=== PATIENT | female | born 1945 | race Caucasian/White ===

== ENCOUNTER 2020-05-31 02:53 | Inpatient (IN) | payer MEDICARE, SELFPAY ==
[2020-05-31] VITALS (161 sets, daily range): BP systolic 106–220; BP diastolic 53–127; PULSE 51–124; RESP 12–39; TEMP 36.2–36.9; O2SAT 78–100; BMI 33.3
--- NOTE | 2020-05-31 02:54 | XR_ITS ---
WS: [id number] Exam: XR chest 1V portable [id number] Date/Time of Exam: 05/31/2020 3:16 AM Reason For Exam: ams Comparison 07/30/2016. Infiltrate along the left heart border and probably in the left lower lobe. There may also be right p erihilar infiltrate. Cardiomediastinal structures are unremarkable for portable AP technique. Lung vo lumes are decreased secondary to limited inspiration. No pneumothorax. No pleural effusion. Pulmonary vascularity is prominent which may be due to Limited inspiration. Recommendations: A detailed PA and lateral chest radiograph would be helpful for follow-up. XR/XR chest 1V portable [id number] IMPRESSION: 1. Infiltrates in the region of the lingula and possibly the left lower lobe collins spicious for developing pneumonia. There may also be right perihilar infiltrate .
--- NOTE | 2020-05-31 02:54 | CTR_ITS ---
PROCEDURE INFORMATION: Exam: CT Head Without Contrast Exam date and time: 05/31/2020 2:56 AM Age: 74 years old Clinical indication: Speech disturbance and weakness, extremity; Patient HX: Poss CVA. Patient C/O numbness tingling to right upper extremity. Intermittent slurred speech. Uncontrolled full body tremors. Emesis while on CT table. ; Additional info: AMS TECHNIQUE: Imaging protocol: Computed tomography of the head without contrast. Radiation optimization: All CT scans at this facility use at least one of these dose optimization techniques: automated exposure control; mA and/or kV adjustment per patient size (includes targeted exams where dose is matched to clinical indication); or iterative reconstruction. Other technique: STROKE PROTOCOL was implemented. COMPARISON: No relevant prior studies available. RADIATION DOSE METRICS: Total DLP (mGy-cm): 1328.04 FINDINGS: Brain: Normal. No hemorrhage. Unremarkable white matter. No mass effect. Cerebral ventricles: No ventriculomegaly. Bones/joints: Unremarkable. No acute fracture. Paranasal sinuses: Visualized sinuses are unremarkable. No fluid levels. Mastoid air cells: Visualized mastoid air cells are well aerated. Soft tissues: Unremarkable. CT/CT head wo con* [id number] IMPRESSION: No acute intracranial abnormality. ASSESSMENT: ASPECTS ([place] Stroke Program Early CT Score) is 10 Radiation Dose CTDIVOL = (mGy): DLP = 1328.04 (mGy-cm)
--- NOTE | 2020-05-31 02:55 | ECG_ITS ---
[facility] Test Date: 2020-05-31 Pat Name: Katy Noble Department: Room: Gender: Female Bioinformatics Assistant: : 1945 Requested By: Davi Garcia Order Number: [id number] Jackson MD: Herbert Brown M.D. Measurements Intervals Martha Rate: 96 P: 61 IL: 200 QRS: -3 QRSD: 106 T: 89 QT: 371 QTc: 470 Interpretive Statements SINUS RHYTHM POSSIBLE LEFT ATRIAL ENLARGEMENT [-0.1mV P WAVE IN V1/V2] LEFT VENTRICULAR HYPERTROPHY AND ST-T CHANGE [VOLTAGE CRITERIA PLUS ST/T ABNORMALITY] Compared to ECG 07/28/2016 14:23:42 ST (T wave) deviation now present T-wave abnormality no longer present Electronically Signed On 05-31-2020 18:02:54 CAMP DISHWASHER by Herbert Brown M.D. [id number]
--- NOTE | 2020-05-31 02:56 | W.ED.NEUROSD ---
HPI - Neuro Symptoms/Deficit General: Chief Complaint: Neuro Symptoms/Deficit Stated Complaint: poss stroke Time Seen by Provider: 05/31/20 02:54 Source: patient and EMS Mode of arrival: EMS Limitations: no limitations History of Present Illness: HPI Narrative: Katy is a 74-year-old female who states she has been having numbness down her left arm since 6 PM yesterday. Patient also has had nausea vomiting complains of a slight headache. Patient has chorea-like movements and states she has had this for years. She denies any specific weaknesses. Denies any slurred speech. States she has the severe numbness though on her arm and leg. Patient does have some aphasia and seems to have a hard time finding words. Associated symptoms: Deny chest pain, headache(s), nausea or vomiting Review of Systems Const: Denies: fever(s), chills, body aches or change in appetite Eyes: Denies: blurry vision or eye discomfort ENMT: Denies: throat pain or dental pain Card: Denies: chest pain Resp: Denies: dyspnea GI: Denies: abdominal pain, nausea, vomiting or diarrhea : Denies: dysuria Musc: Denies: neck pain or back pain Skin/Breast: Denies: rash Neuro: Reports: numbness in extremities; Denies: headache(s) Psych: Denies: depression [place]/Lymph: Denies: easy bruising All/Imm: Denies: urticaria NIH stroke score NIHSS: Level Of Consciousness - 1a: 0 Level Of Consciousness Questions - 1b: Both Correct Level Of Consciousness Commands - 1c: Both Correct Best Gaze - 2: Normal Visual Lander[place] - 3: No Visual Loss Facial Palsy - 4: Normal Motor Arm Right - 5: No Drift Motor Arm Left - 5: No Drift Motor Leg Right - 6: No Drift Motor Leg Left - 6: No Drift Limb Ataxia - 7: Absent Sensory - 8: Mild To Moderate Loss Best Language - 9: Mild/Moderate Aphasia Dysarthia - 10: Normal Extinction And Inattention - 11: 0 Score: Total Score: 2 Physical Exam Const: COMMON NORMALS: patient oriented x3 OTHER: Patient appears very anxious and has severe movements to all extremities HENMT: COMMON NORMALS: normocephalic and atraumatic HEAD & SCALP: normocephalic and atraumatic Eye: COMMON NORMALS: Equal, round and reactive pupils present and EOMs intact bilaterally PUPIL: Yes Equal, round and reactive pupils present Neck/C-Spine: COMMON NORMALS: full ROM and supple Chest: COMMONS NORMALS: normal inspection of the chest and normal palpation of entire chest wall Resp: COMMON NORMALS: normal respiratory effort, No retractions, No use of accessory muscles and clear to auscultation bilaterally AUSCULTATION: clear to auscultation bilaterally Cardio: COMMON NORMALS: regular rate, regular rhythm and No murmurs present (Cardio) RATE: regular rate RHYTHM: regular rhythm GI: COMMON NORMALS: Normal to inspection, nondistended, normoactive bowel sounds present, Soft to palpation, non-tender and no masses PALPATION: Yes Soft to palpation Extremity: COMMON NORMALS: normal to inspection and full ROM Neuro: COMMON NORMALS: patient oriented x3, moves all extremities and no focal motor deficits OTHER: Some decrease sensation to the right arm and leg. Patient seems to have some aphasia as well. Psych: COMMON NORMALS: mental status grossly normal, Normal thought process present and cooperative THOUGHT PROCESS: Normal thought process present Skin: COMMON NORMALS: no rashes or lesions noted and no wounds GENERAL SKIN EXAM: no rashes or lesions noted Course Vital Signs: Vital signs: Vital Signs Temperature 98.1 F 05/31/20 02:53 Pulse Rate 69 05/31/20 04:12 Respiratory Rate 12 05/31/20 04:12 Blood Pressure 182/73 05/31/20 04:12 Pulse Oximetry 100 05/31/20 04:12 MDM - Neuro Symptoms/Deficit MDM Narrative: Medical decision making narrative: Patient presents here with paresthesias along with some word finding difficulties. Patient's head CT here showed no acute findings. Her CTA showed some right internal carotid stenosis but no signs of acute thrombus. Patient is not a TPA candidate as her symptoms started last night at 6 PM so she is significantly out of the time window for TPA. She is also found to have a urinary tract infection that could be causing some of the symptoms. Did have to give her Ativan here for her to be able to sit still for the CAT scans. I spoke to the hospitalist and will admit at this time. Lab Data: Labs: Lab Results 05/31/20 05/31/20 05/31/20 Range/Units 03:25 03:25 03:25 WBC 11.7 H (4.0-10.0) 10^3/ uL RBC 3.31 L (4.1-5.3) 10^6/u L Hgb 10.0 L (11.5-15.3) g/dL Hct 33.8 L (37.0-47.0) % MCV 102.1 H (81-99) fL MCH 30.2 (28.0-34.0) pg MCHC 29.6 L (30.0-36.0) g/dL RDW 19.0 H (12.1-15.1) % Plt Count 391 (130-400) 10^3/c mm MPV 11.1 H (7.4-10.4) fL Neut % (Auto) 73.5 % Lymph % (Auto) 16.2 % [place] % (Auto) 8.0 % Eos % (Auto) 1.0 % Baso % (Auto) 0.4 % Neut # (Auto) 8.58 H (1.8-7.7) 10^3/u L Lymph # (Auto) 1.9 (0.8-4.8) 10^3/u L [place] # (Auto) 0.9 (0.2-0.9) 10^3/u L Eos # (Auto) 0.1 (0.0-0.8) 10^3/u L Baso # (Auto) 0.1 (0.0-0.1) 10^3/u L Nucleated RBC % (a uto) 0 % Nucleated RBCs # 0.0 /100WBC PT 12.90 (12.1-14.9) SECO NDS INR 0.94 (0.8-1.2) Sodium 135 L (136-145) mmol/L Potassium 3.0 L (3.5-5.1) mmol/L Chloride 97 L (98-107) mmol/L Carbon Dioxide 24 (22-29) mmol/L Anion Gap 17.0 (5-19) BUN 37 H (8-23) mg/dL Creatinine 2.0 H (0.5-0.9) mg/dL GFR Calculation Not Reportable Glucose 74 (65-115) mg/dL Calculated Osmolal ity 287 (285-295) mOsm/k g Calcium 9.8 (8.5-10.5) mg/dL Total Bilirubin 0.2 (0.15-1.2) mg/dL AST 17 (0-32) U/L ALT 10 (0-33) U/L Alkaline Phosphata se 92 (35-105) IU/L Total Protein 7.7 (6.6-8.7) g/dL Albumin 4.2 (3.5-5.2) g/dL Globulin 3.5 (1.3-4.6) g/dL Urine Color (Yellow) Urine Appearance (CLEAR) Urine pH (5-7) Ur Specific Gravit y (1.005-1.030) Urine Protein (Negative) Urine Glucose (UA) (Normal) Urine Ketones (Negative) Urine Blood (Negative) Urine Nitrate (Negative) Urine Bilirubin (Negative) Urine Urobilinogen (Negative) mg/dL Ur Leukocyte Delmy ase (Negative) Urine RBC (0-2) /hpf Urine WBC (0-5) /hpf Ur Squamous Epith Cells (0-5) /hpf Amorphous Sediment Urine Bacteria (NONE) /hpf 05/31/20 Range/Units 03:29 WBC (4.0-10.0) 10^3/ uL RBC (4.1-5.3) 10^6/u L Hgb (11.5-15.3) g/dL Hct (37.0-47.0) % MCV (81-99) fL MCH (28.0-34.0) pg MCHC (30.0-36.0) g/dL RDW (12.1-15.1) % Plt Count (130-400) 10^3/c mm MPV (7.4-10.4) fL Neut % (Auto) % Lymph % (Auto) % [place] % (Auto) % Eos % (Auto) % Baso % (Auto) % Neut # (Auto) (1.8-7.7) 10^3/u L Lymph # (Auto) (0.8-4.8) 10^3/u L [place] # (Auto) (0.2-0.9) 10^3/u L Eos # (Auto) (0.0-0.8) 10^3/u L Baso # (Auto) (0.0-0.1) 10^3/u L Nucleated RBC % (a uto) % Nucleated RBCs # /100WBC PT (12.1-14.9) SECO NDS INR (0.8-1.2) Sodium (136-145) mmol/L Potassium (3.5-5.1) mmol/L Chloride (98-107) mmol/L Carbon Dioxide (22-29) mmol/L Anion Gap (5-19) BUN (8-23) mg/dL Creatinine (0.5-0.9) mg/dL GFR Calculation Glucose (65-115) mg/dL Calculated Osmolal ity (285-295) mOsm/k g Calcium (8.5-10.5) mg/dL Total Bilirubin (0.15-1.2) mg/dL AST (0-32) U/L ALT (0-33) U/L Alkaline Phosphata se (35-105) IU/L Total Protein (6.6-8.7) g/dL Albumin (3.5-5.2) g/dL Globulin (1.3-4.6) g/dL Urine Color Yellow (Yellow) Urine Appearance Hazy A (CLEAR) Urine pH 5.0 (5-7) Ur Specific Gravit y 1.010 (1.005-1.030) Urine Protein 1+ H (Negative) Urine Glucose (UA) Norm (Normal) Urine Ketones Negative (Negative) Urine Blood Neg (Negative) Urine Nitrate Positive H (Negative) Urine Bilirubin Neg (Negative) Urine Urobilinogen Norm (Negative) mg/dL Ur Leukocyte Delmy ase Negative (Negative) Urine RBC None (0-2) /hpf Urine WBC 5-10 H (0-5) /hpf Ur Squamous Epith Cells None (0-5) /hpf Amorphous Sediment Not Reportable Urine Bacteria 4+ H (NONE) /hpf Imaging Data^: CXR: Attestation: I personally reviewed and interpreted this imaging study as follows: My impression: no acute abnormality Radiologist's impression: [address] [address] [address] Scan Report Signed Patient: Katy Noble Unit #: [id number] : 1945 Age/Sex: 74 / F ADM Date: 05/31/20 Loc: ER Room/Bed: Attending Dr: Ordering Provider/Ordering MD: Davi Garcia MD Date of Service: 05/31/20 Procedure(s): CT head wo con* [id number] Accession Number(s): [id number] Report Number: [id number] PROCEDURE INFORMATION: Exam: CT Head Without Contrast Exam date and time: 05/31/2020 2:56 AM Age: 74 years old Clinical indication: Speech disturbance and weakness, extremity; Patient HX: Poss CVA. Patient C/O numbness tingling to right upper extremity. Intermittent slurred speech. Uncontrolled full body tremors. Emesis while on CT table. ; Additional info: AMS TECHNIQUE: Imaging protocol: Computed tomography of the head without contrast. Radiation optimization: All CT scans at this facility use at least one of these dose optimization techniques: automated exposure control; mA and/or kV adjustment per patient size (includes targeted exams where dose is matched to clinical indication); or iterative reconstruction. Other technique: STROKE PROTOCOL was implemented. COMPARISON: No relevant prior studies available. RADIATION DOSE METRICS: Total DLP (mGy-cm): 1328.04 FINDINGS: Brain: Normal. No hemorrhage. Unremarkable white matter. No mass effect. Cerebral ventricles: No ventriculomegaly. Bones/joints: Unremarkable. No acute fracture. Paranasal sinuses: Visualized sinuses are unremarkable. No fluid levels. Mastoid air cells: Visualized mastoid air cells are well aerated. Soft tissues: Unremarkable. CT/CT head wo con* [id number] IMPRESSION: No acute intracranial abnormality. cta: Radiologist's impression: [place] [address] CT Scan Report Signed Patient: Katy Noble Unit #: [id number] : 1945 Age/Sex: 74 / F ADM Date: 05/31/20 Loc: ER Room/Bed: Attending Dr: Ordering Provider/Ordering MD: Davi Garcia MD Date of Service: 05/31/20 Procedure(s): CT angio headneck* [id number] Accession Number(s): [id number] Report Number: [id number] PROCEDURE INFORMATION: Exam: CT Angiography Head With Contrast Exam date and time: 05/31/2020 3:16 AM Age: 74 years old Clinical indication: Speech disturbance and weakness; Patient HX: Poss CVA. Patient C/O numbness tingling to right upper extremity. Intermittent slurred speech. Uncontrolled full body tremors. Emesis while on CT table. TECHNIQUE: Imaging protocol: Computed tomography angiography of the head with intravenous contrast. 3D rendering (Not supervised by radiologist): MIP and/or 3D reconstructed images were created by the technologist. Radiation optimization: All CT scans at this facility use at least one of these dose optimization techniques: automated exposure control; mA and/or kV adjustment per patient size (includes targeted exams where dose is matched to clinical indication); or iterative reconstruction. Contrast material: VISI 320; Contrast volume: 95 ml; Contrast route: INTRAVENOUS (IV); COMPARISON: CT head wo con* [id number] 05/31/2020 2:50 AM RADIATION DOSE METRICS: Total DLP (mGy-cm): 2911.5 FINDINGS: ANTERIOR CIRCULATION: Right internal carotid artery: Unremarkable. Intracranial segment is patent with no significant stenosis. No aneurysm. Right middle cerebral artery: Unremarkable. No occlusion or significant stenosis. No aneurysm. Right anterior cerebral artery: Unremarkable. No occlusion or significant stenosis. No aneurysm. Left internal carotid artery: Unremarkable. Intracranial segment is patent with no significant stenosis. No aneurysm. Left middle cerebral artery: Unremarkable. No occlusion or significant stenosis. No aneurysm. Left anterior cerebral artery: Is hypoplastic. No occlusion or significant stenosis. No aneurysm. POSTERIOR CIRCULATION: Right vertebral artery: Unremarkable. No occlusion or significant stenosis. No aneurysm. Left vertebral artery: Is dominant. No occlusion or significant stenosis. No aneurysm. Basilar artery: Unremarkable. No occlusion or significant stenosis. No aneurysm. Right posterior cerebral artery: Unremarkable. No occlusion or significant stenosis. No aneurysm. Left posterior cerebral artery: Unremarkable. No occlusion or significant stenosis. No aneurysm. Brain: No definite mass, mass effect, or midline shift. Cerebral ventricles: No ventriculomegaly. Bones/joints: Unremarkable. No acute fracture. Soft tissues: Unremarkable. IMPRESSION: No large vessel stenosis or occlusion. PROCEDURE INFORMATION: Exam: CT Angiography Neck With Contrast Exam date and time: 05/31/2020 3:16 AM Age: 74 years old Clinical indication: Speech disturbance and weakness; Patient HX: Poss CVA. Patient C/O numbness tingling to right upper extremity. Intermittent slurred speech. Uncontrolled full body tremors. Emesis while on CT table. TECHNIQUE: Imaging protocol: Computed tomography angiography of the neck with intravenous contrast. 3D rendering (Not supervised by radiologist): MIP and/or 3D reconstructed images were created by the technologist. Radiation optimization: All CT scans at this facility use at least one of these dose optimization techniques: automated exposure control; mA and/or kV adjustment per patient size (includes targeted exams where dose is matched to clinical indication); or iterative reconstruction. Contrast material: VISI 320; Contrast volume: 95 ml; Contrast route: INTRAVENOUS (IV); COMPARISON: CT head wo con* [id number] 05/31/2020 2:50 AM RADIATION DOSE METRICS: Total DLP (mGy-cm): 2911.5 FINDINGS: Right common carotid artery: No stenosis. No dissection or occlusion. Right internal carotid artery: Thick calcified plaque disease is seen with 80% stenosis in the proximal portion. Motion artifacts degrade evaluation at the base of the skull. No dissection or occlusion. Right external carotid artery: No occlusion or stenosis of the origin. Right vertebral artery: No stenosis. No dissection or occlusion. Left common carotid artery: No stenosis. No dissection or occlusion. Left internal carotid artery: Evidence of previous surgery is seen with 50% stenosis is identified. The evaluation is limited due to motion artifacts at the base of the skull. No dissection or occlusion. Left external carotid artery: No occlusion or stenosis of the origin. Left vertebral artery: No stenosis. No dissection or occlusion. Bones/joints: Degenerative changes are present. No acute fracture. Soft tissues: The thyroid is enlarged with nodules. CT/CT angio headneck* [id number] IMPRESSION: Severe stenosis is seen in the proximal right internal carotid artery. Possible postop endarterectomy changes are seen on the left side with less than 50% stenosis. REFERENCES: NASCET CRITERIA. The degree of internal carotid artery stenosis is based on NASCET criteria. Normal is no stenosis. Mild is less than 50% stenosis. Moderate is 50-69% stenosis. Severe is 70% to 99% stenosis. Total occlusion is no detectable patent lumen. EKG Data^: EKG 1: Attestation: I personally reviewed and interpreted this EKG as follows: EKG interpretation date: 05/31/20 EKG interpretation time: 03:18 Interpretation: nsr hr [address] or t wave abnormalities qrs 106 qtc 424 Discharge Plan Discharge Clinical Impression: Cerebrovascular accident Qualifiers: CVA mechanism: unspecified Qualified Code(s): I63.9 - Cerebral infarction, unspecified Acute cystitis Qualifiers: Hematuria presence: without hematuria Qualified Code(s): N30.00 - Acute cystitis without hematuria Condition: Stable Prescriptions: No Action metformin 500 mg Tablet 500 mg PO BID RF: 0 hydroxyurea 500 mg Capsule 500 mg PO DAILY RF: 0 Vitamin B-12 2,500 mcg Tablet, Sublingual 2,500 mcg SUBLINGUAL DAILY RF: 0 hydrocodone-acetaminophen 5-325 mg Tablet 1 tab PO BID PRN (Reason: pain) RF: 0 Plavix 75 mg Tablet 75 mg PO DAILY RF: 0 amlodipine 5 mg Tablet 5 mg PO DAILY RF: 0 acetaminophen 500 mg Tablet 500 mg PO Q6H PRN (Reason: pain) RF: 0 Pepcid 20 mg Tablet 20 mg PO DAILY RF: 0 baclofen 10 mg Tablet 10 mg PO TID RF: 0 Benadryl 25 mg Capsule 25 mg PO Q6H PRN (Reason: Allergy Symptoms) RF: 0 metoprolol tartrate 50 mg Tablet 50 mg PO BID RF: 0 ibuprofen 200 mg Tablet 200 mg PO Q6H PRN (Reason: Pain) RF: 0 docusate sodium 100 mg Capsule 100 mg PO DAILY RF: 0 gabapentin 300 mg Capsule 300 mg PO BID RF: 0 sertraline 50 mg Tablet 50 mg PO DAILY RF: 0 Acidophilus Tablet,Chewable 1 tab PO DAILY RF: 0 Referrals: Daniel Mae [Primary Care Provider] - Coding Level of Care Code ED Center Administrator for Chg Fwd Exam Comprehensive
--- NOTE | 2020-05-31 03:01 | CTR_ITS ---
PROCEDURE INFORMATION: Exam: CT Angiography Head With Contrast Exam date and time: 05/31/2020 3:16 AM Age: 74 years old Clinical indication: Speech disturbance and weakness; Patient HX: Poss CVA. Patient C/O numbness tingling to right upper extremity. Intermittent slurred speech. Uncontrolled full body tremors. Emesis while on CT table. TECHNIQUE: Imaging protocol: Computed tomography angiography of the head with intravenous contrast. 3D rendering (Not supervised by radiologist): MIP and/or 3D reconstructed images were created by the technologist. Radiation optimization: All CT scans at this facility use at least one of these dose optimization techniques: automated exposure control; mA and/or kV adjustment per patient size (includes targeted exams where dose is matched to clinical indication); or iterative reconstruction. Contrast material: VISI 320; Contrast volume: 95 ml; Contrast route: INTRAVENOUS (IV); COMPARISON: CT head wo con* [id number] 05/31/2020 2:50 AM RADIATION DOSE METRICS: Total DLP (mGy-cm): 2911.5 FINDINGS: ANTERIOR CIRCULATION: Right internal carotid artery: Unremarkable. Intracranial segment is patent with no significant stenosis. No aneurysm. Right middle cerebral artery: Unremarkable. No occlusion or significant stenosis. No aneurysm. Right anterior cerebral artery: Unremarkable. No occlusion or significant stenosis. No aneurysm. Left internal carotid artery: Unremarkable. Intracranial segment is patent with no significant stenosis. No aneurysm. Left middle cerebral artery: Unremarkable. No occlusion or significant stenosis. No aneurysm. Left anterior cerebral artery: Is hypoplastic. No occlusion or significant stenosis. No aneurysm. POSTERIOR CIRCULATION: Right vertebral artery: Unremarkable. No occlusion or significant stenosis. No aneurysm. Left vertebral artery: Is dominant. No occlusion or significant stenosis. No aneurysm. Basilar artery: Unremarkable. No occlusion or significant stenosis. No aneurysm. Right posterior cerebral artery: Unremarkable. No occlusion or significant stenosis. No aneurysm. Left posterior cerebral artery: Unremarkable. No occlusion or significant stenosis. No aneurysm. Brain: No definite mass, mass effect, or midline shift. Cerebral ventricles: No ventriculomegaly. Bones/joints: Unremarkable. No acute fracture. Soft tissues: Unremarkable. IMPRESSION: No large vessel stenosis or occlusion. PROCEDURE INFORMATION: Exam: CT Angiography Neck With Contrast Exam date and time: 05/31/2020 3:16 AM Age: 74 years old Clinical indication: Speech disturbance and weakness; Patient HX: Poss CVA. Patient C/O numbness tingling to right upper extremity. Intermittent slurred speech. Uncontrolled full body tremors. Emesis while on CT table. TECHNIQUE: Imaging protocol: Computed tomography angiography of the neck with intravenous contrast. 3D rendering (Not supervised by radiologist): MIP and/or 3D reconstructed images were created by the technologist. Radiation optimization: All CT scans at this facility use at least one of these dose optimization techniques: automated exposure control; mA and/or kV adjustment per patient size (includes targeted exams where dose is matched to clinical indication); or iterative reconstruction. Contrast material: VISI 320; Contrast volume: 95 ml; Contrast route: INTRAVENOUS (IV); COMPARISON: CT head wo con* [id number] 05/31/2020 2:50 AM RADIATION DOSE METRICS: Total DLP (mGy-cm): 2911.5 FINDINGS: Right common carotid artery: No stenosis. No dissection or occlusion. Right internal carotid artery: Thick calcified plaque disease is seen with 80% stenosis in the proximal portion. Motion artifacts degrade evaluation at the base of the skull. No dissection or occlusion. Right external carotid artery: No occlusion or stenosis of the origin. Right vertebral artery: No stenosis. No dissection or occlusion. Left common carotid artery: No stenosis. No dissection or occlusion. Left internal carotid artery: Evidence of previous surgery is seen with 50% stenosis is identified. The evaluation is limited due to motion artifacts at the base of the skull. No dissection or occlusion. Left external carotid artery: No occlusion or stenosis of the origin. Left vertebral artery: No stenosis. No dissection or occlusion. Bones/joints: Degenerative changes are present. No acute fracture. Soft tissues: The thyroid is enlarged with nodules. CT/CT angio headneck* [id number] IMPRESSION: Severe stenosis is seen in the proximal right internal carotid artery. Possible postop endarterectomy changes are seen on the left side with less than 50% stenosis. REFERENCES: NASCET CRITERIA. The degree of internal carotid artery stenosis is based on NASCET criteria. Normal is no stenosis. Mild is less than 50% stenosis. Moderate is 50-69% stenosis. Severe is 70% to 99% stenosis. Total occlusion is no detectable patent lumen. Radiation Dose CTDIVOL = (mGy): DLP = 2911.5~2911.5 (mGy-cm)
[2020-05-31] MEDS: iodixanol 320 mg/mL 100mL Btl IV (03:20)
[2020-05-31] MEDS: LORazepam 2 mg/mL INJ 1 mL 1 MG IVP (03:22)
[2020-05-31 03:40] LABS: Basophils # 0.1 10^3/uL (0.0-0.1); Basophils % 0.4 %; Eosinophils # 0.1 10^3/uL (0.0-0.8); Hematocrit 33.8 % (37.0-47.0); Lymphocytes # 1.9 10^3/uL (0.8-4.8); Lymphocytes % 16.2 %; Mean Corpuscular HGB Conc 29.6 g/dL (30.0-36.0); Mean Corpuscular Hemoglobin 30.2 pg (28.0-34.0); Mean Corpuscular Volume 102.1 fL (81-99); Mean Platelet Volume 11.1 fL (7.4-10.4); Monocytes # 0.9 10^3/uL (0.2-0.9); Neutrophils # 8.58 10^3/uL (1.8-7.7); Neutrophils % 73.5 %; Nucleated Red Blood Cells % 0 %; Platelet Count 391 10^3/cmm (130-400); Red Blood Count 3.31 10^6/uL (4.1-5.3); White Blood Count 11.7 10^3/uL (4.0-10.0)
[2020-05-31 03:52] LABS: Add Urine Microscopic? YES; Bacteria Urine 4+ /hpf; Bilirubin Urine Neg (Negative); Blood Urine Neg (Negative); Glucose Urine UA Norm (Normal); Ketones Urine Negative (Negative); Leukocyte Esterase Urine Negative (Negative); Nitrate Urine Positive (Negative); Protein Urine 1+ (Negative); Urine Appearance Hazy (CLEAR); Urine Color Yellow (Yellow); Urobilinogen Urine Norm (Negative)
[2020-05-31 03:53] LABS: Add Urine Culture? Yes
[2020-05-31 03:55] LABS: INR 0.94 (0.8-1.2)
[2020-05-31 04:05] LABS: Alanine Aminotransferase 10 U/L (0-33); Albumin Level 4.2 g/dL (3.5-5.2); Alkaline Phosphatase 92 IU/L (35-105); Aspartate Amino Transferase 17 U/L (0-32); Blood Urea Nitrogen 37 mg/dL (8-23); Calcium 9.8 mg/dL (8.5-10.5); Carbon Dioxide 24 mmol/L (22-29); Chloride 97 mmol/L (98-107); Globulin 3.5 g/dL (1.3-4.6); Glucose 74 mg/dL (65-115); Osmolality Calculated 287 mOsm/kg (285-295); Sodium 135 mmol/L (136-145); Total Bilirubin 0.2 mg/dL (0.15-1.2); Total Protein 7.7 g/dL (6.6-8.7)
[2020-05-31] MEDS: cefTRIAXone 1,000 MG in sodium chloride 0.9% (plus) 50 ML 100 MG IV (04:12)
--- NOTE | 2020-05-31 04:15 | PC.NURSE ---
Per Dr Alfred KING.
--- NOTE | 2020-05-31 04:19 | P.HP_ITS ---
Providers/Chief Complaint Primary Care Provider: Daniel Mae Chief Complaint: poss stroke History of Present Illness Katy Noble is a 74 year old female who has previous history of CVA status post left-sided CEA, type 2 diabetes chocolate foot presented today after experiencing numbness of right arm and word finding difficulty. Patient symptoms started around 6 PM when she had an argument with one of her sons who recently moved from [place]. By the time she arrived in the ER she was out of TPA window however her NIH score was 2. Patient's only complaint was sensory deficit in right arm and fluctuant word finding difficulty, no other deficits were noticed, code stroke was not called. Patient was exhibiting purposeless movement of her extremities for which she was given 1 mg of Ativan. By the time I evaluated the patient she was very somnolent however on painful stimuli she open her eyes and told me that she is in the hospital because she was having stroke at home. She was able to squeeze my fingers with good handgrips, she was able to fold her legs bilaterally, pupils are equal and reactive, slight angle of mouth deviation. Patient was showing signs of sleep apnea however on 2 L nasal cannula she was saturating well 93%, she had normal hemodynamics on telemetry. Her diagnostic work-up revealed initial tachycardia and tachypnea with leukocytosis, chest x-ray is concerning for aspiration pneumonitis as per the report patient experienced 1 episode of emesis in the ambulance. She is afebrile, urinalysis reviewed which showed positive nitrites with bacteriuria, worsening chronic kidney disease, chronic anemia macrocytosis CT head unremarkable, CTA head and neck revealed 80% stenosis of right ICA Review of Systems Const: Reports: fatigue; Denies: fever(s) or chills Eyes: Denies: change in vision ENMT: Denies: throat pain Card: Denies: chest pain Resp: Denies: dyspnea GI: Denies: abdominal pain : Denies: flank pain Musc: Denies: neck pain Skin/Breast: Reports: lesions and dry skin Neuro: Reports: numbness in extremities and difficulty communicating thoughts; Denies: headache(s) Psych: Reports: anxiety Endo: Denies: polyuria Toño/Lymph: Denies: easy bruising All/Imm: Denies: urticaria Medications/Allergies Home Medications Medication Instructions Recorded Confirmed Last Taken Type Lactobacillus acidophilus 1 tab PO DAILY 05/31/20 05/31/20 Unknown History [Acidophilus] acetaminophen 500 mg PO Q6H PRN 05/31/20 05/31/20 Unknown History amlodipine 5 mg PO DAILY 05/31/20 05/31/20 Unknown History baclofen 10 mg PO TID 05/31/20 05/31/20 Unknown History clopidogrel [Plavix] 75 mg PO DAILY 05/31/20 05/31/20 Unknown History cyanocobalamin (vitamin B-12) 2,500 mcg SUBLINGUAL DAILY 05/31/20 05/31/20 Unknown History [Vitamin B-12] diphenhydramine HCl [Benadryl] 25 mg PO Q6H PRN 05/31/20 05/31/20 Unknown History docusate sodium 100 mg PO DAILY 05/31/20 05/31/20 Unknown History famotidine [Pepcid] 20 mg PO DAILY 05/31/20 05/31/20 Unknown History gabapentin 300 mg PO BID 05/31/20 05/31/20 Unknown History hydrocodone-acetaminophen 1 tab PO BID PRN 05/31/20 05/31/20 Unknown History hydroxyurea 500 mg PO DAILY 05/31/20 05/31/20 Unknown History ibuprofen 200 mg PO Q6H PRN 05/31/20 05/31/20 Unknown History metformin 500 mg PO BID 05/31/20 05/31/20 Unknown History metoprolol tartrate 50 mg PO BID 05/31/20 05/31/20 Unknown History sertraline 50 mg PO DAILY 05/31/20 05/31/20 Unknown History Allergies Allergy/AdvReac Type Severity Reaction Status Date / Time morphine Allergy Unknown Verified 05/31/20 02:59 Sulfa (Sulfonamide Allergy Unknown Verified 05/31/20 02:59 Antibiotics) PFSH Acute PFSH: Medical History Charcot foot due to diabetes mellitus Chronic kidney disease Coronary artery disease Diabetes Diabetic foot ulcer History of hyperbaric oxygen therapy Hypertension Osteomyelitis PUD (peptic ulcer disease) Stroke Surgical History S/P carotid endarterectomy S/P PICC central line placement Patient had tunneled left subclavian central line for IV antibiotics for osteomyelitis which was removed by Dr. Zelaya 2016 Family History Other Family history non-contributory Social History Smoking and tobacco status: never smoked Alcohol intake: never Substance/Drug Use: never Household members: family Housing: House Vitals/I&O/Wt Last Vital Signs Temp 98.1 F 05/31/20 02:53 Pulse 69 05/31/20 04:12 Resp 12 05/31/20 04:12 BP 182/73 05/31/20 04:12 Pulse Ox 100 05/31/20 04:12 Weight last 48 hrs Weight 96.615 kg Physical Exam Narrative: EXAM NARRATIVE: elderly female Initial NIH 2 currently somnolent after getting 1 mg of Ativan showing signs of sleep apnea Does not look dehydrated or fluid overloaded Currently saturating well with normal hemodynamics She is verbally redirectable, no motor deficit noted able to squeeze my fingers with good handgrip hip extension and flexion bilaterally Charcot foot with no active open wounds S1, S2 sinus rhythm Abdomen soft bowel sound present Bilateral breath sounds without adventitious rhonchi or crackles Pupils are equal and reactive to light no asymmetry noted, angle of mouth deviated towards left Somnolent behavior after Ativan Lower extremity does not show any sign ischemia gangrene ulcer or cellulitis No joint swelling noted Data : 05/31/20 03:25 05/31/20 03:25 A&P Assessment and plan (1) Cerebrovascular accident: Status: Acute Qualifiers: CVA mechanism: unspecified Qualified Code(s): I63.9 - Cerebral infarction, unspecified (2) Acute cystitis: Status: Acute Qualifiers: Hematuria presence: without hematuria Qualified Code(s): N30.00 - Acute cystitis without hematuria (3) Aspiration pneumonitis: Status: Acute (4) Sepsis: Status: Acute (5) Acute kidney injury superimposed on chronic kidney disease: Status: Acute Additional A&P Information Acute ischemic stroke Last well-known time was 6 PM, was not a TPA candidate at the time of arrival in the ER she was out of TPA window NIH score 2 for word finding difficulty and sensory deficit of right arm Choreoathetoid movement of upper and lower extremities, highly doubt she had any seizure-like activity, as per the family she exhibited similar presentation when there were some social stressors in the family a year ago EKG showing sinus rhythm, CTA head and neck reveals 80% stenosis of right ICA, status post left CEA, I will start her on aspirin, Plavix with high-dose statins Would obtain prolactin level MRI head to rule out acute stroke Sepsis Criteria met with tachycardia, tachypnea and leukocytosis, most likely source is UTI however aspiration pneumonitis changes noted as well, patient reportedly vomited in the ambulance, she is afebrile, I would not start any anaerobic c overage for now however would use ceftriaxone for possible UTI She is normotensive, will give her 1 L bolus normal saline Acute on chronic kidney disease Her baseline creatinine seems to be around 1.2-1.5 current creatinine is 2, I would hold ibuprofen I see hydroxyurea and her home medications at this point I am not really sure about the indication of this medication Hold gabapentin for now along Metformin Full code Cardiac diet Physical therapy evaluation in the morning DVT prophylaxis Heparin Attestations Medical Necessity Statement*: Anticipating discharge in less than 48 hours she will need MRI of the head to rule out ischemic stroke Time Spent in Patient Care: (>than 50% of time spent in counselling and/or direct pt care on unit) . 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
--- NOTE | 2020-05-31 04:33 | PC.NURSE ---
Son updated on pt status, all questions answered. Per son, pt called brother (in [place]) yesterday and asked that he come visit her. Pt then turned her cell phone off. Son called police to do well person check. Pt was at baseline at that time. Son asked about pts jerking movements and son stated that he did not know pts current baseline because he has not seen her recently.
--- NOTE | 2020-05-31 05:09 | PC.NURSE ---
Pt presented to ER with with jerking movements, unable to lie flat for head CT. Pt actively vomiting. Pt states repeatedly im having tingling in my arms . Pt is awake and able to speak. IV ativan given for CT. B/P elevated, on 2LNC.
[2020-05-31 05:13] LABS: ABG PCO2 59.2 mmHg (35-45); ABG PH Result 7.29 (7.35-7.45); Arterial Blood Gas Hematocrit 29.8 % (37-47); Base Excess ABG 0.8 mmol/L (-2.0-2.0); Blood Gas Operator Identificat HARKR; Blood Gas Sample Site Brachial, right; Blood Gas Sample Type Arterial; HCO3 ABG 28.2 mmol/L (22-26); Oxygen Device NC; PO2 ABG 81.3 mmHg (80.0-100.0)
[2020-05-31] MEDS: dextrose 50% syringe 50 mL IVP (05:18)
[2020-05-31 05:22] LABS: Glucose Point of Care 38 mg/dL (70-110)
[2020-05-31] MEDS: naloxone 0.4 mg/ml SDV IVP (05:29)
--- NOTE | 2020-05-31 05:48 | PC.NURSE ---
Repeat glucose 118
[2020-05-31 05:51] LABS: Glucose Point of Care 519 mg/dL (70-110)
[2020-05-31 05:51] LABS: Glucose Point of Care 118 mg/dL (70-110)
[2020-05-31 06:16] LABS: ABG PCO2 42.6 mmHg (35-45); ABG PH Result 7.41 (7.35-7.45); Arterial Blood Gas Hematocrit 27.1 % (37-47); Base Excess ABG 1.7 mmol/L (-2.0-2.0); Blood Gas Allen Test Pos; Blood Gas Operator Identificat HARKR; Blood Gas Sample Site Radial, right; Blood Gas Sample Type Arterial; HCO3 ABG 26.7 mmol/L (22-26); Oxygen Device BIPAP
[2020-05-31 06:25] LABS: Glucose Point of Care 181 mg/dL (70-110)
[2020-05-31] MEDS: lidocaine 1% 5 ML in potassium chloride premix 100 ML 25 ML IV (06:26)
[2020-05-31 06:44] LABS: Glucose Point of Care 199 mg/dL (70-110)
[2020-05-31] MEDS: hyDRALAzine 20 mg/mL INJ 1 mL 10 MG IVP (08:45)
--- NOTE | 2020-05-31 09:04 | PC.NURSE ---
Messaged Dr East via Voalte at 0823 pertaining to patients blood pressure trending up which was 133/68 at 0700 this morning to manual 216/91 at 0820. Continued to monitor patient blood pressure manually. Patient received 10mg Hydralazine IVP for manual blood pressure of 220/90. Called [facility] to update patient with manual blood pressure of 180/62 at 0856
--- NOTE | 2020-05-31 10:55 | PM.PN ---
Subjective Subjective: Interval history: Overnight labs and H&P reviewed. Seen and examined while in the ER, she was on Bipap at the time, saturating 96-97%, woke up after calling out her name multiple times, then she was awake, alert and oriented, correctly stated her name, age and , knew she was in hospital but could not tell me which one. Lifting both upper extremities in bed, states this is much improved compared to last night, able to move both lower extremities against gravity. Medications: Reviewed: Yes Vitals/I&O/Wt Last Vital Signs Temp 98.1 F 05/31/20 02:53 Pulse 52 L 05/31/20 10:10 Resp 14 05/31/20 09:30 BP 180/82 05/31/20 09:30 Pulse Ox 100 05/31/20 10:10 05/30/20 05/31/20 05/31/20 22:59 06:59 14:59 Intake Total 50 / 50 Balance 50 / 50 Weight last 48 hrs Weight 96.615 kg Physical Exam Narrative: EXAM NARRATIVE: GEN: Awake, alert and oriented when awake, no acute distress , when awake, has coarse intention tremors of all extremities. These are not evident at rest. HEENT: Bipap at present. CVS: S1S2 N RS: CTA B/L Abd: Soft, nt/nd , bs+ SOFTWARE TEAM LEADER: no focal neuro deficits , no facial asymmetry Data : 05/31/20 03:25 05/31/20 03:25 A&P Assessment and plan (1) Cerebrovascular accident: Status: Acute Qualifiers: CVA mechanism: unspecified Qualified Code(s): I63.9 - Cerebral infarction, unspecified (2) Acute cystitis: Status: Acute Qualifiers: Hematuria presence: without hematuria Qualified Code(s): N30.00 - Acute cystitis without hematuria (3) Aspiration pneumonitis: Status: Acute (4) Sepsis: Status: Acute (5) Acute kidney injury superimposed on chronic kidney disease: Status: Acute Additional A&P Information Acute ischemic stroke/ TIA Last well-known time was 6 PM, was not a TPA candidate at the time of arrival in the ER she was out of TPA window NIH score 2 for word finding difficulty and sensory deficit of right arm Choreoathetoid movement of upper and lower extremities last night, at present these appear to be intention tremors, no abnormal movement noted at rest. EKG showing sinus rhythm, CTA head and neck reveals 80% stenosis of right ICA, status post left CEA, Continue aspirin, Plavix with high-dose statins MRI head to rule out acute stroke pending currently Allow for permissive HTN currently until MRI can be obtained Sepsis, this is excluded currently , patient does not show signs of sepsis Hypoglyccemia to 38, corrected now Acute hypoxic respiratory failure , likely 2/2 hypoglycemia vs receiving Ativan vs possible aspiration. Check Covid rapid Ag. 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
[2020-05-31] MEDS: heparin 5,000 unit/mL INJ 1 mL 5000 UNIT SUBCUT (11:12)
[2020-05-31] MEDS: clopidogrel 75 mg Tablet PO (11:13)
[2020-05-31] MEDS: sertraline 50 mg Tablet PO (11:13)
[2020-05-31] MEDS: aspirin 81 mg EC Tablet PO (11:13)
[2020-05-31] MEDS: amlodipine 5 mg Tablet PO ×2 (11:13→11:47)
[2020-05-31] MEDS: famotidine 20 mg Tablet PO (11:13)
[2020-05-31] MEDS: atorvastatin 40 mg Tablet 80 MG PO (11:13)
[2020-05-31] MEDS: docusate sodium 100 mg Capsule PO (11:13)
[2020-05-31] MEDS: metoprolol tartrate 50 mg Tablet PO ×2 (11:14→20:39)
[2020-05-31] MEDS: acetaminophen 500 mg Tablet PO (11:42)
[2020-05-31 13:19] LABS: Amphetamines Screen Urine Negative (Negative); Barbiturates Screen Urine Negative (Negative); Benzodiazepines Screen Urine Negative (Negative); Cocaine Screen Urine Negative (Negative); Opiate Screen Urine Positive (Negative); PCP Screen Urine Negative (Negative); THC Screen Urine Negative (Negative)
[2020-05-31 13:49] LABS: SARS Covid-2 Antigen Negative (Negative)
--- NOTE | 2020-05-31 14:00 | PC.NURSE ---
Patient appears to be exhibiting signs of paranoid behaviors. She has stated You're not a nurse, you are here to kill me you better run out of my room right now. run Patient continued to yell at this nurse to get out of her room and run. This nurse attempted to reoriented patient, but appeared to make patients mood and mental status worse. Dr. East aware patient is supposed to go to MRI at 1430 Haldol IM 5 mg ordered.
[2020-05-31] MEDS: haloperidol inj 5 mg/mL INJ 1 mL IM (14:13)
[2020-05-31] MEDS: OLANZapine 5 mg ODT PO (16:15)
--- NOTE | 2020-05-31 16:32 | PC.NURSE ---
Patient was given zyprexa 5 mg p.o. patient tolerating well at this time. 2 Liters nasal cannula applied while patient sleeps.
[2020-05-31 17:20] LABS: Glucose Point of Care 59 mg/dL (70-110)
[2020-05-31 20:15] LABS: Glucose Point of Care 132 mg/dL (70-110)
[2020-06-01] VITALS (107 sets, daily range): BP systolic 139–247; BP diastolic 47–104; PULSE 56–108; RESP 2–25; TEMP 36.6–37.3; O2SAT 92–98
[2020-06-01] MEDS: labetalol 5 mg/mL SDV 20mL 10 MG IVP (02:56)
[2020-06-01] MEDS: heparin 5,000 unit/mL INJ 1 mL 5000 UNIT SUBCUT ×3 (02:57→18:15)
[2020-06-01 03:50] LABS: Add Urine Microscopic? YES; Bilirubin Urine Neg (Negative); Blood Urine 2+ (Negative); Glucose Urine UA Norm (Normal); Ketones Urine Negative (Negative); Leukocyte Esterase Urine 1+ (Negative); Nitrate Urine Positive (Negative); Protein Urine Neg (Negative); Urine Appearance Cloudy (CLEAR); Urine Color Yellow (Yellow); Urobilinogen Urine Norm (Negative); pH Urine 6 (5-7)
[2020-06-01 03:51] LABS: Add Urine Culture? Yes; Bacteria Urine 1+ /hpf; RBC Urine 0-4 /hpf (0-2); Squamous Epithelial Cell Urine 0-4 /hpf (0-5); WBC Urine 25-40 /hpf (0-5)
[2020-06-01] MEDS: cefTRIAXone 1,000 MG in sodium chloride 0.9% (plus) 50 ML 100 MG IV (05:03)
[2020-06-01] MEDS: acetaminophen 500 mg Tablet PO (05:10)
[2020-06-01] MEDS: hyDRALAzine 20 mg/mL INJ 1 mL 10 MG IVP (05:11)
[2020-06-01 05:38] LABS: Basophils % 0.5 %; Eosinophils # 0.1 10^3/uL (0.0-0.8); Eosinophils % 2.1 %; Hematocrit 34.6 % (37.0-47.0); Hemoglobin 10.3 g/dL (11.5-15.3); Lymphocytes % 15.7 %; Mean Corpuscular HGB Conc 29.8 g/dL (30.0-36.0); Mean Corpuscular Hemoglobin 30.1 pg (28.0-34.0); Mean Corpuscular Volume 101.2 fL (81-99); Mean Platelet Volume 10.9 fL (7.4-10.4); Monocytes # 0.5 10^3/uL (0.2-0.9); Monocytes % 8.3 %; Neutrophils # 4.47 10^3/uL (1.8-7.7); Neutrophils % 71.8 %; Nucleated Red Blood Cells % 0 %; Platelet Count 336 10^3/cmm (130-400); Red Blood Count 3.42 10^6/uL (4.1-5.3); Red Cell Distribution Width 19.5 % (12.1-15.1); White Blood Count 6.2 10^3/uL (4.0-10.0)
[2020-06-01 06:03] LABS: Alanine Aminotransferase 10 U/L (0-33); Albumin Level 3.6 g/dL (3.5-5.2); Alkaline Phosphatase 93 IU/L (35-105); Anion Gap 12.8 (5-19); Aspartate Amino Transferase 14 U/L (0-32); Blood Urea Nitrogen 25 mg/dL (8-23); Calcium 9.9 mg/dL (8.5-10.5); Carbon Dioxide 29 mmol/L (22-29); Chloride 104 mmol/L (98-107); Globulin 3.3 g/dL (1.3-4.6); Glucose 199 mg/dL (65-115); Osmolality Calculated 304 mOsm/kg (285-295); Potassium 3.8 mmol/L (3.5-5.1); Sodium 142 mmol/L (136-145); Total Bilirubin 0.2 mg/dL (0.15-1.2); Total Protein 6.9 g/dL (6.6-8.7)
--- NOTE | 2020-06-01 06:34 | PC.NURSE ---
ASSUMING CARE Patient resting in bed on room air. Patient is asleep and vital signs are within normal limits.
--- NOTE | 2020-06-01 06:40 | PC.NURSE ---
BLOOD PRESSURE Dr. Simon called to notify of blood pressure of 220/80 manual. Order for 10 mg labetalol one time. Pressure down to 187/79. Will continue to monitor and notify if blood pressure doesnt decrease.
--- NOTE | 2020-06-01 06:44 | PC.NURSE ---
HYDRALAZINE Blood pressure remains high at 210/[address] Simon notified once again and order for 10 mg hydralazine one time ordered. Blood pressure is currently 139/77.
--- NOTE | 2020-06-01 06:46 | PC.NURSE ---
BLADDER SCAN/CATH Patient had been having urinary hesitancy, frequency and burning throughout the night. Patient voided approximately 1,000 mL in bed alvarez but still expressed discomfort. When bladder palpated distention noted. Dr. Simon notified of bladder scan result of approximately 600 mL retention. Order for indwelling catheter until morning and urinalysis. 950 mL of urine output returned immediately after insertion. Dr. Simon notified of large amount of retention and order urinary catheter to stay in for 24 hours.
[2020-06-01] MEDS: phenazopyridine 100 mg Tablet PO ×3 (08:08→18:14)
[2020-06-01] MEDS: atorvastatin 40 mg Tablet 80 MG PO (08:08)
[2020-06-01] MEDS: HYDROcodone-acetaminophen 5-325 mg Tablet 1 TAB PO (08:09)
[2020-06-01] MEDS: sertraline 50 mg Tablet PO (08:09)
[2020-06-01] MEDS: famotidine 20 mg Tablet PO (08:09)
[2020-06-01] MEDS: metoprolol tartrate 50 mg Tablet PO ×2 (08:09→19:46)
--- NOTE | 2020-06-01 08:16 | PC.NURSE ---
Patient reports pain 9/10 and is requesting we restart her home pain med - hydrocodone (5325 q12). Patient's blood pressure is also elevated. 190/82. Nurse repositioned patient to relieve pain. Called Dr gallegos and recieved order for hydrocodone. No new orders for blood pressure at tis time.
[2020-06-01 09:47] LABS: Glucose Point of Care 216 mg/dL (70-110)
--- NOTE | 2020-06-01 10:00 | PM.PN ---
Subjective Subjective: Interval history: alert, awake and oriented this morning, no acte distress, answers all questions appropriately, yesetrday had exhibited some paranoid thoughts wherein she thought her nurses and physicians were trying to harm her, however does not recall this today. 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 Pending MRI, PT eval this morning. Medications: Reviewed: Yes Vitals/I&O/Wt Last Vital Signs Temp 98.8 F 06/01/20 15:20 Pulse 71 06/01/20 15:20 Resp 18 06/01/20 15:20 BP 154/74 06/01/20 15:20 Pulse Ox 94 06/01/20 15:20 06/01/20 06/01/20 06/01/20 06:59 14:59 22:59 Intake Total 50 / 410 Output Total 1300 / 3600 550 / 550 Balance -1250 / -3190 -550 / -550 Weight last 48 hrs Weight 96.615 kg Physical Exam Narrative: EXAM NARRATIVE: GEN: Awake, alert and oriented, no acute distress CVS: S1S2 N RS: CTA B/L Abd: Soft, nt/nd , bs+ TMD TEACHER ASSISTANT: B/L UE 5/5 ; B/L LE 4/5 Urinary Catheter Management^: Rodriguez: Cath Placed During This Visit: yes Reason for Continuing Indwelling Catheter: Acute Urinary Retention or Obstruction Urinary Catheter Date of Insertion: 06/01/20 Urinary Catheter Time of Insertion: 03:15 Data : 06/01/20 04:40 06/01/20 04:40 Micro: Microbiology 05/31/20 03:29 Urine Culture - Preliminary Urine,Clean Catch Gram Negative Rods A&P Assessment and plan (1) Cerebrovascular accident: Status: Acute Qualifiers: CVA mechanism: unspecified Qualified Code(s): I63.9 - Cerebral infarction, unspecified (2) Acute cystitis: Status: Acute Qualifiers: Hematuria presence: without hematuria Qualified Code(s): N30.00 - Acute cystitis without hematuria (3) Aspiration pneumonitis: Status: Acute (4) Sepsis: Status: Acute (5) Acute kidney injury superimposed on chronic kidney disease: Status: Acute Additional A&P Information Acute ischemic stroke/ TIA Last well-known time was 6 PM, was not a TPA candidate at the time of arrival in the ER she was out of TPA window EKG showing sinus rhythm, CTA head and neck reveals 80% stenosis of right ICA, status post left CEA, Continue aspirin, Plavix with high-dose statins. Close outpatient neurology follow up recommended for asymptomatic R carotid stenosis. MRI head to rule out acute stroke pending currently Allow for permissive HTN currently until MRI can be obtained Sepsis, this is excluded currently , patient does not show signs of sepsis UTI: Currently empircally on Ceftriaxone 1g iv q24h , urine cx with prelim GNR, pending final identification Hypoglyccemia to 38, corrected now . Patient reports last hba1c to be 7, frequent hypoglycemic episodes at home. Takes 80 units of Tresiba with insulin sliding scale at home. Currently Hba1c at 6.4,her insulin at home is going to need to be adjusted as outpateint- managed by PCP Dr. Mae. For now resumed low dose sliding scale. Acute hypoxic respiratory failure , likely 2/2 hypoglycemia vs receiving Ativan vs possible aspiration. Covid ag negative. This is now resolved. Metabolic encephalopathy 2/2 hypoglycemia, corrected now, mental status now at baseline Resume home meds hydrocodone, gabapentin and baclofen. 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
[2020-06-01] MEDS: amlodipine 5 mg Tablet PO (10:35)
[2020-06-01] MEDS: gabapentin 300 mg Capsule PO ×2 (10:43→18:14)
[2020-06-01 11:54] LABS: Glucose Point of Care 220 mg/dL (70-110)
--- NOTE | 2020-06-01 12:15 | MR_ITS ---
WS: [id number] MRI HEAD WITHOUT CONTRAST TECHNIQUE: Sagittal T1, T2 axial, T2 axial FLAIR, axial and coronal T1 images, axial susceptibility w eighted imaging, axial diffusion weighted images, and coronal T2 images were obtained. CLINICAL INFORMATION: CVA COMPARISON: CT May 31, 2020 FINDINGS: No evidence of restricted diffusion to suggest acute ischemia. Ventricular system and basilar cistern s are patent. Mild small vessel changes. Mild parenchymal volume loss. Normal posterior fossa. Normal vascular flow voids at the skull base. No extra-axial fluid collections. Chronic lacunar infarct left thalamus. Paranasal sinuses and mastoid air cells well aerated. No hemos iderin and on the susceptibly weighted images. Normal optic chiasm and pituitary infundibulum. Normal cavernous sinuses and Meckel's cave. Moderate symmetric atrophy involving the temporal lobes hippoca mpal formations. MR/MR head wo con* [id number] IMPRESSION: 1. No evidence of restricted diffusion to suggest acute ischemia. 2. Mild small vessel changes with mild parenchymal volume loss. 3. Chronic lacunar infarct left thalamus. 4. Small vessel changes in the yolanda. 5. No hemosiderin on the susceptibility weighted images. 6. Moderate symmetric atrophy involving the temporal lobes and hippocampal for mations.
--- NOTE | 2020-06-01 12:32 | PC.NURSE ---
Patient sent with [facility] ambulance staff to [facility]. Patient is now a med surge patient no nurse did not accompany. Patient recently received insulin per sliding scale and this was the first itme the patient has received the insulin on the new sliding scale orders. Nurse send orange juice with patient.
[2020-06-01 13:17] LABS: Estmated Average Glucose 137; Hemoglobin A1C 6.4 % (4.0-6.0)
--- NOTE | 2020-06-01 14:35 | PC.NURSE ---
Transferred patient to [facility] surge department. Room 259-2. Report given to Nurse Resendez. Belongings sent with patient included Home medications, hospital medications, phone, and spiritual advisor. Transfer uneventful.
[2020-06-01] MEDS: baclofen 10 mg Tablet PO ×2 (15:47→19:46)
[2020-06-01 16:56] LABS: Glucose Point of Care 231 mg/dL (70-110)
[2020-06-01] MEDS: OLANZapine 5 mg ODT PO (19:46)
[2020-06-01 20:30] LABS: Glucose Point of Care 148 mg/dL (70-110)
[2020-06-02] VITALS (9 sets, daily range): BP systolic 132–190; BP diastolic 72–92; PULSE 65–91; RESP 12–20; TEMP 36.7–37.3; O2SAT 93–97
[2020-06-02] MEDS: heparin 5,000 unit/mL INJ 1 mL 5000 UNIT SUBCUT ×3 (02:40→18:09)
[2020-06-02] MEDS: cefTRIAXone 1,000 MG in sodium chloride 0.9% (plus) 50 ML 100 MG IV (04:24)
[2020-06-02] MEDS: HYDROcodone-acetaminophen 5-325 mg Tablet 1 TAB PO ×2 (06:28→18:15)
[2020-06-02 06:51] LABS: Glucose Point of Care 162 mg/dL (70-110)
[2020-06-02] MEDS: metoprolol tartrate 50 mg Tablet PO ×2 (09:38→20:18)
[2020-06-02] MEDS: atorvastatin 40 mg Tablet 80 MG PO (09:38)
[2020-06-02] MEDS: aspirin 81 mg EC Tablet PO (09:38)
[2020-06-02] MEDS: docusate sodium 100 mg Capsule PO (09:38)
[2020-06-02] MEDS: famotidine 20 mg Tablet PO (09:38)
[2020-06-02] MEDS: sertraline 50 mg Tablet PO (09:39)
[2020-06-02] MEDS: phenazopyridine 100 mg Tablet PO ×3 (09:39→18:09)
[2020-06-02] MEDS: baclofen 10 mg Tablet PO (09:39)
[2020-06-02] MEDS: clopidogrel 75 mg Tablet PO (09:39)
[2020-06-02 11:28] LABS: Glucose Point of Care 204 mg/dL (70-110)
[2020-06-02] MEDS: hyDRALAzine 20 mg/mL INJ 1 mL 10 MG IVP (12:29)
--- NOTE | 2020-06-02 12:29 | PC.NURSE ---
safety risk lead gave hydralazine IVP while this nurse observed.
[2020-06-02] MEDS: acetaminophen 500 mg Tablet PO ×2 (14:21→22:10)
[2020-06-02] MEDS: baclofen 10 mg Tablet 20 MG PO ×2 (15:51→20:18)
[2020-06-02 17:00] LABS: Glucose Point of Care 179 mg/dL (70-110)
--- NOTE | 2020-06-02 17:43 | PM.PN ---
Subjective Subjective: Interval history: No acute overnight events. Patient attempted physical therapy today, however complained of being dizzy and unsteady on her feet. She did need assistance with PT to ambulate in the room. She states this is new for her, at a baseline patient is independent of all ADLs. Her blood pressure is noted to be ranging between 1 80-1 90 systolic. Since MRI brain did not reveal any evidence of acute stroke, will start tighter blood pressure control with a target of SBP between 1 40-1 50. Home medication list updated to reflect hydralazine 10 mg p.o. 3 times daily which is resumed, amlodipine increased to 10 mg daily. Medications: Reviewed: Yes Vitals/I&O/Wt Last Vital Signs Temp 98.8 F 06/02/20 15:45 Pulse 81 06/02/20 15:45 Resp 18 06/02/20 15:45 BP 183/82 06/02/20 15:45 Pulse Ox 96 06/02/20 15:45 06/02/20 06/02/20 06/02/20 06:59 14:59 22:59 Intake Total 50 / 170 600 / 600 Output Total 850 / 1875 200 / 200 300 / 500 Balance -800 / -1705 400 / 400 -300 / 100 Physical Exam Narrative: EXAM NARRATIVE: GEN: Awake, alert and oriented, no acute distress CVS: S1S2 N RS: CTA B/L Abd: Soft, nt/nd , bs+ ELECTRICAL SYSTEM SPECIALIST: no focal neuro deficits Urinary Catheter Management^: Rodriguez: Cath Placed During This Visit: yes, but has since been removed by the nurse Reason for Continuing Indwelling Catheter: Other Urinary Catheter Date of Insertion: 06/01/20 Urinary Catheter Time of Insertion: 03:15 Date Urinary Catheter Removed: 06/02/20 Time Urinary Catheter Discontinued: 11:15 Data : 06/01/20 04:40 06/01/20 04:40 Micro: Microbiology 05/31/20 03:29 Urine Culture - Final Urine,Clean Catch Escherichia coli A&P Assessment and plan (1) Cerebrovascular accident: Status: Acute Qualifiers: CVA mechanism: unspecified Qualified Code(s): I63.9 - Cerebral infarction, unspecified (2) Acute cystitis: Status: Acute Qualifiers: Hematuria presence: without hematuria Qualified Code(s): N30.00 - Acute cystitis without hematuria (3) Aspiration pneumonitis: Status: Acute (4) Sepsis: Status: Acute (5) Acute kidney injury superimposed on chronic kidney disease: Status: Acute Additional A&P Information Acute ischemic stroke/ TIA was not a TPA candidate at the time of arrival in the ER she was out of TPA window EKG showing sinus rhythm, CTA head and neck reveals 80% stenosis of right ICA, status post left CEA, Continue aspirin, Plavix with high-dose statins. Close outpatient neurology follow up recommended for asymptomatic R carotid stenosis. Discussed with Dr. Palacios, referral provided within the next 2 weeks. MRI head from 06/01 with no evidence of restricted diffusion to suggest acute ischemia. Chronic lacunar infarct in the left thalamus and small vessel changes in the yolanda noted. Blood pressure systolic ranging between 1 80-1 90, will aim for tighter control now that acute stroke not seen on MRI. Increase amlodipine from 5 mg to 10 mg p.o. daily. Resume home dose of hydralazine. Sepsis, this is excluded currently , patient does not show signs of sepsis UTI: Currently empircally on Ceftriaxone 1g iv q24h , urine culture with alvarez susceptible E. coli, appropriately covered Hypoglyccemia to 38, corrected now . Patient reports last hba1c to be 7, frequent hypoglycemic episodes at home. Takes 80 units of Tresiba with insulin sliding scale at home. Currently Hba1c at 6.4,her insulin at home is going to need to be adjusted as outpateint- managed by PCP Dr. Mae. For now resumed low dose sliding scale. Acute hypoxic respiratory failure , likely 2/2 hypoglycemia vs receiving Ativan vs possible aspiration. Covid ag negative. This is now resolved. Metabolic encephalopathy 2/2 hypoglycemia, corrected now, mental status now at baseline Resume home meds hydrocodone, gabapentin and baclofen. Acute on chronic kidney disease Her baseline creatinine seems to be around 1.2-1.5 , now back at baseline Dispo: Home with HH , patient usually lives alone by herself, given that she is needing assistance at this present time she has spoken to her brother who will come and start living with her on Thursday to help with her day-to-day activities. Full code Cardiac diet DVT prophylaxis Heparin Attestations Medical Necessity Statement*: Admission for optimal blood pressure control, complaints of dizziness today, Needs family to come into town to be with her for a safe discharge. Coding Level of Care Code Acute Manager Sales for Chg Fwd Diagnoses Cerebrovascular accident I63.9 CVA mechanism: unspecified Acute cystitis N30.00 Hematuria presence: without hematuria Aspiration pneumonitis J69.0 Sepsis A41.9 Acute kidney injury superimposed on chronic kidney disease N17.9; N18.9
[2020-06-02] MEDS: gabapentin 300 mg Capsule 600 MG PO (20:18)
[2020-06-02] MEDS: OLANZapine 5 mg ODT PO (20:18)
[2020-06-02 21:04] LABS: Glucose Point of Care 235 mg/dL (70-110)
[2020-06-03] VITALS (8 sets, daily range): BP systolic 145–204; BP diastolic 72–95; PULSE 63–93; RESP 14–18; TEMP 36–37.1; O2SAT 93–98
[2020-06-03] MEDS: heparin 5,000 unit/mL INJ 1 mL 5000 UNIT SUBCUT ×3 (02:23→18:13)
--- NOTE | 2020-06-03 04:11 | PC.NURSE ---
Elevated Blood Pressure Blood pressure 202/93 automatic cuff, reported in opposite arm 204/95. Reported to patient care nurse, NITIN Mujica.
[2020-06-03] MEDS: cefTRIAXone 1,000 MG in sodium chloride 0.9% (plus) 50 ML 100 MG IV (04:54)
[2020-06-03 06:39] LABS: Glucose Point of Care 222 mg/dL (70-110)
[2020-06-03] MEDS: atorvastatin 40 mg Tablet 80 MG PO (08:56)
[2020-06-03] MEDS: clopidogrel 75 mg Tablet PO (08:57)
[2020-06-03] MEDS: docusate sodium 100 mg Capsule PO (08:57)
[2020-06-03] MEDS: baclofen 10 mg Tablet 20 MG PO ×3 (08:57→21:55)
[2020-06-03] MEDS: sertraline 50 mg Tablet PO (08:57)
[2020-06-03] MEDS: famotidine 20 mg Tablet PO (08:57)
[2020-06-03] MEDS: aspirin 81 mg EC Tablet PO (08:57)
[2020-06-03] MEDS: phenazopyridine 100 mg Tablet PO ×3 (09:01→17:17)
[2020-06-03] MEDS: metoprolol tartrate 50 mg Tablet PO ×2 (09:02→21:54)
[2020-06-03] MEDS: HYDROcodone-acetaminophen 5-325 mg Tablet 1 TAB PO (10:23)
[2020-06-03] MEDS: amlodipine 5 mg Tablet 10 MG PO (10:23)
[2020-06-03 10:50] LABS: Glucose Point of Care 206 mg/dL (70-110)
[2020-06-03] MEDS: hyDRALAzine 25 mg Tablet PO ×3 (11:40→21:55)
[2020-06-03] MEDS: acetaminophen 500 mg Tablet PO ×2 (12:50→21:52)
--- NOTE | 2020-06-03 15:09 | PM.PN ---
Subjective Subjective: Interval history: No acute overnight events. Patient's blood pressure continues to be 1 80-1 90 systolic, still complaining of dizziness. Blood pressure ranging between 1 80-1 90 systolic. Hydralazine dose increased today. Medications: Reviewed: Yes Vitals/I&O/Wt Last Vital Signs Temp 98.0 F 06/03/20 11:48 Pulse 63 06/03/20 11:48 Resp 18 06/03/20 11:48 BP 157/79 06/03/20 11:48 Pulse Ox 98 06/03/20 11:48 06/03/20 06/03/20 06/03/20 06:59 14:59 22:59 Intake Total 50 / 1010 360 / 360 Output Total 600 / 1500 Balance -550 / -490 360 / 360 Physical Exam Narrative: EXAM NARRATIVE: GEN: Awake, alert and oriented, no acute distress CVS: S1S2 N RS: CTA B/L Abd: Soft, nt/nd , bs+ FORENSIC ANTHROPOLOGIST: no focal neuro deficits Urinary Catheter Management^: Rodriguez: Cath Placed During This Visit: yes, but has since been removed by the nurse Reason for Continuing Indwelling Catheter: Other Urinary Catheter Date of Insertion: 06/01/20 Urinary Catheter Time of Insertion: 03:15 Date Urinary Catheter Removed: 06/02/20 Time Urinary Catheter Discontinued: 11:15 Data : 06/01/20 04:40 06/01/20 04:40 Micro: Microbiology 05/31/20 03:29 Urine Culture - Final Urine,Clean Catch Escherichia coli A&P Assessment and plan (1) Cerebrovascular accident: Status: Acute Qualifiers: CVA mechanism: unspecified Qualified Code(s): I63.9 - Cerebral infarction, unspecified (2) Acute cystitis: Status: Acute Qualifiers: Hematuria presence: without hematuria Qualified Code(s): N30.00 - Acute cystitis without hematuria (3) Aspiration pneumonitis: Status: Acute (4) Sepsis: Status: Acute (5) Acute kidney injury superimposed on chronic kidney disease: Status: Acute Additional A&P Information Acute ischemic stroke/ TIA was not a TPA candidate at the time of arrival in the ER she was out of TPA window EKG showing sinus rhythm, CTA head and neck reveals 80% stenosis of right ICA, status post left CEA, Continue aspirin, Plavix with high-dose statins. Close outpatient neurology follow up recommended for asymptomatic R carotid stenosis. Discussed with Dr. Palacios, referral provided within the next 2 weeks. MRI head from 06/01 with no evidence of restricted diffusion to suggest acute ischemia. Chronic lacunar infarct in the left thalamus and small vessel changes in the yolanda noted. Blood pressure systolic ranging between 1 80-1 90, will aim for tighter control now that acute stroke not seen on MRI. HTN: Increased amlodipine from 5 mg to 10 mg p.o. daily. Hydralazine 25mg po QID Add meclizine for dizziness Sepsis, this is excluded currently , patient does not show signs of sepsis UTI: Currently empircally on Ceftriaxone 1g iv q24h day 3 today , urine culture with alvarez susceptible E. coli, appropriately covered Hypoglyccemia to 38, corrected now . Patient reports last hba1c to be 7, frequent hypoglycemic episodes at home. Takes 80 units of Tresiba with insulin sliding scale at home. Currently Hba1c at 6.4,her insulin at home is going to need to be adjusted as outpateint- managed by PCP Dr. Mae. For now resumed low dose sliding scale. Acute hypoxic respiratory failure , likely 2/2 hypoglycemia vs receiving Ativan vs possible aspiration. Covid ag negative. This is now resolved. Metabolic encephalopathy 2/2 hypoglycemia, corrected now, mental status now at baseline Resume home meds hydrocodone, gabapentin and baclofen. Acute on chronic kidney disease Her baseline creatinine seems to be around 1.2-1.5 , now back at baseline Dispo: Home with , brother will come liver with her to assist Full code Cardiac diet DVT prophylaxis Heparin Attestations Medical Necessity Statement*: ongoing titration of medication for blood pressure control, awaiting safe discharge, family to come into town tomorrow, patient plan to be discharged in the upcoming 24 to 48 hours with home health. Coding Level of Care Code Acute Industrial Engineering Analyst for Cheri Mace Diagnoses Cerebrovascular accident I63.9 CVA mechanism: unspecified Acute cystitis N30.00 Hematuria presence: without hematuria Aspiration pneumonitis J69.0 Sepsis A41.9 Acute kidney injury superimposed on chronic kidney disease N17.9; N18.9
--- NOTE | 2020-06-03 15:47 | PC.CHAP ---
Pastoral Care Encounter/Spiritual Assessment Type of Contact [] Declined fan blade truer visit [] Patient/Family/Request visit [] Outpatient visit [] Follow-up visit [] Physician referral [] Code/Alert [XX] Routine visit [] Staff referral [] Actively dying [XX] Patient sleeping [] Family support [] [] Out of room [] Palliative care [] [] Receiving care in room [] Pre-surgical visit [] Trauma [] Long length of stay [] ICU visit [] Other: Relational/Emotional Strength [] Patient feels connected with others/family/visitors/staff [] Distress [] Loneliness/isolation [] Abandonment Spirituality of Patient [] Person of Namita [] Attends Buddhist of their Namita [] Believes in Prayer [] Reads Bible or Restorationist materials [] There are Spiritual issues to be addressed Hose Coupling Joiner Interventions [] Prayer [] Active listening [] Non-anxious presence [] Spiritual/emotional support [] Crisis/trauma care [] Spiritual counseling [] Bereavement support [] Provided bereavement packet [] Provided Bible/devotional materials [] Provided toy/stuffed animal, coloring book to patient or family member [] Provided Communion [] Anointing/[place] [] Salvation [] Completed spiritual assessment [] Other: Impact on Illness or Injury [] Angry [] Fearful [] Anxious [] Often cries [] Exhaustion [] Unable to work [] Unable to attend christian [] Unable to walk/stand [] Unable to read [] Unable to drive [] Unable to eat/drink [] Unable to sleep [] Unable to be with family [] Patient intubated [] Other: Summary Time spent with patient
[2020-06-03 17:26] LABS: Glucose Point of Care 169 mg/dL (70-110)
[2020-06-03 20:12] LABS: Glucose Point of Care 299 mg/dL (70-110)
[2020-06-03] MEDS: OLANZapine 5 mg ODT PO (21:54)
[2020-06-03] MEDS: gabapentin 300 mg Capsule 600 MG PO (21:55)
[2020-06-04 03:15] VITALS: BP 120/71; PULSE 58; RESP 18; TEMP 36.4; O2SAT 96
[2020-06-04] MEDS: heparin 5,000 unit/mL INJ 1 mL 5000 UNIT SUBCUT ×2 (03:48→12:17)
[2020-06-04 04:43] LABS: Basophils % 0.5 %; Eosinophils # 0.3 10^3/uL (0.0-0.8); Eosinophils % 3.7 %; Hematocrit 33.7 % (37.0-47.0); Hemoglobin 10.3 g/dL (11.5-15.3); Lymphocytes # 1.2 10^3/uL (0.8-4.8); Lymphocytes % 16.8 %; Mean Corpuscular HGB Conc 30.6 g/dL (30.0-36.0); Mean Corpuscular Hemoglobin 30.7 pg (28.0-34.0); Mean Corpuscular Volume 100.6 fL (81-99); Mean Platelet Volume 10.9 fL (7.4-10.4); Monocytes # 0.6 10^3/uL (0.2-0.9); Monocytes % 8.4 %; Neutrophils # 5.09 10^3/uL (1.8-7.7); Neutrophils % 69.4 %; Nucleated Red Blood Cells % 0 %; Platelet Count 314 10^3/cmm (130-400); Red Blood Count 3.35 10^6/uL (4.1-5.3); Red Cell Distribution Width 18.9 % (12.1-15.1); White Blood Count 7.3 10^3/uL (4.0-10.0)
[2020-06-04 04:59] LABS: Alanine Aminotransferase 8 U/L (0-33); Albumin Level 3.6 g/dL (3.5-5.2); Alkaline Phosphatase 92 IU/L (35-105); Anion Gap 13.4 (5-19); Aspartate Amino Transferase 10 U/L (0-32); Blood Urea Nitrogen 32 mg/dL (8-23); Calcium 9.3 mg/dL (8.5-10.5); Carbon Dioxide 28 mmol/L (22-29); Chloride 97 mmol/L (98-107); Globulin 3.3 g/dL (1.3-4.6); Glucose 196 mg/dL (65-115); Osmolality Calculated 292 mOsm/kg (285-295); Potassium 3.4 mmol/L (3.5-5.1); Sodium 135 mmol/L (136-145); Total Bilirubin 0.3 mg/dL (0.15-1.2); Total Protein 6.9 g/dL (6.6-8.7)
[2020-06-04] MEDS: HYDROcodone-acetaminophen 5-325 mg Tablet 1 TAB PO (05:31)
[2020-06-04] MEDS: cefTRIAXone 1,000 MG in sodium chloride 0.9% (plus) 50 ML 100 MG IV (05:32)
[2020-06-04 06:52] LABS: Glucose Point of Care 212 mg/dL (70-110)
[2020-06-04 08:00] VITALS: BP 123/70; PULSE 76; RESP 18; TEMP 36.8; O2SAT 99
[2020-06-04] MEDS: phenazopyridine 100 mg Tablet PO ×2 (09:16→12:14)
[2020-06-04] MEDS: famotidine 20 mg Tablet PO (09:17)
[2020-06-04 09:35] VITALS: BP 138/80; PULSE 80; RESP 20; O2SAT 97
[2020-06-04] MEDS: docusate sodium 100 mg Capsule PO (09:59)
[2020-06-04] MEDS: atorvastatin 40 mg Tablet 80 MG PO (10:00)
[2020-06-04] MEDS: baclofen 10 mg Tablet 20 MG PO (10:09)
[2020-06-04] MEDS: clopidogrel 75 mg Tablet PO (10:10)
[2020-06-04] MEDS: sertraline 50 mg Tablet PO (10:10)
[2020-06-04] MEDS: aspirin 81 mg EC Tablet PO (10:10)
[2020-06-04] MEDS: metoprolol tartrate 50 mg Tablet PO (10:11)
[2020-06-04] MEDS: hyDRALAzine 25 mg Tablet PO ×2 (10:11→12:14)
[2020-06-04 10:50] LABS: Glucose Point of Care 371 mg/dL (70-110)
[2020-06-04 11:18] VITALS: BP 160/80; PULSE 73; RESP 20; TEMP 34.9; O2SAT 96
[2020-06-04 11:38] VITALS: BP 160/80; PULSE 73; RESP 20; TEMP 34.9; O2SAT 96
--- NOTE | 2020-06-04 12:02 | PC.SOCIAL ---
*IMM UPDATE* Gave pt IMM update. Provided copy of pg 2. @ 9:26am Initialed, dated, timed and placed in chart.
[2020-06-04] MEDS: amlodipine 5 mg Tablet 10 MG PO (12:14)
--- NOTE | 2020-06-04 12:15 | P.DS_ITS ---
Discharge Providers Date of Admission: 06/01/20 15:24 Date of Discharge: June 04, 2020 Attending Provider at Admission: Hattie Simon MD Attending Provider at Discharge: Sherif Barber MD Primary Care Provider: Daniel Mae Diagnoses at Discharge Discharge Diagnosis (1) Cerebrovascular accident: Status: Acute Permanent problem details: Resolved Qualifiers: CVA mechanism: unspecified Qualified Code(s): I63.9 - Cerebral infarc tion, unspecified (2) Acute cystitis: Status: Resolved Qualifiers: Hematuria presence: without hematuria Qualified Code(s): N30.00 - Acute cystitis without hematuria (3) Acute kidney injury superimposed on chronic kidney disease: Status: Resolved Reason for Visit Reason for Visit: poss stroke 42806 I63.9 Hospital Course Hospital Course 74 year old female who has previous history of CVA status post left-sided CEA, type 2 diabetes chocolate foot presented today after experiencing numbness of right arm and word finding difficulty. She was admitted for the management of Acute ischemic stroke/TIA. She was out of TPA window period. CTA head and neck reveals 80% stenosis of right ICA, status post left CEA,EKG showing sinus rhythm,MRI head from 06/01 with no evidence of restricted diffusion to suggest acute ischemia. Chronic lacunar infarct in the left thalamus and small vessel changes in the yolanda noted.CT head wo con:No acute intracranial abnormality. She was started on Aspirin,plavix, and high dose statin.She will continue to follow Dr. Palacios for further management. She was also ,managed for UTI and was on Ceftriaxone 1g iv q24h for 4 days will discharge her on additional days of levofloxacin. She is being discharged to home with Home health with PT. Physical Exam Narrative: EXAM NARRATIVE: Awake, alert and oriented, no acute distress CVS: S1S2 N RS: CTA B/L Abd: Soft, nt/nd , bs+ BACKEND PYTHON DEVELOPER: no focal neuro deficits Urinary Catheter Management^: Rodriguez: Cath Placed During This Visit: yes, but has since been removed by the nurse Reason for Continuing Indwelling Catheter: Other Urinary Catheter Date of Insertion: 06/01/20 Urinary Catheter Time of Insertion: 03:15 Date Urinary Catheter Removed: 06/02/20 Time Urinary Catheter Discontinued: 11:15 Discharge Data Data Completed and Pending: Completed Studies During Hospitalization Category Date Time Status CT angio headneck * [id number] Urge nt Cat Scan 05/31/20 03:[address] head wo con* 7 [id number] Urgent Cat Scan 05/31/20 02:54 Completed XR chest 1V lindsey ble [id number] Urgent Exams 05/31/20 02:54 Completed MR head wo con* 7 0551 Routine MRI 06/01/20 12:15 Completed Labs from last 24 hours 06/04/20 06/04/20 06/04/20 10:45 06:13 04:34 WBC RBC Hgb Hct MCV MCH MCHC RDW Plt Count MPV Neut % (Auto) Lymph % (Auto) [place] % (Auto) Eos % (Auto) Baso % (Auto) Neut # (Auto) Lymph # (Auto) [place] # (Auto) Eos # (Auto) Baso # (Auto) Nucleated RBC % (a uto) Nucleated RBCs # Sodium 135 L Potassium 3.4 L Chloride 97 L Carbon Dioxide 28 Anion Gap 13.4 BUN 32 H Creatinine 1.4 H GFR Calculation Not Reportable Glucose 196 H POC Glucose 371 H 212 H Calculated Osmolal ity 292 Calcium 9.3 Total Bilirubin 0.3 AST 10 ALT 8 Alkaline Phosphata se 92 Total Protein 6.9 Albumin 3.6 Globulin 3.3 06/04/20 06/03/20 06/03/20 04:34 20:05 17:16 WBC 7.3 RBC 3.35 L Hgb 10.3 L Hct 33.7 L MCV 100.6 H MCH 30.7 MCHC 30.6 RDW 18.9 H Plt Count 314 MPV 10.9 H Neut % (Auto) 69.4 Lymph % (Auto) 16.8 [place] % (Auto) 8.4 Eos % (Auto) 3.7 Baso % (Auto) 0.5 Neut # (Auto) 5.09 Lymph # (Auto) 1.2 [place] # (Auto) 0.6 Eos # (Auto) 0.3 Baso # (Auto) 0.0 Nucleated RBC % (a uto) 0 Nucleated RBCs # 0.0 Sodium Potassium Chloride Carbon Dioxide Anion Gap BUN Creatinine GFR Calculation Glucose POC Glucose 299 H 169 H Calculated Osmolal ity Calcium Total Bilirubin AST ALT Alkaline Phosphata se Total Protein Albumin Globulin Vitals: Last Vital Signs Temp 94.8 F L 06/04/20 11:38 Pulse 73 06/04/20 11:38 Resp 20 H 06/04/20 11:38 BP 160/80 06/04/20 11:38 Pulse Ox 96 06/04/20 11:38 Discharge Plan Discharge Patient Disposition: Home Health Service Condition: Stable Prescriptions: New levofloxacin 500 mg tablet 500 mg PO DAILY 3 Days RF: 0 Continued metformin 500 mg Tablet 500 mg PO BID RF: 0 hydroxyurea 500 mg Capsule 500 mg PO DAILY RF: 0 Vitamin B-12 2,500 mcg Tablet, Sublingual 2,500 mcg SUBLINGUAL DAILY RF: 0 hydrocodone-acetaminophen 5-325 mg Tablet 1 tab PO BID PRN (Reason: pain) RF: 0 Plavix 75 mg Tablet 75 mg PO DAILY RF: 0 acetaminophen 500 mg Tablet 500 mg PO Q6H PRN (Reason: pain) RF: 0 Pepcid 20 mg Tablet 20 mg PO DAILY RF: 0 baclofen 10 mg Tablet 10 mg PO TID RF: 0 Benadryl 25 mg Capsule 25 mg PO Q6H PRN (Reason: Allergy Symptoms) RF: 0 metoprolol tartrate 50 mg Tablet 50 mg PO BID RF: 0 ibuprofen 200 mg Tablet 200 mg PO Q6H PRN (Reason: Pain) RF: 0 docusate sodium 100 mg Capsule 100 mg PO DAILY RF: 0 gabapentin 300 mg Capsule 300 mg PO BID RF: 0 sertraline 50 mg Tablet 50 mg PO DAILY RF: 0 Acidophilus Tablet,Chewable 1 tab PO DAILY RF: 0 Changed amlodipine 5 mg Tablet 10 mg PO DAILY Qty: 0 RF: 0 Discharge Orders: Discharge Order (Routine); Ordered 06/04/20 Ordered By: Sherif Barber Referrals: [facility] ([facility]) [Outside] Cadence Palacios MD [Physician] - 2 weeks (THIS APPOINTMENT HAS BEEN SCHEDULED FOR AFTER HOSPITAL FOLLOW UP WITH [facility] [phone] FOR FOLLOWING DATE OF 2020 AT 10:15 AM WILL SEE YUSEF LI APN NURSE PRACTICTIONER.) Daniel Mae [Primary Care Provider] - 4-7 days (THIS APPOINTMENT HAS BEEN SCHEDULED FOR AFTER HOSPITAL FOLLOW UP WITH ,[facility] [phone] FOR THE DATE OF Thursday AT 10:40 AM ) Discharge Diet: Diabetic Discharge Activity: Increase activity as tolerated Discharge Attestations Time Spent in Discharge Care*: greater than 30 min Specific Discharge Activities: educating and/or supporting family/caregiver, discussing with telehealth case manager/social workers/dc planners, documenting/other paperwork and evaluating patient/reviewing data Status at Discharge: Cognitive status at discharge: cognitively intact , Behavioral status at discharge: cooperative , Functional status at discharge: independent ambulation Overall status at discharge: patient is back to baseline Quality Metrics Clinical Quality Measures During this hospital stay, did patient experience: Stroke Contraindication to Antithrombotic: Other Contraindication to Anticoagulation: Other Contraindication to Statin: Statin prescribed Coding Level of Care Code Acute Research Environmental Scientist for Cheri Fwd Diagnoses Cerebrovascular accident I63.9 CVA mechanism: unspecified Acute cystitis N30.00 Hematuria presence: without hematuria Acute kidney injury superimposed on chronic kidney disease N17.9; N18.9
[2020-06-04 14:10] VITALS: BP 160/80; PULSE 73; RESP 20; TEMP 34.9; O2SAT 96
--- NOTE | 2020-06-04 14:12 | PC.NURSE ---
Patient was educated on discharge instructions, follow up appointments, and discharge medications. Change in Amlodipine was discussed with the patient and the need to finish all antibiotics. Patient verbalized understanding. All meds were returned to patient from [facility]. Patient's IV's were removed from bilateral wrists and patient was wheeled out via wheelchair to private vehicle with belongings and discharge scripts.
--- NOTE | 2020-06-07 15:02 | PM.DCS ---
Discharge Providers Date of Admission: 06/01/20 15:24 Date of Discharge: June 07, 2020 Attending Provider at Admission: Hattie Simon MD Attending Provider at Discharge: Sherif Barber MD Primary Care Provider: Daniel Mae Diagnoses at Discharge Discharge Diagnosis (1) Cerebrovascular accident: Status: Acute Permanent problem details: Patient with ongoing aphasia Qualifiers: CVA mechanism: unspecified Qualified Code(s): I63.9 - Cerebral infarction, unspecified (2) Acute cystitis: Status: Resolved Qualifiers: Hematuria presence: without hematuria Qualified Code(s): N30.00 - Acute cystitis without hematuria (3) Acute kidney injury superimposed on chronic kidney disease: Status: Acute Reason for Visit Reason for Visit: poss stroke 72995 I63.9 Hospital Course Hospital Course 74 year old female who has previous history of CVA status post left-sided CEA, type 2 diabetes chocolate foot presented today after experiencing numbness of right arm and word finding difficulty. She was recently admitted for the management of Acute ischemic stroke/TIA. She was out of TPA window period. CTA head and neck reveals 80% stenosis of right ICA, status post left CEA,EKG showing sinus rhythm,MRI head from 06/01 with no evidence of restricted diffusion to suggest acute ischemia.Chronic lacunar infarct in the left thalamus and small vessel changes in the yolanda noted.CT head wo con:No acute intracranial abnormality. She was started on Aspirin,plavix, and high dose statin.She will continue to follow Dr. Palacios for further management.She was also ,managed for UTI and was on Ceftriaxone 1g iv q24h for 4 days was discharged on additional days of levofloxacin.Post discharge she was readmitted next day as the family felt she was more confused.Repeat C.T head without contrast was done during this admission which failed to show any acute intracranial pathology.Chest x-ray is unremarkable.Post admission she was continued to be managed for UTI.She was continued on Levofloxacin as well on I.V hydration for SHANA.SHANA was improving and her confusion had resolved at the time of discharge.She was AO*3 No new focal neurological deficit, speech was good, no difficulty swallowing.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 She participated with PT and was discharged home in stable condition with H/H.She will continue to follow her PCP as well as neurologist as outpatient. Physical Exam Narrative: EXAM NARRATIVE: EXAM NARRATIVE: EXAM NARRATIVE: Awake, alert and oriented, no acute distress CVS: S1S2 N RS: CTA B/L Abd: Soft, nt/nd , bs+ COCOA ROOM OPERATOR: no focal neuro deficits Urinary Catheter Management^: Rodriguez: Cath Placed During This Visit: yes, but has since been removed by the nurse Reason for Continuing Indwelling Catheter: Other Urinary Catheter Date of Insertion: 06/01/20 Urinary Catheter Time of Insertion: 03:15 Date Urinary Catheter Removed: 06/02/20 Time Urinary Catheter Discontinued: 11:15 Discharge Data Data Completed and Pending: Completed Studies During Hospitalization Category Date Time Status CT angio headneck * [id number] Urge nt Cat Scan 05/31/20 03:[address] head wo con* 7 0450 Urgent Cat Scan 05/31/20 02:54 Completed XR chest 1V lindsey ble [id number] Urgent Exams 05/31/20 02:54 Completed MR head wo con* 7 0551 Routine MRI 06/01/20 12:15 Completed Vitals: Last Vital Signs Temp 94.8 F L 06/04/20 14:10 Pulse 73 06/04/20 14:10 Resp 20 H 06/04/20 14:10 BP 160/80 06/04/20 14:10 Pulse Ox 96 06/04/20 14:10 Discharge Plan Discharge Patient Disposition: Home Health Service Condition: Stable Prescriptions: Continued metformin 500 mg Tablet 500 mg PO BID RF: 0 hydroxyurea 500 mg Capsule 500 mg PO DAILY RF: 0 cyanocobalamin (vitamin B-12) [Vitamin B-12] 2,500 mcg Tablet, Sublingual 2,500 mcg SUBLINGUAL DAILY RF: 0 hydrocodone-acetaminophen 5-325 mg Tablet 1 tab PO BID PRN (Reason: pain) RF: 0 clopidogrel [Plavix] 75 mg Tablet 75 mg PO DAILY RF: 0 acetaminophen 500 mg Tablet 500 mg PO Q6H PRN (Reason: pain) RF: 0 famotidine [Pepcid] 20 mg Tablet 20 mg PO DAILY RF: 0 baclofen 10 mg Tablet 10 mg PO TID RF: 0 diphenhydramine HCl [Benadryl] 25 mg Capsule 25 mg PO Q6H PRN (Reason: Allergy Symptoms) RF: 0 metoprolol tartrate 50 mg Tablet 50 mg PO BID RF: 0 ibuprofen 200 mg Tablet 200 mg PO Q6H PRN (Reason: Pain) RF: 0 docusate sodium 100 mg Capsule 100 mg PO DAILY RF: 0 gabapentin 300 mg Capsule 300 mg PO BID RF: 0 sertraline 50 mg Tablet 50 mg PO DAILY RF: 0 Acidophilus Tablet,Chewable 1 tab PO DAILY RF: 0 Changed amlodipine 5 mg Tablet 10 mg PO DAILY Qty: 0 RF: 0 No Action simvastatin 20 mg tablet 20 mg PO DAILY RF: 0 Tresiba FlexTouch U-200 200 unit/mL (3 mL) insulin pen 80 unit SUBCUT DAILY RF: 0 Discharge Orders: Discharge Order (Routine); Ordered 06/04/20 Ordered By: Sherif Barber Referrals: [facility] [place] [facility] ([facility]) [Outside] Cadence Palacios MD [Physician] - 06/11/20 10:15 am (THIS APPOINTMENT HAS BEEN SCHEDULED FOR AFTER HOSPITAL FOLLOW UP WITH [facility] [phone] FOR FOLLOWING DATE OF 2020 AT 10:15 AM WILL SEE YUSEF LI APN NURSE PRACTICTIONER.) Daniel Mae [Primary Care Provider] - 06/05/20 10:40 am (THIS APPOINTMENT HAS BEEN SCHEDULED FOR AFTER HOSPITAL FOLLOW UP WITH ,[facility] [phone] FOR THE DATE OF Thursday AT 10:40 AM ) Discharge Diet: Diabetic Discharge Activity: Increase activity as tolerated Patient Instructions: Levofloxacin (By mouth), Acute Kidney Injury (DC), Aspiration Pneumonia (DC), Sepsis (DC), Ischemic Stroke (DC), Stroke Stoplight Discharge Attestations Time Spent in Discharge Care*: less than 30 min Specific Discharge Activities: educating patient, educating and/or supporting family/caregiver, discussing with case consultant/social workers/dc planners, documenting/other paperwork and evaluating patient/reviewing data Status at Discharge: Cognitive status at discharge: cognitively intact, Behavioral status at discharge: cooperative, Functional status at discharge: independent ambulation Overall status at discharge: patient is back to baseline Quality Metrics Clinical Quality Measures During this hospital stay, did patient experience: None Coding Level of Care Code Acute Reinsurance Clerk for g Fwd Diagnoses Cerebrovascular accident I63.9 CVA mechanism: unspecified Acute cystitis N30.00 Hematuria presence: without hematuria Acute kidney injury superimposed on chronic kidney disease N17.9; N18.9
== END 2020-06-04 14:17 | disposition home health service (06) | DRG 64 ==
LOC: ER 04:03 → ICU 08:20 → MEDSURG 06-01 14:16
PROVIDERS: Family Medicine; Student in an Organized Health Care Education/Training Program; Admitting Provider Internal Medicine; Emergency Provider Emergency Medicine; PCP Family Medicine; Visit Provider Internal Medicine
DX: I63.9 Cerebral infarction, unspecified (principal); G93.41 Metabolic encephalopathy; J96.01 Acute respiratory failure with hypoxia; J69.0 Pneumonitis due to inhalation of food and vomit; N30.00 Acute cystitis without hematuria; N17.9 Acute kidney failure, unspecified; E11.22 Type 2 diabetes mellitus with diabetic chronic kidney disease; R47.01 Aphasia; Z79.02 Long term (current) use of antithrombotics/antiplatelets; Z79.84 Long term (current) use of oral hypoglycemic drugs; E11.649 Type 2 diabetes mellitus with hypoglycemia without coma; I12.9 Hypertensive chronic kidney disease with stage 1 through stage 4 chronic kidney disease, or unspecified chronic kidney disease; B96.20 Unspecified Escherichia coli [E. coli] as the cause of diseases classified elsewhere; R29.702 NIHSS score 2; I25.10 Atherosclerotic heart disease of native coronary artery without angina pectoris; Z87.11 Personal history of peptic ulcer disease; N18.9 Chronic kidney disease, unspecified
CPT/HCPCS: 12345; 36415; 36416; 36600; 51701; 51702; 51798; 70450; 70496; 70498; 70551; 71045; 80053; 80306; 81001; 82803; 82962; 83036; 85025; 85610; 87077; 87086; 87186; 87426; 93005; 94660; 96372; 97110; 97116; 97161; 97530; 99283; 99291; G0378; J0360; J0696; J1630; J1644; J1815; J2060; J2310; J3480; J3490; Q9967

== ENCOUNTER 2020-06-05 19:07 | Observation (INO) | payer MEDICARE, SELFPAY ==
[2020-06-05 19:14] VITALS: BP 138/53; PULSE 81; RESP 17; O2SAT 94; BMI 33.6
--- NOTE | 2020-06-05 20:07 | XR_ITS ---
WS: [id number] Portable AP upright chest, 06/05/2020 Clinical Data: AMS Comparison: Portable chest, 05/31/2020. Findings: No nodules, masses or effusions are seen. The heart is enlarged. The pulmonary vascularity is not increased. No pneumonia or pneumothorax is seen. The aortic arch and descending aorta show melvin cification and tortuosity. XR/XR chest 1V portable [id number] Impression: Cardiomegaly and atherosclerosis.
--- NOTE | 2020-06-05 20:07 | ECG_ITS ---
[facility] Test Date: 2020-06-05 Pat Name: Katy Noble Department: Room: Gender: Female Dental Appliance Mechanic: : [id number] Requested By: Sherman Chino I Order Number: [id number] Jackson MD: Herbert Brown M.D. Measurements Intervals [place] Rate: 62 P: 26 OR: 197 QRS: -12 QRSD: 96 T: 59 QT: 433 QTc: 441 Interpretive Statements SINUS RHYTHM POSSIBLE LEFT ATRIAL ENLARGEMENT [-0.1mV P WAVE IN V1/V2] POSSIBLE LEFT VENTRICULAR HYPERTROPHY [VOLTAGE CRITERIA PLUS LAE OR QRS WIDENING] POSSIBLE ANTERIOR MYOCARDIAL INFARCTION , OF INDETERMINATE AGE [30 ms Q WAVE IN V3/V4, OR R < 0.2 mV IN V4] Compared to ECG 05/31/2020 03:18:51 Myocardial infarct finding now present ST (T wave) deviation no longer present Electronically Signed On 06-06-2020 20:00:21 EXPANDED FUNCTION DENTAL ASSISTANT by Herbert Brown M.D. [id number]
--- NOTE | 2020-06-05 20:07 | CTR_ITS ---
PROCEDURE INFORMATION: Exam: CT Head Without Contrast Exam date and time: 06/05/2020 8:09 PM Age: 74 years old Clinical indication: Altered mental status/memory loss; Patient HX: PT states she had stroke on Thursday; Additional info: Symptoms of acute stroke TECHNIQUE: Imaging protocol: Computed tomography of the head without contrast. Radiation optimization: All CT scans at this facility use at least one of these dose optimization techniques: automated exposure control; mA and/or kV adjustment per patient size (includes targeted exams where dose is matched to clinical indication); or iterative reconstruction. COMPARISON: CT head wo con* [id number] 05/31/2020 2:50 AM RADIATION DOSE METRICS: Total DLP (mGy-cm): 601.33 FINDINGS: Brain: Stable one or more left chronic lacunar thalamic infarcts. Cerebral ventricles: No ventriculomegaly. Bones/joints: Unremarkable. No acute fracture. Paranasal sinuses: Visualized sinuses are unremarkable. No fluid levels. Mastoid air cells: Visualized mastoid air cells are well aerated. Vasculature: Severe calcified intracranial atherosclerotic vessel disease. Soft tissues: Unremarkable. CT/CT head wo con* [id number] IMPRESSION: No acute intracranial findings. Radiation Dose CTDIVOL = (mGy): DLP = 601.33 (mGy-cm)
--- NOTE | 2020-06-05 20:14 | PC.PHAR ---
PT UNABLE TO CONFIRM MEDICATIONS DUE TO AMS. I CALLED HER NEXT OF KIN TO SEE IF ANYONE HELPED HER AT HOME WITH THEM. NO ONE DOES. I AM DOING HER MEDICATION LIST USING HER MEDICATION HISTORY AND PHARMACY LIST.
[2020-06-05 20:49] LABS: Basophils % 0.5 %; Eosinophils # 0.2 10^3/uL (0.0-0.8); Eosinophils % 2.3 %; Hemoglobin 9.6 g/dL (11.5-15.3); Lymphocytes # 1.5 10^3/uL (0.8-4.8); Lymphocytes % 17.4 %; Mean Corpuscular Hemoglobin 30.4 pg (28.0-34.0); Mean Corpuscular Volume 101.3 fL (81-99); Mean Platelet Volume 11.9 fL (7.4-10.4); Monocytes # 0.8 10^3/uL (0.2-0.9); Monocytes % 9.5 %; Neutrophils # 5.86 10^3/uL (1.8-7.7); Neutrophils % 69.8 %; Nucleated Red Blood Cells % 0 %; Platelet Count 346 10^3/cmm (130-400); Red Blood Count 3.16 10^6/uL (4.1-5.3); Red Cell Distribution Width 18.9 % (12.1-15.1); White Blood Count 8.4 10^3/uL (4.0-10.0)
[2020-06-05 20:57] LABS: INR 0.99 (0.8-1.2)
[2020-06-05 20:59] LABS: Partial Thromboplastin Time 32.3 SECONDS (23.9-36.7)
[2020-06-05 21:03] LABS: Alanine Aminotransferase 12 U/L (0-33); Alkaline Phosphatase 99 IU/L (35-105); Anion Gap 19.3 (5-19); Aspartate Amino Transferase 17 U/L (0-32); Blood Urea Nitrogen 42 mg/dL (8-23); Calcium 9.2 mg/dL (8.5-10.5); Carbon Dioxide 26 mmol/L (22-29); Chloride 94 mmol/L (98-107); Globulin 2.9 g/dL (1.3-4.6); Glucose 469 mg/dL (65-115); Osmolality Calculated 311 mOsm/kg (285-295); Potassium 4.3 mmol/L (3.5-5.1); Sodium 135 mmol/L (136-145); Total Bilirubin 0.2 mg/dL (0.15-1.2); Total Protein 6.9 g/dL (6.6-8.7)
[2020-06-05 21:54] VITALS: BP 108/45; PULSE 57; RESP 15; O2SAT 94
--- NOTE | 2020-06-05 22:00 | W.ED.AMS ---
HPI - Altered Mental Status General: Chief Complaint: Altered Mental Status Stated Complaint: AMS Time Seen by Provider: 06/05/20 19:10 Source: patient and EMS Mode of arrival: EMS Limitations: altered mental status History of Present Illness: HPI narrative: Patient is a 75-year-old female with a history of diabetes mellitus, who was discharged yesterday from this facility and at that time she was managed as a case of a CVA. She was brought in today by EMS with concerns of confusion and altered mental status. The patient was able to answer a few questions but then goes around in a circular pattern repeating the same thing over and over again. She also has some inappropriate answers to some of the questions. She appears to have some expressive aphasia as well as may be slurred speech. MD complaint: altered mental status and confusion Review of Systems General: Reports: ROS unobtainable due to mental status (and aphasia) [facility] ED PFSH: Medical History Acute cystitis Acute kidney injury superimposed on chronic kidney disease Aspiration pneumonitis Cerebrovascular accident Patient with ongoing aphasia Charcot foot due to diabetes mellitus Chronic kidney disease Coronary artery disease Diabetes Diabetic foot ulcer History of hyperbaric oxygen therapy Hypertension Osteomyelitis PUD (peptic ulcer disease) Sepsis Stroke Surgical History S/P carotid endarterectomy S/P PICC central line placement Patient had tunneled left subclavian central line for IV antibiotics for osteomyelitis which was removed by Dr. Zelaya 2016 Family History Other Family history non-contributory Social History Smoking and tobacco status: never smoked Alcohol intake: never Household members: family Housing: House Physical Exam Const: COMMON NORMALS: no acute distress, average body habitus, no limitations, healthy appearing, alert and well nourished ORIENTATION/CONSCIOUSNESS: Yes oriented to person, Yes oriented to place and Yes oriented to time HENMT: COMMON NORMALS: normocephalic, atraumatic and moist oral mucous membranes HEAD & SCALP: normocephalic and atraumatic Eye: COMMON NORMALS: Equal, round and reactive pupils present, EOMs intact bilaterally, conjunctivae normal and no scleral icterus CONJUNCTIVA: Yes conjunctivae normal PUPIL: Yes Equal, round and reactive pupils present Neck/C-Spine: COMMON NORMALS: no meningeal signs and no JVD Resp: COMMON NORMALS: normal respiratory effort, No retractions, No use of accessory muscles, clear to auscultation bilaterally and percussion normal AUSCULTATION: clear to auscultation bilaterally PERCUSSION: percussion normal Cardio: COMMON NORMALS: no JVD, regular rate, regular rhythm, S1 normal heart sound present, S2 normal heart sound present, No gallops present (Cardio), No clicks present (Cardio), No murmurs present (Cardio), No rub (Cardio) and Peripheral pulses 2+ throughout RATE: regular rate RHYTHM: regular rhythm HEART SOUNDS: S1 normal heart sound present and S2 normal heart sound present PERIPHERAL PULSES: Peripheral pulses 2+ throughout GI: COMMON NORMALS: Normal to inspection, nondistended, normoactive bowel sounds present, Soft to palpation, non-tender, No hepatosplenomegaly present, no masses and no bruits PALPATION: Yes Soft to palpation and Yes No hepatosplenomegaly present Extremity: COMMON NORMALS: normal to inspection, full ROM, capillary refill normal, no calf tenderness and no pedal edema Neuro: SENSORIUM/ORIENTATION: Yes alert, Yes oriented to person, Yes oriented to place and Yes oriented to time MENINGEAL SIGNS: Yes no meningeal signs SPEECH: abnormal speech Details: garbled and slurred and expressive aphasia MOTOR EXAM: 5/5 motor strength present throughout Skin: COMMON NORMALS: no rashes or lesions noted, no wounds, turgor normal, no jaundice, no petechiae and no mottling GENERAL SKIN EXAM: no rashes or lesions noted and turgor normal Course Consultations: Consultation #1: Discussed the patient with Dr. Edwards, hospitalist and he kindly accepted the patient. Time: 22:48 Vital Signs: Vital signs: Vital Signs Temperature 99.5 F 06/07/20 11:25 Pulse Rate 65 06/07/20 11:25 Respiratory Rate 16 06/07/20 11:25 Blood Pressure 159/84 06/07/20 11:25 Pulse Oximetry 97 06/07/20 11:25 MDM - Altered Mental Status MDM Narrative: Medical decision making narrative: 74-year-old female patient with a history of diabetes mellitus, hypertension, presented to the emergency department with altered mental status. She does seem to have difficulty speaking with expressive aphasia. She was discharged from this facility yesterday and was managed as a case of CVA. Evaluation in the emergency department shows she has a UTI and this may be contributing to her symptoms. She is admitted to the hospitalist service for further evaluation and management. Medical Records: Attestation: I reviewed the patient's medical records. Lab Data: Attestation: I reviewed the patient's lab results. Labs: Lab Results 06/05/20 06/05/20 06/05/20 Range/Units 18:30 18:30 18:30 WBC 8.4 (4.0-10.0) 10^3/ uL RBC 3.16 L (4.1-5.3) 10^6/u L Hgb 9.6 L (11.5-15.3) g/dL Hct 32.0 L (37.0-47.0) % MCV 101.3 H (81-99) fL MCH 30.4 (28.0-34.0) pg MCHC 30.0 (30.0-36.0) g/dL RDW 18.9 H (12.1-15.1) % Plt Count 346 (130-400) 10^3/c mm MPV 11.9 H (7.4-10.4) fL Neut % (Auto) 69.8 % Lymph % (Auto) 17.4 % [place] % (Auto) 9.5 % Eos % (Auto) 2.3 % Baso % (Auto) 0.5 % Neut # (Auto) 5.86 (1.8-7.7) 10^3/u L Lymph # (Auto) 1.5 (0.8-4.8) 10^3/u L [place]imer # (Auto) 0.8 (0.2-0.9) 10^3/u L Eos # (Auto) 0.2 (0.0-0.8) 10^3/u L Baso # (Auto) 0.0 (0.0-0.1) 10^3/u L Nucleated RBC % (a uto) 0 % Nucleated RBCs # 0.0 /100WBC PT 13.40 (12.1-14.9) SECO NDS INR 0.99 (0.8-1.2) APTT 32.3 (23.9-36.7) SECO NDS Sodium 135 L (136-145) mmol/L Potassium 4.3 (3.5-5.1) mmol/L Chloride 94 L (98-107) mmol/L Carbon Dioxide 26 (22-29) mmol/L Anion Gap 19.3 H (5-19) BUN 42 H (8-23) mg/dL Creatinine 2.1 H (0.5-0.9) mg/dL GFR Calculation Not Reportable Glucose 469 H (65-115) mg/dL Calculated Osmolal ity 311 H (285-295) mOsm/k g Lactate (0.5-2.2) mmol/L Calcium 9.2 (8.5-10.5) mg/dL Total Bilirubin 0.2 (0.15-1.2) mg/dL AST 17 (0-32) U/L ALT 12 (0-33) U/L Alkaline Phosphata se 99 (35-105) IU/L Total Protein 6.9 (6.6-8.7) g/dL Albumin 4.0 (3.5-5.2) g/dL Globulin 2.9 (1.3-4.6) g/dL Urine Color (Yellow) Urine Appearance (CLEAR) Urine pH (5-7) Ur Specific Gravit y (1.005-1.030) Urine Protein (Negative) Urine Glucose (UA) (Normal) Urine Ketones (Negative) Urine Blood (Negative) Urine Nitrate (Negative) Urine Bilirubin (Negative) Urine Urobilinogen (Negative) mg/dL Ur Leukocyte Delmy ase (Negative) Urine RBC (0-2) /hpf Urine WBC (0-5) /hpf Ur Squamous Epith Cells (0-5) /hpf Ur Transition Epit h Cell /hpf Ur Renal Epithelia l Cell /hpf Amorphous Sediment /hpf Urine Bacteria (NONE) /hpf Hyaline Casts /lpf Urine Opiates Scre en (Negative) ng/mL Ur Barbiturates Sc reen (Negative) ng/mL Ur Phencyclidine S crn (Negative) ng/mL Ur Amphetamines Sc reen (Negative) ng/mL U Benzodiazepines Scrn (Negative) ng/mL Urine Cocaine Scre en (Negative) ng/mL U Marijuana (THC) Screen (Negative) ng/mL 06/05/20 06/05/20 06/05/20 Range/Units 22:10 22:10 22:51 WBC (4.0-10.0) 10^3/ uL RBC (4.1-5.3) 10^6/u L Hgb (11.5-15.3) g/dL Hct (37.0-47.0) % MCV (81-99) fL MCH (28.0-34.0) pg MCHC (30.0-36.0) g/dL RDW (12.1-15.1) % Plt Count (130-400) 10^3/c mm MPV (7.4-10.4) fL Neut % (Auto) % Lymph % (Auto) % Latimer % (Auto) % Eos % (Auto) % Baso % (Auto) % Neut # (Auto) (1.8-7.7) 10^3/u L Lymph # (Auto) (0.8-4.8) 10^3/u L [place]imer # (Auto) (0.2-0.9) 10^3/u L Eos # (Auto) (0.0-0.8) 10^3/u L Baso # (Auto) (0.0-0.1) 10^3/u L Nucleated RBC % (a uto) % Nucleated RBCs # /100WBC PT (12.1-14.9) SECO NDS INR (0.8-1.2) APTT (23.9-36.7) SECO NDS Sodium (136-145) mmol/L Potassium (3.5-5.1) mmol/L Chloride (98-107) mmol/L Carbon Dioxide (22-29) mmol/L Anion Gap (5-19) BUN (8-23) mg/dL Creatinine (0.5-0.9) mg/dL GFR Calculation Glucose (65-115) mg/dL Calculated Osmolal ity (285-295) mOsm/k g Lactate 1.3 (0.5-2.2) mmol/L Calcium (8.5-10.5) mg/dL Total Bilirubin (0.15-1.2) mg/dL AST (0-32) U/L ALT (0-33) U/L Alkaline Phosphata se (35-105) IU/L Total Protein (6.6-8.7) g/dL Albumin (3.5-5.2) g/dL Globulin (1.3-4.6) g/dL Urine Color [place] (Yellow) Urine Appearance Hazy A (CLEAR) Urine pH 5 (5-7) Ur Specific Gravit y 1.015 (1.005-1.030) Urine Protein Trace (Negative) Urine Glucose (UA) 4+ H (Normal) Urine Ketones Negative (Negative) Urine Blood Neg (Negative) Urine Nitrate Negative (Negative) Urine Bilirubin Neg (Negative) Urine Urobilinogen Norm (Negative) mg/dL Ur Leukocyte Delmy ase Negative (Negative) Urine RBC None (0-2) /hpf Urine WBC None (0-5) /hpf Ur Squamous Epith Cells None (0-5) /hpf Ur Transition Epit h Cell None /hpf Ur Renal Epithelia l Cell N /hpf Amorphous Sediment 1+ /hpf Urine Bacteria Trace (NONE) /hpf Hyaline Casts 0-4 H /lpf Urine Opiates Scre en Positive H (Negative) ng/mL Ur Barbiturates Sc reen Negative (Negative) ng/mL Ur Phencyclidine S crn Negative (Negative) ng/mL Ur Amphetamines Sc reen Negative (Negative) ng/mL U Benzodiazepines Scrn Negative (Negative) ng/mL Urine Cocaine Scre en Negative (Negative) ng/mL U Marijuana (THC) Screen Negative (Negative) ng/mL Imaging Data^: CT Head: Attestation: I personally reviewed and interpreted this imaging study as follows: Radiologist's impression: [address] [address] [address] Scan Report Signed Patient: Katy Noble #: [id number] : 8Acct#:[id number] Age/Sex: 74 / FADM Date: 06/05/20 Loc: ERRoom/Bed: Attending Dr: Ordering Provider/Ordering MD: Sherman Chino MD, [facility] [place] Date of Service: 06/05/20 Procedure(s): CT head wo con* [id number] Accession Number(s): [id number] Report Number: [id number] PROCEDURE INFORMATION: Exam: CT Head Without Contrast Exam date and time: 06/05/2020 8:09 PM Age: 74 years old Clinical indication: Altered mental status/memory loss; Patient HX: PT states she had stroke on Thursday; Additional info: Symptoms of acute stroke TECHNIQUE: Imaging protocol: Computed tomography of the head without contrast. Radiation optimization: All CT scans at this facility use at least one of these dose optimization techniques: automated exposure control; mA and/or kV adjustment per patient size (includes targeted exams where dose is matched to clinical indication); or iterative reconstruction. COMPARISON: CT head wo con* [id number] 05/31/2020 2:50 AM RADIATION DOSE METRICS: Total DLP (mGy-cm): 601.33 FINDINGS: Brain: Stable one or more left chronic lacunar thalamic infarcts. Cerebral ventricles: No ventriculomegaly. Bones/joints: Unremarkable. No acute fracture. Paranasal sinuses: Visualized sinuses are unremarkable. No fluid levels. Mastoid air cells: Visualized mastoid air cells are well aerated. Vasculature: Severe calcified intracranial atherosclerotic vessel disease. Soft tissues: Unremarkable. CT/CT head wo con* [id number] IMPRESSION: No acute intracranial findings. Radiation Dose CTDIVOL = (mGy): DLP = 601.33 (mGy-cm) Dictated By:Dylon Lyn MD Signed By:Dylon Lyn MDSigned Date/Time:06/05/202039 DD/ 38 CXR: Attestation: I personally reviewed and interpreted this imaging study as follows: Radiologist's impression: [address] [address] XRay Report Signed Patient: Katy Noble #: [id number] : 8Acct#:[id number] Age/Sex: 74 / FADM Date: 06/05/20 Loc: [facility]/Bed: 250-[address]: Sherif Barber MD Ordering Provider/Ordering MD: Sherman Chino MD, [facility] [place] Date of Service: 06/05/20 Procedure(s): XR chest 1V portable [id number] Accession Number(s): [id number] Report Number: [id number] WS: [id number] Portable AP upright chest, 06/05/2020 Clinical Data: AMS Comparison: Portable chest, 05/31/2020. Findings: No nodules, masses or effusions are seen. The heart is enlarged. The pulmonary vascularity is not increased. No pneumonia or pneumothorax is seen. The aortic arch and descending aorta show calcification and tortuosity. XR/XR chest 1V portable [id number] Impression: Cardiomegaly and atherosclerosis. Dictated By:Debby Velazquez MD Signed By:Debby Velazquez MDSigned Date/Time:06/06/20821 DD/ 9 EKG Data^: EKG 1: Attestation: I personally reviewed and interpreted this EKG as follows: EKG interpretation date: 06/05/20 EKG interpretation time: 21:59 Prior EKG tracings: available for review Interpretation: Normal sinus rhythm. Heart rate [address] changes. Discharge Plan Discharge Patient Disposition: Admitted As Inpatient Admit Provider: Daniel Edwards Clinical Impression: Altered mental status, UTI (urinary tract infection), Acute CVA (cerebrovascular accident) Condition: Stable Discharge Orders: Discharge Order (Routine); Ordered 06/07/20 Ordered By: Sherif Barber Discharge Diet: Diabetic Discharge Activity: Resume usual activity Coding Level of Care Code ED Floor Sanding Machine Operator for Chg Fwd Exam Comprehensive
[2020-06-05 22:17] VITALS: BP 110/45; PULSE 93; RESP 29; O2SAT 100
[2020-06-05] MEDS: sodium chloride 0.9% 1,000 ML 999 ML IV (22:17)
[2020-06-05 22:39] LABS: Add Urine Microscopic? YES; Bilirubin Urine Neg (Negative); Blood Urine Neg (Negative); Glucose Urine UA 4+ (Normal); Ketones Urine Negative (Negative); Leukocyte Esterase Urine Negative (Negative); Nitrate Urine Negative (Negative); Protein Urine Trace (Negative); Specific Gravity, Urine 1.015 (1.005-1.030); Urine Appearance Hazy (CLEAR); Urine Color Orange (Yellow); Urobilinogen Urine Norm (Negative); pH Urine 5 (5-7)
[2020-06-05 22:41] LABS: Add Urine Culture? No; Amorphous Sediment Urine 1+ /hpf; Bacteria Urine TRACE /hpf; Hyaline Casts Urine 0-4 /lpf; Renal Epithelial Cells Urine N /hpf
[2020-06-05 22:45] VITALS: PULSE 79; RESP 13; O2SAT 100
[2020-06-05 23:00] VITALS: BP 185/80; PULSE 79; RESP 18; O2SAT 100
[2020-06-05 23:15] LABS: Lactate (Lactic Acid level) 1.3 mmol/L (0.5-2.2)
--- NOTE | 2020-06-05 23:21 | P.HP_ITS ---
Providers/Chief Complaint Primary Care Provider: Daniel Mae Chief Complaint: AMS History of Present Illness Katy Noble is a 74 year old female with a history of CVA, status post left CEA presents to the emergency department due to inability to find words and confusion. Patient was discharged from hospital after admission for suspected for aphasia and a suspected CVA as well as UTI. MRI of the brain done did not show any acute CVA. Patient was placed on aspirin and Plavix and discharged to continue physical therapy at home. Per report patient was brought to the emergency department because family felt she was more confused and had difficulty finding words are getting worse. Patient was awake, oriented to self and place but could not provide any history. Work-up in the ED reveal hyperglycemia and SHANA. Serum creatinine has increased compared to previous admission. Her UA did not suggest the presence of UTI. Patient was discharged from recent hospitalization with Levaquin for UTI. EKG demonstrates normal sinus rhythm. Chest x-ray is unremarkable. Patient is hospitalized for further evaluation. Review of Systems Narrative: Unable to obtain review of systems due to aphasia Medications/Allergies Home Medications Medication Instructions Recorded Confirmed Last Taken Type Acidophilus 1 tab PO DAILY 05/31/20 06/05/20 Unknown History acetaminophen 500 mg PO Q6H PRN 05/31/20 06/05/20 Unknown History baclofen 10 mg PO TID 05/31/20 06/05/20 Unknown History clopidogrel [Plavix] 75 mg PO DAILY 05/31/20 06/05/20 Unknown History cyanocobalamin (vitamin B-12) 2,500 mcg SUBLINGUAL DAILY 05/31/20 06/05/20 Unknown History [Vitamin B-12] diphenhydramine HCl [Benadryl] 25 mg PO Q6H PRN 05/31/20 06/05/20 Unknown History docusate sodium 100 mg PO DAILY 05/31/20 06/05/20 Unknown History famotidine [Pepcid] 20 mg PO DAILY 05/31/20 06/05/20 Unknown History gabapentin 300 mg PO BID 05/31/20 06/05/20 Unknown History hydrocodone-acetaminophen 1 tab PO BID PRN 05/31/20 06/05/20 Unknown History hydroxyurea 500 mg PO DAILY 05/31/20 06/05/20 Unknown History ibuprofen 200 mg PO Q6H PRN 05/31/20 06/05/20 Unknown History metformin 500 mg PO BID 05/31/20 06/05/20 Unknown History metoprolol tartrate 50 mg PO BID 05/31/20 06/05/20 Unknown History sertraline 50 mg PO DAILY 05/31/20 06/05/20 Unknown History amlodipine 10 mg PO DAILY #0 tab 06/04/20 06/05/20 Unknown Rx levofloxacin 500 mg PO DAILY 3 Days tab 06/04/20 06/05/20 Unknown Rx hydralazine See Rx Instructions .ROUTE .COMPLEX 06/05/20 06/05/20 Unknown History insulin degludec [Tresiba 80 unit SUBCUT DAILY 06/05/20 06/05/20 Unknown History FlexTouch U-200] simvastatin 20 mg PO DAILY 06/05/20 06/05/20 Unknown History Allergies Allergy/AdvReac Type Severity Reaction Status Date / Time morphine Allergy Unknown Verified 05/31/20 02:59 Sulfa (Sulfonamide Allergy Unknown Verified 05/31/20 02:59 Antibiotics) PFSH Acute PFSH: Medical History (Updated 06/05/20 @ 23:38 by Daniel Edwards MD) Acute cystitis Acute kidney injury superimposed on chronic kidney disease Aspiration pneumonitis Cerebrovascular accident Patient with ongoing aphasia Charcot foot due to diabetes mellitus Chronic kidney disease Coronary artery disease Diabetes Diabetic foot ulcer History of hyperbaric oxygen therapy Hypertension Osteomyelitis PUD (peptic ulcer disease) Sepsis Stroke Surgical History S/P carotid endarterectomy S/P PICC central line placement Patient had tunneled left subclavian central line for IV antibiotics for osteomyelitis which was removed by Dr. Zelaya 2016 Family History Other Family history non-contributory Social History Smoking and tobacco status: never smoked Alcohol intake: never Household members: family Housing: House Vitals/I&O/Wt Last Vital Signs Pulse 79 06/05/20 22:45 Resp 13 06/05/20 22:45 BP 110/45 06/05/20 22:17 Pulse Ox 100 06/05/20 22:45 Weight last 48 hrs Weight 97.522 kg Physical Exam Const: COMMON NORMALS: no acute distress and healthy appearing GENERAL APPEARANCE: cooperative and well developed ORIENTATION/CONSCIOUSNESS: Yes awake, Yes oriented to person and Yes oriented to place HENMT: COMMON NORMALS: normocephalic, moist oral mucous membranes and oropharynx normal Eye: COMMON NORMALS: Equal, round and reactive pupils present, EOMs intact bilaterally and conjunctivae normal Neck/C-Spine: COMMON NORMALS: full ROM, no lymphadenopathy and supple Lymph: LYMPHATIC: no lymphadenopathy noted Chest: COMMONS NORMALS: normal inspection of the chest Resp: COMMON NORMALS: normal respiratory effort and clear to auscultation bilaterally Cardio: COMMON NORMALS: no JVD, regular rate, regular rhythm, S1 normal heart sound present and S2 normal heart sound present GI: COMMON NORMALS: Normal to inspection, nondistended, normoactive bowel sounds present, Soft to palpation, non-tender and No hepatosplenomegaly present : COMMON NORMALS: Yes no CVA tenderness Back/Pelvis: THORACIC SPINE/UPPER BACK: Yes normal to inspection Extremity: COMMON NORMALS: full ROM, capillary refill normal and no clubbing, cyanosis or edema Neuro: SENSORIUM/ORIENTATION: Yes oriented to person and Yes oriented to place MENINGEAL SIGNS: Yes no meningeal signs SPEECH: abnormal speech Details: garbled and slurred MOTOR EXAM: 5/5 motor strength present throughout Psych: COMMON NORMALS: cooperative and normal affect Skin: COMMON NORMALS: no rashes or lesions noted, turgor normal and no jaundice Data : 06/06/20 04:55 06/06/20 04:55 A&P Assessment and plan (1) Cerebrovascular accident: Status: Acute Qualifiers: CVA mechanism: unspecified Qualified Code(s): I63.9 - Cerebral infarction, unspecified (2) Aphasia: Status: Acute (3) Diabetes: Status: Chronic (4) Hypertension: Status: Chronic (5) Acute kidney injury superimposed on chronic kidney disease: Status: Acute (6) Acute cystitis: Status: Resolved Qualifiers: Hematuria presence: without hematuria Qualified Code(s): N30.00 - Acute cystitis without hematuria Additional A&P Information Place patient under observation. 24-hour telemetry. Continue aspirin and Plavix. High-dose Statin. Speech therapy consult PT to evaluate Reconsult neurology. Aggressive blood sugar management with insulin sliding scale. We will continue Lantus insulin once speech clears to eat. We will continue Levaquin prescribed on discharge yesterday for UTI. Continue home antihypertensives. May need a repeat MRI to document acute CVA. We will hydrate with IV normal saline to treat acute renal failure secondary to dehydration. Attestations Medical Necessity Statement*: Patient presented with ongoing aphasia, confusion, SHANA and hyperglycemia. She will need to be hospitalized for IV hydration, treat blood sugar and further evaluate the aphasia. She is expected to spend less than 2 midnights. Time Spent in Patient Care: 67 minutes. Coding Level of Care Code Acute Operations Staff Specialist Security for [facility] Fwd Exam Comprehensive Diagnoses Cerebrovascular accident I63.9 CVA mechanism: unspecified Aphasia R47.01 Diabetes E11.9 Hypertension I10 Acute kidney injury superimposed on chronic kidney disease N17.9; N18.9 Acute cystitis N30.00 Hematuria presence: without hematuria
[2020-06-05 23:28] LABS: Amphetamines Screen Urine Negative (Negative); Barbiturates Screen Urine Negative (Negative); Benzodiazepines Screen Urine Negative (Negative); Cocaine Screen Urine Negative (Negative); Opiate Screen Urine Positive (Negative); PCP Screen Urine Negative (Negative); THC Screen Urine Negative (Negative)
[2020-06-06] VITALS (10 sets, daily range): BP systolic 135–194; BP diastolic 49–92; PULSE 59–88; RESP 16–18; TEMP 36.2–37.3; O2SAT 93–98
[2020-06-06] MEDS: famotidine 20 mg/2 mL INJ IVP ×2 (02:51→13:34)
[2020-06-06] MEDS: acetaminophen 325 mg Tablet 650 MG PO ×2 (02:53→21:21)
[2020-06-06] MEDS: enoxaparin 40 mg/0.4 mL Syringe SUBCUT (02:53)
[2020-06-06] MEDS: sodium chloride 0.9% 1,000 ML 75 ML IV (02:53)
[2020-06-06 06:07] LABS: Basophils % 0.6 %; Eosinophils # 0.2 10^3/uL (0.0-0.8); Eosinophils % 3.1 %; Hematocrit 27.7 % (37.0-47.0); Hemoglobin 8.4 g/dL (11.5-15.3); Lymphocytes # 1.4 10^3/uL (0.8-4.8); Lymphocytes % 19.9 %; Mean Corpuscular HGB Conc 30.3 g/dL (30.0-36.0); Mean Corpuscular Hemoglobin 30.8 pg (28.0-34.0); Mean Corpuscular Volume 101.5 fL (81-99); Mean Platelet Volume 11.7 fL (7.4-10.4); Monocytes # 0.7 10^3/uL (0.2-0.9); Monocytes % 9.7 %; Neutrophils % 65.6 %; Nucleated Red Blood Cells % 0 %; Platelet Count 285 10^3/cmm (130-400); Red Blood Count 2.73 10^6/uL (4.1-5.3); Red Cell Distribution Width 18.8 % (12.1-15.1); White Blood Count 7.2 10^3/uL (4.0-10.0)
[2020-06-06 06:16] LABS: INR 1.01 (0.8-1.2)
[2020-06-06 06:29] LABS: Glucose Point of Care 280 mg/dL (70-110)
[2020-06-06 06:41] LABS: Anion Gap 11.8 (5-19); Blood Urea Nitrogen 37 mg/dL (8-23); Calcium 9.2 mg/dL (8.5-10.5); Carbon Dioxide 28 mmol/L (22-29); Chloride 104 mmol/L (98-107); Glucose 246 mg/dL (65-115); Osmolality Calculated 307 mOsm/kg (285-295); Potassium 3.8 mmol/L (3.5-5.1); Sodium 140 mmol/L (136-145)
--- NOTE | 2020-06-06 09:26 | PC.CHAP ---
Pastoral Care Encounter/Spiritual Assessment Type of Contact [] Declined courtesy clerk visit [] Patient/Family/Request visit [] Outpatient visit [] Follow-up visit [] Physician referral [] Code/Alert [x] Routine visit [] Staff referral [] Actively dying [] Patient sleeping [] Family support [] [] Out of room [] Palliative care [] [] Receiving care in room [] Pre-surgical visit [] Trauma [] Long length of stay [] ICU visit [] Other: Relational/Emotional Strength [] Patient feels connected with others/family/visitors/staff [x] Distress [] Loneliness/isolation [] Abandonment Spirituality of Patient [x] Person of Namita [] Attends Mormonism of their Namita [] Believes in Prayer [] Reads Bible or Yarsanism materials [] There are Spiritual issues to be addressed Station Engineer Interventions [x] Prayer [] Active listening [] Non-anxious presence [] Spiritual/emotional support [] Crisis/trauma care [] Spiritual counseling [] Bereavement support [] Provided bereavement packet [] Provided Bible/devotional materials [] Provided toy/stuffed animal, coloring book to patient or family member [] Provided Communion [] Anointing/[place] [] Salvation [] Completed spiritual assessment [] Other: Impact on Illness or Injury [] Angry [] Fearful [] Anxious [] Often cries [] Exhaustion [] Unable to work [] Unable to attend yazidi [] Unable to walk/stand [] Unable to read [] Unable to drive [] Unable to eat/drink [] Unable to sleep [] Unable to be with family [] Patient intubated [] Other: Summary patient very confused unhappy very argumentive Time spent with patient 10 min
[2020-06-06] MEDS: lactobacillus 1 Tablet 1 TAB PO (09:27)
[2020-06-06] MEDS: docusate sodium 100 mg Capsule PO ×2 (09:27→17:12)
[2020-06-06] MEDS: amlodipine 5 mg Tablet 10 MG PO (09:27)
[2020-06-06] MEDS: sertraline 50 mg Tablet PO (09:27)
[2020-06-06] MEDS: levoFLOXacin 500 mg Tablet PO (09:28)
[2020-06-06] MEDS: clopidogrel 75 mg Tablet PO (09:28)
[2020-06-06] MEDS: atorvastatin 40 mg Tablet 20 MG PO (09:28)
[2020-06-06] MEDS: metoprolol tartrate 50 mg Tablet PO ×2 (09:28→17:12)
[2020-06-06] MEDS: hydroxyurea 500 mg Capsule PO (09:28)
--- NOTE | 2020-06-06 10:53 | P.PN_ITS ---
Subjective Subjective: Interval history: was seen and examined this morning.She was bit agitated this morning,but was AO*3. She has no focal deficit, speech is fine,she has no difficulty swallowing. She participated in physical therapy well. Her Vitals and labs have been reviewed. Medications: Reviewed: Yes Vitals/I&O/Wt Last Vital Signs Temp 97.6 F 06/06/20 07:05 Pulse 72 06/06/20 07:20 Resp 18 06/06/20 07:05 BP 165/77 06/06/20 07:05 Pulse Ox 97 06/06/20 07:05 06/05/20 06/06/20 06/06/20 22:59 06:59 14:59 Intake Total 1000 / 1000 Output Total 200 / 200 Balance 1000 / 1000 -200 / -200 Weight last 48 hrs Weight 97.522 kg Physical Exam Narrative: EXAM NARRATIVE: EXAM NARRATIVE: Awake, alert and oriented, no acute distress CVS: S1S2 N RS: CTA B/L Abd: Soft, nt/nd , bs+ HIGHER EDUCATION ADMINISTRATOR: no focal neuro deficits Data : 06/06/20 04:55 06/06/20 04:55 A&P Assessment and plan (1) Cerebrovascular accident: Patient was recently discharged from hospital after the management of TIA. Repeat C.T head without contrast :No acute intracranial pathology No Need for Repeat MRI Brain as the patent has no new neurological findings. PLan Tele Aspirin 81 mg po daily Plavix: 75 mg po daily Atorvas 20 mg po daily Status: Acute Qualifiers: CVA mechanism: unspecified Qualified Code(s): I63.9 - Cerebral infarction, unspecified (2) Acute kidney injury superimposed on chronic kidney disease: Status: Acute (3) UTI (urinary tract infection): Status: Acute (4) Hypertension: Status: Chronic (5) Diabetes: Status: Chronic Additional A&P Information dvt ppx: Lovenox 40 mg sc daily Code Status:Full Code Dispo:Home Attestations Medical Necessity Statement*: Patient needs to be in hospital for placement.She will be discharged home tomorrow with MANAGER SERVICES as well his SON is coming Coding Level of Care Code Acute Glycerin Supervisor for [facility] Diagnoses Cerebrovascular accident I63.9 CVA mechanism: unspecified Acute kidney injury superimposed on chronic kidney disease N17.9; N18.9 UTI (urinary tract infection) N39.0 Hypertension I10 Diabetes E11.9
[2020-06-06 11:34] LABS: Glucose Point of Care 277 mg/dL (70-110)
[2020-06-06 17:20] LABS: Glucose Point of Care 166 mg/dL (70-110)
--- NOTE | 2020-06-06 18:19 | PC.NURSE ---
SHIFT SUMMARY WHEN THIS NURSE ARRIVED THIS AM, PATIENT COULD ANSWER QUESTIONS APPROPRIATELY AND DID WELL WITH THERAPY, BUT PATIENT WAS YELLING AND SAYING THINGS THAT DIDN'T MAKE SENSE. THIS NURSE CONTACTED DR. DALE. DR. DALE STATED TO PROCEED WITH GIVING PATIENT REGULAR MEDICATIONS AND CONTINUE TO MONITOR. PATIENT HAS BEEN MUCH BETTER THIS AFTERNOON. CALM, ALERT AND ORIENTED. GOOD URINE OUTPUT. CONTINENT. PATIENT NO LONGER YELLING OUT. CONTINUE TO MONITOR.
[2020-06-06 20:55] LABS: Glucose Point of Care 192 mg/dL (70-110)
[2020-06-07] MEDS: enoxaparin 40 mg/0.4 mL Syringe SUBCUT (02:31)
[2020-06-07] MEDS: famotidine 20 mg/2 mL INJ IVP (02:31)
[2020-06-07 03:45] VITALS: BP 179/68; PULSE 68; RESP 18; TEMP 37.1; O2SAT 94
[2020-06-07 06:33] LABS: Glucose Point of Care 203 mg/dL (70-110)
[2020-06-07 07:05] VITALS: BP 197/80; PULSE 79; RESP 16; TEMP 36.8; O2SAT 96
[2020-06-07 08:00] VITALS: PULSE 70
[2020-06-07] MEDS: lactobacillus 1 Tablet 1 TAB PO (08:53)
[2020-06-07] MEDS: amlodipine 5 mg Tablet 10 MG PO (08:53)
[2020-06-07] MEDS: levoFLOXacin 500 mg Tablet PO (08:53)
[2020-06-07] MEDS: docusate sodium 100 mg Capsule PO (08:53)
[2020-06-07] MEDS: clopidogrel 75 mg Tablet PO (08:53)
[2020-06-07] MEDS: metoprolol tartrate 50 mg Tablet PO (08:53)
[2020-06-07] MEDS: sertraline 50 mg Tablet PO (08:54)
[2020-06-07] MEDS: atorvastatin 40 mg Tablet 20 MG PO (08:55)
[2020-06-07 10:57] VITALS: BP 159/84; PULSE 65; RESP 16; TEMP 37.5; O2SAT 97
[2020-06-07 11:25] VITALS: BP 159/84; PULSE 65; RESP 16; TEMP 37.5; O2SAT 97
[2020-06-07 12:09] LABS: Glucose Point of Care 211 mg/dL (70-110)
== END 2020-06-07 12:25 | disposition home or self-care (01) ==
LOC: ER 19:58 → MEDSURG 06-06 08:05
PROVIDERS: Admitting Provider Internal Medicine; Emergency Provider Family Medicine; PCP Family Medicine; Visit Provider Internal Medicine
DX: I63.9 Cerebral infarction, unspecified (principal); R47.01 Aphasia; N17.9 Acute kidney failure, unspecified; E11.22 Type 2 diabetes mellitus with diabetic chronic kidney disease; I12.9 Hypertensive chronic kidney disease with stage 1 through stage 4 chronic kidney disease, or unspecified chronic kidney disease; N18.9 Chronic kidney disease, unspecified; N30.00 Acute cystitis without hematuria; Z86.73 Personal history of transient ischemic attack (TIA), and cerebral infarction without residual deficits; Z79.4 Long term (current) use of insulin; I25.10 Atherosclerotic heart disease of native coronary artery without angina pectoris; Z87.11 Personal history of peptic ulcer disease
CPT/HCPCS: 12345; 36415; 36416; 70450; 71045; 80048; 80053; 80306; 81001; 82962; 83605; 83735; 84100; 85025; 85610; 85730; 92507; 92523; 92526; 92610; 93005; 96360; 96361; 96372; 97110; 97116; 97162; 99282; 99285; G0378; J1650; J1815; J3490; J7030; J8999

== ENCOUNTER → 2020-06-11 09:54 | Outpatient (BNVA) | payer MEDICARE, SELFPAY | PROVIDERS: PCP Family Medicine; Referring Provider Student in an Organized Health Care Education/Training Program; Visit Provider Nurse Practitioner | DX: I65.29 Occlusion and stenosis of unspecified carotid artery (principal); Z86.73 Personal history of transient ischemic attack (TIA), and cerebral infarction without residual deficits | CPT/HCPCS: 99204; 99205 ==

== ENCOUNTER 2020-07-05 09:55 | Outpatient (CLI) | payer MEDICARE, SELFPAY | END 2020-07-05 09:56 | disposition home or self-care (01) | LOC: WOUND 09:56 | PROVIDERS: PCP Family Medicine; Visit Provider Nurse Practitioner Family | DX: E11.621 Type 2 diabetes mellitus with foot ulcer (principal); L97.522 Non-pressure chronic ulcer of other part of left foot with fat layer exposed; L97.512 Non-pressure chronic ulcer of other part of right foot with fat layer exposed | CPT/HCPCS: 11042; G0463; L3260 ==

== ENCOUNTER 2020-07-12 11:16 | Outpatient (CLI) | payer MEDICARE, SELFPAY | END 2020-07-12 11:17 | disposition home or self-care (01) | LOC: WOUND 11:18 | PROVIDERS: PCP Family Medicine; Visit Provider Nurse Practitioner Family | DX: E11.621 Type 2 diabetes mellitus with foot ulcer (principal); L97.522 Non-pressure chronic ulcer of other part of left foot with fat layer exposed; L97.512 Non-pressure chronic ulcer of other part of right foot with fat layer exposed | CPT/HCPCS: 11042 ==

== ENCOUNTER 2020-07-19 11:15 | Outpatient (CLI) | payer MEDICARE, SELFPAY | END 2020-07-19 11:16 | disposition home or self-care (01) | LOC: WOUND 11:16 | PROVIDERS: PCP Family Medicine; Visit Provider Nurse Practitioner Family | DX: E11.621 Type 2 diabetes mellitus with foot ulcer (principal); L97.522 Non-pressure chronic ulcer of other part of left foot with fat layer exposed | CPT/HCPCS: 11042 ==

== ENCOUNTER 2020-07-26 10:29 | Outpatient (CLI) | payer MEDICARE, SELFPAY | END 2020-07-26 10:30 | disposition home or self-care (01) | LOC: WOUND 10:30 | PROVIDERS: PCP Family Medicine; Visit Provider Nurse Practitioner Family | DX: E11.621 Type 2 diabetes mellitus with foot ulcer (principal); L97.521 Non-pressure chronic ulcer of other part of left foot limited to breakdown of skin | CPT/HCPCS: 11042 ==

== ENCOUNTER 2020-08-09 10:01 | Outpatient (CLI) | payer MEDICARE, SELFPAY | END 2020-08-09 10:02 | disposition home or self-care (01) | LOC: WOUND 10:02 | PROVIDERS: PCP Family Medicine; Visit Provider Nurse Practitioner Family | DX: E11.621 Type 2 diabetes mellitus with foot ulcer (principal); L97.521 Non-pressure chronic ulcer of other part of left foot limited to breakdown of skin | CPT/HCPCS: 11042; 99212 ==

== ENCOUNTER → 2020-08-13 10:08 | Outpatient (BNVA) | payer MEDICARE, SELFPAY | PROVIDERS: PCP Family Medicine; Referring Provider Nurse Practitioner Family; Visit Provider Podiatrist Foot & Ankle Surgery | DX: R20.0 Anesthesia of skin (principal); M85.871 Other specified disorders of bone density and structure, right ankle and foot | CPT/HCPCS: 77077 ==

== ENCOUNTER 2021-04-07 15:40 | Inpatient (IN) | payer MEDICARE, SELFPAY ==
[2021-04-07] VITALS (10 sets, daily range): BP systolic 156–212; BP diastolic 67–108; PULSE 84–94; RESP 18–24; TEMP 36.8–37.1; O2SAT 95–100; BMI 25.1
[2021-04-07 15:52] LABS: Glucose Point of Care 297 mg/dL (70-110)
--- NOTE | 2021-04-07 15:56 | ED_ITS ---
HPI - Neuro Symptoms/Deficit General: Chief Complaint: Neuro Symptoms/Deficit Stated Complaint: STROKE LIKE SYMP Time Seen by Provider: 04/07/21 15:43 History of Present Illness: HPI Narrative: Ms. Noble is a 75-year-old lady without significant past medical history presents to the emergency department due to altered mental status. Upon initial arrival the patient is confused which markedly limits history. Almost all questions she simply states that she does not know. She reportedly per chart review has a history of stroke and CAD. She was found today to be confused by a excavator backhoe operator/friend. This friend saw her on Monday 04/02 and she was totally normal at that time. At baseline she is oriented and normal functional status. She sent a text that seemed normal to this friend on evening. Patient otherwise reports living alone with cats and therefore last known well is unclear. Concerning on patient's medication list is baclofen, unknown last time that she took this or how she has been taking it. History is limited by patient's mental status change Review of Systems General: Reports: ROS unobtainable due to mental status PFS ED PFSH: Medical History Acute cystitis Acute kidney injury superimposed on chronic kidney disease Aphasia Aspiration pneumonitis Carotid artery disease Carotid artery stenosis Cerebrovascular accident Patient with ongoing aphasia Charcot foot due to diabetes mellitus Chronic kidney disease Coronary artery disease Diabetes Diabetic foot ulcer History of hyperbaric oxygen therapy Hypertension Osteomyelitis PUD (peptic ulcer disease) Sepsis Stroke UTI (urinary tract infection) Surgical History S/P carotid endarterectomy S/P PICC central line placement Patient had tunneled left subclavian central line for IV antibiotics for osteomyelitis which was removed by Dr. Zelaya 2016 Family History Other Family history non-contributory Social History Smoking and tobacco status: never smoked Alcohol intake: never Household members: family Housing: House History of recent travel: No Physical Exam Narrative: EXAM NARRATIVE: GENERAL/CONSTITUTIONAL -somewhat ill-appearing. No acute distress. Eyes - PERRL, no conjunctival injection ENMT - Atraumatic external nose and ears. Moist mucous membranes NECK - supple. trachea midline. No meningitic findings. CARDIOVASCULAR - regular rate and rhythm. Normal peripheral perfusion RESPIRATORY -diminished to auscultation bilaterally ABDOMEN/GI -mildly tender to palpation. MSK - Extremities without obvious deformity or tenderness to palpation SKIN - Warm, Dry NEURO - alert but disoriented. Confused responses. Moves all extremities equally but difficulty following commands. No obvious focal neurologic deficits. There is no muscle rigidity though mild generalized tremor is present. No asterixis. PSYCH -impaired cognition and memory Course ED course: - Patient was seen and evaluated by me at bedside - Patient placed on cardiac monitors, IV access obtained - Initial evaluation notable for exam as noted above, abnormal neurologic status. I contacted the patient's friend and verify that last definitive known well was 04/02/2021. The patient is not a candidate for acute thrombolysis. - Labs notable for mild leukocytosis. Normocytic anemia. Metabolic panel without acute electrolyte abnormality to explain symptoms, mildly decreased bicarb and increased anion gap. Glucose is elevated however ketones are negative. Urinalysis pending at time of admission. - Imaging notable for no finding on chest x-ray to explain symptoms. CT head negative. No large vessel occlusion to explain symptoms on CTA. No finding on CT abdomen pelvis and chest to explain symptoms. - Upon serial reexamination after treatment the patient was somewhat worsened. She had worsening of mental status without other focal finding development. Blood pressure was elevated and Cardene drip was ordered however blood pressure spontaneously improved and patient did not require administration. - Based on patient history, evaluation, labs, and imaging as interpreted the most likely cause of the patient's condition is unspecified encephalopathy with concern for baclofen withdrawal - The results of ED evaluation were discussed with the patient including plan for admission due to requirement for level of care not available if discharged to prevent significant worsening/deterioration. -Hospitalist service contacted and agreed to admit the patient. - Patient was admitted without further deterioration or significant events. Vital Signs: Vital signs: Vital Signs Temperature 98.4 F 04/12/21 20:00 Pulse Rate 72 04/12/21 20:00 Respiratory Rate 21 H 04/12/21 20:00 Blood Pressure 161/73 04/12/21 20:00 Pulse Oximetry 93 04/12/21 20:00 MDM - Neuro Symptoms/Deficit Medical Records: Attestation: I reviewed the patient's medical records. Lab Data: Attestation: I reviewed the patient's lab results. Labs: Lab Results 04/07/21 04/07/21 04/07/21 15:50 15:50 15:50 WBC 11.7 10^3/uL H 10 ^3/uL (4.0-10.0) RBC 4.35 10^6/uL 10^6 /uL (4.1-5.3) Hgb 11.4 g/dL L g/dL (11.5-15.3) Hct 38.1 % % (37.0-47.0) MCV 87.6 fl fl (81-99) MCH 26.2 pg L pg (28.0-34.0) MCHC 29.9 g/dL L g/dL (30.0-36.0) RDW 27.9 % H % (12.1-15.1) Plt Count 441 10^3/cmm H 10 ^3/cmm (130-400) MPV 11.0 fL H fL (7.4-10.4) Neut % (Auto) 82.2 % % Lymph % (Auto) 8.7 % % Monroe % (Auto) 4.8 % % Eos % (Auto) 1.2 % % Baso % (Auto) 0.5 % % Neut # (Auto) 9.61 10^3/uL H 10 ^3/uL (1.8-7.7) Lymph # (Auto) 1.0 10^3/uL 10^3/ uL (0.8-4.8) Monroe # (Auto) 0.6 10^3/uL 10^3/ uL (0.2-0.9) Eos # (Auto) 0.1 10^3/uL 10^3/ uL (0.0-0.8) Baso # (Auto) 0.1 10^3/uL 10^3/ uL (0.0-0.1) Nucleated RBC % (a uto) 0 % % Nucleated RBCs # 0.0 /100WBC /100W BC Specimen Type Sample Site ABG pH ABG pCO2 ABG pO2 ABG HCO3 ABG Base Excess Riki Test Hematocrit O2 Delivery Device FiO2 Stamping Machine Operator ID Sodium 136 mmol/L mmol/L (136-145) Potassium 4.1 mmol/L mmol/L (3.5-5.1) Chloride 99 mmol/L mmol/L (98-107) Carbon Dioxide 19 mmol/L L mmol/ L (22-29) Anion Gap 22.1 H (5-19) BUN 32 mg/dL H mg/dL (8-23) Creatinine 1.0 mg/dL H mg/dL (0.5-0.9) GFR Calculation Not Reportable Glucose 338 mg/dL H mg/dL (65-115) POC Glucose 297 mg/dL H mg/dL (70-110) Calculated Osmolal ity 302 mOsm/kg H mOs m/kg (285-295) Lactate Calcium 9.6 mg/dL mg/dL (8.5-10.5) Phosphorus 2.6 mg/dL mg/dL (2.5-4.5) Magnesium 1.6 mg/dL L mg/dL (1.7-2.3) Total Bilirubin 0.3 mg/dL mg/dL (0.15-1.2) AST 14 U/L U/L (0-32) ALT 8 U/L U/L (0-33) Alkaline Phosphata se 107 IU/L H IU/L (35-105) Ammonia Creatine Kinase 41 U/L U/L (26-192) Troponin T Baselin e Troponin T 120 Min [place] Troponin T C-Reactive Protein 5.3 mg/L H mg/L (0.0-4.9) Total Protein 7.2 g/dL g/dL (6.6-8.7) Albumin 4.2 g/dL g/dL (3.5-5.2) Globulin 3.0 g/dL g/dL (1.3-4.6) Lipase 29 U/L U/L (13-60) Vitamin B12 Procalcitonin 0.14 ng/mL ng/mL (0-0.5) TSH 0.62 uIU/mL uIU/m L (0.27-4.20) Urine Color Urine Appearance Urine pH Ur Specific Gravit y Urine Protein Urine Glucose (UA) Urine Ketones Urine Blood Urine Nitrate Urine Bilirubin Urine Urobilinogen Ur Leukocyte Delmy ase Urine RBC Urine WBC Ur Squamous Epith Cells Amorphous Sediment Urine Bacteria Salicylates < 0.3 mg/dL L mg/ dL (3-10) Urine Opiates Scre en Acetaminophen < 5.0 ug/mL L ug/ mL (10-30) Ur Barbiturates Sc reen Ur Phencyclidine S crn Ur Amphetamines Sc reen U Benzodiazepines Scrn Urine Cocaine Scre en U Marijuana (THC) Screen Ethyl Alcohol < 10 mg/dL mg/dL (0-10) Serum Ketones RPR SARS-CoV-2 Ag (Rap id) 04/07/21 04/07/21 04/07/21 15:50 15:50 15:50 WBC RBC Hgb Hct MCV MCH MCHC RDW Plt Count MPV Neut % (Auto) Lymph % (Auto) Monroe % (Auto) Eos % (Auto) Baso % (Auto) Neut # (Auto) Lymph # (Auto) Monroe # (Auto) Eos # (Auto) Baso # (Auto) Nucleated RBC % (a uto) Nucleated RBCs # Specimen Type Sample Site ABG pH ABG pCO2 ABG pO2 ABG HCO3 ABG Base Excess Riki Test Hematocrit O2 Delivery Device FiO2 Stamping Machine Operator ID Sodium Potassium Chloride Carbon Dioxide Anion Gap BUN Creatinine GFR Calculation Glucose POC Glucose Calculated Osmolal ity Lactate 1.4 mmol/L mmol/L (0.5-2.2) Calcium Phosphorus Magnesium Total Bilirubin AST ALT Alkaline Phosphata se Ammonia Creatine Kinase Troponin T Baselin e 20 ng/L H ng/L (0-10) Troponin T 120 Min [place] Troponin T C-Reactive Protein Total Protein Albumin Globulin Lipase Vitamin B12 Procalcitonin TSH Urine Color Urine Appearance Urine pH Ur Specific Gravit y Urine Protein Urine Glucose (UA) Urine Ketones Urine Blood Urine Nitrate Urine Bilirubin Urine Urobilinogen Ur Leukocyte Delmy ase Urine RBC Urine WBC Ur Squamous Epith Cells Amorphous Sediment Urine Bacteria Salicylates Urine Opiates Scre en Acetaminophen Ur Barbiturates Sc reen Ur Phencyclidine S crn Ur Amphetamines Sc reen U Benzodiazepines Scrn Urine Cocaine Scre en U Marijuana (THC) Screen Ethyl Alcohol Serum Ketones Negative (Negative) RPR SARS-CoV-2 Ag (Rap id) 04/07/21 04/07/21 04/07/21 16:10 16:24 16:32 WBC RBC Hgb Hct MCV MCH MCHC RDW Plt Count MPV Neut % (Auto) Lymph % (Auto) Monroe % (Auto) Eos % (Auto) Baso % (Auto) Neut # (Auto) Lymph # (Auto) Monroe # (Auto) Eos # (Auto) Baso # (Auto) Nucleated RBC % (a uto) Nucleated RBCs # Specimen Type Arterial Sample Site Radial, left ABG pH 7.49 H (7.35-7.45) ABG pCO2 35.2 mmHg mmHg (35-45) ABG pO2 71.9 mmHg L mmHg (80.0-100.0) ABG HCO3 27.0 mmol/L H mmo l/L (22-26) ABG Base Excess 3.7 mmol/L H mmol /L (-2.0-2.0) Riki Test Pos Hematocrit 33.6 % L % (37-47) O2 Delivery Device Room air FiO2 21.0 % % Stamping Machine Operator ID Cak Sodium Potassium Chloride Carbon Dioxide Anion Gap BUN Creatinine GFR Calculation Glucose POC Glucose Calculated Osmolal ity Lactate Calcium Phosphorus Magnesium Total Bilirubin AST ALT Alkaline Phosphata se Ammonia Creatine Kinase Troponin T Baselin e Troponin T 120 Min [place] Troponin T C-Reactive Protein Total Protein Albumin Globulin Lipase Vitamin B12 Procalcitonin TSH Urine Color Straw (Yellow) Urine Appearance Cloudy (CLEAR) Urine pH 5 (5-7) Ur Specific Gravit y 1.025 (1.005-1.030) Urine Protein 3+ H (Negative) Urine Glucose (UA) 4+ H (Normal) Urine Ketones Negative (Negative) Urine Blood Neg (Negative) Urine Nitrate Negative (Negative) Urine Bilirubin Neg (Negative) Urine Urobilinogen Norm mg/dL mg/dL (Negative) Ur Leukocyte Delmy ase Negative (Negative) Urine RBC None /hpf /hpf (0-2) Urine WBC 10-15 /hpf H /hpf (0-5) Ur Squamous Epith Cells None /hpf /hpf (0-5) Amorphous Sediment Not Reportable Urine Bacteria 4+ /hpf H /hpf (NONE) Salicylates Urine Opiates Scre en Acetaminophen Ur Barbiturates Sc reen Ur Phencyclidine S crn Ur Amphetamines Sc reen U Benzodiazepines Scrn Urine Cocaine Scre en U Marijuana (THC) Screen Ethyl Alcohol Serum Ketones RPR SARS-CoV-2 Ag (Rap id) Negative (Negative) 04/07/21 04/07/21 04/07/21 16:32 17:45 17:45 WBC RBC Hgb Hct MCV MCH MCHC RDW Plt Count MPV Neut % (Auto) Lymph % (Auto) Monroe % (Auto) Eos % (Auto) Baso % (Auto) Neut # (Auto) Lymph # (Auto) [place] # (Auto) Eos # (Auto) Baso # (Auto) Nucleated RBC % (a uto) Nucleated RBCs # Specimen Type Sample Site ABG pH ABG pCO2 ABG pO2 ABG HCO3 ABG Base Excess Riki Test Hematocrit O2 Delivery Device FiO2 Stamping Machine Operator ID Sodium Potassium Chloride Carbon Dioxide Anion Gap BUN Creatinine GFR Calculation Glucose POC Glucose Calculated Osmolal ity Lactate Calcium Phosphorus Magnesium Total Bilirubin AST ALT Alkaline Phosphata se Ammonia Creatine Kinase Troponin T Baselin e Troponin T 120 Min [place] 17.76 ng/L H ng/L (0-10) Delta Troponin T -2.24 ABS# L ABS# (0-10) C-Reactive Protein Total Protein Albumin Globulin Lipase Vitamin B12 1352 pg/mL H pg/m L (232-1245) Procalcitonin TSH Urine Color Urine Appearance Urine pH Ur Specific Gravit y Urine Protein Urine Glucose (UA) Urine Ketones Urine Blood Urine Nitrate Urine Bilirubin Urine Urobilinogen Ur Leukocyte Delmy ase Urine RBC Urine WBC Ur Squamous Epith Cells Amorphous Sediment Urine Bacteria Salicylates Urine Opiates Scre en Negative ng/mL ng /mL (Negative) Acetaminophen Ur Barbiturates Sc reen Negative ng/mL ng /mL (Negative) Ur Phencyclidine S crn Negative ng/mL ng /mL (Negative) Ur Amphetamines Sc reen Negative ng/mL ng /mL (Negative) U Benzodiazepines Scrn Positive ng/mL H ng/mL (Negative) Urine Cocaine Scre en Negative ng/mL ng /mL (Negative) U Marijuana (THC) Screen Negative ng/mL ng /mL (Negative) Ethyl Alcohol Serum Ketones RPR Nonreactive (Nonreactive) SARS-CoV-2 Ag (Rap id) 04/07/21 17:45 WBC RBC Hgb Hct MCV MCH MCHC RDW Plt Count MPV Neut % (Auto) Lymph % (Auto) [place] % (Auto) Eos % (Auto) Baso % (Auto) Neut # (Auto) Lymph # (Auto) [place] # (Auto) Eos # (Auto) Baso # (Auto) Nucleated RBC % (a uto) Nucleated RBCs # Specimen Type Sample Site ABG pH ABG pCO2 ABG pO2 ABG HCO3 ABG Base Excess Riki Test Hematocrit O2 Delivery Device FiO2 Stamping Machine Operator ID Sodium Potassium Chloride Carbon Dioxide Anion Gap BUN Creatinine GFR Calculation Glucose POC Glucose Calculated Osmolal ity Lactate Calcium Phosphorus Magnesium Total Bilirubin AST ALT Alkaline Phosphata se Ammonia 20 umol/L umol/L (11-51) Creatine Kinase Troponin T Baselin e Troponin T 120 Min [place] Troponin T C-Reactive Protein Total Protein Albumin Globulin Lipase Vitamin B12 Procalcitonin TSH Urine Color Urine Appearance Urine pH Ur Specific Gravit y Urine Protein Urine Glucose (UA) Urine Ketones Urine Blood Urine Nitrate Urine Bilirubin Urine Urobilinogen Ur Leukocyte Delmy ase Urine RBC Urine WBC Ur Squamous Epith Cells Amorphous Sediment Urine Bacteria Salicylates Urine Opiates Scre en Acetaminophen Ur Barbiturates Sc reen Ur Phencyclidine S crn Ur Amphetamines Sc reen U Benzodiazepines Scrn Urine Cocaine Scre en U Marijuana (THC) Screen Ethyl Alcohol Serum Ketones RPR SARS-CoV-2 Ag (Rap id) EKG Data^: EKG 1: Attestation: I personally reviewed and interpreted this EKG as follows: EKG interpretation date: 04/07/21 EKG interpretation time: 15:55 Interpretation: Twelve-lead EKG shows a regular rhythm at a rate of 85. VA interval 144, QRS duration 110, QTc 409. Left axis deviation. Interpretation: Sinus rhythm. PVCs. EKG 2: Attestation: I personally reviewed and interpreted this EKG as follows: EKG interpretation date: 04/07/21 EKG interpretation time: 18:15 Interpretation: Twelve-lead EKG shows a regular rhythm at a rate of 93. VA interval 183, QRS duration 97, QTc 414. Borderline axis. Interpretation: Sinus rhythm. Critical Care Time Critical Care Time: Critical Care Time: Yes Total Critical Care Time: 60 Attestation: Due to a high probability of clinically significant, possibly life threatening deterioration, the patient required my highest level of attention and preparedness to intervene emergently and I personally spent this critical care time directly and personally managing the patient. This critical care time included obtaining a history; examining the patient; pulse oximetry; ordering and review of laboratory and imaging studies; arranging urgent treatment with development of a management plan; evaluation of patient's response to treatment; frequent reassessment; and, discussions with other providers as applicable. It was exclusive of separately billable procedures. 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
--- NOTE | 2021-04-07 15:57 | XRR_ITS ---
PROCEDURE INFORMATION: Exam: XR Chest Exam date and time: 04/07/2021 3:57 PM Age: 75 years old Clinical indication: Shortness of breath; Patient HX: AMS w SOB TECHNIQUE: Imaging protocol: XR of the chest. Views: 1 view. COMPARISON: CR XR chest 1V portable [id number] 06/05/2020 8:08 PM FINDINGS: Lungs: Unremarkable. No consolidation. Pleural spaces: Unremarkable. No pleural effusion. No pneumothorax. Heart/Mediastinum: Cardiac silhouette upper normal. Vasculature: Unfolding of the thoracic aorta. Bones/joints: Unremarkable. XR/XR chest 1V portable [id number] IMPRESSION: No acute radiographic findings. Radiation Dose CTDIVOL = (mGy): DLP = (mGy-cm)
--- NOTE | 2021-04-07 15:57 | CTR_ITS ---
PROCEDURE INFORMATION: Exam: CT Head Without Contrast Exam date and time: 04/07/2021 3:57 PM Age: 75 years old Clinical indication: Altered mental status/memory loss; Confusion or disorientation; Patient HX: HX of tremors and prev stroke C/O confusion and slurred speech; Additional info: AMS TECHNIQUE: Imaging protocol: Computed tomography of the head without contrast. Radiation optimization: All CT scans at this facility use at least one of these dose optimization techniques: automated exposure control; mA and/or kV adjustment per patient size (includes targeted exams where dose is matched to clinical indication); or iterative reconstruction. COMPARISON: CT head wo con* [id number] 06/05/2020 8:11 PM RADIATION DOSE METRICS: Total DLP (mGy-cm): 731.49 FINDINGS: Brain: No intracranial hemorrhage. Unchanged chronic left thalamic lacunar infarct. Normal chacon-white differentiation with no evidence of edema or acute infarct. No extra-axial fluid collection. Cerebral ventricles: No ventriculomegaly. Paranasal sinuses: Visualized sinuses are unremarkable. No fluid levels. Mastoid air cells: Visualized mastoid air cells are well aerated. Bones/joints: No acute fracture. Soft tissues: Unremarkable. CT/CT head wo con* [id number] IMPRESSION: No acute intracranial abnormality. Radiation Dose CTDIVOL = (mGy): DLP = 731.49 (mGy-cm)
--- NOTE | 2021-04-07 16:00 | ECG_ITS ---
[facility] Test Date: 2021-04-07 Pat Name: Katy Noble Department: Room: Gender: Female Pen Tester: : 1945 Requested By: Robert Flowers Order Number: [id number] Jackson MD: Shakir Vargas M.D. Measurements Intervals [place] Rate: 85 P: 13 [place]: 144 QRS: -10 QRSD: 110 T: 63 QT: 366 QTc: 438 Interpretive Statements SINUS RHYTHM WITH OCCASIONAL ECTOPIC PREMATURE COMPLEXES LEFT ATRIAL ENLARGEMENT [-0.15mV P-WAVE IN V1/V2] Compared to ECG 06/05/2020 21:58:53 Myocardial infarct finding no longer present Electronically Signed On 04-08-2021 17:00:01 ROD PILER by Shakir Vargas M.D. [id number]
[2021-04-07 16:08] LABS: Basophils # 0.1 10^3/uL (0.0-0.1); Basophils % 0.5 %; Eosinophils # 0.1 10^3/uL (0.0-0.8); Eosinophils % 1.2 %; Hematocrit 38.1 % (37.0-47.0); Hemoglobin 11.4 g/dL (11.5-15.3); Lymphocytes % 8.7 %; Mean Corpuscular HGB Conc 29.9 g/dL (30.0-36.0); Mean Corpuscular Hemoglobin 26.2 pg (28.0-34.0); Mean Corpuscular Volume 87.6 fl (81-99); Monocytes # 0.6 10^3/uL (0.2-0.9); Monocytes % 4.8 %; Neutrophils # 9.61 10^3/uL (1.8-7.7); Neutrophils % 82.2 %; Nucleated Red Blood Cells % 0 %; Platelet Count 441 10^3/cmm (130-400); Red Blood Count 4.35 10^6/uL (4.1-5.3); Red Cell Distribution Width 27.9 % (12.1-15.1); White Blood Count 11.7 10^3/uL (4.0-10.0)
[2021-04-07 16:14] LABS: Ketone (Acetest) Serum Negative (Negative)
[2021-04-07 16:24] LABS: ABG PCO2 35.2 mmHg (35-45); ABG PH Result 7.49 (7.35-7.45); Arterial Blood Gas Hematocrit 33.6 % (37-47); Base Excess ABG 3.7 mmol/L (-2.0-2.0); Blood Gas Allen Test Pos; Blood Gas Operator Identificat CAK; Blood Gas Sample Site Radial, left; Blood Gas Sample Type Arterial; Oxygen Device ROOM AIR; PO2 ABG 71.9 mmHg (80.0-100.0)
[2021-04-07 16:24] LABS: Troponin(5th) Baseline 20 ng/L (0-10)
[2021-04-07 16:25] LABS: Lactate (Lactic Acid level) 1.4 mmol/L (0.5-2.2)
[2021-04-07] MEDS: sodium chloride 0.9% 1,000 ML 999 ML IV (16:34)
[2021-04-07 16:54] LABS: Urine Appearance Cloudy (CLEAR); Urine Color Straw (Yellow)
[2021-04-07 16:55] LABS: Add Urine Microscopic? YES; Bilirubin Urine Neg (Negative); Blood Urine Neg (Negative); Glucose Urine UA 4+ (Normal); Ketones Urine Negative (Negative); Leukocyte Esterase Urine Negative (Negative); Nitrate Urine Negative (Negative); Protein Urine 3+ (Negative); Specific Gravity, Urine 1.025 (1.005-1.030); Urobilinogen Urine Norm (Negative); pH Urine 5 (5-7)
[2021-04-07 16:57] LABS: Add Urine Culture? Yes; Amphetamines Screen Urine Negative (Negative); Bacteria Urine 4+ /hpf; Barbiturates Screen Urine Negative (Negative); Benzodiazepines Screen Urine Positive (Negative); Cocaine Screen Urine Negative (Negative); Opiate Screen Urine Negative (Negative); PCP Screen Urine Negative (Negative); THC Screen Urine Negative (Negative)
[2021-04-07 17:14] LABS: SARS Covid-2 Antigen Negative (Negative)
[2021-04-07 17:40] LABS: Procalcitonin 0.14 ng/mL (0-0.5); Thyroid Stimulating Hormone 0.62 uIU/mL (0.27-4.20)
[2021-04-07 17:59] LABS: Acetaminophen < 5.0 ug/mL (10-30); Alanine Aminotransferase 8 U/L (0-33); Albumin Level 4.2 g/dL (3.5-5.2); Alcohol Level < 10 mg/dL (0-10); Alkaline Phosphatase 107 IU/L (35-105); Anion Gap 22.1 (5-19); Aspartate Amino Transferase 14 U/L (0-32); Blood Urea Nitrogen 32 mg/dL (8-23); C Reactive Protein 5.3 mg/L (0.0-4.9); Calcium 9.6 mg/dL (8.5-10.5); Carbon Dioxide 19 mmol/L (22-29); Chloride 99 mmol/L (98-107); Creatine Phosphokinase 41 U/L (26-192); Glucose 338 mg/dL (65-115); Lipase 29 U/L (13-60); Magnesium 1.6 mg/dL (1.7-2.3); Osmolality Calculated 302 mOsm/kg (285-295); Phosphorus 2.6 mg/dL (2.5-4.5); Potassium 4.1 mmol/L (3.5-5.1); Salicylate < 0.3 mg/dL (3-10); Sodium 136 mmol/L (136-145); Total Bilirubin 0.3 mg/dL (0.15-1.2); Total Protein 7.2 g/dL (6.6-8.7)
--- NOTE | 2021-04-07 18:00 | ECG_ITS ---
[facility] Test Date: 2021-04-07 Pat Name: Katy Noble Department: Room: Gender: Female Insulation Helper: : 1945 Requested By: Robert Flowers Order Number: [id number] Jackson MD: Shakir Vargas M.D. Measurements Intervals [place] Rate: 93 P: 58 TN: 183 QRS: 4 QRSD: 97 T: 55 QT: 363 QTc: 453 Interpretive Statements SINUS RHYTHM POSSIBLE LEFT ATRIAL ENLARGEMENT [-0.1mV P-WAVE IN V1/V2] POSSIBLE LEFT VENTRICULAR HYPERTROPHY [VOLTAGE CRITERIA PLUS LAE OR QRS WIDENING] NONSPECIFIC T-WAVE ABNORMALITY Compared to ECG 04/07/2021 15:53:57 T-wave abnormality now present Electronically Signed On 04-08-2021 17:07:53 TAG AND LABEL CUTTER by Shakir Vargas M.D. [id number]
[2021-04-07 18:09] LABS: Ammonia 20 umol/L (11-51)
[2021-04-07 18:26] LABS: Troponin 5 2HR 17.76 ng/L (0-10)
[2021-04-07 18:29] LABS: Troponin 5 2HR Delta -2.24 ABS# (0-10)
[2021-04-07] MEDS: LORazepam 2 mg/mL INJ 1 mL 1 MG IVP ×2 (18:38→23:11)
[2021-04-07] MEDS: ondansetron 2 mg/ML SDV 2 mL 4 MG IVP (18:42)
[2021-04-07] MEDS: nicardipine 20 MG/200 ML PREMIX 50 MG IV ×2 (18:53→23:17)
[2021-04-07 19:05] LABS: Rapid Plasma Reagin Syphilis Nonreactive (Nonreactive)
[2021-04-07 19:59] LABS: Vitamin B12 1352 pg/mL (232-1245)
--- NOTE | 2021-04-07 21:38 | CTR_ITS ---
PROCEDURE INFORMATION: Exam: CT Chest With Contrast; Diagnostic Exam date and time: 04/07/2021 9:38 PM Age: 75 years old Clinical indication: Patient HX: New onset back pain; Additional info: AMS TECHNIQUE: Imaging protocol: Diagnostic computed tomography of the chest with contrast. Radiation optimization: All CT scans at this facility use at least one of these dose optimization techniques: automated exposure control; mA and/or kV adjustment per patient size (includes targeted exams where dose is matched to clinical indication); or iterative reconstruction. Contrast material: VISI 320; Contrast volume: 95 ml; Contrast route: INTRAVENOUS (IV); COMPARISON: CR (CHEST, ) 04/07/2021 4:11 PM RADIATION DOSE METRICS: Total DLP (mGy-cm): 2431.91 FINDINGS: Lungs: Unremarkable. No consolidation. No masses. Pleural spaces: Unremarkable. No pneumothorax. No pleural effusion. Heart: Cardiomegaly. Coronary artery atherosclerotic calcifications. Aorta: Unremarkable. No aortic aneurysm. Lymph nodes: Scattered prominent subcentimeter sentinel lymph nodes, nonspecific. Bones/joints: Unremarkable. No acute fracture. Soft tissues: Unremarkable. PROCEDURE INFORMATION: Exam: CT Abdomen And Pelvis With Contrast Exam date and time: 04/07/2021 9:38 PM Age: 75 years old Clinical indication: Patient HX: New onset back pain; Additional info: AMS TECHNIQUE: Imaging protocol: Computed tomography of the abdomen and pelvis with contrast. Radiation optimization: All CT scans at this facility use at least one of these dose optimization techniques: automated exposure control; mA and/or kV adjustment per patient size (includes targeted exams where dose is matched to clinical indication); or iterative reconstruction. Contrast material: VISI 320; Contrast volume: 95 ml; Contrast route: INTRAVENOUS (IV); COMPARISON: CR (CHEST, ) 04/07/2021 4:11 PM RADIATION DOSE METRICS: Total DLP (mGy-cm): 2431.91 FINDINGS: Liver: Normal. No mass. Gallbladder and bile ducts: Normal. No calcified stones. No ductal dilation. Pancreas: Normal. No ductal dilation. Spleen: Normal. No splenomegaly. Adrenal glands: Normal. No mass. Kidneys and ureters: Bilateral renal cysts, negative for follow-up advised. Stomach and bowel: Diverticulosis without diverticulitis. Appendix: No evidence of appendicitis. Intraperitoneal space: Unremarkable. No free air. No significant fluid collection. Vasculature: Unremarkable. No abdominal aortic aneurysm. Lymph nodes: Unremarkable. No enlarged lymph nodes. Urinary bladder: Rodriguez catheter in the urinary bladder with air presumed iatrogenic. Reproductive: Unremarkable as visualized. Bones/joints: Lumbar spine surgical hardware. Soft tissues: Unremarkable. CT/CT chest abd pel w con* IMPRESSION: 1. Negative for acute appearing abnormality in the chest. 2. Cardiomegaly. 3. Coronary artery atherosclerotic calcifications. 4. Scattered prominent subcentimeter sentinel lymph nodes, nonspecific. IMPRESSION: 1. Negative for acute inflammatory process in the abdomen or pelvis. 2. Bilateral renal cysts, negative for follow-up advised. 3. Diverticulosis without diverticulitis. 4. Rodriguez catheter in the urinary bladder with air presumed iatrogenic. 5. Lumbar spine surgical hardware. Radiation Dose CTDIVOL = (mGy): DLP = 2431.91~2431.91 (mGy-cm)
--- NOTE | 2021-04-07 21:41 | CTR_ITS ---
PROCEDURE INFORMATION: Exam: CT Angiography Head With Contrast, Arteriography Exam date and time: 04/07/2021 9:41 PM Age: 75 years old Clinical indication: Speech disturbance; Slurred speech; Patient HX: AMS w HX of CVA; Additional info: AMS, history of CVA TECHNIQUE: Imaging protocol: Computed tomography angiography of the head with contrast. Exam focused on the arteries. 3D rendering (Not supervised by radiologist): MIP and/or 3D reconstructed images were created by the technologist. Radiation optimization: All CT scans at this facility use at least one of these dose optimization techniques: automated exposure control; mA and/or kV adjustment per patient size (includes targeted exams where dose is matched to clinical indication); or iterative reconstruction. Contrast material: VISI 320; Contrast volume: 95 ml; Contrast route: INTRAVENOUS (IV); COMPARISON: CT angio headneck* [id number] 05/31/2020 2:56 AM RADIATION DOSE METRICS: Total DLP (mGy-cm): 2318.28 FINDINGS: ANTERIOR CIRCULATION: Right internal carotid artery: Unremarkable. Intracranial segment is patent with no significant stenosis. No aneurysm. Right middle cerebral artery: Unremarkable. No occlusion or significant stenosis. No aneurysm. Right anterior cerebral artery: Unremarkable. No occlusion or significant stenosis. No aneurysm. Left internal carotid artery: Unremarkable. Intracranial segment is patent with no significant stenosis. No aneurysm. Left middle cerebral artery: Unremarkable. No occlusion or significant stenosis. No aneurysm. 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 POSTERIOR CIRCULATION: Right vertebral artery: Unremarkable. No occlusion or significant stenosis. No aneurysm. Left vertebral artery: Unremarkable. No occlusion or significant stenosis. No aneurysm. Basilar artery: Unremarkable. No occlusion or significant stenosis. No aneurysm. Right posterior cerebral artery: Unremarkable. No occlusion or significant stenosis. No aneurysm. Left posterior cerebral artery: Unremarkable. No occlusion or significant stenosis. No aneurysm. Brain: No definite mass, mass effect, or midline shift. Cerebral ventricles: No ventriculomegaly. Bones/joints: Unremarkable. No acute fracture. Soft tissues: Unremarkable. PROCEDURE INFORMATION: Exam: CT Angiography Neck With Contrast Exam date and time: 04/07/2021 9:41 PM Age: 75 years old Clinical indication: Speech disturbance; Slurred speech; Patient HX: AMS w HX of CVA; Additional info: AMS, history of CVA TECHNIQUE: Imaging protocol: Computed tomography angiography of the neck with contrast. 3D rendering (Not supervised by radiologist): MIP and/or 3D reconstructed images were created by the technologist. Radiation optimization: All CT scans at this facility use at least one of these dose optimization techniques: automated exposure control; mA and/or kV adjustment per patient size (includes targeted exams where dose is matched to clinical indication); or iterative reconstruction. Contrast material: VISI 320; Contrast volume: 95 ml; Contrast route: INTRAVENOUS (IV); [facility] [id number] 05/31/2020 2:56 AM RADIATION DOSE METRICS: Total DLP (mGy-cm): 2318.28 FINDINGS: Right common carotid artery: No stenosis. No dissection or occlusion. Right internal carotid artery: Approximately 50% stenosis of the right proximal internal carotid artery. Right external carotid artery: No occlusion or stenosis of the origin. Left common carotid artery: No stenosis. No dissection or occlusion. Left internal carotid artery: No stenosis of the extracranial segment. No dissection or occlusion. Left external carotid artery: No occlusion or stenosis of the origin. Right vertebral artery: No stenosis. No dissection or occlusion. Left vertebral artery: No stenosis. No dissection or occlusion. Aorta: There is mild atherosclerotic disease. Thyroid: Multinodular appearance of the thyroid gland. Consider evaluation ultrasound. Soft tissues: Normal. No significant soft tissue swelling. Bones/joints: No acute fracture. CT/CT angio [facility]* [id number] IMPRESSION: No large vessel occlusion or stenosis. IMPRESSION: 1. Approximately 50% stenosis of the right proximal internal carotid artery. 2. Multinodular appearance of the thyroid gland. Consider evaluation ultrasound. REFERENCES: NASCET CRITERIA. The degree of internal carotid artery stenosis is based on NASCET criteria. Normal is no stenosis. Mild is less than 50% stenosis. Moderate is 50-69% stenosis. Severe is 70% to 99% stenosis. Total occlusion is no detectable patent lumen. Radiation Dose CTDIVOL = (mGy): DLP = 2318.28~2318.28 (mGy-cm)
--- NOTE | 2021-04-07 21:44 | PC.NURSE ---
Patient began yelling out in pain, reporting 10/10 sharp back pain. Pt denies chest pain or shortness of breath.
[2021-04-07] MEDS: fentaNYL 50 mcg/mL INJ 2mL IVP ×2 (21:55→23:13)
--- NOTE | 2021-04-07 22:00 | ECG_ITS ---
[facility] Test Date: 2021-04-08 Pat Name: Katy Noble Department: Room: 112 Gender: Female [employer] Director: : 1945 Requested By: Robert Flowers Order Number: [id number] Jackson MD: Shakir Vargas M.D. Measurements Intervals [place] Rate: 91 P: 6 [place]: 180 QRS: -23 QRSD: 99 T: 81 QT: 374 QTc: 462 Interpretive Statements SINUS RHYTHM WITH OCCASIONAL VENTRICULAR PREMATURE COMPLEXES POSSIBLE LEFT ATRIAL ENLARGEMENT [-0.1mV P WAVE IN V1/V2] LEFT VENTRICULAR HYPERTROPHY AND ST-T CHANGE [VOLTAGE CRITERIA PLUS ST/T ABNORMALITY] POSSIBLE ANTERIOR MYOCARDIAL INFARCTION , OF INDETERMINATE AGE [30 ms Q WAVE IN V3/V4, OR R < 0.2 mV IN V4] Compared to ECG 04/07/2021 18:10:00 Ventricular premature complex(es) now present ST (T wave) deviation now present Myocardial infarct finding now present T-wave abnormality no longer present Electronically Signed On 04-08-2021 17:07:00 MECHANICAL DETAILER by Shakir Vargas M.D. [id number]
[2021-04-07 22:08] LABS: Troponin 5 6HR 20.34 ng/L (0-10); Troponin 5 6HR Delta 0.34 ng/L (0-12)
[2021-04-07 22:17] LABS: Glucose Point of Care 230 mg/dL (70-110)
--- NOTE | 2021-04-07 22:22 | PC.NURSE ---
Pt continues to be restless and voice complaints of back pain. Skin flushed, hand tremulous. Temp continues to be afebrile at 98.2. Pt reports confusion about home medication list, when asked. Accucheck 230 mg/dL. Fentanyl given per order for back pain. Pt resting sporadically with eyes closed. Will transport to CT scan prior to admission to [facility].
--- NOTE | 2021-04-07 23:18 | PC.NURSE ---
Attempted to call report to [facility], RN will call back. Pt to CT for additional scans.
[2021-04-07] MEDS: iodixanol 320 mg/mL 100mL Btl IV (23:33)
[2021-04-08] VITALS (14 sets, daily range): BP systolic 149–202; BP diastolic 63–100; PULSE 74–95; RESP 14–98; TEMP 36.6–36.7; O2SAT 90–98; BMI 28.5
[2021-04-08 00:25] LABS: Glucose Point of Care 211 mg/dL (70-110)
--- NOTE | 2021-04-08 01:15 | P.HP_ITS ---
Providers/Chief Complaint Admitting Physician: Mercedes East MD Primary Care Provider: Daniel Mae Chief Complaint: STROKE LIKE SYMP History of Present Illness Katy Noble is a 75 year old female who has previous history of CVA status post left-sided CEA, type 2 diabetes Charcot's foot, no current open wounds who was brought to the ER due to persisting confusion. Patient was last known to be normal on Thursday when a product marketing executive was at her home. She was reportedly at baseline. When her product marketing executive came back on Thursday she noticed that the patient was having altered mental status. She appeared to be confused and disoriented and was brought into the emergency room. Upon first being brought into the ER patient was somnolent, difficult to have a conversation with, however with correction of her blood pressure from systolic 220 down to around 160, she became more awake however she remains disoriented. She is correctly able to tell me her name and the fact that she is at a hospital. Does not remember any events through the week. Last remembers seeing her product marketing executive on Thursday and then EMS today. On asking her how she got here, she has varying answers such as my life alert went off , then calls her product marketing executive by name dhiraj and then later states that the pediatric acute care unit nurse called Aarti. She has some discoloration over her right hand which appears to be a rash. When I asked her how she got it, she states it is from excessive handwashing for hygiene, however later told the nurse that she does not remember why she has the rash and now states that it is painful. States she has been drinking chocolate milk through the week. At this time she has no motor focal deficits. She is complaining of some URI type symptoms in the past 2 weeks states yesterday runny nose, however unclear if this is accurate. Denies any headache photophobia. Complains of back pain w hich is attributed to lumbar surgery in the past, states this was in 2012. Patient does have lumbar hardware as noted on her CAT scan. CT of the head and neck without any acute obstruction or occlusion. CT of the chest abdomen and pelvis without any intracranial abnormalities. U tox positive for benzodiazepines. Blood sugar within range 200s. Troponin series without significant gabino, no changes on EKG acutely, TSH normal 0.6. Upon presentation to the ER her systolic blood pressure was noted to be 220 following which she was started on a nicardipine infusion, currently going at 7.5 mg/h at time of my assessment. Review of Systems General: Reports: 10 or more systems reviewed and unremarkable except in HPI and below Const: Denies: fever(s), chills or body aches Eyes: Denies: change in vision, blurry vision or photophobia ENMT: Reports: hoarseness; Denies: throat pain, enlarged tonsils, odynophagia or nasal congestion Card: Denies: chest pain, palpitations, irregular heart rhythm, edema, swelling of feet/ankles, lightheadedness, pre-syncope, dyspnea on exertion or orthopnea Resp: Denies: dyspnea, productive cough, non-productive cough, wheezing, stridor, pain on inspiration, change in phlegm color, hemoptysis or chest congestion GI: Denies: abdominal pain, nausea, vomiting, hematemesis, coffee ground emesis, dysphagia, heartburn, diarrhea, constipation, GI cramping, change in stool character, hematochezia or melena : Denies: flank pain, difficulty voiding, dysuria, urinary frequency, urinary urgency, urinary hesitancy or hematuria Musc: Denies: neck pain, back pain, extremity pain, joint swelling, joint warmth or deformity Neuro: Denies: headache(s), numbness in extremities, weakness in extremities, sensory changes, difficulty walking, frequent falls, dizziness, vertigo, behavioral changes, Slurred speech present or seizure-like activity Psych: Denies: anxiety, depression, suicidal ideation or homicidal ideation Endo: Denies: polyuria, polydipsia, tired all the time, cold intolerance or hot flashes Toño/Lymph: Denies: easy bruising or easy bleeding Medications/Allergies Home Medications Medication Instructions Recorded Confirmed Last Taken Type Acidophilus 1 tab PO DAILY 05/31/20 04/07/21 04/07/21 History acetaminophen 500 mg PO Q6H PRN 05/31/20 04/07/21 Unknown History baclofen 20 mg PO TID 05/31/20 04/07/21 04/07/21 History clopidogrel [Plavix] 75 mg PO DAILY 05/31/20 04/07/21 04/07/21 History cyanocobalamin (vitamin B-12) 2,500 mcg SUBLINGUAL DAILY 05/31/20 04/07/21 04/07/21 History [Vitamin B-12] diphenhydramine HCl [Benadryl] 25 mg PO Q6H PRN 05/31/20 04/07/21 Unknown H istory docusate sodium 100 mg PO DAILY 05/31/20 04/07/21 04/07/21 History famotidine [Pepcid] 20 mg PO BID 05/31/20 04/07/21 04/07/21 History gabapentin 300 mg PO BEDTIME MDD SEE PHARMACY 05/31/20 04/07/21 04/06/21 History COMMENT hydrocodone-acetaminophen 1 tab PO BID PRN 05/31/20 04/07/21 Unknown History ibuprofen 200 mg PO Q6H PRN 05/31/20 04/07/21 Unknown History metformin 500 mg PO BID 05/31/20 04/07/21 04/07/21 History metoprolol tartrate 25 mg PO BID 05/31/20 04/07/21 04/07/21 History Tresiba FlexTouch U-200 80 unit SUBCUT DAILY 06/05/20 04/07/21 04/07/21 History hydroxyurea 500 mg capsule 500 mg PO EVERY OTHER DAY cap 12/12/20 04/07/21 04/07/21 History sertraline 50 mg tablet 100 mg PO DAILY tab 12/12/20 04/07/21 04/07/21 History amlodipine 5 mg PO DAILY 04/07/21 04/07/21 04/07/21 History atorvastatin 20 mg PO DAILY 04/07/21 04/07/21 04/06/21 History hydralazine 10 mg PO TID 04/07/21 04/07/21 04/07/21 History lisinopril 5 mg PO DAILY 04/07/21 04/07/21 04/07/21 History Allergies Allergy/AdvReac Type Severity Reaction Status Date / Time morphine Allergy Unknown Verified 12/27/20 10:07 Sulfa (Sulfonamide Allergy Unknown Verified 12/27/20 10:07 Antibiotics) PFSH Acute PFSH: Medical History Acute cystitis Acute kidney injury superimposed on chronic kidney disease Aphasia Aspiration pneumonitis Carotid artery disease Carotid artery stenosis Cerebrovascular accident Patient with ongoing aphasia Charcot foot due to diabetes mellitus Chronic kidney disease Coronary artery disease Diabetes Diabetic foot ulcer History of hyperbaric oxygen therapy Hypertension Osteomyelitis PUD (peptic ulcer disease) Sepsis Stroke UTI (urinary tract infection) Surgical History S/P carotid endarterectomy S/P PICC central line placement Patient had tunneled left subclavian central line for IV antibiotics for osteomyelitis which was removed by Dr. Zelaya 2016 Family History Other Family history non-contributory Social History Smoking and tobacco status: never smoked Alcohol intake: never Household members: family Housing: House History of recent travel: No Vitals/I&O/Wt Last Vital Signs Temp 98.1 F 04/08/21 00:47 Pulse 88 04/08/21 00:47 Resp 17 04/08/21 00:47 BP 154/67 04/08/21 00:47 Pulse Ox 94 04/08/21 00:47 04/07/21 04/07/21 04/08/21 14:59 22:59 06:59 Intake Total 1200 / 1200 0 / 1200 Balance 1200 / 1200 0 / 1200 Weight last 48 hrs Weight 92.76 kg Weight 81.647 kg Physical Exam Narrative: EXAM NARRATIVE: General: No acute distress, AO x2, confused , makes varying statements though speech is clear HEENT: PERRLA, pupils bilaterally equal and reactive, pallors not present Chest: Normal vesicular breath sounds, no added sounds, equal good air entry bilaterally CVS: S1-S2 regular, no murmurs, no tachycardia, no gallops, no rubs Abdomen: Soft, nontender, no organomegaly, bowel sounds present Neuro: No focal deficits, no facial deformity, AO x3, power 5/5 in all limbs Urinary Catheter Management^: Rodriguez: Cath Placed During This Visit: yes Reason for Continuing Indwelling Catheter: Other Urinary Catheter Date of Insertion: 04/07/21 Urinary Catheter Time of Insertion: 15:30 Data : 04/07/21 15:50 04/07/21 15:50 Micro: Microbiology 04/07/21 16:51 Blood Culture - Preliminary Blood SPECIMEN COLLECTED 04/07/21 16:45 Blood Culture - Preliminary Blood SPECIMEN COLLECTED A&P Assessment and plan (1) Altered mental status: 75-year-old lady with a past medical history of CVA and carotid stenosis presenting with altered mental status, last noted to be normal on April 02, 2021. Brought to ER today when noted to be confused and altered by her product marketing executive. Patient does not recall events of the week CT head negative for acute stroke Noted to have elevated blood pressure of 220/100 upon arrival, started on a nicardipine infusion in the ER due to concern for hypertensive urgency, currently at 70.5 mg/h, blood pressure now 160/71 at the time of my assessment which is in acceptable reduction. Patient's mentation has improved since better blood pressure control. Diagnosis of PRES remains in the differential. TSH within range. Check ammonia level. No localizing signs or symptoms of infection at this present time however will check UA given patient's past history of urinary tract infections and currently unreliable as to whether or not she has dysuria. U tox positive for opiates. Patient also reports taking hydrocodone at home for her chronic back pain, denies any overdose, however again states that she does not remember if she may have done that. For now we will continue to hold some of her home medications including baclofen, gabapentin, opiates. Will obtain MRI in the morning to evaluate for stroke versus PRES lower suspicion for encephalitis at this time Status: Acute Qualifiers: Altered mental status type: unspecified Qualified Code(s): R41.82 - Altered mental status, unspecified Attestations Medical Necessity Statement*: anticipate >2midnight admission for above defined care Coding Level of Care Code Acute Parts Order And Stock Clerk for Cheri Mace Diagnoses Altered mental status R41.82 Altered mental status type: unspecified
[2021-04-08] MEDS: nicardipine 20 MG/200 ML PREMIX 75 MG IV ×3 (02:00→08:19)
[2021-04-08] MEDS: ketorolac 30 mg/mL INJ 15 MG IVP ×2 (02:07→14:04)
[2021-04-08] MEDS: acetaminophen 1,000 MG/100 ML PIGGYBACK 400 MG IV (02:21)
[2021-04-08] MEDS: sodium chloride 0.9% 1,000 ML 50 ML IV ×2 (02:22→21:35)
[2021-04-08 02:45] LABS: Ammonia 33 umol/L (11-51); Creatine Phosphokinase 34 U/L (26-192)
[2021-04-08] MEDS: ondansetron 2 mg/ML SDV 2 mL 4 MG IVP ×2 (03:57→21:36)
--- NOTE | 2021-04-08 06:34 | PC.NURSE ---
Shift Note Frequent safety and comfort rounds continue. Orders and/or nursing care completed as indicated. Patient monitored for response to intervention and treatment(s). Education provided includes isolation precautions, reportable s/s. Patient and/or shipping services sales representative needs reinforcement with all teaching. Hourly rounding performed, all needs met. Will continue to monitor.
[2021-04-08 06:42] LABS: Glucose Point of Care 202 mg/dL (70-110)
--- NOTE | 2021-04-08 10:26 | PC.CHAP ---
Pastoral Care Encounter/Spiritual Assessment Type of Contact [] Declined warp picker visit [] Patient/Family/Request visit [] Outpatient visit [] Follow-up visit [] Physician referral [] Code/Alert [x] Routine visit [] Staff referral [] Actively dying [] Patient sleeping [] Family support [] [] Out of room [] Palliative care [] [] Receiving care in room [] Pre-surgical visit [] Trauma [] Long length of stay [] ICU visit [] Other:isolated Relational/Emotional Strength [] Patient feels connected with others/family/visitors/staff [] Distress [] Loneliness/isolation [] Abandonment Spirituality of Patient [] Person of Namita [] Attends Mosque of their Namita [] Believes in Prayer [] Reads Bible or Mandaeism materials [] There are Spiritual issues to be addressed Hyperion Analyst Interventions [x] Prayer [] Active listening [] Non-anxious presence [] Spiritual/emotional support [] Crisis/trauma care [] Spiritual counseling [] Bereavement support [] Provided bereavement packet [] Provided Bible/devotional materials [] Provided toy/stuffed animal, coloring book to patient or family member [] Provided Communion [] Anointing/[place] [] Salvation [x] Completed spiritual assessment [] Other: Impact on Illness or Injury [] Angry [] Fearful [] Anxious [] Often cries [] Exhaustion [] Unable to work [] Unable to attend jain [] Unable to walk/stand [] Unable to read [] Unable to drive [] Unable to eat/drink [] Unable to sleep [] Unable to be with family [] Patient intubated [] Other: Summary Time spent with patient
[2021-04-08] MEDS: docusate sodium 100 mg Capsule PO (11:17)
[2021-04-08] MEDS: lisinopril 5 mg Tablet PO (11:18)
[2021-04-08] MEDS: clopidogrel 75 mg Tablet PO (11:18)
[2021-04-08] MEDS: amlodipine 10 mg Tablet PO (11:18)
[2021-04-08] MEDS: metoprolol tartrate 50 mg Tablet 25 MG PO ×2 (11:18→18:00)
[2021-04-08] MEDS: atorvastatin 40 mg Tablet 20 MG PO (11:18)
[2021-04-08] MEDS: magnesium sulfate premix 2 GM/50 ML PIGGYBACK IV (11:19)
--- NOTE | 2021-04-08 12:30 | PC.NURSE ---
Pt Lying in bed with eyes open. Pt very anxious consistently hitting call button. Pt experiencing tremors. Dr. Rodrigues notified. Pt had no c/o pain. Pt c/o being hot, then pt c/o being cold, Pt continued to have tremors and hit the call light every couple minutes. notified. Call light in reach. Will cont to monitor.
[2021-04-08] MEDS: ALPRAZolam 0.5 mg Tablet PO ×2 (14:04→21:05)
[2021-04-08 14:29] LABS: Coronavirus Test Green County Not Detected
--- NOTE | 2021-04-08 14:30 | MR_ITS ---
WS: [id number] MRI BRAIN WITHOUT CONTRAST HISTORY: AMS, confusion COMPARISON: 06/01/[address] 04/07/2021 TECHNIQUE: Diffusion imaging, multiplanar T1, T2 and FLAIR imaging obtained. No evidence for acute infarct or hemorrhage. Zuniga-white matter differentiation is normal. No prior large territory infarcts. There is a remote lacunar infarct in the LEFT thalamus. Smaller la cunar infarct in the LEFT delong radiata. Mild chronic microvascular ischemic changes in periventricu lar white matter and also within the yolanda bilaterally. No hemorrhage. Ventricles and extra-axial spaces are normal. No inferior displacement of cerebellar tonsils. The sella turcica and pituitary gland are unremarkabl e. Dural venous sinuses and poarch of Murphy demonstrate no abnormality on this unenhanced studies. Paranasal sinuses: Clear. Mastoid air cells: Normal. Calvarium and scalp: Intact. MR/MR head wo con* [id number] IMPRESSION: 1. No acute infarct or hemorrhage. 2. Mild chronic microvascular ischemic change in the supratentorial periventric ular white matter and the yolanda bilaterally. Similar to the prior study. 3. Small remote lacunar infarct in the LEFT thalamus and LEFT delong radiata, s table.
[2021-04-08 18:12] LABS: Glucose Point of Care 193 mg/dL (70-110)
--- NOTE | 2021-04-08 18:35 | P.PN_ITS ---
Subjective Subjective: Interval history: Noted to be very anxious today, tremulous. Still somewhat confused, on entering the room, states that the clock is not right, and that it should be 2:30 PM. Asking her why it should be 2:30 PM when the real time is 10:30 AM, could not explain it other than that is just what it should be and states that she had discussed this with her nurse. She otherwise is oriented to her location. She is not entirely sure how she ended up here. Discussed with her urine drug screen with finding of benzodiazepines. She seems to have difficult time understanding the question regarding whether benzodiazepines is something she had been taking. On review of her prior medications, appears that had diazepam for anxiety, 30-day supply prescribed back in December. Unclear whether she had been using these medications recently. Does not drink alcohol. Denies headache. Having some nausea. Denies vomiting. No chest pain or pressure. Vitals/I&O/Wt Last Vital Signs Temp 98.1 F 04/08/21 03:11 Pulse 88 04/08/21 11:10 Resp 15 04/08/21 11:10 BP 149/69 04/08/21 11:10 Pulse Ox 98 04/08/21 11:10 04/08/21 04/08/21 04/08/21 06:59 14:59 22:59 Intake Total 500 / 1700 400 / 400 Output Total 300 / 300 Balance 200 / 1400 400 / 400 Weight last 48 hrs Weight 92.76 kg Weight 81.647 kg Physical Exam Const: COMMON NORMALS: no acute distress and alert GENERAL APPEARANCE: cooperative and anxious ORIENTATION/CONSCIOUSNESS: Yes awake and Yes confused HENMT: COMMON NORMALS: oropharynx normal Neck/C-Spine: COMMON NORMALS: no JVD Resp: COMMON NORMALS: normal respiratory effort and clear to auscultation bilaterally AUSCULTATION: clear to auscultation bilaterally Cardio: COMMON NORMALS: no JVD, regular rhythm, S1 normal heart sound present, S2 normal heart sound present and No murmurs present (Cardio) RHYTHM: regular rhythm HEART SOUNDS: S1 normal heart sound present and S2 normal heart sound present GI: COMMON NORMALS: Normal to inspection, nondistended, normoactive bowel sounds present, Soft to palpation and non-tender PALPATION: Yes Soft to palpation Extremity: COMMON NORMALS: no joint enlargement and no pedal edema Neuro: COMMON NORMALS: moves all extremities SENSORIUM/ORIENTATION: Yes alert Skin: COMMON NORMALS: no rashes or lesions noted GENERAL SKIN EXAM: no rashes or lesions noted Urinary Catheter Management^: Rodriguez: Cath Placed During This Visit: yes Reason for Continuing Indwelling Catheter: Accurate Measurement of Urinary Output in Critically Ill Patients Urinary Catheter Date of Insertion: 04/07/21 Urinary Catheter Time of Insertion: 15:30 Data : 04/07/21 15:50 04/07/21 15:50 Micro: Microbiology 04/07/21 16:51 Blood Culture - Preliminary Blood NEGATIVE TO DATE 04/07/21 16:45 Blood Culture - Preliminary Blood NEGATIVE TO DATE 04/07/21 16:32 Urine Culture - Preliminary Urine,Clean Catch Gram Negative Rods A&P Assessment and plan (1) Altered mental status: Acute encephalopathy, possibly multifactorial, possibly secondary to urinary tract infection. Gram-negative rods growing in urine. Ceftriaxone every 24 hours currently. Follow-up sensitivities. Previously E. coli sensitive to cephalosporins. Possible concomitant metabolic encephalopathy secondary to medications, at home takes baclofen, Benadryl, gabapentin, [place], sertraline as well. Urine tested positive for benzodiazepines, although she cannot seem to recall whether she takes them at home, but did have a prescription for 30-day supply of diazepam back in December. Denies alcohol intake. For now holding possibly offending medications. Due to anxiety and question of possible withdrawal from benzodiazepines started on low-dose Xanax to help with symptoms. Treat UTI. Blood pressures are better, COVID-19 PCR negative. MRI brain with mild chronic microvascular ischemic change in supratentorial periventricular white matter and yolanda bilaterally. Similar to prior study. 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 Stable. Wean off nicardipine. Resumed on home medications. Monitor blood pressures. TSH within range. Check ammonia level. No localizing signs or symptoms of infection at this present time however will check UA given patient's past history of urinary tract infections and currently unreliable as to whether or not she has dysuria. For now we will continue to hold some of her home medications including baclofen, gabapentin, opiates. lower suspicion for encephalitis at this time Status: Acute Qualifiers: Altered mental status type: unspecified Qualified Code(s): R41.82 - Altered mental status, unspecified Attestations Medical Necessity Statement*: Continue admission for assessment management of acute encephalopathy. Coding Level of Care Code Acute Hydrostatic Tubing Tester for Chg Fwd Diagnoses Altered mental status R41.82 Altered mental status type: unspecified
[2021-04-08 20:47] LABS: Glucose Point of Care 215 mg/dL (70-110)
[2021-04-08] MEDS: nicardipine 20 MG/200 ML PREMIX 50 MG IV (21:35)
[2021-04-08] MEDS: cefTRIAXone 1,000 MG in sodium chloride 0.9% (plus) 50 ML 100 MG IV (21:35)
[2021-04-09] VITALS (7 sets, daily range): BP systolic 136–182; BP diastolic 68–111; PULSE 73–105; RESP 14–24; TEMP 36.7–37.1; O2SAT 94–99
[2021-04-09] MEDS: ketorolac 30 mg/mL INJ 15 MG IVP ×2 (00:34→11:53)
[2021-04-09] MEDS: nicardipine 20 MG/200 ML PREMIX 50 MG IV (01:35)
[2021-04-09 01:47] LABS: Glucose Point of Care 204 mg/dL (70-110)
--- NOTE | 2021-04-09 01:50 | PC.NURSE ---
Around 2100: Patients primary contact, Mrs. Miguelangel Montes, called to check on patient. Ok to discuss patient information with Mrs. Montes per patient. Mrs. Montes stated that she was very concerned for her friends safety because she had been acting more and more confused lately and that the patient really liked her pain medications. Around 0145: Patient stated she usually receives 60 Hydrocodone every month for back pain from [facility]. No records found in external medication review.
[2021-04-09 04:16] LABS: Basophils # 0.1 10^3/uL (0.0-0.1); Basophils % 0.7 %; Eosinophils # 0.3 10^3/uL (0.0-0.8); Eosinophils % 2.1 %; Hematocrit 38.3 % (37.0-47.0); Hemoglobin 11.3 g/dL (11.5-15.3); Lymphocytes # 0.9 10^3/uL (0.8-4.8); Lymphocytes % 6.2 %; Mean Corpuscular HGB Conc 29.5 g/dL (30.0-36.0); Mean Corpuscular Hemoglobin 26.5 pg (28.0-34.0); Mean Corpuscular Volume 89.9 fl (81-99); Monocytes # 0.9 10^3/uL (0.2-0.9); Monocytes % 5.9 %; Neutrophils # 12.36 10^3/uL (1.8-7.7); Neutrophils % 82.5 %; Nucleated Red Blood Cells % 0 %; Platelet Count 422 10^3/cmm (130-400); Red Blood Count 4.26 10^6/uL (4.1-5.3); Red Cell Distribution Width 28.5 % (12.1-15.1)
[2021-04-09 04:30] LABS: Magnesium 1.9 mg/dL (1.7-2.3)
[2021-04-09 04:35] LABS: Alanine Aminotransferase 7 U/L (0-33); Albumin Level 3.6 g/dL (3.5-5.2); Alkaline Phosphatase 104 IU/L (35-105); Anion Gap 18.4 (5-19); Aspartate Amino Transferase 10 U/L (0-32); Blood Urea Nitrogen 23 mg/dL (8-23); Calcium 8.9 mg/dL (8.5-10.5); Carbon Dioxide 22 mmol/L (22-29); Chloride 102 mmol/L (98-107); Globulin 2.7 g/dL (1.3-4.6); Glucose 199 mg/dL (65-115); Osmolality Calculated 297 mOsm/kg (285-295); Potassium 3.4 mmol/L (3.5-5.1); Sodium 139 mmol/L (136-145); Total Bilirubin 0.3 mg/dL (0.15-1.2); Total Protein 6.3 g/dL (6.6-8.7)
[2021-04-09 06:57] LABS: Glucose Point of Care 198 mg/dL (70-110)
[2021-04-09] MEDS: lisinopril 5 mg Tablet PO (07:50)
[2021-04-09] MEDS: ALPRAZolam 0.5 mg Tablet PO ×3 (07:50→18:15)
[2021-04-09] MEDS: docusate sodium 100 mg Capsule PO (07:51)
[2021-04-09] MEDS: clopidogrel 75 mg Tablet PO (07:51)
[2021-04-09] MEDS: metoprolol tartrate 50 mg Tablet 25 MG PO ×2 (07:51→18:15)
[2021-04-09] MEDS: amlodipine 10 mg Tablet PO (07:51)
[2021-04-09] MEDS: atorvastatin 40 mg Tablet 20 MG PO (07:52)
--- NOTE | 2021-04-09 09:41 | PC.CHAP ---
Pastoral Care Encounter/Spiritual Assessment Type of Contact [] Declined scorekeeper visit [] Patient/Family/Request visit [] Outpatient visit [] Follow-up visit [] Physician referral [] Code/Alert [x] Routine visit [] Staff referral [] Actively dying [] Patient sleeping [] Family support [] [] Out of room [] Palliative care [] [] Receiving care in room [] Pre-surgical visit [] Trauma [] Long length of stay [] ICU visit [] Other: Relational/Emotional Strength [] Patient feels connected with others/family/visitors/staff [x] Distress [] Loneliness/isolation [] Abandonment Spirituality of Patient [x] Person of Namita [] Attends Adventism of their Namita [] Believes in Prayer [] Reads Bible or Sabianism materials [] There are Spiritual issues to be addressed Pecan Sheller Interventions [x] Prayer [x] Active listening [x] Non-anxious presence [x] Spiritual/emotional support [] Crisis/trauma care [] Spiritual counseling [] Bereavement support [] Provided bereavement packet [] Provided Bible/devotional materials [] Provided toy/stuffed animal, coloring book to patient or family member [] Provided Communion [] Anointing/[place] [] Salvation [] Completed spiritual assessment [] Other: Impact on Illness or Injury [] Angry [] Fearful [] Anxious [] Often cries [] Exhaustion [] Unable to work [] Unable to attend islam [] Unable to walk/stand [] Unable to read [] Unable to drive [] Unable to eat/drink [] Unable to sleep [] Unable to be with family [] Patient intubated [] Other: Summary Pt looked like she felt awful. Pecan Sheller asked if she was feeling ill and she stated yes. Pecan Sheller asked if she did not feel well enough to visit and she stated she did not feel like visiting. Pecan Sheller offered prayer which Pt gladly accepted. Time spent with patient 2 m
--- NOTE | 2021-04-09 09:52 | PC.NURSE ---
Physician orders to give hydrocodone 5-325 TID PRN.
[2021-04-09] MEDS: hydroxyurea 500 mg Capsule PO (10:24)
[2021-04-09] MEDS: HYDROcodone-acetaminophen 5-325 mg Tablet 1 TAB PO ×4 (10:25→20:02)
--- NOTE | 2021-04-09 11:38 | ECG_ITS ---
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 Representative: : 1945 Requested By: Mayito Rodrigues Order Number: [id number] Reading MD: VARUN BAIRD Measurements Intervals [place] Rate: 77 P: 12 RI: 173 QRS: -23 QRSD: 97 T: 63 QT: 429 QTc: 486 Interpretive Statements SINUS RHYTHM WITH OCCASIONAL VENTRICULAR PREMATURE COMPLEXES WITH OCCASIONAL SUPRAVENTRICULAR PREMATURE COMPLEXES BORDERLINE LEFT AXIS DEVIATION [QRS AXIS < -20] VOLTAGE CRITERIA FOR LVH [MEETS CRITERIA IN ONE OF: R(aVL), S(V1), R(V5), R(V5/V6)+S(V1)] NONSPECIFIC T-WAVE ABNORMALITY Compared to ECG 04/08/2021 01:09:02 T-wave abnormality now present ST (T wave) deviation no longer present Myocardial infarct finding no longer present Electronically Signed On 04-09-2021 19:58:24 ROOMING HOUSE INSPECTOR by VARUN BAIRD [id number]
--- NOTE | 2021-04-09 15:05 | P.PN_ITS ---
Subjective Subjective: Interval history: She is oriented x3 today, more lucid, however, still recurrent episodes of anxiety, tremulousness, although not during my visit. Reported to be recurrently yawning by nursing staff. Reports of neighbor stating that she takes hydrocodone frequently. Sometimes unknown person visiting the house. Vitals/I&O/Wt Last Vital Signs Temp 98.8 F 04/09/21 10:05 Pulse 73 04/09/21 10:05 Resp 14 04/09/21 10:05 BP 136/68 04/09/21 10:05 Pulse Ox 97 04/09/21 10:05 04/09/21 04/09/21 04/09/21 06:59 14:59 22:59 Intake Total 320 / 1830.833 330.5 / 330.5 Output Total 400 / 2300 Balance -80 / -469.167 330.5 / 330.5 Weight last 48 hrs Weight 92.76 kg Weight 81.647 kg Physical Exam Const: COMMON NORMALS: no acute distress and alert GENERAL APPEARANCE: cooperative and anxious ORIENTATION/CONSCIOUSNESS: Yes awake HENMT: COMMON NORMALS: oropharynx normal Neck/C-Spine: COMMON NORMALS: no JVD Resp: COMMON NORMALS: normal respiratory effort and clear to auscultation bilaterally AUSCULTATION: clear to auscultation bilaterally Cardio: COMMON NORMALS: no JVD, regular rhythm, S1 normal heart sound present, S2 normal heart sound present and No murmurs present (Cardio) RHYTHM: regular rhythm HEART SOUNDS: S1 normal heart sound present and S2 normal heart sound present GI: COMMON NORMALS: Normal to inspection, nondistended, normoactive bowel sounds present, Soft to palpation and non-tender PALPATION: Yes Soft to palpation Extremity: COMMON NORMALS: no joint enlargement and no pedal edema Neuro: COMMON NORMALS: moves all extremities SENSORIUM/ORIENTATION: Yes alert Skin: COMMON NORMALS: no rashes or lesions noted GENERAL SKIN EXAM: no rashes or lesions noted Urinary Catheter Management^: Rodriguez: Cath Placed During This Visit: yes Reason for Continuing Indwelling Catheter: Accurate Measurement of Urinary Output in Critically Ill Patients Urinary Catheter Date of Insertion: 04/07/21 Urinary Catheter Time of Insertion: 15:30 Data : 04/09/21 03:38 04/09/21 03:38 Micro: Microbiology 04/07/21 16:51 Blood Culture - Preliminary Blood NEGATIVE TO DATE 04/07/21 16:45 Blood Culture - Preliminary Blood NEGATIVE TO DATE A&P Assessment and plan (1) Altered mental status: She is more lucid, but persistent/recurrent anxiety, tremulousness. Discussed with her possible withdrawal. Discussed with her positive benzodiazepine in urine. She denies knowledge of how it may have gotten there. Reports of her taking hydrocodone frequently at home from neighbor, unknown person coming to the house. Unclear how much and what medication she actually takes. She does states she takes hydrocodone and baclofen. Reports has been taking them for a long time close to 12 years. Discussed concerns that specifically opioids but also baclofen can have concern symptoms with accumulation or withdrawal. Given anxiety, tremulous, yawning, possible. Withdrawal. Restarted on hydrocodone, giving additional dose. Monitor symptoms, will adjust depending on progress. Resume gabapentin. Baclofen at lower dose BID. Sertraline at lower dose. Continue Xanax also as needed for anxiety. Continue supportive care. She appears to be overall gradually improving. Long-term discussed showed if possible try to wean off high risk medications. Acute encephalopathy, possibly multifactorial, possibly secondary to urinary tract infection. Gram-negative rods growing in urine. Ceftriaxone every 24 hours currently. Follow-up sensitivities. Previously E. coli sensitive to cephalosporins. Possible concomitant metabolic encephalopathy secondary to medications, at home takes baclofen, Benadryl, gabapentin, [place], sertraline as well. Urine tested positive for benzodiazepines, although denies use of benzodiazepine at home, but did have a prescription for 30-day supply of diazepam back in December. Denies alcohol intake. Treat UTI. Blood pressures are better, although did have an episode of systolic blood pressure 200 overnight and was restarted on nicardipine drip. Drip disconti nued. Blood pressure better with treatment of withdrawal. Add as needed hydralazine. COVID-19 PCR negative. MRI brain with mild chronic microvascular ischemic change in supratentorial periventricular white matter and yolanda bilaterally. Similar to prior study. 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 Stable. TSH within range. Ammonia normal. Lower suspicion for encephalitis at this time Status: Acute Qualifiers: Altered mental status type: unspecified Qualified Code(s): R41.82 - Altered mental status, unspecified Attestations Medical Necessity Statement*: Continue admission for assessment of management of acute encephalopathy, possible withdrawal from unknown medication, UTI. Coding Level of Care Code Acute Consulting Services Associate for [facility] Fwd Exam Comprehensive Diagnoses Altered mental status R41.82 Altered mental status type: unspecified
[2021-04-09] MEDS: hyDRALAzine 20 mg/mL INJ 1 mL 5 MG IVP ×2 (15:16→18:39)
[2021-04-09] MEDS: calcium carbonate 500 mg Chew Tablet PO (15:43)
[2021-04-09] MEDS: potassium chloride ER 20 mEq Tablet PO (15:44)
[2021-04-09] MEDS: baclofen 10 mg Tablet PO (18:15)
[2021-04-09] MEDS: cefTRIAXone 1,000 MG in sodium chloride 0.9% (plus) 50 ML 100 MG IV (18:15)
--- NOTE | 2021-04-09 18:29 | PC.NURSE ---
Reported to physician regarding blood pressure of 198/104. Physician ordered to give 5mg hydralazine NOW.
[2021-04-09] MEDS: ondansetron 2 mg/ML SDV 2 mL 4 MG IVP (20:19)
[2021-04-09] MEDS: gabapentin 300 mg Capsule PO (20:20)
[2021-04-09] MEDS: hyDRALAzine 25 mg Tablet PO (20:21)
[2021-04-09 22:52] LABS: Glucose Point of Care 254 mg/dL (70-110)
[2021-04-10] VITALS (11 sets, daily range): BP systolic 134–192; BP diastolic 61–88; PULSE 69–87; RESP 16–20; TEMP 36.3–36.6; O2SAT 94–98
[2021-04-10] MEDS: calcium carbonate 500 mg Chew Tablet PO (00:16)
[2021-04-10] MEDS: ketorolac 30 mg/mL INJ 15 MG IVP ×2 (00:25→12:05)
[2021-04-10] MEDS: hyDRALAzine 20 mg/mL INJ 1 mL 5 MG IVP (02:01)
[2021-04-10 02:11] LABS: Glucose Point of Care 242 mg/dL (70-110)
[2021-04-10 04:18] LABS: Basophils # 0.1 10^3/uL (0.0-0.1); Basophils % 0.5 %; Eosinophils # 0.3 10^3/uL (0.0-0.8); Eosinophils % 1.5 %; Hematocrit 37.7 % (37.0-47.0); Hemoglobin 11.4 g/dL (11.5-15.3); Lymphocytes # 0.9 10^3/uL (0.8-4.8); Lymphocytes % 5.3 %; Mean Corpuscular HGB Conc 30.2 g/dL (30.0-36.0); Mean Corpuscular Hemoglobin 26.5 pg (28.0-34.0); Mean Corpuscular Volume 87.7 fl (81-99); Monocytes # 0.9 10^3/uL (0.2-0.9); Monocytes % 5.3 %; Neutrophils # 14.43 10^3/uL (1.8-7.7); Nucleated Red Blood Cells % 0 %; Platelet Count 456 10^3/cmm (130-400); Red Cell Distribution Width 29.3 % (12.1-15.1)
[2021-04-10 06:52] LABS: Alanine Aminotransferase 6 U/L (0-33); Albumin Level 3.5 g/dL (3.5-5.2); Alkaline Phosphatase 99 IU/L (35-105); Anion Gap 18.9 (5-19); Aspartate Amino Transferase 10 U/L (0-32); Blood Urea Nitrogen 30 mg/dL (8-23); Calcium 9.1 mg/dL (8.5-10.5); Carbon Dioxide 20 mmol/L (22-29); Chloride 103 mmol/L (98-107); Globulin 2.7 g/dL (1.3-4.6); Glucose 226 mg/dL (65-115); Magnesium 1.7 mg/dL (1.7-2.3); Osmolality Calculated 299 mOsm/kg (285-295); Potassium 3.9 mmol/L (3.5-5.1); Sodium 138 mmol/L (136-145); Total Bilirubin 0.2 mg/dL (0.15-1.2); Total Protein 6.2 g/dL (6.6-8.7)
[2021-04-10 07:19] LABS: Glucose Point of Care 243 mg/dL (70-110)
[2021-04-10] MEDS: baclofen 10 mg Tablet PO ×2 (08:26→17:50)
[2021-04-10] MEDS: clopidogrel 75 mg Tablet PO (08:26)
[2021-04-10] MEDS: amlodipine 10 mg Tablet PO (08:26)
[2021-04-10] MEDS: docusate sodium 100 mg Capsule PO (08:26)
[2021-04-10] MEDS: atorvastatin 40 mg Tablet 20 MG PO (08:26)
[2021-04-10] MEDS: metoprolol tartrate 50 mg Tablet 25 MG PO ×2 (08:26→17:50)
[2021-04-10] MEDS: sertraline 50 mg Tablet PO (08:26)
[2021-04-10] MEDS: lisinopril 5 mg Tablet 10 MG PO (08:26)
[2021-04-10] MEDS: hyDRALAzine 25 mg Tablet PO ×2 (08:26→15:34)
--- NOTE | 2021-04-10 09:36 | PC.SOCIAL ---
Pg 2 IMM Explained to pt Pg 2 IMM. No questions voiced. Provided pt a copy. Initialed, dated, & timed a copy & placed in chart.
--- NOTE | 2021-04-10 10:26 | PC.NURSE ---
report given to kelsey on 2nd floor .ransferred to room 252-1 via w/c at 1017
[2021-04-10 11:44] LABS: Glucose Point of Care 294 mg/dL (70-110)
[2021-04-10] MEDS: insulin lispro 100 unit/1 mL SUBCUT ×3 (12:04→21:54)
--- NOTE | 2021-04-10 15:14 | PM.PN ---
Subjective Subjective: Interval history: An episode of tremulousness and anxiety last night. Feels like she had been run over. But otherwise asking about getting up and getting around more. Eager to be assessed by physical therapy. Vitals/I&O/Wt Last Vital Signs Temp 97.5 F L 04/10/21 10:44 Pulse 76 04/10/21 10:44 Resp 17 04/10/21 10:44 BP 190/71 04/10/21 10:44 Pulse Ox 96 04/10/21 10:44 04/10/21 04/10/21 04/10/21 06:59 14:59 22:59 Intake Total 200 / 1680.5 480 / 480 Output Total 450 / 1157 Balance -250 / 523.5 480 / 480 Physical Exam Narrative: EXAM NARRATIVE: Sitting up in chair. Const: COMMON NORMALS: no acute distress and alert GENERAL APPEARANCE: cooperative and anxious ORIENTATION/CONSCIOUSNESS: Yes awake HENMT: COMMON NORMALS: oropharynx normal Neck/C-Spine: COMMON NORMALS: no JVD Resp: COMMON NORMALS: normal respiratory effort and clear to auscultation bilaterally AUSCULTATION: clear to auscultation bilaterally Cardio: COMMON NORMALS: no JVD, regular rhythm, S1 normal heart sound present, S2 normal heart sound present and No murmurs present (Cardio) RHYTHM: regular rhythm HEART SOUNDS: S1 normal heart sound present and S2 normal heart sound present GI: COMMON NORMALS: Normal to inspection, nondistended, normoactive bowel sounds present, Soft to palpation and non-tender PALPATION: Yes Soft to palpation Extremity: COMMON NORMALS: no joint enlargement and no pedal edema Neuro: COMMON NORMALS: moves all extremities SENSORIUM/ORIENTATION: Yes alert Skin: COMMON NORMALS: no rashes or lesions noted GENERAL SKIN EXAM: no rashes or lesions noted Urinary Catheter Management^: Rodriguez: Cath Placed During This Visit: yes Reason for Continuing Indwelling Catheter: Accurate Measurement of Urinary Output in Critically Ill Patients Urinary Catheter Date of Insertion: 04/07/21 Urinary Catheter Time of Insertion: 15:30 Data : 04/10/21 03:00 04/10/21 06:26 Micro: Microbiology 04/07/21 16:32 Urine Culture - Final Urine,Clean Catch Escherichia coli A&P Assessment and plan (1) Altered mental status: Gradually improving, and yesterday still with episodes of anxiety, required Ativan IV. Discussed with her we resumed low-dose sertraline, gabapentin, baclofen as needed. Continue hydrocodone. States takes hydrocodone twice daily at home. We will request PT, OT assessment. Mobilize. Continue treatment of UTI. She has been denying benzodiazepine intake. She will be discussing with her primary provider to attempt to wean off where possible. Long-term discussed showed if possible try to wean off high risk medications. Acute encephalopathy, possibly multifactorial, possibly secondary to urinary tract infection. E. coli in urine. Ceftriaxone every 24 hours currently. Follow-up sensitivities. Previously E. coli sensitive to cephalosporins. Possible concomitant metabolic encephalopathy secondary to medications, at home takes baclofen, Benadryl, gabapentin, [place], sertraline as well. Urine tested positive for benzodiazepines, although denies use of benzodiazepine at home, but did have a prescription for 30-day supply of diazepam back in December. Denies alcohol intake. Continue to optimize blood pressure control. COVID-19 PCR negative. MRI brain with mild chronic microvascular ischemic change in supratentorial periventricular white matter and yolanda bilaterally. Similar to prior study. 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 Stable. TSH within range. Ammonia normal. Lower suspicion for encephalitis at this time Status: Acute Qualifiers: Altered mental status type: unspecified Qualified Code(s): R41.82 - Altered mental status, unspecified (2) Hypertensive urgency: Weaned off nicardipine drip. Required multiple hydralazine IV doses yesterday, overnight started on hydralazine p.o. and dose of lisinopril increased. Continue amlodipine, metoprolol. Stop IV fluid. Continue supportive care for anxiety, encephalopathy. Status: Acute (3) Leukocytosis: Rising leukocytosis, UTI is due to glasses of double to ceftriaxone. Continue antibiotic. Check chest x-ray. Status: Acute (4) UTI (urinary tract infection): E. coli sensitive to Rocephin. Continue treatment. Status: Acute Qualifiers: Hematuria presence: without hematuria Urinary tract infection type: acute cystitis Qualified Code(s): N30.00 - Acute cystitis without hematuria Attestations Medical Necessity Statement*: Continue admission for assessment management of acute encephalopathy, optimization of blood pressure control, treatment of UTI, additional assessment due to rising leukocytosis. Coding Level of Care Code Acute Landscape Specialist for Cheri Fwd Diagnoses Altered mental status R41.82 Altered mental status type: unspecified Hypertensive urgency I16.0 Leukocytosis D72.829 UTI (urinary tract infection) N30.00 Hematuria presence: without hematuria Urinary tract infection type: acute cystitis
[2021-04-10] MEDS: HYDROcodone-acetaminophen 5-325 mg Tablet 1 TAB PO (15:38)
--- NOTE | 2021-04-10 15:58 | PC.OT ---
Attempted occupational therapy evaluation. Nursing present, patient blood pressure 192/78 upon therapist arrival. Therapy to hold until blood pressure regulates.
[2021-04-10 16:37] LABS: Glucose Point of Care 189 mg/dL (70-110)
[2021-04-10] MEDS: cefTRIAXone 1,000 MG in sodium chloride 0.9% (plus) 50 ML 100 MG IV (18:03)
[2021-04-10] MEDS: gabapentin 300 mg Capsule PO (20:37)
[2021-04-10 21:43] LABS: Glucose Point of Care 175 mg/dL (70-110)
[2021-04-10] MEDS: hyDRALAzine 10 mg Tablet PO (22:44)
[2021-04-11] VITALS (9 sets, daily range): BP systolic 152–189; BP diastolic 68–80; PULSE 80–95; RESP 16–18; TEMP 36.7–36.9; O2SAT 94–98
[2021-04-11] MEDS: HYDROcodone-acetaminophen 5-325 mg Tablet 1 TAB PO ×3 (03:49→23:08)
[2021-04-11 05:25] LABS: Basophils # 0.1 10^3/uL (0.0-0.1); Basophils % 0.5 %; Eosinophils # 0.3 10^3/uL (0.0-0.8); Eosinophils % 2.6 %; Hematocrit 33.2 % (37.0-47.0); Lymphocytes # 0.7 10^3/uL (0.8-4.8); Lymphocytes % 5.6 %; Mean Corpuscular HGB Conc 30.1 g/dL (30.0-36.0); Mean Corpuscular Volume 89.5 fl (81-99); Mean Platelet Volume 10.8 fL (7.4-10.4); Monocytes # 0.7 10^3/uL (0.2-0.9); Neutrophils # 10.87 10^3/uL (1.8-7.7); Nucleated Red Blood Cells % 0 %; Platelet Count 438 10^3/cmm (130-400); Red Blood Count 3.71 10^6/uL (4.1-5.3); Red Cell Distribution Width 29.3 % (12.1-15.1); White Blood Count 13.1 10^3/uL (4.0-10.0)
[2021-04-11 05:52] LABS: Magnesium 1.9 mg/dL (1.7-2.3)
[2021-04-11 05:53] LABS: Alanine Aminotransferase < 5 U/L (0-33); Albumin Level 3.1 g/dL (3.5-5.2); Alkaline Phosphatase 85 IU/L (35-105); Anion Gap 16.6 (5-19); Aspartate Amino Transferase 8 U/L (0-32); Blood Urea Nitrogen 32 mg/dL (8-23); Calcium 8.5 mg/dL (8.5-10.5); Carbon Dioxide 20 mmol/L (22-29); Chloride 105 mmol/L (98-107); Globulin 2.5 g/dL (1.3-4.6); Glucose 154 mg/dL (65-115); Osmolality Calculated 296 mOsm/kg (285-295); Potassium 3.6 mmol/L (3.5-5.1); Sodium 138 mmol/L (136-145); Total Bilirubin 0.2 mg/dL (0.15-1.2); Total Protein 5.6 g/dL (6.6-8.7)
--- NOTE | 2021-04-11 06:00 | XR_ITS ---
WS: [id number] Exam: XR chest 1V portable [id number] Date/Time of Exam: 04/11/2021 5:28 AM Reason For Exam: Hypoxia Comparison 04/07/2021. The lungs are clear. No pneumothorax. Cardiomediastinal silhouette is unremarkable for technique. Mil d plaque atelectasis in the lingula. No pleural effusions. XR/XR chest 1V portable [id number] IMPRESSION: 1. No acute cardiopulmonary finding. No change.
[2021-04-11 07:49] LABS: Glucose Point of Care 175 mg/dL (70-110)
[2021-04-11] MEDS: insulin lispro 100 unit/1 mL SUBCUT ×3 (08:27→22:32)
[2021-04-11] MEDS: hydroxyurea 500 mg Capsule PO (08:28)
[2021-04-11] MEDS: metoprolol tartrate 50 mg Tablet 25 MG PO ×2 (08:28→18:20)
[2021-04-11] MEDS: clopidogrel 75 mg Tablet PO (08:28)
[2021-04-11] MEDS: atorvastatin 40 mg Tablet 20 MG PO (08:28)
[2021-04-11] MEDS: docusate sodium 100 mg Capsule PO (08:28)
[2021-04-11] MEDS: baclofen 10 mg Tablet PO ×2 (08:28→18:20)
[2021-04-11] MEDS: amlodipine 10 mg Tablet PO (08:28)
[2021-04-11] MEDS: sertraline 50 mg Tablet PO (08:28)
[2021-04-11] MEDS: lisinopril 5 mg Tablet 10 MG PO (08:28)
[2021-04-11] MEDS: hyDRALAzine 10 mg Tablet PO ×3 (08:29→21:13)
[2021-04-11] MEDS: acetaminophen 325 mg Tablet 650 MG PO (13:50)
--- NOTE | 2021-04-11 15:53 | PM.PN ---
Subjective Subjective: Interval history: She is overall feeling better. She is not quite as anxious, not tremulous. However, very weak, worked with PT, but when tried to stand up at the bedside, needed assistance. Vitals/I&O/Wt Last Vital Signs Temp 98.2 F 04/11/21 12:00 Pulse 88 04/11/21 14:01 Resp 18 04/11/21 12:00 BP 174/72 04/11/21 12:00 Pulse Ox 98 04/11/21 12:00 04/11/21 04/11/21 04/11/21 06:59 14:59 22:59 Intake Total 240 / 1182 320 / 320 Output Total 600 / 1125 Balance -360 / 57 320 / 320 Physical Exam Narrative: EXAM NARRATIVE: Sitting up in bed. Const: COMMON NORMALS: no acute distress and alert GENERAL APPEARANCE: cooperative and comfortable ORIENTATION/CONSCIOUSNESS: Yes awake HENMT: COMMON NORMALS: oropharynx normal Neck/C-Spine: COMMON NORMALS: no JVD Resp: COMMON NORMALS: normal respiratory effort and clear to auscultation bilaterally AUSCULTATION: clear to auscultation bilaterally Cardio: COMMON NORMALS: no JVD, regular rhythm, S1 normal heart sound present, S2 normal heart sound present and No murmurs present (Cardio) RHYTHM: regular rhythm HEART SOUNDS: S1 normal heart sound present and S2 normal heart sound present GI: COMMON NORMALS: Normal to inspection, nondistended, normoactive bowel sounds present, Soft to palpation and non-tender PALPATION: Yes Soft to palpation Extremity: COMMON NORMALS: no joint enlargement and no pedal edema Neuro: COMMON NORMALS: moves all extremities SENSORIUM/ORIENTATION: Yes alert Skin: COMMON NORMALS: no rashes or lesions noted GENERAL SKIN EXAM: no rashes or lesions noted Urinary Catheter Management^: Rodriguez: Cath Placed During This Visit: yes Reason for Continuing Indwelling Catheter: Accurate Measurement of Urinary Output in Critically Ill Patients Urinary Catheter Date of Insertion: 04/07/21 Urinary Catheter Time of Insertion: 15:30 Data : 04/11/21 04:47 04/11/21 04:47 A&P Assessment and plan (1) Altered mental status: Improving. Episodes of anxiety, tremulousness resolving. Very deconditioned, worked with PT in bed, but trying to stand up states required assistance, states could not walk due to generalized weakness. At this time continue current medication regimen. We will not change any further for now. Continue mobilization, PT, OT assessment. Disposition planning, discussed with her given generalized weakness, functional decline, would likely benefit from rehabilitation at half-way facility. She is working with case management. Low-dose sertraline, gabapentin, baclofen as needed. Continue hydrocodone. States takes hydrocodone twice daily at home. Continue treatment of UTI. She has been denying benzodiazepine intake. She will be discussing with her primary provider to attempt to wean off where possible. Long-term discussed showed if possible try to wean off high risk medications. Acute encephalopathy, possibly multifactorial, possibly secondary to urinary tract infection. E. coli in urine. Ceftriaxone every 24 hours currently. Follow-up sensitivities. Previously E. coli sensitive to cephalosporins. Possible concomitant metabolic encephalopathy secondary to medications, at home takes baclofen, Benadryl, gabapentin, [place], sertraline as well. Urine tested positive for benzodiazepines, although denies use of benzodiazepine at home, but did have a prescription for 30-day supply of diazepam back in December. Denies alcohol intake. Continue to optimize blood pressure control. COVID-19 PCR negative. MRI brain with mild chronic microvascular ischemic change in supratentorial periventricular white matter and yolanda bilaterally. Similar to prior study. 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 Stable. TSH within range. Ammonia normal. Lower suspicion for encephalitis at this time Status: Acute Qualifiers: Altered mental status type: unspecified Qualified Code(s): R41.82 - Altered mental status, unspecified (2) Hypertensive urgency: Blood pressures a little bit better, but still intermittently hypertensive. Amlodipine 10 mg. Metoprolol 25 mg. Lisinopril 10 mg daily. Hydralazine was decreased to 10 mg 3 times daily last night. Continue the same regimen for now, will adjust depending on response. Encephalopathy and anxiety are improving. Dissipate improvement in blood pressure as well. Status: Acute (3) Leukocytosis: Rising leukocytosis, UTI is due to glasses of double to ceftriaxone. Continue antibiotic. Check chest x-ray. Status: Acute (4) UTI (urinary tract infection): E. coli sensitive to Rocephin. Continue treatment. Status: Acute Qualifiers: Hematuria presence: without hematuria Urinary tract infection type: acute cystitis Qualified Code(s): N30.00 - Acute cystitis without hematuria Attestations Medical Necessity Statement*: Continue pressure versus management of improving acute encephalopathy, optimization of control of poorly controlled hypertension, further assessment of physical deconditioning and disposition planning and arrangements. Coding Level of Care Code Acute [employer] for [facility] Fwd Diagnoses Altered mental status R41.82 Altered mental status type: unspecified Hypertensive urgency I16.0 Leukocytosis D72.829 UTI (urinary tract infection) N30.00 Hematuria presence: without hematuria Urinary tract infection type: acute cystitis
[2021-04-11 18:04] LABS: Glucose Point of Care 227 mg/dL (70-110)
[2021-04-11] MEDS: cefTRIAXone 1,000 MG in sodium chloride 0.9% (plus) 50 ML 100 MG IV (18:20)
[2021-04-11] MEDS: calcium carbonate 500 mg Chew Tablet PO (21:12)
[2021-04-11] MEDS: gabapentin 300 mg Capsule PO (21:13)
[2021-04-11 22:19] LABS: Glucose Point of Care 158 mg/dL (70-110)
[2021-04-12] VITALS (7 sets, daily range): BP systolic 145–208; BP diastolic 66–91; PULSE 72–103; RESP 16–21; TEMP 36.6–37.1; O2SAT 93–96
[2021-04-12 06:41] LABS: Basophils # 0.1 10^3/uL (0.0-0.1); Basophils % 0.5 %; Eosinophils # 0.4 10^3/uL (0.0-0.8); Eosinophils % 3.2 %; Hemoglobin 10.6 g/dL (11.5-15.3); Lymphocytes # 0.8 10^3/uL (0.8-4.8); Lymphocytes % 6.6 %; Mean Corpuscular HGB Conc 30.3 g/dL (30.0-36.0); Mean Corpuscular Volume 89.1 fl (81-99); Mean Platelet Volume 11.2 fL (7.4-10.4); Monocytes # 0.7 10^3/uL (0.2-0.9); Monocytes % 5.3 %; Neutrophils # 10.48 10^3/uL (1.8-7.7); Neutrophils % 83.3 %; Nucleated Red Blood Cells % 0 %; Platelet Count 514 10^3/cmm (130-400); Red Blood Count 3.93 10^6/uL (4.1-5.3); Red Cell Distribution Width 29.7 % (12.1-15.1); White Blood Count 12.6 10^3/uL (4.0-10.0)
[2021-04-12 07:08] LABS: Glucose Point of Care 152 mg/dL (70-110)
[2021-04-12 07:13] LABS: Alanine Aminotransferase < 5 U/L (0-33); Albumin Level 3.1 g/dL (3.5-5.2); Alkaline Phosphatase 90 IU/L (35-105); Anion Gap 12.9 (5-19); Aspartate Amino Transferase 8 U/L (0-32); Blood Urea Nitrogen 29 mg/dL (8-23); Calcium 8.6 mg/dL (8.5-10.5); Carbon Dioxide 24 mmol/L (22-29); Chloride 103 mmol/L (98-107); Globulin 2.4 g/dL (1.3-4.6); Glucose 148 mg/dL (65-115); Osmolality Calculated 291 mOsm/kg (285-295); Potassium 3.9 mmol/L (3.5-5.1); Sodium 136 mmol/L (136-145); Total Bilirubin 0.2 mg/dL (0.15-1.2); Total Protein 5.5 g/dL (6.6-8.7)
[2021-04-12] MEDS: atorvastatin 40 mg Tablet 20 MG PO (08:50)
[2021-04-12] MEDS: clopidogrel 75 mg Tablet PO (08:50)
[2021-04-12] MEDS: famotidine 20 mg Tablet PO ×2 (08:51→22:16)
[2021-04-12] MEDS: docusate sodium 100 mg Capsule PO (08:51)
[2021-04-12] MEDS: sertraline 50 mg Tablet PO (08:51)
[2021-04-12] MEDS: baclofen 10 mg Tablet PO ×2 (08:51→17:17)
[2021-04-12] MEDS: insulin lispro 100 unit/1 mL SUBCUT ×4 (08:52→21:37)
[2021-04-12] MEDS: metoprolol tartrate 50 mg Tablet 25 MG PO ×2 (09:20→17:17)
[2021-04-12] MEDS: lisinopril 5 mg Tablet 10 MG PO (09:20)
[2021-04-12 12:15] LABS: Glucose Point of Care 220 mg/dL (70-110)
--- NOTE | 2021-04-12 12:47 | PC.SOCIAL ---
IMM Update pg 2 of IMM updated and reviewed w/ patient. Copy provided.
--- NOTE | 2021-04-12 13:45 | PC.CHAP ---
Pastoral Care Encounter/Spiritual Assessment Type of Contact [] Declined sales service manager visit [] Patient/Family/Request visit [] Outpatient visit [xx] Follow-up visit [] Physician referral [] Code/Alert [] Routine visit [] Staff referral [] Actively dying [xx] Patient sleeping [] Family support [] [] Out of room [] Palliative care [] [] Receiving care in room [] Pre-surgical visit [] Trauma [xx] Long length of stay [] ICU visit [] Other: Relational/Emotional Strength [] Patient feels connected with others/family/visitors/staff [] Distress [] Loneliness/isolation [] Abandonment Spirituality of Patient [] Person of Namita [] Attends Caodaism of their Namita [] Believes in Prayer [] Reads Bible or Orthodox materials [] There are Spiritual issues to be addressed Staff Psychiatrist Interventions [] Prayer [] Active listening [] Non-anxious presence [] Spiritual/emotional support [] Crisis/trauma care [] Spiritual counseling [] Bereavement support [] Provided bereavement packet [] Provided Bible/devotional materials [] Provided toy/stuffed animal, coloring book to patient or family member [] Provided Communion [] Anointing/[place] [] Salvation [] Completed spiritual assessment [] Other: Impact on Illness or Injury [] Angry [] Fearful [] Anxious [] Often cries [] Exhaustion [] Unable to work [] Unable to attend bahai [] Unable to walk/stand [] Unable to read [] Unable to drive [] Unable to eat/drink [] Unable to sleep [] Unable to be with family [] Patient intubated [] Other: Summary Patient was sleeping very soundly. Follow up later Time spent with patient
[2021-04-12] MEDS: hyDRALAzine 10 mg Tablet PO ×2 (15:59→20:55)
[2021-04-12] MEDS: acetaminophen 325 mg Tablet 650 MG PO (16:38)
[2021-04-12 17:15] LABS: Glucose Point of Care 191 mg/dL (70-110)
--- NOTE | 2021-04-12 17:20 | PC.NURSE ---
Patient refusing to have catheter removed at this time and explained risks of continuing catheter, verbalized understanding. notified.
--- NOTE | 2021-04-12 18:08 | PM.PN ---
Subjective Subjective: Interval history: She feels her overall condition continues to improve. Anxiety has been much better. No further episodes of tremulousness. Today noted to have low blood pressure with standing up with PT, could not ambulate due to decrease. Session had to be cut short. Morning amlodipine and hydralazine doses held. Subsequently hydralazine continued with again noted elevated blood pressures. Vitals/I&O/Wt Last Vital Signs Temp 98.6 F 04/12/21 15:20 Pulse 86 04/12/21 15:20 Resp 18 04/12/21 15:20 BP 187/82 04/12/21 15:20 Pulse Ox 95 04/12/21 15:20 04/12/21 04/12/21 04/12/21 06:59 14:59 22:59 Intake Total 240 / 240 Output Total 500 / 1000 Balance -500 / -390 240 / 240 Physical Exam Narrative: EXAM NARRATIVE: In bed. Const: COMMON NORMALS: no acute distress and alert GENERAL APPEARANCE: cooperative and comfortable ORIENTATION/CONSCIOUSNESS: Yes awake HENMT: COMMON NORMALS: oropharynx normal Neck/C-Spine: COMMON NORMALS: no JVD Resp: COMMON NORMALS: normal respiratory effort and clear to auscultation bilaterally AUSCULTATION: clear to auscultation bilaterally Cardio: COMMON NORMALS: no JVD, regular rhythm, S1 normal heart sound present, S2 normal heart sound present and No murmurs present (Cardio) RHYTHM: regular rhythm HEART SOUNDS: S1 normal heart sound present and S2 normal heart sound present GI: COMMON NORMALS: Normal to inspection, nondistended, normoactive bowel sounds present, Soft to palpation and non-tender PALPATION: Yes Soft to palpation Extremity: COMMON NORMALS: no joint enlargement and no pedal edema Neuro: COMMON NORMALS: moves all extremities SENSORIUM/ORIENTATION: Yes alert Skin: COMMON NORMALS: no rashes or lesions noted GENERAL SKIN EXAM: no rashes or lesions noted Urinary Catheter Management^: Rodriguez: Cath Placed During This Visit: yes Reason for Continuing Indwelling Catheter: Other Urinary Catheter Date of Insertion: 04/07/21 Urinary Catheter Time of Insertion: 15:30 Data : 04/12/21 05:01 04/12/21 05:01 Micro: Microbiology 04/07/21 16:51 Blood Culture - Final Blood NO GROWTH AFTER 5 DAYS 04/07/21 16:45 Blood Culture - Final Blood NO GROWTH AFTER 5 DAYS A&P Assessment and plan (1) Orthostatic hypotension: Quite significant decrease in blood pressure on standing limiting ability to ambulate today. Morning dose of amlodipine, hydralazine held. Subsequently again hypertensive per vital sign assessments. Will obtain orthostatic blood pressures. Status: Acute (2) Altered mental status: Resolving/resolved encephalopathy. She remains awake, alert, pleasant, cooperative. Significant functional limitation currently due to orthostasis with otherwise elevated blood pressures, assess additionally as above. Low-dose sertraline, gabapentin, baclofen as needed. Continue hydrocodone. States takes hydrocodone twice daily at home. Continue treatment of UTI. She has been denying benzodiazepine intake. She will be discussing with her primary provider to attempt to wean off where possible. Long-term discussed showed if possible try to wean off high risk medications. Acute encephalopathy, possibly multifactorial, possibly secondary to urinary tract infection. E. coli in urine. Ceftriaxone every 24 hours currently. Follow-up sensitivities. Previously E. coli sensitive to cephalosporins. Possible concomitant metabolic encephalopathy secondary to medications, at home takes baclofen, Benadryl, gabapentin, [place], sertraline as well. Urine tested positive for benzodiazepines, although denies use of benzodiazepine at home, but did have a prescription for 30-day supply of diazepam back in December. Denies alcohol intake. Continue to optimize blood pressure control. COVID-19 PCR negative. MRI brain with mild chronic microvascular ischemic change in supratentorial periventricular white matter and yolanda bilaterally. Similar to prior study. 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 Stable. TSH within range. Ammonia normal. Lower suspicion for encephalitis at this time Status: Acute Qualifiers: Altered mental status type: unspecified Qualified Code(s): R41.82 - Altered mental status, unspecified (3) Hypertensive urgency: Blood pressures a little bit better, but still intermittently hypertensive. Amlodipine 10 mg. Metoprolol 25 mg. Lisinopril 10 mg daily. Hydralazine was decreased to 10 mg 3 times daily last night. Continue the same regimen for now, will adjust depending on response. Encephalopathy and anxiety are improving. Dissipate improvement in blood pressure as well. Status: Acute (4) Leukocytosis: Rising leukocytosis, UTI is due to glasses of double to ceftriaxone. Continue antibiotic. Check chest x-ray. Status: Acute (5) UTI (urinary tract infection): E. coli sensitive to Rocephin. Continue additional day of antibiotic. Status: Acute Qualifiers: Hematuria presence: without hematuria Urinary tract infection type: acute cystitis Qualified Code(s): N30.00 - Acute cystitis without hematuria Attestations Medical Necessity Statement*: Continue admission for assessment of functional decline following acute encephalopathy, optimization of blood pressure control complicated by orthostatic hypotension, disposition planning and arrangements. Coding Level of Care Code Acute Endocrinology Specialist for [facility] Fwd Exam Comprehensive Diagnoses Orthostatic hypotension I95.1 Altered mental status R41.82 Altered mental status type: unspecified Hypertensive urgency I16.0 Leukocytosis D72.829 UTI (urinary tract infection) N30.00 Hematuria presence: without hematuria Urinary tract infection type: acute cystitis
[2021-04-12] MEDS: cefTRIAXone 1,000 MG in sodium chloride 0.9% (plus) 50 ML 100 MG IV (18:29)
[2021-04-12] MEDS: ALPRAZolam 0.5 mg Tablet PO (20:55)
[2021-04-12] MEDS: gabapentin 300 mg Capsule PO (20:55)
[2021-04-12 20:56] LABS: Glucose Point of Care 164 mg/dL (70-110)
[2021-04-12] MEDS: calcium carbonate 500 mg Chew Tablet 1000 MG PO (22:15)
[2021-04-12 22:21] LABS: Glucose Point of Care 182 mg/dL (70-110)
[2021-04-13] VITALS: BP 156/62; PULSE 91; RESP 18; TEMP 36.7; O2SAT 92
[2021-04-13 01:30] LABS: Glucose Point of Care 245 mg/dL (70-110)
[2021-04-13 04:00] VITALS: BP 165/83; PULSE 89; RESP 17; TEMP 36.9; O2SAT 96
[2021-04-13 05:58] LABS: Basophils # 0.1 10^3/uL (0.0-0.1); Basophils % 0.6 %; Eosinophils # 0.4 10^3/uL (0.0-0.8); Eosinophils % 3.5 %; Hematocrit 33.2 % (37.0-47.0); Lymphocytes # 0.8 10^3/uL (0.8-4.8); Lymphocytes % 7.6 %; Mean Corpuscular HGB Conc 30.1 g/dL (30.0-36.0); Mean Corpuscular Hemoglobin 26.6 pg (28.0-34.0); Mean Corpuscular Volume 88.3 fl (81-99); Monocytes # 0.6 10^3/uL (0.2-0.9); Monocytes % 5.3 %; Neutrophils # 8.83 10^3/uL (1.8-7.7); Neutrophils % 81.4 %; Nucleated Red Blood Cells % 0 %; Platelet Count 552 10^3/cmm (130-400); Red Blood Count 3.76 10^6/uL (4.1-5.3); Red Cell Distribution Width 29.4 % (12.1-15.1); White Blood Count 10.9 10^3/uL (4.0-10.0)
[2021-04-13 06:19] LABS: Anion Gap 18.3 (5-19); Blood Urea Nitrogen 26 mg/dL (8-23); Calcium 8.8 mg/dL (8.5-10.5); Carbon Dioxide 21 mmol/L (22-29); Chloride 100 mmol/L (98-107); Glucose 182 mg/dL (65-115); Osmolality Calculated 291 mOsm/kg (285-295); Potassium 3.3 mmol/L (3.5-5.1); Sodium 136 mmol/L (136-145)
[2021-04-13 06:20] LABS: Glucose Point of Care 196 mg/dL (70-110)
[2021-04-13 06:40] VITALS: PULSE 92
[2021-04-13 07:22] VITALS: BP 192/77; PULSE 94; RESP 18; TEMP 36.8; O2SAT 97
[2021-04-13] MEDS: insulin lispro 100 unit/1 mL SUBCUT ×2 (08:03→12:48)
[2021-04-13] MEDS: metoprolol tartrate 50 mg Tablet 25 MG PO (08:04)
[2021-04-13] MEDS: atorvastatin 40 mg Tablet 20 MG PO (08:04)
[2021-04-13] MEDS: famotidine 20 mg Tablet PO (08:04)
[2021-04-13] MEDS: sertraline 50 mg Tablet PO (08:04)
[2021-04-13] MEDS: clopidogrel 75 mg Tablet PO (08:04)
[2021-04-13] MEDS: baclofen 10 mg Tablet PO (08:04)
[2021-04-13] MEDS: docusate sodium 100 mg Capsule PO (08:05)
[2021-04-13 10:55] VITALS: BP 145/73; BP 154/78; BP 179/79; PULSE 75; PULSE 80; PULSE 83
[2021-04-13] MEDS: lisinopril 5 mg Tablet 10 MG PO (10:58)
[2021-04-13] MEDS: hyDRALAzine 10 mg Tablet PO (10:58)
[2021-04-13 12:00] VITALS: BP 170/70; PULSE 81; RESP 18; TEMP 36.6; O2SAT 94
[2021-04-13 12:29] LABS: Glucose Point of Care 179 mg/dL (70-110)
--- NOTE | 2021-04-13 13:32 | P.DS_ITS ---
Discharge Providers Date of Admission: 04/07/21 19:31 Date of Discharge: April 13, 2021 Attending Provider at Admission: Mercedes East MD Attending Provider at Discharge: Mayito Rodrigues Primary Care Provider: Daniel Mae Diagnoses at Discharge Discharge Diagnosis (1) Orthostatic hypotension: Status: Acute (2) Altered mental status: Status: Acute Qualifiers: Altered mental status type: unspecified Qualified Code(s): R41.82 - Altered mental status, unspecified (3) Hypertensive urgency: Status: Acute (4) Leukocytosis: Status: Acute (5) UTI (urinary tract infection): Status: Acute Qualifiers: Hematuria presence: without hematuria Urinary tract infection type: acute cystitis Qualified Code(s): N30.00 - Acute cystitis without hematuria Reason for Visit Reason for Visit: STROKE LIKE SYMP Hospital Course Hospital Course 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 Medications which could contribute to mental status changes were held. Blood pressure control was achieved with IV doses of hydralazine, eventually resuming her usual blood pressure medications. TSH and ammonia were in normal range. Found to have urinary tract infection which was treated with course of 5 doses of ceftriaxone, culture showing E. coli resistant to tetracycline. On presentation head CT was without acute abnormality, unchanged chronic left thalamic lacunar infarct noted, CTA head and neck with approximately 50% stenosis of right proximal internal carotid artery, multinodular appearance of thyroid gland, consider evaluation with ultrasound. CT chest abdomen pelvis with no acute abnormality, cardiomegaly, coronary atherosclerotic applications, scattered prominent subcentimeter sentinel lymph nodes, nonspecific, in the abdomen bilateral renal cysts, diverticulosis without diverticulitis, Rodriguez catheter in the urinary bladder with air presumed iatrogenic, lumbar spine surgical hardware. MRI of the brain was obtained which did not show findings of PRES, no acute infarct or hemorrhage, mild chronic microvascular ischemic change in supratentorial periventricular white matter and yolanda bilaterally, similar to prior study. Small remote lacunar infarct in left thalamus and left coronary data. Stable. With treatment and supportive care her mental status continued to gradually improve. She had episodes of anxiety and tremulousness which was treated with as needed Xanax, she was resumed on less frequent dose of hydrocodone, subsequently also less frequent dose of baclofen, was resumed on lower doses of sertraline and resumed on gabapentin. Benadryl was discontinued. Her blood pressures overall have improved, coming down into 150s-160s, occasionally still going up to 180s, however, very intensive blood pressure control is not possible due to significant orthostasis. Orthostatic blood pressures today 179/79 laying, 154/78 sitting, 145/73 standing. Yesterday du ring orthostatic blood pressure she was found having orthostatic symptoms. Her mobility has been limited as well, due to this blood pressure control was de- escalate it to allow for mobilization, working with PT and preventive static syncope. We have held amlodipine for now. She continues on lisinopril, hydralazine, metoprolol. Discussed extensively with her, she understands that the degree of hypertension will need to be unfortunately tolerated to severe orthostasis, immobility resulting from there off. Due to deconditioning, functional limitation, need for close monitoring of blood pressures and adjustment of blood pressure regimen, monitoring of orthostasis, she was agreeable to proceed to rehabilitation at SNF where she was currently accepted. Long-term, please wean off any medications that may not be necessary. Would consider starting with baclofen. She is asked to stop Benadryl. Please follow-up thyroid ultrasound for multinodular thyroid incidentally noted on CT. Physical Exam Const: COMMON NORMALS: no acute distress and alert GENERAL APPEARANCE: cooperative and comfortable ORIENTATION/CONSCIOUSNESS: Yes awake HENMT: COMMON NORMALS: oropharynx normal Neck/C-Spine: COMMON NORMALS: no JVD Resp: COMMON NORMALS: normal respiratory effort and clear to auscultation bilaterally AUSCULTATION: clear to auscultation bilaterally Cardio: COMMON NORMALS: no JVD, regular rhythm, S1 normal heart sound present, S2 normal heart sound present and No murmurs present (Cardio) RHYTHM: regular rhythm HEART SOUNDS: S1 normal heart sound present and S2 normal heart sound present GI: COMMON NORMALS: Normal to inspection, nondistended, normoactive bowel sounds present, Soft to palpation and non-tender PALPATION: Yes Soft to palpation Extremity: COMMON NORMALS: no joint enlargement and no pedal edema Neuro: COMMON NORMALS: moves all extremities SENSORIUM/ORIENTATION: Yes alert Skin: COMMON NORMALS: no rashes or lesions noted GENERAL SKIN EXAM: no rashes or lesions noted Urinary Catheter Management^: Rodriguez: Cath Placed During This Visit: yes, but has since been removed by the nurse Reason for Continuing Indwelling Catheter: Other Urinary Catheter Date of Insertion: 04/07/21 Urinary Catheter Time of Insertion: 15:30 Date Urinary Catheter Removed: 04/12/21 Time Urinary Catheter Discontinued: 18:35 Discharge Data 2 Data Completed and Pending: Completed Studies During Hospitalization Category Date Time Status CT angio headneck * [id number] Urge nt Cat Scan 04/07/21 21:[address] chest abd pel w con* Urgent Cat Scan 04/07/21 21:[address] head wo con* 7 0450 Urgent Cat Scan 04/07/21 15:57 Completed XR chest 1V lindsey ble [id number] Routine Exams 04/11/21 06:00 Completed XR chest 1V lindsey ble [id number] Urgent Exams 04/07/21 15:57 Completed MR head wo con* 7 [id number] Routine MRI 04/08/21 14:30 Completed Pending at discharge Category Date Time Status Basic Metabolic P nghia AM LABS Lab 04/14/21 04:00 Ordered Basic Metabolic P nghia AM LABS Lab 04/15/21 04:00 Ordered Complete Blood Co unt w/Auto AM LABS Lab 04/14/21 04:00 Ordered Complete Blood Co unt w/Auto AM LABS Lab 04/15/21 04:00 Ordered Labs from last 24 hours 04/13/21 04/13/21 04/13/21 11:38 06:16 04:27 WBC RBC Hgb Hct MCV MCH MCHC RDW Plt Count MPV Neut % (Auto) Lymph % (Auto) [place] % (Auto) Eos % (Auto) Baso % (Auto) Neut # (Auto) Lymph # (Auto) [place] # (Auto) Eos # (Auto) Baso # (Auto) Nucleated RBC % (a uto) Nucleated RBCs # Sodium 136 Potassium 3.3 L Chloride 100 Carbon Dioxide 21 L Anion Gap 18.3 BUN 26 H Creatinine 0.8 GFR Calculation Not Reportable Glucose 182 H POC Glucose 179 H 196 H Calculated Osmolal ity 291 Calcium 8.8 04/13/21 04/12/21 04/12/21 04:27 22:17 20:47 WBC 10.9 H RBC 3.76 L Hgb 10.0 L Hct 33.2 L MCV 88.3 MCH 26.6 L MCHC 30.1 RDW 29.4 H Plt Count 552 H MPV 11.0 H Neut % (Auto) 81.4 Lymph % (Auto) 7.6 [place] % (Auto) 5.3 Eos % (Auto) 3.5 Baso % (Auto) 0.6 Neut # (Auto) 8.83 H Lymph # (Auto) 0.8 [place] # (Auto) 0.6 Eos # (Auto) 0.4 Baso # (Auto) 0.1 Nucleated RBC % (a uto) 0 Nucleated RBCs # 0.0 Sodium Potassium Chloride Carbon Dioxide Anion Gap BUN Creatinine GFR Calculation Glucose POC Glucose 182 H 164 H Calculated Osmolal ity Calcium 04/12/21 04/11/21 17:12 12:47 WBC RBC Hgb Hct MCV MCH MCHC RDW Plt Count MPV Neut % (Auto) Lymph % (Auto) [place] % (Auto) Eos % (Auto) Baso % (Auto) Neut # (Auto) Lymph # (Auto) [place] # (Auto) Eos # (Auto) Baso # (Auto) Nucleated RBC % (a uto) Nucleated RBCs # Sodium Potassium Chloride Carbon Dioxide Anion Gap BUN Creatinine GFR Calculation Glucose POC Glucose 191 H 245 H Calculated Osmolal ity Calcium Vitals: Last Vital Signs Temp 97.8 F 04/13/21 12:00 Pulse 81 04/13/21 12:00 Resp 18 04/13/21 12:00 BP 170/70 04/13/21 12:00 Pulse Ox 94 04/13/21 12:00 Discharge Plan Discharge Patient Disposition: Xfer SNF Condition: Stable Prescriptions: New aspirin 81 mg tablet,delayed release (DR/EC) 81 mg PO DAILY Qty: 90 RF: 0 Continued Tresiba FlexTouch U-200 200 unit/mL (3 mL) insulin pen 80 unit SUBCUT DAILY RF: 0 metformin 500 mg Tablet 500 mg PO BID RF: 0 cyanocobalamin (vitamin B-12) [Vitamin B-12] 2,500 mcg Tablet, Sublingual 2,500 mcg SUBLINGUAL DAILY RF: 0 hydrocodone-acetaminophen 5-325 mg Tablet 1 tab PO BID PRN (Reason: pain) RF: 0 clopidogrel [Plavix] 75 mg Tablet 75 mg PO DAILY RF: 0 acetaminophen 500 mg Tablet 500 mg PO Q6H PRN (Reason: pain) RF: 0 famotidine [Pepcid] 20 mg Tablet 20 mg PO BID RF: 0 metoprolol tartrate 50 mg Tablet 25 mg PO BID RF: 0 ibuprofen 200 mg Tablet 200 mg PO Q6H PRN (Reason: Pain) RF: 0 docusate sodium 100 mg Capsule 100 mg PO DAILY RF: 0 gabapentin 300 mg Capsule 300 mg PO BEDTIME MDD SEE PHARMACY COMMENT RF: 0 Acidophilus Tablet,Chewable 1 tab PO DAILY RF: 0 hydroxyurea 500 mg capsule 500 mg PO EVERY OTHER DAY RF: 0 hydralazine 10 mg tablet 10 mg PO TID RF: 0 atorvastatin 20 mg tablet 20 mg PO DAILY RF: 0 lisinopril 5 mg tablet 5 mg PO DAILY RF: 0 Changed sertraline 50 mg tablet 50 mg PO DAILY Qty: 0 RF: 0 baclofen 10 mg Tablet 20 mg PO BID PRN (Reason: Spasms) Qty: 0 RF: 0 amlodipine 5 mg tablet 5 mg PO DAILY PRN (Reason: Hypertension) Qty: 0 RF: 0 Discontinued diphenhydramine HCl [Benadryl] 25 mg Capsule 25 mg PO Q6H PRN (Reason: Allergy Symptoms) RF: 0 Discharge Orders: Discharge Order (Routine); Ordered 04/13/21 Ordered By: Mayito Rodrigues Other Ambulatory Orders: thyroid [id number] (Routine) Timeframe: 1 Week Facility: [facility] - Location: Radiology [facility] Ordered By: Mayito Rodrigues Referrals: SNF, PCP [Other] - 4-7 days [facility] [Outside] Daniel Mae [Primary Care Provider] - (After rehab) Discharge Diet: Cardiac Discharge Activity: Increase activity as tolerated, Limit activity as instructed and As per PT/OT instructions Patient Instructions: Hydrocodone/Acetaminophen (By mouth), Diphenhydramine (By mouth), Baclofen (By mouth), Sertraline (By mouth), Gabapentin (By mouth), Opioid Safety Activity Restrictions/Additional Instructions: Please maintain strict orthostatic precautions, rise slowly from lying to sitting, sitting to standing. Please monitor orthostatic blood pressures daily. Please adjust blood pressure medications based on sitting blood pressure and always monitor standing blood pressure to avoid hypotension or orthostatic symptoms. Maintain fall precautions. Please follow-up with your primary doctor regarding high risk medications, including hydrocodone/acetaminophen, baclofen, as well as other medications which may contribute to alteration in mental status, including Benadryl, gabapentin, sertraline. Please wean off any medications that are not absolutely necessary, wean off baclofen if possible. You completed 5-day course of antibiotics for urinary tract infection. Please discuss with your primary doctor ultrasound of the thyroid due to multinodular thyroid appearance. Discharge Attestations Time Spent in Discharge Care*: greater than 30 min Status at Discharge: Cognitive status at discharge: cognitively intact , Behavioral status at discharge: cooperative , Quality Metrics Clinical Quality Measures During this hospital stay, did patient experience: None Coding Level of Care Code [facility] note Diagnoses Orthostatic hypotension I95.1 Altered mental status R41.82 Altered mental status type: unspecified Hypertensive urgency I16.0 Leukocytosis D72.829 UTI (urinary tract infection) N30.00 Hematuria presence: without hematuria Urinary tract infection type: acute cystitis
[2021-04-13] MEDS: potassium chloride ER 20 mEq Tablet PO (14:39)
--- NOTE | 2021-04-13 15:15 | PC.NURSE ---
Report called to NITIN Connelly at [facility] and all questions answered, patient updated on plan.
--- NOTE | 2021-05-09 14:20 | PC.SOCIAL ---
called pt with us thyroid scheduled times. 2-2 at 1500, arrive 30 mins prior to scheduled time. arrive at the main entrance. pt verbalized understanding.
== END 2021-04-13 15:51 | disposition skilled nursing facility (03) | DRG 689 ==
LOC: ER 16:36 → CSU 20:24 → MEDSURG 04-10 10:41
PROVIDERS: Admitting Provider Student in an Organized Health Care Education/Training Program; Emergency Provider Emergency Medicine; PCP Family Medicine; Visit Provider Internal Medicine
DX: N30.00 Acute cystitis without hematuria (principal); G93.41 Metabolic encephalopathy; Z16.29 Resistance to other single specified antibiotic; I95.1 Orthostatic hypotension; E11.610 Type 2 diabetes mellitus with diabetic neuropathic arthropathy; Z86.73 Personal history of transient ischemic attack (TIA), and cerebral infarction without residual deficits; I25.10 Atherosclerotic heart disease of native coronary artery without angina pectoris; I16.0 Hypertensive urgency; F41.9 Anxiety disorder, unspecified; B96.20 Unspecified Escherichia coli [E. coli] as the cause of diseases classified elsewhere; Z79.4 Long term (current) use of insulin; Z79.84 Long term (current) use of oral hypoglycemic drugs; Z79.02 Long term (current) use of antithrombotics/antiplatelets; Z79.891 Long term (current) use of opiate analgesic; M54.9 Dorsalgia, unspecified; I12.9 Hypertensive chronic kidney disease with stage 1 through stage 4 chronic kidney disease, or unspecified chronic kidney disease; E11.22 Type 2 diabetes mellitus with diabetic chronic kidney disease; N18.9 Chronic kidney disease, unspecified; Z79.899 Other long term (current) drug therapy; G89.29 Other chronic pain; R53.1 Weakness; Z87.11 Personal history of peptic ulcer disease
CPT/HCPCS: 36415; 36416; 36600; 51702; 70450; 70496; 70498; 70551; 71045; 71260; 74177; 80048; 80053; 80306; 80307; 81001; 82009; 82140; 82274; 82550; 82607; 82803; 82962; 83605; 83690; 83735; 84100; 84145; 84443; 84484; 85025; 86140; 86592; 87040; 87077; 87086; 87186; 87426; 87635; 93005; 96365; 96366; 96372; 96375; 97110; 97116; 97161; 97166; 97530; 99285; J0360; J0696; J1815; J1885; J2060; J2405; J3010; J3475; J7030; J7050; J8999; Q9967

== ENCOUNTER 2021-04-29 07:52 | Emergency (ER) | payer MEDICARE, SELFPAY ==
--- NOTE | 2021-04-29 07:57 | ECG_ITS ---
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 Measurements Intervals [place] Rate: 61 P: 12 MD: 166 QRS: -25 QRSD: 99 T: 48 QT: 425 QTc: 431 Interpretive Statements SINUS RHYTHM WITH OCCASIONAL VENTRICULAR PREMATURE COMPLEXES POSSIBLE LEFT ATRIAL ENLARGEMENT [-0.1mV P-WAVE IN V1/V2] BORDERLINE LEFT AXIS DEVIATION [QRS AXIS < -20] POSSIBLE LEFT VENTRICULAR HYPERTROPHY [VOLTAGE CRITERIA PLUS LAE OR QRS WIDENING] Compared to ECG 04/09/2021 11:41:23 T-wave abnormality no longer present Electronically Signed On 04-29-2021 15:30:40 MACHINE FILLER SERVICER by Briana Westfall M.D. [id number]
--- NOTE | 2021-04-29 07:57 | ED_ITS ---
HPI - General Adult General: Chief complaint: General Medical Stated complaint: OLMOS/ NAUSEA/ HTN Time Seen by Provider: 04/29/21 07:56 History of Present Illness: HPI narrative: 75-year-old female presents emergency room via ambulance with complaints of headache nausea and elevated blood pressure. She is monitoring her blood pressure on several readings were over 200. She not recently changed any medications or missed any doses or run out. She has a known history of previous CVA and is on Plavix. She denies any chest pain palpitations. Said any difficulty speech swallowing vision balance or gait or transfer. She does use a walker but that is been a longstanding issue. Is not suddenly changed. She had noticed very slight blurriness to her vision over the weekend she had cataract surgery 1 to 2 months ago. She not really have any significant change at this point. Neurologically shows no focal neurologic deficits is awake and alert. Onset (ago): hour(s) Location: head Severity: mild Relieving factors: none Exacerbating factors: none Associated symptoms: Deny chest pain, confusion, cough, diaphoresis, decreased appetite, dyspnea, fevers/chills, headache(s), malaise, nausea, rash, palpitations, seizures, short of breath, syncope, vomiting or weakness Treatments prior to arrival: none Review of Systems Const: Denies: malaise or diaphoresis ENMT: Denies: throat pain, ear or mastoid pain, nasal discharge or nasal congestion Card: Denies: chest pain, palpitations or syncope Resp: Denies: dyspnea GI: Denies: nausea or vomiting : Denies: flank pain, difficulty voiding, dysuria, urinary frequency or urinary urgency Skin/Breast: Denies: rash Neuro: Denies: headache(s) or confusion PFSH ED PFSH: Medical History Acute cystitis Acute kidney injury superimposed on chronic kidney disease Aphasia Aspiration pneumonitis Carotid artery disease Carotid artery stenosis Cerebrovascular accident Patient with ongoing aphasia Charcot foot due to diabetes mellitus Chronic kidney disease Coronary artery disease Diabetes Diabetic foot ulcer History of hyperbaric oxygen therapy Hypertension Osteomyelitis PUD (peptic ulcer disease) Sepsis Stroke UTI (urinary tract infection) Surgical History S/P carotid endarterectomy S/P PICC central line placement Patient had tunneled left subclavian central line for IV antibiotics for osteomyelitis which was removed by Dr. Zelaya 2016 Family History Other Family history non-contributory Social History Smoking and tobacco status: never smoked Alcohol intake: never Household members: family Housing: House History of recent travel: No Physical Exam Const: COMMON NORMALS: no acute distress GENERAL APPEARANCE: cooperative and comfortable ORIENTATION/CONSCIOUSNESS: Yes awake, Yes oriented to person, Yes oriented to place and Yes oriented to time HENMT: COMMON NORMALS: normocephalic, atraumatic and hearing grossly normal bilaterally HEAD & SCALP: normocephalic and atraumatic Neck/C-Spine: COMMON NORMALS: no JVD Resp: COMMON NORMALS: normal respiratory effort, No retractions, No use of accessory muscles and clear to auscultation bilaterally AUSCULTATION: clear to auscultation bilaterally Cardio: COMMON NORMALS: no JVD, regular rate, regular rhythm and No murmurs present (Cardio) RATE: regular rate RHYTHM: regular rhythm GI: COMMON NORMALS: Soft to palpation and No hepatosplenomegaly present AUSCULTATION: Yes normoactive bowel sounds PALPATION: Yes Soft to palpation, No Tenderness to palpation present (GI), No Guarding due to palpation present (GI) and Yes No hepatosplenomegaly present Extremity: COMMON NORMALS: normal to inspection, capillary refill normal, no clubbing, cyanosis or edema, no calf tenderness and no pedal edema Neuro: SENSORIUM/ORIENTATION: Yes oriented to person, Yes oriented to place and Yes oriented to time Skin: COMMON NORMALS: no rashes or lesions noted GENERAL SKIN EXAM: no rashes or lesions noted Course Vital Signs: Vital signs: Vital Signs Pulse Rate 68 04/29/21 09:36 Respiratory Rate 17 04/29/21 09:36 Blood Pressure 167/66 04/29/21 09:36 Pulse Oximetry 95 04/29/21 09:36 MDM - General Adult MDM Narrative: Medical decision making narrative: Patient is feeling somewhat better after medicines blood pressure medicines given. Sherie add amlodipine 10 mg daily have her follow-up with her primary care doctor within the next 4 to 5 days she has no worsening or change symptoms return. Lab Data: Labs: Lab Results 04/29/21 04/29/21 04/29/21 07:10 07:10 09:17 WBC 6.9 10^3/uL 10^3/ uL (4.0-10.0) RBC 3.29 10^6/uL L 10 ^6/uL (4.1-5.3) Hgb 9.4 g/dL L g/dL (11.5-15.3) Hct 30.7 % L % (37.0-47.0) MCV 93.3 fl fl (81-99) MCH 28.6 pg pg (28.0-34.0) MCHC 30.6 g/dL g/dL (30.0-36.0) RDW 29.7 % H % (12.1-15.1) Plt Count 381 10^3/cmm 10^3 /cmm (130-400) MPV 10.5 fL H fL (7.4-10.4) Neut % (Auto) 70.5 % % Lymph % (Auto) 15.6 % % [place] % (Auto) 7.2 % % Eos % (Auto) 3.6 % % Baso % (Auto) 0.9 % % Neut # (Auto) 4.83 10^3/uL 10^3 /uL (1.8-7.7) Lymph # (Auto) 1.1 10^3/uL 10^3/ uL (0.8-4.8) [place] # (Auto) 0.5 10^3/uL 10^3/ uL (0.2-0.9) Eos # (Auto) 0.3 10^3/uL 10^3/ uL (0.0-0.8) Baso # (Auto) 0.1 10^3/uL 10^3/ uL (0.0-0.1) Nucleated RBC % (a uto) 0 % % Nucleated RBCs # 0.0 /100WBC /100W BC Sodium 140 mmol/L mmol/L (136-145) Potassium 3.7 mmol/L mmol/L (3.5-5.1) Chloride 102 mmol/L mmol/L (98-107) Carbon Dioxide 25 mmol/L mmol/L (22-29) Anion Gap 16.7 (5-19) BUN 21 mg/dL mg/dL (8-23) Creatinine 0.8 mg/dL mg/dL (0.5-0.9) GFR Calculation Not Reportable Glucose 85 mg/dL mg/dL (65-115) Calculated Osmolal ity 292 mOsm/kg mOsm/ kg (285-295) Calcium 8.9 mg/dL mg/dL (8.5-10.5) Total Bilirubin 0.2 mg/dL mg/dL (0.15-1.2) AST 11 U/L U/L (0-32) ALT 6 U/L U/L (0-33) Alkaline Phosphata se 74 IU/L IU/L (35-105) Creatine Kinase 29 U/L U/L (26-192) Total Protein 6.7 g/dL g/dL (6.6-8.7) Albumin 4.0 g/dL g/dL (3.5-5.2) Globulin 2.7 g/dL g/dL (1.3-4.6) Urine Color Yellow (Yellow) Urine Appearance Clear (CLEAR) Urine pH 7 (5-7) Ur Specific Gravit y 1.005 (1.005-1.030) Urine Protein 2+ H (Negative) Urine Glucose (UA) Norm (Normal) Urine Ketones Negative (Negative) Urine Blood Neg (Negative) Urine Nitrate Negative (Negative) Urine Bilirubin Neg (Negative) Urine Urobilinogen Neg mg/dL mg/dL (Negative) Ur Leukocyte Delmy ase Trace H (Negative) Urine RBC None /hpf /hpf (0-2) Urine WBC 10-15 /hpf H /hpf (0-5) Ur Squamous Epith Cells 0-4 /hpf H /hpf (0-5) Amorphous Sediment Not Reportable Urine Bacteria Trace /hpf /hpf (NONE) Discharge Plan Discharge Patient Disposition: Home Clinical Impression: Benign essential HTN, Anemia Condition: Stable Prescriptions: New amlodipine 10 mg tablet 10 mg PO DAILY Qty: 30 RF: 0 No Action Tresiba FlexTouch U-200 200 unit/mL (3 mL) insulin pen 80 unit SUBCUT DAILY RF: 0 metformin 500 mg Tablet 500 mg PO BID RF: 0 cyanocobalamin (vitamin B-12) [Vitamin B-12] 2,500 mcg Tablet, Sublingual 2,500 mcg SUBLINGUAL DAILY RF: 0 hydrocodone-acetaminophen 5-325 mg Tablet 1 tab PO BID PRN (Reason: pain) RF: 0 clopidogrel [Plavix] 75 mg Tablet 75 mg PO DAILY RF: 0 acetaminophen 500 mg Tablet 500 mg PO Q6H PRN (Reason: pain) RF: 0 famotidine [Pepcid] 20 mg Tablet 20 mg PO BID RF: 0 metoprolol tartrate 50 mg Tablet 25 mg PO BID RF: 0 ibuprofen 200 mg Tablet 200 mg PO Q6H PRN (Reason: Pain) RF: 0 docusate sodium 100 mg Capsule 100 mg PO DAILY RF: 0 gabapentin 300 mg Capsule 300 mg PO BEDTIME MDD SEE PHARMACY COMMENT RF: 0 Acidophilus Tablet,Chewable 1 tab PO DAILY RF: 0 hydroxyurea 500 mg capsule 500 mg PO EVERY OTHER DAY RF: 0 hydralazine 10 mg tablet 10 mg PO TID RF: 0 atorvastatin 20 mg tablet 20 mg PO DAILY RF: 0 lisinopril 5 mg tablet 5 mg PO DAILY RF: 0 baclofen 10 mg Tablet 20 mg PO BID PRN (Reason: Spasms) Qty: 0 RF: 0 sertraline 50 mg tablet 50 mg PO DAILY Qty: 0 RF: 0 amlodipine 5 mg tablet 5 mg PO DAILY PRN (Reason: Hypertension) Qty: 0 RF: 0 aspirin 81 mg tablet,delayed release (DR/EC) 81 mg PO DAILY Qty: 90 RF: 0 Discharge Orders: Discharge ED (Routine); Ordered 04/29/21 Ordered By: Jake Guerrero Referrals: Daniel Mae [Primary Care Provider] - Discharge Diet: Usual diet Discharge Activity: Limit activity as instructed Patient Instructions: Opioid Safety Activity Restrictions/Additional Instructions: Recheck blood pressure within the next 4 to 5 days return if you have further problems. You also need to have your hemoglobin rechecked within the next week. Coding Level of Care Code ED Manager Housekeeping for Chg Fwd Exam Comprehensive
[2021-04-29 07:58] VITALS: BP 187/83; PULSE 56; RESP 15; O2SAT 94; BMI 27.8
--- NOTE | 2021-04-29 08:23 | PC.NURSE ---
Continual BP, SpO2, and cardiac monitoring initiated upon arrival into room.
[2021-04-29 08:27] VITALS: PULSE 68; RESP 20; O2SAT 95
[2021-04-29 08:29] LABS: Basophils # 0.1 10^3/uL (0.0-0.1); Basophils % 0.9 %; Eosinophils # 0.3 10^3/uL (0.0-0.8); Eosinophils % 3.6 %; Hematocrit 30.7 % (37.0-47.0); Hemoglobin 9.4 g/dL (11.5-15.3); Lymphocytes # 1.1 10^3/uL (0.8-4.8); Lymphocytes % 15.6 %; Mean Corpuscular HGB Conc 30.6 g/dL (30.0-36.0); Mean Corpuscular Hemoglobin 28.6 pg (28.0-34.0); Mean Corpuscular Volume 93.3 fl (81-99); Mean Platelet Volume 10.5 fL (7.4-10.4); Monocytes # 0.5 10^3/uL (0.2-0.9); Monocytes % 7.2 %; Neutrophils # 4.83 10^3/uL (1.8-7.7); Neutrophils % 70.5 %; Nucleated Red Blood Cells % 0 %; Platelet Count 381 10^3/cmm (130-400); Red Blood Count 3.29 10^6/uL (4.1-5.3); Red Cell Distribution Width 29.7 % (12.1-15.1); White Blood Count 6.9 10^3/uL (4.0-10.0)
[2021-04-29 08:42] LABS: Alanine Aminotransferase 6 U/L (0-33); Alkaline Phosphatase 74 IU/L (35-105); Anion Gap 16.7 (5-19); Aspartate Amino Transferase 11 U/L (0-32); Blood Urea Nitrogen 21 mg/dL (8-23); Calcium 8.9 mg/dL (8.5-10.5); Carbon Dioxide 25 mmol/L (22-29); Chloride 102 mmol/L (98-107); Creatine Phosphokinase 29 U/L (26-192); Globulin 2.7 g/dL (1.3-4.6); Glucose 85 mg/dL (65-115); Osmolality Calculated 292 mOsm/kg (285-295); Potassium 3.7 mmol/L (3.5-5.1); Sodium 140 mmol/L (136-145); Total Bilirubin 0.2 mg/dL (0.15-1.2); Total Protein 6.7 g/dL (6.6-8.7)
[2021-04-29] MEDS: hyDRALAzine 20 mg/mL INJ 1 mL 10 MG IVP (09:32)
[2021-04-29] MEDS: amlodipine 5 mg Tablet PO (09:33)
[2021-04-29 09:36] VITALS: BP 167/66; PULSE 68; RESP 17; O2SAT 95
[2021-04-29 10:08] LABS: Glucose Urine UA Norm (Normal); Specific Gravity, Urine 1.005 (1.005-1.030); Urine Appearance Clear (CLEAR); Urine Color Yellow (Yellow); pH Urine 7 (5-7)
[2021-04-29 10:09] LABS: Add Urine Microscopic? YES; Bilirubin Urine Neg (Negative); Blood Urine Neg (Negative); Ketones Urine Negative (Negative); Leukocyte Esterase Urine Trace (Negative); Nitrate Urine Negative (Negative); Protein Urine 2+ (Negative); Squamous Epithelial Cell Urine 0-4 /hpf (0-5); Urobilinogen Urine Neg (Negative)
[2021-04-29 10:10] LABS: Add Urine Culture? No; Bacteria Urine TRACE /hpf
[2021-04-29 11:41] VITALS: BP 170/70; PULSE 74; RESP 15; O2SAT 96
== END 2021-04-29 11:13 | disposition home or self-care (01) ==
PROVIDERS: Emergency Provider Family Medicine; PCP Family Medicine
DX: I10 Essential (primary) hypertension (principal); D64.9 Anemia, unspecified; Z79.02 Long term (current) use of antithrombotics/antiplatelets; Z79.82 Long term (current) use of aspirin; Z79.4 Long term (current) use of insulin; Z86.73 Personal history of transient ischemic attack (TIA), and cerebral infarction without residual deficits; I25.10 Atherosclerotic heart disease of native coronary artery without angina pectoris; E11.9 Type 2 diabetes mellitus without complications
CPT/HCPCS: 80053; 81001; 82550; 85025; 93005; 96374; 99284; J0360

== ENCOUNTER → 2021-08-01 13:09 | Outpatient (BNVA) | payer MEDICARE, SELFPAY | PROVIDERS: PCP Family Medicine; Visit Provider Nurse Practitioner Family | DX: E11.621 Type 2 diabetes mellitus with foot ulcer (principal); I96 Gangrene, not elsewhere classified; L97.512 Non-pressure chronic ulcer of other part of right foot with fat layer exposed | CPT/HCPCS: 11042; 99213 ==

== ENCOUNTER → 2021-09-17 09:50 | Outpatient (BNVA) | payer MEDICARE, SELFPAY | PROVIDERS: PCP Family Medicine; Visit Provider Emergency Medicine | DX: E11.621 Type 2 diabetes mellitus with foot ulcer (principal); L97.412 Non-pressure chronic ulcer of right heel and midfoot with fat layer exposed; I96 Gangrene, not elsewhere classified | CPT/HCPCS: 11043; J2405; J2704; J3010 ==

== ENCOUNTER 2021-09-17 11:13 | Inpatient (IN) | payer MEDICARE, SELFPAY ==
[2021-09-17] VITALS (15 sets, daily range): BP systolic 98–147; BP diastolic 44–67; PULSE 62–78; RESP 14–28; TEMP 36.3–37.1; O2SAT 90–98; BMI 26.9
--- NOTE | 2021-09-17 11:52 | ED_ITS ---
HPI - General Adult General: Chief complaint: Extremity Injury, Lower Stated complaint: Thinks Right foot is infected Time Seen by Provider: 09/17/21 11:33 History of Present Illness: Patient is a 35-year-old female with history of diabetes hypertension chronic right foot wound who presents the emergency room with concerns for abscess over the wound site. Patient tells me that about 7 weeks ago, she sustained a wound to the plantar surface of her right foot. Since then, she has been follow-up with wound care and is currently taking clindamycin and ciprofloxacin compliantly. Patient however since has noticed significant swelling and redness over the right foot. Patient denies any fever or chills but was told to come to the emergency room given concerns for significant abscess for cellulitis of the right foot. Patient denies any cough, runny nose, sore throat, chest pain, shortness of palpitation, abdominal complaints, nausea/vomiting, complaints at this time. Onset:6 days ago Duration:6 days Location:home Severity:moderate/severe Associated symptoms: Deny chest pain, dyspnea, nausea, palpitations or vomiting Review of Systems Const: Denies: fever(s) or chills Eyes: Denies: change in vision ENMT: Denies: mouth pain Card: Denies: chest pain or palpitations Resp: Denies: dyspnea or non-productive cough GI: Denies: abdominal pain, nausea, vomiting or diarrhea : Denies: dysuria Musc: Reports: extremity pain (R foot swelling/pain/redness) Skin/Breast: Reports: new lesions (+R foot cellulitis and abscess) Neuro: Denies: weakness in extremities Psych: Reports: other (Normal mood) Toño/Lymph: Denies: easy bruising PFSH ED PFSH: Medical History Acute cystitis Acute kidney injury superimposed on chronic kidney disease Aphasia Aspiration pneumonitis Carotid artery disease Carotid artery stenosis Cerebrovascular accident Patient with ongoing aphasia Charcot foot due to diabetes mellitus Chronic kidney disease Coronary artery disease Diabetes Diabetic foot ulcer History of hyperbaric oxygen therapy Hypertension Osteomyelitis PUD (peptic ulcer disease) Sepsis Stroke UTI (urinary tract infection) Surgical History S/P carotid endarterectomy S/P PICC central line placement Patient had tunneled left subclavian central line for IV antibiotics for osteomyelitis which was removed by Dr. Zelaya 2016 Family History Other Family history non-contributory Social History Smoking and tobacco status: never smoked Alcohol intake: never Household members: family Housing: House History of recent travel: No Physical Exam Const: COMMON NORMALS: alert HENMT: COMMON NORMALS: atraumatic HEAD & SCALP: atraumatic MOUTH: moist mucous membranes not abnormal Eye: COMMON NORMALS: EOMs intact bilaterally and conjunctivae normal CON JUNCTIVA: Yes conjunctivae normal Neck/C-Spine: COMMON NORMALS: full ROM and supple Resp: COMMON NORMALS: normal respiratory effort and clear to auscultation bilaterally AUSCULTATION: clear to auscultation bilaterally Cardio: COMMON NORMALS: regular rate RATE: regular rate GI: COMMON NORMALS: Soft to palpation and non-tender PALPATION: Yes Soft to palpation Extremity: COMMON NORMALS: full ROM NARRATIVE EXTREMITY EXAM: + 2+ radial pulses on the right foot, cap refill less than 3 seconds, sensation and range of motion intact of the right lower extremity, indurated swelling on the plantar aspect of the R mid foot with central pallor and fluctuance with tracking erythema to the ankle and on the volar aspect. The right foot appears to be warm, fluctuant and swollen. No visible crepitus or maceration of skin. Neuro: SENSORIUM/ORIENTATION: Yes alert MOTOR EXAM: No Abnormal motor strength present and Other motor observations present (no focal motor deficits) Psych: COMMON NORMALS: speech normal SPEECH: Yes normal speech MOOD & AFFECT: Yes euthymic mood Course Vital Signs: Vital signs: Vital Signs Temperature 98.7 F 09/17/21 11:24 Pulse Rate 74 09/17/21 11:24 Respiratory Rate 18 09/17/21 11:24 Blood Pressure 136/62 09/17/21 11:24 Pulse Oximetry 95 09/17/21 11:24 [facility] - General Adult Medical Decision Making 75-year-old female with history of diabetes, hypertension, chronic right plantar wound presenting to the emergency room with concerns for new developing cellulitis and abscess of the affected wound. On physical exam, patient still noted to have induration swelling erythema of the right foot consistent with abscess and cellulitis. Neurovascular exam intact. X-ray foot showed foci of gas in the R foot concerning for necrotizing fasciits of the foot. White count of 18K. S/p vancomycin/zosyn/clindamycin. Case was discussed with Dr. Nieto at 4pm who agrees with OR washout at 4pm. Disposition: OR Lab Data : 09/17/21 12:30 09/17/21 12:30 Radiology Impressions Foot X-Ray 09/17/21 12:00 IMPRESSION: 1. Ulcer along the plantar aspect of the midfoot. There are foci of soft tissue gas along the plantar and lateral midfoot which could reflect necrotizing fasciitis. There is associated soft tissue swelling. No definite acute osseous destruction is seen to suggest osteomyelitis. Consider MRI to further assess if clinically warranted. 2. There is marked deformity of the midfoot with fusion of the proximal metatarsals and some of the tarsal bones. 3. Mild hallux valgus deformity. 4. Plantar calcaneal spur. ADDENDUM: 09/17/21 1249 Findings discussed with HAZEL GUSTAFSON at 09/17/2021 12:47 PM CDT. Laboratory Results WBC 18.8 10^3/uL (4.0-10.0) H 09/17/21 12:30 RBC 3.69 10^6/uL (4.1-5.3) L 09/17/21 12:30 Hgb 11.2 g/dL (11.5-15.3) L 09/17/21 12:30 Hct 35.6 % (37.0-47.0) L 09/17/21 12:30 MCV 96.5 fl (81-99) 09/17/21 12:30 MCH 30.4 pg (28.0-34.0) 09/17/21 12:30 MCHC 31.5 g/dL (30.0-36.0) 09/17/21 12:30 RDW 20.4 % (12.1-15.1) H 09/17/21 12:30 Plt Count 450 10^3/cmm (130-400) H 09/17/21 12:30 MPV 11.4 fL (7.4-10.4) H 09/17/21 12:30 Neut % (Auto) 86.6 % 09/17/21 12:30 Lymph % (Auto) 4.0 % 09/17/21 12:30 [place] % (Auto) 7.6 % 09/17/21 12:30 Eos % (Auto) 0.7 % 09/17/21 12:30 Baso % (Auto) 0.3 % 09/17/21 12:30 Neut # (Auto) 16.28 10^3/uL (1.8-7.7) H 09/17/21 12:30 Lymph # (Auto) 0.8 10^3/uL (0.8-4.8) 09/17/21 12:30 [place]ergus # (Auto) 1.4 10^3/uL (0.2-0.9) H 09/17/21 12:30 Eos # (Auto) 0.1 10^3/uL (0.0-0.8) 09/17/21 12:30 Baso # (Auto) 0.1 10^3/uL (0.0-0.1) 09/17/21 12:30 Nucleated RBC % (auto) 0 % 09/17/21 12:30 Nucleated RBCs # 0.0 /100WBC 09/17/21 12:30 Carbon Dioxide 25 mmol/L (22-29) 09/17/21 12:30 BUN 23 mg/dL (8-23) 09/17/21 12:30 GFR Calculation Not Reportable 09/17/21 12:30 Calcium 9.3 mg/dL (8.5-10.5) 09/17/21 12:30 Imaging Data Other Imaging: Radiologist's impression: [address] [address] XRay Report Signed with Addenda Patient: Katy Noble Unit #: [id number] : 1945 Age/Sex: 75 / F ADM Date: 09/17/21 Loc: ER Room/Bed: Attending Dr: Ordering Provider/Ordering MD: Hazel Gustafson MD Date of Service: 09/17/21 Procedure(s): XR foot LT min 3V* [id number] Accession Number(s): [id number] Report Number: [id number] ADDENDUM XR/XR foot LT min 3V* [id number] Findings discussed with HAZEL GUSTAFSON at 09/17/2021 12:47 PM CDT. ? Addendum Dictated By: ?Glen Whitney Addendum Signed By: ?Glen Whitney Signed Date/Time: 09/17/21 1249 Addendum Cosigned By: ? PROCEDURE INFORMATION: Exam: XR Left Foot Exam date and time: 09/17/2021 12:09 PM Age: 75 years old Clinical indication: Foot infection TECHNIQUE: Imaging protocol: XR Left foot. Views: 3 or more views. COMPARISON: [place] [id number] ORTH 08/13/2020 10:15 AM FINDINGS: Bones/joints: There is marked deformity of the midfoot with fusion of the proximal metatarsals and some of the tarsal bones. Mild hallux valgus deformity. Multiple claw toe deformities. No acute fracture is identified. Plantar calcaneal spur. Soft tissues: There is an ulcer along the plantar aspect of the midfoot. There are foci of soft tissue gas along the plantar and lateral midfoot which could reflect necrotizing fasciitis. There is associated soft tissue swelling. Vasculature: Atherosclerotic arterial calcifications. XR/XR foot LT min 3V* [id number] IMPRESSION: 1. Ulcer along the plantar aspect of the midfoot. There are foci of soft tissue gas along the plantar and lateral midfoot which could reflect necrotizing fasciitis. There is associated soft tissue swelling. No definite acute osseous destruction is seen to suggest osteomyelitis. Consider MRI to further assess if clinically warranted. 2. There is marked deformity of the midfoot with fusion of the proximal metatarsals and some of the tarsal bones. 3. Mild hallux valgus deformity. 4. Plantar calcaneal spur. ? Dictated By: Glen Whitney Signed By: Glen Whitney Signed Date/Time: 09/17/211239 DD/ 1209 Discharge Plan Discharge Patient Disposition: Admitted As Inpatient Clinical Impression: Abscess of foot, Cellulitis of foot, Necrotizing fasciitis Condition: Stable Coding Level of Care Code ED Correctional Probation Officer for Chg Fwd Exam Comprehensive
--- NOTE | 2021-09-17 12:00 | XRR_ITS ---
PROCEDURE INFORMATION: Exam: XR Left Foot Exam date and time: 09/17/2021 12:09 PM Age: 75 years old Clinical indication: Foot infection TECHNIQUE: Imaging protocol: XR Left foot. Views: 3 or more views. COMPARISON: [place] [id number] ORTH 08/13/2020 10:15 AM FINDINGS: Bones/joints: There is marked deformity of the midfoot with fusion of the proximal metatarsals and some of the tarsal bones. Mild hallux valgus deformity. Multiple claw toe deformities. No acute fracture is identified. Plantar calcaneal spur. Soft tissues: There is an ulcer along the plantar aspect of the midfoot. There are foci of soft tissue gas along the plantar and lateral midfoot which could reflect necrotizing fasciitis. There is associated soft tissue swelling. Vasculature: Atherosclerotic arterial calcifications. XR/XR foot LT min 3V* [id number] IMPRESSION: 1. Ulcer along the plantar aspect of the midfoot. There are foci of soft tissue gas along the plantar and lateral midfoot which could reflect necrotizing fasciitis. There is associated soft tissue swelling. No definite acute osseous destruction is seen to suggest osteomyelitis. Consider MRI to further assess if clinically warranted. 2. There is marked deformity of the midfoot with fusion of the proximal metatarsals and some of the tarsal bones. 3. Mild hallux valgus deformity. 4. Plantar calcaneal spur.
--- NOTE | 2021-09-17 12:02 | ECG_ITS ---
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 Measurements Intervals [place] Rate: 74 P: -7 OR: 146 QRS: -24 QRSD: 99 T: 66 QT: 393 QTc: 437 Interpretive Statements SINUS RHYTHM BORDERLINE LEFT AXIS DEVIATION [QRS AXIS < -20] VOLTAGE CRITERIA FOR LVH [MEETS CRITERIA IN ONE OF: R(aVL), S(V1), R(V5), R(V5/V6)+S(V1)] NONSPECIFIC T-WAVE ABNORMALITY Compared to ECG 04/29/2021 08:20:36 T-wave abnormality now present Ventricular premature complex(es) no longer present Electronically Signed On 09-17-2021 17:10:02 CDT by Shakir Vargas M.D. [id number]
[2021-09-17 12:47] LABS: Basophils # 0.1 10^3/uL (0.0-0.1); Basophils % 0.3 %; Eosinophils # 0.1 10^3/uL (0.0-0.8); Eosinophils % 0.7 %; Hematocrit 35.6 % (37.0-47.0); Hemoglobin 11.2 g/dL (11.5-15.3); Lymphocytes # 0.8 10^3/uL (0.8-4.8); Mean Corpuscular HGB Conc 31.5 g/dL (30.0-36.0); Mean Corpuscular Hemoglobin 30.4 pg (28.0-34.0); Mean Corpuscular Volume 96.5 fl (81-99); Mean Platelet Volume 11.4 fL (7.4-10.4); Monocytes # 1.4 10^3/uL (0.2-0.9); Monocytes % 7.6 %; Neutrophils # 16.28 10^3/uL (1.8-7.7); Neutrophils % 86.6 %; Nucleated Red Blood Cells % 0 %; Platelet Count 450 10^3/cmm (130-400); Red Blood Count 3.69 10^6/uL (4.1-5.3); Red Cell Distribution Width 20.4 % (12.1-15.1); White Blood Count 18.8 10^3/uL (4.0-10.0)
[2021-09-17] MEDS: piperacillin-tazobactam 4.5 GM in sodium chloride 0.9% (plus) 50 ML IV (12:47)
--- NOTE | 2021-09-17 13:09 | P.CONIM_ITS ---
Providers/Reason For Consult Consulting Physician/Specialty*: Hank Nieto D.P.M. Reason for Consult*: Diabetic foot infection with cellulitis and abscess right lower extremity Primary Care Provider: Daniel Mae History of Present Illness History of Present Illness Katy Noble is a 75 year old female presenting to the emergency department with increased redness and concern for abscess and cellulitis, was referred from the wound care clinic due to worsening of right foot wound. Was on outpatient clindamycin and ciprofloxacin. Over the weekend she felt nausea and decreased appetite, subjective fevers. This subsided on Thursday. This morning states that she was able to eat breakfast, denies any subjective fevers or chills or nausea and vomiting at this time. Wound to the right plantar forefoot corresponds to Charcot rocker-bottom foot type. Has been present for approximately 3 months. Denies any other complaints. Review of Systems General: Reports: 10 or more systems reviewed and unremarkable except in HPI and below Const: Denies: fever(s) or chills Card: Denies: chest pain or palpitations Resp: Denies: productive cough GI: Denies: abdominal pain, nausea or vomiting : Denies: flank pain Musc: Reports: extremity swelling, joint pain, joint stiffness, limited range of motion and deformity Skin/Breast: Reports: erythema, sores, nail changes and change in hair; Denies: rash Neuro: Reports: numbness in extremities, sensory changes and difficulty walking Psych: Denies: suicidal ideation Toño/Lymph: Denies: easy bruising Medications/Allergies Home Medications Medication Instructions Recorded Confirmed Last Taken Type Lactobacillus acidophilus 1 tab PO DAILY 05/31/20 04/07/21 04/07/21 History (Acidophilus) acetaminophen 500 mg tablet 500 mg PO Q6H PRN 05/31/20 04/07/21 Unknown History clopidogrel 75 mg tablet (Plavix) 75 mg PO DAILY 05/31/20 04/07/21 04/07/21 History cyanocobalamin (vitamin B-12) 2,500 mcg SUBLINGUAL DAILY 05/31/20 04/07/21 04/07/21 History 2,500 mcg sublingual tablet (Vitamin B-12) docusate sodium 100 mg capsule 100 mg PO DAILY 05/31/20 04/07/21 04/07/21 History famotidine 20 mg tablet (Pepcid) 20 mg PO BID 05/31/20 04/07/21 04/07/21 History gabapentin 300 mg capsule 300 mg PO BEDTIME MDD SEE PHARMACY 05/31/20 04/07/21 04/06/21 History COMMENT hydrocodone 5 mg-acetaminophen 325 1 tab PO BID PRN 05/31/20 04/07/21 Unknown History mg tablet ibuprofen 200 mg tablet 200 mg PO Q6H PRN 05/31/20 04/07/21 Unknown History metformin 500 mg tablet 500 mg PO BID 05/31/20 04/07/21 04/07/21 History metoprolol tartrate 50 mg tablet 25 mg PO BID 05/31/20 04/07/21 04/07/21 History insulin degludec 200 unit/mL (3 80 unit SUBCUT DAILY 06/05/20 04/07/21 04/07/21 History mL) subcutaneous pen (Tresiba FlexTouch U-200 insulin) hydroxyurea 500 mg capsule 500 mg PO EVERY OTHER DAY cap 12/12/20 04/07/21 04/07/21 History atorvastatin 20 mg tablet 20 mg PO DAILY 04/07/21 04/07/21 04/06/21 History hydralazine 10 mg tablet 10 mg PO TID 04/07/21 04/07/21 04/07/21 History lisinopril 5 mg tablet 5 mg PO DAILY 04/07/21 04/07/21 04/07/21 History amlodipine 5 mg tablet 5 mg PO DAILY PRN #0 tab 04/13/21 04/07/21 04/07/21 Rx aspirin 81 mg tablet,delayed 81 mg PO DAILY #90 tab 04/13/21 Unknown Rx release baclofen 10 mg tablet 20 mg PO BID PRN #0 tab 04/13/21 04/07/21 04/07/21 Rx sertraline 50 mg tablet 50 mg PO DAILY #0 tab 04/13/21 04/07/21 04/07/21 Rx amlodipine 10 mg tablet 10 mg PO DAILY #30 tab 04/29/21 Unknown Rx Allergies Allergy/AdvReac Type Severity Reaction Status Date / Time morphine Allergy Unknown Verified 12/27/20 10:07 Sulfa (Sulfonamide Allergy Unknown Verified 12/27/20 10:07 Antibiotics) PFSH Acute PFSH: Medical History Acute cystitis Acute kidney injury superimposed on chronic kidney disease Aphasia Aspiration pneumonitis Carotid artery disease Carotid artery stenosis Cerebrovascular accident Patient with ongoing aphasia Charcot foot due to diabetes mellitus Chronic kidney disease Coronary artery disease Diabetes Diabetic foot ulcer History of hyperbaric oxygen therapy Hypertension Osteomyelitis PUD (peptic ulcer disease) Sepsis Stroke UTI (urinary tract infection) Surgical History S/P carotid endarterectomy S/P PICC central line placement Patient had tunneled left subclavian central line for IV antibiotics for osteomyelitis which was removed by Dr. Zelaya 2016 Family History Other Family history non-contributory Social History Smoking and tobacco status: never smoked Alcohol intake: never Household members: family Housing: House History of recent travel: No Vitals/I&O/Wt Last Vital Signs Temp 98.7 F 09/17/21 11:24 Pulse 74 09/17/21 11:24 Resp 18 09/17/21 11:24 BP 136/62 09/17/21 11:24 Pulse Ox 95 09/17/21 11:24 Weight last 48 hrs Weight 193 lb Physical Exam Narrative: Patient is alert and oriented ?3 and in no acute distress.? The following is a focused bilateral lower extremity exam. VASCULAR: Dorsalis pedis +1 bilaterally posterior tibial arteries +1.? Capillary refill time less than 3 seconds to the distal hallux bilaterally. Calf is supple and nontender proximally and distally.? Decreased pedal hair growth.? Edema to the right ankle and foot. Warmth at the right ankle and foot compared to the contralateral limb. To the lower extremities present.? Dependent rubor to the feet. NEUROLOGICAL: Protective sensation intact 0/10 sites, tested with [place] Scot monofilament to bilateral feet. DERMATOLOGICAL: Full-thickness wound probes near bone right plantar foot at rocker-bottom deformity. Periwound erythema, serosanguineous drainage, cellulitis extending to the distal one third of the leg both medial and laterally. No proximal lymphangitic streaking to the knee or thigh. MUSCULOSKELETAL: No soft tissue crepitus to the right foot, ankle or leg. Rocker-bottom foot deformity of the right this is stable.? Osseous prominence at the dorsal aspect of the right first metatarsal base.? Reducible hammertoe of the fifth bilaterally.? Ankle joint dorsiflexion 8 degrees bilaterally.? CARDIOVASCULAR: S1, S2, normal rate, normal rhythm. Dorsalis pedis and posterior tibial arteries palpable. LUNGS: Clear to auscltation, no use of acessory muscles, no crackles or wheezes. Data : 09/17/21 12:30 09/17/21 12:30 A&P Assessment and plan (1) Abscess of foot: Status: Acute (2) Cellulitis of foot: Status: Acute (3) Diabetic peripheral neuropathy associated with type 2 diabetes mellitus: Status: Acute (4) Charcot's joint, right ankle and foot: Status: Acute Plan 75-year-old diabetic female presents with abscess and cellulitis to the right lower extremity. Right foot x-ray shows soft tissue emphysema directly adjacent to the soft tissue deficit that correlates to the diabetic ulcer right plantar midfoot. No acute signs of bony destruction or osteomyelitis. Oral temperature 98.7. Blood pressure 136/62, heart rate 74, respiration rate 18. White blood cell count 18.8. Sed rate and CRP pending -Surgical debridement right foot today at approximately 4:00 in OR will obtain deep wound cultures intraoperatively. -Recommend admission to the hospital service and empiric IV antibiotics -Recommend nonweightbearing to the right lower extremity -Podiatry will follow while inpatient. Coding Level of Care Code Acute Construction Foreman for [facility] Rodri Diagnoses Abscess of foot L02.619 Cellulitis of foot L03.119 Diabetic peripheral neuropathy associated with type 2 diabetes mellitus E11.42 Charcot's joint, right ankle and foot M14.671
--- NOTE | 2021-09-17 13:16 | CT_ITS ---
WS: [id number] INDICATION: Draining ulcers RIGHT foot TECHNIQUE: Noncontrast CT RIGHT foot with coronal and sagittal reformatted images. FINDINGS: Soft tissue ulceration along the plantar aspect of the midfoot.Small fluid collection in th e area of ulceration measuring 1.9 x 2.1 CM. This does not appear easily drainable. A few scattered a reas of subcutaneous air. Small amount of fluid and edema extends about the cuboid. No definite bony destruction to indicate acute osteomyelitis. Diffuse cellulitis with mild induration extending into the deep intramuscular soft tissues. Ankle eff usion with fluid along the peroneal sheath. A few small scattered locules of air in the subcutaneous soft tissues extending along the lateral ankle peroneal sheath and lower leg. This can be seen with e ivanna findings of necrotizing fasciitis with gas producing organisms. Recommend clinical correlation Advanced demineralization RIGHT foot. Hallux valgus. Chronic deformity involving the midfoot with tar honey and metatarsal bone fusion. Diffuse soft tissue edema lower leg and throughout the mid and forefo ot soft tissues. Plantar calcaneal spurring. Vascular calcification. CT/CT foot RT wo con* [id number] IMPRESSION: 1. No definite evidence of acute osteomyelitis. 2. Soft tissue ulceration along the plantar aspect of the foot laterally with a small fluid collection measuring 1.9 x 2.1 CM. This does not appear easily dr ainable. 3. Diffuse soft tissue infection mainly superficial due to cellulitis. Mild in duration extending into the deep intramuscular soft tissues. A few small locule s of air along the lateral ankle and peroneal sheath. This can be seen with ear ly necrotizing fasciitis with gas producing organisms and recommend clinical co rrelation and interval follow-up. 4. Additional nonacute findings as described above.
[2021-09-17 13:56] LABS: Erythrocyte Sedimentation Rate 84 mm/hr (0-15)
--- NOTE | 2021-09-17 13:56 | P.HP_ITS ---
Providers/Chief Complaint Admitting Physician: Hattie Simon MD Primary Care Provider: Daniel Mae Chief Complaint: Thinks Right foot is infected History of Present Illness Katy Noble is a 75 year old female who has been referred from wound care clinic for worsening of diabetic foot ulcer. She has history of Charcot foot, outpatient she was getting clindamycin and ciprofloxacin. For last 4 days she started experiencing sick, she felt nauseous with decreased appetite. She felt slightly better on Thursday. Today she followed up with wound care clinic who requested her to go to the ER for further evaluation. In the ER she was diagnosed with diabetic foot ulcer with gas gangrene, abscess and cellulitis of right lower extremity Dr. Nieto took her to the OR for debridement She has been started on broad-spectrum antibiotics including clindamycin Review of Systems Const: Reports: fever(s), chills and body aches Eyes: Denies: change in vision ENMT: Denies: throat pain Card: Denies: chest pain Resp: Denies: dyspnea GI: Reports: nausea; Denies: abdominal pain : Denies: flank pain Musc: Reports: extremity pain, extremity swelling and joint pain Skin/Breast: Reports: rash, pruritus, skin swelling and lesions Neuro: Denies: headache(s) Psych: Denies: anxiety Endo: Denies: polyuria Toño/Lymph: Denies: easy bruising All/Imm: Denies: urticaria Medications/Allergies Home Medications Medication Instructions Recorded Confirmed Last Taken Type Lactobacillus acidophilus 1 tab PO DAILY 05/31/20 09/17/21 09/17/21 History (Acidophilus) acetaminophen 500 mg tablet 500 mg PO Q6H PRN 05/31/20 09/17/21 Unknown History clopidogrel 75 mg tablet (Plavix) 75 mg PO DAILY 05/31/20 09/17/21 09/16/21 17:00 History cyanocobalamin (vitamin B-12) 2,500 mcg SUBLINGUAL DAILY 05/31/20 09/17/21 04/07/21 History 2,500 mcg sublingual tablet (Vitamin B-12) famotidine 20 mg tablet (Pepcid) 20 mg PO BID 05/31/20 09/17/21 09/17/21 History gabapentin 300 mg capsule 300 mg PO BEDTIME 05/31/20 09/17/21 09/16/21 History ibuprofen 200 mg tablet 200 mg PO Q6H PRN 05/31/20 09/17/21 Unknown History metoprolol tartrate 50 mg tablet 50 mg PO BID 05/31/20 09/17/21 09/17/21 History insulin degludec 200 unit/mL (3 25 unit SUBCUT QAM 06/05/20 09/17/21 09/17/21 History mL) subcutaneous pen (Tresiba FlexTouch U-200 insulin) hydroxyurea 500 mg capsule 500 mg PO EVERY OTHER DAY cap 12/12/20 09/17/21 1209/21 History atorvastatin 20 mg tablet 20 mg PO DAILY 04/07/21 09/17/21 09/17/21 History hydralazine 10 mg tablet 10 mg PO TID 04/07/21 09/17/21 09/17/21 History lisinopril 5 mg tablet 5 mg PO DAILY 04/07/21 09/17/21 09/17/21 History aspirin 81 mg tablet,delayed 81 mg PO DAILY #90 tab 04/13/21 09/17/21 09/17/21 Rx release baclofen 10 mg tablet 20 mg PO BID PRN #0 tab 04/13/21 09/17/21 09/17/21 Rx sertraline 50 mg tablet 50 mg PO DAILY #0 tab 04/13/21 09/17/21 09/17/21 Rx amlodipine 10 mg tablet 10 mg PO DAILY #30 tab 04/29/21 09/17/21 09/17/21 Rx calcitriol 0.25 mcg capsule 0.25 mcg PO DAILY 09/17/21 09/17/21 09/17/21 History ciprofloxacin HCl 500 mg tablet 500 mg PO DAILY 09/17/21 09/17/21 Unknown History ergocalciferol (vitamin D2) 1,250 1,250 mcg PO DAILY 09/17/21 09/17/21 09/17/21 History mcg (50,000 unit) capsule (Vitamin D2) insulin glargine 100 unit/mL (3 See Rx Instructions .ROUTE .COMPLEX 09/17/21 09/17/21 09/16/21 History mL) subcutaneous pen (Lantus Solostar U-100 Insulin) ondansetron 4 mg disintegrating 4 mg PO DAILY PRN 09/17/21 09/17/21 Unknown History tablet Allergies Allergy/AdvReac Type Severity Reaction Status Date / Time codeine Allergy ALGY-Hives Verified 09/17/21 14:34 morphine Allergy Unknown Verified 09/17/21 14:34 Sulfa (Sulfonamide Allergy Unknown Verified 09/17/21 14:34 Antibiotics) PFSH Acute PFSH: Medical History Acute cystitis Acute kidney injury superimposed on chronic kidney disease Aphasia Aspiration pneumonitis Carotid artery disease Carotid artery stenosis Cerebrovascular accident Patient with ongoing aphasia Charcot foot due to diabetes mellitus Chronic kidney disease Coronary artery disease Diabetes Diabetic foot ulcer History of hyperbaric oxygen therapy Hypertension Osteomyelitis PUD (peptic ulcer disease) Sepsis Stroke UTI (urinary tract infection) Surgical History S/P carotid endarterectomy S/P PICC central line placement Patient had tunneled left subclavian central line for IV antibiotics for osteomyelitis which was removed by Dr. Zelaya 2017 Family History Other Family history non-contributory Social History Smoking and tobacco status: never smoked Alcohol intake: never Household members: family Housing: House History of recent travel: No Vitals/I&O/Wt Last Vital Signs Temp 98.7 F 09/17/21 11:24 Pulse 74 09/17/21 11:24 Resp 18 09/17/21 11:24 BP 136/62 09/17/21 11:24 Pulse Ox 95 09/17/21 11:24 Weight last 48 hrs Weight 87.543 kg Physical Exam Narrative: Patient is awake and alert Saturating well on room air Hemodynamically stable S1, S2 Abdomen soft Right foot covered with dressing Nonfocal neuro exam EOMI, PERRLA Data : 09/17/21 12:30 09/17/21 12:30 A&P Assessment and plan (1) Charcot's joint, right ankle and foot: Status: Acute (2) Diabetic peripheral neuropathy associated with type 2 diabetes mellitus: Status: Acute (3) Abscess of foot: Status: Acute (4) Cellulitis of foot: Status: Acute (5) Necrotizing fasciitis: Status: Acute Plan Gas gangrene Concern for necrotizing fasciitis Start broad-spectrum antibiotics including clindamycin Patient has been taken to the OR for debridement by Dr. 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
[2021-09-17] MEDS: sodium chloride 0.9% 1,000 ML 30 ML IV (14:45)
[2021-09-17 14:50] LABS: Glucose Point of Care 159 mg/dL (70-110)
--- NOTE | 2021-09-17 16:21 | ANES.PREANE2 ---
Pre-Anesthetic Assessment Height/Weight: Height 1.8 m Weight 87.543 kg Temp Pulse Resp BP Pulse Ox 97.6 F 74 16 130/53 97 09/17/21 14:41 09/17/21 14:41 09/17/21 14:41 09/17/21 14:41 09/17/21 14:41 Operation Date: 09/17/21 16:30 Proposed Procedures p Incision And Drainage(Left) - Hank Nieto DPM Familial anesthetic complications: None Was Beta Solitario taken within 24 hours: N/A Was Clonidine taken within 24 hours: N/A Last intake: Intake Last Liquid Date 09/17/21 Last Liquid Time 06:00 Last Solid Date 09/17/21 Last Solid Time 06:00 Social No alcohol and No tobacco Exam alert, oriented x 3, clear to auscultation bilaterally and regular rate & rhythm Airway Submandibular: within normal limits Cervical ROM: within normal limits Mallampati: Class II Dentition: chipped CV/HEM Coronary Artery Disease, Hypertension and Peripheral Vascular Disease Metabolic Diabetes Mellitus and Hyperlipidemia Neuropsych Cerebrovascular Accident and Neuropathy Anesthetic Plan ASA status: 3 Anesthesia: MAC Medications/Allergies Home Medications Medication Instructions Recorded Confirmed Last Taken Type Lactobacillus acidophilus 1 tab PO DAILY 05/31/20 09/17/21 09/16/21 History (Acidophilus) acetaminophen 500 mg tablet 500 mg PO Q6H PRN 05/31/20 09/17/21 2 Days Ago History ~09/15/21 clopidogrel 75 mg tablet (Plavix) 75 mg PO DAILY 05/31/20 09/17/21 09/16/21 17:00 History cyanocobalamin (vitamin B-12) 2,500 mcg SUBLINGUAL DAILY 05/31/20 09/17/21 09/15/21 History 2,500 mcg sublingual tablet (Vitamin B-12) famotidine 20 mg tablet (Pepcid) 20 mg PO BID 05/31/20 09/17/21 09/17/21 History gabapentin 300 mg capsule 300 mg PO BEDTIME 05/31/20 09/17/21 09/16/21 History ibuprofen 200 mg tablet 200 mg PO Q6H PRN 05/31/20 09/17/21 3 Weeks Ago History ~08/27/21 metoprolol tartrate 50 mg tablet 50 mg PO BID 05/31/20 09/17/21 09/17/21 History insulin degludec 200 unit/mL (3 25 unit SUBCUT QAM 06/05/20 09/17/21 09/17/21 History mL) subcutaneous pen (Tresiba FlexTouch U-200 insulin) hydroxyurea 500 mg capsule 500 mg PO EVERY OTHER DAY cap 12/12/20 09/17/21 09/16/21 History atorvastatin 20 mg tablet 20 mg PO DAILY 04/07/21 09/17/21 09/16/21 History hydralazine 10 mg tablet 10 mg PO TID 04/07/21 09/17/21 09/17/21 History lisinopril 5 mg tablet 5 mg PO DAILY 04/07/21 09/17/21 09/17/21 History aspirin 81 mg tablet,delayed 81 mg PO DAILY #90 tab 04/13/21 09/17/21 09/17/21 Rx release baclofen 10 mg tablet 20 mg PO BID PRN #0 tab 04/13/21 09/17/21 3 Weeks Ago Rx ~08/27/21 sertraline 50 mg tablet 50 mg PO DAILY #0 tab 04/13/21 09/17/21 09/16/21 Rx amlodipine 10 mg tablet 10 mg PO DAILY #30 tab 04/29/21 09/17/21 09/17/21 Rx calcitriol 0.25 mcg capsule 0.25 mcg PO DAILY 09/17/21 09/17/21 09/15/21 History ciprofloxacin HCl 500 mg tablet 500 mg PO DAILY 09/17/21 09/17/21 Unknown History ergocalciferol (vitamin D2) 1,250 1,250 mcg PO DAILY 09/17/21 09/17/21 09/17/21 History mcg (50,000 unit) capsule (Vitamin D2) insulin glargine 100 unit/mL (3 See Rx Instructions .ROUTE .COMPLEX 09/17/21 09/17/21 09/17/21 History mL) subcutaneous pen (Lantus Solostar U-100 Insulin) ondansetron 4 mg disintegrating 4 mg PO DAILY PRN 09/17/21 09/17/21 09/13/21 History tablet Allergies Allergy/AdvReac Type Severity Reaction Status Date / Time codeine Allergy ALGY-Hives Verified 09/17/21 14:34 morphine Allergy Unknown Verified 09/17/21 14:34 Sulfa (Sulfonamide Allergy Unknown Verified 09/17/21 14:34 Antibiotics) Current Medications Generic Name Dose Route Start Last Admin Trade Name Freq PRN Reason Stop Dose Admin Sodium Chloride 1,000 mls @ 30 mls/hr 09/17/21 14:30 09/17/21 14:45 Sodium Chloride 0.9% IV 09/18/21 14:29 30 mls/hr .Q24H DINA Administration PFSH Anesthesia Medical History Acute cystitis Acute kidney injury superimposed on chronic kidney disease Aphasia Aspiration pneumonitis Carotid artery disease Carotid artery stenosis Cerebrovascular accident Patient with ongoing aphasia Charcot foot due to diabetes mellitus Chronic kidney disease Coronary artery disease Diabetes Diabetic foot ulcer History of hyperbaric oxygen therapy Hypertension Osteomyelitis PUD (peptic ulcer disease) Sepsis Stroke UTI (urinary tract infection) Surgical History S/P carotid endarterectomy S/P PICC central line placement Patient had tunneled left subclavian central line for IV antibiotics for osteomyelitis which was removed by Dr. Zelaya 2017 Family History Other Family history non-contributory Social History Smoking and tobacco status: never smoked Alcohol intake: never Household members: family Housing: House History of recent travel: No Data Anesthesia : 09/17/21 12:30 09/17/21 12:30 Short CBC 09/17/21 Range/Units 12:30 WBC 18.8 H (4.0-10.0) 10^3/uL Hgb 11.2 L (11.5-15.3) g/dL Hct 35.6 L (37.0-47.0) % MCV 96.5 (81-99) fl Plt Count 450 H (130-400) 10^3/cmm Neut % (Auto) 86.6 % Neut # (Auto) 16.28 H (1.8-7.7) 10^3/uL BMP 09/17/21 12:30 Sodium Cancelled Potassium Cancelled Chloride Cancelled Carbon Dioxide Cancelled BUN Cancelled Creatinine Cancelled Glucose Cancelled Calcium Cancelled Coags 09/17/21 09/17/21 12:30 12:30 ESR 84 H C-Reactive Protein Cancelled Cardiac Studies: No Data to Display
--- NOTE | 2021-09-17 16:29 | W.PM.OPSUD ---
Surgery/Procedure H&P Update DATE OF PROCEDURE: September 17, 2021 DATE H&P PERFORMED: 09/17/21 CHANGES TO PREVIOUS DOCUMENTATION: none PLANNED PROCEDURE: Operation Date: 09/17/21 16:30 Proposed Procedures p Incision And Drainage(Left) - Hank Nieto DPM
[2021-09-17] MEDS: clindamycin 600 MG/50 ML PREMIX 100 MG IV ×2 (16:33→20:05)
[2021-09-17] MEDS: lidocaine 2% INJ 20 mL INJECTION (16:47)
--- NOTE | 2021-09-17 17:12 | P.OP_ITS ---
Operative Report Date of procedure: September 17, 2021 Pre-op diagnosis: Cellulitis and abscess with diabetic foot ulcer, right. Post-op diagnosis: Osteomyelitis right foot. Post-op findings: Wound probed to bone with devitalized cortex right plantar foot. Procedure done: Incision and debridement with incision down to bone cortex right foot. CPT code 09214 Incision and debridement right ankle down to tendon. CPT code 58281 Implants: None Specimens removed/disposition: Bone right foot corresponding to the wound directly extended to the cuboid was sent to microbiology for gram stain and culture to help guide antibiotic therapy. Both aerobic and anaerobic cultures were sent. Pathology: None Surgeon: Hank mcfarland Quiller Operator: Helga Estimated blood loss: 15 No tourniquet inflated IV fluids: 0 Urine output: None Complications: None Findings: Devitalized soft tissue and bone right foot. Brief History: Katy Noble is a 75 year old female presenting to the emergency department with increased redness and concern for abscess and cellulitis, was referred from the wound care clinic due to worsening of right foot wound.? Was on outpatient clindamycin and ciprofloxacin.? Over the weekend she felt nausea and decreased appetite, subjective fevers.? This subsided on Thursday.? This morning states that she was able to eat breakfast, denies any subjective fevers or chills or nausea and vomiting at this time.? Wound to the right plantar forefoot corresponds to Charcot rocker-bottom foot type.? Has been present for approximately 3 months.? Denies any other complaints. Recommended incision and debridement down to bone if indicated. Patient is agreeable. Will undergo surgical debridement and admission to the hospital service for empiric IV antibiotics for limb salvage efforts. Procedure: Under mild sedation the patient was brought to the operating room and remained on the gurney in supine position. A timeout was performed. Anesthesia was then administered by the anesthesia service. Local anesthesia injected by myself right ankle block utilizing lidocaine and Marcaine plain one-to-one total of 30 cc. Well-padded pneumatic tourniquet applied to the right high calf, this was not inflated during the duration of procedure. Right lower extremity was scrubbed, prepped and draped utilizing normal aseptic technique. Attention was directed to the right plantar foot where a wound was appreciated measuring predebridement 5 cm x 5 cm and probed near to bone, this corresponded to the cuboid. Linear incision was made over the wound and the wound was excised full-thickness. Further debridement of devitalized epidermis, dermis and subcutaneous tissue was performed and the wound penetrated directly to cu boid bone, plantar cortex was incised of the right cuboid and debrided of all devitalized bone sharply and with rongeur. Bone was sent to microbiology for gram stain and culture this included aerobic and anaerobic cultures. Incision was flushed with copious amounts of sterile skin solution. Post debridement wound measurements 3 cm x 1 cm x 5 cm. There is some tracking laterally and this was irrigated and probed, no soft tissue crepitus encountered. No purulence encountered laterally. Attention was then directed to the right lateral ankle where a curvilinear incision was made posterior to the distal fibula coursing distal and anterior in a curvilinear fashion directly over the peroneal tendons. This corresponded to the area of soft tissue emphysema appreciated on CT scan. Dissection was carried down to tendon sheath and tendon sheath was incised and blunt dissection was performed to and around the peroneal tendon sheath. No obvious purulence or crepitus appreciated at this site. Surgical wound measured 3 cm x point 1 cm x 0.4 cm. This incision was irrigated with copious months of sterile sign solution. The incision laterally and plantar right foot wound then dressed with saline wet-to-dry utilizing sterile 4 x 4's, ABD pad, Kerlix and Coban. Tourniquet was not inflated during the duration of procedure. Patient tolerated the procedure and anesthesia well, minimal blood loss at 15 mL. Patient will be transferred to the floor to receive further medical care. Planning on empiric IV antibiotics and may narrow once surgical cultures yield further information. Patient to be strict nonweightbearing to the right foot at this time.
--- NOTE | 2021-09-17 17:15 | ANE.PACU2 ---
Inpatient post-anesthesia follow up: Airway intact: Yes Vital signs: Temperature 97.3 F Pulse Rate 62 Respiratory Rate 16 Blood Pressure 110/44 Pulse Oximetry 98 Oxygen Delivery Me thod Simple Mask Oxygen Flow Rate 80 Fraction of Inspir ed Oxygen Hydration adequate: Yes Nausea and vomiting: No Pain level: 1 Mental status: Baseline
--- NOTE | 2021-09-17 17:16 | SUR.PHASEI ---
1702 PT TO PACU 5 WARM BLANKETS TO PT, IV TO RT AC #20 WITH NS 600ML UP AT KVO RATE PER GRAVITY. RT FOOT DRESSING D/I ELEVATED PER BED PT ID BRACELET TO LT WRIST, PT ID'D WITH 2 IDENTIFERS. MONITOR SR NO ECTOPY NOTED. 1713 PT AWAKE ALERT TALKATIVE DENIES PAIN AND NAUSEA, PT ON RA TRIAL.
[2021-09-17 17:26] LABS: Glucose Point of Care 179 mg/dL (70-110)
[2021-09-17] MEDS: sodium chloride 0.9% 1,000 ML 75 ML IV (20:04)
[2021-09-17] MEDS: baclofen 10 mg Tablet 20 MG PO (20:15)
[2021-09-17] MEDS: gabapentin 300 mg Capsule PO (20:15)
[2021-09-17] MEDS: hyDRALAzine 10 mg Tablet PO (20:15)
[2021-09-17 21:14] LABS: Anion Gap 13.9 (5-19); Blood Urea Nitrogen 26 mg/dL (8-23); C Reactive Protein 150.2 mg/L (0.0-4.9); Calcium 8.2 mg/dL (8.5-10.5); Carbon Dioxide 24 mmol/L (22-29); Chloride 89 mmol/L (98-107); Glucose 346 mg/dL (65-115); Osmolality Calculated 277 mOsm/kg (285-295); Sodium 124 mmol/L (136-145)
[2021-09-17 21:16] LABS: Estmated Average Glucose 189; Hemoglobin A1C 8.2 % (4.0-6.0); Potassium 2.9 mmol/L (3.5-5.1)
[2021-09-17 21:21] LABS: Procalcitonin 0.38 ng/mL (0-0.5)
[2021-09-17] MEDS: piperacillin-tazobactam 3.375 GM in sodium chloride 0.9% (plus) 50 ML IV (22:06)
--- NOTE | 2021-09-17 23:31 | PC.PHAR ---
Pharmacokinetic dosing service Date: 09/17/21 Time: 2329 Objective: Patient: Katy Noble Floor: 256-2 Age: 75 yo Serum creatinine: 1.3 mg/dL Height: 71.0 Inches Weight (kg): 87.543 Diagnosis: Relevant medical/social history: Cultures and sensitivities: Other labs: Assessment: IBW (kg): 70.80 Dosing wt(kg): 87.543 Estimated Creatinine clearance (ml/min): 43.1 CRCL method: Cockcroft and Gault using ibw(default). Drug selected: Vancomycin Loading dose (mg): 0 Vd (liters): 78.8 (factor used: 0.9 L/kg) Hollis (hr-1): 0.040 Half life (hrs): 17.33 Recommended dose: 1500 mg Interval: 24 hrs Infusion time (hrs): 1.5 Predicted peak (mcg/mL): 29.9 Predicted trough (mcg/mL): 12.16 Total body weight is being used for vancomycin dosing. Renal function is stable [ ] /unstable [ ] Recommendations: Give Vancomycin 1500 mg q 24 hrs with an expected Cpeak of 29.9 mcg/ml and an expected Ctrough of 12.16 mcg/ml Renal dosing of other antibiotics (review renal dosing of other medications and list guidelines here): Thank you for the consult, will continue to follow. Signature: Consuelo Santiago [facility]
[2021-09-18] VITALS (7 sets, daily range): BP systolic 145–157; BP diastolic 67–76; PULSE 68–81; RESP 16–19; TEMP 36.7–37.2; O2SAT 90–95
[2021-09-18] MEDS: clindamycin 600 MG/50 ML PREMIX 100 MG IV ×3 (03:49→18:30)
[2021-09-18] MEDS: piperacillin-tazobactam 3.375 GM in sodium chloride 0.9% (plus) 50 ML IV ×3 (04:35→20:11)
[2021-09-18] MEDS: insulin glargine 100 units/1 mL 20 UNIT SUBCUT (04:36)
[2021-09-18 06:25] LABS: Magnesium 1.7 mg/dL (1.7-2.3)
[2021-09-18 06:43] LABS: Glucose Point of Care 266 mg/dL (70-110)
--- NOTE | 2021-09-18 07:59 | PM.PN ---
Subjective Subjective: Pleasant 75-year-old diabetic female with diabetic foot infection right foot and ascending cellulitis. Seen bedside this morning, she is 1 day status post I&D right foot and ankle. On empiric IV antibiotics vancomycin and Zosyn also added metronidazole. Intraoperative cultures pending. Denies any pain. Tolerating regular diet. Patient denies any subjective nausea, vomiting, fever, chills, shortness of breath or chest pain. Vitals/I&O/Wt Last Vital Signs Temp 98.4 F 09/18/21 07:50 Pulse 80 09/18/21 07:50 Resp 16 09/18/21 07:50 BP 145/76 09/18/21 07:50 Pulse Ox 95 09/18/21 07:50 09/17/21 09/18/21 09/18/21 22:59 06:59 14:59 Intake Total 910 / 960 710 / 1670 Output Total 0 / 0 Balance 910 / 960 710 / 1670 Weight last 48 hrs Weight 193 lb Weight 193 lb Physical Exam Narrative: Patient is alert and oriented ?3 and in no acute distress.? The following is a focused bilateral lower extremity exam. VASCULAR: Dorsalis pedis +1 bilaterally posterior tibial arteries +1.? Capillary refill time less than 3 seconds to the distal hallux bilaterally. Calf is supple and nontender proximally and distally.? Decreased pedal hair growth.? Edema to the right ankle and foot. Warmth at the right ankle and foot compared to the contralateral limb. To the lower extremities present.? Dependent rubor to the feet. NEUROLOGICAL: Protective sensation intact 0/10 sites, tested with [place] monofilament to bilateral feet. DERMATOLOGICAL: Full-thickness wound probes near bone right plantar foot at rocker-bottom deformity. Periwound erythema, serosanguineous drainage, cellulitis extending to the distal one third of the leg both medial and laterally. No proximal lymphangitic streaking to the knee or thigh. MUSCULOSKELETAL: No soft tissue crepitus to the right foot, ankle or leg. Rocker-bottom foot deformity of the right this is stable.? Osseous prominence at the dorsal aspect of the right first metatarsal base.? Reducible hammertoe of the fifth bilaterally.? Ankle joint dorsiflexion 8 degrees bilaterally.? Const: Feet Right: 1. Surgical incision right posterior lateral ankle HENMT: Feet Bottom: 1. Diabetic foot ulcer with surrounding cellulitis right plantar midfoot probes to cuboid Data : 09/17/21 12:30 09/17/21 20:45 Micro: Microbiology 09/17/21 20:45 Blood Culture - Preliminary Blood SPECIMEN COLLECTED 09/17/21 12:30 Blood Culture - Preliminary Blood SPECIMEN COLLECTED Other data: CT/CT foot RT wo con* [id number] IMPRESSION: 1.? No definite evidence of acute osteomyelitis. 2.? Soft tissue ulceration along the plantar aspect of the foot laterally with a small fluid collection measuring 1.9 x 2.1 CM. This does not appear easily drainable. 3.? Diffuse soft tissue infection mainly superficial due to cellulitis. Mild induration extending into the deep intramuscular soft tissues. A few small locules of air along the lateral ankle and peroneal sheath. This can be seen with early necrotizing fasciitis with gas producing organisms and recommend clinical correlation and interval follow-up. 4.? Additional nonacute findings as described above. ? Dictated By: Marino Byers MD Signed By: Marino Byers MD A&P Assessment and plan (1) Abscess of foot: Status: Acute (2) Cellulitis of foot: Status: Acute (3) Diabetic peripheral neuropathy associated with type 2 diabetes mellitus: Status: Acute (4) Charcot's joint, right ankle and foot: Status: Acute Plan 75-year-old diabetic female presents with abscess and cellulitis to the right lower extremity. 1 day status post I&D right foot and ankle due to diabetic foot infection with soft tissue emphysema date of surgical debridement 09/17/2021 Recommend continue vancomycin and Zosyn at this time, added metronidazole for anaerobes, may narrow once surgical cultures yield further information Remain nonweightbearing to the right foot at this time, elevate right foot while resting Betadine wet-to-dry twice daily For now will monitor response to antibiotic therapy, she may require further debridement pending response Podiatry will follow, greatly appreciate hospitalist management while inpatient. Hank Nieto D.P.M. cell phone [phone] Attestations Medical Necessity Statement*: Right diabetic foot infection Coding Level of Care Code Acute Shredded Filler Machine Wrapper Layer for [facility] Fwd Diagnoses Abscess of foot L02.619 Cellulitis of foot L03.119 Diabetic peripheral neuropathy associated with type 2 diabetes mellitus E11.42 Charcot's joint, right ankle and foot M14.671
[2021-09-18] MEDS: clopidogrel 75 mg Tablet PO (08:34)
[2021-09-18 08:35] LABS: Basophils # 0.1 10^3/uL (0.0-0.1); Basophils % 0.4 %; Eosinophils # 0.2 10^3/uL (0.0-0.8); Eosinophils % 1.1 %; Hematocrit 31.2 % (37.0-47.0); Hemoglobin 9.8 g/dL (11.5-15.3); Lymphocytes # 0.9 10^3/uL (0.8-4.8); Mean Corpuscular HGB Conc 31.4 g/dL (30.0-36.0); Mean Corpuscular Hemoglobin 29.4 pg (28.0-34.0); Mean Corpuscular Volume 93.7 fl (81-99); Mean Platelet Volume 10.4 fL (7.4-10.4); Monocytes % 7.3 %; Neutrophils # 11.27 10^3/uL (1.8-7.7); Neutrophils % 83.3 %; Nucleated Red Blood Cells % 0 %; Platelet Count 451 10^3/cmm (130-400); Red Blood Count 3.33 10^6/uL (4.1-5.3); Red Cell Distribution Width 20.1 % (12.1-15.1); White Blood Count 13.5 10^3/uL (4.0-10.0)
[2021-09-18] MEDS: hyDRALAzine 10 mg Tablet PO ×3 (08:35→20:11)
[2021-09-18] MEDS: metoprolol tartrate 50 mg Tablet PO ×2 (08:35→18:31)
[2021-09-18] MEDS: famotidine 20 mg Tablet PO ×2 (08:35→18:31)
[2021-09-18] MEDS: amlodipine 10 mg Tablet PO (08:36)
[2021-09-18] MEDS: metroNIDAZOLE 500 MG Tablet PO (08:36)
[2021-09-18] MEDS: aspirin 81 mg EC Tablet PO (08:36)
[2021-09-18 08:39] LABS: Anion Gap 14.1 (5-19); Blood Urea Nitrogen 22 mg/dL (8-23); Calcium 7.9 mg/dL (8.5-10.5); Carbon Dioxide 25 mmol/L (22-29); Chloride 95 mmol/L (98-107); Glucose 251 mg/dL (65-115); Osmolality Calculated 284 mOsm/kg (285-295); Potassium 3.1 mmol/L (3.5-5.1); Sodium 131 mmol/L (136-145)
--- NOTE | 2021-09-18 10:41 | PM.PN ---
Subjective Subjective: No overnight events patient is doing well, complaining of leg cramps otherwise patient is stable Vitals/I&O/Wt Last Vital Signs Temp 98.4 F 09/18/21 07:50 Pulse 80 09/18/21 07:50 Resp 16 09/18/21 07:50 BP 145/76 09/18/21 07:50 Pulse Ox 95 09/18/21 07:50 09/17/21 09/18/21 09/18/21 22:59 06:59 14:59 Intake Total 910 / 960 710 / 1670 50 / 50 Output Total 0 / 0 Balance 910 / 960 710 / 1670 50 / 50 Weight last 48 hrs Weight 87.543 kg Weight 87.543 kg Physical Exam Narrative: Patient sitting comfortably in the right foot wrapped with dressing Dressing was not removed Edema, PERRLA Nonfocal neuro exam Saturating well on room air S1, S2 Abdomen soft Appropriate mood and affect Her dressing was changed by Dr. Nieto this morning Data : 09/18/21 07:49 09/18/21 07:49 Micro: Microbiology 09/17/21 20:45 Blood Culture - Preliminary Blood SPECIMEN COLLECTED 09/17/21 12:30 Blood Culture - Preliminary Blood SPECIMEN COLLECTED A&P Assessment and plan (1) Abscess of foot: Status: Acute (2) Cellulitis of foot: Status: Acute (3) Diabetic peripheral neuropathy associated with type 2 diabetes mellitus: Status: Acute (4) Charcot's joint, right ankle and foot: Status: Acute (5) Necrotizing fasciitis: Status: Acute Plan Right lower extremity diabetic foot ulcer with abscess Gas gangrene/necrotizing fasciitis Surgical debridement 09/17 S/p I&D postop day 1 Continue IV antibiotics vancomycin Zosyn and clindamycin This regimen with adequate to cover anaerobes Patient is afebrile No fever For follow-up with or culture report Stool for no evidence of osteomyelitis Will touch base with Dr. Nieto today Full code Consistent carb diet Continue insulin Sliding scale Continue antihypertensive regimen for her history of hypertension Globin A1c 8.2 Attestations Medical Necessity Statement*: Patient will need IV antibiotics for next 2 to 3 days Time Spent in Patient Care: 40mins Coding Level of Care Code Acute Erosion Control Specialist for [facility] Fwd Diagnoses Abscess of foot L02.619 Cellulitis of foot L03.119 Diabetic peripheral neuropathy associated with type 2 diabetes mellitus E11.42 Charcot's joint, right ankle and foot M14.671 Necrotizing fasciitis M72.6
--- NOTE | 2021-09-18 10:56 | PC.CHAP ---
Pastoral Care Encounter/Spiritual Assessment Type of Contact [] Declined driver license examiner visit [] Patient/Family/Request visit [] Outpatient visit [] Follow-up visit [] Physician referral [] Code/Alert [x] Routine visit [] Staff referral [] Actively dying [] Patient sleeping [] Family support [] [] Out of room [] Palliative care [] [] Receiving care in room [] Pre-surgical visit [] Trauma [] Long length of stay [] ICU visit [] Other: Relational/Emotional Strength [x] Patient feels connected with others/family/visitors/staff [] Distress [] Loneliness/isolation [] Abandonment Spirituality of Patient [x] Person of Namita [x] Attends Yarsani of their Namita [x] Believes in Prayer [] Reads Bible or Latter Day materials [] There are Spiritual issues to be addressed Biometrics Head Interventions [x]x Prayer x] Active listening [x] Non-anxious presence [x] Spiritual/emotional support [] Crisis/trauma care [] Spiritual counseling [] Bereavement support [] Provided bereavement packet [] Provided Bible/devotional materials [] Provided toy/stuffed animal, coloring book to patient or family member [] Provided Communion [] Anointing/[place] [] Salvation [x Impact on Illness or Injury [] Angry [] Fearful [] Anxious [] Often cries [] Exhaustion [] Unable to work [] Unable to attend lutheran [] Unable to walk/stand [] Unable to read [] Unable to drive [] Unable to eat/drink [] Unable to sleep [] Unable to be with family [] Patient intubated [] Other: Summary Time spent with patient 10 min
--- NOTE | 2021-09-18 13:55 | XR_ITS ---
WS: [id number] Portable AP semiupright chest, 09/18/2021 Clinical Data: PICC line placement- Will call when ready for scan Comparison: Portable chest, 04/11/2021. Findings: No nodules, masses or effusions are seen. The heart is enlarged. The pulmonary vascularity is not increased. No pneumonia or pneumothorax is seen. The aortic arch and descending thoracic aorta show calcification and tortuosity. XR/XR chest 1V portable [id number] Impression: Cardiomegaly and atherosclerosis.
[2021-09-18] MEDS: enoxaparin 40 mg/0.4 mL Syringe SUBCUT (14:22)
--- NOTE | 2021-09-18 15:30 | XR_ITS ---
WS: [id number] Portable AP semiupright chest, 09/18/2021, 1529 hours Clinical Data: PICC line placement- Will call when ready for scan Comparison: Portable chest, 09/18/2021, 1402 hours Findings: A right PICC line has been inserted. It ends in the superior vena cava and there is no pneu mothorax. XR/XR chest 1V portable [id number] Impression: Insertion of right PICC line.
[2021-09-18 18:18] LABS: Glucose Point of Care 295 mg/dL (70-110)
[2021-09-18] MEDS: insulin glargine 100 units/1 mL 5 UNIT SUBCUT (20:11)
[2021-09-18] MEDS: gabapentin 300 mg Capsule PO (20:11)
[2021-09-18 20:30] LABS: Glucose Point of Care 337 mg/dL (70-110)
[2021-09-18] MEDS: sodium chloride 0.9% 1,000 ML 75 ML IV (23:50)
[2021-09-19] VITALS (10 sets, daily range): BP systolic 134–181; BP diastolic 51–72; PULSE 65–77; RESP 16–20; TEMP 36.2–37; O2SAT 91–96
[2021-09-19] MEDS: clindamycin 600 MG/50 ML PREMIX 100 MG IV ×3 (02:50→18:20)
[2021-09-19 04:22] LABS: Basophils # 0.1 10^3/uL (0.0-0.1); Basophils % 0.4 %; Eosinophils # 0.3 10^3/uL (0.0-0.8); Eosinophils % 2.2 %; Hematocrit 29.8 % (37.0-47.0); Hemoglobin 9.3 g/dL (11.5-15.3); Lymphocytes # 1.2 10^3/uL (0.8-4.8); Lymphocytes % 9.4 %; Mean Corpuscular HGB Conc 31.2 g/dL (30.0-36.0); Mean Corpuscular Hemoglobin 29.2 pg (28.0-34.0); Mean Corpuscular Volume 93.7 fl (81-99); Mean Platelet Volume 10.8 fL (7.4-10.4); Monocytes # 1.1 10^3/uL (0.2-0.9); Monocytes % 8.4 %; Neutrophils # 9.66 10^3/uL (1.8-7.7); Nucleated Red Blood Cells % 0 %; Platelet Count 480 10^3/cmm (130-400); Red Blood Count 3.18 10^6/uL (4.1-5.3); White Blood Count 12.6 10^3/uL (4.0-10.0)
[2021-09-19 04:46] LABS: Blood Urea Nitrogen 20 mg/dL (8-23); C Reactive Protein 122.5 mg/L (0.0-4.9); Carbon Dioxide 26 mmol/L (22-29); Chloride 95 mmol/L (98-107); Glucose 220 mg/dL (65-115); Osmolality Calculated 279 mOsm/kg (285-295); Sodium 130 mmol/L (136-145)
[2021-09-19 04:50] LABS: Procalcitonin 0.25 ng/mL (0-0.5)
[2021-09-19 05:00] LABS: Anion Gap 12.6 (5-19); Potassium 3.6 mmol/L (3.5-5.1)
[2021-09-19] MEDS: piperacillin-tazobactam 3.375 GM in sodium chloride 0.9% (plus) 50 ML IV ×3 (05:56→20:39)
[2021-09-19 06:05] LABS: Glucose Point of Care 206 mg/dL (70-110)
[2021-09-19] MEDS: insulin glargine 100 units/1 mL 20 UNIT SUBCUT (06:29)
--- NOTE | 2021-09-19 06:30 | P.PN_ITS ---
Subjective Subjective: Patient seen bedside this morning, denies any pain to the right lower extremity. Dressings are clean and dry and intact. Patient denies any subjective nausea, vomiting, fever, chills, shortness of breath or chest pain. Vitals/I&O/Wt Last Vital Signs Temp 97.8 F 09/19/21 03:47 Pulse 71 09/19/21 03:47 Resp 18 09/19/21 03:47 BP 153/51 09/19/21 03:47 Pulse Ox 92 09/19/21 00:00 09/18/21 09/18/21 09/19/21 14:59 22:59 06:59 Intake Total 700 / 700 1100 / 1800 1086 / 2886 Output Total 1000 / 1000 Balance 700 / 700 1100 / 1800 86 / 1886 Weight last 48 hrs Weight 195 lb 3.2 oz Weight 195 lb 3.2 oz Weight 193 lb Weight 193 lb Physical Exam Narrative: Patient is alert and oriented ?3 and in no acute distress.? The following is a focused bilateral lower extremity exam. VASCULAR: Dorsalis pedis +1 bilaterally posterior tibial arteries +1.? Capillary refill time less than 3 seconds to the distal hallux bilaterally. Calf is supple and nontender proximally and distally.? Decreased pedal hair growth.? Edema to the right ankle and foot. Warmth at the right ankle and foot compared to the contralateral limb. To the lower extremities present.? Dependent rubor to the feet. NEUROLOGICAL: Protective sensation intact 0/10 sites, tested with [place] monofilament to bilateral feet. DERMATOLOGICAL: Full-thickness wound probes near bone right plantar foot at ro cker-bottom deformity. Periwound erythema, serosanguineous drainage, cellulitis extending to the distal one third of the leg both medial and laterally. No proximal lymphangitic streaking to the knee or thigh. MUSCULOSKELETAL: No soft tissue crepitus to the right foot, ankle or leg. Rocker-bottom foot deformity of the right this is stable.? Osseous prominence at the dorsal aspect of the right first metatarsal base.? Reducible hammertoe of the fifth bilaterally.? Ankle joint dorsiflexion 8 degrees bilaterally.? Data : 09/19/21 03:34 09/19/21 03:34 Micro: Microbiology 09/17/21 20:45 Blood Culture - Preliminary Blood NEGATIVE TO DATE 09/17/21 12:30 Blood Culture - Preliminary Blood NEGATIVE TO DATE 09/17/21 16:58 Gram Stain - Final Foot - #1 Tissue Culture - Preliminary Strep agalactiae - (group b) 09/17/21 16:58 Anaerobic Culture - Preliminary Foot - #1 A&P Assessment and plan (1) Abscess of foot: Status: Acute (2) Cellulitis of foot: Status: Acute (3) Diabetic peripheral neuropathy associated with type 2 diabetes mellitus: Status: Acute (4) Charcot's joint, right ankle and foot: Status: Acute Plan 75-year-old diabetic female presents with abscess and cellulitis to the right lower extremity. 2 days status post I&D right foot and ankle due to diabetic foot infection with soft tissue emphysema date of surgical debridement 09/17/2021 * Continuing empiric IV antibiotics surgical cultures growing strep B * Remain nonweightbearing to the right foot at this time, elevate right foot while resting * Betadine wet-to-dry twice daily * For now will monitor response to antibiotic therapy, she may require further debridement pending response * MRI right foot to rule out acute osteomyelitis and rule out abscess, no contrast secondary to renal function Podiatry will follow, greatly appreciate hospitalist management while inpatient. Hank Nieto D.P.M. cell phone [phone] Attestations Medical Necessity Statement*: Diabetic foot infection, right foot Coding Level of Care Code Acute Supervisor Of Way for Cheri Mace Diagnoses Abscess of foot L02.619 Cellulitis of foot L03.119 Diabetic peripheral neuropathy associated with type 2 diabetes mellitus E11.42 Charcot's joint, right ankle and foot M14.671
[2021-09-19] MEDS: hyDRALAzine 10 mg Tablet PO ×3 (08:37→20:38)
[2021-09-19] MEDS: metoprolol tartrate 50 mg Tablet PO ×2 (08:37→18:19)
[2021-09-19] MEDS: aspirin 81 mg EC Tablet PO (08:37)
[2021-09-19] MEDS: famotidine 20 mg Tablet PO ×2 (08:37→18:19)
[2021-09-19] MEDS: amlodipine 10 mg Tablet PO (08:37)
[2021-09-19] MEDS: baclofen 10 mg Tablet 20 MG PO ×3 (08:37→20:39)
--- NOTE | 2021-09-19 10:43 | PM.PN ---
Subjective Subjective: Patient has remained afebrile, discontinue IV fluids, continue IV antibiotics Strep agalacticae seen on preliminary report Patient not endorsing active pain Vitals/I&O/Wt Last Vital Signs Temp 97.5 F L 09/19/21 07:33 Pulse 74 09/19/21 07:41 Resp 16 09/19/21 07:41 BP 165/69 09/19/21 07:33 Pulse Ox 95 09/19/21 07:41 09/18/21 09/19/21 09/19/21 22:59 06:59 14:59 Intake Total 1100 / 1800 1586 / 3386 1140 / 1140 Output Total 1000 / 1000 Balance 1100 / 1800 586 / 2386 1140 / 1140 Weight last 48 hrs Weight 88.541 kg Weight 88.541 kg Weight 87.543 kg Weight 87.543 kg Physical Exam Narrative: Patient is sitting comfortably in her bed Satting well on room air Nonfocal neuro exam Dressing on right foot No active signs of vascular compromise Patient is awake and alert Nonfocal neuro exam Saturating well on room air Data : 09/19/21 03:34 09/19/21 03:34 Micro: Microbiology 09/17/21 20:45 Blood Culture - Preliminary Blood NEGATIVE TO DATE 09/17/21 12:30 Blood Culture - Preliminary Blood NEGATIVE TO DATE 09/17/21 16:58 Gram Stain - Final Foot - #1 Tissue Culture - Preliminary Strep agalactiae - (group b) 09/17/21 16:58 Anaerobic Culture - Preliminary Foot - #1 A&P Assessment and plan (1) Charcot's joint, right ankle and foot: Status: Acute (2) Diabetic peripheral neuropathy associated with type 2 diabetes mellitus: Status: Acute (3) Abscess of foot: Status: Acute (4) Cellulitis of foot: Status: Acute Plan Right foot diabetic ulcer Gas/necrotizing fasciitis Status post surgical debridement 09/17 Patient is afebrile no signs of sepsis or bacteremia She has received PICC line for treatment of osteomyelitis PICC line was placed 09/18 Strep ag on preliminary report Once since the results are back we will decide on antibiotics and then discharge her Start sliding scale, discontinue IV fluids, continue IV antibiotics Will follow up with Dr. Nieto's recommendation Patient is full code Continue vancomycin Zosyn and clindamycin until sensitivity is finalized Home health services set up Attestations Medical Necessity Statement*: Continue medical management for now Time Spent in Patient Care: 40min Coding Level of Care Code Acute Emergency Services Director for g Fwd Diagnoses Charcot's joint, right ankle and foot M14.671 Diabetic peripheral neuropathy associated with type 2 diabetes mellitus E11.42 Abscess of foot L02.619 Cellulitis of foot L03.119
[2021-09-19 11:20] LABS: Glucose Point of Care 268 mg/dL (70-110)
[2021-09-19] MEDS: enoxaparin 40 mg/0.4 mL Syringe SUBCUT (11:40)
[2021-09-19] MEDS: insulin lispro 100 unit/1 mL SUBCUT (11:41)
[2021-09-19 17:11] LABS: Glucose Point of Care 109 mg/dL (70-110)
[2021-09-19 20:28] LABS: Glucose Point of Care 141 mg/dL (70-110)
[2021-09-19] MEDS: gabapentin 300 mg Capsule PO (20:38)
--- NOTE | 2021-09-19 22:00 | PC.NURSE ---
pt seemed to be acting very different in comparison to last night when i took care of her. Baseline pt is calm with no strange behavior. Tonight pt is very twitchy but in an uncontrolled manner. Whole body movements. Pt also had delayed speech as well and some incorrect answers and multiple prompting. Pt had rapid eye movements and she would not give eye contact. Pt pupils also unequal but reactive. Charge nurse at bedside as well to lay eyes. Phys called and he came to the floor to asses. Thorough neuro check done by phys and orders received at bedside. Q4hr neuro checks to be done and well as urine drug screen and urinalysis.
[2021-09-20 01:37] LABS: Add Urine Microscopic? YES; Bilirubin Urine Neg (Negative); Blood Urine 3+ (Negative); Glucose Urine UA Norm (Normal); Ketones Urine Negative (Negative); Leukocyte Esterase Urine 2+ (Negative); Nitrate Urine Negative (Negative); Protein Urine 1+ (Negative); Specific Gravity, Urine 1.005 (1.005-1.030); Urine Appearance SL Hazy (CLEAR); Urine Color Yellow (Yellow); Urobilinogen Urine Norm (Negative); pH Urine 7 (5-7)
[2021-09-20] MEDS: LORazepam 2 mg/mL INJ 1 mL IVP (01:41)
[2021-09-20] MEDS: ondansetron 2 mg/ML SDV 2 mL 4 MG IVP (01:42)
[2021-09-20 01:46] LABS: Amphetamines Screen Urine Negative (Negative); Bacteria Urine 1+ /hpf; Barbiturates Screen Urine Negative (Negative); Benzodiazepines Screen Urine Negative (Negative); Cocaine Screen Urine Negative (Negative); Mucus Urine TRACE /hpf; Opiate Screen Urine Negative (Negative); PCP Screen Urine Negative (Negative); THC Screen Urine Negative (Negative)
[2021-09-20 01:47] LABS: Add Urine Culture? No; Squamous Epithelial Cell Urine 15-25 /hpf (0-5)
[2021-09-20] MEDS: clindamycin 600 MG/50 ML PREMIX 100 MG IV ×3 (02:57→19:19)
[2021-09-20 04:00] VITALS: BP 167/74; PULSE 69; RESP 14; TEMP 36.7; O2SAT 92
[2021-09-20 04:26] LABS: Basophils # 0.1 10^3/uL (0.0-0.1); Basophils % 0.5 %; Eosinophils # 0.3 10^3/uL (0.0-0.8); Eosinophils % 2.6 %; Hematocrit 30.2 % (37.0-47.0); Hemoglobin 9.6 g/dL (11.5-15.3); Lymphocytes % 7.7 %; Mean Corpuscular HGB Conc 31.8 g/dL (30.0-36.0); Mean Corpuscular Hemoglobin 29.8 pg (28.0-34.0); Mean Corpuscular Volume 93.8 fl (81-99); Mean Platelet Volume 10.9 fL (7.4-10.4); Monocytes % 7.9 %; Neutrophils # 10.03 10^3/uL (1.8-7.7); Neutrophils % 79.6 %; Nucleated Red Blood Cells % 0 %; Platelet Count 526 10^3/cmm (130-400); Red Blood Count 3.22 10^6/uL (4.1-5.3); Red Cell Distribution Width 19.7 % (12.1-15.1); White Blood Count 12.6 10^3/uL (4.0-10.0)
[2021-09-20 04:44] LABS: Blood Urea Nitrogen 15 mg/dL (8-23); Calcium 8.1 mg/dL (8.5-10.5); Carbon Dioxide 27 mmol/L (22-29); Chloride 99 mmol/L (98-107); Glucose 136 mg/dL (65-115); Osmolality Calculated 285 mOsm/kg (285-295); Sodium 136 mmol/L (136-145)
[2021-09-20 04:46] LABS: Anion Gap 13.4 (5-19); Potassium 3.4 mmol/L (3.5-5.1)
[2021-09-20] MEDS: piperacillin-tazobactam 3.375 GM in sodium chloride 0.9% (plus) 50 ML IV ×2 (05:14→20:16)
[2021-09-20] MEDS: insulin glargine 100 units/1 mL 20 UNIT SUBCUT (06:16)
[2021-09-20 06:17] LABS: Glucose Point of Care 146 mg/dL (70-110)
--- NOTE | 2021-09-20 06:36 | P.PN_ITS ---
Subjective Subjective: Patient seen bedside this morning, denies any pain to the right lower extremity. Dressings are clean and dry and intact. Mental status change and weakness, medicine team working up CVA versus UTI. Imaging pending. Vitals/I&O/Wt Last Vital Signs Temp 98.0 F 09/20/21 04:00 Pulse 69 09/20/21 04:00 Resp 14 09/20/21 04:00 BP 167/74 09/20/21 04:00 Pulse Ox 92 09/20/21 04:00 09/19/21 09/19/21 09/20/21 14:59 22:59 06:59 Intake Total 1190 / 1190 340 / 1530 650 / 2180 Output Total 700 / 700 650 / 1350 600 / 1950 Balance 490 / 490 -310 / 180 50 / 230 Weight last 48 hrs Weight 192 lb 8 oz Weight 195 lb 3.2 oz Weight 195 lb 3.2 oz Physical Exam Narrative: Patient is alert and oriented ?3 and in no acute distress.? The following is a focused bilateral lower extremity exam. VASCULAR: Dorsalis pedis +1 bilaterally posterior tibial arteries +1.? Capillary refill time less than 3 seconds to the distal hallux bilaterally. Calf is supple and nontender proximally and distally.? Decreased pedal hair growth.? Edema to the right ankle and foot. Warmth at the right ankle and foot compared to the contralateral limb. To the lower extremities present.? Dependent rubor to the feet. NEUROLOGICAL: Protective sensation intact 0/10 sites, tested with [place] monofilament to bilateral feet. DERMATOLOGICAL: Full-thickness wound probes near bone right plantar foot at rocker-bottom deformity. Periwound erythema, serosanguineous drainage, cellulitis extending to the distal one third of the leg both medial and laterally. No proximal lymphangitic streaking to the knee or thigh. MUSCULOSKELETAL: No soft tissue crepitus to the right foot, ankle or leg. Rocker-bottom foot deformity of the right this is stable.? Osseous prominence at the dorsal aspect of the right first metatarsal base.? Reducible hammertoe of the fifth bilaterally.? Ankle joint dorsiflexion 8 degrees bilaterally.? Data : 09/20/21 04:06 09/20/21 04:06 Micro: Microbiology 09/17/21 16:58 Anaerobic Culture - Preliminary Foot - #1 09/17/21 16:58 Gram Stain - Final Foot - #1 Tissue Culture - Preliminary Strep agalactiae - (group b) A&P Assessment and plan (1) Abscess of foot: Status: Acute (2) Cellulitis of foot: Status: Acute (3) Diabetic peripheral neuropathy associated with type 2 diabetes mellitus: Status: Acute (4) Charcot's joint, right ankle and foot: Status: Acute Plan 75-year-old diabetic female presents with abscess and cellulitis to the right lower extremity. 3 days status post I&D right foot and ankle due to diabetic foot infection with soft tissue emphysema date of surgical debridement 09/17/2021 * Continuing empiric IV antibiotics surgical cultures growing strep B * Remain nonweightbearing to the right foot at this time, elevate right foot while resting * Betadine wet-to-dry twice daily * For now will monitor response to antibiotic therapy, she may require further debridement pending response * MRI right foot to rule out acute osteomyelitis and rule out abscess, no contrast secondary to renal function Podiatry will follow, greatly appreciate hospitalist management while inpatient. Hank Nieto D.P.M. 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
--- NOTE | 2021-09-20 07:10 | PC.NURSE ---
Report received from Monie Guillen LPN at this time.
[2021-09-20 07:22] VITALS: BP 154/82; PULSE 74; RESP 18; TEMP 36.7; O2SAT 92
[2021-09-20 08:00] VITALS: PULSE 87; RESP 17; O2SAT 99
--- NOTE | 2021-09-20 08:50 | MR_ITS ---
WS: [id number] MRI BRAIN WITHOUT CONTRAST HISTORY: Altered Mental Status COMPARISON: 04/08/2021 TECHNIQUE: Diffusion imaging, multiplanar T1, T2 and FLAIR imaging obtained. Study is limited by significant motion artifact despite being premedicated and head being stabilized within the magnet. Diffusion-weighted images are normal. Patient has known periventricular white matter ischemic disease . This ischemic disease is not as well visualized today due to the motion artifact. Any obvious progr ession would be obliterated. There is mild atrophy. No midline shift. Ventricles and extra-axial spaces are normal. No inferior displacement of cerebellar tonsils. The sella turcica and pituitary gland are unremarkabl e. Dural venous sinuses and [place] cannot be evaluated on this examination. Paranasal sinuses: Clear. Mastoid air cells: Normal. Calvarium and scalp: Intact. MR/MR head wo con* [id number] IMPRESSION: 1. Extremely limited evaluation of the brain due to extensive motion artifact. 2. No hemorrhage or acute infarcts identified. 3. Previously described and known small vessel ischemic disease is obscured by the motion artifact. 4. No midline shift.
--- NOTE | 2021-09-20 09:58 | PM.PN ---
Subjective Subjective: This morning patient is only oriented to herself, very confused, she is not able to keep her right arm in the air for 10 seconds, it is falling after 5 seconds on the bed, she has soiled herself with urine as well, My concern is related to stroke She is out of tPA window we are not sure about last known well time Of note, last night she was given Ativan 2 mg for concerns related to possible alcohol withdrawal I did speak with her son who is telling me that when she was in [place] she had similar presentation and that was due to UTI Urine analysis has been requested I have requested MRI head as she is already going for the MRI of the foot Vitals/I&O/Wt Last Vital Signs Temp 98.1 F 09/20/21 07:22 Pulse 87 09/20/21 08:00 Resp 17 09/20/21 08:00 BP 154/82 09/20/21 07:22 Pulse Ox 99 09/20/21 08:00 09/19/21 09/20/21 09/20/21 22:59 06:59 14:59 Intake Total 340 / 1530 650 / 2180 Output Total 650 / 1350 600 / 1950 Balance -310 / 180 50 / 230 Weight last 48 hrs Weight 87.317 kg Weight 88.541 kg Weight 88.541 kg Physical Exam Narrative: Patient is oriented to herself only She is drowsy Able to follow commands Able to keep her legs in the air for 5 seconds however she is only able to hold her right arm in the air for about 5 seconds and it would fall on the bed Left-sided facial droop She is able to stick her tongue out on verbal command Pupillary asymmetry, she is endorsing cataract surgery of right S1, S2 Looks clinically dehydrated Nonlabored breathing Saturating well on room air Bedsheet soiled with her urine Data : 09/20/21 04:06 09/20/21 04:06 Micro: Microbiology 09/17/21 16:58 Anaerobic Culture - Preliminary Foot - #1 09/17/21 16:58 Gram Stain - Final Foot - #1 Tissue Culture - Preliminary Strep agalactiae - (group b) A&P Assessment and plan (1) Abscess of foot: Status: Acute (2) Cellulitis of foot: Status: Acute (3) Necrotizing fasciitis: Status: Acute (4) Acute CVA (cerebrovascular accident): Status: Acute (5) Carotid artery stenosis: Status: Acute (6) Charcot's joint, right ankle and foot: Status: Acute (7) Diabetic peripheral neuropathy associated with type 2 diabetes mellitus: Status: Acute Plan Diabetic foot ulcer Gas/necrotizing fasciitis Staff aureus and strep agalactiae from 09/17, no signs of bacteremia Continue Vanco Zosyn and clindamycin PICC line has been placed She will need 6 weeks of IV antibiotics MRI foot pending Hemoglobin A1c 8.2 Acute encephalopathy My concern is related to CVA Requested MRI head, CTA head and neck As per the son she had similar episode few months ago which was due to UTI Patient has received 2 mg of Ativan as well with concern for alcohol withdrawal last night Requested UA as well She is out of tPA window we do not know her last well-known time Apparently her symptoms started last night and senior android software engineer evaluated her at the bedside and recommended Ativan for possible withdrawal Chronic kidney disease without acute exacerbation GFR is nonreportable Previous history of chronic kidney disease stage III Agree with MRI without contrast Patient is full code Consistent carb diet DVT prophylaxis Lovenox Attestations Medical Necessity Statement*: Continue medical continue medical management Time Spent in Patient Care: 40mins Coding Level of Care Code Acute Electrical Engineering Professor for g Fwd Diagnoses Abscess of foot L02.619 Cellulitis of foot L03.119 Necrotizing fasciitis M72.6 Acute CVA (cerebrovascular accident) I63.9 Carotid artery stenosis I65.29 Charcot's joint, right ankle and foot M14.671 Diabetic peripheral neuropathy associated with type 2 diabetes mellitus E11.42
--- NOTE | 2021-09-20 10:00 | CTR_ITS ---
PROCEDURE INFORMATION: Exam: CT Angiography Head With Contrast, Arteriography Exam date and time: 09/20/2021 2:05 PM Age: 75 years old Clinical indication: Condition or disease; Patient HX: HX CVA. PT incoherenet, unable to follow instructions, moving during study TECHNIQUE: Imaging protocol: Computed tomography angiography of the head with contrast. Exam focused on the arteries. 3D rendering (Not supervised by radiologist): MIP and/or 3D reconstructed images were created by the technologist. Radiation optimization: All CT scans at this facility use at least one of these dose optimization techniques: automated exposure control; mA and/or kV adjustment per patient size (includes targeted exams where dose is matched to clinical indication); or iterative reconstruction. Contrast material: OMNI 300; Contrast volume: 95 ml; Contrast route: INTRAVENOUS (IV); COMPARISON: CT angio headneck* [id number] 04/07/2021 11:21 PM RADIATION DOSE METRICS: Total DLP (mGy-cm): 457.27 FINDINGS: ANTERIOR CIRCULATION: Right internal carotid artery: Calcified plaque with mild stenosis of the intracranial segment. No severe stenosis or occlusion. No aneurysm. Right middle cerebral artery: Calcified plaque with mild stenosis of the intracranial segment. No severe stenosis or occlusion. No aneurysm. Right anterior cerebral artery: Unremarkable. No occlusion or significant stenosis. No aneurysm. Left internal carotid artery: Unremarkable. Intracranial segment is patent with no significant stenosis. No aneurysm. Left middle cerebral artery: Unremarkable. No occlusion or significant stenosis. No aneurysm. Left anterior cerebral artery: Unremarkable. No occlusion or significant stenosis. No aneurysm. POSTERIOR CIRCULATION: Right vertebral artery: Unremarkable. No occlusion or significant stenosis. No aneurysm. Left vertebral artery: Unremarkable. No occlusion or significant stenosis. No aneurysm. Basilar artery: Unremarkable. No occlusion or significant stenosis. No aneurysm. Right posterior cerebral artery: Unremarkable. No occlusion or significant stenosis. No aneurysm. Left posterior cerebral artery: Unremarkable. No occlusion or significant stenosis. No aneurysm. Brain: No definite mass, mass effect, or midline shift. Cerebral ventricles: No ventriculomegaly. Bones/joints: Unremarkable. No acute fracture. Soft tissues: Unremarkable. PROCEDURE INFORMATION: Exam: CT Angiography Neck With Contrast Exam date and time: 09/20/2021 2:05 PM Age: 75 years old Clinical indication: Condition or disease; Patient HX: HX CVA. PT incoherenet, unable to follow instructions, moving during study TECHNIQUE: Imaging protocol: Computed tomography angiography of the neck with contrast. 3D rendering (Not supervised by radiologist): MIP and/or 3D reconstructed images were created by the technologist. Radiation optimization: All CT scans at this facility use at least one of these dose optimization techniques: automated exposure control; mA and/or kV adjustment per patient size (includes targeted exams where dose is matched to clinical indication); or iterative reconstruction. Contrast material: OMNI 300; Contrast volume: 95 ml; Contrast route: INTRAVENOUS (IV); COMPARISON: CT angio headneck* [id number] 04/07/2021 11:21 PM RADIATION DOSE METRICS: Total DLP (mGy-cm): 457.27 FINDINGS: Right common carotid artery: Moderate stenosis at the carotid bulb with an estimated 50% luminal narrowing. No dissection or occlusion. Right internal carotid artery: Mild stenosis at the origin of the internal carotid artery with less than 50% luminal narrowing. No dissection or occlusion. Right external carotid artery: No occlusion or stenosis of the origin. Left common carotid artery: No stenosis. No dissection or occlusion. Left internal carotid artery: No stenosis of the extracranial segment. No dissection or occlusion. Left external carotid artery: No occlusion or stenosis of the origin. Right vertebral artery: No stenosis. No dissection or occlusion. Left vertebral artery: No stenosis. No dissection or occlusion. Thyroid: Bilobar and isthmic thyroid nodules noted measuring up to 2.2 cm within the right lobe series 5 image 74. Soft tissues: Normal. No significant soft tissue swelling. Bones/joints: No acute fracture. CT/CT [facility]* [id number] IMPRESSION: Calcified plaque and mild stenosis of the intracranial segments of the internal carotid arteries. No severe large vessel stenosis or occlusion. IMPRESSION: Moderate stenosis at the right carotid bulb and mild stenosis at the origin of the right internal carotid artery. No occlusion. COMMENTS: Consistent with the [employer]'s Incidental Findings Committee white paper (J Am Estrella Radiol 2015): In patients aged 35 years and older with an incidental thyroid nodule equal to or greater than 1.[address], MRI or extrathyroidal US, further evaluation with dedicated thyroid US is recommended for patients with normal life expectancy and without comorbidities. For smaller nodules without suspicious features, no further evaluation or follow up is recommended. REFERENCES: NASCET CRITERIA. The degree of internal carotid artery stenosis is based on NASCET criteria. Normal is no stenosis. Mild is less than 50% stenosis. Moderate is 50-69% stenosis. Severe is 70% to 99% stenosis. Total occlusion is no detectable patent lumen.
--- NOTE | 2021-09-20 10:12 | USCV_ITS ---
Katy Noble Age: 75 Gender: F : 1945 Exam Date: 09/20/2021 10:50 Ordering Phys: Hattie Simon MD Technologist: Nasrin Aceves [place] [facility] [place]: Right leg swelling DVT HISTORY: Lower extremity swelling. PROCEDURES: Venous duplex imaging was performed in only the right lower extremity. The following venous structures were evaluated: common femoral vein, profunda vein, proximal portion of the greater saphenous vein, superficial femoral vein, and the popliteal vein. In addition, the posterior tibial and peroneal trunk were evaluated. FINDINGS: Normal 2-D Doppler and augmentation and compressibility throughout the lower extremity venous structures. Additional imaging through the proximal calf veins also reveals no thrombus. Limited evaluation of the greater saphenous vein is patent with no thrombus. CONCLUSIONS No DVT right lower extremity. Dr. Jada Ho DO (Electronically Signed) Final Date: 20 Sep 2021 14:34 S
[2021-09-20 11:08] LABS: Glucose Point of Care 114 mg/dL (70-110)
[2021-09-20] MEDS: amlodipine 10 mg Tablet PO (11:26)
[2021-09-20] MEDS: aspirin 81 mg EC Tablet PO (11:26)
[2021-09-20] MEDS: hyDRALAzine 10 mg Tablet PO ×2 (11:27→20:16)
[2021-09-20] MEDS: metoprolol tartrate 50 mg Tablet PO (11:27)
[2021-09-20] MEDS: famotidine 20 mg Tablet PO (11:27)
[2021-09-20] MEDS: lidocaine 1% 5 ML in potassium chloride premix 100 ML 25 ML IV (11:34)
[2021-09-20] MEDS: enoxaparin 40 mg/0.4 mL Syringe SUBCUT (11:41)
[2021-09-20 11:52] LABS: Thyroid Stimulating Hormone 0.15 uIU/mL (0.27-4.20)
[2021-09-20 12:00] VITALS: BP 145/78; PULSE 78; RESP 17; TEMP 36.7; O2SAT 97
--- NOTE | 2021-09-20 12:35 | PC.NURSE ---
Patient to MRI at this time.
[2021-09-20] MEDS: iohexol 300 mg/mL 100 mL Btl IV (15:18)
--- NOTE | 2021-09-20 16:08 | PC.NURSE ---
Patient returned from MRI and CT at this time.
--- NOTE | 2021-09-20 16:50 | PC.SOCIAL ---
IMM Update IMM not updated as patient isn't discharging in the next 24-48 hours.
[2021-09-20 17:05] LABS: Glucose Point of Care 111 mg/dL (70-110)
[2021-09-20 19:00] VITALS: BP 157/72; PULSE 85; RESP 16; TEMP 37.6; O2SAT 98
--- NOTE | 2021-09-20 19:00 | PC.NURSE ---
Report to Monie ARNOLD at this time.
[2021-09-20 20:00] VITALS: PULSE 81; RESP 16; O2SAT 96
[2021-09-20] MEDS: gabapentin 300 mg Capsule PO (20:16)
[2021-09-20 20:50] LABS: Glucose Point of Care 135 mg/dL (70-110)
[2021-09-20] MEDS: insulin glargine 100 units/1 mL 5 UNIT SUBCUT (20:58)
[2021-09-20 23:37] LABS: Vancomycin Trough 16.9 ug/mL (10-15)
[2021-09-21] VITALS (10 sets, daily range): BP systolic 129–176; BP diastolic 66–84; PULSE 66–90; RESP 16–19; TEMP 36.6–37.1; O2SAT 92–98
--- NOTE | 2021-09-21 | MRR_ITS ---
[facility] Final Radiology Report Call: [phone] assistance Online chat: [email or web address] Name: ALBA MORA Age: 75Years F Date: 09/21/2021 SSN: -- : 1945 Study: MR EXTREMITY LOWER OTHER THAN JOINT WO Requesting Physician: MIKAYLA TEJEDA Images: [id number] Add?l Studies: Provided Clinical History: Rule out early osteomyelitis left foot wound probes to cuboi, No contrast due to renal function PROCEDURE INFORMATION: Exam: MR Right Lower Extremity Other Than Joint Without Contrast; Foot Exam date and time: 09/21/2021 8:53 AM Age: 75 years old Clinical indication: Nonhealing ulcer. Rule out early osteomyelitis. Left foot wound probes to cuboid. TECHNIQUE: Imaging protocol: MR of the Right lower extremity without contrast. Exam focused on the foot. COMPARISON: CT foot RT wo con* [id number] 09/17/2021 1:44 PM FINDINGS: Bones and cartilage: There is an ulcer along the plantar aspect of the midfoot. There is permeative edema in the cuboid bone with foci of low signal on the T1 sequence likely reflecting osteomyelitis. There is patchy edema in the mid to mid to plantar calcaneus suspicious for osteomyelitis. There is edema and in the proximal 3rd, 4th and 5th metatarsals with patchy low T1 signal suspicious for osteomyelitis. There is edema in the distal fibula with minimal low T1 signal. This may reflect osteomyelitis or could be reactive secondary to adjacent peroneal tendon pathology. There is marked osseous deformity involving the bones of the midfoot and hindfoot which may relate to prior trauma or Charcot arthropathy. No acute fracture is identified. The ankle mortise is symmetric. No osteochondral lesion is seen. Joint spaces: There is a talonavicular joint effusion with fluid extending into the sinus tarsi. LIGAMENTS: Anterior talofibular ligament: Probable remote tear of the anterior talofibular ligament. Posterior talofibular ligament: The posterior talofibular ligament is intact. Calcaneofibular ligament: The calcaneofibular ligament is intact. Deltoid ligament complex: The deltoid ligament is grossly intact. Lisfranc ligament: Not identified. TENDONS: Flexor tendons of foot: The flexor digitorum tendon longus is intact. The flexor hallucis longus tendon is intact. There is fluid within the flexor hallucis longus tendon sheath that likely extends from the tibiotalar articulation. Tibialis posterior tendon: Moderate tendinosis of the posterior tibialis tendon with partial-thickness tearing at its insertion. Peroneal tendons: There is severe tendinosis and tenosynovitis involving the peroneus longus tendon with an associated complete tear with retraction. Tenosynovitis of the peroneus brevis tendon. Extensor tendons of foot: There is tenosynovitis involving the extensor digitorum longus tendon. Tibialis anterior tendon: There is marked tendinosis and tenosynovitis involving the anterior tibialis tendon with partial-thickness tearing distally. There is an adjacent ganglion measuring 0.8 cm. Achilles tendon: Japy-wf-thimzihy Achilles tendinosis. Tarsal canal (Sinus tarsi): Grossly clear. Tarsal tunnel: A talonavicular joint effusion extends into the sinus tarsi. There is edema. Bursae: There is probable retrocalcaneal bursitis. Edema within the posterosuperior calcaneus is likely related to bursitis. Soft tissues: There is subcutaneous edema involving the ankle and foot suspicious for cellulitis. Plantar fascia: The plantar fascia measures up to 8.5 mm in thickness. Portions of the plantar fascia are torn. IMPRESSION: 1. Ulcer along the plantar aspect of the midfoot. 2. Findings suspicious for osteomyelitis involving the cuboid bone as well as the proximal 3rd, 4th and 5th metatarsals and mid to plantar calcaneus. 3. Edema in the distal fibula with minimal low T1 signal. This may reflect osteomyelitis or could be reactive secondary to adjacent peroneal tendon pathology. 4. Marked osseous deformity involving the bones of the midfoot and hindfoot which may relate to prior trauma or Charcot arthropathy. 5. Probable retrocalcaneal bursitis. Edema within the posterosuperior calcaneus is likely related to bursitis. 6. Subcutaneous edema involving the ankle and foot suspicious for cellulitis. 7. Wtni-ns-qsieyghd Achilles tendinosis. 8. Plantar fasciitis; portions of the plantar fascia are torn. 9. Moderate tendinosis of the posterior tibialis tendon with partial-thickness tearing at its insertion. 10. Severe tendinosis and tenosynovitis involving the peroneus longus tendon with an associated complete tear with retraction 11. Tenosynovitis of the peroneus brevis tendon. 12. Talonavicular joint effusion with fluid extending into the sinus tarsi. A small tibiotalar joint effusion is noted. 13. Marked tendinosis and tenosynovitis involving the anterior tibialis tendon with partial-thickness tearing distally. There is a small adjacent ganglion. 14. Tenosynovitis involving the extensor digitorum longus tendon. 15. Probable remote tear of the anterior talofibular ligament. Thank you for allowing us to participate in the care of your patient. Dictated and Authenticated by: Glen Whitney MD NAPP, SHARON Final Radiology Report CONFIDENTIALITY STATEMENT This report is intended only for use by the referring physician, and only in accordance with law. If you received this in error, call [phone]. Page 3 of 3 09/21/2021 2:14 PM Central Time ([place] & [place]) JAYDA
[2021-09-21] MEDS: piperacillin-tazobactam 3.375 GM in sodium chloride 0.9% (plus) 50 ML IV ×3 (03:16→17:05)
[2021-09-21] MEDS: clindamycin 600 MG/50 ML PREMIX 100 MG IV ×3 (03:17→19:28)
[2021-09-21 04:11] LABS: Basophils # 0.1 10^3/uL (0.0-0.1); Basophils % 0.5 %; Eosinophils # 0.4 10^3/uL (0.0-0.8); Eosinophils % 3.5 %; Hematocrit 33.3 % (37.0-47.0); Hemoglobin 10.3 g/dL (11.5-15.3); Lymphocytes % 9.6 %; Mean Corpuscular HGB Conc 30.9 g/dL (30.0-36.0); Mean Corpuscular Volume 93.8 fl (81-99); Mean Platelet Volume 10.1 fL (7.4-10.4); Monocytes # 0.8 10^3/uL (0.2-0.9); Monocytes % 7.7 %; Neutrophils # 8.36 10^3/uL (1.8-7.7); Neutrophils % 77.1 %; Nucleated Red Blood Cells % 0 %; Platelet Count 587 10^3/cmm (130-400); Red Blood Count 3.55 10^6/uL (4.1-5.3); Red Cell Distribution Width 19.8 % (12.1-15.1); White Blood Count 10.8 10^3/uL (4.0-10.0)
[2021-09-21 04:33] LABS: Blood Urea Nitrogen 10 mg/dL (8-23); Calcium 8.3 mg/dL (8.5-10.5); Carbon Dioxide 27 mmol/L (22-29); Chloride 100 mmol/L (98-107); Creatinine Clr Calc Pharmacy 68.0296; Glucose 108 mg/dL (65-115); Osmolality Calculated 286 mOsm/kg (285-295); Sodium 138 mmol/L (136-145)
--- NOTE | 2021-09-21 05:05 | NUR.SHIFT ---
Resting in bed throughout shift. Mentation unchanged, able to state name, confused to place, time, and situation. Able to perform activities as instructed such as lifting legs off bed, right leg noted to be weaker than left. Dressing to right foot/ankle dry and intact, no drainage noted on brigette wrap. No report or s/s of pain. Rodriguez remains patent and is draining clear pale yellow urine. Midline in right upper arm patent and intact, used to infuse iv antibiotics. Accucheck done per order, no sliding scale required per protocol.
[2021-09-21] MEDS: insulin glargine 100 units/1 mL 20 UNIT SUBCUT (06:06)
[2021-09-21 06:16] LABS: Glucose Point of Care 99 mg/dL (70-110)
--- NOTE | 2021-09-21 06:30 | PC.NURSE ---
Patient now alert to name, date of , month, year, town/state, and location/situation. Did have difficulty finding words while answering but once found answers were correct.
--- NOTE | 2021-09-21 07:21 | P.PN_ITS ---
Subjective Subjective: Patient seen bedside this morning. Improved mental status. Appears to be back to her baseline mentally as well as able to hold still at her feet and hands. Denies any pain at her lower extremities. Patient denies any subjective nausea, vomiting, fever, chills, shortness of breath or chest pain. Vitals/I&O/Wt Last Vital Signs Temp 98.4 F 09/21/21 07:19 Pulse 87 09/21/21 07:19 Resp 16 09/21/21 07:19 BP 164/80 09/21/21 07:19 Pulse Ox 98 09/21/21 07:19 09/20/21 09/21/21 09/21/21 22:59 06:59 14:59 Intake Total 392.917 / 495.000 750 / 1245.000 Output Total 700 / 700 780 / 1480 Balance -307.083 / -205.000 -30 / -235.000 Weight last 48 hrs Weight 184 lb 8 oz Weight 192 lb 8 oz Physical Exam Narrative: Patient is alert and oriented ?3 and in no acute distress.? The following is a focused bilateral lower extremity exam. VASCULAR: Dorsalis pedis +1 bilaterally posterior tibial arteries +1.? Capillary refill time less than 3 seconds to the distal hallux bilaterally. Calf is supple and nontender proximally and distally.? Decreased pedal hair growth.? Edema to the right ankle and foot.? Warmth at the right ankle and foot compared to the contralateral limb.? To the lower extremities present.? Dependent rubor to the feet. NEUROLOGICAL: Protective sensation intact 0/10 sites, tested with [place] monofilament to bilateral feet. DERMATOLOGICAL: Full-thickness wound probes near bone right plantar foot at rocker-bottom deformity.? Periwound erythema, serosanguineous drainage, cellulitis extending to the distal one third of the leg both medial and laterally.? No proximal lymphangitic streaking to the knee or thigh. Cellulitis and erythema subsiding below skin marker. MUSCULOSKELETAL: No soft tissue crepitus to the right foot, ankle or leg.? Rocker-bottom foot deformity of the right this is stable.? Osseous prominence at the dorsal aspect of the right first metatarsal base.? Reducible hammertoe of the fifth bilaterally.? Ankle joint dorsiflexion 8 degrees bilaterally.? Urinary Catheter Management: Rodriguez: Cath Placed During This Visit: yes Reason for Continuing Indwelling Catheter: Acute Urinary Retention or Obstruction Urinary Catheter Date of Insertion: 09/20/21 Urinary Catheter Time of Insertion: 17:37 Data : 09/21/21 04:00 09/21/21 04:00 Micro: Microbiology 09/17/21 16:58 Anaerobic Culture - Preliminary Foot - #1 09/17/21 16:58 Gram Stain - Final Foot - #1 Tissue Culture - Final Strep agalactiae - (group b) Staphylococcus aureus A&P Assessment and plan (1) Abscess of foot: Status: Acute (2) Cellulitis of foot: Status: Acute (3) Diabetic peripheral neuropathy associated with type 2 diabetes mellitus: Status: Acute (4) Charcot's joint, right ankle and foot: Status: Acute Plan 75-year-old diabetic female presents with abscess and cellulitis to the right lower extremity. White count trending down, cellulitis showing improvement at the right lower extremity. Status post I&D right foot and ankle due to diabetic foot infection with soft tissue emphysema date of surgical debridement 09/17/2021 * Continuing empiric IV antibiotics surgical cultures growing strep B and staph aureus. * Remain nonweightbearing to the right foot at this time, elevate right foot while resting * Betadine wet-to-dry twice daily * MRI right foot to rule out acute osteomyelitis and rule out abscess, no contrast secondary to renal function. She is a better candidate for MRI at this time is able to hold still now. Podiatry will follow, greatly appreciate hospitalist management while inpatient. Hank PierreP.M. 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
[2021-09-21] MEDS: famotidine 20 mg Tablet PO ×2 (08:01→17:06)
[2021-09-21] MEDS: metoprolol tartrate 50 mg Tablet PO ×2 (08:01→17:06)
[2021-09-21] MEDS: hyDRALAzine 10 mg Tablet PO ×3 (08:01→21:11)
[2021-09-21] MEDS: aspirin 81 mg EC Tablet PO (08:01)
[2021-09-21] MEDS: amlodipine 10 mg Tablet PO (08:01)
--- NOTE | 2021-09-21 10:54 | P.PN_ITS ---
Subjective Subjective: Patient has improved significantly in terms of her mentation, most likely her mentation fluctuated because of 2 mg of Ativan that she received No active signs of stroke on MRI head Appreciate Dr. Galan's recommendation Awaiting MRI foot Staph and Streptococcus on culture resulted, sensitivities awaiting on Staphylococcus Vitals/I&O/Wt Last Vital Signs Temp 98.4 F 09/21/21 08:00 Pulse 90 09/21/21 08:00 Resp 16 09/21/21 08:00 BP 164/80 09/21/21 08:00 Pulse Ox 97 09/21/21 08:00 09/20/21 09/21/21 09/21/21 22:59 06:59 14:59 Intake Total 392.917 / 495.000 750 / 1245.000 290 / 290 Output Total 700 / 700 780 / 1480 Balance -307.083 / -205.000 -30 / -235.000 290 / 290 Weight last 48 hrs Weight 83.688 kg Weight 83.688 kg Weight 87.317 kg Physical Exam Narrative: Very pleasant cooperative female Nonfocal neuro exam NIH 0 She is awake and alert Very pleasant and cooperative S1, S2 Saturating well on room air Abdomen soft Right foot covered with dressing Right leg swelling has improved to some extent as compared to yesterday EOMI, PERRLA asymmetrical right-sided pupil secondary to cataract Urinary Catheter Management: Rodriguez: Cath Placed During This Visit: yes Reason for Continuing Indwelling Catheter: Acute Urinary Retention or Obstruction Urinary Catheter Date of Insertion: 09/20/21 Urinary Catheter Time of Insertion: 17:37 Data : 09/21/21 04:00 09/21/21 04:00 Micro: Microbiology 09/17/21 16:58 Anaerobic Culture - Preliminary Foot - #1 09/17/21 16:58 Gram Stain - Final Foot - #1 Tissue Culture - Final Strep agalactiae - (group b) Staphylococcus aureus A&P Assessment and plan (1) Charcot's joint, right ankle and foot: Status: Acute (2) Abscess of foot: Status: Acute (3) Cellulitis of foot: Status: Acute (4) Necrotizing fasciitis: Status: Acute (5) Diabetic peripheral neuropathy associated with type 2 diabetes mellitus: Status: Acute (6) Encephalopathy: Status: Acute Plan Drug-related encephalopathy Mentation improved Avoid Ativan She does not drink alcohol Necrotizing fasciitis right foot Diabetic foot ulcer Continue IV antibiotics Staphylococcus and Streptococcus evident on culture, sensitivities pending If it is not MRSA she can probably benefit from ceftriaxone If it is MRSA then vancomycin will be sufficient for both nutrition services manager is aware PICC line has been placed Blood pressure is improved Blood glucose is better now [place] trough level target 15 to 20 mcg Appreciate pharmacy vanc dosing Plan to discharge her in next 48 hours once we see final culture sensitivity report Consistent carb diet Full code DVT prophylaxis Lovenox Attestations Medical Necessity Statement*: Awaiting culture sensitivity finalized report Time Spent in Patient Care: 20mins Coding Level of Care Code Acute Dukey Rider for g Fwd Diagnoses Charcot's joint, right ankle and foot M14.671 Abscess of foot L02.619 Cellulitis of foot L03.119 Necrotizing fasciitis M72.6 Diabetic peripheral neuropathy associated with type 2 diabetes mellitus E11.42 Encephalopathy G93.40
[2021-09-21 11:59] LABS: Glucose Point of Care 205 mg/dL (70-110)
[2021-09-21] MEDS: enoxaparin 40 mg/0.4 mL Syringe SUBCUT (12:40)
[2021-09-21] MEDS: insulin lispro 100 unit/1 mL SUBCUT ×3 (12:50→21:12)
[2021-09-21 16:52] LABS: Glucose Point of Care 374 mg/dL (70-110)
[2021-09-21] MEDS: baclofen 10 mg Tablet 20 MG PO (19:27)
[2021-09-21] MEDS: acetaminophen 500 mg Tablet PO (19:27)
[2021-09-21 20:17] LABS: Glucose Point of Care 214 mg/dL (70-110)
[2021-09-21] MEDS: gabapentin 300 mg Capsule PO (21:11)
[2021-09-21] MEDS: insulin glargine 100 units/1 mL 5 UNIT SUBCUT (21:19)
[2021-09-22] VITALS (7 sets, daily range): BP systolic 139–173; BP diastolic 70–78; PULSE 71–87; RESP 15–19; TEMP 36.1–36.7; O2SAT 94–97
[2021-09-22] MEDS: piperacillin-tazobactam 3.375 GM in sodium chloride 0.9% (plus) 50 ML IV (04:02)
[2021-09-22] MEDS: clindamycin 600 MG/50 ML PREMIX 100 MG IV (04:07)
[2021-09-22 04:20] LABS: Basophils # 0.1 10^3/uL (0.0-0.1); Basophils % 0.7 %; Eosinophils # 0.5 10^3/uL (0.0-0.8); Eosinophils % 3.7 %; Hematocrit 34.2 % (37.0-47.0); Hemoglobin 10.5 g/dL (11.5-15.3); Lymphocytes # 1.5 10^3/uL (0.8-4.8); Lymphocytes % 11.7 %; Mean Corpuscular HGB Conc 30.7 g/dL (30.0-36.0); Mean Corpuscular Hemoglobin 28.9 pg (28.0-34.0); Mean Corpuscular Volume 94.2 fl (81-99); Mean Platelet Volume 10.3 fL (7.4-10.4); Monocytes # 0.8 10^3/uL (0.2-0.9); Monocytes % 6.3 %; Neutrophils # 9.76 10^3/uL (1.8-7.7); Neutrophils % 75.2 %; Nucleated Red Blood Cells % 0 %; Platelet Count 706 10^3/cmm (130-400); Red Blood Count 3.63 10^6/uL (4.1-5.3); Red Cell Distribution Width 19.7 % (12.1-15.1)
[2021-09-22 04:43] LABS: Blood Urea Nitrogen 21 mg/dL (8-23); Calcium 8.8 mg/dL (8.5-10.5); Carbon Dioxide 27 mmol/L (22-29); Chloride 100 mmol/L (98-107); Glucose 123 mg/dL (65-115); Osmolality Calculated 286 mOsm/kg (285-295); Sodium 136 mmol/L (136-145)
[2021-09-22 04:58] LABS: Anion Gap 13.3 (5-19); Potassium 4.3 mmol/L (3.5-5.1)
[2021-09-22 06:35] LABS: Glucose Point of Care 154 mg/dL (70-110)
[2021-09-22] MEDS: insulin glargine 100 units/1 mL 20 UNIT SUBCUT (06:42)
--- NOTE | 2021-09-22 08:20 | PM.PN ---
Subjective Subjective: Patient seen bedside this morning. Improved mental status. Appears to be back to her baseline mentally as well as able to hold still at her feet and hands. Denies any pain at her lower extremities. Discharge planning taking place. Completed her MRI right foot Patient denies any subjective nausea, vomiting, fever, chills, shortness of breath or chest pain. Vitals/I&O/Wt Last Vital Signs Temp 97.8 F 09/22/21 07:39 Pulse 87 09/22/21 07:39 Resp 18 09/22/21 07:39 BP 152/78 09/22/21 07:39 Pulse Ox 95 09/22/21 07:39 09/21/21 09/22/21 09/22/21 22:59 06:59 14:59 Intake Total 510 / 970 300 / 1270 50 / 50 Output Total 1650 / 1650 Balance 510 / 970 -1350 / -380 50 / 50 Weight last 48 hrs Weight 184 lb 8 oz Weight 184 lb 8 oz Physical Exam Narrative: Patient is alert and oriented ?3 and in no acute distress.? The following is a focused bilateral lower extremity exam. VASCULAR: Dorsalis pedis +1 bilaterally posterior tibial arteries +1.? Capillary refill time less than 3 seconds to the distal hallux bilaterally. Calf is supple and nontender proximally and distally.? Decreased pedal hair growth.? Edema to the right ankle and foot.? Warmth at the right ankle and foot compared to the contralateral limb.? To the lower extremities present.? Dependent rubor to the feet. NEUROLOGICAL: Protective sensation intact 0/10 sites, tested with [place] monofilament to bilateral feet. DERMATOLOGICAL: Full-thickness wound probes near bone right plantar foot at rocker-bottom deformity.? Periwound erythema, serosanguineous drainage, cellulitis extending to the distal one third of the leg both medial and laterally.? No proximal lymphangitic streaking to the knee or thigh.? Cellulitis and erythema subsiding below skin marker. MUSCULOSKELETAL: No soft tissue crepitus to the right foot, ankle or leg.? Rocker-bottom foot deformity of the right this is stable.? Osseous prominence at the dorsal aspect of the right first metatarsal base.? Reducible hammertoe of the fifth bilaterally.? Ankle joint dorsiflexion 8 degrees bilaterally.? Urinary Catheter Management: Rodriguez: Cath Placed During This Visit: yes Reason for Continuing Indwelling Catheter: Acute Urinary Retention or Obstruction Urinary Catheter Date of Insertion: 09/20/21 Urinary Catheter Time of Insertion: 17:37 Data : 09/22/21 04:10 09/22/21 04:10 Micro: Microbiology 09/17/21 16:58 Anaerobic Culture - Preliminary Foot - #1 Other data: Right foot MRI IMPRESSION: 1. Ulcer along the plantar aspect of the midfoot. 2. Findings suspicious for osteomyelitis involving the cuboid bone as well as the proximal 3rd, 4th and 5th metatarsals and mid to plantar calcaneus. 3. Edema in the distal fibula with minimal low T1 signal. This may reflect osteomyelitis or could be reactive secondary to adjacent peroneal tendon pathology. 4. Marked osseous deformity involving the bones of the midfoot and hindfoot which may relate to prior trauma or Charcot arthropathy. 5. Probable retrocalcaneal bursitis. Edema within the posterosuperior calcaneus is likely related to bursitis. 6. Subcutaneous edema involving the ankle and foot suspicious for cellulitis. 7. Iasm-ag-cxcnhvwz Achilles tendinosis. 8. Plantar fasciitis; portions of the plantar fascia are torn. 9. Moderate tendinosis of the posterior tibialis tendon with partial-thickness tearing at its insertion. 10. Severe tendinosis and tenosynovitis involving the peroneus longus tendon with an associated complete tear with retraction 11. Tenosynovitis of the peroneus brevis tendon. 12. Talonavicular joint effusion with fluid extending into the sinus tarsi. A small tibiotalar joint effusion is noted. 13. Marked tendinosis and tenosynovitis involving the anterior tibialis tendon with partial-thickness tearing distally. There is a small adjacent ganglion. 14. Tenosynovitis involving the extensor digitorum longus tendon. 15. Probable remote tear of the anterior talofibular ligament. Thank you for allowing us to participate in the care of your patient. Dictated and Authenticated by: Glen Whitney MD NAPP, SHARON Final Radiology Report CONFIDENTIALITY STATEMENT This report is intended only for use by the referring physician, and only in accordance with law. If you received this in error, call [phone]. Page 3 of 3 09/21/2021 2:14 PM Central Time ([place] & [place]) Dictated By: Glen Whitney Signed By: Glen Whitney A&P Assessment and plan (1) Abscess of foot: Status: Acute (2) Cellulitis of foot: Status: Acute (3) Diabetic peripheral neuropathy associated with type 2 diabetes mellitus: Status: Acute (4) Charcot's joint, right ankle and foot: Status: Acute (5) Osteomyelitis of right foot: Status: Acute Plan 75-year-old diabetic female with right foot osteomyelitis, cellulitis and abscess status post debridement and bone culture with clinical improvement to surgical intervention and IV antibiotics. Status post I&D right foot and ankle due to diabetic foot infection with soft tissue emphysema date of surgical debridement 09/17/2021 intraoperative bone culture sent to microbiology. Patient has a PICC line, planning for long-term antibiotics minimum 6 weeks of vancomycin, will require home health arrangements for antibiotic delivery and pharmacy dosing, will manage PICC line and orders related to antibiotic therapy. Remain nonweightbearing to the right foot at this time, elevate right foot while resting MRI suspicious for osteomyelitis involving the cuboid, proximal third fourth and fifth metatarsals and into the anterior calcaneus. Wound probes directly to the cuboid, adjacent suspicious for involvement on MRI could be reactive versus early osteomyelitis. Clinically she is significantly improved with subsiding cellulitis and decreased edema. Plan for discharge home with follow-up with wound care for hyperbarics. Patient has a wheelchair to assist with nonweightbearing status to the right lower extremity. 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 Bone culture grew strep B and MRSA Home health orders: PICC line management and IV vancomycin 6 weeks, pharmacy to dose Daily dressing change. Home health to perform dressing changes to the right foot 3 times weekly, patient is capable of changing the dressing the remaining days. Dressing consisting of Aquacel Ag, Kerlix and 4 inch Anish wrap. May substitute Aquacel Ag with alginate with silver that is in stock. Will require supplies for daily dressing change. Contact Dr. Nieto with any questions or concerns cell phone [phone]. Attestations Medical Necessity Statement*: Cellulitis, diabetic ulcer with osteomyelitis right foot Coding Level of Care Code Acute Sales Product Manager for [facility] Diagnoses Abscess of foot L02.619 Cellulitis of foot L03.119 Diabetic peripheral neuropathy associated with type 2 diabetes mellitus E11.42 Charcot's joint, right ankle and foot M14.671 Osteomyelitis of right foot M86.9
[2021-09-22] MEDS: insulin lispro 100 unit/1 mL SUBCUT ×2 (08:30→11:41)
[2021-09-22] MEDS: aspirin 81 mg EC Tablet PO (08:31)
[2021-09-22] MEDS: famotidine 20 mg Tablet PO (08:31)
[2021-09-22] MEDS: amlodipine 10 mg Tablet PO (08:31)
[2021-09-22] MEDS: metoprolol tartrate 50 mg Tablet PO (08:31)
[2021-09-22] MEDS: hyDRALAzine 10 mg Tablet PO (08:31)
--- NOTE | 2021-09-22 10:54 | PC.SOCIAL ---
IMM update IMM updated with patient. Verbalized an understanding. Copy Pg 2 provided. Initialled, dated, timed, and placed in chart.
[2021-09-22 10:57] LABS: Glucose Point of Care 214 mg/dL (70-110)
--- NOTE | 2021-09-22 11:27 | P.DS_ITS ---
Discharge Providers Date of Admission: 09/17/21 13:06 Date of Discharge: September 22, 2021 Attending Provider at Admission: Hattie Simon MD Attending Provider at Discharge: Hattie Simon MD Primary Care Provider: Daniel Mae Diagnoses at Discharge Discharge Diagnosis (1) Abscess of foot: Status: Acute (2) Cellulitis of foot: Status: Acute (3) Diabetic peripheral neuropathy associated with type 2 diabetes mellitus: Status: Acute (4) Charcot's joint, right ankle and foot: Status: Acute (5) Osteomyelitis of right foot: Status: Acute Reason for Visit Reason for Visit: Thinks Right foot is infected Hospital Course Hospital Course 75-year-old diabetic female with right foot osteomyelitis, cellulitis and abscess status post debridement and bone culture with clinical improvement to surgical intervention and IV antibiotics. Status post I&D right foot and ankle due to diabetic foot infection with soft tissue emphysema date of surgical debridement 09/17/2021 intraoperative bone culture sent to microbiology. * Patient has a PICC line, planning for long-term antibiotics minimum 6 weeks of vancomycin, will require home health arrangements for antibiotic delivery and pharmacy dosing, will manage PICC line and orders related to antibiotic therapy. * Remain nonweightbearing to the right foot at this time, elevate right foot while resting * MRI positive for osteomyelitis involving the cuboid, proximal third fourth and fifth metatarsals and into the anterior calcaneus.? Wound probes directly to the cuboid, adjacent suspicious for involvement on MRI could be reactive versus early osteomyelitis.? Clinically she is significantly improved with subsiding cellulitis and decreased edema. * Plan for discharge home with follow-up with wound care for hyperbarics. * Patient has a wheelchair to assist with nonweightbearing status to the right lower extremity. 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 * Bone culture grew strep B and MRSA Home health orders: * PICC line management and IV vancomycin, considering chronic kidney disease would use 1 g daily for 6 weeks, (last difficulty October 29, Vanco trough level to be drawn weekly, I have CCed myself and Dr. Nieto for follow-up, we do not have ID for next few weeks) * Daily dressing change.? Home health to perform dressing changes to the right foot 3 times weekly, patient is capable of changing the dressing the remaining days. * Dressing consisting of Aquacel Ag, Kerlix and 4 inch Anish wrap.? May substitute Aquacel Ag with alginate with silver that is in stock.? Will require supplies for daily dressing change. * Patient developed diarrhea C. difficile ruled out Physical Exam Narrative: Very pleasant cooperative female Nonfocal neuro exam NIH 0 She is awake and alert Very pleasant and cooperative S1, S2 Saturating well on room air Abdomen soft Right foot covered with dressing Right leg swelling has improved to some extent as compared to yesterday EOMI, PERRLA asymmetrical right-sided pupil secondary to cataract VASCULAR: Dorsalis pedis +1 bilaterally posterior tibial arteries +1.? Capillary refill time less than 3 seconds to the distal hallux bilaterally. Calf is supple and nontender proximally and distally.? Decreased pedal hair growth.? Edema to the right ankle and foot.? Warmth at the right ankle and foot compared to the contralateral limb.? To the lower extremities present.? Dependent rubor to the feet. NEUROLOGICAL: Protective sensation intact 0/10 sites, tested with [place] monofilament to bilateral feet. DERMATOLOGICAL: Full-thickness wound probes near bone right plantar foot at rocker-bottom deformity.? Periwound erythema, serosanguineous drainage, cellulitis extending to the distal one third of the leg both medial and laterally.? No proximal lymphangitic streaking to the knee or thigh.? Cellulitis and erythema subsiding below skin marker. MUSCULOSKELETAL: No soft tissue crepitus to the right foot, ankle or leg.? Rocker-bottom foot deformity of the right this is stable.? Osseous prominence at the dorsal aspect of the right first metatarsal base.? Reducible hammertoe of the fifth bilaterally.? Ankle joint dorsiflexion 8 degrees bilaterally Urinary Catheter Management: Rodriguez: Cath Placed During This Visit: yes Reason for Continuing Indwelling Catheter: Acute Urinary Retention or Obstruction Urinary Catheter Date of Insertion: 09/20/21 Urinary Catheter Time of Insertion: 17:37 Discharge Data Studies Completed and Pending Completed Studies During Hospitalization Category Date Time Status CT foot RT wo con* [id number] Urgent Cat Scan 09/17/21 13:16 Completed CTA head neck [CT angio headneck* [id number]] Routine Cat Scan 09/20/21 10:00 Completed XR chest 1V portable [id number] Routine Exams 09/18/21 15:30 Completed XR chest 1V portable [id number] Stat Exams 09/18/21 13:55 Completed XR foot LT min 3V* [id number] Urgent Exams 09/17/21 12:00 Completed MR foot RT wo con* [id number] Stat MRI 09/21/21 Completed MR head wo con* [id number] Routine MRI 09/20/21 08:50 [place] [id number] Routine Ultrasound 09/20/21 10:12 Completed Pending at discharge Category Date Time Status Anaerobic Culture Routine Lab 09/17/21 16:58 Results Blood Culture Stat Lab 09/17/21 20:45 Results C DIFF [Clostridioides Difficile PCR] Routine Lab 09/22/21 09:32 Received Radiology Impressions Foot X-Ray 09/17/21 12:00 IMPRESSION: 1. Ulcer along the plantar aspect of the midfoot. There are foci of soft tissue gas along the plantar and lateral midfoot which could reflect necrotizing fasciitis. There is associated soft tissue swelling. No definite acute osseous destruction is seen to suggest osteomyelitis. Consider MRI to further assess if clinically warranted. 2. There is marked deformity of the midfoot with fusion of the proximal metatarsals and some of the tarsal bones. 3. Mild hallux valgus deformity. 4. Plantar calcaneal spur. ADDENDUM: 09/17/21 1249 Findings discussed with AVIS AIKEN at 09/17/2021 12:[address] 09/17/21 13:16 IMPRESSION: 1. No definite evidence of acute osteomyelitis. 2. Soft tissue ulceration along the plantar aspect of the foot laterally with a small fluid collection measuring 1.9 x 2.1 CM. This does not appear easily drainable. 3. Diffuse soft tissue infection mainly superficial due to cellulitis. Mild induration extending into the deep intramuscular soft tissues. A few small locules of air along the lateral ankle and peroneal sheath. This can be seen with early necrotizing fasciitis with gas producing organisms and recommend clinical correlation and interval follow-up. 4. Additional nonacute findings as described above. Chest X-Ray 09/18/21 15:30 Impression: Insertion of right PICC line. Head MRI 09/20/21 08:50 IMPRESSION: 1. Extremely limited evaluation of the brain due to extensive motion artifact. 2. No hemorrhage or acute infarcts identified. 3. Previously described and known small vessel ischemic disease is obscured by the motion artifact. 4. No midline shift. Head/Neck CTA 09/20/21 10:00 IMPRESSION: Calcified plaque and mild stenosis of the intracranial segments of the internal carotid arteries. No severe large vessel stenosis or occlusion. IMPRESSION: Moderate stenosis at the right carotid bulb and mild stenosis at the origin of the right internal carotid artery. No occlusion. COMMENTS: Consistent with the [employer]'s Incidental Findings Committee white paper (J Am Estrella Radiol 2015): In patients aged 35 years and older with an incidental thyroid nodule equal to or greater than 1.[address], MRI or extrathyroidal US, further evaluation with dedicated thyroid US is recommended for patients with normal life expectancy and without comorbidities. For smaller nodules without suspicious features, no further evaluation or follow up is recommended. REFERENCES: NASCET CRITERIA. The degree of internal carotid artery stenosis is based on NASCET criteria. Normal is no stenosis. Mild is less than 50% stenosis. Moderate is 50-69% stenosis. Severe is 70% to 99% stenosis. Total occlusion is no detectable patent lumen. Laboratory Results WBC 13.0 10^3/uL (4.0-10.0) H 09/22/21 04:10 RBC 3.63 10^6/uL (4.1-5.3) L 09/22/21 04:10 Hgb 10.5 g/dL (11.5-15.3) L 09/22/21 04:10 Hct 34.2 % (37.0-47.0) L 09/22/21 04:10 MCV 94.2 fl (81-99) 09/22/21 04:10 MCH 28.9 pg (28.0-34.0) 09/22/21 04:10 MCHC 30.7 g/dL (30.0-36.0) 09/22/21 04:10 RDW 19.7 % (12.1-15.1) H 09/22/21 04:10 Plt Count 706 10^3/cmm (130-400) H 09/22/21 04:10 MPV 10.3 fL (7.4-10.4) 09/22/21 04:10 Neut % (Auto) 75.2 % 09/22/21 04:10 Lymph % (Auto) 11.7 % 09/22/21 04:10 Stewart % (Auto) 6.3 % 09/22/21 04:10 Eos % (Auto) 3.7 % 09/22/21 04:10 Baso % (Auto) 0.7 % 09/22/21 04:10 Neut # (Auto) 9.76 10^3/uL (1.8-7.7) H 09/22/21 04:10 Lymph # (Auto) 1.5 10^3/uL (0.8-4.8) 09/22/21 04:10 Stewart # (Auto) 0.8 10^3/uL (0.2-0.9) 09/22/21 04:10 Eos # (Auto) 0.5 10^3/uL (0.0-0.8) 09/22/21 04:10 Baso # (Auto) 0.1 10^3/uL (0.0-0.1) 09/22/21 04:10 Nucleated RBC % (auto) 0 % 09/22/21 04:10 Nucleated RBCs # 0.0 /100WBC 09/22/21 04:10 ESR 84 mm/hr (0-15) H 09/17/21 12:30 Sodium 136 mmol/L (136-145) 09/22/21 04:10 Potassium 4.3 mmol/L (3.5-5.1) 09/22/21 04:10 Chloride 100 mmol/L (98-107) 09/22/21 04:10 Carbon Dioxide 27 mmol/L (22-29) 09/22/21 04:10 Anion Gap 13.3 (5-19) 09/22/21 04:10 BUN 21 mg/dL (8-23) 09/22/21 04:10 Creatinine 1.4 mg/dL (0.5-0.9) H 09/22/21 04:10 GFR Calculation Not Reportable 09/22/21 04:10 Glucose 123 mg/dL (65-115) H 09/22/21 04:10 POC Glucose 214 mg/dL (70-110) H 09/22/21 10:47 Estimat Average Glucose 189 09/17/21 20:45 Hemoglobin A1c 8.2 % (4.0-6.0) H 09/17/21 20:45 Calculated Osmolality 286 mOsm/kg (285-295) 09/22/21 04:10 Calcium 8.8 mg/dL (8.5-10.5) 09/22/21 04:10 Magnesium 1.7 mg/dL (1.7-2.3) 09/18/21 04:58 C-Reactive Protein 122.5 mg/L (0.0-4.9) H 09/19/21 03:34 Procalcitonin 0.25 ng/mL (0-0.5) 09/19/21 03:34 TSH 0.15 uIU/mL (0.27-4.20) L 09/20/21 04:06 Urine Color Yellow (Yellow) 09/19/21 01:27 Urine Appearance Sl hazy (CLEAR) 09/19/21 01:27 Urine pH 7 (5-7) 09/19/21 01:27 Ur Specific [place] 1.005 (1.005-1.030) 09/19/21 01:27 Urine Protein 1+ (Negative) H 09/19/21 01:27 Urine Glucose (UA) Norm (Normal) 09/19/21 01:27 Urine Ketones Negative (Negative) 09/19/21 01:27 Urine Blood 3+ (Negative) H 09/19/21 01:27 Urine Nitrate Negative (Negative) 09/19/21 01:27 Urine Bilirubin Neg (Negative) 09/19/21 01:27 Urine Urobilinogen Norm mg/dL (Negative) 09/19/21 01:27 Ur Leukocyte Esterase 2+ (Negative) H 09/19/21 01:27 Urine RBC 10-15 /hpf (0-2) H 09/19/21 01:27 Urine WBC 5-10 /hpf (0-5) H 09/19/21 01:27 Ur Squamous Epith Cells 15-25 /hpf (0-5) H 09/19/21 01:27 Amorphous Sediment Not Reportable 09/19/21 01:27 Urine Bacteria 1+ /hpf (NONE) H 09/19/21 01:27 Urine Mucus Trace /hpf 09/19/21 01:27 Urine Yeast 1+ /hpf H 09/19/21 01:27 Vancomycin Trough 16.9 ug/mL (10-15) H 09/20/21 23:02 Urine Opiates Screen Negative ng/mL (Negative) 09/19/21 01:27 Ur Barbiturates Screen Negative ng/mL (Negative) 09/19/21 01:27 Ur Phencyclidine Scrn Negative ng/mL (Negative) 09/19/21 01:27 Ur Amphetamines Screen Negative ng/mL (Negative) 09/19/21 01:27 U Benzodiazepines Scrn Negative ng/mL (Negative) 09/19/21 01:27 Urine Cocaine Screen Negative ng/mL (Negative) 09/19/21 01:27 U Marijuana (THC) Screen Negative ng/mL (Negative) 09/19/21 01:27 Additional Data from Hospital Stay Right foot MRI IMPRESSION: 1. Ulcer along the plantar aspect of the midfoot. 2. Findings suspicious for osteomyelitis involving the cuboid bone as well as the proximal 3rd, 4th and 5th metatarsals and mid to plantar calcaneus. 3. Edema in the distal fibula with minimal low T1 signal. This may reflect osteomyelitis or could be reactive secondary to adjacent peroneal tendon pathology. 4. Marked osseous deformity involving the bones of the midfoot and hindfoot which may relate to prior trauma or Charcot arthropathy. 5. Probable retrocalcaneal bursitis. Edema within the posterosuperior calcaneus is likely related to bursitis. 6. Subcutaneous edema involving the ankle and foot suspicious for cellulitis. 7. [id number] Achilles tendinosis. 8. Plantar fasciitis; portions of the plantar fascia are torn. 9. Moderate tendinosis of the posterior tibialis tendon with partial-thickness tearing at its insertion. 10. Severe tendinosis and tenosynovitis involving the peroneus longus tendon with an associated complete tear with retraction 11. Tenosynovitis of the peroneus brevis tendon. 12. Talonavicular joint effusion with fluid extending into the sinus tarsi. A small tibiotalar joint effusion is noted. 13. Marked tendinosis and tenosynovitis involving the anterior tibialis tendon with partial-thickness tearing distally. There is a small adjacent ganglion. 14. Tenosynovitis involving the extensor digitorum longus tendon. 15. Probable remote tear of the anterior talofibular ligament. Vitals Last Vital Signs Temp 98.1 F 09/22/21 11:05 Pulse 74 09/22/21 11:05 Resp 15 09/22/21 11:05 BP 139/72 09/22/21 11:05 Pulse Ox 97 09/22/21 11:05 Discharge Plan Discharge Patient Disposition: Home Condition: Stable Prescriptions: New vancomycin 1,000 mg recon soln 837 mg IV Q24H Qty: 1 0RF tramadol 50 mg tablet 25 mg PO Q6H PRN (Reason: pain) Qty: 10 0RF loperamide [Imodium A-D] 2 mg capsule 2 mg PO Q6H PRN (Reason: loose stool) Qty: 10 0RF Continued Tresiba FlexTouch U-200 200 unit/mL (3 mL) insulin pen 25 unit SUBCUT QAM 0RF amlodipine 10 mg tablet 10 mg PO DAILY Qty: 30 0RF cyanocobalamin (vitamin B-12) [Vitamin B-12] 2,500 mcg Tablet, Sublingual 2,500 mcg SUBLINGUAL DAILY 0RF clopidogrel [Plavix] 75 mg Tablet 75 mg PO DAILY 0RF acetaminophen 500 mg Tablet 500 mg PO Q6H PRN (Reason: pain) 0RF famotidine [Pepcid] 20 mg Tablet 20 mg PO BID 0RF metoprolol tartrate 50 mg Tablet 50 mg PO BID 0RF gabapentin 300 mg Capsule 300 mg PO BEDTIME 0RF Acidophilus Tablet,Chewable 1 tab PO DAILY 0RF hydroxyurea 500 mg capsule 500 mg PO EVERY OTHER DAY 0RF hydralazine 10 mg tablet 10 mg PO TID 0RF atorvastatin 20 mg tablet 20 mg PO DAILY 0RF baclofen 10 mg Tablet 20 mg PO BID PRN (Reason: Spasms) Qty: 0 0RF sertraline 50 mg tablet 50 mg PO DAILY Qty: 0 0RF aspirin 81 mg tablet,delayed release (DR/EC) 81 mg PO DAILY Qty: 90 0RF ergocalciferol (vitamin D2) [Vitamin D2] 1,250 mcg (50,000 unit) Capsule 1,250 mcg PO DAILY 0RF ondansetron 4 mg tablet,disintegrating 4 mg PO DAILY PRN (Reason: Nausea) 0RF calcitriol 0.25 mcg Capsule 0.25 mcg PO DAILY 0RF Lantus Solostar U-100 Insulin 100 unit/mL (3 mL) insulin pen See Rx Instructions .ROUTE .COMPLEX 0RF Rx Instructions: unit subcutaneously per sliding scale Discontinued ibuprofen 200 mg Tablet 200 mg PO Q6H PRN (Reason: Pain) 0RF lisinopril 5 mg tablet 5 mg PO DAILY 0RF ciprofloxacin HCl 500 mg tablet 500 mg PO DAILY 0RF Discharge Orders: Discharge Order (Routine); Ordered 09/22/21 Ordered By: Htatie Simon Other Ambulatory Orders: Vancomycin Trough (WEEKLY) Timeframe: 20211103 Facility: [facility] - Location: Lab - Main Lab Ordered By: Kuhn Alfred Vancomycin Trough (WEEKLY) Timeframe: 20211104 Facility: [facility] - Location: Lab - Main Lab Ordered By: Kuhn Alfred Vancomycin Trough (WEEKLY) Timeframe: 20211105 Facility: [facility] - Location: Lab - Main Lab Ordered By: Kuhn Alfred Vancomycin Trough (WEEKLY) Timeframe: 20211106 Facility: [facility] - Location: Lab - Main Lab Ordered By: Kuhn Alfred Vancomycin Trough (WEEKLY) Timeframe: 20211107 Facility: [facility] - Location: Lab - Main Lab Ordered By: Kuhn Alfred Vancomycin Trough (WEEKLY) Timeframe: 20211108 Facility: [facility] - Location: Lab - Main Lab Ordered By: Kuhn Alfred Vancomycin Trough (WEEKLY) Timeframe: 20210923 Facility: [facility] - Location: Lab - Main Lab Ordered By: Kuhn Alfred Vancomycin Trough (WEEKLY) Timeframe: [id number] Facility: [facility] - Location: Lab - Main Lab Ordered By: Kuhn Alfred Vancomycin Trough (WEEKLY) Timeframe: 20210925 Facility: [facility] - Location: Lab - Main Lab Ordered By: Kuhn Alfred Vancomycin Trough (WEEKLY) Timeframe: [id number] Facility: [facility] - Location: Lab - Main Lab Ordered By: Kuhn Alfred Vancomycin Trough (WEEKLY) Timeframe: 20210927 Facility: [facility] - Location: Lab - Main Lab Ordered By: Kuhn Alfred Vancomycin Trough (WEEKLY) Timeframe: [id number] Facility: [facility] - Location: Lab - Main Lab Ordered By: Kuhn Alfred Referrals: [facility] ([facility]) [Outside] Hank Nieto DPM [Physician] - 1-3 days Daniel Mae [Primary Care Provider] - 4-7 days Discharge Diet: Diabetic Discharge Activity: Limit activity as instructed and Wheelchair as instructed Patient Instructions: Tramadol (By mouth), Vancomycin (By mouth), Urinary Tract Infection in Women (DC), Osteomyelitis (DC), Leukocytosis (DC), Hypotension (DC), Hypertensive Crisis (DC), Opioid Safety Activity Restrictions/Additional Instructions: Home health orders: * PICC line management and IV vancomycin 6 weeks from the day of operation, weekly trough Vanco level * Daily dressing change.? Home health to perform dressing changes to the right foot 3 times weekly, patient is capable of changing the dressing the remaining days. * Dressing consisting of Aquacel Ag, Kerlix and 4 inch Anish wrap.? May substitute Aquacel Ag with alginate with silver that is in stock.? Will require supplies for daily dressing change. * Contact Dr. Nieto with any questions or concerns cell phone [phone]. Discharge Attestations Time Spent in Discharge Care*: less than 30 min Status at Discharge: Cognitive status at discharge: cognitively intact , Behavioral status at discharge: cooperative , Quality Metrics Clinical Quality Measures [ No reported AMI, CVA or VTE this stay] Coding Level of Care Code Acute Chg FW DC note Diagnoses Abscess of foot L02.619 Cellulitis of foot L03.119 Diabetic peripheral neuropathy associated with type 2 diabetes mellitus E11.42 Charcot's joint, right ankle and foot M14.671 Osteomyelitis of right foot M86.9
[2021-09-22] MEDS: enoxaparin 40 mg/0.4 mL Syringe SUBCUT (11:41)
== END 2021-09-22 16:57 | disposition home health service (06) | DRG 628 ==
LOC: ER 13:09 → MEDSURG 13:31
PROVIDERS: Internal Medicine; Podiatrist Foot & Ankle Surgery; Admitting Provider Internal Medicine; Emergency Provider Emergency Medicine; PCP Family Medicine; Visit Provider Internal Medicine
PROC: 0QBL0ZZ Excision of Right Tarsal, Open Approach (ICD-10-PCS; principal; 2021-09-17 16:30)
DX: E11.69 Type 2 diabetes mellitus with other specified complication (principal); G92.8 Other toxic encephalopathy; E11.52 Type 2 diabetes mellitus with diabetic peripheral angiopathy with gangrene; I96 Gangrene, not elsewhere classified; M86.171 Other acute osteomyelitis, right ankle and foot; L03.115 Cellulitis of right lower limb; E11.610 Type 2 diabetes mellitus with diabetic neuropathic arthropathy; E11.22 Type 2 diabetes mellitus with diabetic chronic kidney disease; E11.42 Type 2 diabetes mellitus with diabetic polyneuropathy; E11.621 Type 2 diabetes mellitus with foot ulcer; I12.9 Hypertensive chronic kidney disease with stage 1 through stage 4 chronic kidney disease, or unspecified chronic kidney disease; N18.9 Chronic kidney disease, unspecified; I25.10 Atherosclerotic heart disease of native coronary artery without angina pectoris; I69.920 Aphasia following unspecified cerebrovascular disease; Z87.440 Personal history of urinary (tract) infections; I65.29 Occlusion and stenosis of unspecified carotid artery; B95.62 Methicillin resistant Staphylococcus aureus infection as the cause of diseases classified elsewhere; B95.1 Streptococcus, group B, as the cause of diseases classified elsewhere; Z79.4 Long term (current) use of insulin; Z79.82 Long term (current) use of aspirin; T42.4X5A Adverse effect of benzodiazepines, initial encounter
CPT/HCPCS: 11043; 36415; 36416; 36569; 51702; 70496; 70498; 70551; 71045; 73630; 73700; 73718; 80048; 80202; 80306; 81001; 82962; 83036; 83735; 84145; 84443; 85025; 85651; 86140; 87040; 87070; 87075; 87077; 87176; 87186; 87205; 87493; 92523; 93005; 93971; 96365; 96367; 96372; 99213; 99285; J1650; J1815 ×2; J2060; J2405; J2543; J2704; J3010; J3370; J3480; J3490; J7030; J7050; Q9967

== ENCOUNTER → 2021-09-26 14:11 | Outpatient (BNVA) | payer MEDICARE, SELFPAY | PROVIDERS: PCP Family Medicine; Visit Provider Podiatrist Foot & Ankle Surgery | DX: E11.42 Type 2 diabetes mellitus with diabetic polyneuropathy (principal); M86.9 Osteomyelitis, unspecified; M14.671 Charcot's joint, right ankle and foot; N18.9 Chronic kidney disease, unspecified | CPT/HCPCS: 99213 ==

== ENCOUNTER 2021-09-26 14:55 | Outpatient (CLI) | payer MEDICARE, SELFPAY | END 2021-09-26 14:56 | disposition home or self-care (01) | LOC: SPT 14:55 | PROVIDERS: PCP Family Medicine; Visit Provider Podiatrist Foot & Ankle Surgery | DX: Z47.89 Encounter for other orthopedic aftercare (principal) | CPT/HCPCS: 97760; 99214; L4361 ==

== ENCOUNTER 2021-09-30 11:20 | Outpatient (CLI) | payer MEDICARE, SELFPAY ==
[2021-09-27 11:34] LABS: Basophils # 0.1 10^3/uL (0.0-0.1); Basophils % 0.7 %; Eosinophils # 0.2 10^3/uL (0.0-0.8); Eosinophils % 1.6 %; Hematocrit 30.1 % (37.0-47.0); Hemoglobin 9.3 g/dL (11.5-15.3); Lymphocytes # 1.3 10^3/uL (0.8-4.8); Mean Corpuscular HGB Conc 30.9 g/dL (30.0-36.0); Mean Corpuscular Hemoglobin 29.5 pg (28.0-34.0); Mean Corpuscular Volume 95.6 fl (81-99); Mean Platelet Volume 10.8 fL (7.4-10.4); Monocytes # 0.8 10^3/uL (0.2-0.9); Monocytes % 6.7 %; Neutrophils # 8.94 10^3/uL (1.8-7.7); Neutrophils % 77.2 %; Nucleated Red Blood Cells % 0 %; Platelet Count 694 10^3/cmm (130-400); Red Blood Count 3.15 10^6/uL (4.1-5.3); Red Cell Distribution Width 19.9 % (12.1-15.1); White Blood Count 11.6 10^3/uL (4.0-10.0)
[2021-09-27 11:49] LABS: Alanine Aminotransferase 8 U/L (0-33); Albumin Level 2.8 g/dL (3.5-5.2); Alkaline Phosphatase 91 IU/L (35-105); Anion Gap 14.3 (5-19); Aspartate Amino Transferase 14 U/L (0-32); Blood Urea Nitrogen 21 mg/dL (8-23); Calcium 8.7 mg/dL (8.5-10.5); Carbon Dioxide 26 mmol/L (22-29); Chloride 98 mmol/L (98-107); Globulin 4.5 g/dL (1.3-4.6); Glucose 322 mg/dL (65-115); Osmolality Calculated 293 mOsm/kg (285-295); Potassium 4.3 mmol/L (3.5-5.1); Sodium 134 mmol/L (136-145); Total Bilirubin 0.2 mg/dL (0.15-1.2); Total Protein 7.3 g/dL (6.6-8.7)
[2021-09-27 11:58] LABS: Vancomycin Trough 16.7 ug/mL (10-15)
[2021-09-30 11:36] LABS: Basophils # 0.1 10^3/uL (0.0-0.1); Basophils % 0.7 %; Eosinophils # 0.2 10^3/uL (0.0-0.8); Eosinophils % 1.9 %; Hematocrit 30.7 % (37.0-47.0); Hemoglobin 9.6 g/dL (11.5-15.3); Lymphocytes # 1.1 10^3/uL (0.8-4.8); Lymphocytes % 9.1 %; Mean Corpuscular HGB Conc 31.3 g/dL (30.0-36.0); Mean Corpuscular Hemoglobin 29.4 pg (28.0-34.0); Mean Corpuscular Volume 93.9 fl (81-99); Mean Platelet Volume 10.1 fL (7.4-10.4); Monocytes % 7.9 %; Neutrophils # 9.69 10^3/uL (1.8-7.7); Neutrophils % 77.7 %; Nucleated Red Blood Cells % 0 %; Platelet Count 622 10^3/cmm (130-400); Red Blood Count 3.27 10^6/uL (4.1-5.3); Red Cell Distribution Width 19.8 % (12.1-15.1); White Blood Count 12.5 10^3/uL (4.0-10.0)
[2021-09-30 11:57] LABS: Alanine Aminotransferase 7 U/L (0-33); Albumin Level 2.8 g/dL (3.5-5.2); Alkaline Phosphatase 117 IU/L (35-105); Blood Urea Nitrogen 21 mg/dL (8-23); Calcium 8.7 mg/dL (8.5-10.5); Carbon Dioxide 27 mmol/L (22-29); Chloride 95 mmol/L (98-107); Globulin 4.4 g/dL (1.3-4.6); Glucose 218 mg/dL (65-115); Osmolality Calculated 284 mOsm/kg (285-295); Sodium 132 mmol/L (136-145); Total Bilirubin 0.3 mg/dL (0.15-1.2); Total Protein 7.2 g/dL (6.6-8.7)
[2021-09-30 11:59] LABS: Aspartate Amino Transferase 14 U/L (0-32)
[2021-09-30 12:01] LABS: Vancomycin Trough 17.1 ug/mL (10-15)
== END 2021-09-30 11:21 | disposition home or self-care (01) ==
PROVIDERS: PCP Family Medicine; Visit Provider Family Medicine
DX: A49.02 Methicillin resistant Staphylococcus aureus infection, unspecified site (principal)
CPT/HCPCS: 80053; 80202; 85025

== ENCOUNTER → 2021-10-01 13:02 | Outpatient (BNVA) | payer MEDICARE, SELFPAY | PROVIDERS: PCP Family Medicine; Visit Provider Nurse Practitioner Family | DX: E11.621 Type 2 diabetes mellitus with foot ulcer (principal); L97.419 Non-pressure chronic ulcer of right heel and midfoot with unspecified severity; M86.8X7 Other osteomyelitis, ankle and foot | CPT/HCPCS: 99212; 99213 ==

== ENCOUNTER 2021-10-02 10:50 | Outpatient (CLI) | payer MEDICARE, SELFPAY ==
[2021-10-02 12:53] LABS: Prealbumin 7.8 mg/dL (20-40)
== END 2021-10-02 10:51 | disposition home or self-care (01) ==
LOC: LAB 10:54
PROVIDERS: PCP Family Medicine; Visit Provider Podiatrist Foot & Ankle Surgery
DX: A49.02 Methicillin resistant Staphylococcus aureus infection, unspecified site (principal)
CPT/HCPCS: 84134

== ENCOUNTER → 2021-10-03 15:34 | Outpatient (BNVA) | payer MEDICARE, SELFPAY | PROVIDERS: PCP Family Medicine; Visit Provider Podiatrist Foot & Ankle Surgery | DX: Z48.89 Encounter for other specified surgical aftercare (principal); M86.9 Osteomyelitis, unspecified; M14.671 Charcot's joint, right ankle and foot; E11.42 Type 2 diabetes mellitus with diabetic polyneuropathy; N18.9 Chronic kidney disease, unspecified; L97.414 Non-pressure chronic ulcer of right heel and midfoot with necrosis of bone; Z91.19 Patient's noncompliance with other medical treatment and regimen | CPT/HCPCS: 11043 ==

== ENCOUNTER 2021-10-07 11:22 | Outpatient (CLI) | payer MEDICARE, SELFPAY ==
[2021-10-07 12:04] LABS: Basophils # 0.1 10^3/uL (0.0-0.1); Basophils % 0.6 %; Eosinophils # 0.4 10^3/uL (0.0-0.8); Eosinophils % 3.9 %; Hematocrit 29.2 % (37.0-47.0); Hemoglobin 8.7 g/dL (11.5-15.3); Lymphocytes % 11.6 %; Mean Corpuscular HGB Conc 29.8 g/dL (30.0-36.0); Mean Corpuscular Hemoglobin 28.1 pg (28.0-34.0); Mean Corpuscular Volume 94.2 fl (81-99); Mean Platelet Volume 10.2 fL (7.4-10.4); Monocytes # 0.7 10^3/uL (0.2-0.9); Monocytes % 7.7 %; Neutrophils # 6.63 10^3/uL (1.8-7.7); Neutrophils % 74.3 %; Nucleated Red Blood Cells % 0 %; Platelet Count 637 10^3/cmm (130-400); Red Cell Distribution Width 19.7 % (12.1-15.1); White Blood Count 8.9 10^3/uL (4.0-10.0)
[2021-10-07 12:31] LABS: Alanine Aminotransferase 16 U/L (0-33); Albumin Level 2.7 g/dL (3.5-5.2); Alkaline Phosphatase 119 IU/L (35-105); Blood Urea Nitrogen 26 mg/dL (8-23); Calcium 8.7 mg/dL (8.5-10.5); Carbon Dioxide 27 mmol/L (22-29); Chloride 98 mmol/L (98-107); Globulin 4.4 g/dL (1.3-4.6); Glucose 327 mg/dL (65-115); Osmolality Calculated 295 mOsm/kg (285-295); Sodium 134 mmol/L (136-145); Total Bilirubin 0.2 mg/dL (0.15-1.2); Total Protein 7.1 g/dL (6.6-8.7)
[2021-10-07 12:32] LABS: Vancomycin Trough 13.6 ug/mL (10-15)
[2021-10-07 12:45] LABS: Anion Gap 13.4 (5-19); Aspartate Amino Transferase 22 U/L (0-32); Potassium 4.4 mmol/L (3.5-5.1)
== END 2021-10-07 11:23 | disposition home or self-care (01) ==
LOC: LAB 11:25
PROVIDERS: PCP Family Medicine; Visit Provider Podiatrist Foot & Ankle Surgery
DX: M86.9 Osteomyelitis, unspecified (principal)
CPT/HCPCS: 80053; 80202; 85025

== ENCOUNTER → 2021-10-07 13:05 | Outpatient (BNVA) | payer MEDICARE, SELFPAY | PROVIDERS: PCP Family Medicine | DX: E11.622 Type 2 diabetes mellitus with other skin ulcer (principal); L97.806 Non-pressure chronic ulcer of other part of unspecified lower leg with bone involvement without evidence of necrosis | CPT/HCPCS: 99212 ==

== ENCOUNTER 2021-10-08 14:23 | Outpatient (CLI) | payer MEDICARE, SELFPAY ==
--- NOTE | 2021-10-08 15:00 | ECG_ITS ---
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 Measurements Intervals [place] Rate: 72 P: 4 GA: 158 QRS: -25 QRSD: 98 T: 38 QT: 428 QTc: 470 Interpretive Statements SINUS RHYTHM POSSIBLE LEFT ATRIAL ENLARGEMENT [-0.1mV P WAVE IN V1/V2] BORDERLINE LEFT AXIS DEVIATION [QRS AXIS < -20] POSSIBLE LEFT VENTRICULAR HYPERTROPHY [VOLTAGE CRITERIA PLUS LAE OR QRS WIDENING] Compared to ECG 09/17/2021 12:18:02 T-wave abnormality no longer present Electronically Signed On 10-08-2021 17:57:37 CDT by Shakir Vargas M.D. [id number]
== END 2021-10-08 14:24 | disposition home or self-care (01) ==
LOC: LAB 14:28
PROVIDERS: PCP Family Medicine; Visit Provider Specialist
DX: Z01.810 Encounter for preprocedural cardiovascular examination (principal)
CPT/HCPCS: 93005

== ENCOUNTER → 2021-10-10 14:45 | Outpatient (BNVA) | payer MEDICARE, SELFPAY | PROVIDERS: PCP Family Medicine; Visit Provider Nurse Practitioner Family | DX: E11.621 Type 2 diabetes mellitus with foot ulcer (principal); L97.413 Non-pressure chronic ulcer of right heel and midfoot with necrosis of muscle; I96 Gangrene, not elsewhere classified | CPT/HCPCS: 11042 ==

== ENCOUNTER → 2021-10-14 08:49 | Outpatient (BNVA) | payer MEDICARE, SELFPAY | PROVIDERS: PCP Family Medicine | DX: B95.62 Methicillin resistant Staphylococcus aureus infection as the cause of diseases classified elsewhere; E11.621 Type 2 diabetes mellitus with foot ulcer; L97.416 Non-pressure chronic ulcer of right heel and midfoot with bone involvement without evidence of necrosis; M86.171 Other acute osteomyelitis, right ankle and foot | CPT/HCPCS: 80053; 80202; 85025; G0277 ==

== ENCOUNTER 2021-10-14 15:40 | Outpatient (CLI) | payer MEDICARE, SELFPAY ==
[2021-10-14 17:11] LABS: Basophils # 0.1 10^3/uL (0.0-0.1); Basophils % 0.5 %; Eosinophils # 0.4 10^3/uL (0.0-0.8); Eosinophils % 3.6 %; Hematocrit 30.3 % (37.0-47.0); Lymphocytes # 1.5 10^3/uL (0.8-4.8); Lymphocytes % 14.6 %; Mean Corpuscular HGB Conc 29.7 g/dL (30.0-36.0); Mean Corpuscular Hemoglobin 27.5 pg (28.0-34.0); Mean Corpuscular Volume 92.7 fl (81-99); Mean Platelet Volume 10.5 fL (7.4-10.4); Monocytes # 0.8 10^3/uL (0.2-0.9); Neutrophils # 7.39 10^3/uL (1.8-7.7); Neutrophils % 71.5 %; Nucleated Red Blood Cells % 0 %; Platelet Count 594 10^3/cmm (130-400); Red Blood Count 3.27 10^6/uL (4.1-5.3); Red Cell Distribution Width 19.6 % (12.1-15.1); White Blood Count 10.3 10^3/uL (4.0-10.0)
[2021-10-14 17:25] LABS: Alanine Aminotransferase 19 U/L (0-33); Albumin Level 3.1 g/dL (3.5-5.2); Alkaline Phosphatase 135 IU/L (35-105); Aspartate Amino Transferase 26 U/L (0-32); Blood Urea Nitrogen 33 mg/dL (8-23); Calcium 8.8 mg/dL (8.5-10.5); Carbon Dioxide 26 mmol/L (22-29); Chloride 95 mmol/L (98-107); Glucose 214 mg/dL (65-115); Osmolality Calculated 296 mOsm/kg (285-295); Sodium 136 mmol/L (136-145); Total Bilirubin 0.2 mg/dL (0.15-1.2); Total Protein 7.1 g/dL (6.6-8.7)
[2021-10-14 17:33] LABS: Anion Gap 19.1 (5-19); Potassium 4.1 mmol/L (3.5-5.1)
[2021-10-14 17:49] LABS: Vancomycin Trough 17.2 ug/mL (10-15)
== END 2021-10-14 15:41 | disposition home or self-care (01) ==
PROVIDERS: PCP Family Medicine; Visit Provider Family Medicine
DX: B95.62 Methicillin resistant Staphylococcus aureus infection as the cause of diseases classified elsewhere (principal)
CPT/HCPCS: 80053; 80202; 85025

== ENCOUNTER → 2021-10-15 09:00 | Outpatient (BNVA) | payer MEDICARE, SELFPAY | PROVIDERS: PCP Family Medicine | DX: E11.622 Type 2 diabetes mellitus with other skin ulcer (principal); L98.495 Non-pressure chronic ulcer of skin of other sites with muscle involvement without evidence of necrosis | CPT/HCPCS: G0277 ==

== ENCOUNTER → 2021-10-16 08:49 | Outpatient (BNVA) | payer MEDICARE, SELFPAY | PROVIDERS: PCP Family Medicine | DX: E11.622 Type 2 diabetes mellitus with other skin ulcer (principal); L97.513 Non-pressure chronic ulcer of other part of right foot with necrosis of muscle | CPT/HCPCS: G0277 ==

== ENCOUNTER 2021-10-16 16:20 | Emergency (ER) | payer MEDICARE, SELFPAY ==
[2021-10-16 16:51] VITALS: BP 131/76; PULSE 97; RESP 18; TEMP 36.5; O2SAT 96; BMI 26.2
--- NOTE | 2021-10-16 17:16 | XRR_ITS ---
PROCEDURE INFORMATION: Exam: XR Chest Exam date and time: 10/16/2021 5:30 PM Age: 75 years old Clinical indication: Other: Not acting normal; Additional info: AMS TECHNIQUE: Imaging protocol: Radiologic exam of the chest. Views: 1 view. COMPARISON: CR XR chest 1V portable [id number] 09/18/2021 2:00 PM FINDINGS: Tubes, catheters and devices: Distal aspect of the PICC line is positioned over the superior vena cava. Lungs: Unremarkable. No consolidation. Pleural spaces: Unremarkable. No pleural effusion. No pneumothorax. Heart/Mediastinum: Possible cardiomegaly. Vasculature: There is calcified plaque in the aortic knob similar to the prior study. Bones/joints: Unremarkable. XR/XR chest 1V portable [id number] IMPRESSION: Possible cardiomegaly.Heart size not optimally evaluated with a single AP view of the chest.
--- NOTE | 2021-10-16 17:17 | ECG_ITS ---
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 Measurements Intervals [place] Rate: 75 P: 21 GA: 164 QRS: -28 QRSD: 98 T: 62 QT: 406 QTc: 456 Interpretive Statements SINUS RHYTHM BORDERLINE LEFT AXIS DEVIATION [QRS AXIS < -20] VOLTAGE CRITERIA FOR LVH [MEETS CRITERIA IN ONE OF: R(aVL), S(V1), R(V5), R(V5/V6)+S(V1)] NONSPECIFIC T-WAVE ABNORMALITY Compared to ECG 10/08/2021 14:47:44 T-wave abnormality now present Electronically Signed On 10-16-2021 22:13:22 CDT by Briana Westfall M.D. [id number]
--- NOTE | 2021-10-16 17:18 | ED_ITS ---
HPI - General Adult General: Chief complaint: Nausea/Vomiting/Diarrhea Stated complaint: NOT ACTING RIGHT Time Seen by Provider: 10/16/21 16:59 History of Present Illness: Patient is a 75-year-old female with a history of right-sided diabetic foot ulcer on vancomycin via PICC, CKD, prior CVA who presents to the emergency room for evaluation of lightheadedness and fatigue after receiving hyperbaric treatment earlier today. Patient tells me today was day 3 of her hyperbaric treatment. Patient reported going to the hyperbaric treatment around 9 AM today and completing 90 minutes of hyperbaric session and became lightheaded and fatigued afterwards. Patient reported mild headache followed by fatigue. Patient tells me that she has been feeling well throughout the day and then came to the emergency room for an evaluation. Patient denies any chest pain, shortness breath, palpitation, nausea/vomiting fever/chills, abdominal complaints, complaints at this time. Onset: 11:30am after hyperbaric sesion Duration:ongoing Location:home Severity:moderate Associated symptoms: Reports malaise; Deny chest pain, dyspnea, nausea, rash, palpitations or vomiting Review of Systems Const: Reports: fatigue and malaise; Denies: fever(s) or chills Eyes: Denies: change in vision ENMT: Denies: mouth pain Card: Denies: chest pain or palpitations Resp: Denies: dyspnea or non-productive cough GI: Denies: abdominal pain, nausea, vomiting or diarrhea : Denies: dysuria Musc: Denies: extremity pain Skin/Breast: Denies: rash or new lesions Neuro: Reports: other (+light-headedness); Denies: weakness in extremities Psych: Reports: other (Normal mood) Toño/Lymph: Denies: easy bruising PFSH ED PFSH: Medical History Acute CVA (cerebrovascular accident) Acute cystitis Acute kidney injury superimposed on chronic kidney disease Aphasia Aspiration pneumonitis Carotid artery disease Carotid artery stenosis Cerebrovascular accident Patient with ongoing aphasia Charcot foot due to diabetes mellitus Chronic kidney disease Coronary artery disease Diabetes Diabetic foot ulcer Diabetic peripheral neuropathy associated with type 2 diabetes mellitus History of hyperbaric oxygen therapy Hypertension Osteomyelitis PUD (peptic ulcer disease) Sepsis Stroke UTI (urinary tract infection) Surgical History S/P carotid endarterectomy S/P PICC central line placement Patient had tunneled left subclavian central line for IV antibiotics for osteomyelitis which was removed by Dr. Zelaya 2016 Family History Other Family history non-contributory Social History Smoking and tobacco status: never smoked Alcohol intake: never Household members: family Housing: House History of recent travel: No Physical Exam Const: COMMON NORMALS: alert HENMT: COMMON NORMALS: atraumatic HEAD & SCALP: atraumatic MOUTH: moist mucous membranes not abnormal Eye: COMMON NORMALS: EOMs intact bilaterally and conjunctivae normal CONJUNCTIVA: Yes conjunctivae normal Neck/C-Spine: COMMON NORMALS: full ROM and supple Resp: COMMON NORMALS: normal respiratory effort and clear to auscultation bilaterally AUSCULTATION: clear to auscultation bilaterally Cardio: COMMON NORMALS: regular rate RATE: regular rate GI: COMMON NORMALS: Soft to palpation and non-tender PALPATION: Yes Soft to palpation Extremity: COMMON NORMALS: full ROM Neuro: SENSORIUM/ORIENTATION: Yes alert MOTOR EXAM: No Abnormal motor strength present and Other motor observations present (no focal motor deficits) OTHER: Mental status? Awake, alert, and oriented to self, year, month, location, and situation.? Following simple axial and appendicular commands.? Has appropriate fund of knowledge, comprehension, and insight.? Able to recall and understands pertinent aspects of medical history and current treatment status.? ? Language? Speech is fluent without word-finding difficulties.? Intact naming, expression, executive receptionist, and repetition.? ? Cranial nerves? 2,3,4,6: PERRL, EOMI with no nystagmus. 5: Intact sensation to light touch, symmetric? 7: Smile symmetrical, no facial droop.? 8: Hearing grossly intact.? 9,10: Normal palate movement.? 11: Normal strength in trapezius bilaterally 12: Tongue protrudes midline.? ? Motor examination? Normal bulk & tone. Strength as follows (R/L): Delts (5/5), Biceps (5/5), Triceps (5/5), Wrist ext (5/5), hip flexors (5/5), plantarflexors (5/5), dorsiflexors (5/5). ? Sensation? Light Touch: Grossly intact and equal in upper and lower extremities bilaterally? Romberg: Negative.? Distal joint position sense intact ? Coordination? Cjubmc-pf-whmm-finger movements intact without dysmetria or past-pointing.? Rapid fingertaps: preserved amplitude without decriment.? No tremor, myoclonus or truncal ataxia.? ? Gait/stance? Steady, normal narrow base gait with appropriate arm swing and turning.? Tandem gait without hesitation or loss of balance. Psych: COMMON NORMALS: speech normal SPEECH: Yes normal speech MOOD & AFFECT: Yes euthymic mood Course Vital Signs: Vital signs: Vital Signs Temperature 97.7 F 10/16/21 16:51 Pulse Rate 63 10/17/21 01:13 Respiratory Rate 16 10/17/21 01:13 Blood Pressure 122/54 10/17/21 01:13 Pulse Oximetry 94 10/17/21 01:13 [facility] - General Adult Medical Decision Making 75-year-old female with history of prior CVA, diabetic foot ulcer currently on daily vancomycin infusion for MRSA presenting to emergency room for concerns of lightheadedness and fatigue after completing hyperbaric treatment around 1130 today. Patient on physical exam has no focal findings. Neuro exam is intact. Hemodynamically stable. Patient is noted to have a white count 10.9. Hemoglobin 8.3 similar to baseline. Creatinine of 1.9 similar to baseline of 1-2. D-dimer is elevated, Given hypoxemia at 91-92% and lightheadedness in the setting of elevated D- dimer, I have performed shared decision for CTA. I have explained to patient that there is risk of contrast to her kidney which include possible further deterioration from the contrast. I have explained the alternative of not performing the CT scan, which include close followup. Patient informs that she would like to proceed to make sure that we are not missing a blood clot. Patient agrees with plan for CT scan for further evaluation to ensure that she does not have any blood clot. I explained to patient given her creatinine elevation, we will rehydrate her. Patient tells me she will have her follow-up closely. Patient verbalizes understanding of the risks today which includes kidney injuries and and possible kidney failure including dialysis. Patient received 1L of IVF. CT head negative for any acute finding. Disposition: Discharge. Patient counseled regarding diagnostic impression, treatment plan. Patient given ED strict return precautions to return for continuation, worsening, or development of new symptoms. Instructed to f/u w/ PCP regarding symptoms today. Patient verbalized understanding. Lab Data : 10/16/21 17:39 10/16/21 17:39 Radiology Impressions Chest X-Ray 10/16/21 17:16 IMPRESSION: Possible cardiomegaly.Heart size not optimally evaluated with a single AP view of the chest. Head CT 10/16/21 18:14 IMPRESSION: There are senescent changes of the brain as described above. No evidence for large acute ischemic infarction or acute intracranial injury. Chest CTA 10/16/21 18:58 IMPRESSION: 1. Cardiomegaly. 2. Multivessel atherosclerotic disease which involves the coronary arteries. 3. Mild splenomegaly. 4. There are are small stones and/or sludge in the gallbladder. Laboratory Results WBC 10.9 10^3/uL (4.0-10.0) H 10/16/21 17:39 RBC 2.99 10^6/uL (4.1-5.3) L 10/16/21 17:39 Hgb 8.3 g/dL (11.5-15.3) L 10/16/21 17:39 Hct 26.7 % (37.0-47.0) L 10/16/21 17:39 MCV 89.3 fl (81-99) 10/16/21 17:39 MCH 27.8 pg (28.0-34.0) L 10/16/21 17:39 MCHC 31.1 g/dL (30.0-36.0) 10/16/21 17:39 RDW 19.7 % (12.1-15.1) H 10/16/21 17:39 Plt Count 548 10^3/cmm (130-400) H 10/16/21 17:39 MPV 10.2 fL (7.4-10.4) 10/16/21 17:39 Neut % (Auto) 72.3 % 10/16/21 17:39 Lymph % (Auto) 14.5 % 10/16/21 17:39 [place] % (Auto) 7.4 % 10/16/21 17:39 Eos % (Auto) 3.7 % 10/16/21 17:39 Baso % (Auto) 0.5 % 10/16/21 17:39 Neut # (Auto) 7.87 10^3/uL (1.8-7.7) H 10/16/21 17:39 Lymph # (Auto) 1.6 10^3/uL (0.8-4.8) 10/16/21 17:39 [place] # (Auto) 0.8 10^3/uL (0.2-0.9) 10/16/21 17:39 Eos # (Auto) 0.4 10^3/uL (0.0-0.8) 10/16/21 17:39 Baso # (Auto) 0.1 10^3/uL (0.0-0.1) 10/16/21 17:39 Nucleated RBC % (auto) 0 % 10/16/21 17:39 Nucleated RBCs # 0.0 /100WBC 10/16/21 17:39 D-Dimer 2.04 ug/mIFEU (0-0.59) H 10/16/21 17:35 Specimen Type Arterial 10/16/21 17:31 Sample Site Radial, left 10/16/21 17:31 ABG pH 7.41 (7.35-7.45) 10/16/21 17:31 ABG pCO2 37.9 mmHg (35-45) 10/16/21 17:31 ABG pO2 69.0 mmHg (80.0-100.0) L 10/16/21 17:31 ABG HCO3 23.9 mmol/L (22-26) 10/16/21 17:31 ABG O2 Saturation 93.8 10/16/21 17:31 ABG Base Excess -0.6 mmol/L (-2.0-2.0) 10/16/21 17:31 Riki Test Pos 10/16/21 17:31 A-a O2 Gradient 4.3 mmHg (5-10) L 10/16/21 17:31 Hematocrit 26.9 % (37-47) L 10/16/21 17:31 Hgb O2 Saturation 92.2 % (95-100) L 10/16/21 17:31 Carboxyhemoglobin 1.1 %THgb (0.4-20.1) 10/16/21 17:31 Methemoglobin 0.6 % (0.4-1.5) 10/16/21 17:31 Total Hemoglobin 8.8 g/dL (12-16) L 10/16/21 17:31 Sodium 139.0 mmol/L (131-143) 10/16/21 17:31 Potassium 3.9 mmol/L (3.5-5.0) 10/16/21 17:31 Glucose 210.0 mg/dL (70-115) H 10/16/21 17:31 Ionized Calcium 1.2 mmol/L (1.1-1.4) 10/16/21 17:31 O2 Delivery Device Room air 10/16/21 17:31 FiO2 21.0 % 10/16/21 17:31 Railroad Car Painter ID [place]ro 10/16/21 17:31 Sodium 137 mmol/L (136-145) 10/16/21 17:39 Potassium 4.1 mmol/L (3.5-5.1) 10/16/21 17:39 Chloride 100 mmol/L (98-107) 10/16/21 17:39 Carbon Dioxide 25 mmol/L (22-29) 10/16/21 17:39 Anion Gap 16.1 (5-19) 10/16/21 17:39 BUN 50 mg/dL (8-23) H 10/16/21 17:39 Creatinine 1.9 mg/dL (0.5-0.9) H 10/16/21 17:39 GFR Calculation Not Reportable 10/16/21 17:39 Glucose 209 mg/dL (65-115) H 10/16/21 17:39 Calculated Osmolality 303 mOsm/kg (285-295) H 10/16/21 17:39 Calcium 9.0 mg/dL (8.5-10.5) 10/16/21 17:39 Total Bilirubin 0.2 mg/dL (0.15-1.2) 10/16/21 17:39 AST 14 U/L (0-32) 10/16/21 17:39 ALT 13 U/L (0-33) 10/16/21 17:39 Alkaline Phosphatase 131 IU/L (35-105) H 10/16/21 17:39 Ammonia 14 umol/L (11-51) 10/16/21 17:35 Troponin T Baseline 25 ng/L (0-10) H 10/16/21 17:39 Troponin T 120 Minute 25.01 ng/L (0-10) H 10/16/21 19:07 Delta Troponin T 0.01 ABS# (0-10) 10/16/21 19:07 Total Protein 6.9 g/dL (6.6-8.7) 10/16/21 17:39 Albumin 3.2 g/dL (3.5-5.2) L 10/16/21 17:39 Globulin 3.7 g/dL (1.3-4.6) 10/16/21 17:39 Lipase 31 U/L (13-60) 10/16/21 17:39 TSH 0.36 uIU/mL (0.27-4.20) 10/16/21 17:35 Free T4 1.04 ng/dL (0.82-1.77) 10/16/21 17:35 Urine Color Yellow (Yellow) 10/16/21 17:53 Urine Appearance Clear (CLEAR) 10/16/21 17:53 Urine pH 5 (5-7) 10/16/21 17:53 Ur Specific Brinkley 1.020 (1.005-1.030) 10/16/21 17:53 Urine Protein 1+ (Negative) H 10/16/21 17:53 Urine Glucose (UA) 1+ (Normal) H 10/16/21 17:53 Urine Ketones Negative (Negative) 10/16/21 17:53 Urine Blood Neg (Negative) 10/16/21 17:53 Urine Nitrate Negative (Negative) 10/16/21 17:53 Urine Bilirubin Neg (Negative) 10/16/21 17:53 Urine Urobilinogen Norm mg/dL (Negative) 10/16/21 17:53 Ur Leukocyte Esterase Negative (Negative) 10/16/21 17:53 Urine RBC 0-4 /hpf (0-2) H 10/16/21 17:53 Urine WBC 0-4 /hpf (0-5) H 10/16/21 17:53 Ur Squamous Epith Cells 0-4 /hpf (0-5) H 10/16/21 17:53 Amorphous Sediment 1+ /hpf 10/16/21 17:53 Urine Bacteria 1+ /hpf (NONE) H 10/16/21 17:53 Salicylates < 0.3 mg/dL (3-10) L 10/16/21 17:35 Acetaminophen < 5.0 ug/mL (10-30) L 10/16/21 17:35 Discharge Plan Discharge Patient Disposition: Home Clinical Impression: Altered mental status, Anemia, Chronic wound of extremity, Creatinine elevation Condition: Stable Prescriptions: No Action (DME) Short CAM Boot to the Left Medium See Rx Instructions .Route .MEDSUPPLY Qty: 1 0RF Rx Instructions: As directed Tresiba FlexTouch U-200 200 unit/mL (3 mL) insulin pen 25 unit SUBCUT QAM 0RF amlodipine 10 mg tablet 10 mg PO DAILY Qty: 30 0RF cyanocobalamin (vitamin B-12) [Vitamin B-12] 2,500 mcg Tablet, Sublingual 2,500 mcg SUBLINGUAL DAILY 0RF clopidogrel [Plavix] 75 mg Tablet 75 mg PO DAILY 0RF acetaminophen 500 mg Tablet 500 mg PO Q6H PRN (Reason: pain) 0RF famotidine [Pepcid] 20 mg Tablet 20 mg PO BID 0RF metoprolol tartrate 50 mg Tablet 50 mg PO BID 0RF gabapentin 300 mg Capsule 300 mg PO BEDTIME 0RF Acidophilus Tablet,Chewable 1 tab PO DAILY 0RF hydroxyurea 500 mg capsule 500 mg PO EVERY OTHER DAY 0RF hydralazine 10 mg tablet 10 mg PO TID 0RF atorvastatin 20 mg tablet 20 mg PO DAILY 0RF baclofen 10 mg Tablet 20 mg PO BID PRN (Reason: Spasms) Qty: 0 0RF sertraline 50 mg tablet 50 mg PO DAILY Qty: 0 0RF aspirin 81 mg tablet,delayed release (DR/EC) 81 mg PO DAILY Qty: 90 0RF ergocalciferol (vitamin D2) [Vitamin D2] 1,250 mcg (50,000 unit) Capsule 1,250 mcg PO DAILY 0RF ondansetron 4 mg tablet,disintegrating 4 mg PO DAILY PRN (Reason: Nausea) 0RF calcitriol 0.25 mcg Capsule 0.25 mcg PO DAILY 0RF insulin glargine [Lantus Solostar U-100 Insulin] 100 unit/mL (3 mL) insulin pen See Rx Instructions .ROUTE .COMPLEX 0RF Rx Instructions: unit subcutaneously per sliding scale vancomycin 1,000 mg recon soln 837 mg IV Q24H Qty: 1 0RF tramadol 50 mg tablet 25 mg PO Q6H PRN (Reason: pain) Qty: 10 0RF loperamide [Imodium A-D] 2 mg capsule 2 mg PO Q6H PRN (Reason: loose stool) Qty: 10 0RF diazepam 5 mg Tablet 5 mg PO DAILY PRN (Reason: Anxiety) 0RF Discharge Orders: Discharge ED (Routine); Ordered 10/17/21 Ordered By: Robert Flowers Referrals: Daniel Mae [Primary Care Provider] - Discharge Diet: Usual diet Discharge Activity: Increase activity as tolerated Patient Instructions: Chronic Kidney Disease (ED), Altered Mental Status (ED), Anemia (ED), Chronic Wounds (ED) Activity Restrictions/Additional Instructions: Thank you for visiting the emergency department. You were seen and evaluated for altered mental status. The exact cause of your symptoms is unclear though we are pleased that you feel improved. Laboratory studies appear fairly similar to prior including anemia and chronic kidney disease. Please follow-up with your primary care provider. Please return to the emergency department for recurrence of symptoms, any new neurologic symptoms, or anything else that you are concerned about a feel needs emergency department evaluation. Coding Level of Care Code ED Specimen Preparation Assistant for Cheri Fwd Exam Comprehensive
[2021-10-16 17:42] LABS: ABG PCO2 37.9 mmHg (35-45); ABG PH Result 7.41 (7.35-7.45); Alveolar-Arterial Oxygen Gradi 4.3 mmHg (5-10); Arterial Blood Gas Hematocrit 26.9 % (37-47); Base Excess ABG -0.6 mmol/L (-2.0-2.0); Blood Gas Allen Test Pos; Blood Gas Sample Type Arterial; Carboxyhemoglobin 1.1 %THgb (0.4-20.1); HCO3 ABG 23.9 mmol/L (22-26); HGB O2 Sat 92.2 % (95-100); Ionized Calcium Level - ABG 1.2 mmol/L (1.1-1.4); Methemoglobin 0.6 % (0.4-1.5); Oxygen Saturation ABG 93.8; Potassium Level - ABG 3.9 mmol/L (3.5-5.0); Total Hemoglobin 8.8 g/dL (12-16)
[2021-10-16 17:44] LABS: Blood Gas Operator Identificat MONRO; Blood Gas Sample Site Radial, left; Oxygen Device ROOM AIR
[2021-10-16 17:55] VITALS: BP 138/52; PULSE 73; RESP 16; O2SAT 93
[2021-10-16 18:13] LABS: Basophils # 0.1 10^3/uL (0.0-0.1); Basophils % 0.5 %; Eosinophils # 0.4 10^3/uL (0.0-0.8); Eosinophils % 3.7 %; Hematocrit 26.7 % (37.0-47.0); Hemoglobin 8.3 g/dL (11.5-15.3); Lymphocytes # 1.6 10^3/uL (0.8-4.8); Lymphocytes % 14.5 %; Mean Corpuscular HGB Conc 31.1 g/dL (30.0-36.0); Mean Corpuscular Hemoglobin 27.8 pg (28.0-34.0); Mean Corpuscular Volume 89.3 fl (81-99); Mean Platelet Volume 10.2 fL (7.4-10.4); Monocytes # 0.8 10^3/uL (0.2-0.9); Monocytes % 7.4 %; Neutrophils # 7.87 10^3/uL (1.8-7.7); Neutrophils % 72.3 %; Nucleated Red Blood Cells % 0 %; Platelet Count 548 10^3/cmm (130-400); Red Blood Count 2.99 10^6/uL (4.1-5.3); Red Cell Distribution Width 19.7 % (12.1-15.1); White Blood Count 10.9 10^3/uL (4.0-10.0)
--- NOTE | 2021-10-16 18:14 | CTR_ITS ---
PROCEDURE INFORMATION: Exam: CT Head Without Contrast Exam date and time: 10/16/2021 6:52 PM Age: 75 years old Clinical indication: Altered mental status/memory loss and dizziness; TECHNIQUE: Imaging protocol: Computed tomography of the head without contrast. Radiation optimization: All CT scans at this facility use at least one of these dose optimization techniques: automated exposure control; mA and/or kV adjustment per patient size (includes targeted exams where dose is matched to clinical indication); or iterative reconstruction. COMPARISON: MR head wo con* [id number] 09/20/2021 1:08 PM RADIATION DOSE METRICS: Total DLP (mGy-cm): 1036.09 FINDINGS: Brain: Calcified plaque is present within the intracranial vasculature. There is mild diffuse cerebral atrophy present, consistent with this patient's age. Periventricular and subcortical white matter low densities are present which at this age likely represent microvascular ischemic change. There chronic lacunar infarcts in the left thalamus and left lentiform nucleus.No evidence for large acute ischemic infarction. Please note acute ischemia can be occult by head CT. Cerebral ventricles: No ventriculomegaly. Paranasal sinuses: Visualized sinuses are unremarkable. No fluid levels. Mastoid air cells: Visualized mastoid air cells are well aerated. Bones/joints: Unremarkable. No acute fracture. Soft tissues: Unremarkable. CT/CT head wo con* [id number] IMPRESSION: There are senescent changes of the brain as described above. No evidence for large acute ischemic infarction or acute intracranial injury.
[2021-10-16 18:18] LABS: Add Urine Microscopic? YES; Bilirubin Urine Neg (Negative); Blood Urine Neg (Negative); Glucose Urine UA 1+ (Normal); Ketones Urine Negative (Negative); Leukocyte Esterase Urine Negative (Negative); Nitrate Urine Negative (Negative); Protein Urine 1+ (Negative); Urine Appearance Clear (CLEAR); Urine Color Yellow (Yellow); Urobilinogen Urine Norm (Negative); pH Urine 5 (5-7)
[2021-10-16 18:19] LABS: Add Urine Culture? No; Amorphous Sediment Urine 1+ /hpf; Bacteria Urine 1+ /hpf; RBC Urine 0-4 /hpf (0-2); Squamous Epithelial Cell Urine 0-4 /hpf (0-5); WBC Urine 0-4 /hpf (0-5)
[2021-10-16 18:31] LABS: Alanine Aminotransferase 13 U/L (0-33); Albumin Level 3.2 g/dL (3.5-5.2); Alkaline Phosphatase 131 IU/L (35-105); Anion Gap 16.1 (5-19); Aspartate Amino Transferase 14 U/L (0-32); Blood Urea Nitrogen 50 mg/dL (8-23); Carbon Dioxide 25 mmol/L (22-29); Chloride 100 mmol/L (98-107); Globulin 3.7 g/dL (1.3-4.6); Glucose 209 mg/dL (65-115); Lipase 31 U/L (13-60); Osmolality Calculated 303 mOsm/kg (285-295); Potassium 4.1 mmol/L (3.5-5.1); Sodium 137 mmol/L (136-145); Total Bilirubin 0.2 mg/dL (0.15-1.2); Total Protein 6.9 g/dL (6.6-8.7)
[2021-10-16 18:32] LABS: Troponin(5th) Baseline 25 ng/L (0-10)
[2021-10-16 18:37] LABS: D Dimer 2.04 ug/mIFEU (0-0.59)
[2021-10-16] MEDS: sodium chloride 0.9% 1,000 ML 999 ML IV (18:52)
[2021-10-16 18:54] LABS: Ammonia 14 umol/L (11-51); Thyroid Stimulating Hormone 0.36 uIU/mL (0.27-4.20)
--- NOTE | 2021-10-16 18:58 | CTR_ITS ---
PROCEDURE INFORMATION: Exam: CTA Chest With Contrast Exam date and time: 10/16/2021 7:46 PM Age: 75 years old Clinical indication: Dyspnea and other: AMS, dizziness; Additional info: Hypoxemia, AMS, elevated dimer TECHNIQUE: Imaging protocol: Computed tomographic angiography of the chest with contrast. 3D rendering (Not supervised by radiologist): MIP and/or 3D reconstructed images were created by the technologist. Radiation optimization: All CT scans at this facility use at least one of these dose optimization techniques: automated exposure control; mA and/or kV adjustment per patient size (includes targeted exams where dose is matched to clinical indication); or iterative reconstruction. Contrast material: VISIPAQUE 320; Contrast volume: 55 ml; Contrast route: INTRAVENOUS (IV); COMPARISON: CT chest abd pel w con* 04/07/2021 11:24 PM RADIATION DOSE METRICS: Total DLP (mGy-cm): 613.91 FINDINGS: Pulmonary arteries: Normal. No pulmonary emboli. Aorta: Unremarkable. No aortic aneurysm. No aortic dissection. Thyroid: Thyroid gland is diffusely heterogeneous and contains calcifications. Lungs: Unremarkable. No consolidation. No masses. Pleural spaces: Unremarkable. No pneumothorax. No pleural effusion. Heart: Cardiomegaly. Multivessel atherosclerotic disease which involves the coronary arteries. Lymph nodes: Unremarkable. No enlarged lymph nodes. Gallbladder and bile ducts: There is sludge and/or small stones in the gallbladder. Spleen: The spleen is enlarged measuring 14.4 cm. Bones/joints: There are degenerative changes in the visualized spine. Lower thoracic/upper lumbar dextroscoliosis. Motion artifact does moderately limit the sensitivity of this examination. Evaluation of the ribs is suboptimal and fractures cannot be excluded. Soft tissues: Unremarkable. CT/CT angio chest PE protcl [id number] IMPRESSION: 1. Cardiomegaly. 2. Multivessel atherosclerotic disease which involves the coronary arteries. 3. Mild splenomegaly. 4. There are are small stones and/or sludge in the gallbladder.
[2021-10-16 18:59] LABS: Acetaminophen < 5.0 ug/mL (10-30); Salicylate < 0.3 mg/dL (3-10)
--- NOTE | 2021-10-16 19:17 | ECG_ITS ---
[facility] Test Date: 2021-10-16 Pat Name: Katy Noble Department: Room: Gender: Female Therapist Respiratory: : 1945 Requested By: Hazel Gustafson Order Number: [id number] Reading MD: Briana Westfall M.D. Measurements Intervals [place] Rate: 74 P: 44 SC: 162 QRS: -11 QRSD: 102 T: 63 QT: 388 QTc: 432 Interpretive Statements SINUS RHYTHM VOLTAGE CRITERIA FOR LVH [MEETS CRITERIA IN ONE OF: R(aVL), S(V1), R(V5), R(V5/V6)+S(V1)] Compared to ECG 10/16/2021 17:52:08 T-wave abnormality no longer present Electronically Signed On 10-16-2021 22:21:16 CDT by Briana Westfall M.D. [id number]
[2021-10-16] MEDS: iodixanol 320 mg/mL 100mL Btl IV (19:53)
[2021-10-16] MEDS: ondansetron 2 mg/ML SDV 2 mL 4 MG IVP (19:59)
[2021-10-16 20:04] LABS: Troponin 5 2HR 25.01 ng/L (0-10)
[2021-10-16 20:06] LABS: Troponin 5 2HR Delta 0.01 ABS# (0-10)
--- NOTE | 2021-10-16 20:27 | PC.PHAR ---
pt is unable to verify medications - verified by ext med history.
[2021-10-16 20:30] VITALS: BP 164/59; PULSE 79; RESP 16; O2SAT 99
[2021-10-16 21:10] LABS: Free T4 Free Thyroxine 1.04 ng/dL (0.82-1.77)
[2021-10-16 22:07] VITALS: BP 147/42; PULSE 85; RESP 16; O2SAT 97
[2021-10-17 01:13] VITALS: BP 122/54; PULSE 63; RESP 16; O2SAT 94
== END 2021-10-17 01:17 | disposition home or self-care (01) ==
PROVIDERS: Emergency Provider Emergency Medicine; PCP Family Medicine
DX: R41.82 Altered mental status, unspecified (principal); E11.621 Type 2 diabetes mellitus with foot ulcer; L97.509 Non-pressure chronic ulcer of other part of unspecified foot with unspecified severity; R94.4 Abnormal results of kidney function studies; A49.02 Methicillin resistant Staphylococcus aureus infection, unspecified site; E11.42 Type 2 diabetes mellitus with diabetic polyneuropathy; I10 Essential (primary) hypertension; Z79.4 Long term (current) use of insulin; Z79.82 Long term (current) use of aspirin; Z86.73 Personal history of transient ischemic attack (TIA), and cerebral infarction without residual deficits
CPT/HCPCS: 36600; 70450; 71045; 71275; 80051; 80053; 80307; 81001; 82140; 82330; 82805; 83690; 84439; 84443; 84484; 85025; 85378; 93005; 96361; 96374; 99285; J2405; J7030; Q9967

== ENCOUNTER → 2021-10-18 10:07 | Outpatient (BNVA) | payer MEDICARE, SELFPAY | PROVIDERS: PCP Family Medicine; Visit Provider Nurse Practitioner Family | DX: E11.621 Type 2 diabetes mellitus with foot ulcer (principal); L97.413 Non-pressure chronic ulcer of right heel and midfoot with necrosis of muscle; I96 Gangrene, not elsewhere classified | CPT/HCPCS: 11042 ==

== ENCOUNTER 2021-10-21 12:37 | Outpatient (CLI) | payer MEDICARE, SELFPAY ==
[2021-10-21 12:51] LABS: Basophils # 0.1 10^3/uL (0.0-0.1); Basophils % 0.6 %; Eosinophils # 0.3 10^3/uL (0.0-0.8); Hematocrit 37.9 % (37.0-47.0); Hemoglobin 11.5 g/dL (11.5-15.3); Lymphocytes # 1.2 10^3/uL (0.8-4.8); Lymphocytes % 13.2 %; Mean Corpuscular HGB Conc 30.3 g/dL (30.0-36.0); Mean Corpuscular Hemoglobin 27.7 pg (28.0-34.0); Mean Corpuscular Volume 91.3 fl (81-99); Mean Platelet Volume 10.8 fL (7.4-10.4); Monocytes # 0.6 10^3/uL (0.2-0.9); Monocytes % 6.5 %; Neutrophils # 6.73 10^3/uL (1.8-7.7); Neutrophils % 75.6 %; Nucleated Red Blood Cells % 0 %; Platelet Count 403 10^3/cmm (130-400); Red Blood Count 4.15 10^6/uL (4.1-5.3); White Blood Count 8.9 10^3/uL (4.0-10.0)
[2021-10-21 13:14] LABS: Alanine Aminotransferase 10 U/L (0-33); Albumin Level 3.2 g/dL (3.5-5.2); Alkaline Phosphatase 135 IU/L (35-105); Aspartate Amino Transferase 15 U/L (0-32); Blood Urea Nitrogen 39 mg/dL (8-23); Calcium 8.5 mg/dL (8.5-10.5); Carbon Dioxide 23 mmol/L (22-29); Chloride 98 mmol/L (98-107); Globulin 3.5 g/dL (1.3-4.6); Glucose 314 mg/dL (65-115); Osmolality Calculated 299 mOsm/kg (285-295); Sodium 134 mmol/L (136-145); Total Bilirubin 0.2 mg/dL (0.15-1.2); Total Protein 6.7 g/dL (6.6-8.7); Vancomycin Trough 18.1 ug/mL (10-15)
[2021-10-21 13:35] LABS: Slide Review Slide Review Perform
[2021-10-21 13:37] LABS: Anion Gap 16.7 (5-19); Potassium 3.7 mmol/L (3.5-5.1)
== END 2021-10-21 12:38 | disposition home or self-care (01) ==
LOC: LAB 12:39
PROVIDERS: PCP Family Medicine; Visit Provider Family Medicine
DX: E11.621 Type 2 diabetes mellitus with foot ulcer (principal); L97.414 Non-pressure chronic ulcer of right heel and midfoot with necrosis of bone; M14.671 Charcot's joint, right ankle and foot; M86.9 Osteomyelitis, unspecified; Z48.89 Encounter for other specified surgical aftercare
CPT/HCPCS: 73630; 80053; 80202; 85025; 99213; 99214

== ENCOUNTER → 2021-10-24 09:02 | Outpatient (BNVA) | payer MEDICARE, SELFPAY | PROVIDERS: PCP Family Medicine; Visit Provider Nurse Practitioner Family | DX: E11.621 Type 2 diabetes mellitus with foot ulcer (principal); L97.413 Non-pressure chronic ulcer of right heel and midfoot with necrosis of muscle; I96 Gangrene, not elsewhere classified | CPT/HCPCS: 11042 ==

== ENCOUNTER 2021-10-28 15:56 | Outpatient (CLI) | payer MEDICARE, SELFPAY ==
[2021-10-28 19:01] LABS: Basophils # 0.1 10^3/uL (0.0-0.1); Basophils % 0.5 %; Eosinophils # 0.3 10^3/uL (0.0-0.8); Eosinophils % 3.1 %; Hematocrit 27.3 % (37.0-47.0); Lymphocytes # 1.8 10^3/uL (0.8-4.8); Lymphocytes % 19.2 %; Mean Corpuscular HGB Conc 29.3 g/dL (30.0-36.0); Mean Corpuscular Hemoglobin 26.8 pg (28.0-34.0); Mean Corpuscular Volume 91.3 fl (81-99); Mean Platelet Volume 10.3 fL (7.4-10.4); Monocytes # 0.7 10^3/uL (0.2-0.9); Monocytes % 7.2 %; Neutrophils # 6.35 10^3/uL (1.8-7.7); Nucleated Red Blood Cells % 0 %; Platelet Count 683 10^3/cmm (130-400); Red Blood Count 2.99 10^6/uL (4.1-5.3); Red Cell Distribution Width 20.1 % (12.1-15.1); White Blood Count 9.2 10^3/uL (4.0-10.0)
[2021-10-28 19:04] LABS: Alanine Aminotransferase 9 U/L (0-33); Albumin Level 3.2 g/dL (3.5-5.2); Alkaline Phosphatase 129 IU/L (35-105); Aspartate Amino Transferase 14 U/L (0-32); Blood Urea Nitrogen 31 mg/dL (8-23); Calcium 9.1 mg/dL (8.5-10.5); Carbon Dioxide 26 mmol/L (22-29); Chloride 96 mmol/L (98-107); Globulin 3.7 g/dL (1.3-4.6); Glucose 251 mg/dL (65-115); Osmolality Calculated 295 mOsm/kg (285-295); Sodium 135 mmol/L (136-145); Total Bilirubin 0.2 mg/dL (0.15-1.2); Total Protein 6.9 g/dL (6.6-8.7); Vancomycin Trough 17.5 ug/mL (10-15)
[2021-10-28 19:05] LABS: Anion Gap 16.9 (5-19); Potassium 3.9 mmol/L (3.5-5.1)
== END 2021-10-28 15:57 | disposition home or self-care (01) ==
PROVIDERS: PCP Family Medicine; Visit Provider Family Medicine
DX: A49.02 Methicillin resistant Staphylococcus aureus infection, unspecified site (principal)
CPT/HCPCS: 80053; 80202; 85025

== ENCOUNTER → 2021-10-29 15:29 | Outpatient (BNVA) | payer MEDICARE, SELFPAY | PROVIDERS: PCP Family Medicine; Visit Provider Nurse Practitioner Family | DX: E11.621 Type 2 diabetes mellitus with foot ulcer (principal); L97.413 Non-pressure chronic ulcer of right heel and midfoot with necrosis of muscle; M86.171 Other acute osteomyelitis, right ankle and foot; I96 Gangrene, not elsewhere classified; Z09 Encounter for follow-up examination after completed treatment for conditions other than malignant neoplasm | CPT/HCPCS: 99212 ==

== ENCOUNTER 2021-10-30 10:59 | Outpatient (CLI) | payer MEDICARE, SELFPAY ==
[2021-10-30 12:38] LABS: C Reactive Protein 46.2 mg/L (0.0-4.9)
[2021-11-01 13:35] LABS: Erythrocyte Sedimentation Rate 25 mm/hr (0-15)
== END 2021-10-30 11:00 | disposition home or self-care (01) ==
LOC: LAB 11:08
PROVIDERS: PCP Family Medicine; Visit Provider Podiatrist Foot & Ankle Surgery
DX: E11.621 Type 2 diabetes mellitus with foot ulcer (principal)
CPT/HCPCS: 85651; 86140

== ENCOUNTER → 2021-10-31 15:47 | Outpatient (BNVA) | payer MEDICARE, SELFPAY | PROVIDERS: PCP Family Medicine; Visit Provider Podiatrist Foot & Ankle Surgery | DX: Z98.890 Other specified postprocedural states (principal); L97.414 Non-pressure chronic ulcer of right heel and midfoot with necrosis of bone; M14.671 Charcot's joint, right ankle and foot; Z91.19 Patient's noncompliance with other medical treatment and regimen | CPT/HCPCS: 73630; 99024; 99214 ==

== ENCOUNTER → 2021-11-28 15:45 | Outpatient (BNVA) | payer MEDICARE, SELFPAY | PROVIDERS: PCP Family Medicine; Visit Provider Podiatrist Foot & Ankle Surgery | DX: E11.621 Type 2 diabetes mellitus with foot ulcer (principal); L97.509 Non-pressure chronic ulcer of other part of unspecified foot with unspecified severity; L97.414 Non-pressure chronic ulcer of right heel and midfoot with necrosis of bone; M14.671 Charcot's joint, right ankle and foot; Z98.890 Other specified postprocedural states; E11.42 Type 2 diabetes mellitus with diabetic polyneuropathy | CPT/HCPCS: 73630; 99024 ==

== ENCOUNTER → 2022-01-29 15:56 | Outpatient (BNVA) | payer MEDICARE, SELFPAY | PROVIDERS: PCP Family Medicine; Visit Provider Podiatrist Foot & Ankle Surgery | DX: E11.621 Type 2 diabetes mellitus with foot ulcer (principal); L97.414 Non-pressure chronic ulcer of right heel and midfoot with necrosis of bone; E11.42 Type 2 diabetes mellitus with diabetic polyneuropathy; Z79.4 Long term (current) use of insulin; M14.671 Charcot's joint, right ankle and foot | CPT/HCPCS: 73630; 99213; 99214 ==

== ENCOUNTER 2023-09-21 07:46 | Inpatient (IN) | payer MEDICARE, SELFPAY ==
[2023-09-21] VITALS (13 sets, daily range): BP systolic 135–235; BP diastolic 64–119; PULSE 53–83; RESP 16–20; TEMP 36.4–37.1; O2SAT 86–97; BMI 28.0
--- NOTE | 2023-09-21 07:53 | ECG_ITS ---
[facility] Test Date: 2023-09-21 Pat Name: Katy Noble Department: Room: Gender: Female Learning Strategist: : 1945 Requested By: Jake Hadley Order Number: [id number] Jackson MD: Shakir Vargas M.D. Measurements Intervals [place] Rate: 75 P: 108 MO: 179 QRS: -28 QRSD: 133 T: 132 QT: 411 QTc: 460 Interpretive Statements SINUS RHYTHM WITH SINUS ARRHYTHMIA POSSIBLE LEFT ATRIAL ENLARGEMENT [-0.1mV P-WAVE IN V1/V2] INTRAVENTRICULAR CONDUCTION DELAY [130+ ms QRS DURATION] LEFT VENTRICULAR HYPERTROPHY AND ST-T CHANGE [VOLTAGE CRITERIA PLUS ST/T ABNORMALITY] ANTEROLATERAL MYOCARDIAL INFARCTION AGE INDETERMINATE Compared to ECG 10/16/2021 19:01:32 Intraventricular conduction delay now present ST (T wave) deviation now present Myocardial infarct finding now present Electronically Signed On 09-21-2023 12:51:48 CDT by Shakir Vargas M.D. [id number]
--- NOTE | 2023-09-21 08:00 | CTR_ITS ---
PROCEDURE INFORMATION: Exam: CT Cervical Spine Without Contrast Exam date and time: 09/21/2023 9:03 AM Age: 77 years old Clinical indication: Injury or trauma; Fall; Blunt trauma TECHNIQUE: Imaging protocol: Computed tomography of the cervical spine without contrast. Radiation optimization: All CT scans at this facility use at least one of these dose optimization techniques: automated exposure control; mA and/or kV adjustment per patient size (includes targeted exams where dose is matched to clinical indication); or iterative reconstruction. COMPARISON: CT angio headneck* [id number] 09/20/2021 2:05 PM RADIATION DOSE METRICS: Total DLP (mGy-cm): 425 FINDINGS: Bones: No acute fracture. Overall straightening of the natural cervical lordosis without subluxation or dislocation. Mild multilevel degenerative change along the spine. No severe spinal canal stenosis. No significant neural foraminal narrowing. Lungs: Lung apices are unremarkable. Thyroid: Multinodular thyroid with hypodense right thyroid nodule measuring up to 1.7 cm and partially visualized hypodense left lower thyroid nodule measuring up to 2.5 cm. Vasculature: Moderate systemic atherosclerotic calcification. Soft tissues: Unremarkable. CT/CT cervical spin wo con* [id number] IMPRESSION: 1. No acute fracture or traumatic listhesis. 2. Overall straightening of the natural cervical lordosis may be positional, possibly related to muscle spasm. 3. Multinodular thyroid. Recommend nonemergent thyroid ultrasound. COMMENTS: Consistent with the [employer]'s Incidental Findings Committee white paper (J Am Estrella Radiol 2015): In patients aged 35 years and older with an incidental thyroid nodule equal to or greater than 1.[address], MRI or extrathyroidal US, further evaluation with dedicated thyroid US is recommended for patients with normal life expectancy and without comorbidities. For smaller nodules without suspicious features, no further evaluation or follow up is recommended.
--- NOTE | 2023-09-21 08:00 | CTR_ITS ---
PROCEDURE INFORMATION: Exam: CT Head Without Contrast Exam date and time: 09/21/2023 9:03 AM Age: 77 years old Clinical indication: Injury or trauma; Fall; Blunt trauma (contusions or hematomas); Without loss of consciousness TECHNIQUE: Imaging protocol: Computed tomography of the head without contrast. Radiation optimization: All CT scans at this facility use at least one of these dose optimization techniques: automated exposure control; mA and/or kV adjustment per patient size (includes targeted exams where dose is matched to clinical indication); or iterative reconstruction. COMPARISON: CT head wo con* [id number] 10/16/2021 6:52 PM RADIATION DOSE METRICS: Total DLP (mGy-cm): 1163.41 FINDINGS: Brain: Diffuse cerebral atrophy, consistent with patient's age. No hemorrhage. Preserved chacon-white matter differentiation. Mild cerebral white matter hypodensities compatible with chronic microvascular ischemic change. No mass effect. Cerebral ventricles: Ventricles are in proportion to the degree of atrophy. Paranasal sinuses: Visualized sinuses are unremarkable. No fluid levels. Mastoid air cells: Visualized mastoid air cells are well aerated. Bones: Unremarkable. No acute fracture. Soft tissues: Unremarkable. Vasculature: Bilateral ICA calcifications. CT/CT head wo con* [id number] IMPRESSION: No acute intracranial findings.
--- NOTE | 2023-09-21 08:02 | XR_ITS ---
WS: [id number] PORTABLE CHEST HISTORY: dyspnea/cough COMPARISON: 10/16/2021 Lung volumes are decreased. Poor inspiratory effort. No is areas of consolidation. Normal vasculature. No pleural effusion or pneumothorax. Cardiac size: Mildly enlarged cardiac silhouette. Mediastinum/Aorta: Moderate atherosclerosis aorta. No osseous abnormality seen. XR/XR chest 1V portable [id number] IMPRESSION: 1. Poor inspiration. Low lung volumes. 2. No pneumonia. 3. Mild cardiomegaly. Atherosclerotic aorta.
--- NOTE | 2023-09-21 08:04 | W.ED.DIZZY ---
HPI - Dizziness General: Chief Complaint: Dizziness Stated Complaint: fall, dizziness Time Seen by Provider: 09/21/23 07:50 Source: patient Mode of arrival: EMS History of Present Illness: HPI Narrative: 77-year-old female presents emergency room with complaints of dizziness and a fall. She fell last night she is slipped lost her balance while getting off of the toilet fell into the bathtub and hit the right side of her neck on the water speck it as she fell. She is also had some right flank and low back pain for the last several days. She denies loss conscious no chest pain or shortness of breath at this time. Also complaining of some left upper quadrant left mid side abdominal pain MD elicited complaint: dizziness, lightheadedness and other (Right flank pain) Exacerbating factors: nothing Relieving factors: nothing Associated symptoms: Reports malaise and nasal congestion; Denies change in hearing, chest pain, chills, cough, diaphoresis, ear discharge, ear pressure, fevers/chills, headache(s), nausea, palpitations, rash, short of breath, syncope, tinnitus, vomiting or weakness Review of Systems Const: Reports: malaise; Denies: chills or diaphoresis ENMT: Reports: nasal congestion; Denies: ear discharge, change in hearing or tinnitus Card: Denies: chest pain, palpitations or syncope Resp: Denies: dyspnea GI: Denies: nausea or vomiting : Denies: dysuria, urinary frequency or urinary urgency Musc: Denies: neck pain or back pain Skin/Breast: Denies: rash Neuro: Denies: headache(s) PFSH ED PFSH: Medical History (Updated 09/21/23 @ 18:13 by Jake Guerrero DO) Depression GERD (gastroesophageal reflux disease) Thrombocytosis Diabetic peripheral neuropathy associated with type 2 diabetes mellitus Carotid artery stenosis Carotid artery disease Acute CVA (cerebrovascular accident) UTI (urinary tract infection) Aphasia Acute kidney injury superimposed on chronic kidney disease Sepsis Aspiration pneumonitis Chronic kidney disease PUD (peptic ulcer disease) Hypertension Stroke Charcot foot due to diabetes mellitus Coronary artery disease Osteomyelitis Diabetes Diabetic foot ulcer History of hyperbaric oxygen therapy Acute cystitis Cerebrovascular accident Patient with ongoing aphasia Surgical History S/P PICC central line placement Patient had tunneled left subclavian central line for IV antibiotics for osteomyelitis which was removed by Dr. Zelaya 2017 S/P carotid endarterectomy Family History Other Family history non-contributory Social History Smoking and tobacco/nicotine status: never used tobacco/nicotine Alcohol intake: never Substance/Drug Use: never Household members: family Housing: House Physical Exam Const: GENERAL APPEARANCE: cooperative ORIENTATION/CONSCIOUSNESS: Yes awake, Yes oriented to person, Yes oriented to place and Yes oriented to time HENMT: COMMON NORMALS: normocephalic, atraumatic and hearing grossly normal bilaterally HEAD & SCALP: normocephalic and atraumatic Neck/C-Spine: OTHER: Bruising on the right side of the neck and lumbar thoracic region of the back. Resp: COMMON NORMALS: normal respiratory effort, No retractions, No use of accessory muscles and clear to auscultation bilaterally AUSCULTATION: clear to auscultation bilaterally Cardio: COMMON NORMALS: regular rate, regular rhythm and No murmurs present (Cardio) RATE: regular rate RHYTHM: regular rhythm GI: COMMON NORMALS: Soft to palpation and No hepatosplenomegaly present AUSCULTATION: Yes normoactive bowel sounds PALPATION: Yes Soft to palpation, No Tenderness to palpation present (GI), No Guarding due to palpation present (GI) and Yes No hepatosplenomegaly present Extremity: COMMON NORMALS: normal to inspection, capillary refill normal, no clubbing, cyanosis or edema, no calf tenderness and no pedal edema Neuro: SENSORIUM/ORIENTATION: Yes oriented to person, Yes oriented to place and Yes oriented to time Skin: COMMON NORMALS: no rashes or lesions noted GENERAL SKIN EXAM: no rashes or lesions noted Course Vital Signs: Vital signs: Vital Signs Temperature 98 F 09/21/23 16:19 Pulse Rate 78 09/21/23 16:19 Respiratory Rate 19 H 09/21/23 16:19 Blood Pressure 174/77 09/21/23 16:19 Pulse Oximetry 97 09/21/23 16:19 Oxygen Delivery Me thod Nasal Cannula 09/21/23 16:19 Oxygen Flow Rate 2 09/21/23 14:06 MDM - Dizziness Medical Decision Making Patient is elevated white count white count 25,000 with a pretty significant left shift lactate was normal she does have a mild acute kidney injury with a normal potassium. Cultures done started on antibiotics does look like she has a mild cystitis on the CT there is also some diverticulitis. Discussed with hospitalist orders written Medical Records I reviewed the patient's medical records. Lab Data I reviewed the patient's lab results. 09/21/23 06:58 09/21/23 06:58 Radiology Impressions Cervical Spine CT 09/21/23 08:00 IMPRESSION: 1. No acute fracture or traumatic listhesis. 2. Overall straightening of the natural cervical lordosis may be positional, possibly related to muscle spasm. 3. Multinodular thyroid. Recommend nonemergent thyroid ultrasound. COMMENTS: Consistent with the [employer]'s Incidental Findings Committee white paper (J Am Estrella Radiol 2015): In patients aged 35 years and older with an incidental thyroid nodule equal to or greater than 1.[address], MRI or extrathyroidal US, further evaluation with dedicated thyroid US is recommended for patients with normal life expectancy and without comorbidities. For smaller nodules without suspicious features, no further evaluation or follow up is recommended. Head CT 09/21/23 08:00 IMPRESSION: No acute intracranial findings. Chest X-Ray 09/21/23 08:02 IMPRESSION: 1. Poor inspiration. Low lung volumes. 2. No pneumonia. 3. Mild cardiomegaly. Atherosclerotic aorta. Foot X-Ray 09/21/23 08:05 IMPRESSION: Severe chronic Charcot neuropathy. Similar to 01/29/2022. No acute fractures. Mild soft tissue edema. Lumbar Spine X-Ray 09/21/23 08:13 IMPRESSION: 1. No distinct acute osseous fractures. 2. Chronic and postsurgical changes as above. Abdomen/Pelvis CT 09/21/23 08:49 IMPRESSION: 1. Moderate colonic diverticulosis, primarily involving the sigmoid and descending colons. Mild stranding and edema about much of the inferior descending colon and about the sigmoid colon raises concern for potential mild non complicated acute diverticulitis. 2. Questionably cirrhotic appearance of the liver. Mild splenomegaly. 3. Cholelithiasis without CT evidence of acute cholecystitis. 4. Indeterminate heterogeneous lesions in the bilateral kidneys, poorly visualized. Recommend further nonemergent evaluation starting with renal ultrasound. COMMENTS: Consistent with the [employer]'s Incidental Findings Committee white paper (J Am Estrella Radiol 2018): Any incidental renal lesion less than 1 cm or classified as too small to characterize, or any incidental cystic renal lesion characterized as simple-appearing, is likely benign. No follow-up imaging is recommended for these lesions per consensus recommendations based on imaging criteria. Lumbar Spine CT 09/21/23 12:16 IMPRESSION: 1. No paraspinal hematoma. 2. There is a very tiny fluid collection which may be pleural fluid along the RIGHT diaphragmatic pleural pleura at the T12 level. This is separate from the paraspinal fat. 3. Multilevel central and foraminal stenosis throughout the lumbar spine with advanced scoliosis. Stenosis due to combination of scoliosis, osteophytes and facet disease. 4. L2-3: Moderate to severe LEFT subarticular recess and mild LEFT foraminal stenosis. 5. L3-4: Moderate to severe central with bilateral subarticular recess stenosis. 6. L4-5: Severe RIGHT foraminal stenosis. Laboratory Results WBC 25.99 10^3/uL (3.29-11.43) H 09/21/23 06:58 RBC 6.33 10^6/uL (3.85-5.65) H 09/21/23 06:58 Hgb 12.20 g/dL (11.27-16.99) 09/21/23 06:58 Hct 42.7 % (36-47) 09/21/23 06:58 MCV 67.5 fl (85-98) L 09/21/23 06:58 MCH 19.3 pg (27-33) L 09/21/23 06:58 MCHC 28.6 g/dL (30-55) L 09/21/23 06:58 RDW 23.9 % (12.1-15.1) H 09/21/23 06:58 Plt Count 960 10^3/cmm (157-399) H 09/21/23 06:58 MPV 9.4 fL (7.4-10.4) 09/21/23 06:58 Neut % (Auto) 81.0 % 09/21/23 06:58 Lymph % (Auto) 4.8 % 09/21/23 06:58 [place] % (Auto) 5.7 % 09/21/23 06:58 Eos % (Auto) 2.1 % 09/21/23 06:58 Baso % (Auto) 0.7 % 09/21/23 06:58 Neut # (Auto) 21.05 10^3/uL (1.8-7.7) H 09/21/23 06:58 Lymph # (Auto) 1.3 10^3/uL (0.8-4.8) 09/21/23 06:58 [place] # (Auto) 1.5 10^3/uL (0.2-0.9) H 09/21/23 06:58 Eos # (Auto) 0.5 10^3/uL (0.0-0.8) 09/21/23 06:58 Baso # (Auto) 0.2 10^3/uL (0.0-0.1) H 09/21/23 06:58 Nucleated RBC % (auto) 0 % 09/21/23 06:58 Nucleated RBCs # 0.0 /100WBC 09/21/23 06:58 Sodium 133 mmol/L (136-145) L 09/21/23 06:58 Potassium 4.6 mmol/L (3.5-5.1) 09/21/23 06:58 Chloride 96 mmol/L (98-107) L 09/21/23 06:58 Carbon Dioxide 24 mmol/L (22-29) 09/21/23 06:58 Anion Gap 17.6 (5-19) 09/21/23 06:58 BUN 34 mg/dL (8-23) H 09/21/23 06:58 Creatinine 1.2 mg/dL (0.5-0.9) H 09/21/23 06:58 GFR Calculation Not Reportable 09/21/23 06:58 Glucose 199 mg/dL (65-115) H 09/21/23 06:58 Calculated Osmolality 289 mOsm/kg (285-295) 09/21/23 06:58 Lactic Acid 0.6 mmol/L (0.5-2.2) 09/21/23 08:35 Calcium 9.1 mg/dL (8.5-10.5) 09/21/23 06:58 Magnesium 2.0 mg/dL (1.7-2.3) 09/21/23 06:58 Total Bilirubin 0.3 mg/dL (0.15-1.2) 09/21/23 06:58 AST 17 U/L (0-32) 09/21/23 06:58 ALT < 5 U/L (0-33) 09/21/23 06:58 Alkaline Phosphatase 159 U/L (35-105) H 09/21/23 06:58 Troponin T Baseline 17 ng/L (0-10) H 09/21/23 12:38 Total Protein 7.7 g/dL (6.6-8.7) 09/21/23 06:58 Albumin 4.1 g/dL (3.5-5.2) 09/21/23 06:58 Globulin 3.6 g/dL (1.3-4.6) 09/21/23 06:58 TSH 1.37 uIU/mL (0.27-4.20) 09/21/23 06:58 Urine Color Yellow (Yellow) 09/21/23 10:17 Urine Appearance Slightly cloudy (CLEAR) A 09/21/23 10:17 Urine pH 7 (5-7) 09/21/23 10:17 Ur Specific [place] 1.010 (1.005-1.030) 09/21/23 10:17 Urine Protein 3+ (Negative) H 09/21/23 10:17 Urine Glucose (UA) Norm (Normal) 09/21/23 10:17 Urine Ketones Negative (Negative) 09/21/23 10:17 Urine Blood Neg (Negative) 09/21/23 10:17 Urine Nitrate Negative (Negative) 09/21/23 10:17 Urine Bilirubin Neg (Negative) 09/21/23 10:17 Urine Urobilinogen Neg mg/dL (Negative) 09/21/23 10:17 Ur Leukocyte Esterase Negative (Negative) 09/21/23 10:17 Urine RBC 0-4 /hpf (0-2) H 09/21/23 10:17 Urine WBC 5-10 /hpf (0-5) H 09/21/23 10:17 Ur Squamous Epith Cells 0-4 /hpf (0-5) H 09/21/23 10:17 Amorphous Sediment Not Reportable 09/21/23 10:17 Urine Bacteria 3+ /hpf (NONE) H 09/21/23 10:17 All radiology interpretation(s) finalized by discharge Discharge Plan Discharge Patient Disposition: Admitted As Inpatient Admit Provider: Eliseo Aguirre Clinical Impression: Leukocytosis, Hypertension, UTI (urinary tract infection), Diverticulitis Condition: Stable Coding Level of Care Code ED [employer] Project Manager for Cheri Mace
--- NOTE | 2023-09-21 08:05 | XR_ITS ---
WS: [id number] RIGHT FOOT: 3 VIEW(S) TECHNIQUE: AP, oblique and lateral. HISTORY: pain COMPARISON: 01/29/2022 There is marked deformity of the midfoot. Loss of the normal arch with sclerosis and overlapping bone s. Similar findings as compared to the prior study consistent with a Charcot neuropathy. There is melvin cindy formation and shortening the metatarsals. Probably from prior fractures. Osteopenia. No acute fracture is identified. There is mild soft tissue edema surrounding the foot. Vascular calcifications. XR/XR foot RT min 3V* [id number] IMPRESSION: Severe chronic Charcot neuropathy. Similar to 01/29/2022. No acute fractures. Mild soft tissue edema.
--- NOTE | 2023-09-21 08:13 | XRR_ITS ---
PROCEDURE INFORMATION: Exam: XR Lumbosacral Spine Exam date and time: 09/21/2023 8:29 AM Age: 77 years old Clinical indication: Injury or trauma; Fall; Blunt trauma (contusions or hematomas) TECHNIQUE: Imaging protocol: Radiologic exam of the lumbosacral spine. Views: 2 or 3 views. COMPARISON: CT chest abd pel w con* 04/07/2021 11:24 PM FINDINGS: Bones/joints: Moderate lumbar dextroscoliosis. Stable positioning of posterior screws involving L4 and L5. Normal lumbar lordosis. No spondylolisthesis. Multilevel thoracolumbar spondylosis. Soft tissues: Visualized superficial soft tissues are within normal limits. Vasculature: Prominent calcific disease of the abdominal aorta. XR/XR lumbar spine 2-3V* [id number] IMPRESSION: 1. No distinct acute osseous fractures. 2. Chronic and postsurgical changes as above.
[2023-09-21] MEDS: hyDRALAzine 10 mg Tablet PO (08:22)
[2023-09-21] MEDS: metoprolol tartrate 50 mg Tablet PO (08:22)
[2023-09-21] MEDS: metoprolol tartrate 1 mg/1 mL SDV 5 mL 2.5 MG IVP (08:24)
[2023-09-21 08:26] LABS: Basophils # 0.2 10^3/uL (0.0-0.1); Basophils % 0.7 %; Eosinophils # 0.5 10^3/uL (0.0-0.8); Eosinophils % 2.1 %; Hematocrit 42.7 % (36-47); Lymphocytes # 1.3 10^3/uL (0.8-4.8); Lymphocytes % 4.8 %; Mean Corpuscular HGB Conc 28.6 g/dL (30-55); Mean Corpuscular Hemoglobin 19.3 pg (27-33); Mean Corpuscular Volume 67.5 fl (85-98); Mean Platelet Volume 9.4 fL (7.4-10.4); Monocytes # 1.5 10^3/uL (0.2-0.9); Monocytes % 5.7 %; Neutrophils # 21.05 10^3/uL (1.8-7.7); Nucleated Red Blood Cells % 0 %; Platelet Count 960 10^3/cmm (157-399); Red Blood Count 6.33 10^6/uL (3.85-5.65); Red Cell Distribution Width 23.9 % (12.1-15.1); White Blood Count 25.99 10^3/uL (3.29-11.43)
--- NOTE | 2023-09-21 08:49 | CTR_ITS ---
PROCEDURE INFORMATION: Exam: CT Abdomen And Pelvis Without Contrast Exam date and time: 09/21/2023 9:08 AM Age: 77 years old Clinical indication: Pain and injury or trauma; Fall; Blunt; Generalized; Other: Flank pain; Prior surgery; Surgery date: 6+ months; Surgery type: Lumbar TECHNIQUE: Imaging protocol: Computed tomography of the abdomen and pelvis without contrast. Radiation optimization: All CT scans at this facility use at least one of these dose optimization techniques: automated exposure control; mA and/or kV adjustment per patient size (includes targeted exams where dose is matched to clinical indication); or iterative reconstruction. COMPARISON: CT chest abd pel w con* 04/07/2021 11:24 PM RADIATION DOSE METRICS: Total DLP (mGy-cm): 945.84 FINDINGS: Lungs: Mild bibasilar atelectasis and/or scarring. Heart: Mitral valvular calcifications. Liver: Questionably cirrhotic appearance of the liver. Gallbladder and bile ducts: Multiple small stones in the dependent gallbladder. No significant biliary ductal dilation. No significant gallbladder wall thickening or pericholecystic fluid. Pancreas: Moderate atrophy of the pancreas. No pancreatic ductal dilation. Spleen: Splenomegaly. Adrenal glands: The adrenal glands are unremarkable. Kidneys and ureters: Multiple bilateral renal cysts, measuring up to 4.7 cm. Mild bilateral cortical renal atrophy. Indeterminate heterogeneous lesions in the bilateral kidneys, poorly visualized. No hydronephrosis or hydroureter. Multiple tiny coarse calcifications in the bilateral kidneys, measuring up to 0.4 cm, may represent vascular calcifications versus tiny nonobstructing renal stones. Stomach and bowel: Nonobstructive bowel-gas pattern. Moderate colonic diverticulosis, primarily involving the sigmoid and descending colons. Mild stranding and edema about much of the inferior descending colon and about the sigmoid colon raises concern for potential mild non complicated acute diverticulitis. Appendix: No evidence of acute appendicitis. Intraperitoneal space: No significant free fluid in the abdomen or pelvis. No extraluminal free air. Vasculature: Moderate calcific disease of the abdominal aorta and its major branches. Prominent calcific disease of the splenic artery. Lymph nodes: No suspicious lymphadenopathy. Urinary bladder: Small amount of anti dependent air in the urinary bladder, presumed secondary to recent catheterization. Reproductive: Uterus is absent. Bones/joints: Moderate lumbar dextroscoliosis. Stable appearance vertebral screws bilaterally at L4 and at L5. Multilevel thoracolumbar spondylosis. No distinct acute osseous fractures. Soft tissues: Visualized superficial soft tissues demonstrate mild diffuse anasarca. Mild fatty atrophy of the paraspinal musculature. CT/CT kidney stone [id number] IMPRESSION: 1. Moderate colonic diverticulosis, primarily involving the sigmoid and descending colons. Mild stranding and edema about much of the inferior descending colon and about the sigmoid colon raises concern for potential mild non complicated acute diverticulitis. 2. Questionably cirrhotic appearance of the liver. Mild splenomegaly. 3. Cholelithiasis without CT evidence of acute cholecystitis. 4. Indeterminate heterogeneous lesions in the bilateral kidneys, poorly visualized. Recommend further nonemergent evaluation starting with renal ultrasound. COMMENTS: Consistent with the [employer]'s Incidental Findings Committee white paper (J Am Estrella Radiol 2018): Any incidental renal lesion less than 1 cm or classified as too small to characterize, or any incidental cystic renal lesion characterized as simple-appearing, is likely benign. No follow-up imaging is recommended for these lesions per consensus recommendations based on imaging criteria.
[2023-09-21 08:57] LABS: Alanine Aminotransferase < 5 U/L (0-33); Albumin Level 4.1 g/dL (3.5-5.2); Alkaline Phosphatase 159 U/L (35-105); Anion Gap 17.6 (5-19); Aspartate Amino Transferase 17 U/L (0-32); Blood Urea Nitrogen 34 mg/dL (8-23); Calcium 9.1 mg/dL (8.5-10.5); Carbon Dioxide 24 mmol/L (22-29); Chloride 96 mmol/L (98-107); Creatinine Clr Calc Pharmacy 50.4852; Globulin 3.6 g/dL (1.3-4.6); Glucose 199 mg/dL (65-115); Osmolality Calculated 289 mOsm/kg (285-295); Potassium 4.6 mmol/L (3.5-5.1); Sodium 133 mmol/L (136-145); Total Bilirubin 0.3 mg/dL (0.15-1.2); Total Protein 7.7 g/dL (6.6-8.7)
[2023-09-21 09:08] LABS: Lactic Sepsis W/Reflex 0.6 mmol/L (0.5-2.2)
[2023-09-21] MEDS: diphenhydrAMINE 50 mg/mL SDV 1mL 25 MG IVP (09:22)
[2023-09-21] MEDS: morphine 4 mg/mL SDV 1 mL IVP (09:23)
[2023-09-21] MEDS: hyDRALAzine 20 mg/mL INJ 1 mL 10 MG IVP (09:41)
[2023-09-21] MEDS: metoclopramide 5 mg/mL SDV 2 mL 10 MG IVP (09:46)
[2023-09-21 10:56] LABS: Bilirubin Urine Neg (Negative); Blood Urine Neg (Negative); Glucose Urine UA Norm (Normal); Ketones Urine Negative (Negative); Leukocyte Esterase Urine Negative (Negative); Nitrate Urine Negative (Negative); Protein Urine 3+ (Negative); Urine Appearance Slightly Cloudy (CLEAR); Urine Color Yellow (Yellow); Urobilinogen Urine Neg (Negative); pH Urine 7 (5-7)
[2023-09-21 10:57] LABS: Add Urine Culture? Yes; Add Urine Microscopic? YES; Bacteria Urine 3+ /hpf; RBC Urine 0-4 /hpf (0-2); Squamous Epithelial Cell Urine 0-4 /hpf (0-5)
--- NOTE | 2023-09-21 11:10 | PC.PHAR ---
PT VERIFIED MEDICATIONS AND THEN POINTED OUT HER MEDICATION BAG. VERIFIED WITH PT LIST.
[2023-09-21] MEDS: ciprofloxacin 400 MG/200 ML PREMIX 200 MG IV (12:10)
--- NOTE | 2023-09-21 12:14 | ECG_ITS ---
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 Measurements Intervals Eleele Rate: 78 P: 68 MS: 195 QRS: -62 QRSD: 134 T: 79 QT: 400 QTc: 458 Interpretive Statements SINUS RHYTHM WITH SINUS ARRHYTHMIA POSSIBLE LEFT ATRIAL ENLARGEMENT [-0.1mV P-WAVE IN V1/V2] LEFT AXIS DEVIATION [QRS AXIS < -30] INTRAVENTRICULAR CONDUCTION DELAY [130+ ms QRS DURATION] POSSIBLE LEFT VENTRICULAR HYPERTROPHY [VOLTAGE CRITERIA PLUS LAE OR QRS WIDENING] POSSIBLE ANTERIOR MYOCARDIAL INFARCTION , OF INDETERMINATE AGE [30 ms Q WAVE IN V3/V4, OR R < 0.2 mV IN V4] Compared to ECG 09/21/2023 07:53:48 Left-axis deviation now present ST (T wave) deviation no longer present Myocardial infarct finding still present Electronically Signed On 09-21-2023 12:51:06 CDT by Shakir Vargas M.D. [id number]
--- NOTE | 2023-09-21 12:16 | CT_ITS ---
WS: [id number] CT LUMBAR SPINE, noncontrast. HISTORY: severe pain, hematoma around T12 level on right TECHNIQUE: Contiguous 2.0 mm axial imaging are performed. Sagittal and coronal reformats are submitte d and reviewed. All CT scans at [facility] use at least one of these dose optimization techni ques: automated exposure control; mA and/or kV adjustment per patient size (includes targeted exams w here dose is matched to clinical indication); or iterative reconstruction. IV contrast: None DLP: 945.84 mGy COMPARISON: None available. S-shaped scoliosis of the lumbar spine. Prior posterior lumbar fusion at L4-5. Hardware is intact. Di sc spaces are desiccated and narrowed. There is a small fluid collection along the posterior medial R IGHT lower lobe which may be pleural fluid. L1-2: Osteophytic ridging and asymmetric disc bulging. LEFT foraminal disc protrusion. L2-3: Osteophytic ridging with asymmetric disc bulging. Moderate to severe LEFT subarticular recess s tenosis and mild LEFT foraminal stenosis. L3-4: Marked annular disc bulging encroaching upon the ventral thecal sac. Ligamentum flavum and face t arthritis. Moderate to severe central with bilateral foraminal and subarticular recess stenosis. L4-5: Diffuse annular disc bulging with osteophytic ridging and facet arthritis. Mild central, bilate ral subarticular recess and severe RIGHT foraminal stenosis. LEFT hemiarthroplasty. L5-S1: Diffuse annular disc bulging with marked facet arthritis. Advanced atherosclerosis aorta and mesenteric arteries. Cholelithiasis. Mild perinephric stranding. CT/CT lumbar spine recon [id number] IMPRESSION: 1. No paraspinal hematoma. 2. There is a very tiny fluid collection which may be pleural fluid along the RIGHT diaphragmatic pleural pleura at the T12 level. This is separate from the paraspinal fat. 3. Multilevel central and foraminal stenosis throughout the lumbar spine with advanced scoliosis. Stenosis due to combination of scoliosis, osteophytes and f acet disease. 4. L2-3: Moderate to severe LEFT subarticular recess and mild LEFT foraminal s tenosis. 5. L3-4: Moderate to severe central with bilateral subarticular recess stenosi s. 6. L4-5: Severe RIGHT foraminal stenosis.
--- NOTE | 2023-09-21 12:16 | CTR_ITS ---
PROCEDURE INFORMATION: Exam: CT Thoracic Spine Without Contrast Exam date and time: 09/22/2023 1:56 AM Age: 77 years old Clinical indication: Pain in thoracic spine; Additional info: Severe pain TECHNIQUE: Imaging protocol: Computed tomography of the thoracic spine without contrast. Radiation optimization: All CT scans at this facility use at least one of these dose optimization techniques: automated exposure control; mA and/or kV adjustment per patient size (includes targeted exams where dose is matched to clinical indication); or iterative reconstruction. COMPARISON: CT lumbar spine recon [id number] 09/21/2023 9:08 AM RADIATION DOSE METRICS: Total DLP (mGy-cm): 1021.1 FINDINGS: Bones/joints: No acute fracture. Normal alignment. There is [id number] multilevel degenerative disease and spondylosis. There is levo scoliosis measuring 24 degrees. There is mild spinal canal stenosis at T10-T11 secondary to disc osteophyte bulging. Otherwise the spinal canal appears patent. CT/CT thoracic spin wo con* [id number] IMPRESSION: No evidence of acute process. Clinical scenario should determine the need for MRI.
--- NOTE | 2023-09-21 12:58 | P.HP_ITS ---
Providers/Chief Complaint 2 Admitting Physician: Eliseo Aguirre MD Primary Care Provider: Daniel Mae Chief Complaint: fall, dizziness History of Present Illness Katy Noble is a 77 year old female presenting to the emergency department with history of pain in her abdomen. She reports this has been going on since about Thursday, and was mainly on the left side. She fell when getting off the toilet last night, and fell into the bathtub. This was obtained from the ER record as she just received some morphine prior to me visiting with her. She could give me some of her history, but she frequently fell asleep during the interview, and was fidgeting significantly secondary to discomfort. She denied any fevers, nausea, vomiting. She did report she had significant right back pain that seem to go into her right flank. When she initially came in she was worried she might have a kidney stone secondary to the severity of the pain. She reports no blood in her stool or black or tarry stool. She states she takes hydroxyurea, secondary to elevated platelet count and she does not have CML. She is followed by Nikky, presumably a tobacco curer. She reports she has been told she has had diverticulitis in the past. In the emergency department she was diagnosed with probable diverticulitis, hematoma of her back and neck, fall with unknown etiology at this time, a significantly elevated white blood cell count and possible UTI. Further history is somewhat difficult at this time. In the emergency department she received 4 mg of morphine, Reglan, hydralazine, Benadryl IV, Cipro and Flagyl, and Tylenol. She also received some metoprolol. Review of Systems 2 Card: Denies: chest pain Resp: Denies: dyspnea GI: Reports: abdominal pain; Denies: nausea, vomiting, hematochezia or melena Medications/Allergies Home Medications Medication Instructions Recorded Confirmed Last Taken Type acetaminophen 500 mg tablet 500 mg PO Q6H PRN pain 05/31/20 09/21/23 2 Days Ago History ~09/15/21 cyanocobalamin (vitamin B-12) 2,500 mcg sublingual DAILY 05/31/20 09/21/23 09/20/23 History 2,500 mcg sublingual tablet (Vitamin B-12) famotidine 20 mg tablet (Pepcid) 20 mg PO BID 05/31/20 09/21/23 09/20/23 History gabapentin 300 mg capsule 300 mg PO BEDTIME 05/31/20 09/21/23 09/20/23 History insulin degludec 200 unit/mL (3 25 unit SUBCUT QAM 06/05/20 09/21/23 09/20/23 History mL) subcutaneous pen (Tresiba FlexTouch U-200 insulin) hydroxyurea 500 mg capsule 500 mg PO EVERY OTHER DAY 12/12/20 09/21/23 09/20/23 History atorvastatin 20 mg tablet 20 mg PO DAILY 04/07/21 09/21/23 09/20/23 History aspirin 81 mg tablet,delayed 81 mg PO DAILY #90 tabs 04/13/21 09/21/23 09/20/23 Rx release amlodipine 10 mg tablet 10 mg PO DAILY #30 tabs 04/29/21 09/21/23 09/20/23 Rx calcitriol 0.25 mcg capsule 0.25 mcg PO DAILY 09/17/21 09/21/23 09/20/23 History ergocalciferol (vitamin D2) 1,250 1,250 mcg PO DAILY 09/17/21 09/21/23 09/20/23 History mcg (50,000 unit) capsule (Vitamin D2) ondansetron 4 mg disintegrating 4 mg PO DAILY PRN Nausea 09/17/21 09/21/23 09/13/21 History tablet loperamide 2 mg capsule (Imodium 2 mg PO Q6H PRN loose stool #10 09/22/21 09/21/23 Unknown Rx A-D) caps Short CAM Boot to the Left #1 ea 09/26/21 09/21/23 Unknown Rx TANANA BOOT to RIGHT #1 ea 11/28/21 09/21/23 Unknown Rx aspirin 81 mg tablet,delayed 81 mg PO DAILY 09/21/23 09/21/23 09/20/23 History release hydralazine 25 mg tablet 50 mg PO TID 09/21/23 09/21/23 09/20/23 History metoprolol tartrate 25 mg tablet 25 mg PO BID 09/21/23 09/21/23 09/20/23 History sertraline 100 mg tablet 100 mg PO DAILY 09/21/23 09/21/23 09/20/23 History Allergies Allergy/AdvReac Type Severity Reaction Status Date / Time codeine Allergy ALGY-Hives Verified 09/21/23 07:56 morphine Allergy Unknown Verified 09/21/23 07:56 Penicillins Allergy Unknown Verified 09/21/23 07:56 Sulfa (Sulfonamide Allergy Unknown Verified 09/21/23 07:56 Antibiotics) PFSH Acute 2 PFSH: Medical History (Updated 09/21/23 @ 13:16 by Eliseo Aguirre MD) Depression GERD (gastroesophageal reflux disease) Thrombocytosis Diabetic peripheral neuropathy associated with type 2 diabetes mellitus Carotid artery stenosis Carotid artery disease Acute CVA (cerebrovascular accident) UTI (urinary tract infection) Aphasia Acute kidney injury superimposed on chronic kidney disease Sepsis Aspiration pneumonitis Chronic kidney disease PUD (peptic ulcer disease) Hypertension Stroke Charcot foot due to diabetes mellitus Coronary artery disease Osteomyelitis Diabetes Diabetic foot ulcer History of hyperbaric oxygen therapy Acute cystitis Cerebrovascular accident Patient with ongoing aphasia Surgical History S/P PICC central line placement Patient had tunneled left subclavian central line for IV antibiotics for osteomyelitis which was removed by Dr. Zelaya 2017 S/P carotid endarterectomy Family History Other Family history non-contributory Social History Smoking and tobacco/nicotine status: never used tobacco/nicotine Alcohol intake: never Substance/Drug Use: never Household members: family Housing: House Vitals/I&O/Wt Last Vital Signs Temp 98.0 F 09/21/23 07:47 Pulse 82 09/21/23 12:10 Resp 20 H 09/21/23 09:23 BP 189/110 09/21/23 12:10 Pulse Ox 94 09/21/23 12:10 O2 Del Method Room Air 09/21/23 10:23 Weight last 48 hrs Weight 91.172 kg Physical Exam 2 Narrative: General exam demonstrates a white female, able to answer some questions but also seems somewhat confused. Often falls asleep. HEENT: Atraumatic normocephalic. Pupils equally round. Oropharynx is clear. Neck is supple no lymphadenopathy thyromegaly. Small contusion/hematoma noted laterally. Cardiovascular regular rate and rhythm without murmur, no S3 or S4 Lungs clear no wheezing or crackles Abdomen is soft. Tenderness is present on the left side. No obvious organomegaly exams deferred Extremities trace edema bilaterally right greater than left with Charcot joint on the right. Skin no rash Neuro no obvious focal deficits although patient often falls asleep and appears somewhat confused. Data 09/21/23 06:58 09/21/23 06:58 Other Labs: Abdomen and pelvis CT demonstrate question cirrhosis, mild splenomegaly. Cholelithiasis without cholecystitis. Some cystic kidney disease. Moderate colonic diverticulosis with possible diverticulitis with fat stranding around the sigmoid colon. Atherosclerotic disease is noted. I reviewed this as well. Lumbar spine CT negative for fracture Foot x-ray on right with Charcot abnormality no fracture Chest x-ray with no fracture, atherosclerotic disease is noted. No obvious infiltrate Head CT no acute changes. I reviewed this as well. Cervical spine CT no fracture Monocytes elevated at 1.5 LFTs normal with exception of alk phos of 159 Calcium and albumin normal Troponin baseline 17 TSH and magnesium ordered and pending Urinalysis with 5-10 whites, 3+ bacteria, 3+ protein and negative leukocyte Estrace Last EKG which I reviewed demonstrates sinus rhythm, rate around 80. Poor R wave progression. Intraventricular conduction delay. Flipped T waves noted aVL. Micro: Microbiology 09/21/23 08:41 Blood Culture - Preliminary Blood SPECIMEN COLLECTED 09/21/23 08:35 Blood Culture - Preliminary Blood SPECIMEN COLLECTED A&P Assessment and plan (1) Acute diverticulitis: Patient has evidence of acute diverticulitis. She has fat stranding around her sigmoid colon, and diverticulosis was previously noted. She has been having some GI symptomatology with decreased p.o. intake, although she reports she has been keeping up on liquids. Cipro and Flagyl have been initiated, continue N.p.o. for now Hydration Start clear liquids when improved Currently associated with intractable pain (2) UTI (urinary tract infection): Concern of UTI Obtain urine culture Continue Cipro IV for diverticulitis, which will cover both. Last urinary tract infection was only resistant to doxycycline. (3) Acute encephalopathy: Currently patient has acute encephalopathy. This may be secondary to morphine the patient received, but cannot completely rule out UTI or diverticulitis as etiology. She also had a recent syncopal event. Will have to make sure this improves with time Neurologic checks Note that she has had a CVA in the past Note that she has had a carotid endarterectomy Note that CT and neurologic exam appears stable currently. (4) Syncope: Patient with syncopal episode Etiology unknown Telemetry Echocardiogram Orthostatic blood pressures (5) Chronic kidney disease: Avoid renal toxic medication CMP daily (6) Abnormal EKG: Serial troponins and EKGs Echocardiogram Continue the patient's aspirin, beta-joya. Note she has a history of coronary disease. (7) Hematoma: She has a hematoma on her right neck, as well as her right back SCDs for DVT prophylaxis currently. If no progression hematomas consider pharmacological anticoagulation tomorrow. Can continue low-dose aspirin Currently associated with intractable pain requiring IV pain medication Dilaudid will be used for pain control, multiple repetitive doses of morphine contraindicated with her kidney dysfunction PT consultation secondary to back pain. (8) Thrombocytosis: Patient with significant thrombocytosis Note that she is on hydroxyurea every other day Request records from [facility] Increase hydroxyurea to once daily Continue low-dose aspirin Check CBC in the morning (9) Hypertension: Continue home medication Monitor for improvement Note the patient has had a consideration or diagnosis of PRES in the past (10) Diabetes: Sliding scale insulin Consistent carb diet when diet initiated Plan Other medical problems as outlined by past medical history Full code SCDs for DVT prophylaxis. Secondary to hematomas, hold off on pharmacologic anticoagulation currently. Attestations 2 Medical Necessity Statement*: Considering the multiple medical problems including diverticulitis, possible UTI, concern of encephalopathy, intractable pain she will require greater than 2 midnight stay for evaluation and treatment. Diagnoses Acute diverticulitis K57.92 UTI (urinary tract infection) N39.0 Acute encephalopathy G93.40 Syncope R55 Chronic kidney disease N18.9 Abnormal EKG R94.31 Hematoma T14.8XXA Thrombocytosis D75.839 Hypertension I10 Diabetes E11.9 Time Spent (min) 68
[2023-09-21 13:01] LABS: Troponin(5th) Baseline 17 ng/L (0-10)
[2023-09-21 13:12] LABS: Thyroid Stimulating Hormone 1.37 uIU/mL (0.27-4.20)
--- NOTE | 2023-09-21 13:37 | PC.PHAR ---
PT HAD ASPIRIN 81MG LISTED TWICE, WHICH WAS AN ERROR. ROSARIOT STATES PT IS TAKING LISINOPRIL 5 MG DAILY, CARVEDILOL 12.5MG 2 TABLETS TWICE DAILY, AND HAS NTG 0.4MG FROM 12/11/22.
[2023-09-21] MEDS: HYDROmorphone 1 mg/mL INJ 1 mL IVP (13:48)
[2023-09-21] MEDS: amlodipine 10 mg Tablet PO (13:49)
[2023-09-21] MEDS: metroNIDAZOLE IV 500 MG/100 ML PREMIX 100 MG IV ×2 (13:49→21:09)
[2023-09-21] MEDS: ondansetron 2 mg/ML SDV 2 mL 4 MG IVP ×2 (13:55→21:11)
--- NOTE | 2023-09-21 14:14 | ECG_ITS ---
[facility] Test Date: 2023-09-21 Pat Name: Katy Noble Department: Room: 256 Gender: Female Partnership Manager: : 1945 Requested By: Eliseo Guillen Order Number: [id number] Jackson MD: Shakir Vargas M.D. Measurements Intervals [place] Rate: 76 P: 70 MI: 188 QRS: -68 QRSD: 136 T: 80 QT: 420 QTc: 474 Interpretive Statements SINUS RHYTHM LEFT AXIS DEVIATION [QRS AXIS < -30] INTRAVENTRICULAR CONDUCTION DELAY [130+ ms QRS DURATION] POSSIBLE ANTERIOR MYOCARDIAL INFARCTION , OF INDETERMINATE AGE [30 ms Q WAVE IN V3/V4, OR R < 0.2 mV IN V4] Compared to ECG 09/21/2023 12:20:31 Sinus arrhythmia no longer present Myocardial infarct finding still present Electronically Signed On 09-21-2023 18:08:32 CDT by Shakir Vargas M.D. [id number]
--- NOTE | 2023-09-21 14:22 | USCV_ITS ---
Katy Noble Age: 77 Gender: F : 1945 Exam Date: 09/21/2023 16:28 Ordering Phys: Eliseo Aguirre MD Technologist: CT Exam Location: [facility] [place] Indication: syncope BP: 140 / 92 HR: 74 Rhythm: Sinus Technical Quality: Adequate MEASUREMENTS (Male / Female) Normal Values 2D ECHO LVOT Diameter 2.1 cm LV Ejection Fraction MOD 2C 77.5 % LV Ejection Fraction 2C AL 79.0 % LA Diameter 4.7 cm RA Systolic Volume 4C AL 85.9 ml RA Systolic Volume 4C MOD 84.2 ml Aorta at Sinotubular Diameter 2.6 cm IVC Diameter 1.7 cm M-MODE LA Ao Ratio MM 2.0 AV Cusp Separation MM 2.2 cm DOPPLER AV Peak Velocity 171.0 cm/s AV Area Cont Eq vti 2.7 cm squared AV Area Cont Eq pk 2.1 cm squared MV Peak Velocity 293.7 cm/s MV Area PHT 5.2 cm squared Mitral E to A Ratio 0.6 TV Peak Velocity 260.0 cm/s TR Peak Velocity 268.0 cm/s TR Peak Gradient 28.7 mmHg TV Peak E Velocity 74.0 cm/s Right Atrial Pressure 3.0 mmHg Pulmonary Artery Systolic Pressu 31.7 mmHg PV Peak Velocity 120.0 cm/s FINDINGS Left Ventricle Normal left ventricular size and systolic function, EF 78%. Mild to moderate left ventricular hypertrophy. No regional wall motion abnormalities. Grade I/IV diastolic dysfunction (abnormal relaxation filling pattern), normal to mildly elevated filling pressures. Right Ventricle The right ventricle is normal in size and function. Right Atrium The right atrium is normal in size. Left Atrium Mildly increased left atrial size. Mitral Valve Mild mitral annular calcification. Mild mitral valve regurgitation. Aortic Valve Some features of aortic valve sclerosis Tricuspid Valve Trace tricuspid valve regurgitation. Pulmonic Valve No gross abnormalities noted Pericardium Normal pericardium without effusion. Aorta Normal ascending aorta dimension. IVC Normal inferior vena cava. CONCLUSIONS Normal left ventricular size and systolic function, EF 78%. Mild to moderate left ventricular hypertrophy. No regional wall motion abnormalities. Grade I/IV diastolic dysfunction (abnormal relaxation filling pattern), normal to mildly elevated filling pressures. Mildly increased left atrial size. Mild mitral annular calcification. Mild mitral valve regurgitation. Some features of aortic valve sclerosis. Trace tricuspid valve regurgitation. Estimated pulmonary artery peak systolic pressure 32 mmHg There is no pericardial effusion. There are no intracardiac masses. No similar previous studies are available for comparison Dr Herbert Brown MD [facility] (Electronically Signed) Final Date: 22 Sep 2023 07:03 S
[2023-09-21] MEDS: sodium chloride 0.9% 1,000 ML 100 ML IV (15:07)
[2023-09-21 15:20] LABS: Troponin 5 2HR 18.47 ng/L (0-10); Troponin 5 2HR Delta 1.47 ABS# (0-10)
--- NOTE | 2023-09-21 16:45 | PC.RESP ---
pt not available for ekg at this time
[2023-09-21 17:03] LABS: Glucose Point of Care 218 mg/dL (70-110)
[2023-09-21] MEDS: famotidine 20 mg Tablet PO (17:37)
[2023-09-21] MEDS: insulin lispro 100 unit/1 mL SUBCUT (17:37)
[2023-09-21] MEDS: metoprolol tartrate 25 mg Tablet PO (17:37)
--- NOTE | 2023-09-21 17:52 | ECG_ITS ---
[facility] Test Date: 2023-09-21 Pat Name: Katy Noble Department: Room: 256 Gender: Female Tool Chaser: : 1945 Requested By: Eliseo Guillen Order Number: [id number] Jackson MD: Shakir Vargas M.D. Measurements Intervals [place] Rate: 78 P: 59 ME: 190 QRS: -56 QRSD: 131 T: 76 QT: 415 QTc: 474 Interpretive Statements SINUS RHYTHM POSSIBLE LEFT ATRIAL ENLARGEMENT [-0.1mV P-WAVE IN V1/V2] LEFT AXIS DEVIATION [QRS AXIS < -30] INTRAVENTRICULAR CONDUCTION DELAY [130+ ms QRS DURATION] POSSIBLE LEFT VENTRICULAR HYPERTROPHY [VOLTAGE CRITERIA PLUS LAE OR QRS WIDENING] POSSIBLE ANTERIOR MYOCARDIAL INFARCTION , OF INDETERMINATE AGE [30 ms Q WAVE IN V3/V4, OR R < 0.2 mV IN V4] Compared to ECG 09/21/2023 17:26:01 No significant changes Electronically Signed On 09-21-2023 18:08:26 CDT by Shakir Vargas M.D. [id number]
[2023-09-21 20:21] LABS: Troponin 5 6HR 18.74 ng/L (0-10); Troponin 5 6HR Delta 1.74 ng/L (0-12)
[2023-09-21] MEDS: hyDRALAzine 25 mg Tablet 50 MG PO (21:09)
[2023-09-21] MEDS: gabapentin 300 mg Capsule PO (21:09)
[2023-09-21] MEDS: oxyCODONE 5 mg IR Tab/Cap PO (21:10)
[2023-09-21 21:15] LABS: Glucose Point of Care 167 mg/dL (70-110)
[2023-09-22] VITALS (16 sets, daily range): BP systolic 144–189; BP diastolic 65–82; PULSE 72–89; RESP 17–22; TEMP 36.4–37.2; O2SAT 91–98; BMI 27.0
[2023-09-22] MEDS: sodium chloride 0.9% 1,000 ML 100 ML IV (00:31)
[2023-09-22] MEDS: HYDROmorphone 1 mg/mL INJ 1 mL IVP ×5 (00:31→21:02)
[2023-09-22] MEDS: ciprofloxacin 400 MG/200 ML PREMIX 200 MG IV ×2 (00:31→13:16)
[2023-09-22] MEDS: metroNIDAZOLE IV 500 MG/100 ML PREMIX 100 MG IV ×4 (03:10→21:01)
[2023-09-22] MEDS: hyDRALAzine 20 mg/mL INJ 1 mL 10 MG IVP (04:53)
[2023-09-22 05:08] LABS: Basophils # 0.2 10^3/uL (0.0-0.1); Basophils % 0.7 %; Eosinophils # 0.5 10^3/uL (0.0-0.8); Eosinophils % 1.9 %; Hematocrit 41.6 % (36-47); Lymphocytes # 1.1 10^3/uL (0.8-4.8); Lymphocytes % 4.3 %; Mean Corpuscular HGB Conc 28.1 g/dL (30-55); Mean Corpuscular Hemoglobin 19.4 pg (27-33); Mean Corpuscular Volume 68.9 fl (85-98); Mean Platelet Volume 9.2 fL (7.4-10.4); Monocytes # 1.5 10^3/uL (0.2-0.9); Neutrophils # 21.41 10^3/uL (1.8-7.7); Neutrophils % 82.8 %; Nucleated Red Blood Cells % 0 %; Platelet Count 813 10^3/cmm (157-399); Red Blood Count 6.04 10^6/uL (3.85-5.65); Red Cell Distribution Width 23.5 % (12.1-15.1); White Blood Count 25.85 10^3/uL (3.29-11.43)
[2023-09-22 05:28] LABS: Alanine Aminotransferase 8 U/L (0-33); Albumin Level 3.4 g/dL (3.5-5.2); Alkaline Phosphatase 128 U/L (35-105); Anion Gap 15.3 (5-19); Aspartate Amino Transferase 16 U/L (0-32); Blood Urea Nitrogen 30 mg/dL (8-23); Calcium 9.1 mg/dL (8.5-10.5); Carbon Dioxide 23 mmol/L (22-29); Chloride 98 mmol/L (98-107); Globulin 3.3 g/dL (1.3-4.6); Glucose 211 mg/dL (65-115); Magnesium 1.9 mg/dL (1.7-2.3); Osmolality Calculated 286 mOsm/kg (285-295); Potassium 4.3 mmol/L (3.5-5.1); Sodium 132 mmol/L (136-145); Total Bilirubin 0.3 mg/dL (0.15-1.2); Total Protein 6.7 g/dL (6.6-8.7)
[2023-09-22 05:29] LABS: Creatinine Clr Calc Pharmacy 39.7385
[2023-09-22 06:38] LABS: Glucose Point of Care 193 mg/dL (70-110)
--- NOTE | 2023-09-22 08:02 | P.PN_ITS ---
Subjective 2 Subjective: Katy reports she feels better. Abdomen hurts but less so. She reports some nausea with movement but reports this is chronic since her stroke greater than 10 years ago. No headache. Denies chest pain or shortness of breath. Medications: Reviewed: Yes Vitals/I&O/Wt Last Vital Signs Temp 97.9 F 09/22/23 07:52 Pulse 77 09/22/23 07:52 Resp 18 09/22/23 07:52 BP 164/68 09/22/23 07:52 Pulse Ox 95 09/22/23 07:52 O2 Del Method Nasal Cannula 09/22/23 07:52 O2 Flow Rate 2 09/21/23 20:00 09/21/23 09/22/23 09/22/23 22:59 06:59 14:59 Intake Total 400 / 400 1240 / 1640 Balance 400 / 400 1240 / 1640 Weight last 48 hrs Weight 87.997 kg Weight 89.358 kg Weight 91.172 kg Physical Exam 2 Narrative: General exam no distress Neck is supple no lymphadenopathy thyromegaly. Small contusion/hematoma noted laterally which is unchanged. Cardiovascular regular rate and rhythm without murmur, no S3 or S4 Lungs clear no wheezing or crackles Abdomen is soft. Tenderness is present on the left side. No obvious organomegaly Extremities trace edema bilaterally right greater than left with Charcot joint on the right. Skin no rash. Bruising right parathoracic area unchanged Neuro no focal deficits, alert and oriented Data 09/22/23 04:44 09/22/23 04:44 Micro: Microbiology 09/21/23 08:41 Blood Culture - Preliminary Blood SPECIMEN COLLECTED 09/21/23 08:35 Blood Culture - Preliminary Blood SPECIMEN COLLECTED A&P Assessment and plan (1) Acute diverticulitis: Patient has evidence of acute diverticulitis. She has fat stranding around her sigmoid colon, and diverticulosis was previously noted. She has been having some GI symptomatology with decreased p.o. intake, although she reports she has been keeping up on liquids. Cipro and Flagyl have been initiated, continue Initiate clear liquids Reduce IV fluids Start clear liquids when improved Pain is under better control (2) UTI (urinary tract infection): Concern of UTI Await urine culture, currently growing gram-negative rods Continue Cipro IV for diverticulitis, which will cover both. Last urinary tract infection was only resistant to tetracycline (3) Acute encephalopathy: Currently patient has acute encephalopathy. This may be secondary to morphine the patient received, but cannot completely rule out UTI or diverticulitis as etiology. She also had a recent syncopal event. Will have to make sure this improves with time Neurologic checks Note that she has had a CVA in the past Note that she has had a carotid endarterectomy Note that CT and neurologic exam appears stable currently. Encephalopathy has now resolved. (4) Syncope: Patient with syncopal episode Etiology unknown Telemetry no arrhythmias currently See results of echo below Orthostatic blood pressures will be measured twice daily (5) Chronic kidney disease: Avoid renal toxic medication CMP daily Check serum protein electrophoresis and urine protein immune pheresis (6) Abnormal EKG: Serial troponins and EKGs Echocardiogram demonstrates normal EF, 1/4 diastolic dysfunction, mild to moderate LVH Continue the patient's aspirin, beta-joya. Note she has a history of coronary disease. (7) Hematoma: She has a hematoma on her right neck, as well as her right back SCDs for DVT prophylaxis currently. If no progression hematomas consider pharmacological anticoagulation tomorrow. Can continue low-dose aspirin Overall improved Dilaudid will be used for pain control, multiple repetitive doses of morphine contraindicated with her kidney dysfunction PT consultation secondary to back pain. Can initiate DVT prophylaxis today CT thoracic and lumbar spine no significant findings (8) Thrombocytosis: Patient with significant thrombocytosis Note that she is on hydroxyurea every other day Request records from [facility] Continue higher dose of hydroxyurea Continue low-dose aspirin Check CBC in the morning (9) Hypertension: Continue home medication Monitor for improvement Note the patient has had a consideration or diagnosis of PRES in the past (10) Diabetes: Sliding scale insulin Consistent carb diet, clear liquids today. If tolerates consider increasing to full liquids. Plan Other medical problems as outlined by past medical history Full code SCDs for DVT prophylaxis. Secondary to hematomas, hold off on pharmacologic anticoagulation currently. Earliest possible discharge tomorrow if tolerates diet, pain decreases, and has significant improvement. White blood cell count has not significantly improved currently. Attestations 2 Medical Necessity Statement*: Needs continued IV antibiotics secondary to diverticulitis, significantly symptomatic, with need to initiate diet. Also awaiting cultures. White blood cell count not significantly improved currently. Diagnoses Acute diverticulitis K57.92 UTI (urinary tract infection) N39.0 Acute encephalopathy G93.40 Syncope R55 Chronic kidney disease N18.9 Abnormal EKG R94.31 Hematoma T14.8XXA Thrombocytosis D75.839 Hypertension I10 Diabetes E11.9 Time Spent (min) 24
[2023-09-22 08:20] LABS: Lactate Dehydrogenase 215 U/L (135-214)
--- NOTE | 2023-09-22 09:20 | PC.CHAP ---
Pastoral Care Encounter/Spiritual Assessment Type of Contact [] Declined dioramist visit [] Patient/Family/Request visit [] Outpatient visit [] Follow-up visit [] Physician referral [] Code/Alert [x] Routine visit [] Staff referral [] Actively dying [] Patient sleeping [] Family support [] [] Out of room [] Palliative care [] [] Receiving care in room [] Pre-surgical visit [] Trauma [] Long length of stay [] ICU visit [] Other: Relational/Emotional Strength [x] Patient feels connected with others/family/visitors/staff [x] Distress [] Loneliness/isolation [] Abandonment Spirituality of Patient [x] Person of Namita [] Attends Episcopal of their Namita [x] Believes in Prayer [] Reads Bible or Mandaen materials [] There are Spiritual issues to be addressed Cloth Shrinking Supervisor Interventions [x] Prayer [x] Active listening [x] Non-anxious presence [x] Spiritual/emotional support [] Crisis/trauma care [] Spiritual counseling [] Bereavement support [] Provided bereavement packet [] Provided Bible/devotional materials [] Provided toy/stuffed animal, coloring book to patient or family member [] Provided Communion [] Anointing/[place] [] Salvation [x] Completed spiritual assessment [] Other: Impact on Illness or Injury [] Angry [] Fearful [] Anxious [] Often cries [] Exhaustion [] Unable to work [] Unable to attend nondenominational [] Unable to walk/stand [] Unable to read [] Unable to drive [] Unable to eat/drink [] Unable to sleep [] Unable to be with family [] Patient intubated [] Other: Summary Time spent with patient 5 min
[2023-09-22] MEDS: ondansetron 2 mg/ML SDV 2 mL 4 MG IVP ×2 (09:34→16:09)
[2023-09-22] MEDS: aspirin 81 mg EC Tablet PO (10:56)
[2023-09-22] MEDS: hyDRALAzine 25 mg Tablet 50 MG PO (10:56)
[2023-09-22] MEDS: sertraline 100 mg Tablet PO (10:56)
[2023-09-22] MEDS: atorvastatin 40 mg Tablet 20 MG PO (10:56)
[2023-09-22] MEDS: metoprolol tartrate 25 mg Tablet PO ×2 (10:56→17:23)
[2023-09-22] MEDS: hydroxyurea 500 mg Capsule PO (10:57)
[2023-09-22] MEDS: famotidine 20 mg Tablet PO ×2 (10:57→17:23)
[2023-09-22 11:01] LABS: Glucose Point of Care 190 mg/dL (70-110)
[2023-09-22] MEDS: sodium chloride 0.9% 1,000 ML 75 ML IV (15:05)
[2023-09-22 16:37] LABS: Glucose Point of Care 207 mg/dL (70-110)
[2023-09-22] MEDS: insulin lispro 100 unit/1 mL SUBCUT (17:24)
[2023-09-22] MEDS: gabapentin 300 mg Capsule PO (21:02)
[2023-09-22] MEDS: hyDRALAzine 25 mg Tablet 75 MG PO (21:02)
[2023-09-22 21:22] LABS: Glucose Point of Care 204 mg/dL (70-110)
[2023-09-23] VITALS (15 sets, daily range): BP systolic 147–174; BP diastolic 64–77; PULSE 78–101; RESP 16–18; TEMP 36.8–37.2; O2SAT 90–95
[2023-09-23] MEDS: ciprofloxacin 400 MG/200 ML PREMIX 200 MG IV (01:19)
[2023-09-23] MEDS: sodium chloride 0.9% 1,000 ML 75 ML IV (01:19)
[2023-09-23] MEDS: HYDROmorphone 1 mg/mL INJ 1 mL IVP ×4 (01:20→20:32)
[2023-09-23] MEDS: metroNIDAZOLE IV 500 MG/100 ML PREMIX 100 MG IV (03:10)
[2023-09-23 05:33] LABS: Hematocrit 41.2 % (36-47); Mean Corpuscular HGB Conc 28.2 g/dL (30-55); Mean Corpuscular Hemoglobin 19.4 pg (27-33); Mean Platelet Volume 9.2 fL (7.4-10.4); Platelet Count 947 10^3/cmm (157-399); Red Blood Count 5.97 10^6/uL (3.85-5.65); Red Cell Distribution Width 23.5 % (12.1-15.1)
[2023-09-23 05:54] LABS: Alanine Aminotransferase 8 U/L (0-33); Albumin Level 3.4 g/dL (3.5-5.2); Alkaline Phosphatase 129 U/L (35-105); Aspartate Amino Transferase 15 U/L (0-32); Blood Urea Nitrogen 28 mg/dL (8-23); Carbon Dioxide 23 mmol/L (22-29); Chloride 98 mmol/L (98-107); Globulin 3.3 g/dL (1.3-4.6); Glucose 224 mg/dL (65-115); Osmolality Calculated 284 mOsm/kg (285-295); Sodium 131 mmol/L (136-145); Total Bilirubin 0.3 mg/dL (0.15-1.2); Total Protein 6.7 g/dL (6.6-8.7)
[2023-09-23 05:55] LABS: Creatinine Clr Calc Pharmacy 43.0941
[2023-09-23 06:07] LABS: Slide Review Slide Review Perform
[2023-09-23 06:08] LABS: Absolute Segmented Neutrophil 27.2 10/cmm (1.6-7.1); Eosinophils 0 %; Giant Platelets Trace; Hypersegmented Polys 2+; Lymphocytes 4 %; Monocytes Absolute 1.8 10^3/cmm (0.1-0.6); Platelet Estimate Increased (Normal); Segmented Neutrophils 89 %; Total Cells Counted 100 (0-100)
[2023-09-23 06:09] LABS: White Blood Count 30.59 10^3/uL (3.29-11.43)
[2023-09-23 06:27] LABS: Glucose Point of Care 223 mg/dL (70-110)
--- NOTE | 2023-09-23 07:47 | P.PN_ITS ---
Subjective 2 Subjective: Patient is less nauseous. Abdomen still operator brandy but perhaps less. Is passing gas. No bowel movement yet. No fevers noted overnight. Urine growing gram- negative rods. Medications: Reviewed: Yes Vitals/I&O/Wt Last Vital Signs Temp 98.7 F 09/23/23 03:45 Pulse 78 09/23/23 06:00 Resp 18 09/23/23 05:16 BP 169/66 09/23/23 03:45 Pulse Ox 90 09/23/23 05:16 O2 Del Method Room Air 09/23/23 00:00 O2 Flow Rate 2 09/22/23 20:00 09/22/23 09/23/23 09/23/23 22:59 06:59 14:59 Intake Total 570 / 1720 1067.5 / 2787.5 Output Total 0 / 0 Balance 570 / 1720 1067.5 / 2787.5 Weight last 48 hrs Weight 90.356 kg Weight 87.997 kg Weight 89.358 kg Physical Exam 2 Narrative: General exam no distress Neck is supple no lymphadenopathy thyromegaly. Small contusion/hematoma noted laterally which is unchanged. Cardiovascular regular rate and rhythm without murmur, no S3 or S4 Lungs clear no wheezing or crackles Abdomen is soft. Tenderness is present on the left side. No obvious organomegaly. Tenderness perhaps slightly less than yesterday. Extremities trace edema bilaterally right greater than left with Charcot joint on the right. Skin no rash. Bruising right parathoracic area unchanged Neuro no focal deficits, alert and oriented Data 09/23/23 05:09 09/23/23 05:09 Micro: Microbiology 09/21/23 08:41 Blood Culture - Preliminary Blood NEGATIVE TO DATE 09/21/23 08:35 Blood Culture - Preliminary Blood NEGATIVE TO DATE 09/21/23 10:17 Urine Culture - Preliminary Urine,Clean Catch Gram Negative Rods A&P Assessment and plan (1) Acute diverticulitis: Patient has evidence of acute diverticulitis. She has fat stranding around her sigmoid colon, and diverticulosis was previously noted. She has been having some GI symptomatology with decreased p.o. intake, although she reports she has been keeping up on liquids. White blood cell count is increasing. Potential is her current condition is not responsive to her current antibiotics. She also has gram-negative rods in her urine, and there is always a risk of ESBL although she has never had this in the past. Change back to n.p.o. except for ice chips and meds Increase fluids Continue pain control If any worsening repeat CT scan. 72 hours will be tomorrow from her last scan. I do not want to expose her to any unneeded radiological dye considering her renal insufficiency. (2) UTI (urinary tract infection): Concern of UTI Await urine culture, currently growing gram-negative rods Discontinue Cipro and Flagyl. Changed to meropenem. Bladder scan (3) Acute encephalopathy: Currently patient has acute encephalopathy. This may be secondary to morphine the patient received, but cannot completely rule out UTI or diverticulitis as etiology. She also had a recent syncopal event. Will have to make sure this improves with time Neurologic checks Note that she has had a CVA in the past Note that she has had a carotid endarterectomy Note that CT and neurologic exam appears stable currently. Encephalopathy has now resolved. (4) Syncope: Patient with syncopal episode Etiology unknown Telemetry no arrhythmias currently See results of echo below Orthostatic blood pressures will be measured twice daily. No orthostasis noted. (5) Chronic kidney disease: Avoid renal toxic medication CMP daily Await serum protein electrophoresis and urine protein immune pheresis Renal function slightly improved. Increase fluids as making NPO. (6) Abnormal EKG: Serial troponins and EKGs Echocardiogram demonstrates normal EF, 1/4 diastolic dysfunction, mild to moderate LVH Continue the patient's aspirin, beta-joya. Note she has a history of coronary disease. (7) Hematoma: She has a hematoma on her right neck, as well as her right back SCDs for DVT prophylaxis currently. Heparin will be initiated now. Can continue low-dose aspirin Overall improved Dilaudid will be used for pain control, multiple repetitive doses of morphine contraindicated with her kidney dysfunction PT consultation secondary to back pain. Can initiate DVT prophylaxis today CT thoracic and lumbar spine no significant findings (8) Thrombocytosis: Patient with significant thrombocytosis. This is not improved. Note that she is on hydroxyurea every other day Request records from [facility] Continue higher dose of hydroxyurea Continue low-dose aspirin Check CBC in the morning (9) Hypertension: Continue home medication Monitor for improvement Note the patient has had a consideration or diagnosis of PRES in the past (10) Diabetes: Sliding scale insulin Consistent carb diet, clear liquids today. If tolerates consider increasing to full liquids. Plan Other medical problems as outlined by past medical history Full code SCDs for DVT prophylaxis. Okay to initiate heparin as hemoglobin and hematomas are stable. Attestations 2 Medical Necessity Statement*: Needs continued hospitalization secondary to increasing white blood cell count, persistent nausea and abdominal pain in this patient with diverticulitis and UTI. Concern exists with increasing white blood cell count necessitating change in antibiotics, changed back to n.p.o. status. Potential need for repeat CT if does not improve. Diagnoses Acute diverticulitis K57.92 UTI (urinary tract infection) N39.0 Acute encephalopathy G93.40 Syncope R55 Chronic kidney disease N18.9 Abnormal EKG R94.31 Hematoma T14.8XXA Thrombocytosis D75.839 Hypertension I10 Diabetes E11.9 Time Spent (min) 29
[2023-09-23] MEDS: meropenem 1,000 MG in sodium chloride 0.9% (plus) 50 ML 100 MG IV ×3 (08:46→22:29)
[2023-09-23] MEDS: amlodipine 10 mg Tablet PO (08:47)
[2023-09-23] MEDS: hyDRALAzine 25 mg Tablet 75 MG PO ×2 (08:47→20:29)
[2023-09-23] MEDS: atorvastatin 40 mg Tablet 20 MG PO (08:47)
[2023-09-23] MEDS: sertraline 100 mg Tablet PO (08:47)
[2023-09-23] MEDS: famotidine 20 mg Tablet PO ×2 (08:48→18:00)
[2023-09-23] MEDS: hydroxyurea 500 mg Capsule PO (08:48)
[2023-09-23] MEDS: aspirin 81 mg EC Tablet PO (08:48)
[2023-09-23] MEDS: heparin 5,000 unit/mL INJ 1 mL 5000 UNIT SUBCUT ×2 (08:49→20:29)
[2023-09-23 10:44] LABS: Glucose Point of Care 201 mg/dL (70-110)
--- NOTE | 2023-09-23 14:18 | CTR_ITS ---
PROCEDURE INFORMATION: Exam: CT Abdomen And Pelvis With Contrast Exam date and time: 09/23/2023 8:05 PM Age: 77 years old Clinical indication: Abdominal pain; Additional info: Worsening abdominal pain, leukocytosis TECHNIQUE: Imaging protocol: Computed tomography of the abdomen and pelvis with contrast. Radiation optimization: All CT scans at this facility use at least one of these dose optimization techniques: automated exposure control; mA and/or kV adjustment per patient size (includes targeted exams where dose is matched to clinical indication); or iterative reconstruction. Contrast material: OMNI 350; Contrast volume: 100 ml; Contrast route: INTRAVENOUS (IV); COMPARISON: CT kidney stone [id number] 09/21/2023 9:08 AM RADIATION DOSE METRICS: Total DLP (mGy-cm): 896.4 FINDINGS: Lungs: Small right-sided pleural effusion. Diaphragm: No evidence of diaphragmatic defect. Liver: No focal hepatic lesion. Gallbladder and bile ducts: There is cholelithiasis. No inflammatory changes to suggest acute cholecystitis. There is gallbladder distension. No intrahepatic or extrahepatic biliary dilatation. Pancreas: Moderately atrophic. Otherwise grossly unremarkable. Spleen: Mild splenomegaly measuring 13.5 cm in length. Adrenal glands: Unremarkable. Kidneys and ureters: There are simple appearing renal cysts for which dedicated imaging follow-up is not required. Nonobstructive left-sided renal stone measuring 3 mm. Otherwise no evidence of renal parenchymal abnormality. No hydronephrosis or ureteral stone. Stomach and bowel: Colonic diverticulosis without evidence of acute diverticulitis. No bowel obstruction or perienteric inflammatory changes. Appendix: The appendix is not visualized, however there are no findings to suggest appendicitis. Intraperitoneal space: No evidence of free air or fluid collection. Vasculature: Extensive aortobiiliac atherosclerosis without aneurysmal dilatation or dissection. The celiac trunk, SMA and ROSELYN are grossly patent. Moderate-severe narrowing of the origin of the SMA secondary to predominantly densely calcified atherosclerotic plaque. No evidence of IVC thrombus. The portal vein, SMV and splenic veins are grossly patent. Lymph nodes: No adenopathy. Urinary bladder: There is a small amount of air within the bladder. Consider correlation with urinalysis to exclude cystitis with a gas-forming organism. Reproductive: Prior hysterectomy. Bones/joints: No evidence of acute fracture or aggressive osseous lesion. Moderate dextroscoliosis centered at L2. Severe multilevel spondylosis of the lumbar spine with facet arthrosis, osteophytosis and endplate degeneration. L4-L5 posterior instrumented fusion. There is severe L3-L4 central stenosis with likely cauda equina nerve root impingement. Soft tissues: No evidence of fluid collection or hematoma in the superficial soft tissues. CT/CT abdomen pelvis w con* [id number] IMPRESSION: 1. Questionable cystitis. Correlation with urinalysis is recommended. Otherwise no evidence of acute abnormality in the abdomen or pelvis. 2. Severe L3-L4 central stenosis with likely cauda equina nerve root impingement. 3. Moderate-severe narrowing of the proximal SMA. Consider follow-up outpatient vascular evaluation. 4. Cholelithiasis with gallbladder distension raising the question of symptomatic cholelithiasis.
[2023-09-23] MEDS: sodium chloride 0.9% 1,000 ML 125 ML IV (15:49)
[2023-09-23] MEDS: ondansetron 2 mg/ML SDV 2 mL 4 MG IVP (15:49)
[2023-09-23 16:53] LABS: Glucose Point of Care 229 mg/dL (70-110)
[2023-09-23] MEDS: insulin lispro 100 unit/1 mL SUBCUT ×2 (17:59→21:38)
[2023-09-23] MEDS: metoprolol tartrate 25 mg Tablet PO (18:00)
[2023-09-23 19:23] LABS: Glucose Point of Care 196 mg/dL (70-110)
[2023-09-23] MEDS: iohexol 350 mg/mL 500 mL Btl (per mL) IV (20:15)
[2023-09-23] MEDS: gabapentin 300 mg Capsule PO (20:30)
[2023-09-23 20:38] LABS: Glucose Point of Care 182 mg/dL (70-110)
[2023-09-23 23:10] LABS: Lactate (Lactic Acid level) 0.7 mmol/L (0.5-2.2)
[2023-09-24] VITALS (13 sets, daily range): BP systolic 147–186; BP diastolic 63–82; PULSE 82–90; RESP 16–18; TEMP 36.7–37.1; O2SAT 93–96
[2023-09-24] MEDS: sodium chloride 0.9% 1,000 ML 125 ML IV ×3 (00:08→18:15)
[2023-09-24] MEDS: HYDROmorphone 1 mg/mL INJ 1 mL IVP ×3 (01:48→17:37)
[2023-09-24 05:11] LABS: Basophils # 0.2 10^3/uL (0.0-0.1); Basophils % 0.6 %; Eosinophils # 0.3 10^3/uL (0.0-0.8); Eosinophils % 1.2 %; Lymphocytes % 3.4 %; Mean Corpuscular HGB Conc 27.9 g/dL (30-55); Mean Corpuscular Hemoglobin 19.4 pg (27-33); Mean Corpuscular Volume 69.3 fl (85-98); Mean Platelet Volume 9.7 fL (7.4-10.4); Monocytes # 1.6 10^3/uL (0.2-0.9); Monocytes % 5.6 %; Neutrophils # 24.82 10^3/uL (1.8-7.7); Neutrophils % 85.2 %; Nucleated Red Blood Cells % 0.1 %; Platelet Count 804 10^3/cmm (157-399); Red Blood Count 5.63 10^6/uL (3.85-5.65); Red Cell Distribution Width 23.7 % (12.1-15.1); White Blood Count 29.14 10^3/uL (3.29-11.43)
[2023-09-24 05:27] LABS: Alanine Aminotransferase 9 U/L (0-33); Alkaline Phosphatase 140 U/L (35-105); Anion Gap 13.7 (5-19); Aspartate Amino Transferase 15 U/L (0-32); Blood Urea Nitrogen 26 mg/dL (8-23); Calcium 8.7 mg/dL (8.5-10.5); Carbon Dioxide 21 mmol/L (22-29); Chloride 101 mmol/L (98-107); Creatinine Clr Calc Pharmacy 49.3249; Globulin 3.1 g/dL (1.3-4.6); Glucose 166 mg/dL (65-115); Osmolality Calculated 283 mOsm/kg (285-295); Potassium 3.7 mmol/L (3.5-5.1); Sodium 132 mmol/L (136-145); Total Bilirubin 0.3 mg/dL (0.15-1.2); Total Protein 6.1 g/dL (6.6-8.7)
[2023-09-24 06:12] LABS: LAB Peripheral Smear Sent for Review
[2023-09-24] MEDS: meropenem 1,000 MG in sodium chloride 0.9% (plus) 50 ML 100 MG IV ×3 (06:13→22:34)
[2023-09-24 06:39] LABS: Glucose Point of Care 177 mg/dL (70-110)
[2023-09-24] MEDS: sertraline 100 mg Tablet PO (08:41)
[2023-09-24] MEDS: atorvastatin 40 mg Tablet 20 MG PO (08:41)
[2023-09-24] MEDS: metoprolol tartrate 25 mg Tablet PO ×2 (08:41→17:32)
[2023-09-24] MEDS: hydroxyurea 500 mg Capsule PO (08:41)
[2023-09-24] MEDS: insulin lispro 100 unit/1 mL SUBCUT ×4 (08:41→21:13)
[2023-09-24] MEDS: amlodipine 10 mg Tablet PO (08:42)
[2023-09-24] MEDS: heparin 5,000 unit/mL INJ 1 mL 5000 UNIT SUBCUT ×2 (08:42→20:05)
[2023-09-24] MEDS: hyDRALAzine 25 mg Tablet 75 MG PO ×3 (08:42→20:05)
[2023-09-24] MEDS: aspirin 81 mg EC Tablet PO (08:42)
[2023-09-24] MEDS: famotidine 20 mg Tablet PO ×2 (08:42→18:39)
--- NOTE | 2023-09-24 10:29 | PM.PN ---
Subjective Subjective: Katy reports she is feeling a little bit better today. We have not yet received records from [facility]. She has not had any nausea or vomiting today. Her abdomen still hurts somewhat. She would like to initiate a diet. Medications: Reviewed: Yes Vitals/I&O/Wt Last Vital Signs Temp 98.7 F 09/24/23 04:00 Pulse 90 09/24/23 09:35 Resp 18 09/24/23 09:24 BP 165/65 09/24/23 08:00 Pulse Ox 93 09/24/23 09:35 O2 Del Method Room Air 09/24/23 09:35 O2 Flow Rate 2 09/22/23 20:00 09/23/23 09/24/23 09/24/23 22:59 06:59 14:59 Intake Total 50 / 1100 1460 / 2560 1120 / 1120 Output Total 850 / 1550 Balance -800 / -450 1460 / 1010 1120 / 1120 Weight last 48 hrs Weight 86.636 kg Weight 90.356 kg Physical Exam Narrative: General exam no distress Neck is supple no lymphadenopathy thyromegaly. Small contusion/hematoma noted laterally which is unchanged. Cardiovascular regular rate and rhythm without murmur, no S3 or S4 Lungs clear no wheezing or crackles Abdomen is soft. Tenderness is present on the left side. No obvious organomegaly. Tenderness perhaps slightly less than yesterday. Extremities trace edema bilaterally right greater than left with Charcot joint on the right. Skin no rash. Bruising right parathoracic area unchanged Neuro no focal deficits, alert and oriented. No sacral paresthesia, normal movement of her feet Data 09/24/23 04:42 09/24/23 04:42 Micro: Microbiology 09/21/23 10:17 Urine Culture - Final Urine,Clean Catch Escherichia coli A&P Assessment and plan (1) Acute diverticulitis: Patient has evidence of acute diverticulitis. She has fat stranding around her sigmoid colon, and diverticulosis was previously noted. She has been having some GI symptomatology with decreased p.o. intake, although she reports she has been keeping up on liquids. White blood cell count is increasing. Potential is her current condition is not responsive to her current antibiotics. She also has gram-negative rods in her urine, and there is always a risk of ESBL although she has never had this in the past. Clinically improving. Go ahead and initiate liquid diet Decrease fluids slightly Continue pain control CT scan repeated secondary to worsening white blood cell count. This demonstrated questionable cystitis, severe central stenosis L3/4. There is comments of cauda equina but she does not have this clinically. Moderate to severe narrowing of SMA with no clot. Note that a lactate was done and normal. She is symptomatically significantly improved. This can be followed up as an outpatient if she has continued improvement. Cholelithiasis with gallbladder distention was noted. Will go ahead and get a gallbladder ultrasound. However, her pain was mainly left-sided. (2) UTI (urinary tract infection): Concern of UTI Urine grew E. coli, sensitive to current antibiotic Bladder scan did not show significant retention (3) Acute encephalopathy: Currently patient has acute encephalopathy. This may be secondary to morphine the patient received, but cannot completely rule out UTI or diverticulitis as etiology. She also had a recent syncopal event. Will have to make sure this improves with time Neurologic checks Note that she has had a CVA in the past Note that she has had a carotid endarterectomy Note that CT and neurologic exam appears stable currently. Encephalopathy has now resolved. (4) Syncope: Patient with syncopal episode Etiology unknown Telemetry no arrhythmias currently See results of echo below Orthostatic blood pressures will be measured twice daily. No orthostasis noted. (5) Chronic kidney disease: Avoid renal toxic medication CMP daily Await serum protein electrophoresis and urine protein immune pheresis Renal function slightly significantly improved (6) Abnormal EKG: Serial troponins and EKGs Echocardiogram demonstrates normal EF, 1/4 diastolic dysfunction, mild to moderate LVH Continue the patient's aspirin, beta-joya. Note she has a history of coronary disease. (7) Hematoma: She has a hematoma on her right neck, as well as her right back SCDs for DVT prophylaxis currently. Heparin will be initiated now. Can continue low-dose aspirin Overall improved Dilaudid will be used for pain control, multiple repetitive doses of morphine contraindicated with her kidney dysfunction PT consultation secondary to back pain. Can initiate DVT prophylaxis today CT thoracic and lumbar spine no significant findings (8) Thrombocytosis: Patient with significant thrombocytosis. This is not improved. Note that she is on hydroxyurea every other day Request records from [facility] Continue higher dose of hydroxyurea Continue low-dose aspirin Check CBC in the morning Significant leukocytosis noted which I believe is somewhat high at baseline but we do not have labs for the last 2 years. Records from [facility] have been requested. She denies history of CML although this is potentially a possibility. (9) Hypertension: Continue home medication Monitor for improvement Note the patient has had a consideration or diagnosis of PRES in the past (10) Diabetes: Sliding scale insulin Consistent carb diet, clear liquids today. If tolerates consider increasing to full liquids. Plan Other medical problems as outlined by past medical history Full code SCDs for DVT prophylaxis. Okay to initiate heparin as hemoglobin and hematomas are stable. Attestations Medical Necessity Statement*: Needs continued hospitalization for treatment of cystitis/diverticulitis with need to initiate feedings and establish the tolerance to prevent readmission from dehydration as well as obtain records regarding her previous white blood cell count as well as oncology notes. Diagnoses Acute diverticulitis K57.92 UTI (urinary tract infection) N39.0 Acute encephalopathy G93.40 Syncope R55 Chronic kidney disease N18.9 Abnormal EKG R94.31 Hematoma T14.8XXA Thrombocytosis D75.839 Hypertension I10 Diabetes E11.9 Time Spent (min) 24
--- NOTE | 2023-09-24 10:33 | US_ITS ---
WS: [id number] RIGHT UPPER QUADRANT ULTRASOUND HISTORY: pain, abnormal CT COMPARISON: 09/23/2023 CT Liver: 17.4 cm in length. Normal size liver and echogenicity. No bile duct dilatation or mass. Portal Vein: Normal hepatopetal flow with monophasic waveform. Gallbladder: Gallbladder is very minimally hydropic. There is no wall thickening or increased vascula rity. Previously described stones are not evident by the ultrasound evaluation. I do believe there ar e small dependent stones. CBD: 0.7 cm Pancreas: Obscured. Right kidney: 10.7 cm in length. Normal size kidney. Increased echogenicity throughout the renal pare nchyma. There are several cysts in the RIGHT kidney which were identified by CT also. These are not a s well visualized by ultrasound due to patient's body habitus. No obstruction. Aorta and IVC: Unremarkable abdominal aorta and IVC. No ascites. US/US gall bladder [id number] IMPRESSION: 1. Very slightly hydropic gallbladder with no wall thickening or pericholecyst ic fluid. Although the stones are not identified by ultrasound I do believe the re are stones present as previously indicated by CT. No additional evidence for acute cholecystitis. 2. No bile duct dilatation. 3. Poorly visualized RIGHT kidney does appear to demonstrate chronic medical r enal disease with a few cysts.
[2023-09-24 10:49] LABS: Glucose Point of Care 211 mg/dL (70-110)
[2023-09-24] MEDS: oxyCODONE 5 mg IR Tab/Cap PO ×2 (12:49→23:08)
[2023-09-24] MEDS: ondansetron 2 mg/ML SDV 2 mL 4 MG IVP ×2 (12:51→23:10)
[2023-09-24 16:38] LABS: Glucose Point of Care 221 mg/dL (70-110)
--- NOTE | 2023-09-24 19:03 | ECG_ITS ---
[facility] Test Date: 2023-09-24 Pat Name: Katy Noble Department: Room: 256 Gender: Female Nude Model: : 1945 Requested By: Eliseo Guillen Order Number: [id number] Jackson MD: Shakir Vargas M.D. Measurements Intervals [place] Rate: 85 P: 53 SC: 172 QRS: -46 QRSD: 127 T: 69 QT: 389 QTc: 463 Interpretive Statements SINUS RHYTHM POSSIBLE LEFT ATRIAL ENLARGEMENT [-0.1mV P-WAVE IN V1/V2] LEFT AXIS DEVIATION [QRS AXIS < -30] POSSIBLE LEFT VENTRICULAR HYPERTROPHY [VOLTAGE CRITERIA PLUS LAE OR QRS WIDENING] Compared to ECG 09/21/2023 17:52:15 Intraventricular conduction delay no longer present Myocardial infarct finding no longer present Electronically Signed On 09-25-2023 13:09:28 CDT by Shakir Vargas M.D. [email or web address]
[2023-09-24] MEDS: gabapentin 300 mg Capsule PO (20:05)
[2023-09-24 21:02] LABS: Glucose Point of Care 142 mg/dL (70-110)
[2023-09-25] VITALS (11 sets, daily range): BP systolic 152–188; BP diastolic 66–86; PULSE 74–103; RESP 16–18; TEMP 36.6–36.8; O2SAT 90–97
[2023-09-25] MEDS: sodium chloride 0.9% 1,000 ML 125 ML IV (02:20)
[2023-09-25] MEDS: HYDROmorphone 1 mg/mL INJ 1 mL IVP (02:49)
[2023-09-25] MEDS: hyDRALAzine 20 mg/mL INJ 1 mL 10 MG IVP (04:15)
[2023-09-25 05:35] LABS: Basophils # 0.2 10^3/uL (0.0-0.1); Basophils % 0.6 %; Eosinophils # 0.6 10^3/uL (0.0-0.8); Eosinophils % 2.2 %; Hematocrit 38.7 % (36-47); Lymphocytes # 0.9 10^3/uL (0.8-4.8); Lymphocytes % 3.1 %; Mean Corpuscular HGB Conc 28.7 g/dL (30-55); Mean Corpuscular Hemoglobin 19.6 pg (27-33); Mean Corpuscular Volume 68.4 fl (85-98); Mean Platelet Volume 9.5 fL (7.4-10.4); Monocytes # 1.6 10^3/uL (0.2-0.9); Monocytes % 5.7 %; Neutrophils # 23.46 10^3/uL (1.8-7.7); Nucleated Red Blood Cells % 0.1 %; Platelet Count 818 10^3/cmm (157-399); Red Blood Count 5.66 10^6/uL (3.85-5.65); Red Cell Distribution Width 23.5 % (12.1-15.1); White Blood Count 27.59 10^3/uL (3.29-11.43)
[2023-09-25 05:56] LABS: Alanine Aminotransferase 8 U/L (0-33); Alkaline Phosphatase 152 U/L (35-105); Anion Gap 12.5 (5-19); Aspartate Amino Transferase 16 U/L (0-32); Blood Urea Nitrogen 26 mg/dL (8-23); Calcium 8.7 mg/dL (8.5-10.5); Carbon Dioxide 22 mmol/L (22-29); Chloride 102 mmol/L (98-107); Creatinine Clr Calc Pharmacy 37.7075; Globulin 2.8 g/dL (1.3-4.6); Glucose 169 mg/dL (65-115); Osmolality Calculated 285 mOsm/kg (285-295); Potassium 3.5 mmol/L (3.5-5.1); Sodium 133 mmol/L (136-145); Total Bilirubin 0.3 mg/dL (0.15-1.2); Total Protein 5.8 g/dL (6.6-8.7)
[2023-09-25] MEDS: meropenem 1,000 MG in sodium chloride 0.9% (plus) 50 ML 100 MG IV (06:13)
[2023-09-25] MEDS: oxyCODONE 5 mg IR Tab/Cap PO (06:17)
[2023-09-25 06:29] LABS: Glucose Point of Care 179 mg/dL (70-110)
[2023-09-25] MEDS: famotidine 20 mg Tablet PO (08:39)
[2023-09-25] MEDS: heparin 5,000 unit/mL INJ 1 mL 5000 UNIT SUBCUT (08:39)
[2023-09-25] MEDS: sertraline 100 mg Tablet PO (08:39)
[2023-09-25] MEDS: metoprolol tartrate 25 mg Tablet PO (08:39)
[2023-09-25] MEDS: atorvastatin 40 mg Tablet 20 MG PO (08:39)
[2023-09-25] MEDS: aspirin 81 mg EC Tablet PO (08:39)
[2023-09-25] MEDS: hyDRALAzine 25 mg Tablet 75 MG PO (08:39)
[2023-09-25] MEDS: amlodipine 10 mg Tablet PO (08:39)
[2023-09-25] MEDS: insulin lispro 100 unit/1 mL SUBCUT ×2 (08:39→12:49)
[2023-09-25] MEDS: hydroxyurea 500 mg Capsule PO (08:47)
[2023-09-25 11:25] LABS: Glucose Point of Care 213 mg/dL (70-110)
[2023-09-25 12:14] LABS: Leukemia Profile (BBPL) See Report
--- NOTE | 2023-09-25 13:06 | P.DS_ITS ---
Discharge Providers Date of Admission: 09/21/23 13:34 Date of Discharge: September 25, 2023 Attending Provider at Admission: Eliseo Aguirre MD Attending Provider at Discharge: Yina Simpson MD Consults: None Primary Care Provider: Daniel Mae Diagnoses at Discharge Discharge Diagnosis (1) Acute diverticulitis: Status: Acute (2) UTI (urinary tract infection): Status: Acute (3) Acute encephalopathy: Status: Resolved (4) Syncope: Status: Resolved (5) Chronic kidney disease: Status: Acute (6) Hematoma: Status: Acute (7) Thrombocytosis: Status: Acute (8) Hypertension: Status: Acute (9) Diabetes: Status: Acute Reason for Visit Reason for Visit: fall, dizziness Brief History: Please refer to the H&P for full details of HPI. Patient presented with fall after syncopal episode. She was diagnosed with acute diverticulitis and UTI. Hospital Course Hospital Course Acute diverticulitis She has improved clinically. She is tolerating a full liquid diet. Discharged on ciprofloxacin and metronidazole. Patient had a colonoscopy recently. E. coli UTI Sensitive to ciprofloxacin. Acute encephalopathy Present on admission has resolved. Syncope Etiology of this is unclear. No significant arrhythmia on telemetry. She had an echocardiogram done on 09/20 which showed normal LV size and systolic function. LVEF 78%. Mild to moderate LVH with no regional wall abnormalities. Diastolic dysfunction present with normal to mildly elevated filling pressures. Fall Hematoma She has a hematoma on her right neck and right back from her fall. CT thoracic and lumbar spine did not show any significant findings. CKD stage III Creatinine has been stable. Baseline creatinine 1.2 1.4 mg/dL. Hypertension Blood pressure has been stable. Type 2 diabetes mellitus Continue to monitor glucose at home. Leukocytosis and thrombocytosis Likely has myeloproliferative disease. She follows with hematology/oncology. Continue hydroxyurea. Physical Exam Const: COMMON NORMALS: no acute distress and patient oriented x3 HENMT: COMMON NORMALS: normocephalic and atraumatic HEAD & SCALP: normocephalic and atraumatic Eye: COMMON NORMALS: Equal, round and reactive pupils present and EOMs intact bilaterally PUPIL: Yes Equal, round and reactive pupils present Neck/C-Spine: COMMON NORMALS: supple and no JVD Chest: COMMONS NORMALS: normal inspection of the chest Resp: COMMON NORMALS: normal respiratory effort and clear to auscultation bilaterally AUSCULTATION: clear to auscultation bilaterally Cardio: COMMON NORMALS: no JVD, regular rate, regular rhythm, S1 normal heart sound present and S2 normal heart sound present RATE: regular rate RHYTHM: regular rhythm HEART SOUNDS: S1 normal heart sound present and S2 normal heart sound present GI: COMMON NORMALS: Normal to inspection, nondistended, normoactive bowel sounds present, Soft to palpation and non-tender PALPATION: Yes Soft to palpation Extremity: COMMON NORMALS: no pedal edema Neuro: COMMON NORMALS: patient oriented x3 and no focal motor deficits Skin: COMMON NORMALS: no rashes or lesions noted GENERAL SKIN EXAM: no rashes or lesions noted Discharge Data Studies Completed and Pending Completed Studies During Hospitalization Category Date Time Status CT abdomen pelvis w con* [id number] Urgent Cat Scan 09/23/23 14:[address] cervical spin wo con* [id number] Stat Cat Scan 09/21/23 08:[address] head wo con* [id number] Stat Cat Scan 09/21/23 08:[address] kidney stone [id number] Stat Cat Scan 09/21/23 08:[address] thoracic spin wo con* [id number] Stat Cat Scan 09/21/23 12:16 Completed XR chest 1V portable [id number] Stat Exams 09/21/23 08:02 Completed XR foot RT min 3V* [id number] Stat Exams 09/21/23 08:05 Completed XR lumbar spine 2-3V* [id number] Stat Exams 09/21/23 08:13 Completed CV. echo complete* [id number] Routine Ultrasound 09/21/23 14:22 Completed US gall bladder [id number] Routine Ultrasound 09/24/23 10:33 Completed Pending at discharge Category Date Time Status Blood Culture Stat Lab 09/21/23 08:41 Results SPEP [Total Protein Electrophoresis] Routine Lab 09/22/23 04:44 Received Urine Protein Electrop Random Routine Lab 09/22/23 07:36 Received Radiology Impressions Cervical Spine CT 09/21/23 08:00 IMPRESSION: 1. No acute fracture or traumatic listhesis. 2. Overall straightening of the natural cervical lordosis may be positional, possibly related to muscle spasm. 3. Multinodular thyroid. Recommend nonemergent thyroid ultrasound. COMMENTS: Consistent with the [employer]'s Incidental Findings Committee white paper (J Am Estrella Radiol 2015): In patients aged 35 years and older with an incidental thyroid nodule equal to or greater than 1.[address], MRI or extrathyroidal US, further evaluation with dedicated thyroid US is recommended for patients with normal life expectancy and without comorbidities. For smaller nodules without suspicious features, no further evaluation or follow up is recommended. Head CT 09/21/23 08:00 IMPRESSION: No acute intracranial findings. Chest X-Ray 09/21/23 08:02 IMPRESSION: 1. Poor inspiration. Low lung volumes. 2. No pneumonia. 3. Mild cardiomegaly. Atherosclerotic aorta. Foot X-Ray 09/21/23 08:05 IMPRESSION: Severe chronic Charcot neuropathy. Similar to 01/29/2022. No acute fractures. Mild soft tissue edema. Lumbar Spine X-Ray 09/21/23 08:13 IMPRESSION: 1. No distinct acute osseous fractures. 2. Chronic and postsurgical changes as above. Lumbar Spine CT 09/21/23 12:16 IMPRESSION: 1. No paraspinal hematoma. 2. There is a very tiny fluid collection which may be pleural fluid along the RIGHT diaphragmatic pleural pleura at the T12 level. This is separate from the paraspinal fat. 3. Multilevel central and foraminal stenosis throughout the lumbar spine with advanced scoliosis. Stenosis due to combination of scoliosis, osteophytes and facet disease. 4. L2-3: Moderate to severe LEFT subarticular recess and mild LEFT foraminal stenosis. 5. L3-4: Moderate to severe central with bilateral subarticular recess stenosis. 6. L4-5: Severe RIGHT foraminal stenosis. Thoracic Spine CT 09/21/23 12:16 IMPRESSION: No evidence of acute process. Clinical scenario should determine the need for MRI. Abdomen/Pelvis CT 09/23/23 14:18 IMPRESSION: 1. Questionable cystitis. Correlation with urinalysis is recommended. Otherwise no evidence of acute abnormality in the abdomen or pelvis. 2. Severe L3-L4 central stenosis with likely cauda equina nerve root impingement. 3. Moderate-severe narrowing of the proximal SMA. Consider follow-up outpatient vascular evaluation. 4. Cholelithiasis with gallbladder distension raising the question of symptomatic cholelithiasis. Gallbladder Ultrasound 09/24/23 10:33 IMPRESSION: 1. Very slightly hydropic gallbladder with no wall thickening or pericholecystic fluid. Although the stones are not identified by ultrasound I do believe there are stones present as previously indicated by CT. No additional evidence for acute cholecystitis. 2. No bile duct dilatation. 3. Poorly visualized RIGHT kidney does appear to demonstrate chronic medical renal disease with a few cysts. Laboratory Results WBC 27.59 10^3/uL (3.29-11.43) H 09/25/23 04:42 RBC 5.66 10^6/uL (3.85-5.65) H 09/25/23 04:42 Hgb 11.10 g/dL (11.27-16.99) L 09/25/23 04:42 Hct 38.7 % (36-47) 09/25/23 04:42 MCV 68.4 fl (85-98) L 09/25/23 04:42 MCH 19.6 pg (27-33) L 09/25/23 04:42 MCHC 28.7 g/dL (30-55) L 09/25/23 04:42 RDW 23.5 % (12.1-15.1) H 09/25/23 04:42 Plt Count 818 10^3/cmm (157-399) H 09/25/23 04:42 MPV 9.5 fL (7.4-10.4) 09/25/23 04:42 Neut % (Auto) 85.0 % 09/25/23 04:42 Lymph % (Auto) 3.1 % 09/25/23 04:42 [place] % (Auto) 5.7 % 09/25/23 04:42 Eos % (Auto) 2.2 % 09/25/23 04:42 Baso % (Auto) 0.6 % 09/25/23 04:42 Neut # (Auto) 23.46 10^3/uL (1.8-7.7) H 09/25/23 04:42 Lymph # (Auto) 0.9 10^3/uL (0.8-4.8) 09/25/23 04:42 [place] # (Auto) 1.6 10^3/uL (0.2-0.9) H 09/25/23 04:42 Eos # (Auto) 0.6 10^3/uL (0.0-0.8) 09/25/23 04:42 Baso # (Auto) 0.2 10^3/uL (0.0-0.1) H 09/25/23 04:42 Nucleated RBC % (auto) 0.1 % 09/25/23 04:42 Total Counted 100 (0-100) 09/23/23 05:09 Atypical Lymphs % Not Reportable 09/23/23 05:09 Segmented Neutrophils 89 % 09/23/23 05:09 Abs Segm Neuts (Man) 27.2 10/cmm (1.6-7.1) H 09/23/23 05:09 Band Neutrophils Not Reportable 09/23/23 05:09 Lymphocytes (Manual) 4 % 09/23/23 05:09 Monocytes (Manual) 6.0 % 09/23/23 05:09 Absolute Monocytes 1.8 10^3/cmm (0.1-0.6) H 09/23/23 05:09 Eosinophils (Manual) 0 % 09/23/23 05:09 Absolute Eosinophils 0.0 10^3/cmm (0.0-0.7) 09/23/23 05:09 Basophils (Manual) 0.0 % 09/23/23 05:09 Absolute Basophils 0.0 10^3/cmm (0.0-0.2) 09/23/23 05:09 Myelocytes 2.0 % 09/23/23 05:09 Nucleated RBCs # 0.0 /100WBC 09/25/23 04:42 Hypersegmented Polys 2+ 09/23/23 05:09 Platelet Estimate Increased (Normal) H 09/23/23 05:09 Giant Platelets Trace 09/23/23 05:09 Peripher Smr Path Cons Sent for review 09/24/23 04:42 Sodium 133 mmol/L (136-145) L 09/25/23 04:42 Potassium 3.5 mmol/L (3.5-5.1) 09/25/23 04:42 Chloride 102 mmol/L (98-107) 09/25/23 04:42 Carbon Dioxide 22 mmol/L (22-29) 09/25/23 04:42 Anion Gap 12.5 (5-19) 09/25/23 04:42 BUN 26 mg/dL (8-23) H 09/25/23 04:42 Creatinine 1.2 mg/dL (0.5-0.9) H 09/25/23 04:42 GFR Calculation Not Reportable 09/25/23 04:42 Glucose 169 mg/dL (65-115) H 09/25/23 04:42 POC Glucose 213 mg/dL (70-110) H 09/25/23 11:07 Calculated Osmolality 285 mOsm/kg (285-295) 09/25/23 04:42 Lactic Acid 0.6 mmol/L (0.5-2.2) 09/21/23 08:35 Lactate 0.7 mmol/L (0.5-2.2) 09/23/23 22:00 Calcium 8.7 mg/dL (8.5-10.5) 09/25/23 04:42 Magnesium 1.9 mg/dL (1.7-2.3) 09/22/23 04:44 Total Bilirubin 0.3 mg/dL (0.15-1.2) 09/25/23 04:42 AST 16 U/L (0-32) 09/25/23 04:42 ALT 8 U/L (0-33) 09/25/23 04:42 Alkaline Phosphatase 152 U/L (35-105) H 09/25/23 04:42 Lactate Dehydrogenase 215 U/L (135-214) H 09/22/23 04:44 Troponin T Baseline 17 ng/L (0-10) H 09/21/23 12:38 Troponin T 120 Minute 18.47 ng/L (0-10) H 09/21/23 14:48 Delta Troponin T 1.47 ABS# (0-10) 09/21/23 14:48 Troponin T Hi Sens 6Hr 18.74 ng/L (0-10) H 09/21/23 19:37 Troponin T Hi Sens 6Hr Delta 1.74 ng/L (0-12) 09/21/23 19:37 Total Protein 5.8 g/dL (6.6-8.7) L 09/25/23 04:42 Albumin 3.0 g/dL (3.5-5.2) L 09/25/23 04:42 Globulin 2.8 g/dL (1.3-4.6) 09/25/23 04:42 TSH 1.37 uIU/mL (0.27-4.20) 09/21/23 06:58 Urine Color Yellow (Yellow) 09/21/23 10:17 Urine Appearance Slightly cloudy (CLEAR) A 09/21/23 10:17 Urine pH 7 (5-7) 09/21/23 10:17 Ur Specific Lewis 1.010 (1.005-1.030) 09/21/23 10:17 Urine Protein 3+ (Negative) H 09/21/23 10:17 Urine Glucose (UA) Norm (Normal) 09/21/23 10:17 Urine Ketones Negative (Negative) 09/21/23 10:17 Urine Blood Neg (Negative) 09/21/23 10:17 Urine Nitrate Negative (Negative) 09/21/23 10:17 Urine Bilirubin Neg (Negative) 09/21/23 10:17 Urine Urobilinogen Neg mg/dL (Negative) 09/21/23 10:17 Ur Leukocyte Esterase Negative (Negative) 09/21/23 10:17 Urine RBC 0-4 /hpf (0-2) H 09/21/23 10:17 Urine WBC 5-10 /hpf (0-5) H 09/21/23 10:17 Ur Squamous Epith Cells 0-4 /hpf (0-5) H 09/21/23 10:17 Amorphous Sediment Not Reportable 09/21/23 10:17 Urine Bacteria 3+ /hpf (NONE) H 09/21/23 10:17 Immunophenotype Interp See report 09/24/23 04:42 Vitals Last Vital Signs Temp 97.8 F 09/25/23 11:53 Pulse 78 09/25/23 11:53 Resp 17 09/25/23 11:53 BP 152/72 09/25/23 11:53 Pulse Ox 94 09/25/23 11:53 O2 Del Method Room Air 09/25/23 11:53 O2 Flow Rate 2 09/25/23 09:04 FiO2 2 09/25/23 07:38 Discharge Plan Discharge Patient Disposition: Home Condition: Stable Prescriptions: New hydralazine 25 mg Tablet 75 mg PO TID Qty: 90 0RF ciprofloxacin HCl 500 mg tablet 500 mg PO BID Qty: 14 0RF metronidazole 500 mg tablet 500 mg PO TID Qty: 21 0RF Continued (DME) ONEIDA BOOT to RIGHT See Rx Instructions .Route .MEDSUPPLY Qty: 1 0RF Rx Instructions: As directed by [employer] (DME) Short CAM Boot to the Left Medium See Rx Instructions .Route .MEDSUPPLY Qty: 1 0RF Rx Instructions: As directed insulin degludec [Tresiba FlexTouch U-200] 200 unit/mL (3 mL) insulin pen 25 unit SUBCUT QAM amlodipine 10 mg tablet 10 mg PO DAILY Qty: 30 0RF cyanocobalamin (vitamin B-12) [Vitamin B-12] 2,500 mcg Tablet, Sublingual 2,500 mcg SUBLINGUAL DAILY acetaminophen 500 mg Tablet 500 mg PO Q6H PRN (Reason: pain) famotidine [Pepcid] 20 mg Tablet 20 mg PO BID gabapentin 300 mg Capsule 300 mg PO BEDTIME hydroxyurea 500 mg capsule 500 mg PO EVERY OTHER DAY atorvastatin 20 mg tablet 20 mg PO DAILY aspirin 81 mg tablet,delayed release (DR/EC) 81 mg PO DAILY Qty: 90 0RF ergocalciferol (vitamin D2) [Vitamin D2] 1,250 mcg (50,000 unit) Capsule 1,250 mcg PO DAILY ondansetron 4 mg tablet,disintegrating 4 mg PO DAILY PRN (Reason: Nausea) calcitriol 0.25 mcg Capsule 0.25 mcg PO DAILY loperamide [Imodium A-D] 2 mg capsule 2 mg PO Q6H PRN (Reason: loose stool) Qty: 10 0RF sertraline 100 mg tablet 100 mg PO DAILY metoprolol tartrate 25 mg tablet 25 mg PO BID nitroglycerin 0.4 mg tablet, sublingual See Rx Instructions .ROUTE .COMPLEX Rx Instructions: PLACE ONE TABLED UNDER TONGUE EVERY 5 MINUTES NEEDED FOR CHEST PAIN lisinopril 5 mg tablet 5 mg PO DAILY Discontinued hydralazine 25 mg tablet 50 mg PO TID carvedilol 12.5 mg tablet 25 mg PO BID Discharge Orders: Discharge Order (Routine); Ordered 09/25/23 Ordered By: Yina Simpson Referrals: Daniel Mae [Primary Care Provider] - 09/29/23 11:20 am Discharge Diet: Full LIquid Discharge Activity: Resume usual activity Patient Instructions: Ciprofloxacin (By mouth), Metronidazole (By mouth), Hydralazine (By mouth), Diverticulitis (DC), Opioid Safety Activity Restrictions/Additional Instructions: Continue full liquid for 1 week. Follow up with hematology/oncology as previously scheduled. Discharge Attestations Time Spent in Discharge Care*: greater than 30 min Status at Discharge: Cognitive status at discharge: cognitively intact , B ehavioral status at discharge: cooperative , Quality Metrics Clinical Quality Measures [ No reported AMI, CVA or VTE this stay] Coding Level of Care Code 43058 Diagnoses Acute diverticulitis K57.92 UTI (urinary tract infection) N39.0 Acute encephalopathy G93.40 Syncope R55 Chronic kidney disease N18.9 Hematoma T14.8XXA Thrombocytosis D75.839 Hypertension I10 Diabetes E11.9
[2023-09-25 17:45] LABS: Creatinine, Random Urine 73 mg/dL (20-275); Protein, Total, Random 542 mg/dL (5-24); Protein/Creatinine Ratio 7.425 (0.024-0.184); Protein/Creatinine Ratio 7425 mg/g creat (24-184)
[2023-09-26 02:59] LABS: PROTEIN, TOTAL 6.2 g/dL (6.1-8.1)
[2023-09-29 14:41] LABS: ALBUMIN 3.2 g/dL (3.8-4.8); ALPHA 1 GLOBULIN 0.4 g/dL (0.2-0.3); ALPHA 2 GLOBULIN 0.8 g/dL (0.5-0.9); BETA 1 GLOBULIN 0.4 g/dL (0.4-0.6); BETA 2 GLOBULIN 0.4 g/dL (0.2-0.5)
[2023-10-04 10:29] LABS: Albumin,Urine Random 81 %; Alpha-1-Globulins Urine Random 2 %; Alpha-2-Globulins Urine Random 3 %; Beta-Globulin,Urine Random 8 %; Gamma Globulin,Urine Random 6 %
== END 2023-09-25 15:20 | disposition home or self-care (01) | DRG 392 ==
LOC: ER 12:55 → MEDSURG 13:34
PROVIDERS: Internal Medicine; Admitting Provider Internal Medicine; Emergency Provider Family Medicine; PCP Family Medicine; Visit Provider Student in an Organized Health Care Education/Training Program
DX: K57.92 Diverticulitis of intestine, part unspecified, without perforation or abscess without bleeding (principal); N39.0 Urinary tract infection, site not specified; G93.40 Encephalopathy, unspecified; B96.20 Unspecified Escherichia coli [E. coli] as the cause of diseases classified elsewhere; R55 Syncope and collapse; N18.30 Chronic kidney disease, stage 3 unspecified; S10.93XA Contusion of unspecified part of neck, initial encounter; S20.221A Contusion of right back wall of thorax, initial encounter; W17.89XA Other fall from one level to another, initial encounter; D75.839 Thrombocytosis, unspecified; I12.9 Hypertensive chronic kidney disease with stage 1 through stage 4 chronic kidney disease, or unspecified chronic kidney disease; E11.22 Type 2 diabetes mellitus with diabetic chronic kidney disease; Z79.4 Long term (current) use of insulin; K80.20 Calculus of gallbladder without cholecystitis without obstruction; R94.31 Abnormal electrocardiogram [ECG] [EKG]; M48.061 Spinal stenosis, lumbar region without neurogenic claudication; Z86.73 Personal history of transient ischemic attack (TIA), and cerebral infarction without residual deficits; Z79.82 Long term (current) use of aspirin; F32.A Depression, unspecified
CPT/HCPCS: 36415; 36416; 51798; 70450; 71045; 72100; 72125; 72128; 73630; 74176; 74177; 76705; 80053; 81001; 82570; 82962; 83605; 83615; 83735; 84155; 84156; 84165; 84166; 84443; 84484; 85007; 85025; 87040; 87077; 87086; 87186; 88184; 88185; 93005; 93306; 96365; 96367; 96372; 96375; 96376; 97161; 99285; J0360; J0744; J1170; J1200; J1644; J1815; J2185; J2270; J2405; J2765; J3490; J7030; J8999; Q9967

== ENCOUNTER 2023-10-10 05:06 | Inpatient (IN) | payer MEDICARE, SELFPAY ==
[2023-10-10] VITALS (14 sets, daily range): BP systolic 109–203; BP diastolic 72–111; PULSE 75–104; RESP 16–20; TEMP 36.4–36.9; O2SAT 91–95
--- NOTE | 2023-10-10 05:07 | XRR_ITS ---
PROCEDURE INFORMATION: Exam: XR Chest Exam date and time: 10/10/2023 5:37 AM Age: 77 years old Clinical indication: Patient HX: EMS arrival for possible CVA. TECHNIQUE: Imaging protocol: Radiologic exam of the chest. Views: 1 view. COMPARISON: CR XR chest 1V portable [id number] 09/21/2023 8:10 AM FINDINGS: Lungs: Linear opacity left lung base likely relate to atelectasis or scar tissue Pleural spaces: Unremarkable. No pleural effusion. No pneumothorax. Heart/Mediastinum: Cardiomegaly. Bones/joints: Unremarkable. Other findings: Mild congestion. XR/XR chest 1V portable [id number] IMPRESSION: 1. Cardiomegaly with mild congestion. 2. Linear opacity left lung base likely related to atelectasis or scar tissue
--- NOTE | 2023-10-10 05:07 | CTR_ITS ---
PROCEDURE INFORMATION: Exam: CTA Head With Contrast, Arteriography Exam date and time: 10/10/2023 5:13 AM Age: 77 years old Clinical indication: Stroke-like symptoms; Speech disturbance and visual disturbance; Additional info: CVA TECHNIQUE: Imaging protocol: Computed tomographic angiography of the head with contrast. Exam focused on the arteries. 3D rendering (Not supervised by radiologist): MIP and/or 3D reconstructed images were created by the technologist. Radiation optimization: All CT scans at this facility use at least one of these dose optimization techniques: automated exposure control; mA and/or kV adjustment per patient size (includes targeted exams where dose is matched to clinical indication); or iterative reconstruction. Contrast material: OMNI 350; Contrast volume: 100 ml; Contrast route: INTRAVENOUS (IV); COMPARISON: CT angio headneck* [id number] 09/20/2021 2:05 PM RADIATION DOSE METRICS: Total DLP (mGy-cm): 360.77 FINDINGS: ANTERIOR CIRCULATION: Right internal carotid artery: Atherosclerotic plaque of the cavernous segment of the right internal carotid artery. This produces moderate to high-grade stenosis. Right middle cerebral artery: No occlusion or significant stenosis. No aneurysm. Right anterior cerebral artery: No occlusion or significant stenosis. No aneurysm. Left internal carotid artery: Atherosclerotic plaque of the cavernous segment of the left internal carotid artery. This produces moderate to high-grade stenosis. Left middle cerebral artery: No occlusion or significant stenosis. No aneurysm. Left anterior cerebral artery: No occlusion or significant stenosis. No aneurysm. POSTERIOR CIRCULATION: Right vertebral artery: No occlusion or significant stenosis. No aneurysm. Left vertebral artery: No occlusion or significant stenosis. No aneurysm. Basilar artery: No occlusion or significant stenosis. No aneurysm. Right posterior cerebral artery: No occlusion or significant stenosis. No aneurysm. Left posterior cerebral artery: No occlusion or significant stenosis. No aneurysm. Brain: No definite mass, mass effect, or midline shift. Cerebral ventricles: No ventriculomegaly. Bones/joints: Unremarkable. No acute fracture. Soft tissues: Unremarkable. PROCEDURE INFORMATION: Exam: CTA Neck With Contrast Exam date and time: 10/10/2023 5:13 AM Age: 77 years old Clinical indication: Stroke-like symptoms; Speech disturbance and visual disturbance; Additional info: CVA TECHNIQUE: Imaging protocol: Computed tomographic angiography of the neck with contrast. Exam focused on the cervical segments of the vasculature. 3D rendering (Not supervised by radiologist): MIP and/or 3D reconstructed images were created by the technologist. Radiation optimization: All CT scans at this facility use at least one of these dose optimization techniques: automated exposure control; mA and/or kV adjustment per patient size (includes targeted exams where dose is matched to clinical indication); or iterative reconstruction. Contrast material: OMNI 350; Contrast volume: 100 ml; Contrast route: INTRAVENOUS (IV); COMPARISON: CT angio headneck* [id number] 09/20/2021 2:05 PM RADIATION DOSE METRICS: Total DLP (mGy-cm): 360.77 FINDINGS: Right common carotid artery: No stenosis. No dissection or occlusion. Right internal carotid artery: Moderate to severe stenosis of the proximal right internal carotid artery. Right external carotid artery: No occlusion or stenosis of the origin. Left common carotid artery: No stenosis. No dissection or occlusion. Left internal carotid artery: Moderate to severe stenosis of the proximal left internal carotid artery. Left external carotid artery: No occlusion or stenosis of the origin. Right vertebral artery: No stenosis. No dissection or occlusion. Left vertebral artery: No stenosis. No dissection or occlusion. Soft tissues: Normal. No significant soft tissue swelling. Bones/joints: No acute fracture. Other findings: Atherosclerotic plaque carotid bifurcations there is moderate to severe vascular narrowing. CT/CT angio headne* [id number] IMPRESSION: Atherosclerotic plaque of the cavernous segments of the internal carotid arteries produces moderate to severe vascular narrowing. IMPRESSION: Atherosclerotic plaque of the carotid bifurcations and proximal internal carotid arteries produces moderate to severe vascular narrowing. REFERENCES: NASCET CRITERIA. The degree of stenosis in the cervical segment of the internal carotid artery is based on NASCET criteria. Normal is no stenosis. Mild is less than 50% stenosis. Moderate is 50-69% stenosis. Severe is 70% to 99% stenosis. Total occlusion is no detectable patent lumen.
--- NOTE | 2023-10-10 05:07 | CTR_ITS ---
PROCEDURE INFORMATION: Exam: CT Head Without Contrast Exam date and time: 10/10/2023 5:09 AM Age: 77 years old Clinical indication: Stroke-like symptoms; Speech disturbance and visual disturbance; Additional info: EMS arrival for possible CVA. EMS reports unequal pupils with dysphasia. Upon exam patient acting erratic and keeps repeating ouch. reported history of prior CVA. TECHNIQUE: Imaging protocol: Computed tomography of the head without contrast. Radiation optimization: All CT scans at this facility use at least one of these dose optimization techniques: automated exposure control; mA and/or kV adjustment per patient size (includes targeted exams where dose is matched to clinical indication); or iterative reconstruction. Other technique: STROKE PROTOCOL was implemented. COMPARISON: CT head wo con* [id number] 09/21/2023 9:03 AM RADIATION DOSE METRICS: Total DLP (mGy-cm): 1598.73 FINDINGS: Brain: Normal. No hemorrhage. Periventricular white matter changes. No mass effect. Cerebral ventricles: No ventriculomegaly. Paranasal sinuses: Visualized sinuses are unremarkable. No fluid levels. Mastoid air cells: Visualized mastoid air cells are well aerated. Bones: Unremarkable. No acute fracture. Soft tissues: Unremarkable. CT/CT head thrombolytic [id number] IMPRESSION: No acute intracranial abnormality. ASSESSMENT: ASPECTS ([place] Stroke Program Early CT Score) is 10.
--- NOTE | 2023-10-10 05:28 | ED_ITS ---
Documented by User: Davi Garcia MD 10/10/23 05:40 HPI - Neuro Symptoms/Deficit 2 General: Chief Complaint: Neuro Symptoms/Deficit Stated Complaint: AMS Time Seen by Provider: 10/10/23 05:07 Source: EMS Mode of arrival: EMS Limitations: altered mental status History of Present Illness: 77-year-old female presents here from [facility] by EMS for altered mental status per EMS states that around 230 tonight she started becoming more altered she had been complaining of some back pain as well. Patient here will follow commands she is moving all extremities she is unable to answer any questions or really formulate sentences. No known fevers or injuries. Patient had been admitted to the hospital here a few weeks ago for UTI and some confusion at that time. Review of Systems 2 General: Reports: ROS unobtainable due to mental status PFSH ED 2 PFSH: Medical History Depression GERD (gastroesophageal reflux disease) Thrombocytosis Diabetic peripheral neuropathy associated with type 2 diabetes mellitus Carotid artery stenosis Carotid artery disease Acute CVA (cerebrovascular accident) UTI (urinary tract infection) Aphasia Acute kidney injury superimposed on chronic kidney disease Sepsis Aspiration pneumonitis Chronic kidney disease PUD (peptic ulcer disease) Hypertension Stroke Charcot foot due to diabetes mellitus Coronary artery disease Osteomyelitis Diabetes Diabetic foot ulcer History of hyperbaric oxygen therapy Acute cystitis Cerebrovascular accident Patient with ongoing aphasia Surgical History S/P PICC central line placement Patient had tunneled left subclavian central line for IV antibiotics for osteomyelitis which was removed by Dr. Zelaya 2016 S/P carotid endarterectomy Family History Other Family history non-contributory Social History Smoking and tobacco/nicotine status: never used tobacco/nicotine Alcohol intake: never Substance/Drug Use: never Household members: family Housing: House NIH stroke score 2 NIHSS: Level Of Consciousness - 1a: 0 Level Of Consciousness Questions - 1b: Both Correct Level Of Consciousness Commands - 1c: Neither Correct B est Gaze - 2: Normal Visual Landeros - 3: No Visual Loss Facial Palsy - 4: N ormal Motor Arm Right - 5: No Drift Motor Arm Left - 5: No Drift Motor Leg Right - 6: No Drift Motor Leg Left - 6: No Drift Limb Ataxia - 7: A bsent Sensory - 8: Normal Best Language - 9: Mild/Moderate Aphasia D ysarthia - 10: Mild/Moderate Dysarthia Extinction And Inattention - 11: 0 Score: Total Score: 4 Physical Exam 2 Const: COMMON NORMALS: alert; negative for patient oriented x3 ORIENTATION/CONSCIOUSNESS: not oriented to person, not oriented to place and not oriented to time HENMT: COMMON NORMALS: normocephalic and atraumatic HEAD & SCALP: n ormocephalic and atraumatic Eye: COMMON NORMALS: Equal, round and reactive pupils present and EOMs intact bilaterally PUPIL: Yes Equal, round and reactive pupils present Neck/C-Spine: COMMON NORMALS: full ROM and supple Chest: COMMONS NORMALS: normal inspection of the chest and normal palpation of entire chest wall Resp: COMMON NORMALS: normal respiratory effort, No retractions, No use of accessory muscles and clear to auscultation bilaterally AUSCULTATION: clear to auscultation bilaterally Cardio: COMMON NORMALS: regular rate, regular rhythm and No murmurs present (Cardio) RATE: regular rate RHYTHM: regular rhythm GI: COMMON NORMALS: Normal to inspection, nondistended, normoactive bowel sounds present, Soft to palpation, non-tender and no masses PALPATION: Yes Soft to palpation Extremity: COMMON NORMALS: normal to inspection and full ROM Neuro: COMMON NORMALS: moves all extremities; negative for patient oriented x3 SENSORIUM/ORIENTATION: Yes alert, No oriented to person, No oriented to place and No oriented to time CRANIAL NERVES: Yes CN normal except as noted SPEECH: abnormal speech MOTOR EXAM: 5/5 motor strength present throughout Psych: COMMON NORMALS: mental status grossly normal, Normal thought process present and cooperative THOUGHT PROCESS: Normal thought process present Skin: COMMON NORMALS: no rashes or lesions noted and no wounds GENERAL SKIN EXAM: no rashes or lesions noted Course 2 Reevaluation(s): Reevaluation #1: Patient seen by neurologist Dr. Muñoz in the ER states that patient is not a TNKase candidate at this time did recommend CTA head and neck which is pending. Time: 05:39 Vital Signs: Vital signs: Vital Signs Temperature 97.6 F 10/10/23 05:14 Pulse Rate 85 10/10/23 10:01 Respiratory Rate 16 10/10/23 09:53 Blood Pressure 198/97 10/10/23 10:01 Pulse Oximetry 94 10/10/23 10:01 Oxygen Delivery Me thod Room Air 10/10/23 10:01 MDM - Neuro Symptoms/Deficit Medical Records I reviewed the patient's medical records. Lab Data I reviewed the patient's lab results. 10/10/23 06:00 10/10/23 06:00 Radiology Impressions Chest X-Ray 10/10/23 05:07 IMPRESSION: 1. Cardiomegaly with mild congestion. 2. Linear opacity left lung base likely related to atelectasis or scar tissue Head CT 10/10/23 05:07 IMPRESSION: No acute intracranial abnormality. ASSESSMENT: ASPECTS ([place] Stroke Program Early CT Score) is 10. Head/Neck CTA 10/10/23 05:07 IMPRESSION: Atherosclerotic plaque of the cavernous segments of the internal carotid arteries produces moderate to severe vascular narrowing. IMPRESSION: Atherosclerotic plaque of the carotid bifurcations and proximal internal carotid arteries produces moderate to severe vascular narrowing. REFERENCES: NASCET CRITERIA. The degree of stenosis in the cervical segment of the internal carotid artery is based on NASCET criteria. Normal is no stenosis. Mild is less than 50% stenosis. Moderate is 50-69% stenosis. Severe is 70% to 99% stenosis. Total occlusion is no detectable patent lumen. Laboratory Results WBC 19.81 10^3/uL (3.29-11.43) H 10/10/23 06:00 RBC 6.56 10^6/uL (3.85-5.65) H 10/10/23 06:00 Hgb 12.60 g/dL (11.27-16.99) 10/10/23 06:00 Hct 44.7 % (36-47) 10/10/23 06:00 MCV 68.1 fl (85-98) L 10/10/23 06:00 MCH 19.2 pg (27-33) L 10/10/23 06:00 MCHC 28.2 g/dL (30-55) L 10/10/23 06:00 RDW 24.9 % (12.1-15.1) H 10/10/23 06:00 Plt Count 649 10^3/cmm (157-399) H 10/10/23 06:00 MPV 9.2 fL (7.4-10.4) 10/10/23 06:00 Neut % (Auto) 83.9 % 10/10/23 06:00 Lymph % (Auto) 4.4 % 10/10/23 06:00 Centre % (Auto) 4.9 % 10/10/23 06:00 Eos % (Auto) 2.3 % 10/10/23 06:00 Baso % (Auto) 0.7 % 10/10/23 06:00 Neut # (Auto) 16.61 10^3/uL (1.8-7.7) H 10/10/23 06:00 Lymph # (Auto) 0.9 10^3/uL (0.8-4.8) 10/10/23 06:00 Centre # (Auto) 1.0 10^3/uL (0.2-0.9) H 10/10/23 06:00 Eos # (Auto) 0.5 10^3/uL (0.0-0.8) 10/10/23 06:00 Baso # (Auto) 0.1 10^3/uL (0.0-0.1) 10/10/23 06:00 Nucleated RBC % (auto) 0 % 10/10/23 06:00 Nucleated RBCs # 0.0 /100WBC 10/10/23 06:00 PT 13.30 SECONDS (12.1-14.9) 10/10/23 06:00 INR 0.98 (0.8-1.2) 10/10/23 06:00 APTT 29.5 SECONDS (23.9-36.7) 10/10/23 06:00 Sodium 137 mmol/L (136-145) 10/10/23 06:00 Potassium 4.2 mmol/L (3.5-5.1) 10/10/23 06:00 Chloride 98 mmol/L (98-107) 10/10/23 06:00 Carbon Dioxide 28 mmol/L (22-29) 10/10/23 06:00 Anion Gap 15.2 (5-19) 10/10/23 06:00 BUN 21 mg/dL (8-23) 10/10/23 06:00 Creatinine 1.2 mg/dL (0.5-0.9) H 10/10/23 06:00 GFR Calculation Not Reportable 10/10/23 06:00 Glucose 118 mg/dL (65-115) H 10/10/23 06:00 POC Glucose 127 mg/dL (70-110) H 10/10/23 05:26 Calculated Osmolality 288 mOsm/kg (285-295) 10/10/23 06:00 Lactic Acid 0.7 mmol/L (0.5-2.2) 10/10/23 06:00 Calcium 9.3 mg/dL (8.5-10.5) 10/10/23 06:00 Total Bilirubin 0.4 mg/dL (0.15-1.2) 10/10/23 06:00 AST 19 U/L (0-32) 10/10/23 06:00 ALT 8 U/L (0-33) 10/10/23 06:00 Alkaline Phosphatase 126 U/L (35-105) H 10/10/23 06:00 Total Protein 7.0 g/dL (6.6-8.7) 10/10/23 06:00 Albumin 3.6 g/dL (3.5-5.2) 10/10/23 06:00 Globulin 3.4 g/dL (1.3-4.6) 10/10/23 06:00 Urine Color Yellow (Yellow) 10/10/23 05:56 Urine Appearance Clear (CLEAR) 10/10/23 05:56 Urine pH 7 (5-7) 10/10/23 05:56 Ur Specific [place] 1.015 (1.005-1.030) 10/10/23 05:56 Urine Protein 3+ (Negative) H 10/10/23 05:56 Urine Glucose (UA) Norm (Normal) 10/10/23 05:56 Urine Ketones Negative (Negative) 10/10/23 05:56 Urine Blood Neg (Negative) 10/10/23 05:56 Urine Nitrate Negative (Negative) 10/10/23 05:56 Urine Bilirubin Neg (Negative) 10/10/23 05:56 Urine Urobilinogen Neg mg/dL (Negative) 10/10/23 05:56 Ur Leukocyte Esterase Negative (Negative) 10/10/23 05:56 Urine RBC 0-4 /hpf (0-2) H 10/10/23 05:56 Urine WBC 5-10 /hpf (0-5) H 10/10/23 05:56 Ur Squamous Epith Cells 0-4 /hpf (0-5) H 10/10/23 05:56 Amorphous Sediment Trace /hpf 10/10/23 05:56 Urine Bacteria 1+ /hpf (NONE) H 10/10/23 05:56 Hyaline Casts 0-4 /lpf H 10/10/23 05:56 Urine Mucus 1+ /hpf 10/10/23 05:56 Urine Opiates Screen Negative ng/mL (Negative) 10/10/23 05:56 Ur Barbiturates Screen Negative ng/mL (Negative) 10/10/23 05:56 Ur Phencyclidine Scrn Negative ng/mL (Negative) 10/10/23 05:56 Ur Amphetamines Screen Negative ng/mL (Negative) 10/10/23 05:56 U Benzodiazepines Scrn Negative ng/mL (Negative) 10/10/23 05:56 Urine Cocaine Screen Negative ng/mL (Negative) 10/10/23 05:56 U Marijuana (THC) Screen Negative ng/mL (Negative) 10/10/23 05:56 No radiology studies performed this visit EKG Data EKG 1: I personally reviewed and interpreted this EKG as follows: EKG interpretation date: 10/10/23 EKG interpretation time: 05:34 Interpretation: nsr hr [address] elevation qrs 129 qtc 442 Discharge Plan Discharge Patient Disposition: Admitted As Inpatient Admit Provider: Mary Jaimes Clinical Impression: Chronic kidney disease, Leukocytosis, Charcot's joint, right ankle and foot, Altered mental state, Aphasia, Cystitis Condition: Stable Coding Level of Care Code ED Facility Maintenance Manager for Chg Fwd Documented by User: Jake Guerrero DO 10/10/23 10:40 HPI - Neuro Symptoms/Deficit 2 General: Chief Complaint: Neuro Symptoms/Deficit Stated Complaint: AMS Time Seen by Provider: 10/10/23 05:07 [facility] ED 2 PFS: Medical History Depression GERD (gastroesophageal reflux disease) Thrombocytosis Diabetic peripheral neuropathy associated with type 2 diabetes mellitus Carotid artery stenosis Carotid artery disease Acute CVA (cerebrovascular accident) UTI (urinary tract infection) Aphasia Acute kidney injury superimposed on chronic kidney disease Sepsis Aspiration pneumonitis Chronic kidney disease PUD (peptic ulcer disease) Hypertension Stroke Charcot foot due to diabetes mellitus Coronary artery disease Osteomyelitis Diabetes Diabetic foot ulcer History of hyperbaric oxygen therapy Acute cystitis Cerebrovascular accident Patient with ongoing aphasia Surgical History S/P PICC central line placement Patient had tunneled left subclavian central line for IV antibiotics for osteomyelitis which was removed by Dr. Zelaya 2017 S/P carotid endarterectomy Family History Other Family history non-contributory Social History Smoking and tobacco/nicotine status: never used tobacco/nicotine Alcohol intake: never Substance/Drug Use: never Household members: family Housing: House NIH stroke score 2 Score: Total Score: 4 Course 2 Vital Signs: Vital signs: Vital Signs Temperature 97.6 F 10/10/23 05:14 Pulse Rate 85 10/10/23 10:01 Respiratory Rate 16 10/10/23 09:53 Blood Pressure 198/97 10/10/23 10:01 Pulse Oximetry 94 10/10/23 10:01 Oxygen Delivery Me thod Room Air 10/10/23 10:01 MDM - Neuro Symptoms/Deficit Medical Decision Making Care assumed at change of shift. Patient has leukocytosis with signs of cystitis was also encephalopathy. Will admit started on IV antibiotics. No sign of acute neurologic event I think her symptoms are driven largely by the cystitis. She had previously several years ago been treated for an osteomyelitis associated with Charcot foot I examined her feet did not see any skin breakdown or ulcerations she has definite changes in the right foot but nothing that appears to be acutely infected. Discussed with hospitalist orders written Lab Data 10/10/23 06:00 10/10/23 06:00 Radiology Impressions Chest X-Ray 10/10/23 05:07 IMPRESSION: 1. Cardiomegaly with mild congestion. 2. Linear opacity left lung base likely related to atelectasis or scar tissue Head CT 10/10/23 05:07 IMPRESSION: No acute intracranial abnormality. ASSESSMENT: ASPECTS ([place] Stroke Program Early CT Score) is 10. Head/Neck CTA 10/10/23 05:07 IMPRESSION: Atherosclerotic plaque of the cavernous segments of the internal carotid arteries produces moderate to severe vascular narrowing. IMPRESSION: Atherosclerotic plaque of the carotid bifurcations and proximal internal carotid arteries produces moderate to severe vascular narrowing. REFERENCES: NASCET CRITERIA. The degree of stenosis in the cervical segment of the internal carotid artery is based on NASCET criteria. Normal is no stenosis. Mild is less than 50% stenosis. Moderate is 50-69% stenosis. Severe is 70% to 99% stenosis. Total occlusion is no detectable patent lumen. Laboratory Results WBC 19.81 10^3/uL (3.29-11.43) H 10/10/23 06:00 RBC 6.56 10^6/uL (3.85-5.65) H 10/10/23 06:00 Hgb 12.60 g/dL (11.27-16.99) 10/10/23 06:00 Hct 44.7 % (36-47) 10/10/23 06:00 MCV 68.1 fl (85-98) L 10/10/23 06:00 MCH 19.2 pg (27-33) L 10/10/23 06:00 MCHC 28.2 g/dL (30-55) L 10/10/23 06:00 RDW 24.9 % (12.1-15.1) H 10/10/23 06:00 Plt Count 649 10^3/cmm (157-399) H 10/10/23 06:00 MPV 9.2 fL (7.4-10.4) 10/10/23 06:00 Neut % (Auto) 83.9 % 10/10/23 06:00 Lymph % (Auto) 4.4 % 10/10/23 06:00 Centre % (Auto) 4.9 % 10/10/23 06:00 Eos % (Auto) 2.3 % 10/10/23 06:00 Baso % (Auto) 0.7 % 10/10/23 06:00 Neut # (Auto) 16.61 10^3/uL (1.8-7.7) H 10/10/23 06:00 Lymph # (Auto) 0.9 10^3/uL (0.8-4.8) 10/10/23 06:00 Centre # (Auto) 1.0 10^3/uL (0.2-0.9) H 10/10/23 06:00 Eos # (Auto) 0.5 10^3/uL (0.0-0.8) 10/10/23 06:00 Baso # (Auto) 0.1 10^3/uL (0.0-0.1) 10/10/23 06:00 Nucleated RBC % (auto) 0 % 10/10/23 06:00 Nucleated RBCs # 0.0 /100WBC 10/10/23 06:00 PT 13.30 SECONDS (12.1-14.9) 10/10/23 06:00 INR 0.98 (0.8-1.2) 10/10/23 06:00 APTT 29.5 SECONDS (23.9-36.7) 10/10/23 06:00 Sodium 137 mmol/L (136-145) 10/10/23 06:00 Potassium 4.2 mmol/L (3.5-5.1) 10/10/23 06:00 Chloride 98 mmol/L (98-107) 10/10/23 06:00 Carbon Dioxide 28 mmol/L (22-29) 10/10/23 06:00 Anion Gap 15.2 (5-19) 10/10/23 06:00 BUN 21 mg/dL (8-23) 10/10/23 06:00 Creatinine 1.2 mg/dL (0.5-0.9) H 10/10/23 06:00 GFR Calculation Not Reportable 10/10/23 06:00 Glucose 118 mg/dL (65-115) H 10/10/23 06:00 POC Glucose 127 mg/dL (70-110) H 10/10/23 05:26 Calculated Osmolality 288 mOsm/kg (285-295) 10/10/23 06:00 Lactic Acid 0.7 mmol/L (0.5-2.2) 10/10/23 06:00 Calcium 9.3 mg/dL (8.5-10.5) 10/10/23 06:00 Total Bilirubin 0.4 mg/dL (0.15-1.2) 10/10/23 06:00 AST 19 U/L (0-32) 10/10/23 06:00 ALT 8 U/L (0-33) 10/10/23 06:00 Alkaline Phosphatase 126 U/L (35-105) H 10/10/23 06:00 Total Protein 7.0 g/dL (6.6-8.7) 10/10/23 06:00 Albumin 3.6 g/dL (3.5-5.2) 10/10/23 06:00 Globulin 3.4 g/dL (1.3-4.6) 10/10/23 06:00 Urine Color Yellow (Yellow) 10/10/23 05:56 Urine Appearance Clear (CLEAR) 10/10/23 05:56 Urine pH 7 (5-7) 10/10/23 05:56 Ur Specific [place] 1.015 (1.005-1.030) 10/10/23 05:56 Urine Protein 3+ (Negative) H 10/10/23 05:56 Urine Glucose (UA) Norm (Normal) 10/10/23 05:56 Urine Ketones Negative (Negative) 10/10/23 05:56 Urine Blood Neg (Negative) 10/10/23 05:56 Urine Nitrate Negative (Negative) 10/10/23 05:56 Urine Bilirubin Neg (Negative) 10/10/23 05:56 Urine Urobilinogen Neg mg/dL (Negative) 10/10/23 05:56 Ur Leukocyte Esterase Negative (Negative) 10/10/23 05:56 Urine RBC 0-4 /hpf (0-2) H 10/10/23 05:56 Urine WBC 5-10 /hpf (0-5) H 10/10/23 05:56 Ur Squamous Epith Cells 0-4 /hpf (0-5) H 10/10/23 05:56 Amorphous Sediment Trace /hpf 10/10/23 05:56 Urine Bacteria 1+ /hpf (NONE) H 10/10/23 05:56 Hyaline Casts 0-4 /lpf H 10/10/23 05:56 Urine Mucus 1+ /hpf 10/10/23 05:56 Urine Opiates Screen Negative ng/mL (Negative) 10/10/23 05:56 Ur Barbiturates Screen Negative ng/mL (Negative) 10/10/23 05:56 Ur Phencyclidine Scrn Negative ng/mL (Negative) 10/10/23 05:56 Ur Amphetamines Screen Negative ng/mL (Negative) 10/10/23 05:56 U Benzodiazepines Scrn Negative ng/mL (Negative) 10/10/23 05:56 Urine Cocaine Screen Negative ng/mL (Negative) 10/10/23 05:56 U Marijuana (THC) Screen Negative ng/mL (Negative) 10/10/23 05:56 Discharge Plan Discharge Patient Disposition: Admitted As Inpatient Admit Provider: Mary Jaimes Clinical Impression: Chronic kidney disease, Leukocytosis, Charcot's joint, right ankle and foot, Altered mental state, Aphasia, Cystitis Condition: Stable Coding Level of Care Code ED Facility Maintenance Manager for Cheri Mace
--- NOTE | 2023-10-10 05:34 | ECG_ITS ---
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 Measurements Intervals [place] Rate: 97 P: 46 NE: 178 QRS: -52 QRSD: 129 T: 80 QT: 388 QTc: 493 Interpretive Statements SINUS RHYTHM POSSIBLE LEFT ATRIAL ENLARGEMENT [-0.1mV P-WAVE IN V1/V2] LEFT AXIS DEVIATION [QRS AXIS < -30] POSSIBLE LEFT VENTRICULAR HYPERTROPHY [VOLTAGE CRITERIA PLUS LAE OR QRS WIDENING] POSSIBLE ANTERIOR MYOCARDIAL INFARCTION , OF INDETERMINATE AGE [30 ms Q WAVE IN V3/V4, OR R < 0.2 mV IN V4] Compared to ECG 09/24/2023 19:03:20 Myocardial infarct finding now present Electronically Signed On 10-11-2023 20:15:53 CDT by Herbert Brown M.D. [email or web address]
[2023-10-10] MEDS: iohexol 350 mg/mL 500 mL Btl (per mL) IV (05:35)
[2023-10-10 05:39] LABS: Glucose Point of Care 127 mg/dL (70-110)
--- NOTE | 2023-10-10 05:42 | P.CONIM_ITS ---
Providers/Reason For Consult Consulting Physician/Specialty*: Jeffrey Muñoz MD neurology and epilepsy Reason for Consult*: Code stroke emergency department room #11/acute care Primary Care Provider: Daniel Mae History of Present Illness History of Present Illness Katy Noble is a 77 year old female with a history of stroke in 2020, carotid endarterectomy, type 2 diabetes mellitus, hypertension, thrombocytopenia, osteomyelitis of the right foot and diverticulitis. According to the emergency room personnel, the patient was talking with her on 10/10/2023 at approximately 2:30 AM and was observed by the to experience acute onset of altered mental status and left-sided weakness. Code stroke was initiated at 4:49 AM on 10/10/2023 reporting the patient's ETA was 20 minutes out. Noncontrast head CT was obtained and revealed no acute findings. Patient transported from head CT scan to the emergency department room #11. NIH score = 3 (secondary to patient unable to answer both questions and in complete sentences.) CT angiogram of the head and neck ordered and revealed Atherosclerotic plaque of the carotid bifurcations and proximal internal carotid arteries produces moderate to severe vascular narrowing. Glucose Accu- Chek 127. The was not available to give any additional information. Metabolic lab revealed elevated white count of 27.59 (normal equals 3.2-11.43), there was also reports of neutrophil shift of 23.46 and monocyte shift elevation of 1.6 and basophil shift of 0.2. Hemoglobin and hematocrit 11.1 and 38.7. MCV was decreased at 68.4 (normal he was 85-98), platelet count elevated at 818, 000. (Normal equals 157-399), serum glucose 213. Serum sodium 133. BUN/creatinine elevated 26 and 1.2 respectively. Drug allergies: Codeine which resulted in hives Morphine type reaction unknown Penicillins type reaction unknown Sulfonamide antibiotics type reaction unknown Current medications Tylenol 500 mg p.o. every 6 hours as needed Norvasc 10 mg p.o. daily Aspirin 81 mg p.o. daily Lipitor 20 mg p.o. daily Calcitrol 0.25 mcg p.o. daily Ciprofloxacin 500 mg p.o. twice daily B12 2500 mcg sublingual daily Vitamin D2 1250 mcg p.o. weekly Pepcid 20 mg p.o. twice daily Neurontin 300 mg p.o. nightly Hydralazine 75 mg p.o. 3 times daily Hydroxyurea 500 mg p.o. every other day Insulin degludec (Tresiba FlexTouch) 25 units subcutaneously every morning Lisinopril 5 mg p.o. daily Imodium A-D (loperamide) 2 mg p.o. every 6 hours as needed Metoprolol 25 mg p.o. twice daily Metronidazole 500 mg p.o. 3 times daily Nitroglycerin Zofran 4 mg p.o. daily as needed Zoloft 100 mg p.o. daily Past medical history: Carotid endarterectomy Stroke 2020 Diverticulitis Type 2 diabetes mellitus Hypertension Leukocytosis Thrombocytosis Hematoma Osteomyelitis right foot Chronic kidney disease Diabetic peripheral neuropathy Charcot's joint right ankle and foot Orthostatic hypotension Coronary artery disease Onychodystrophy History of multinodular thyroid disease Habits: None Family history: Unable to obtain due to patient's medical condition Review of Systems General: Reports: ROS unobtainable due to medical condition Medications/Allergies Home Medications Medication Instructions Recorded Confirmed Last Taken Type acetaminophen 500 mg tablet 500 mg PO Q6H PRN pain 05/31/20 09/21/23 2 Days Ago History ~09/15/21 cyanocobalamin (vitamin B-12) 2,500 mcg sublingual DAILY 05/31/20 09/21/23 09/20/23 History 2,500 mcg sublingual tablet (Vitamin B-12) famotidine 20 mg tablet (Pepcid) 20 mg PO BID 05/31/20 09/21/23 09/20/23 History gabapentin 300 mg capsule 300 mg PO BEDTIME 05/31/20 09/21/23 09/20/23 History insulin degludec 200 unit/mL (3 25 unit SUBCUT QAM 06/05/20 09/21/23 09/20/23 History mL) subcutaneous pen (Tresiba FlexTouch U-200 insulin) hydroxyurea 500 mg capsule 500 mg PO EVERY OTHER DAY 12/12/20 09/21/23 09/20/23 History atorvastatin 20 mg tablet 20 mg PO DAILY 04/07/21 09/21/23 09/20/23 History aspirin 81 mg tablet,delayed 81 mg PO DAILY #90 tabs 04/13/21 09/21/23 09/20/23 Rx release amlodipine 10 mg tablet 10 mg PO DAILY #30 tabs 04/29/21 09/21/23 09/20/23 Rx calcitriol 0.25 mcg capsule 0.25 mcg PO DAILY 09/17/21 09/21/23 09/20/23 History ergocalciferol (vitamin D2) 1,250 1,250 mcg PO DAILY 09/17/21 09/21/23 09/20/23 History mcg (50,000 unit) capsule (Vitamin D2) ondansetron 4 mg disintegrating 4 mg PO DAILY PRN Nausea 09/17/21 09/21/23 09/13/21 History tablet loperamide 2 mg capsule (Imodium 2 mg PO Q6H PRN loose stool #10 09/22/21 09/21/23 Unknown Rx A-D) caps Short CAM Boot to the Left #1 ea 09/26/21 09/21/23 Unknown Rx YSLETA DEL SUR BOOT to RIGHT #1 ea 11/28/21 09/21/23 Unknown Rx lisinopril 5 mg tablet 5 mg PO DAILY 09/21/23 09/21/23 Unknown History metoprolol tartrate 25 mg tablet 25 mg PO BID 09/21/23 09/21/23 09/20/23 History nitroglycerin 0.4 mg sublingual See Rx Instructions .Route .COMPLEX 09/21/23 09/21/23 Unknown History tablet sertraline 100 mg tablet 100 mg PO DAILY 09/21/23 09/21/23 09/20/23 History ciprofloxacin HCl 500 mg tablet 500 mg PO BID #14 tabs 09/25/23 Unknown Rx hydralazine 25 mg tablet 75 mg (3 x 25 mg) PO TID #90 tabs 09/25/23 Unknown Rx metronidazole 500 mg tablet 500 mg PO TID #21 tabs 09/25/23 Unknown Rx Allergies Allergy/AdvReac Type Severity Reaction Status Date / Time codeine Allergy ALGY-Hives Verified 09/21/23 07:56 morphine Allergy Unknown Verified 09/21/23 07:56 Penicillins Allergy Unknown Verified 09/21/23 07:56 Sulfa (Sulfonamide Allergy Unknown Verified 09/21/23 07:56 Antibiotics) Current Medications Generic Name Dose Route Start Last Admin Trade Name Freq PRN Reason Stop Dose Admin Iohexol 0 ml 10/10/23 05:35 10/10/23 05:35 Iohexol 350 Mg/Ml 500 Ml Btl (Per Ml) IV 10/10/23 05:36 100 ml ONCE ONE Administration PFSH Acute PFSH: Medical History Depression GERD (gastroesophageal reflux disease) Thrombocytosis Diabetic peripheral neuropathy associated with type 2 diabetes mellitus Carotid artery stenosis Carotid artery disease Acute CVA (cerebrovascular accident) UTI (urinary tract infection) Aphasia Acute kidney injury superimposed on chronic kidney disease Sepsis Aspiration pneumonitis Chronic kidney disease PUD (peptic ulcer disease) Hypertension Stroke Charcot foot due to diabetes mellitus Coronary artery disease Osteomyelitis Diabetes Diabetic foot ulcer History of hyperbaric oxygen therapy Acute cystitis Cerebrovascular accident Patient with ongoing aphasia Surgical History S/P PICC central line placement Patient had tunneled left subclavian central line for IV antibiotics for osteomyelitis which was removed by Dr. Zelaya 2017 S/P carotid endarterectomy Family History Other Family history non-contributory Social History Smoking and tobacco/nicotine status: never used tobacco/nicotine Alcohol intake: never Substance/Drug Use: never Household members: family Housing: House Vitals/I&O/Wt Last Vital Signs Temp 97.6 F 10/10/23 05:14 Pulse 99 10/10/23 05:14 Resp 20 H 10/10/23 05:14 BP 109/91 10/10/23 05:14 Pulse Ox 93 10/10/23 05:14 Weight last 48 hrs Weight 193 lb Physical Exam Narrative: Vital signs stable NIH score = 3 (secondary to inability to answer both questions and in complete sentences) Glucose Accu-Chek 127 The patient is alert and oriented to person. Patient was unable to answer both questions and she displayed in complete sentences repeating one-word when asked questions. Patient does follow all commands. Head atraumatic. Neck supple. Cranial nerves II through XII intact. There was no obvious signs of facial weakness or tongue weakness. Patient was able to protrude her tongue. Pupils 4 mm round reactive to light and accommodation. Extraocular movements intact. Visual moore appear to be full via confrontation. Motor testing 5/5 bilatera lly. Plantar responses flexor bilaterally. There was no clonus. Sensory examination was intact to touch. Patient did not display any obvious signs of any neglect. Throat clear. Lungs clear. Heart regular rhythm and rate. Extremities revealed swelling and deformity of the right ankle and foot. There was no cyanosis. A&P Assessment and plan (1) Aphasia: Impression: 1. Aphasia with NIH stroke score = 3 (secondary to patient unable to answer both questions and displaying incomplete sentences) which was reported by the ER staff per patient's history to begin on 10/10/2023 at approximately 2:30 AM. Code stroke initiated on 10/10/2023 at 4:49 AM reporting patient's ETA was 20 minutes out. Since NIH stroke score = 3, and CT angiogram of the head and neck revealed no large vessel occlusion and patient had elevated white count of 27.59 suggestive of underlying infection, the patient was not a candidate for thrombolytics and no thrombolytics were administered. 1a. Abnormal CT angiogram of the head and neck performed on 10/10/2023 secondary to atherosclerotic plaque of the cavernous segments of the internal carotid arteries produces moderate to severe vascular narrowing. 2. Elevated white count 27.59 with neutrophil monocyte and basophil shift 3. Thrombocytosis 4. Type 2 diabetes mellitus 5. History of CVA 2020 6. History of carotid endarterectomy 7. Hypertension 8. History of diverticulitis 9. History of osteomyelitis of the right foot 10. History of coronary artery disease 11. History of multinodular thyroid disease Plan: 1. Agree with admission to hospital 2. Address elevated white count and assess for infection 3. Follow NIH stroke protocol regarding neurochecks, antiplatelets and lipid- lowering agent 4. Speech therapy consult 5. Occupational Therapy and physical therapy consult 6. Give family stroke pamphlet 7. Recommend patient be evaluated by neurosurgery or vascular surgeon regarding head and neck CT angiogram findings 8. Lipid profile per NIH stroke protocol if not already performed (2) Altered mental state: Consult Attestations Medical Necessity Statement: The patient was evaluated by neurology for code stroke emergency department room #11/acute care Coding Level of Care Code 03217 Diagnoses Aphasia R47.01 Altered mental state R41.82
[2023-10-10 06:12] LABS: Basophils # 0.1 10^3/uL (0.0-0.1); Basophils % 0.7 %; Eosinophils # 0.5 10^3/uL (0.0-0.8); Eosinophils % 2.3 %; Hematocrit 44.7 % (36-47); Lymphocytes # 0.9 10^3/uL (0.8-4.8); Lymphocytes % 4.4 %; Mean Corpuscular HGB Conc 28.2 g/dL (30-55); Mean Corpuscular Hemoglobin 19.2 pg (27-33); Mean Corpuscular Volume 68.1 fl (85-98); Mean Platelet Volume 9.2 fL (7.4-10.4); Monocytes % 4.9 %; Neutrophils # 16.61 10^3/uL (1.8-7.7); Neutrophils % 83.9 %; Nucleated Red Blood Cells % 0 %; Platelet Count 649 10^3/cmm (157-399); Red Blood Count 6.56 10^6/uL (3.85-5.65); Red Cell Distribution Width 24.9 % (12.1-15.1); White Blood Count 19.81 10^3/uL (3.29-11.43)
--- NOTE | 2023-10-10 06:23 | PC.NURSE ---
Spoke with pt's brother he stated she took 300mg Gabapentin and tylenol around 0200 for her back pain and had normal speech. Pt's brother stated around 0230 she started having N/V. Pt's brother stated within 2hrs she went from throwing up to garbled language and jerking movements. Pt's brother stated he has only lived with her for about 3yrs and has no prior knowledge of her previous strokes. Pt's brother stated she became agitated when EMS showed up to take her for evaluation but was unable articulate anything.
[2023-10-10 06:27] LABS: Add Urine Microscopic? YES; Amorphous Sediment Urine TRACE /hpf; Amphetamines Screen Urine Negative (Negative); Bacteria Urine 1+ /hpf; Barbiturates Screen Urine Negative (Negative); Benzodiazepines Screen Urine Negative (Negative); Bilirubin Urine Neg (Negative); Blood Urine Neg (Negative); Cocaine Screen Urine Negative (Negative); Glucose Urine UA Norm (Normal); Hyaline Casts Urine 0-4 /lpf; Ketones Urine Negative (Negative); Leukocyte Esterase Urine Negative (Negative); Mucus Urine 1+ /hpf; Nitrate Urine Negative (Negative); Opiate Screen Urine Negative (Negative); PCP Screen Urine Negative (Negative); Protein Urine 3+ (Negative); RBC Urine 0-4 /hpf (0-2); Specific Gravity, Urine 1.015 (1.005-1.030); Squamous Epithelial Cell Urine 0-4 /hpf (0-5); THC Screen Urine Negative (Negative); Urine Appearance Clear (CLEAR); Urine Color Yellow (Yellow); Urobilinogen Urine Neg (Negative); pH Urine 7 (5-7)
[2023-10-10 06:28] LABS: Alanine Aminotransferase 8 U/L (0-33); Albumin Level 3.6 g/dL (3.5-5.2); Alkaline Phosphatase 126 U/L (35-105); Aspartate Amino Transferase 19 U/L (0-32); Blood Urea Nitrogen 21 mg/dL (8-23); Calcium 9.3 mg/dL (8.5-10.5); Carbon Dioxide 28 mmol/L (22-29); Chloride 98 mmol/L (98-107); Creatinine Clr Calc Pharmacy 49.5569; Globulin 3.4 g/dL (1.3-4.6); Glucose 118 mg/dL (65-115); Osmolality Calculated 288 mOsm/kg (285-295); Sodium 137 mmol/L (136-145); Total Bilirubin 0.4 mg/dL (0.15-1.2)
[2023-10-10 06:29] LABS: Anion Gap 15.2 (5-19); Potassium 4.2 mmol/L (3.5-5.1)
[2023-10-10 06:30] LABS: INR 0.98 (0.8-1.2); Partial Thromboplastin Time 29.5 SECONDS (23.9-36.7)
[2023-10-10] MEDS: cefTRIAXone 1,000 MG in sodium chloride 0.9% (plus) 50 ML 100 MG IV (07:39)
[2023-10-10 08:02] LABS: Lactic Sepsis W/Reflex 0.7 mmol/L (0.5-2.2)
[2023-10-10] MEDS: labetalol 5 mg/mL SDV 20mL 10 MG IVP (09:32)
--- NOTE | 2023-10-10 10:00 | PC.NURSE ---
Patient comes to [facility] from ED at 1000.
[2023-10-10] MEDS: sodium chloride 0.9% 1,000 ML 100 ML IV (11:14)
[2023-10-10 11:22] LABS: Glucose Point of Care 132 mg/dL (70-110)
[2023-10-10 11:22] LABS: Glucose Point of Care 162 mg/dL (70-110)
--- NOTE | 2023-10-10 12:20 | PC.NURSE ---
Provider notified of patients elevated blood pressures. No new orders at this time.
--- NOTE | 2023-10-10 12:39 | PC.NURSE ---
Provider stopped nursing in hallway and ordered hydralazine 10mg IVP now for elevated blood pressures. Also, do a bedside swallow on patient.
[2023-10-10] MEDS: hyDRALAzine 20 mg/mL INJ 1 mL 10 MG IVP ×2 (12:42→23:58)
--- NOTE | 2023-10-10 13:07 | PC.NURSE ---
Patient was unable to swallow. She was unable to follow commands. Nurse tried to swab her mouth with moisted green swab and she swallowed the few drops that were in the swab. Patient immediately started vomiting.
--- NOTE | 2023-10-10 14:12 | P.HP_ITS ---
Providers/Chief Complaint 2 Admitting Physician: Mary Jaimes MD Primary Care Provider: Daniel Mae Chief Complaint: AMS History of Present Illness Katy Noble is a 77 year old female with past medical history of stroke in 2020, hypertension, diabetes, diverticulosis, osteomyelitis of right foot, CKD, diabetic peripheral neuropathy, multinodular thyroid, coronary artery disease was brought in by EMS for altered mental status last night. She is aphasic and altered, unable to provide significant history. Family not present at bedside, tried calling but no answer. As per ER physician she was able to move all extremities but unable to answer any questions or really formulate sentences. There is no history of fever, cold, cough, urinary or bowel complaints. She was admitted few weeks ago for UTI. To add up, as per neurology note, she was observed to have altered mental status and left-sided weakness but he has been. Stroke hold initiated. Seen by neurology Dr. Muñoz, CT head was negative for any acute intracranial findings and CT angiogram of head and neck performed which showed Atherosclerotic plaque of the cavernous segments of the internal carotid arteries produces moderate to severe vascular narrowing. He recommended for NIH stroke protocol with neurochecks, antiplatelets and lipid-lowering agent. In ER she was found to have WBC count of 19.8 with left shift, creatinine of 1.2 at baseline, and UA negative for UTI. EKG was normal sinus rhythm with left axis deviation no acute ST-T changes 2 D ECHO 09/21/23 Normal left ventricular size and systolic function, EF 78%. Mild to moderate left ventricular hypertrophy. No regional wall motion abnormalities. Grade I/IV diastolic dysfunction (abnormal relaxation filling pattern), normal to mildly elevated filling pressures. Mildly increased left atrial size. Mild mitral annular calcification. Mild mitral valve regurgitation. Some features of aortic valve sclerosis. Trace tricuspid valve regurgitation. Estimated pulmonary artery peak systolic pressure 32 mmHg There is no pericardial effusion. There are no intracardiac masses. No similar previous studies are available for comparison Review of Systems 2 General: Reports: ROS unobtainable due to mental status Medications/Allergies Home Medications Medication Instructions Recorded Confirmed Last Taken Type acetaminophen 500 mg tablet 500 mg PO Q6H PRN pain 05/31/20 10/10/23 2 Days Ago History ~09/15/21 cyanocobalamin (vitamin B-12) 2,500 mcg sublingual DAILY 05/31/20 10/10/2309/19/24 History 2,500 mcg sublingual tablet (Vitamin B-12) famotidine 20 mg tablet (Pepcid) 20 mg PO BID 05/31/20 10/10/23 09/20/23 History gabapentin 300 mg capsule 300 mg PO BEDTIME 05/31/20 10/10/23 09/20/23 History insulin degludec 200 unit/mL (3 25 unit SUBCUT QAM 06/05/20 10/10/23 09/20/23 History mL) subcutaneous pen (Tresiba FlexTouch U-200 insulin) hydroxyurea 500 mg capsule 500 mg PO EVERY OTHER DAY 12/12/20 10/10/23 09/20/23 History atorvastatin 20 mg tablet 20 mg PO DAILY 04/07/21 10/10/23 09/20/23 History aspirin 81 mg tablet,delayed 81 mg PO DAILY #90 tabs 04/13/21 10/10/23 09/20/23 Rx release amlodipine 10 mg tablet 10 mg PO DAILY #30 tabs 04/29/21 10/10/23 09/20/23 Rx calcitriol 0.25 mcg capsule 0.25 mcg PO DAILY 09/17/21 10/10/23 09/20/23 History loperamide 2 mg capsule (Imodium 2 mg PO Q6H PRN loose stool #10 09/22/21 10/10/23 Unknown Rx A-D) caps Short CAM Boot to the Left #1 ea 09/26/21 10/10/23 Unknown Rx YSLETA DEL SUR BOOT to RIGHT #1 ea 11/28/21 10/10/23 Unknown Rx lisinopril 5 mg tablet 5 mg PO DAILY 09/21/23 10/10/23 Unknown History nitroglycerin 0.4 mg sublingual See Rx Instructions .Route .COMPLEX 09/21/23 10/10/23 Unknown History tablet sertraline 100 mg tablet 100 mg PO DAILY 09/21/23 10/10/23 09/20/23 History hydralazine 25 mg tablet 75 mg (3 x 25 mg) PO TID #90 tabs 09/25/23 10/10/23 Unknown Rx carvedilol 12.5 mg tablet 25 mg PO BID 10/10/23 10/10/23 Unknown History Allergies Allergy/AdvReac Type Severity Reaction Status Date / Time codeine Allergy ALGY-Hives Verified 09/21/23 07:56 morphine Allergy Unknown Verified 09/21/23 07:56 Penicillins Allergy Unknown Verified 09/21/23 07:56 Sulfa (Sulfonamide Allergy Unknown Verified 09/21/23 07:56 Antibiotics) PFSH Acute 2 PFSH: Medical History Depression GERD (gastroesophageal reflux disease) Thrombocytosis Diabetic peripheral neuropathy associated with type 2 diabetes mellitus Carotid artery stenosis Carotid artery disease Acute CVA (cerebrovascular accident) UTI (urinary tract infection) Aphasia Acute kidney injury superimposed on chronic kidney disease Sepsis Aspiration pneumonitis Chronic kidney disease PUD (peptic ulcer disease) Hypertension Stroke Charcot foot due to diabetes mellitus Coronary artery disease Osteomyelitis Diabetes Diabetic foot ulcer History of hyperbaric oxygen therapy Acute cystitis Cerebrovascular accident Patient with ongoing aphasia Surgical History S/P PICC central line placement Patient had tunneled left subclavian central line for IV antibiotics for osteomyelitis which was removed by Dr. Zelaya 2017 S/P carotid endarterectomy Family History Other Family history non-contributory Social History Smoking and tobacco/nicotine status: never used tobacco/nicotine Alcohol intake: never Substance/Drug Use: never Household members: family Housing: House Vitals/I&O/Wt Last Vital Signs Temp 97.6 F 10/10/23 05:14 Pulse 85 10/10/23 10:01 Resp 16 10/10/23 09:53 BP 198/97 10/10/23 10:01 Pulse Ox 94 10/10/23 10:01 O2 Del Method Room Air 10/10/23 10:01 10/09/23 10/10/23 10/10/23 22:59 06:59 14:59 Intake Total 50 / 50 Output Total 650 / 650 Balance -600 / -600 Weight last 48 hrs Weight 86.636 kg Weight 87.543 kg Physical Exam 2 Narrative: She is awake but not oriented, aphasic, unable to speak or formulate sentences. Unable to follow commands. Just responds with Hmm for every question Chest clear to auscultation bilaterally Cardiovascular normal heart sounds no murmurs Abdomen NAD Extremities-no edema noted left lower extremity, right lower extremity swollen. Neurological-cannot assess due to altered mental status, but she is able to move bilateral upper extremities. Urinary Catheter Management: Rodriguez: Cath Placed During This Visit: yes Urinary Catheter Date of Insertion: 10/10/23 Urinary Catheter Time of Insertion: 09:12 Data 10/10/23 06:00 10/10/23 06:00 Micro: Microbiology 10/10/23 07:08 Blood Culture - Preliminary Blood SPECIMEN COLLECTED 10/10/23 07:11 Blood Culture - Preliminary Blood SPECIMEN COLLECTED A&P Assessment and plan (1) Altered mental state: (2) Aphasia: (3) Leukocytosis: Plan 77 year old female with past medical history of stroke in 2020, hypertension, diabetes, diverticulosis, osteomyelitis of right foot, CKD, diabetic peripheral neuropathy, multinodular thyroid, coronary artery disease was brought in by EMS for altered mental status last night. She is aphasic and altered, likely secondary to acute stroke. Follow-up neurology Dr. Muñoz As per neurology evaluation patient was not a candidate for thrombolytics Continuous telemetry monitoring NIH stroke protocol with neurochecks Speech and swallow consult OT/PT consult Failed bedside swallow eval. Aspiration precaution Will check MRI head without contrast. Leukocytosis likely reactive, no active source of infection visible right now. Will hold off on antibiotics. CKD-stable for now. Will monitor. Hold home medications. DVT prophylaxis with SCD Stress ulcer prophylaxis with IV Pepcid 20 mg twice a day NPO for now. unable to assess code status due to absence of family member at bedside, she is full code for now. Attestations 2 Medical Necessity Statement*: She needs continued hospitalization crossing 2 midnights for management of acute stroke, leukocytosis with neurochecks, swallow eval, OT PT eval Time Spent in Patient Care: 45 minutes Coding Level of Care Code Acute Code for Chg Fwd Diagnoses Altered mental state R41.82 Aphasia R47.01 Leukocytosis D72.829 Time Spent (min) 45
--- NOTE | 2023-10-10 14:32 | MRR_ITS ---
PROCEDURE INFORMATION: Exam: MR Head Without Contrast Exam date and time: 10/10/2023 3:21 PM Age: 77 years old Clinical indication: Altered mental status/memory loss; Confusion or disorientation; Additional info: Stroke patient. . Dr adrian consulted TECHNIQUE: Imaging protocol: Magnetic resonance imaging of the head without contrast. COMPARISON: 1. CT angio headneck* [id number] 10/10/2023 5:[address] head dated 10/10/2023. FINDINGS: Limitations: Suboptimal evaluation of multiple sequences secondary to patient motion. Brain: No areas of reduced diffusion to suggest acute infarct. Mild nonspecific periventricular and subcortical T2 hyperintensity which may be related to microvascular ischemic changes. Cerebral ventricles: Normal. No ventriculomegaly. Bones: Unremarkable. Paranasal sinuses: Well aerated. No fluid levels. Mastoid air cells: Fluid is seen in the right mastoid air cells. Orbital cavities: Orbits and globes are intact. Soft tissues: Unremarkable. MR/MR head wo con* [id number] IMPRESSION: No acute intracranial abnormality.
--- NOTE | 2023-10-10 14:34 | PC.NURSE ---
Provider ordered MRI for worsening altered mental statis.
--- NOTE | 2023-10-10 15:32 | PC.NURSE ---
Provider verified to stop NS and start D5 1/2 NS.
--- NOTE | 2023-10-10 15:40 | PC.NURSE ---
Patient off the floor for MRI at 1520.
[2023-10-10] MEDS: dextrose 5%-sod chloride 0.45% 1,000 ML 75 ML IV (15:44)
[2023-10-10] MEDS: famotidine 20 mg/2 mL INJ IVP (15:45)
[2023-10-10 16:50] LABS: Glucose Point of Care 165 mg/dL (70-110)
--- NOTE | 2023-10-10 18:24 | PC.NURSE ---
Patient is unable to answer questions during day-shift for hospital admit, immunization assessment, and unsure if patient is able to understand for CAUTI.
[2023-10-10 20:23] LABS: Glucose Point of Care 176 mg/dL (70-110)
[2023-10-11] VITALS (8 sets, daily range): BP systolic 154–185; BP diastolic 75–112; PULSE 79–104; RESP 12–22; TEMP 36.6–37.1; O2SAT 92–95
[2023-10-11] MEDS: famotidine 20 mg/2 mL INJ IVP ×2 (03:30→14:55)
[2023-10-11] MEDS: dextrose 5%-sod chloride 0.45% 1,000 ML 75 ML IV ×2 (03:32→19:35)
[2023-10-11] MEDS: hyDRALAzine 20 mg/mL INJ 1 mL 10 MG IVP (04:34)
[2023-10-11 04:45] LABS: Basophils # 0.2 10^3/uL (0.0-0.1); Basophils % 0.8 %; Eosinophils # 0.3 10^3/uL (0.0-0.8); Eosinophils % 1.7 %; Hematocrit 47.4 % (36-47); Lymphocytes % 5.1 %; Mean Corpuscular HGB Conc 27.8 g/dL (30-55); Mean Corpuscular Hemoglobin 19.2 pg (27-33); Mean Platelet Volume 9.5 fL (7.4-10.4); Monocytes % 4.9 %; Neutrophils # 17.08 10^3/uL (1.8-7.7); Nucleated Red Blood Cells % 0 %; Platelet Count 701 10^3/cmm (157-399); Red Blood Count 6.87 10^6/uL (3.85-5.65); Red Cell Distribution Width 25.4 % (12.1-15.1); White Blood Count 20.32 10^3/uL (3.29-11.43)
[2023-10-11 05:06] LABS: Chol HDL Ratio 2.98 mg/dL (0.0-4.40); Cholesterol 170 mg/dL (0-200); HDL Cholesterol 57 mg/dL (60-100); LDL Cholesterol Calculated 80 mg/dL (50-129); Triglycerides 165 mg/dL (0-150)
[2023-10-11 05:13] LABS: Alanine Aminotransferase 6 U/L (0-33); Albumin Level 3.3 g/dL (3.5-5.2); Alkaline Phosphatase 142 U/L (35-105); Aspartate Amino Transferase 11 U/L (0-32); Blood Urea Nitrogen 23 mg/dL (8-23); Calcium 9.3 mg/dL (8.5-10.5); Carbon Dioxide 25 mmol/L (22-29); Chloride 100 mmol/L (98-107); Creatinine Clr Calc Pharmacy 49.4526; Globulin 2.7 g/dL (1.3-4.6); Glucose 249 mg/dL (65-115); Osmolality Calculated 296 mOsm/kg (285-295); Sodium 137 mmol/L (136-145); Total Bilirubin 0.3 mg/dL (0.15-1.2)
[2023-10-11] MEDS: labetalol 5 mg/mL SDV 20mL 20 MG IVP (06:29)
[2023-10-11 07:46] LABS: Glucose Point of Care 250 mg/dL (70-110)
[2023-10-11 08:05] LABS: Add Urine Microscopic? YES; Bilirubin Urine Neg (Negative); Blood Urine 2+ (Negative); Glucose Urine UA 2+ (Normal); Ketones Urine 1+ (Negative); Leukocyte Esterase Urine Trace (Negative); Nitrate Urine Negative (Negative); Protein Urine 3+ (Negative); Specific Gravity, Urine 1.015 (1.005-1.030); Urine Appearance Clear (CLEAR); Urine Color Yellow (Yellow); Urobilinogen Urine Norm (Negative); pH Urine 7 (5-7)
[2023-10-11 08:06] LABS: Add Urine Culture? Yes; Bacteria Urine 1+ /hpf; RBC Urine 0-4 /hpf (0-2); Squamous Epithelial Cell Urine 0-4 /hpf (0-5); WBC Urine 15-25 /hpf (0-5)
[2023-10-11] MEDS: SODIUM CHLORIDE 0.9% IV ×3 (08:55→22:56)
[2023-10-11] MEDS: MEROPENEM IV ×3 (08:55→22:56)
--- NOTE | 2023-10-11 10:56 | P.PN_ITS ---
Subjective 2 Subjective: Seen her at bedside this morning, she looks much comfortable as compared to admission, was able to give one-word answers to the questions, unable to formulate a sentence, still has clouding of memory, but able to follow commands. Had involuntary circulatory movement of lips and tongue similar to tardive dyskinesia Medications: Reviewed: Yes Vitals/I&O/Wt Last Vital Signs Temp 97.8 F 10/11/23 07:56 Pulse 90 10/11/23 07:56 Resp 19 H 10/11/23 07:56 BP 172/85 10/11/23 07:56 Pulse Ox 95 10/11/23 07:56 O2 Del Method Room Air 10/11/23 07:56 10/10/23 10/11/23 10/11/23 22:59 06:59 14:59 Intake Total 1000.000 / 1050.000 885 / 1935.000 Output Total 250 / 900 350 / 1250 Balance 750.000 / 150.000 535 / 685.000 Weight last 48 hrs Weight 87.135 kg Weight 86.636 kg Weight 87.543 kg Physical Exam 2 Narrative: She is awake orientedx2, able to answer questions in one-word, unable to formulate sentences or words sometimes, following commands Chest clear to auscultation bilaterally Cardiovascular normal heart sounds no murmurs Abdomen NAD Extremities-no edema noted bilateral lower extremities Neurological-right pupil dilated, no motor or sensory deficits noted, TD like movements noted with oral cavity Urinary Catheter Management: Rodriguez: Cath Placed During This Visit: yes Reason for Continuing Indwelling Catheter: Accurate Measurement of Urinary Output in Critically Ill Patients Urinary Catheter Date of Insertion: 10/10/23 Urinary Catheter Time of Insertion: 09:12 Data 10/11/23 04:14 10/11/23 04:14 Micro: Microbiology 10/10/23 07:08 Blood Culture - Preliminary Blood NEGATIVE TO DATE 10/10/23 07:11 Blood Culture - Preliminary Blood NEGATIVE TO DATE A&P Assessment and plan (1) Altered mental state: (2) Aphasia: (3) Leukocytosis: Plan 77 year old female with past medical history of stroke in 2020, hypertension, diabetes, diverticulosis, osteomyelitis of right foot, CKD, diabetic peripheral neuropathy, multinodular thyroid, coronary artery disease was brought in by EMS for altered mental status last night. She is aphasic and altered, likely secondary to acute stroke. Follow-up neurology Dr. Muñoz As per neurology evaluation patient was not a candidate for thrombolytics Continuous telemetry monitoring [facility] stroke protocol with neurochecks Speech and swallow consult OT/PT consult Failed bedside swallow eval. Aspiration precaution Will check MRI head without contrast. Leukocytosis likely reactive, no active source of infection visible right now. Will hold off on antibiotics. CKD-stable for now. Will monitor. Hold home medications. DVT prophylaxis with SCD Stress ulcer prophylaxis with IV Pepcid 20 mg twice a day NPO for now. unable to assess code status due to absence of family member at bedside, she is full code for now. Plan for /-worsening leukocytosis, blood cultures still pending, will start on broad-spectrum IV meropenem 1 g every 8 hours for now. Bedside swallow eval, if successful will start on clear liquids. Will update family with the current medical status Attestations 2 Medical Necessity Statement*: She needs continued hospitalization crossing 2 midnights for management of acute stroke/TIA, leukocytosis with neurochecks, swallow eval, OT PT eval Time Spent in Patient Care: 15 minutes Coding Level of Care Code Acute Code for Chg Fwd Diagnoses Altered mental state R41.82 Aphasia R47.01 Leukocytosis D72.829 Time Spent (min) 15
[2023-10-11 11:44] LABS: Glucose Point of Care 253 mg/dL (70-110)
[2023-10-11] MEDS: insulin lispro 100 unit/1 mL SUBCUT ×3 (11:49→21:12)
--- NOTE | 2023-10-11 12:26 | XRR_ITS ---
PROCEDURE INFORMATION: Exam: XR Left Knee Exam date and time: 10/11/2023 1:48 PM Age: 77 years old Clinical indication: Pain; Knee; Left; Additional info: Left knee pain S/P fall TECHNIQUE: Imaging protocol: Radiologic exam of the left knee. Views: 1 or 2 views. COMPARISON: [place] [id number] ORTH 08/13/2020 10:15 AM FINDINGS: Bones/joints: No fracture or acute osseous abnormality. Moderate degenerative change or osteoarthritis. No significant suprapatellar fullness or effusion. Soft tissues: No significant focal soft tissue abnormality. Vasculature: Arterial vascular calcification is seen. XR/XR knee LT 1-2V [id number] IMPRESSION: Degenerative change. No fracture or acute osseous abnormality.
[2023-10-11] MEDS: ondansetron 2 mg/ML SDV 2 mL 4 MG IVP (12:38)
[2023-10-11] MEDS: acetaminophen 325 mg Tablet 650 MG PO (15:00)
[2023-10-11 16:53] LABS: Glucose Point of Care 256 mg/dL (70-110)
--- NOTE | 2023-10-11 18:20 | PC.NURSE ---
as shift has progressed...pt is more and more verbal.Pt is forgetful...but does remember ,knows she is in hospital,stated that she used to work at [employer] .Left knee pain has improved since tylenol given earlier.Son visited and stated that every time she gets a uti..which is frequently,she gets confused,cant talk .
[2023-10-11 20:26] LABS: Glucose Point of Care 213 mg/dL (70-110)
[2023-10-12] VITALS (7 sets, daily range): BP systolic 119–192; BP diastolic 62–119; PULSE 75–101; RESP 16–21; TEMP 36.2–37.1; O2SAT 93–97
[2023-10-12] MEDS: famotidine 20 mg/2 mL INJ IVP ×2 (02:49→15:26)
[2023-10-12 04:33] LABS: Basophils # 0.2 10^3/uL (0.0-0.1); Basophils % 1.1 %; Eosinophils # 0.6 10^3/uL (0.0-0.8); Eosinophils % 3.2 %; Lymphocytes # 1.1 10^3/uL (0.8-4.8); Lymphocytes % 5.9 %; Mean Corpuscular HGB Conc 27.6 g/dL (30-55); Mean Corpuscular Hemoglobin 19.3 pg (27-33); Mean Platelet Volume 9.6 fL (7.4-10.4); Monocytes # 1.1 10^3/uL (0.2-0.9); Monocytes % 5.9 %; Neutrophils # 14.94 10^3/uL (1.8-7.7); Neutrophils % 80.1 %; Nucleated Red Blood Cells % 0 %; Platelet Count 570 10^3/cmm (157-399); Red Blood Count 6.57 10^6/uL (3.85-5.65); Red Cell Distribution Width 25.5 % (12.1-15.1); White Blood Count 18.64 10^3/uL (3.29-11.43)
[2023-10-12] MEDS: hyDRALAzine 20 mg/mL INJ 1 mL 10 MG IVP ×2 (04:42→10:49)
[2023-10-12 04:59] LABS: Alanine Aminotransferase 6 U/L (0-33); Albumin Level 3.3 g/dL (3.5-5.2); Alkaline Phosphatase 132 U/L (35-105); Anion Gap 15.1 (5-19); Aspartate Amino Transferase 11 U/L (0-32); Blood Urea Nitrogen 24 mg/dL (8-23); Calcium 9.7 mg/dL (8.5-10.5); Carbon Dioxide 26 mmol/L (22-29); Chloride 96 mmol/L (98-107); Creatinine Clr Calc Pharmacy 39.5621; Globulin 2.6 g/dL (1.3-4.6); Glucose 167 mg/dL (65-115); Osmolality Calculated 284 mOsm/kg (285-295); Potassium 4.1 mmol/L (3.5-5.1); Sodium 133 mmol/L (136-145); Total Bilirubin 0.4 mg/dL (0.15-1.2); Total Protein 5.9 g/dL (6.6-8.7)
[2023-10-12 07:12] LABS: Glucose Point of Care 201 mg/dL (70-110)
[2023-10-12] MEDS: SODIUM CHLORIDE 0.9% IV (08:53)
[2023-10-12] MEDS: MEROPENEM IV (08:53)
[2023-10-12] MEDS: dextrose 5%-sod chloride 0.45% 1,000 ML 75 ML IV (08:55)
[2023-10-12] MEDS: insulin lispro 100 unit/1 mL SUBCUT ×4 (08:55→21:29)
--- NOTE | 2023-10-12 10:09 | PC.CHAP ---
Pastoral Care Encounter/Spiritual Assessment Type of Contact [] Declined transitional studies instructor visit [] Patient/Family/Request visit [] Outpatient visit [] Follow-up visit [] Physician referral [] Code/Alert [x] Routine visit [] Staff referral [] Actively dying [] Patient sleeping [] Family support [] [] Out of room [] Palliative care [] [] Receiving care in room [] Pre-surgical visit [] Trauma [] Long length of stay [] ICU visit [] Other: Relational/Emotional Strength [] Patient feels connected with others/family/visitors/staff [] Distress [] Loneliness/isolation [] Abandonment Spirituality of Patient [] Person of Namita [] Attends Catholic of their Namita [] Believes in Prayer [] Reads Bible or Temple materials [] There are Spiritual issues to be addressed Radiology Physician Assistant Interventions [x] Prayer [] Active listening [x] Non-anxious presence [] Spiritual/emotional support [] Crisis/trauma care [] Spiritual counseling [] Bereavement support [] Provided bereavement packet [] Provided Bible/devotional materials [] Provided toy/stuffed animal, coloring book to patient or family member [] Provided Communion [] Anointing/[place] [] Salvation [x] Completed spiritual assessment [] Other: Impact on Illness or Injury [] Angry [] Fearful [] Anxious [] Often cries [] Exhaustion [] Unable to work [] Unable to attend caodaism [] Unable to walk/stand [] Unable to read [] Unable to drive [] Unable to eat/drink [] Unable to sleep [] Unable to be with family [] Patient intubated [] Other: Summary Time spent with patient 5 min
[2023-10-12] MEDS: acetaminophen 325 mg Tablet 650 MG PO ×2 (10:55→17:51)
[2023-10-12 12:09] LABS: Glucose Point of Care 292 mg/dL (70-110)
--- NOTE | 2023-10-12 14:38 | P.PN_ITS ---
Subjective 2 Subjective: Seen her at bedside this morning. Since again confused, unable to follow commands, unable to communicate. She is afebrile and MRI head without contrast did not show any acute abnormalities. Blood cultures and urine cultures so far is negative. Leukocytosis improving since admission. Vitals/I&O/Wt Last Vital Signs Temp 98 F 10/12/23 11:44 Pulse 101 H 10/12/23 11:44 Resp 21 H 10/12/23 11:44 BP 119/62 10/12/23 11:44 Pulse Ox 95 10/12/23 11:44 O2 Del Method Room Air 10/12/23 11:44 10/11/23 10/12/23 10/12/23 22:59 06:59 14:59 Intake Total 1100 / 1200 100 / 1300 1342.25 / 1342.25 Output Total 750 / 750 1000 / 1750 Balance 350 / 450 -900 / -450 1342.25 / 1342.25 Weight last 48 hrs Weight 87.135 kg Physical Exam 2 Narrative: She is awake but not oriented, unable to speak or formulate sentences. Unable to follow commands. Just responds with yes for every question Chest clear to auscultation bilaterally Cardiovascular normal heart sounds no murmurs Abdomen NAD Extremities-no edema noted left lower extremity, right lower extremity swollen. Neurological-no focal sensory or motor deficits noted Urinary Catheter Management: Rodriguez: Cath Placed During This Visit: yes Reason for Continuing Indwelling Catheter: Accurate Measurement of Urinary Output in Critically Ill Patients Urinary Catheter Date of Insertion: 10/10/23 Urinary Catheter Time of Insertion: 09:12 Data 10/12/23 03:54 10/12/23 03:54 Micro: Microbiology 10/11/23 07:40 Urine Culture - Preliminary Urine,Clean Catch A&P Assessment and plan (1) Altered mental state: (2) Aphasia: (3) Leukocytosis: Plan 77 year old female with past medical history of stroke in 2020, hypertension, diabetes, diverticulosis, osteomyelitis of right foot, CKD, diabetic peripheral neuropathy, multinodular thyroid, coronary artery disease was brought in by EMS for altered mental status last night. She is aphasic and altered, likely secondary to acute stroke. Follow-up Dr. Muñoz As per neurology evaluation patient was not a candidate for thrombolytics Continuous telemetry monitoring [facility] stroke protocol with neurochecks Speech and swallow consult OT/PT consult Failed bedside swallow eval. Aspiration precaution Will check MRI head without contrast. Leukocytosis likely reactive, no active source of infection visible right now. Will hold off on antibiotics. CKD-stable for now. Will monitor. Hold home medications. DVT prophylaxis with SCD Stress ulcer prophylaxis with IV Pepcid 20 mg twice a day NPO for now. unable to assess code status due to absence of family member at bedside, she is full code for now. Plan for 01/07-worsening leukocytosis, blood cultures still pending, will start on broad-spectrum IV meropenem 1 g every 8 hours for now. Bedside swallow eval, if successful will start on clear liquids. Will update family with the current medical status Plan for 10/11-mental status improved since admission yesterday but again today she was seen to be confused, unable to communicate and unable to follow commands. Although altered mental status likely secondary to UTI, she has waxing and waning of AMS Will continue with broad-spectrum coverage with IV meropenem 1 g every 8 hours for now Follow-up final cultures and sensitivities Plan to speak with the family about her baseline. She is on dysphagia level 6 soft diet, passed bedside swallow eval Resumed her home medications amlodipine, carvedilol, and lisinopril. Attestations 2 Medical Necessity Statement*: She needs continued hospitalization crossing 2 midnights for management of altered mental status, UTI, leukocytosis with neurochecks, swallow eval, OT PT eval Time Spent in Patient Care: 15 minutes Coding Level of Care Code Acute Code for Chg Fwd Diagnoses Altered mental state R41.82 Aphasia R47.01 Leukocytosis D72.829 Time Spent (min) 15
[2023-10-12 17:38] LABS: Glucose Point of Care 300 mg/dL (70-110)
[2023-10-12] MEDS: carvedilol 12.5 mg Tablet 25 MG PO (17:47)
--- NOTE | 2023-10-12 17:52 | PC.NURSE ---
fingers on left hand are swollen, pt has more soreness and restrictive movement on this hand notified drMiles left hand elevated with pillows to decrease swelling.
[2023-10-12] MEDS: sodium chloride 0.45% 1,000 ML 100 ML IV (18:14)
[2023-10-12 20:19] LABS: Glucose Point of Care 234 mg/dL (70-110)
[2023-10-12] MEDS: meropenem 1,000 MG in sodium chloride 0.9% (plus) 50 ML 200 MG IV (21:04)
[2023-10-13] MEDS: acetaminophen 325 mg Tablet 650 MG PO ×2 (00:39→11:25)
[2023-10-13] MEDS: sodium chloride 0.45% 1,000 ML 100 ML IV (03:14)
[2023-10-13] MEDS: famotidine 20 mg/2 mL INJ IVP ×2 (03:14→14:03)
[2023-10-13 04:00] VITALS: BP 195/99; PULSE 84; RESP 15; O2SAT 96
[2023-10-13] MEDS: hyDRALAzine 20 mg/mL INJ 1 mL 10 MG IVP (04:25)
[2023-10-13 04:31] LABS: Basophils # 0.2 10^3/uL (0.0-0.1); Eosinophils # 0.8 10^3/uL (0.0-0.8); Eosinophils % 4.9 %; Hematocrit 43.1 % (36-47); Lymphocytes # 1.1 10^3/uL (0.8-4.8); Lymphocytes % 6.6 %; Mean Corpuscular HGB Conc 28.8 g/dL (30-55); Mean Corpuscular Hemoglobin 19.4 pg (27-33); Mean Corpuscular Volume 67.6 fl (85-98); Mean Platelet Volume 9.4 fL (7.4-10.4); Monocytes # 0.9 10^3/uL (0.2-0.9); Monocytes % 5.6 %; Neutrophils # 13.45 10^3/uL (1.8-7.7); Neutrophils % 80.2 %; Nucleated Red Blood Cells % 0 %; Platelet Count 573 10^3/cmm (157-399); Red Blood Count 6.38 10^6/uL (3.85-5.65); Red Cell Distribution Width 25.2 % (12.1-15.1); White Blood Count 16.77 10^3/uL (3.29-11.43)
[2023-10-13 04:47] LABS: Alanine Aminotransferase < 5 U/L (0-33); Albumin Level 3.1 g/dL (3.5-5.2); Alkaline Phosphatase 116 U/L (35-105); Anion Gap 12.6 (5-19); Aspartate Amino Transferase 14 U/L (0-32); Blood Urea Nitrogen 36 mg/dL (8-23); Calcium 8.9 mg/dL (8.5-10.5); Carbon Dioxide 27 mmol/L (22-29); Chloride 96 mmol/L (98-107); Creatinine Clr Calc Pharmacy 31.2332; Globulin 2.9 g/dL (1.3-4.6); Glucose 93 mg/dL (65-115); Osmolality Calculated 282 mOsm/kg (285-295); Potassium 3.6 mmol/L (3.5-5.1); Sodium 132 mmol/L (136-145); Total Bilirubin 0.4 mg/dL (0.15-1.2)
[2023-10-13 05:40] LABS: Glucose Point of Care 110 mg/dL (70-110)
--- NOTE | 2023-10-13 07:12 | US_ITS ---
WS: [id number] RENAL ULTRASOUND HISTORY: worsening acute renal failure COMPARISON: 09/24/2023, CT 09/23/2023 TECHNIQUE: 2-D and color Doppler imaging of the kidney submitted. Right kidney: 10.7 cm x 5.3 cm x 5.3 cm. Cortex: 1.1 cm Normal size kidneys. There is minimal cortical focal thinning but still remains normal. There is poor corticomedullary differentiation and increased echogenicity throughout the kidney. There are several tiny cortical cysts scattered throughout the kidney. No solid mass. Left kidney: 9.7 cm x 4.5 cm x 4.0 cm. The measurements are not accurate. The LEFT kidney is very poorly visualized. The entire kidney is not visualized. There are several cor tical cysts seen on recent CT. The entire kidney is medially positioned and surrounded by bowel. The ultrasound cannot identify kidney accurately. Aorta: Not visualized. Urinary Bladder: Not distended. US/US renal BI* [id number] IMPRESSION: 1. Poor cortical measured differentiation with increased echogenicity througho ut the RIGHT kidney. Consistent with moderate chronic medical renal disease. At this time there is no atrophy or obstruction. 2. The LEFT kidney is not accurately identified by ultrasound. The kidney was seen on a recent CT from 09/23/2023 measuring 10.9 cm in length with multiple ac quired cysts. No obstruction at that time.
[2023-10-13 08:00] VITALS: BP 171/84; PULSE 98; RESP 18; TEMP 36.8; O2SAT 96
[2023-10-13] MEDS: meropenem 1,000 MG in sodium chloride 0.9% (plus) 50 ML 200 MG IV ×2 (09:31→21:08)
[2023-10-13] MEDS: carvedilol 12.5 mg Tablet 25 MG PO ×2 (09:34→18:12)
[2023-10-13] MEDS: amlodipine 10 mg Tablet PO (09:34)
[2023-10-13] MEDS: lisinopril 5 mg Tablet PO (09:34)
[2023-10-13] MEDS: sodium chloride 0.9% 1,000 ML 120 ML IV ×2 (09:35→18:13)
--- NOTE | 2023-10-13 10:35 | PC.CHAP ---
Pastoral Care Encounter/Spiritual Assessment Type of Contact [] Declined hr generalist visit [] Patient/Family/Request visit [] Outpatient visit [] Follow-up visit [] Physician referral [] Code/Alert [x] Routine visit [] Staff referral [] Actively dying [] Patient sleeping [] Family support [] [] Out of room [] Palliative care [] [] Receiving care in room [] Pre-surgical visit [] Trauma [] Long length of stay [] ICU visit [] Other: Relational/Emotional Strength [] Patient feels connected with others/family/visitors/staff [] Distress [] Loneliness/isolation [] Abandonment Spirituality of Patient [x] Person of Namita [] Attends Christianity of their Namita [] Believes in Prayer [] Reads Bible or Church materials [] There are Spiritual issues to be addressed Lockstitch Shoulder Joiner Interventions [x] Prayer [x] Active listening [] Non-anxious presence [] Spiritual/emotional support [] Crisis/trauma care [] Spiritual counseling [] Bereavement support [] Provided bereavement packet [] Provided Bible/devotional materials [] Provided toy/stuffed animal, coloring book to patient or family member [] Provided Communion [] Anointing/[place] [] Salvation [x Completed spiritual assessment [] Other: Impact on Illness or Injury [] Angry [] Fearful [] Anxious [] Often cries [] Exhaustion [] Unable to work [] Unable to attend moravian [] Unable to walk/stand [] Unable to read [] Unable to drive [] Unable to eat/drink [] Unable to sleep [] Unable to be with family [] Patient intubated [] Other: Summary Time spent with patient 10 miin
[2023-10-13 11:45] LABS: Glucose Point of Care 198 mg/dL (70-110)
--- NOTE | 2023-10-13 12:00 | P.PN_ITS ---
Subjective 2 Subjective: No acute overnight events noted. She was seen at bedside this morning, looks more alert awake, able to get into conversation, able to follow commands, was able to give the family history and telling the names of her sons. She complaining of redness and watering in both of her eyes associated with itching. Vitals/I&O/Wt Last Vital Signs Temp 98.2 F 10/13/23 08:00 Pulse 98 10/13/23 08:00 Resp 18 10/13/23 08:00 BP 171/84 10/13/23 08:00 Pulse Ox 96 10/13/23 08:00 O2 Del Method Room Air 10/13/23 08:00 10/12/23 10/13/23 10/13/23 22:59 06:59 14:59 Intake Total 1303.75 / 2886.00 900 / 3786.00 280 / 280 Output Total 300 / 300 450 / 750 Balance 1003.75 / 2586.00 450 / 3036.00 280 / 280 Physical Exam 2 Narrative: She is alert awake oriented x 3, was able to communicate and answer questions appropriately. Both eyes there is edema and watering present. Chest clear to auscultation bilaterally Cardiovascular normal heart sounds no murmurs Abdomen NAD Extremities-no edema noted left lower extremity, left hand swollen but no erythema warmth or tenderness Neurological-no focal sensory or motor deficits noted Urinary Catheter Management: Rodriguez: Cath Placed During This Visit: yes Reason for Continuing Indwelling Catheter: Other Urinary Catheter Date of Insertion: 10/10/23 Urinary Catheter Time of Insertion: 09:12 Data 10/13/23 03:59 10/13/23 03:59 Micro: Microbiology 10/11/23 07:40 Urine Culture - Final Urine,Clean Catch A&P Assessment and plan (1) Altered mental state: (2) Aphasia: (3) Leukocytosis: (4) Conjunctivitis due to adenovirus, both eyes: Plan 77 year old female with past medical history of stroke in 2020, hypertension, diabetes, diverticulosis, osteomyelitis of right foot, CKD, diabetic peripheral neuropathy, multinodular thyroid, coronary artery disease was brought in by EMS for altered mental status last night. She is aphasic and altered, likely secondary to acute stroke. Follow-up Dr. Muñoz As per neurology evaluation patient was not a candidate for thrombolytics Continuous telemetry monitoring [facility] stroke protocol with neurochecks Speech and swallow consult OT/PT consult Failed bedside swallow eval. Aspiration precaution Will check MRI head without contrast. Leukocytosis likely reactive, no active source of infection visible right now. Will hold off on antibiotics. CKD-stable for now. Will monitor. Hold home medications. DVT prophylaxis with SCD Stress ulcer prophylaxis with IV Pepcid 20 mg twice a day NPO for now. unable to assess code status due to absence of family member at bedside, she is full code for now. Plan for 01/07-worsening leukocytosis, blood cultures still pending, will start on broad-spectrum IV meropenem 1 g every 8 hours for now. Bedside swallow eval, if successful will start on clear liquids. Will update family with the current medical status Plan for 10/11-mental status improved since admission yesterday but again today she was seen to be confused, unable to communicate and unable to follow commands. Although altered mental status likely secondary to UTI, she has waxing and waning of AMS Will continue with broad-spectrum coverage with IV meropenem 1 g every 8 hours for now Follow-up final cultures and sensitivities Plan to speak with the family about her baseline. She is on dysphagia level 6 soft diet, passed bedside swallow eval Resumed her home medications amlodipine, carvedilol, and lisinopril. Plan for 10/12-altered mental status resolved She has bilateral conjunctivitis, will do ofloxacin eyedrops both eyes 4 times daily CKD-baseline creatinine was 1.1, worsening to 1.9 likely secondary to UTI and dehydration USG kidneys with bladder done to rule out any obstruction. Will change fluids to IV normal saline at 100 cc/h Continue with IV meropenem 1 g every 8 hours. Anticipatory discharge planning in 24-48 hours Attestations 2 Medical Necessity Statement*: She needs continued hospitalization crossing 2 midnights for management of uti. Has waxing and waning of mental status, hence will continue hospitalization for now. Time Spent in Patient Care: 15 minutes Coding Level of Care Code Acute Code for Chg Fwd Diagnoses Altered mental state R41.82 Aphasia R47.01 Leukocytosis D72.829 Conjunctivitis due to adenovirus, both eyes B30.1 Time Spent (min) 15
[2023-10-13 12:31] VITALS: BP 149/96; PULSE 89; RESP 15; TEMP 37.6; O2SAT 95
[2023-10-13] MEDS: insulin lispro 100 unit/1 mL SUBCUT ×3 (12:45→21:08)
[2023-10-13] MEDS: ofloxacin 0.3% Op Soln 5 mL Btl 2 DROP EYE-BOTH ×3 (12:51→21:31)
[2023-10-13 16:00] VITALS: BP 182/80; PULSE 91; RESP 15; TEMP 37; O2SAT 92
[2023-10-13 17:28] LABS: Glucose Point of Care 179 mg/dL (70-110)
[2023-10-13] MEDS: gabapentin 300 mg Capsule PO (18:12)
[2023-10-13] MEDS: hyDRALAzine 50 mg Tablet 75 MG PO (19:47)
--- NOTE | 2023-10-13 19:49 | PC.NURSE ---
doctor notified on BP 182/80 at 6 pm Received order to give PRN oral Hydralazine 75 mg for SBP>180, DBP>110.
[2023-10-13 20:24] VITALS: BP 182/80; PULSE 76; RESP 22; TEMP 36.8; O2SAT 93
[2023-10-13 20:40] LABS: Glucose Point of Care 186 mg/dL (70-110)
[2023-10-13 22:00] VITALS: PULSE 73
[2023-10-14 00:02] VITALS: BP 166/80; PULSE 82; RESP 18; TEMP 36.5; O2SAT 95
[2023-10-14] MEDS: sodium chloride 0.9% 1,000 ML 120 ML IV (02:46)
[2023-10-14] MEDS: famotidine 20 mg/2 mL INJ IVP (03:37)
[2023-10-14 03:54] LABS: Basophils # 0.2 10^3/uL (0.0-0.1); Basophils % 1.1 %; Eosinophils # 1.1 10^3/uL (0.0-0.8); Eosinophils % 7.1 %; Lymphocytes # 1.1 10^3/uL (0.8-4.8); Lymphocytes % 7.6 %; Mean Corpuscular HGB Conc 28.5 g/dL (30-55); Mean Corpuscular Hemoglobin 19.4 pg (27-33); Mean Platelet Volume 9.7 fL (7.4-10.4); Monocytes % 6.8 %; Neutrophils # 11.36 10^3/uL (1.8-7.7); Neutrophils % 76.1 %; Nucleated Red Blood Cells % 0 %; Platelet Count 509 10^3/cmm (157-399); Red Blood Count 5.88 10^6/uL (3.85-5.65); Red Cell Distribution Width 24.9 % (12.1-15.1); White Blood Count 14.93 10^3/uL (3.29-11.43)
[2023-10-14 04:10] LABS: Anion Gap 13.7 (5-19); Blood Urea Nitrogen 38 mg/dL (8-23); Calcium 8.5 mg/dL (8.5-10.5); Carbon Dioxide 24 mmol/L (22-29); Chloride 97 mmol/L (98-107); Creatinine Clr Calc Pharmacy 37.0894; Glucose 135 mg/dL (65-115); Osmolality Calculated 283 mOsm/kg (285-295); Potassium 3.7 mmol/L (3.5-5.1); Sodium 131 mmol/L (136-145)
[2023-10-14 04:25] VITALS: BP 166/80; PULSE 73; RESP 21
[2023-10-14 06:00] VITALS: PULSE 92; BMI 26.8
[2023-10-14 06:35] LABS: Glucose Point of Care 182 mg/dL (70-110)
[2023-10-14 08:00] VITALS: BP 186/92; PULSE 82; RESP 21; TEMP 36.9; O2SAT 96
[2023-10-14] MEDS: carvedilol 12.5 mg Tablet 25 MG PO (08:21)
[2023-10-14] MEDS: insulin lispro 100 unit/1 mL SUBCUT ×2 (08:21→13:34)
[2023-10-14] MEDS: lisinopril 5 mg Tablet PO (08:21)
[2023-10-14] MEDS: amlodipine 10 mg Tablet PO (08:21)
[2023-10-14] MEDS: hyDRALAzine 50 mg Tablet 75 MG PO ×2 (08:26→15:54)
[2023-10-14] MEDS: meropenem 1,000 MG in sodium chloride 0.9% (plus) 50 ML 200 MG IV (08:32)
[2023-10-14] MEDS: ofloxacin 0.3% Op Soln 5 mL Btl 2 DROP EYE-BOTH ×2 (09:00→13:36)
--- NOTE | 2023-10-14 11:20 | PC.SOCIAL ---
IMM Update Pg. 2 of IMM updated and reviewed with patient, who verbalized understanding. Copy provided.
[2023-10-14 12:00] VITALS: BP 141/83; PULSE 72; RESP 19; TEMP 36.8; O2SAT 93
[2023-10-14 12:05] LABS: Glucose Point of Care 214 mg/dL (70-110)
--- NOTE | 2023-10-14 12:07 | PM.DCS ---
Discharge Providers Date of Admission: 10/10/23 07:23 Date of Discharge: October 14, 2023 Attending Provider at Admission: Mary Jaimes MD Attending Provider at Discharge: Mary Jaimes MD Primary Care Provider: Daniel Mae Diagnoses at Discharge Discharge Diagnosis (1) Altered mental state: Status: Acute (2) Aphasia: Status: Acute (3) Leukocytosis: Status: Acute (4) Conjunctivitis due to adenovirus, both eyes: Status: Acute Reason for Visit Reason for Visit: AMS Brief History: Katy Noble is a 77 year old female with past medical history of stroke in 2020, hypertension, diabetes, diverticulosis, osteomyelitis of right foot, CKD, diabetic peripheral neuropathy, multinodular thyroid, coronary artery disease was brought in by EMS for altered mental status last night. She is aphasic and altered, unable to provide significant history. Family not present at bedside, tried calling but no answer. As per ER physician she was able to move all extremities but unable to answer any questions or really formulate sentences. There is no history of fever, cold, cough, urinary or bowel complaints. She was admitted few weeks ago for UTI. To add up, as per neurology note, she was observed to have altered mental status and left-sided weakness but he has been. Stroke hold initiated. Seen by neurology Dr. Muñoz, CT head was negative for any acute intracranial findings and CT angiogram of head and neck performed which showed Atherosclerotic plaque of the cavernous segments of the internal carotid arteries produces moderate to severe vascular narrowing. He recommended for [facility] stroke protocol with neurochecks, antiplatelets and lipid-lowering agent. In ER she was found to have WBC count of 19.8 with left shift, creatinine of 1.2 at baseline, and UA negative for UTI. EKG was normal sinus rhythm with left axis deviation no acute ST-T changes 2 D ECHO 09/21/23 Normal left ventricular size and systolic function, EF 78%. Mild to moderate left ventricular hypertrophy. No regional wall motion abnormalities. Grade I/IV diastolic dysfunction (abnormal relaxation filling pattern), normal to mildly elevated filling pressures. Mildly increased left atrial size. Mild mitral annular calcification. Mild mitral valve regurgitation. Some features of aortic valve sclerosis. Trace tricuspid valve regurgitation. Estimated pulmonary artery peak systolic pressure 32 mmHg There is no pericardial effusion. There are no intracardiac masses. No similar previous studies are available for comparison Hospital Course Hospital Course Since she presented with altered mental status, stroke code called in ER. She was consulted by neurology Dr. Muñoz and as per him she was not a candidate for thrombolytics. She also had an MRI brain without contrast done which did not show any acute infarct. She was found to have UTI and started on IV antibiotics which were switched to IV meropenem for worsening leukocytosis. She had a waxing and waning of her altered mental status hence started on IV fluids and continued with IV antibiotics. Urine culture is negative so far blood cultures are negative so far. She has been alert awake oriented x 3, able to communicate and answer questions appropriately for 2 days with improving leukocytosis and negative urine cultures. During hospitalization she had a worsening of her renal function likely secondary to dehydration and UTI. Ultrasound kidneys with bladder done showed no obstruction and IV fluids normal saline increased to 120 mL/h. Her creatinine improved to 1.6 today. During hospitalization she had bilateral conjunctivitis and was started on ofloxacin eyedrops 4 times a day. She has been afebrile, hemodynamically stable and is ready to go home with p.o. antibiotics Levaquin 750 mg daily for 7 days and follow-up with PCP in 1 week as an outpatient. She will also have outpatient PT done. Physical Exam Narrative: She is alert awake oriented x 3, was able to communicate and answer questions appropriately. Both eyes there is edema and watering present which is getting better Chest clear to auscultation bilaterally Cardiovascular normal heart sounds no murmurs Abdomen NAD Extremities-no edema noted left lower extremity, left hand swollen and improvingbut no erythema warmth or tenderness Neurological-no focal sensory or motor deficits noted Urinary Catheter Management: Rodriguez: Cath Placed During This Visit: yes Reason for Continuing Indwelling Catheter: Accurate Measurement of Urinary Output in Critically Ill Patients Urinary Catheter Date of Insertion: 10/10/23 Urinary Catheter Time of Insertion: 09:12 Discharge Data Studies Completed and Pending Completed Studies During Hospitalization Category Date Time Status CT angio headneck* [id number] Stat Cat Scan 10/10/23 05:[address] head thrombolytic [id number] Stat Cat Scan 10/10/23 05:07 Completed XR chest 1V portable [id number] Stat Exams 10/10/23 05:07 Completed XR knee LT 1-2V [id number] Routine Exams 10/11/23 12:26 Completed MR head wo con* [id number] Stat MRI 10/10/23 14:32 Completed US renal BI* [id number] Stat Ultrasound 10/13/23 07:12 Completed Pending at discharge Category Date Time Status Blood Culture Stat Lab 10/10/23 07:08 Results Radiology Impressions Chest X-Ray 10/10/23 05:07 IMPRESSION: 1. Cardiomegaly with mild congestion. 2. Linear opacity left lung base likely related to atelectasis or scar tissue Head CT 10/10/23 05:07 IMPRESSION: No acute intracranial abnormality. ASSESSMENT: ASPECTS ([place] Stroke Program Early CT Score) is 10. Head/Neck CTA 10/10/23 05:07 IMPRESSION: Atherosclerotic plaque of the cavernous segments of the internal carotid arteries produces moderate to severe vascular narrowing. IMPRESSION: Atherosclerotic plaque of the carotid bifurcations and proximal internal carotid arteries produces moderate to severe vascular narrowing. REFERENCES: NASCET CRITERIA. The degree of stenosis in the cervical segment of the internal carotid artery is based on NASCET criteria. Normal is no stenosis. Mild is less than 50% stenosis. Moderate is 50-69% stenosis. Severe is 70% to 99% stenosis. Total occlusion is no detectable patent lumen. Head MRI 10/10/23 14:32 IMPRESSION: No acute intracranial abnormality. Knee X-Ray 10/11/23 12:26 IMPRESSION: Degenerative change. No fracture or acute osseous abnormality. Renal Ultrasound 10/13/23 07:12 IMPRESSION: 1. Poor cortical measured differentiation with increased echogenicity throughout the RIGHT kidney. Consistent with moderate chronic medical renal disease. At this time there is no atrophy or obstruction. 2. The LEFT kidney is not accurately identified by ultrasound. The kidney was seen on a recent CT from 09/23/2023 measuring 10.9 cm in length with multiple acquired cysts. No obstruction at that time. Laboratory Results WBC 14.93 10^3/uL (3.29-11.43) H 10/14/23 03:33 RBC 5.88 10^6/uL (3.85-5.65) H 10/14/23 03:33 Hgb 11.40 g/dL (11.27-16.99) 10/14/23 03:33 Hct 40.0 % (36-47) 10/14/23 03:33 MCV 68.0 fl (85-98) L 10/14/23 03:33 MCH 19.4 pg (27-33) L 10/14/23 03:33 MCHC 28.5 g/dL (30-55) L 10/14/23 03:33 RDW 24.9 % (12.1-15.1) H 10/14/23 03:33 Plt Count 509 10^3/cmm (157-399) H 10/14/23 03:33 MPV 9.7 fL (7.4-10.4) 10/14/23 03:33 Neut % (Auto) 76.1 % 10/14/23 03:33 Lymph % (Auto) 7.6 % 10/14/23 03:33 [place] % (Auto) 6.8 % 10/14/23 03:33 Eos % (Auto) 7.1 % 10/14/23 03:33 Baso % (Auto) 1.1 % 10/14/23 03:33 Neut # (Auto) 11.36 10^3/uL (1.8-7.7) H 10/14/23 03:33 Lymph # (Auto) 1.1 10^3/uL (0.8-4.8) 10/14/23 03:33 [place] # (Auto) 1.0 10^3/uL (0.2-0.9) H 10/14/23 03:33 Eos # (Auto) 1.1 10^3/uL (0.0-0.8) H 10/14/23 03:33 Baso # (Auto) 0.2 10^3/uL (0.0-0.1) H 10/14/23 03:33 Nucleated RBC % (auto) 0 % 10/14/23 03:33 Nucleated RBCs # 0.0 /100WBC 10/14/23 03:33 PT 13.30 SECONDS (12.1-14.9) 10/10/23 06:00 INR 0.98 (0.8-1.2) 10/10/23 06:00 APTT 29.5 SECONDS (23.9-36.7) 10/10/23 06:00 Sodium 131 mmol/L (136-145) L 10/14/23 03:33 Potassium 3.7 mmol/L (3.5-5.1) 10/14/23 03:33 Chloride 97 mmol/L (98-107) L 10/14/23 03:33 Carbon Dioxide 24 mmol/L (22-29) 10/14/23 03:33 Anion Gap 13.7 (5-19) 10/14/23 03:33 BUN 38 mg/dL (8-23) H 10/14/23 03:33 Creatinine 1.6 mg/dL (0.5-0.9) H 10/14/23 03:33 GFR Calculation Not Reportable 10/14/23 03:33 Glucose 135 mg/dL (65-115) H 10/14/23 03:33 POC Glucose 214 mg/dL (70-110) H 10/14/23 12:03 Calculated Osmolality 283 mOsm/kg (285-295) L 10/14/23 03:33 Lactic Acid 0.7 mmol/L (0.5-2.2) 10/10/23 06:00 Calcium 8.5 mg/dL (8.5-10.5) 10/14/23 03:33 Total Bilirubin 0.4 mg/dL (0.15-1.2) 10/13/23 03:59 AST 14 U/L (0-32) 10/13/23 03:59 ALT < 5 U/L (0-33) 10/13/23 03:59 Alkaline Phosphatase 116 U/L (35-105) H 10/13/23 03:59 Total Protein 6.0 g/dL (6.6-8.7) L 10/13/23 03:59 Albumin 3.1 g/dL (3.5-5.2) L 10/13/23 03:59 Globulin 2.9 g/dL (1.3-4.6) 10/13/23 03:59 Triglycerides 165 mg/dL (0-150) H 10/11/23 04:14 Cholesterol 170 mg/dL (0-200) 10/11/23 04:14 LDL Cholesterol, Calc 80 mg/dL (50-129) 10/11/23 04:14 HDL Cholesterol 57 mg/dL (60-100) L 10/11/23 04:14 LDL/HDL Ratio 1.40 RATIO (0.00-3.22) 10/11/23 04:14 Cholesterol/HDL Ratio 2.98 mg/dL (0.0-4.40) 10/11/23 04:14 TSH 0.70 uIU/mL (0.27-4.20) 10/11/23 04:14 Urine Color Yellow (Yellow) 10/11/23 07:40 Urine Appearance Clear (CLEAR) 10/11/23 07:40 Urine pH 7 (5-7) 10/11/23 07:40 Ur Specific [place] 1.015 (1.005-1.030) 10/11/23 07:40 Urine Protein 3+ (Negative) H 10/11/23 07:40 Urine Glucose (UA) 2+ (Normal) H 10/11/23 07:40 Urine Ketones 1+ (Negative) H 10/11/23 07:40 Urine Blood 2+ (Negative) H 10/11/23 07:40 Urine Nitrate Negative (Negative) 10/11/23 07:40 Urine Bilirubin Neg (Negative) 10/11/23 07:40 Urine Urobilinogen Norm mg/dL (Negative) 10/11/23 07:40 Ur Leukocyte Esterase Trace (Negative) H 10/11/23 07:40 Urine RBC 0-4 /hpf (0-2) H 10/11/23 07:40 Urine WBC 15-25 /hpf (0-5) H 10/11/23 07:40 Ur Squamous Epith Cells 0-4 /hpf (0-5) H 10/11/23 07:40 Amorphous Sediment Not Reportable 10/11/23 07:40 Urine Bacteria 1+ /hpf (NONE) H 10/11/23 07:40 Hyaline Casts 0-4 /lpf H 10/10/23 05:56 Urine Mucus 1+ /hpf 10/10/23 05:56 Urine Opiates Screen Negative ng/mL (Negative) 10/10/23 05:56 Ur Barbiturates Screen Negative ng/mL (Negative) 10/10/23 05:56 Ur Phencyclidine Scrn Negative ng/mL (Negative) 10/10/23 05:56 Ur Amphetamines Screen Negative ng/mL (Negative) 10/10/23 05:56 U Benzodiazepines Scrn Negative ng/mL (Negative) 10/10/23 05:56 Urine Cocaine Screen Negative ng/mL (Negative) 10/10/23 05:56 U Marijuana (THC) Screen Negative ng/mL (Negative) 10/10/23 05:56 Vitals Last Vital Signs Temp 98.3 F 10/14/23 12:00 Pulse 72 10/14/23 12:00 Resp 19 H 10/14/23 12:00 BP 141/83 10/14/23 12:00 Pulse Ox 93 10/14/23 12:00 O2 Del Method Room Air 10/14/23 12:00 Discharge Plan Discharge Patient Disposition: Home Condition: Stable Prescriptions: New levofloxacin 750 mg tablet 750 mg PO DAILY 7 Days Qty: 7 0RF ofloxacin 0.3 % Drops 2 drp eye-both QID 7 Days Qty: 15 0RF Continued insulin degludec [Tresiba FlexTouch U-200] 200 unit/mL (3 mL) insulin pen 25 unit SUBCUT QAM amlodipine 10 mg tablet 10 mg PO DAILY Qty: 30 0RF cyanocobalamin (vitamin B-12) [Vitamin B-12] 2,500 mcg Tablet, Sublingual 2,500 mcg SUBLINGUAL DAILY acetaminophen 500 mg Tablet 500 mg PO Q6H PRN (Reason: pain) famotidine [Pepcid] 20 mg Tablet 20 mg PO BID gabapentin 300 mg Capsule 300 mg PO BEDTIME hydroxyurea 500 mg capsule 500 mg PO EVERY OTHER DAY atorvastatin 20 mg tablet 20 mg PO DAILY aspirin 81 mg tablet,delayed release (DR/EC) 81 mg PO DAILY Qty: 90 0RF calcitriol 0.25 mcg Capsule 0.25 mcg PO DAILY loperamide [Imodium A-D] 2 mg capsule 2 mg PO Q6H PRN (Reason: loose stool) Qty: 10 0RF sertraline 100 mg tablet 100 mg PO DAILY nitroglycerin 0.4 mg tablet, sublingual See Rx Instructions .ROUTE .COMPLEX Rx Instructions: PLACE ONE TABLED UNDER TONGUE EVERY 5 MINUTES NEEDED FOR CHEST PAIN lisinopril 5 mg tablet 5 mg PO DAILY hydralazine 25 mg Tablet 75 mg PO TID Qty: 90 0RF carvedilol 12.5 mg Tablet 25 mg PO BID Rx Instructions: must administer with a meal/food No Action (DME) CHILKAT BOOT to RIGHT See Rx Instructions .Route .MEDSUPPLY Qty: 1 0RF Rx Instructions: As directed by [employer] (DME) Short CAM Boot to the Left Medium See Rx Instructions .Route .MEDSUPPLY Qty: 1 0RF Rx Instructions: As directed Discharge Orders: Discharge Order (Routine); Ordered 10/14/23 Ordered By: Mary Jaimes Other Ambulatory Orders: Physical Therapy Eval and Treat Outpatient (Order) Timeframe: 3 Weeks Facility: [facility] - Location: Physical Therapy Ordered By: Mary Jaimes Referrals: [facility] [Other] (Please call Jennifer at [facility] for your appt. date and time if you have not heard from her by tomorrow 10/15/23. Her phone number is [phone] option [phone]. ) Daniel Mae [Primary Care Provider] - 4-7 days Discharge Diet: Regular Discharge Activity: Increase activity as tolerated Patient Instructions: Opioid Safety Discharge Attestations Time Spent in Discharge Care*: less than 30 min Status at Discharge: Cognitive status at discharge: cognitively intact, Behavioral status at discharge: cooperative, Quality Metrics Clinical Quality Measures [ No reported AMI, CVA or VTE this stay] Coding Level of Care Code Acute Code for Chg Fwd Diagnoses Altered mental state R41.82 Aphasia R47.01 Leukocytosis D72.829 Conjunctivitis due to adenovirus, both eyes B30.1 Time Spent (min) 20
== END 2023-10-14 15:57 | disposition home or self-care (01) | DRG 690 ==
LOC: ER 06:50 → CSU 08:08
PROVIDERS: Emergency Medicine; Admitting Provider Internal Medicine; Emergency Provider Family Medicine; PCP Family Medicine; Visit Provider Internal Medicine
DX: N39.0 Urinary tract infection, site not specified (principal); R47.01 Aphasia; E86.0 Dehydration; B30.1 Conjunctivitis due to adenovirus; D72.829 Elevated white blood cell count, unspecified; R41.82 Altered mental status, unspecified; Z86.73 Personal history of transient ischemic attack (TIA), and cerebral infarction without residual deficits; I10 Essential (primary) hypertension; E11.22 Type 2 diabetes mellitus with diabetic chronic kidney disease; N18.9 Chronic kidney disease, unspecified; I25.10 Atherosclerotic heart disease of native coronary artery without angina pectoris; Z79.4 Long term (current) use of insulin; D69.6 Thrombocytopenia, unspecified; E11.42 Type 2 diabetes mellitus with diabetic polyneuropathy
CPT/HCPCS: 36415; 36416; 51702; 70450; 70496; 70498; 70551; 71045; 73560; 76770; 80048; 80053; 80061; 80306; 81001; 82962; 83605; 84443; 85025; 85610; 85730; 87040; 87086; 92507; 92523; 92526; 92610; 93005; 94664; 96365; 96372; 96375; 96376; 97110; 97162; 97165; 97530; 97535; 99285; 99291; A9270; J0360; J0696; J1815; J2185; J2405; J3490; J7030; J7799; Q9967

== ENCOUNTER → 2023-12-17 10:56 | Outpatient (BNVA) | payer MEDICARE, SELFPAY | PROVIDERS: PCP Family Medicine; Visit Provider Podiatrist Foot & Ankle Surgery | DX: E11.621 Type 2 diabetes mellitus with foot ulcer; L97.513 Non-pressure chronic ulcer of other part of right foot with necrosis of muscle; L03.115 Cellulitis of right lower limb; Z79.4 Long term (current) use of insulin | CPT/HCPCS: 73630; 87070; 87075; 87077; 87186; 87205 ==

== ENCOUNTER 2023-12-17 14:11 | Outpatient (CLI) | payer MEDICARE, SELFPAY | END 2023-12-17 14:12 | disposition home or self-care (01) | LOC: SPT 14:12 | PROVIDERS: PCP Family Medicine; Visit Provider Podiatrist Foot & Ankle Surgery | DX: Z46.89 Encounter for fitting and adjustment of other specified devices (principal); L97.512 Non-pressure chronic ulcer of other part of right foot with fat layer exposed | CPT/HCPCS: L4361 ==

== ENCOUNTER → 2023-12-21 08:42 | Outpatient (BNVA) | payer MEDICARE, SELFPAY | PROVIDERS: PCP Family Medicine; Visit Provider Podiatrist Foot & Ankle Surgery | DX: L97.512 Non-pressure chronic ulcer of other part of right foot with fat layer exposed (principal); E11.42 Type 2 diabetes mellitus with diabetic polyneuropathy; M14.671 Charcot's joint, right ankle and foot; E11.621 Type 2 diabetes mellitus with foot ulcer; Z79.4 Long term (current) use of insulin | CPT/HCPCS: 99213 ==

== ENCOUNTER → 2023-12-24 09:26 | Outpatient (BNVA) | payer MEDICARE, SELFPAY | PROVIDERS: PCP Family Medicine; Visit Provider Podiatrist Foot & Ankle Surgery | DX: L97.512 Non-pressure chronic ulcer of other part of right foot with fat layer exposed (principal); E11.42 Type 2 diabetes mellitus with diabetic polyneuropathy; M14.671 Charcot's joint, right ankle and foot; E11.621 Type 2 diabetes mellitus with foot ulcer; Z79.4 Long term (current) use of insulin | CPT/HCPCS: 99213 ==

== ENCOUNTER → 2023-12-29 14:20 | Outpatient (BNVA) | payer MEDICARE, SELFPAY | PROVIDERS: PCP Family Medicine; Visit Provider Podiatrist Foot & Ankle Surgery | DX: M14.671 Charcot's joint, right ankle and foot (principal); L97.512 Non-pressure chronic ulcer of other part of right foot with fat layer exposed; E11.42 Type 2 diabetes mellitus with diabetic polyneuropathy | CPT/HCPCS: 36415; 80053; 85025; 85651; 86140 ==

== ENCOUNTER → 2024-01-13 15:09 | Outpatient (BNVA) | payer MEDICARE, SELFPAY | PROVIDERS: PCP Family Medicine; Visit Provider Podiatrist Foot & Ankle Surgery | DX: L97.414 Non-pressure chronic ulcer of right heel and midfoot with necrosis of bone (principal) | CPT/HCPCS: 87070; 87075; 87205 ==

== ENCOUNTER 2024-01-14 13:54 | Inpatient (IN) | payer MEDICARE, SELFPAY ==
[2024-01-14] VITALS (9 sets, daily range): BP systolic 154–206; BP diastolic 75–101; PULSE 70–93; RESP 16–20; TEMP 36.7; O2SAT 94–98
[2024-01-14 15:24] LABS: Basophils # 0.1 10^3/uL (0.0-0.1); Basophils % 0.8 %; Eosinophils # 0.3 10^3/uL (0.0-0.8); Eosinophils % 2.3 %; Hematocrit 46.3 % (36-47); Lymphocytes # 0.9 10^3/uL (0.8-4.8); Lymphocytes % 6.6 %; Mean Corpuscular HGB Conc 30.2 g/dL (30-55); Mean Corpuscular Volume 79.4 fl (85-98); Monocytes # 0.8 10^3/uL (0.2-0.9); Monocytes % 6.2 %; Neutrophils # 10.95 10^3/uL (1.8-7.7); Neutrophils % 82.3 %; Nucleated Red Blood Cells % 0 %; Platelet Count 448 10^3/cmm (157-399); Red Blood Count 5.83 10^6/uL (3.85-5.65)
[2024-01-14 15:37] LABS: Alanine Aminotransferase 6 U/L (0-33); Albumin Level 3.3 g/dL (3.5-5.2); Alkaline Phosphatase 108 U/L (35-105); Anion Gap 13.1 (5-19); Aspartate Amino Transferase 12 U/L (0-32); Blood Urea Nitrogen 35 mg/dL (8-23); Calcium 9.4 mg/dL (8.5-10.5); Carbon Dioxide 26 mmol/L (22-29); Chloride 98 mmol/L (98-107); Creatinine Clr Calc Pharmacy 41.4323; Globulin 3.1 g/dL (1.3-4.6); Glucose 203 mg/dL (65-115); Lipase 17 U/L (13-60); Osmolality Calculated 290 mOsm/kg (285-295); Potassium 4.1 mmol/L (3.5-5.1); Sodium 133 mmol/L (136-145); Total Bilirubin 0.3 mg/dL (0.15-1.2); Total Protein 6.4 g/dL (6.6-8.7)
--- NOTE | 2024-01-14 17:23 | XRR_ITS ---
PROCEDURE INFORMATION: Exam: XR Right Foot Exam date and time: 01/14/2024 5:27 PM Age: 78 years old Clinical indication: Other: Ulcer TECHNIQUE: Imaging protocol: Radiologic exam of the right foot. Views: 3 or more views. COMPARISON: CR XR foot RT min 3V* [id number] 12/17/2023 11:02 AM FINDINGS: Bones/joints: Severe advanced neuropathic changes of the midfoot with chronic fractures, malalignment and prominent solid periosteal reaction. No evidence of acute osseous erosion, fracture or subluxation. Soft tissues: Soft tissue edema/ulceration of the lateral forefoot. There is soft tissue air in the region, likely related to ulceration. Gas-forming infection would be difficult to exclude. XR/XR foot RT min 3V* [id number] IMPRESSION: 1. No evidence of acute osseous erosion, fracture or subluxation. 2. Soft tissue edema/ulceration of the lateral forefoot. There is soft tissue air in the region, likely related to ulceration. Gas-forming infection would be difficult to exclude. If there is ongoing clinical concern for infection, consider correlation with MRI.
--- NOTE | 2024-01-14 17:29 | ED_ITS ---
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 Nieto yesterday is concerned she may be developing osteomyelitis and informed her she is worsening come to ER states she has had some worsening pain in that foot. States she is also had vomiting along with dizziness last 2 days states she feels like the room spinning is much worse with head movement and ambulation. Denies any abdominal pain or headache Associated symptoms: Denies chest pain, chills, headache(s), nausea or vomiting Related Data Home Medications Medication Instructions Recorded Confirmed acetaminophen 500 mg tablet 500 mg PO Q6H PRN pain 05/31/20 01/13/24 famotidine 20 mg tablet (Pepcid) 20 mg PO BID 05/31/20 01/13/24 gabapentin 300 mg capsule 300 mg PO BEDTIME 05/31/20 01/13/24 insulin degludec 200 unit/mL (3 25 unit SUBCUT QAM 06/05/20 01/13/24 mL) subcutaneous pen (Tresiba FlexTouch U-200 insulin) hydroxyurea 500 mg capsule 500 mg PO EVERY OTHER DAY 12/12/20 01/13/24 atorvastatin 20 mg tablet 20 mg PO DAILY 04/07/21 01/13/24 calcitriol 0.25 mcg capsule 0.25 mcg PO DAILY 09/17/21 01/13/24 lisinopril 5 mg tablet 5 mg PO DAILY 09/21/23 01/13/24 nitroglycerin 0.4 mg sublingual See Rx Instructions .Route .COMPLEX 09/21/23 01/13/24 tablet sertraline 100 mg tablet 100 mg PO DAILY 09/21/23 01/13/24 carvedilol 12.5 mg tablet 25 mg PO BID 10/10/23 01/13/24 Previous Rx's Medication Instructions Recorded aspirin 81 mg tablet,delayed 81 mg PO DAILY #90 tabs 04/13/21 release amlodipine 10 mg tablet 10 mg PO DAILY #30 tabs 04/29/21 loperamide 2 mg capsule (Imodium 2 mg PO Q6H PRN loose stool #10 09/22/21 A-D) caps hydralazine 25 mg tablet 75 mg (3 x 25 mg) PO TID #90 tabs 09/25/23 CAM walker #1 ea 12/17/23 levofloxacin 750 mg tablet 750 mg PO DAILY 7 days #7 tabs 12/21/23 levofloxacin 750 mg tablet 750 mg PO DAILY 7 days #7 tabs 12/29/23 Allergies Allergy/AdvReac Type Severity Reaction Status Date / Time codeine Allergy ALGY-Hives Verified 01/14/24 14:05 morphine Allergy Unknown Verified 01/14/24 14:05 Penicillins Allergy Unknown Verified 01/14/24 14:05 Sulfa (Sulfonamide Allergy Unknown Verified 01/14/24 14:05 Antibiotics) Review of Systems 2 Const: Denies: fever(s), chills, body aches or change in appetite Eyes: Denies: blurry vision or eye discomfort ENMT: Denies: throat pain or dental pain Card: Denies: chest pain Resp: Denies: dyspnea GI: Denies: abdominal pain, nausea, vomiting or diarrhea Musc: Reports: extremity pain; Denies: neck pain or back pain Skin/Breast: Denies: rash Neuro: Reports: dizziness and vertigo; Denies: headache(s) PFSH ED 2 PFSH: Medical History Charcot's joint, right ankle and foot Leukocytosis Depression GERD (gastroesophageal reflux disease) Thrombocytosis Diabetic peripheral neuropathy associated with type 2 diabetes mellitus Carotid artery stenosis Carotid artery disease Acute CVA (cerebrovascular accident) UTI (urinary tract infection) Aphasia Acute kidney injury superimposed on chronic kidney disease Sepsis Aspiration pneumonitis Chronic kidney disease PUD (peptic ulcer disease) Hypertension Stroke Charcot foot due to diabetes mellitus Coronary artery disease Osteomyelitis Diabetes Diabetic foot ulcer History of hyperbaric oxygen therapy Acute cystitis Cerebrovascular accident Patient with ongoing aphasia Surgical History S/P PICC central line placement Patient had tunneled left subclavian central line for IV antibiotics for osteomyelitis which was removed by Dr. Zelaya 2016 S/P carotid endarterectomy Family History Other Family history non-contributory Social History Smoking and tobacco/nicotine status: never used tobacco/nicotine Alcohol intake: never Substance/Drug Use: never Household members: family Housing: House Physical Exam 2 Const: COMMON NORMALS: no acute distress, patient oriented x3, healthy appearing and alert ORIENTATION/CONSCIOUSNESS: Yes oriented to person, Yes oriented to place and Yes oriented to time HENMT: COMMON NORMALS: normocephalic and atraumatic HEAD & SCALP: n ormocephalic and atraumatic Eye: OTHER: Nystagmus when looking to the right gets dizzy with looking as well Neck/C-Spine: COMMON NORMALS: full ROM and supple Chest: COMMONS NORMALS: normal inspection of the chest Resp: COMMON NORMALS: normal respiratory effort Cardio: COMMON NORMALS: regular rate, regular rhythm and No murmurs present (Cardio) RATE: regular rate RHYTHM: regular rhythm GI: COMMON NORMALS: Normal to inspection, nondistended, normoactive bowel sounds present, Soft to palpation, non-tender and no masses PALPATION: Yes Soft to palpation Extremity: COMMON NORMALS: full ROM NARRATIVE EXTREMITY EXAM: l ulcer noted to the bottom of the right foot some erythema Neuro: COMMON NORMALS: patient oriented x3, moves all extremities and no focal motor deficits SENSORIUM/ORIENTATION: Yes alert, Yes oriented to person, Yes oriented to place and Yes oriented to time CRANIAL NERVES: Yes CN normal except as noted SPEECH: speech normal MOTOR EXAM: 5/5 motor strength present throughout Psych: COMMON NORMALS: mental status grossly normal, Normal thought process present and cooperative THOUGHT PROCESS: Normal thought process present Skin: COMMON NORMALS: no rashes or lesions noted and no wounds GENERAL SKIN EXAM: no rashes or lesions noted Course 2 Vital Signs: Vital signs: Vital Signs Temperature 98.1 F 01/14/24 14:00 Pulse Rate 77 01/14/24 18:21 Respiratory Rate 16 01/14/24 14:00 Blood Pressure 177/75 01/14/24 14:00 Pulse Oximetry 96 01/14/24 18:21 Oxygen Delivery Me thod Room Air 01/14/24 18:21 MDM - Dizziness Medical Decision Making Patient presents for diabetic foot ulcer possible osteomyelitis patient seen by Dr. Nieto planning on taking the OR tomorrow to debride she had some vertigo for days likely peripheral in nature head CT is normal patient's placed on antibiotics Medical Records I reviewed the patient's medical records. Lab Data I reviewed the patient's lab results. 01/14/24 15:12 01/14/24 15:12 Radiology Impressions Foot X-Ray 01/14/24 17:23 IMPRESSION: 1. No evidence of acute osseous erosion, fracture or subluxation. 2. Soft tissue edema/ulceration of the lateral forefoot. There is soft tissue air in the region, likely related to ulceration. Gas-forming infection would be difficult to exclude. If there is ongoing clinical concern for infection, consider correlation with MRI. Head CT 01/14/24 17:39 IMPRESSION: 1. No acute intracranial abnormality. Laboratory Results WBC 13.30 10^3/uL (3.29-11.43) H 01/14/24 15:12 RBC 5.83 10^6/uL (3.85-5.65) H 01/14/24 15:12 Hgb 14.00 g/dL (11.27-16.99) 01/14/24 15:12 Hct 46.3 % (36-47) 01/14/24 15:12 MCV 79.4 fl (85-98) L 01/14/24 15:12 MCH 24.0 pg (27-33) L 01/14/24 15:12 MCHC 30.2 g/dL (30-55) 01/14/24 15:12 RDW 32.0 % (12.1-15.1) H 01/14/24 15:12 Plt Count 448 10^3/cmm (157-399) H 01/14/24 15:12 MPV 9.0 fL (7.4-10.4) 01/14/24 15:12 Neut % (Auto) 82.3 % 01/14/24 15:12 Lymph % (Auto) 6.6 % 01/14/24 15:12 Edmunds % (Auto) 6.2 % 01/14/24 15:12 Eos % (Auto) 2.3 % 01/14/24 15:12 Baso % (Auto) 0.8 % 01/14/24 15:12 Neut # (Auto) 10.95 10^3/uL (1.8-7.7) H 01/14/24 15:12 Lymph # (Auto) 0.9 10^3/uL (0.8-4.8) 01/14/24 15:12 Edmunds # (Auto) 0.8 10^3/uL (0.2-0.9) 01/14/24 15:12 Eos # (Auto) 0.3 10^3/uL (0.0-0.8) 01/14/24 15:12 Baso # (Auto) 0.1 10^3/uL (0.0-0.1) 01/14/24 15:12 Nucleated RBC % (auto) 0 % 01/14/24 15:12 Nucleated RBCs # 0.0 /100WBC 01/14/24 15:12 ESR 31 mm/hr (0-15) H 01/14/24 15:12 Sodium 133 mmol/L (136-145) L 01/14/24 15:12 Potassium 4.1 mmol/L (3.5-5.1) 01/14/24 15:12 Chloride 98 mmol/L (98-107) 01/14/24 15:12 Carbon Dioxide 26 mmol/L (22-29) 01/14/24 15:12 Anion Gap 13.1 (5-19) 01/14/24 15:12 BUN 35 mg/dL (8-23) H 01/14/24 15:12 Creatinine 1.4 mg/dL (0.5-0.9) H 01/14/24 15:12 GFR Calculation Not Reportable 01/14/24 15:12 Glucose 203 mg/dL (65-115) H 01/14/24 15:12 Calculated Osmolality 290 mOsm/kg (285-295) 01/14/24 15:12 Calcium 9.4 mg/dL (8.5-10.5) 01/14/24 15:12 Total Bilirubin 0.3 mg/dL (0.15-1.2) 01/14/24 15:12 AST 12 U/L (0-32) 01/14/24 15:12 ALT 6 U/L (0-33) 01/14/24 15:12 Alkaline Phosphatase 108 U/L (35-105) H 01/14/24 15:12 C-Reactive Protein 8.7 mg/L (0.0-4.9) H 01/14/24 15:12 Total Protein 6.4 g/dL (6.6-8.7) L 01/14/24 15:12 Albumin 3.3 g/dL (3.5-5.2) L 01/14/24 15:12 Globulin 3.1 g/dL (1.3-4.6) 01/14/24 15:12 Lipase 17 U/L (13-60) 01/14/24 15:12 All radiology interpretation(s) finalized by discharge Discharge Plan Discharge Patient Disposition: Admitted As Inpatient Clinical Impression: Diabetic foot ulcer, Vertigo Condition: Stable Prescriptions: No Action (DME) SONIA anne See Rx Instructions .Route .MEDSUPPLY Qty: 1 0RF Rx Instructions: As directed levofloxacin 750 mg tablet 750 mg PO DAILY 7 Days Qty: 7 0RF levofloxacin 750 mg tablet 750 mg PO DAILY 7 Days Qty: 7 0RF insulin degludec [Tresiba FlexTouch U-200] 200 unit/mL (3 mL) insulin pen 25 unit SUBCUT QAM amlodipine 10 mg tablet 10 mg PO DAILY Qty: 30 0RF acetaminophen 500 mg Tablet 500 mg PO Q6H PRN (Reason: pain) famotidine [Pepcid] 20 mg Tablet 20 mg PO BID gabapentin 300 mg Capsule 300 mg PO BEDTIME hydroxyurea 500 mg capsule 500 mg PO EVERY OTHER DAY atorvastatin 20 mg tablet 20 mg PO DAILY aspirin 81 mg tablet,delayed release (DR/EC) 81 mg PO DAILY Qty: 90 0RF calcitriol 0.25 mcg Capsule 0.25 mcg PO DAILY loperamide [Imodium A-D] 2 mg capsule 2 mg PO Q6H PRN (Reason: loose stool) Qty: 10 0RF sertraline 100 mg tablet 100 mg PO DAILY nitroglycerin 0.4 mg tablet, sublingual See Rx Instructions .ROUTE .COMPLEX Rx Instructions: PLACE ONE TABLED UNDER TONGUE EVERY 5 MINUTES NEEDED FOR CHEST PAIN lisinopril 5 mg tablet 5 mg PO DAILY hydralazine 25 mg Tablet 75 mg PO TID Qty: 90 0RF carvedilol 12.5 mg Tablet 25 mg PO BID Rx Instructions: must administer with a meal/food Referrals: Daniel Mae [Primary Care Provider] - Coding Level of Care Code ED Senior Mechanical Technician for [facility]
[2024-01-14 17:31] LABS: Erythrocyte Sedimentation Rate 31 mm/hr (0-15)
--- NOTE | 2024-01-14 17:39 | CTR_ITS ---
PROCEDURE INFORMATION: Exam: CT Head Without Contrast Exam date and time: 01/14/2024 5:55 PM Age: 78 years old Clinical indication: Dizziness; Additional info: Dzziness TECHNIQUE: Imaging protocol: Computed tomography of the head without contrast. Radiation optimization: All CT scans at this facility use at least one of these dose optimization techniques: automated exposure control; mA and/or kV adjustment per patient size (includes targeted exams where dose is matched to clinical indication); or iterative reconstruction. COMPARISON: MR head wo con* [id number] 10/10/2023 3:21 PM RADIATION DOSE METRICS: Total DLP (mGy-cm): 1266 FINDINGS: Brain: No evidence of intra-axial or extra-axial hemorrhage. No mass effect or midline shift. Zuniga-white differentiation is maintained. Basilar cisterns are patent. Cerebral ventricles: No hydrocephalus. Paranasal sinuses: The visualized paranasal sinuses are well aerated. Mastoid air cells: The visualized mastoids and middle ears are clear. Bones: Calvarium is intact. No evidence of acute fracture. Soft tissues: No gross soft tissue abnormality. CT/CT head wo con* [id number] IMPRESSION: 1. No acute intracranial abnormality.
[2024-01-14 17:49] LABS: C Reactive Protein 8.7 mg/L (0.0-4.9)
--- NOTE | 2024-01-14 18:06 | P.CONIM_ITS ---
Providers/Reason For Consult 2 Consulting Physician/Specialty*: Hank Nieto D.P.M. Reason for Consult*: Diabetic ulcer right foot Primary Care Provider: Daniel Mae History of Present Illness History of Present Illness Katy Noble is a 78 year old diabetic female who initially presented to clinic with an ulceration that had formed at the plantar aspect of her right midfoot 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 this was initially at 02 December, she presented to my clinic outpatient about 2 weeks after the wound had formed at that time x-rays were performed and they were negative for bony destruction, foreign body or gas, wound culture was also performed she had not been on antibiotics up to that point and wound culture was performed after debridement of the wound, culture grew Pseudomonas and Enterococcus faecalis over the course of the past month she has underwent wound care consisting of offloading with cam boot, decreased activity, she ambulates with a walker only for transfers, have been performing Hydrofera Blue she has also been prescribed levofloxacin outpatient. Labs including CBC, CMP, ESR and CRP were drawn outpatient 12/29/2023 demonstrated elevated white blood cell count, elevated ESR and CRP. Over the course of the past month the wound has deepened on 01/13/2024 the wound probes directly to bone, a new culture was taken in clinic and given the deepening of the wound worrisome for osteomyelitis she was directed to the emergency department for admission to the hospital service to receive IV antibiotics and surgical debridement. Review of Systems 2 General: Reports: 10 or more systems reviewed and unremarkable except in HPI and below Const: Denies: fever(s) or chills Eyes: Denies: change in vision Card: Denies: chest pain or palpitations Resp: Denies: dyspnea or productive cough GI: Denies: abdominal pain, nausea or vomiting : Denies: flank pain Musc: Reports: extremity swelling, joint stiffness and deformity Skin/Breast: Reports: erythema, sores, changes in skin color, dry skin, nail changes and change in hair Neuro: Reports: numbness in extremities, sensory changes and difficulty walking Psych: Denies: suicidal ideation Endo: Denies: change in body appearance Toño/Lymph: Denies: tender lymph nodes Medications/Allergies Home Medications Medication Instructions Recorded Confirmed Last Taken Type acetaminophen 500 mg tablet 500 mg PO Q6H PRN pain 01/28/21 09/11/24 2 Days Ago History ~09/15/21 famotidine 20 mg tablet (Pepcid) 20 mg PO BID 05/31/20 01/13/24 09/20/23 History gabapentin 300 mg capsule 300 mg PO BEDTIME 05/31/20 01/13/24 09/20/23 History insulin degludec 200 unit/mL (3 25 unit SUBCUT QAM 06/05/20 01/13/24 09/20/23 History mL) subcutaneous pen (Tresiba FlexTouch U-200 insulin) hydroxyurea 500 mg capsule 500 mg PO EVERY OTHER DAY 12/12/20 01/13/24 09/20/23 History atorvastatin 20 mg tablet 20 mg PO DAILY 04/07/21 01/13/24 09/20/23 History aspirin 81 mg tablet,delayed 81 mg PO DAILY #90 tabs 04/13/21 01/13/24 09/20/23 Rx release amlodipine 10 mg tablet 10 mg PO DAILY #30 tabs 04/29/21 01/13/24 09/20/23 Rx calcitriol 0.25 mcg capsule 0.25 mcg PO DAILY 09/17/21 01/13/24 09/20/23 History loperamide 2 mg capsule (Imodium 2 mg PO Q6H PRN loose stool #10 09/22/21 01/13/24 Unknown Rx A-D) caps lisinopril 5 mg tablet 5 mg PO DAILY 09/21/23 01/13/24 Unknown History nitroglycerin 0.4 mg sublingual See Rx Instructions .Route .COMPLEX 09/21/23 01/13/24 Unknown History tablet sertraline 100 mg tablet 100 mg PO DAILY 09/21/23 01/13/24 09/20/23 History hydralazine 25 mg tablet 75 mg (3 x 25 mg) PO TID #90 tabs 09/25/23 01/13/24 Unknown Rx carvedilol 12.5 mg tablet 25 mg PO BID 10/10/23 01/13/24 Unknown History CAM walker #1 ea 12/17/23 01/13/24 Unknown Rx levofloxacin 750 mg tablet 750 mg PO DAILY 7 days #7 tabs 12/21/23 01/13/24 Unknown Rx levofloxacin 750 mg tablet 750 mg PO DAILY 7 days #7 tabs 12/29/23 01/13/24 Unknown Rx Allergies Allergy/AdvReac Type Severity Reaction Status Date / Time codeine Allergy ALGY-Hives Verified 01/14/24 14:05 morphine Allergy Unknown Verified 01/14/24 14:05 Penicillins Allergy Unknown Verified 01/14/24 14:05 Sulfa (Sulfonamide Allergy Unknown Verified 01/14/24 14:05 Antibiotics) PFSH Acute 2 PFSH: Medical History Charcot's joint, right ankle and foot Leukocytosis Depression GERD (gastroesophageal reflux disease) Thrombocytosis Diabetic peripheral neuropathy associated with type 2 diabetes mellitus Carotid artery stenosis Carotid artery disease Acute CVA (cerebrovascular accident) UTI (urinary tract infection) Aphasia Acute kidney injury superimposed on chronic kidney disease Sepsis Aspiration pneumonitis Chronic kidney disease PUD (peptic ulcer disease) Hypertension Stroke Charcot foot due to diabetes mellitus Coronary artery disease Osteomyelitis Diabetes Diabetic foot ulcer History of hyperbaric oxygen therapy Acute cystitis Cerebrovascular accident Patient with ongoing aphasia Surgical History S/P PICC central line placement Patient had tunneled left subclavian central line for IV antibiotics for osteomyelitis which was removed by Dr. Zelaya 2017 S/P carotid endarterectomy Family History Other Family history non-contributory Social History Smoking and tobacco/nicotine status: never used tobacco/nicotine Alcohol intake: never Substance/Drug Use: never Household members: family Housing: House Vitals/I&O/Wt Last Vital Signs Temp 98.1 F 01/14/24 14:00 Pulse 70 01/14/24 14:00 Resp 16 01/14/24 14:00 BP 177/75 01/14/24 14:00 Pulse Ox 96 01/14/24 14:00 O2 Del Method Room Air 01/14/24 14:00 Weight last 48 hrs Weight 189 lb Data 01/15/24 02:52 01/15/24 02:52 Micro: Microbiology 01/14/24 17:38 Blood Culture - Preliminary Blood SPECIMEN COLLECTED 01/14/24 17:36 Blood Culture - Preliminary Blood SPECIMEN COLLECTED A&P Assessment and plan (1) Osteomyelitis of right foot: Qualifiers: Osteomyelitis type: unspecified type Qualified Code(s): M86.9 - Osteomyelitis, unspecified (2) Non-pressure chronic ulcer of other part of right foot with necrosis of muscle: (3) Diabetic peripheral neuropathy associated with type 2 diabetes mellitus: Demi Katy Noble is a 78 year old diabetic female who initially presented to clinic with an ulceration that had formed at the plantar aspect of her right midfoot 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 this was initially at 02 December, she presented to my clinic outpatient about 2 weeks after the wound had formed at that time x-rays were performed and they were negative for bony destruction, foreign body or gas, wound culture was also performed she had not been on antibiotics up to that point and wound culture was performed after debridement of the wound, culture grew Pseudomonas and Enterococcus faecalis over the course of the past month she has underwent wound care consisting of offloading with cam boot, decreased activity, she ambulates with a walker only for transfers, have been performing Hydrofera Blue she has also been prescribed levofloxacin outpatient. Labs including CBC, CMP, ESR and CRP were drawn outpatient 12/29/2023 demonstrated elevated white blood cell count, elevated ESR and CRP. Over the course of the past month the wound has deepened on 01/13/2024 the wound probes directly to bone, a new culture was taken in clinic and given the deepening of the wound worrisome for osteomyelitis she was directed to the emergency department for admission to the hospital service to receive IV antibiotics and surgical debridement. Admitted to the hospital with IV antibiotics empirically consisting of vancomycin and meropenem Will be n.p.o. at midnight Anticipating surgical debridement of right foot 01/15/2024 Advised nonweightbearing to the right foot, may heel touch for transfers with posterior splint Coding Level of Care Code Acute Code for [facility] Fwd Diagnoses Osteomyelitis of right foot, unspecified type M86.9 Osteomyelitis type: unspecified type Non-pressure chronic ulcer of other part of right foot with necrosis of muscle L97.513 Diabetic peripheral neuropathy associated with type 2 diabetes mellitus E11.42
--- NOTE | 2024-01-14 18:10 | CTR_ITS ---
PROCEDURE INFORMATION: Exam: CT Right Lower Extremity, Foot Exam date and time: 01/14/2024 6:27 PM Age: 78 years old Clinical indication: Pain; Foot; Right; Additional info: Foot pain TECHNIQUE: Imaging protocol: CT of the right lower extremity without contrast was performed. Exam focused on the foot. Radiation optimization: All CT scans at this facility use at least one of these dose optimization techniques: automated exposure control; mA and/or kV adjustment per patient size (includes targeted exams where dose is matched to clinical indication); or iterative reconstruction. COMPARISON: MR foot RT wo con* [id number] 09/21/2021 8:53 AM RADIATION DOSE METRICS: Total DLP (mGy-cm): 126 FINDINGS: Bones/joints: Advanced neuropathic changes of the midfoot with multiple chronic fractures, malalignment and prominent solid periosteal reaction. No evidence of acute osseous erosion, fracture or subluxation. Soft tissues: Soft tissue ulceration of the plantar aspect of the midfoot/forefoot with surrounding soft tissue thickening compatible with cellulitis/granulation tissue. No discrete fluid collection to suggest abscess. No evidence of soft tissue air beyond the ulcers to suggest gas-forming infection/fasciitis. CT/CT foot RT wo con* [id number] IMPRESSION: 1. Soft tissue ulceration of the plantar aspect of the midfoot/forefoot without discrete fluid collection or evidence of underlying acute osseous abnormality.
[2024-01-14] MEDS: meclizine 25 mg tablet 50 MG PO (18:24)
[2024-01-14] MEDS: ondansetron 2 mg/ML SDV 2 mL 4 MG IVP (19:12)
[2024-01-14] MEDS: sodium chloride 0.9% 1,000 ML 999 ML IV (19:13)
[2024-01-14] MEDS: aztreonam 2,000 MG in sodium chloride 0.9% (plus) 100 ML 200 MG IV (19:16)
--- NOTE | 2024-01-14 19:32 | PC.NURSE ---
pt blood pressure has been high. 193/95 currently, dr. flores present and aware, will order bp meds and continue to monitor.
--- NOTE | 2024-01-14 19:41 | P.HP_ITS ---
Providers/Chief Complaint 2 Admitting Physician: La Turner MD Primary Care Provider: Daniel Mae Chief Complaint: nausea, foot pain, dizziness History of Present Illness Katy Noble is a 78 year old female with a past medical history of insulin- dependent type 2 diabetes mellitus, diabetic peripheral neuropathy, diverticulosis, history of osteomyelitis right foot, diabetic foot ulcer, CAD, history of DVT off anticoagulant therapy, was on Plavix, but had issues with anemia, had extensive evaluation for a GI bleed including EGD and colonoscopy which was within normal limits patient tells me, taken off Plavix on aspirin, who presents [facility] due to feeling unwell, fatigue, malaise, dizziness, increased drainage from right foot diabetic ulcer. Patient has a diabetic ulcer right foot, plantar aspect, being evaluated by Dr. Nieto, she was on oral antibiotics, she recently has been complaining of increased drainage from her right foot, increasing neuropathy, she is also been complaining of nausea, vomiting, dizziness for the last 2 days, feeling unwell, dizziness with ambulation. She denies any chest pain, no palpitations, no shortness of breath, does report bilateral lower extremity swelling. Review of Systems 2 Const: Reports: fatigue and malaise Card: Denies: chest pain Resp: Denies: dyspnea GI: Denies: abdominal pain Neuro: Reports: dizziness; Denies: headache(s) or weakness in extremities Medications/Allergies Home Medications Medication Instructions Recorded Confirmed Last Taken Type acetaminophen 500 mg tablet 500 mg PO Q6H PRN pain 05/31/20 01/13/24 2 Days Ago History ~09/15/21 famotidine 20 mg tablet (Pepcid) 20 mg PO BID 05/31/20 01/13/24 09/20/23 History gabapentin 300 mg capsule 300 mg PO BEDTIME 05/31/20 01/13/24 09/20/23 History insulin degludec 200 unit/mL (3 25 unit SUBCUT QAM 06/05/20 01/13/24 09/20/23 History mL) subcutaneous pen (Tresiba FlexTouch U-200 insulin) hydroxyurea 500 mg capsule 500 mg PO EVERY OTHER DAY 12/12/20 01/13/24 09/20/23 History atorvastatin 20 mg tablet 20 mg PO DAILY 04/07/21 01/13/24 09/20/23 History aspirin 81 mg tablet,delayed 81 mg PO DAILY #90 tabs 04/13/21 01/13/24 09/20/23 Rx release amlodipine 10 mg tablet 10 mg PO DAILY #30 tabs 04/29/21 01/13/24 09/20/23 Rx calcitriol 0.25 mcg capsule 0.25 mcg PO DAILY 09/17/21 01/13/24 09/20/23 History loperamide 2 mg capsule (Imodium 2 mg PO Q6H PRN loose stool #10 09/22/21 01/13/24 Unknown Rx A-D) caps lisinopril 5 mg tablet 5 mg PO DAILY 09/21/23 01/13/24 Unknown History nitroglycerin 0.4 mg sublingual See Rx Instructions .Route .COMPLEX 09/21/23 01/13/24 Unknown History tablet sertraline 100 mg tablet 100 mg PO DAILY 09/21/23 01/13/24 09/20/23 History hydralazine 25 mg tablet 75 mg (3 x 25 mg) PO TID #90 tabs 09/25/23 01/13/24 Unknown Rx carvedilol 12.5 mg tablet 25 mg PO BID 10/10/23 01/13/24 Unknown History CAM walker #1 ea 12/17/23 01/13/24 Unknown Rx levofloxacin 750 mg tablet 750 mg PO DAILY 7 days #7 tabs 12/21/23 01/13/24 Unknown Rx levofloxacin 750 mg tablet 750 mg PO DAILY 7 days #7 tabs 12/29/23 01/13/24 Unknown Rx Allergies Allergy/AdvReac Type Severity Reaction Status Date / Time codeine Allergy ALGY-Hives Verified 01/14/24 14:05 morphine Allergy Unknown Verified 01/14/24 14:05 Penicillins Allergy Unknown Verified 01/14/24 14:05 Sulfa (Sulfonamide Allergy Unknown Verified 01/14/24 14:05 Antibiotics) PFSH Acute 2 PFSH: Medical History Charcot's joint, right ankle and foot Leukocytosis Depression GERD (gastroesophageal reflux disease) Thrombocytosis Diabetic peripheral neuropathy associated with type 2 diabetes mellitus Carotid artery stenosis Carotid artery disease Acute CVA (cerebrovascular accident) UTI (urinary tract infection) Aphasia Acute kidney injury superimposed on chronic kidney disease Sepsis Aspiration pneumonitis Chronic kidney disease PUD (peptic ulcer disease) Hypertension Stroke Charcot foot due to diabetes mellitus Coronary artery disease Osteomyelitis Diabetes Diabetic foot ulcer History of hyperbaric oxygen therapy Acute cystitis Cerebrovascular accident Patient with ongoing aphasia Surgical History S/P PICC central line placement Patient had tunneled left subclavian central line for IV antibiotics for osteomyelitis which was removed by Dr. Zelaya 2016 S/P carotid endarterectomy Family History Other Family history non-contributory Social History Smoking and tobacco/nicotine status: never used tobacco/nicotine Alcohol intake: never Substance/Drug Use: never Household members: family Housing: House Vitals/I&O/Wt Last Vital Signs Temp 98.1 F 01/14/24 14:00 Pulse 76 01/14/24 19:30 Resp 17 01/14/24 19:30 BP 193/95 01/14/24 19:30 Pulse Ox 98 01/14/24 19:30 O2 Del Method Room Air 01/14/24 19:30 Weight last 48 hrs Weight 85.729 kg Physical Exam 2 Const: COMMON NORMALS: no acute distress and patient oriented x3 HENMT: COMMON NORMALS: normocephalic HEAD & SCALP: normocephalic Eye: COMMON NORMALS: Equal, round and reactive pupils present and EOMs intact bilaterally Neck/C-Spine: COMMON NORMALS: no JVD Lymph: LYMPHATIC: no lymphadenopathy noted Resp: COMMON NORMALS: normal respiratory effort, No retractions, No use of accessory muscles and clear to auscultation bilaterally AUSCULTATION: clear to auscultation bilaterally Cardio: COMMON NORMALS: no JVD, regular rate, regular rhythm, S1 normal heart sound present and S2 normal heart sound present RATE: regular rate RHYTHM: regular rhythm HEART SOUNDS: S1 normal heart sound present and S2 normal heart sound present GI: COMMON NORMALS: Normal to inspection, nondistended, normoactive bowel sounds present, Soft to palpation and non-tender Extremity: COMMON NORMALS: no calf tenderness and no pedal edema Neuro: COMMON NORMALS: patient oriented x3, CN's II-XII intact bilaterally and moves all extremities Psych: COMMON NORMALS: mental status grossly normal Skin: NARRATIVE SKIN EXAM: Bilateral lower extremities, no mottling, DP PT pulses diminished bilaterally although palpable, good capillary refill Bilateral lower extremity swelling, does have right calf swelling more than the left Right foot, plantar aspect, diabetic ulcer, measuring 1 x 1 cm, round, well- demarcated borders, serosanguineous discharge Data 01/14/24 15:12 01/14/24 15:12 Micro: Microbiology 01/14/24 17:38 Blood Culture - Preliminary Blood SPECIMEN COLLECTED 01/14/24 17:36 Blood Culture - Preliminary Blood SPECIMEN COLLECTED A&P Assessment and plan (1) Diabetic foot infection: (2) Coronary artery disease: (3) Dizziness: Plan Right foot diabetic foot infection ? With failure of outpatient therapy ? Concerns for deep tissue infection ? WBC 13.3, ESR 31, CRP 8.7 ? Foot CT ? CT/CT foot RT wo con* [id number] IMPRESSION: 1. Soft tissue ulceration of the plantar aspect of the midfoot/forefoot without discrete fluid collection or evidence of underlying acute osseous abnormality. ? Plan ? IV fluids ? Continue vancomycin ? Broaden antibiotic coverage to meropenem ? Does have diminished DP PT pulses bilaterally, will order arterial ultrasound bilateral extremity ? N.p.o. midnight -Dr. Nieto on consult, surgery in the morning -Full code -Lovenox for DVT prophylaxis History of right lower extremity DVT -Now with swelling, relative immobility, right foot diabetic ulcer and infection -Venous ultrasound Complaints of dizziness -Serial EKGs, serial troponins, telemetry monitoring -Obtain UA Hypertension -Resume home blood pressure medications -Monitor blood pressure closely Attestations 2 Medical Necessity Statement*: Patient requires hospitalization, inpatient, greater than 2 minutes, for right foot diabetic foot infection, failure of outpatient antibiotic therapy, concerns for deep tissue infection Diagnoses Diabetic foot infection E11.628; L08.9 Coronary artery disease I25.10 Dizziness R42
--- NOTE | 2024-01-14 20:59 | USR_ITS ---
PROCEDURE INFORMATION: Exam: US Duplex Lower Extremity Veins, Bilateral Exam date and time: 01/14/2024 9:12 PM Age: 78 years old Clinical indication: Edema, localized; Lower extremity, bilateral; Additional info: Swelling TECHNIQUE: Imaging protocol: Real-time duplex ultrasound of the bilateral extremities with 2-D chacon scale, color Doppler flow and spectral waveform analysis including responses to compression and other maneuvers (when performed) with image documentation. Complete exam focused on the lower extremity veins. COMPARISON: CT foot RT wo con* [id number] 01/14/2024 6:27 PM FINDINGS: Right deep veins: The common femoral, femoral, proximal profunda femoral and popliteal veins are patent without evidence of thrombus and demonstrate normal waveforms. Visualized deep calf veins are patent. Left deep veins: The common femoral, femoral, proximal profunda femoral and popliteal veins are patent without evidence of thrombus and demonstrate normal waveforms. Visualized deep calf veins are patent. Superficial veins: Bilateral saphenofemoral junctions are patent without thrombus. No evidence of thrombophlebitis. Soft tissues: There is superficial soft tissue edema without evidence of fluid collection. US/CV venous duplex [facility] [id number] IMPRESSION: 1. No sonographic evidence of deep venous thrombosis in either lower extremity.
--- NOTE | 2024-01-14 20:59 | USR_ITS ---
PROCEDURE INFORMATION: Exam: US Duplex Bilateral Lower Extremity Arteries Exam date and time: 01/14/2024 9:38 PM Age: 78 years old Clinical indication: Other: Diminished pedal pulses; Patient HX: Patient has a deformed right foot, which she calls a [employer] foot it appears to be a rocker-bottom foot with a non-healing ulcer on the plantar aspect of the right foot, being treated by podiatry x 1 month. ; Additional info: Decreased dp/pt pulses TECHNIQUE: Imaging protocol: Real-time ultrasound scan of the arteries of the bilateral lower extremities with 2-D chacon scale, color Doppler flow and spectral waveform analysis. Images documented and saved. COMPARISON: [place] [id number] 01/14/2024 9:12 PM FINDINGS: Right common femoral and profunda femoris arteries: No evidence of thrombosis or high-grade stenosis. Right superficial femoral artery: No evidence of thrombosis or high-grade stenosis. Right popliteal artery: No evidence of thrombosis or high-grade stenosis. Right calf/foot arteries: No evidence of thrombosis or high-grade stenosis. Left common femoral and profunda femoris arteries: No evidence of thrombosis or high-grade stenosis. Left superficial femoral artery: No evidence of thrombosis or high-grade stenosis. Left popliteal artery: No evidence of thrombosis or high-grade stenosis. Left calf/foot arteries: No evidence of thrombosis or high-grade stenosis. US/[place] [id number] IMPRESSION: 1. No evidence of thrombosis or high-grade stenosis in either lower extremity.
[2024-01-14] MEDS: vancomycin 1,000 MG in sodium chloride 0.9% 250 ML 250 MG IV (21:05)
--- NOTE | 2024-01-14 21:10 | PHA.VACGOAL ---
Vancomycin Goal - Goal Vancomycin Goal:: 10-15 mg/L Vancomycin Indication:: SSTI - Therapy Current therapy:: Meropenem Day of therpy:: Day [1]of [] Actual body weight (kg): 189 lb [place] body weight: 70.8 Dosing weight (kg): 85.7 - Data Labs: WBC 13.30 10^3/uL (3.29-11.43) H 01/14/24 15:12 RBC 5.83 10^6/uL (3.85-5.65) H 01/14/24 15:12 Hgb 14.00 g/dL (11.27-16.99) 01/14/24 15:12 Hct 46.3 % (36-47) 01/14/24 15:12 MCV 79.4 fl (85-98) L 01/14/24 15:12 MCH 24.0 pg (27-33) L 01/14/24 15:12 MCHC 30.2 g/dL (30-55) 01/14/24 15:12 RDW 32.0 % (12.1-15.1) H 01/14/24 15:12 Sodium 133 mmol/L (136-145) L 01/14/24 15:12 Potassium 4.1 mmol/L (3.5-5.1) 01/14/24 15:12 Chloride 98 mmol/L (98-107) 01/14/24 15:12 Carbon Dioxide 26 mmol/L (22-29) 01/14/24 15:12 Anion Gap 13.1 (5-19) 01/14/24 15:12 BUN 35 mg/dL (8-23) H 01/14/24 15:12 Creatinine 1.4 mg/dL (0.5-0.9) H 01/14/24 15:12 GFR Calculation Not Reportable 01/14/24 15:12 Last dialysis session:: N/A Treatment plan:: new consult Regimen:: INITIAL DOSE 1250 MG Q24H Follow up:: WILL MONITOR RENAL FUNCTION AND FOLLOW UP DAILY
[2024-01-14 21:31] LABS: Troponin(5th) Baseline 26 ng/L (0-10)
[2024-01-14 21:32] LABS: Lactic Sepsis W/Reflex 0.5 mmol/L (0.5-2.2)
[2024-01-14 21:33] LABS: Estmated Average Glucose 148; Hemoglobin A1C 6.8 % (4.0-6.0)
[2024-01-14] MEDS: gabapentin 300 mg Capsule PO (21:37)
[2024-01-14] MEDS: enoxaparin 40 mg/0.4 mL Syringe SUBCUT (21:38)
[2024-01-14 21:40] LABS: NT Pro B Type Natriuretic Pept 5483 pg/mL (0-450); Procalcitonin 0.21 ng/mL (0-0.5); Thyroid Stimulating Hormone 0.69 uIU/mL (0.27-4.20)
[2024-01-14 21:50] LABS: Creatine Phosphokinase 26 U/L (26-192); Ferritin 165 ng/mL (15-150); Iron 37 ug/dL (37-145)
--- NOTE | 2024-01-14 21:59 | PC.NURSE ---
report called to Canelo on med surg at 2158.
--- NOTE | 2024-01-14 22:42 | PC.NURSE ---
pt's bp medication not loaded in er Pyxis, this nurse relayed pt's high blood pressure readings and to give pt's blood pressure medication upon med surg Pyxis were med is available. spoke to abhi Rodney.
[2024-01-14] MEDS: pantoprazole 40 mg SDV IVP (22:55)
[2024-01-14] MEDS: meropenem 500 mg SDV IVP (22:55)
[2024-01-14] MEDS: sucralfate 1 gm Tablet PO (22:56)
[2024-01-14] MEDS: acetaminophen 325 mg Tablet 650 MG PO (22:56)
[2024-01-14] MEDS: lisinopril 5 mg Tablet 10 MG PO (22:56)
[2024-01-14] MEDS: hyDRALAzine 25 mg Tablet 75 MG PO (22:56)
[2024-01-14] MEDS: sodium chloride 0.9% 1,000 ML 75 ML IV (22:57)
[2024-01-15] VITALS (14 sets, daily range): BP systolic 111–198; BP diastolic 49–80; PULSE 62–86; RESP 16–18; TEMP 36.4–36.8; O2SAT 92–99
[2024-01-15 00:57] LABS: Troponin 5 2HR 25.73 ng/L (0-10)
[2024-01-15 00:59] LABS: Troponin 5 2HR Delta -0.27 ABS# (0-10)
--- NOTE | 2024-01-15 01:36 | ECG_ITS ---
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 Measurements Intervals [place] Rate: 79 P: 15 MN: 174 QRS: -51 QRSD: 122 T: 71 QT: 397 QTc: 457 Interpretive Statements SINUS RHYTHM POSSIBLE LEFT ATRIAL ENLARGEMENT [-0.1mV P-WAVE IN V1/V2] LEFT AXIS DEVIATION [QRS AXIS < -30] POSSIBLE LEFT VENTRICULAR HYPERTROPHY [VOLTAGE CRITERIA PLUS LAE OR QRS WIDENING] POSSIBLE ANTERIOR MYOCARDIAL INFARCTION , OF INDETERMINATE AGE [30 ms Q WAVE IN V3/V4, OR R < 0.2 mV IN V4] Compared to ECG 10/10/2023 05:34:19 No significant changes Electronically Signed On 01-15-2024 16:52:08 CDT by Herbert Brown M.D. [id number]
[2024-01-15 02:06] LABS: Bilirubin Urine Negative (Negative); Blood Urine Negative (Negative); Glucose Urine UA Negative (Normal); Ketones Urine Negative (Negative); Leukocyte Esterase Urine Trace (Negative); Nitrate Urine Negative (Negative); Specific Gravity, Urine 1.011 (1.005-1.030); Urine Appearance Clear (CLEAR); Urine Color Yellow (Yellow); Urobilinogen Urine 0.2 mg/dL (Negative); pH Urine 6.5 (5-7)
[2024-01-15 02:11] LABS: Add Urine Microscopic? YES; Bacteria Urine None Seen /hpf; Hyaline Casts Urine 1.65 /lpf; RBC Urine 0-2 /hpf (0-2); Squamous Epithelial Cell Urine 0-5 /hpf (0-5); WBC Urine >100 /hpf (0-5)
[2024-01-15 02:24] LABS: Add Urine Culture? Yes; Protein Urine 3+ (Negative)
[2024-01-15 03:01] LABS: Basophils # 0.1 10^3/uL (0.0-0.1); Basophils % 0.7 %; Eosinophils # 0.4 10^3/uL (0.0-0.8); Hematocrit 43.5 % (36-47); Lymphocytes # 1.2 10^3/uL (0.8-4.8); Mean Corpuscular HGB Conc 30.6 g/dL (30-55); Mean Corpuscular Hemoglobin 24.4 pg (27-33); Monocytes # 0.9 10^3/uL (0.2-0.9); Monocytes % 6.9 %; Neutrophils # 10.33 10^3/uL (1.8-7.7); Neutrophils % 78.4 %; Nucleated Red Blood Cells % 0 %; Platelet Count 403 10^3/cmm (157-399); Red Blood Count 5.44 10^6/uL (3.85-5.65); Red Cell Distribution Width 31.7 % (12.1-15.1); White Blood Count 13.18 10^3/uL (3.29-11.43)
[2024-01-15 03:21] LABS: Troponin 5 6HR 28.21 ng/L (0-10); Troponin 5 6HR Delta 2.21 ng/L (0-12)
[2024-01-15 03:24] LABS: Anion Gap 11.9 (5-19); Blood Urea Nitrogen 32 mg/dL (8-23); Calcium 8.9 mg/dL (8.5-10.5); Carbon Dioxide 27 mmol/L (22-29); Chloride 104 mmol/L (98-107); Creatinine Clr Calc Pharmacy 41.6281; Glucose 82 mg/dL (65-115); Osmolality Calculated 294 mOsm/kg (285-295); Potassium 3.9 mmol/L (3.5-5.1); Sodium 139 mmol/L (136-145)
[2024-01-15] MEDS: meropenem 500 mg SDV IVP ×2 (05:01→14:25)
[2024-01-15] MEDS: sucralfate 1 gm Tablet PO ×3 (06:22→20:43)
[2024-01-15 06:32] LABS: Glucose Point of Care 69 mg/dL (70-110)
[2024-01-15] MEDS: dextrose 10% 125 ML 750 ML IV (06:36)
[2024-01-15 07:30] LABS: Glucose Point of Care 92 mg/dL (70-110)
[2024-01-15] MEDS: amlodipine 10 mg Tablet PO (08:46)
[2024-01-15] MEDS: hyDRALAzine 25 mg Tablet 75 MG PO ×3 (08:46→20:44)
[2024-01-15] MEDS: sertraline 100 mg Tablet PO (08:46)
[2024-01-15] MEDS: aspirin 81 mg EC Tablet PO (08:46)
[2024-01-15] MEDS: carvedilol 12.5 mg Tablet 25 MG PO ×2 (08:46→17:41)
[2024-01-15] MEDS: lisinopril 5 mg Tablet 10 MG PO ×2 (08:46→20:44)
[2024-01-15] MEDS: acetaminophen 325 mg Tablet 650 MG PO ×2 (08:46→17:41)
[2024-01-15] MEDS: atorvastatin 40 mg Tablet PO (08:46)
[2024-01-15] MEDS: pantoprazole 40 mg SDV IVP ×2 (08:47→20:43)
[2024-01-15 10:06] LABS: Glucose Point of Care 74 mg/dL (70-110)
[2024-01-15] MEDS: sodium chloride 0.9% 1,000 ML 30 ML IV (10:06)
--- NOTE | 2024-01-15 10:15 | P.ANESASSM_ITS ---
Pre-Anesthetic Assessment Height/Weight: Height 1.8 m Weight 86.954 kg Temp Pulse Resp BP Pulse Ox O2 Del Method 97.5 F L 68 18 151/72 95 Room Air 01/15/24 09:53 01/15/24 09:53 01/15/24 09:53 01/15/24 09:53 01/15/24 09:53 01/15/24 09:53 Operation Date: 01/15/24 10:55 Proposed Procedures p Incision And Drainage(Right) - Hank Nieto DPM Familial anesthetic complications: None Was Beta Solitario taken within 24 hours: N/A Was Clonidine taken within 24 hours: N/A Last intake: Intake Last Liquid Date 01/14/24 Last Liquid Time 23:45 Last Solid Date 01/14/24 Last Solid Time 23:45 Social No alcohol and No tobacco Exam alert, oriented x 3, clear to auscultation bilaterally and regular rate & rhythm Airway Mallampati: Class I Dentition: other (mulitple missing in the back) CV/HEM Coronary Artery Disease, Deep Vein Thrombosis and Hypertension GI Gastroesophageal Reflux Disease and Peptic Ulcer Disease denies any nausea or vomiting today, no symptoms of gerd today Metabolic Diabetes Mellitus Neuropsych Cerebrovascular Accident Anesthetic Plan ASA status: 3 Anesthesia: MAC Risk of > 500 ml blood loss (7ml/kg in children): No Medications/Allergies Home Medications Medication Instructions Recorded Confirmed Last Taken Type acetaminophen 500 mg tablet 500 mg PO Q6H PRN pain 05/31/20 01/13/24 2 Days Ago History ~09/15/21 famotidine 20 mg tablet (Pepcid) 20 mg PO BID 05/31/20 01/13/24 09/20/23 History gabapentin 300 mg capsule 300 mg PO BEDTIME 05/31/20 01/13/24 09/20/23 History insulin degludec 200 unit/mL (3 25 unit SUBCUT QAM 06/05/20 01/13/24 09/20/23 History mL) subcutaneous pen (Tresiba FlexTouch U-200 insulin) hydroxyurea 500 mg capsule 500 mg PO EVERY OTHER DAY 12/12/20 01/13/24 09/20/23 History atorvastatin 20 mg tablet 20 mg PO DAILY 04/07/21 01/13/24 09/20/23 History aspirin 81 mg tablet,delayed 81 mg PO DAILY #90 tabs 04/13/21 01/13/24 09/20/23 Rx release amlodipine 10 mg tablet 10 mg PO DAILY #30 tabs 04/29/21 01/13/24 09/20/23 Rx calcitriol 0.25 mcg capsule 0.25 mcg PO DAILY 09/17/21 01/13/24 09/20/23 History loperamide 2 mg capsule (Imodium 2 mg PO Q6H PRN loose stool #10 09/22/21 01/13/24 Unknown Rx A-D) caps lisinopril 5 mg tablet 5 mg PO DAILY 09/21/23 01/13/24 Unknown History nitroglycerin 0.4 mg sublingual See Rx Instructions .Route .COMPLEX 09/21/23 01/13/24 Unknown History tablet sertraline 100 mg tablet 100 mg PO DAILY 09/21/23 01/13/24 09/20/23 History hydralazine 25 mg tablet 75 mg (3 x 25 mg) PO TID #90 tabs 09/25/23 01/13/24 Unknown Rx carvedilol 12.5 mg tablet 25 mg PO BID 10/10/23 01/13/24 Unknown History CAM walker #1 ea 12/17/23 01/13/24 Unknown Rx levofloxacin 750 mg tablet 750 mg PO DAILY 7 days #7 tabs 12/21/23 01/13/24 Unknown Rx levofloxacin 750 mg tablet 750 mg PO DAILY 7 days #7 tabs 12/29/23 01/13/24 Unknown Rx Allergies Allergy/AdvReac Type Severity Reaction Status Date / Time codeine Allergy ALGY-Hives Verified 01/14/24 14:05 morphine Allergy Unknown Verified 01/14/24 14:05 Penicillins Allergy Unknown Verified 01/14/24 14:05 Sulfa (Sulfonamide Allergy Unknown Verified 01/14/24 14:05 Antibiotics) Current Medications Generic Name Dose Route Start Last Admin Trade Name Freq PRN Reason Stop Dose Admin Acetaminophen 650 mg 01/14/24 20:59 01/15/24 08:46 Acetaminophen 325 Mg Tablet PO 650 mg Q6H PRN Administration Mild/Mod Pain Or Temp >/= 101 Amlodipine Besylate 10 mg 01/15/24 09:00 01/15/24 08:46 Amlodipine 10 Mg Tablet PO 10 mg DAILY DINA Administration Aspirin 81 mg 01/15/24 09:00 01/15/24 08:46 Aspirin 81 Mg Ec Tablet PO 81 mg DAILY DINA Administration Atorvastatin Calcium 40 mg 01/15/24 09:00 01/15/24 08:46 Atorvastatin 40 Mg Tablet PO 40 mg DAILY DINA Administration Carvedilol 25 mg 01/15/24 09:00 01/15/24 08:46 Carvedilol 12.5 Mg Tablet PO 25 mg BID DINA Administration Enoxaparin Sodium 40 mg 01/14/24 20:59 01/14/24 21:38 Enoxaparin 40 Mg/0.4 Ml Syringe SUBCUT 40 mg Q24H DINA Administration Gabapentin 300 mg 01/14/24 21:00 01/14/24 21:37 Gabapentin 300 Mg Capsule PO 300 mg BEDTIME DINA Administration Hydralazine HCl 75 mg 01/14/24 21:00 01/15/24 08:46 Hydralazine 25 Mg Tablet PO 75 mg TID DINA Administration Sodium Chloride 1,000 mls @ 75 mls/hr 01/14/24 20:59 01/15/24 09:52 Sodium Chloride 0.9% IV 0 mls/hr .[id number] DINA Infusion Dextrose 125 mls @ 750 mls/hr 01/14/24 20:59 01/15/24 07:44 D10w IV Infused PRN PRN Infusion Adult Acute Hypoglycemia Nursing Protocol Protocol Sodium Chloride 1,000 mls @ 30 mls/hr 01/15/24 10:00 01/15/24 10:06 Sodium Chloride 0.9% IV 30 mls/hr .Q24H DINA Administration Insulin Human Lispro 0 unit 01/15/24 08:00 01/15/24 07:44 Insulin Lispro 100 Unit/1 Ml SUBCUT Not Given TIDWM DINA Protocol Lisinopril 10 mg 01/14/24 20:59 01/15/24 08:46 Lisinopril 5 Mg Tablet PO 10 mg Q12H DINA Administration Meropenem 500 mg 01/14/24 20:59 01/15/24 05:01 Meropenem 500 Mg Sdv IVP 500 mg Q8H DINA Administration Protocol Pantoprazole Sodium 40 mg 01/14/24 20:59 01/15/24 08:47 Pantoprazole 40 Mg Sdv IVP 40 mg Q12H DNIA Administration Sertraline HCl 100 mg 01/15/24 09:00 01/15/24 08:46 Sertraline 100 Mg Tablet PO 100 mg DAILY DINA Administration Sucralfate 1 gm 01/14/24 21:00 01/15/24 06:22 Sucralfate 1 Gm Tablet PO 1 gm AC&BEDTIME DINA Administration [facility] Anesthesia Medical History Charcot's joint, right ankle and foot Leukocytosis Depression GERD (gastroesophageal reflux disease) Thrombocytosis Diabetic peripheral neuropathy associated with type 2 diabetes mellitus Carotid artery stenosis Carotid artery disease Acute CVA (cerebrovascular accident) UTI (urinary tract infection) Aphasia Acute kidney injury superimposed on chronic kidney disease Sepsis Aspiration pneumonitis Chronic kidney disease PUD (peptic ulcer disease) Hypertension Stroke Charcot foot due to diabetes mellitus Coronary artery disease Osteomyelitis Diabetes Diabetic foot ulcer History of hyperbaric oxygen therapy Acute cystitis Cerebrovascular accident Patient with ongoing aphasia Surgical History S/P PICC central line placement Patient had tunneled left subclavian central line for IV antibiotics for osteomyelitis which was removed by Dr. Zelaya 2017 S/P carotid endarterectomy Family History Other Family history non-contributory Social History Smoking and tobacco/nicotine status: never used tobacco/nicotine Alcohol intake: never Substance/Drug Use: never Household members: family Housing: House Data Anesthesia 01/15/24 02:52 01/15/24 02:52 Short CBC 01/14/24 01/15/24 Range/Units 15:12 02:52 WBC 13.30 H 13.18 H (3.29-11.43) 10^3/uL Hgb 14.00 13.30 (11.27-16.99) g/dL Hct 46.3 43.5 (36-47) % MCV 79.4 L 80.0 L (85-98) fl Plt Count 448 H 403 H (157-399) 10^3/cmm Neut % (Auto) 82.3 78.4 % Neut # (Auto) 10.95 H 10.33 H (1.8-7.7) 10^3/uL BMP 01/14/24 01/15/24 15:12 02:52 Sodium 133 L 139 Potassium 4.1 3.9 Chloride 98 104 Carbon Dioxide 26 27 BUN 35 H 32 H Creatinine 1.4 H 1.4 H Glucose 203 H 82 Calcium 9.4 8.9 Cardiac Enzymes 01/14/24 01/14/24 01/15/24 Range/Units 00:00 21:06 02:52 Creatine Kinase 26 (26-192) U/L Troponin T Baseline 26 H (0-10) ng/L Troponin T 120 Minute 25.73 H (0-10) ng/L Delta Troponin T -0.27 L (0-10) ABS# Troponin T Hi Sens 6Hr 28.21 H (0-10) ng/L Troponin T Hi Sens 6Hr Delta 2.21 (0-12) ng/L NT-Pro-B Natriuret Pep 5483 H (0-450) pg/mL Liver Function 01/14/24 Range/Units 15:12 Total Bilirubin 0.3 (0.15-1.2) mg/dL AST 12 (0-32) U/L ALT 6 (0-33) U/L Alkaline Phosphatase 108 H (35-105) U/L Albumin 3.3 L (3.5-5.2) g/dL Urine 01/14/24 Range/Units 02:00 Urine Color Yellow (Yellow) Urine Appearance Clear (CLEAR) Urine pH 6.5 (5-7) Ur Specific [place] 1.011 (1.005-1.030) Urine Protein 3+ A (Negative) Urine Glucose (UA) Negative (Normal) Urine Ketones Negative (Negative) Urine Nitrate Negative (Negative) Urine Bilirubin Negative (Negative) Ur Leukocyte Esterase Trace A (Negative) Urine RBC 0-2 (0-2) /hpf Urine WBC >100 H (0-5) /hpf Coags 01/14/24 01/14/24 15:12 21:06 ESR 31 H D-Dimer 0.90 H C-Reactive Protein 8.7 H Microbiology 01/14/24 17:38 Blood Culture - Preliminary Blood SPECIMEN COLLECTED 01/14/24 17:36 Blood Culture - Preliminary Blood SPECIMEN COLLECTED Cardiac Studies: 2 Echocardiogram 09/21/23
[2024-01-15] MEDS: dextrose 50% syringe 50 mL (10:21)
--- NOTE | 2024-01-15 10:24 | PC.SOCIAL ---
IMM Update pg 2 of IMM updated and reviewed w/ patient. Copy provided and copy dated, initialed and placed in chart.
[2024-01-15 10:47] LABS: Glucose Point of Care 113 mg/dL (70-110)
--- NOTE | 2024-01-15 11:01 | P.HPUD_ITS ---
Surgery/Procedure H&P Update DATE OF PROCEDURE: January 15, 2024 DATE H&P PERFORMED: 01/14/24 H&P UPDATE INFORMATION: I have reviewed H&P completed within last 30 days, I have examined patient prior to procedure, No changes to prior documentation and H&P is in [facility] EMR on date indicated PLANNED PROCEDURE: Operation Date: 01/15/24 10:55 Proposed Procedures p Incision And Drainage(Right) - Hank Nieto DPM
[2024-01-15] MEDS: lidocaine 2% INJ 20 mL INJECTION (11:20)
--- NOTE | 2024-01-15 11:47 | W.PM.BPON ---
Date of Procedure: 07/17/23 Surgeon: Hank Nieto DPM Sourcing Manager(s): Gorge Procedure(s) performed: Incision and debridement down to myofascial layer right foot Findings of the procedure(s): Devitalized tissue down to myofascial layer right foot Estimated blood loss: 5 mL Specimen(s) removed: Soft tissue specimen sent to microbiology for Gram stain, culture and sensitivity, from postdebridement devitalized tissue right foot Post-operative diagnosis: Diabetic foot ulcer to myofascial layer right foot.
--- NOTE | 2024-01-15 11:48 | PM.OP ---
Operative Report Date of procedure: January 15, 2024 Pre-op diagnosis: Non-pressure chronic ulcer of other part of right foot with necrosis of muscle L97.513 Post-op diagnosis: Same Post-op findings: No obvious signs of osteomyelitis appreciated intraoperatively. Procedure done: Incision and debridement down to myofascial layer right foot. CPT code 23543 Implants: No implants Specimens removed/disposition: Deep tissue culture from myofascial layer right foot wound sent to microbiology for Gram stain, culture and sensitivity. 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 this was initially at 02 December, she presented to my clinic outpatient about 2 weeks after the wound had formed at that time x-rays were performed and they were negative for bony destruction, foreign body or gas, wound culture was also performed she had not been on antibiotics up to that point and wound culture was performed after debridement of the wound, culture grew Pseudomonas and Enterococcus faecalis over the course of the past month she has underwent wound care consisting of offloading with cam boot, decreased activity, she ambulates with a walker only for transfers, have been performing Hydrofera Blue she has also been prescribed levofloxacin outpatient. Labs including CBC, CMP, ESR and CRP were drawn outpatient 12/29/2023 demonstrated elevated white blood cell count, elevated ESR and CRP. Over the course of the past month the wound has deepened on 01/13/2024 the wound probes directly to bone, a new culture was taken in clinic and given the deepening of the wound worrisome for osteomyelitis she was directed to the emergency department for admission to the hospital service to receive IV antibiotics and surgical debridement. Procedure: Patient was brought to the operating room and remained on the gurney in supine position. A timeout was performed. Anesthesia was then administered by the anesthesia service. Local anesthesia injected by myself consisting of 10 cc of 1% lidocaine plain in a V-block fashion just proximal and distal to the right plantar midfoot wound. No tourniquet utilized for this procedure. The right lower extremity was scrubbed, prepped and draped utilizing normal aseptic technique. Attention was directed to the plantar aspect of the right foot where a full-thickness wound exposed down to the myofascial layer and and probing deep near to bone was appreciated wound measurements predebridement were 1 cm x 1 cm x 4 mm with hyperkeratotic rim and devitalized base down to and including deep fascia and muscle. Sharp debridement was performed excisionally in nature with brown pickups and a #10 blade, the wound was circumferentially incised around the margin to healthy tissue and incised deeply down to myofascial layer, devitalized tissue was passed from the operative field and the incision was irrigated with copious amounts of sterile skin solution. The base of the wound probed near to bone and was firm however bone was not devitalized at appropriate density in color and no obvious signs of osteomyelitis. The incision was further irrigated with copious amounts of sterile saline solution. Postdebridement wound measurement right plantar midfoot 1.5 cm x 1.5 cm x 0.5 cm. No further devitalized tissue was appreciated. Dressing was then applied consisting of saline wet-to-dry, Kerlix and a well-padded multilayer compressive posterior splint with stirrup. Patient tolerated the procedure and anesthesia well and was transferred to the PACU with vital signs stable and vascular status intact. Following a period of postoperative monitoring she will transfer back to the floor to continue empiric IV antibiotics. Cultures are pending. Of note deep tissue cultures were taken of myofascial layer intraoperatively and sent to microbiology. Planning on discharge home on oral antibiotics once clinical improvement is observed.
[2024-01-15 11:57] LABS: Glucose Point of Care 80 mg/dL (70-110)
--- NOTE | 2024-01-15 12:00 | ANE.PACU2 ---
Inpatient post-anesthesia follow up: Airway intact: Yes Vital signs: Temperature 98.2 F Pulse Rate 66 Respiratory Rate 16 Blood Pressure 138/66 Pulse Oximetry 95 Oxygen Delivery Me thod Room Air Oxygen Flow Rate 6 Fraction of Inspir ed Oxygen Hydration adequate: Yes Nausea and vomiting: No Pain level: 1 Mental status: Baseline
--- NOTE | 2024-01-15 12:04 | P.PN_ITS ---
Subjective 2 Subjective: Seen this morning. Seen in PACU after surgery. Doing well. Vitals/I&O/Wt Last Vital Signs Temp 98 F 01/15/24 11:55 Pulse 64 01/15/24 11:55 Resp 16 01/15/24 11:50 BP 133/66 01/15/24 11:55 Pulse Ox 94 01/15/24 11:55 O2 Del Method Oxymask 01/15/24 11:50 O2 Flow Rate 6 01/15/24 11:50 01/14/24 01/15/24 01/15/24 22:59 06:59 14:59 Intake Total 350 / 350 1000 / 1350 1143.75 / 1143.75 Output Total 500 / 500 605 / 605 Balance 350 / 350 500 / 850 538.75 / 538.75 Weight last 48 hrs Weight 86.954 kg Weight 86.636 kg Weight 85.729 kg Physical Exam 2 Const: COMMON NORMALS: no acute distress HENMT: COMMON NORMALS: normocephalic HEAD & SCALP: normocephalic Eye: COMMON NORMALS: Equal, round and reactive pupils present and EOMs intact bilaterally PUPIL: Yes Equal, round and reactive pupils present Resp: COMMON NORMALS: normal respiratory effort, No retractions, No use of accessory muscles and clear to auscultation bilaterally AUSCULTATION: clear to auscultation bilaterally Cardio: COMMON NORMALS: regular rate, regular rhythm, S1 normal heart sound present and S2 normal heart sound present RATE: regular rate RHYTHM: r egular rhythm HEART SOUNDS: S1 normal heart sound present and S2 normal heart sound present GI: COMMON NORMALS: Normal to inspection, nondistended, normoactive bowel sounds present, Soft to palpation and non-tender PALPATION: Yes Soft to palpation Extremity: COMMON NORMALS: no pedal edema NARRATIVE EXTREMITY EXAM: Right video covered with Band-Aid Psych: COMMON NORMALS: mental status grossly normal Data 01/15/24 02:52 01/15/24 02:52 Micro: Microbiology 01/14/24 17:38 Blood Culture - Preliminary Blood SPECIMEN COLLECTED 01/14/24 17:36 Blood Culture - Preliminary Blood SPECIMEN COLLECTED A&P Assessment and plan (1) Diabetic foot infection: (2) Coronary artery disease: (3) Dizziness: Plan Right foot diabetic foot infection ? With failure of outpatient therapy ? Concerns for deep tissue infection ? WBC 13.3, ESR 31, CRP 8.7 ? Foot CT ? CT/CT foot RT wo con* [id number] IMPRESSION: 1. Soft tissue ulceration of the plantar aspect of the midfoot/forefoot without discrete fluid collection or evidence of underlying acute osseous abnormality. ? Plan ? IV fluids ? Continue vancomycin ? Broaden antibiotic coverage to meropenem ? Does have diminished DP PT pulses bilaterally, will order arterial ultrasound bilateral extremity ? N.p.o. midnight -Dr. Nieto on consult, surgery in the morning -Full code -Lovenox for DVT prophylaxis History of right lower extremity DVT -Now with swelling, relative immobility, right foot diabetic ulcer and infection -Venous ultrasound Complaints of dizziness -Serial EKGs, serial troponins, telemetry monitoring -Obtain UA Hypertension -Resume home blood pressure medications -Monitor blood pressure closely 01/14 plan for surgery today with podiatry continue meropenem await culture Attestations 2 Medical Necessity Statement*: Surgery today. Diagnoses Diabetic foot infection E11.628; L08.9 Coronary artery disease I25.10 Dizziness R42
[2024-01-15 16:20] LABS: Glucose Point of Care 61 mg/dL (70-110)
[2024-01-15 17:19] LABS: Glucose Point of Care 136 mg/dL (70-110)
[2024-01-15 20:16] LABS: Glucose Point of Care 194 mg/dL (70-110)
[2024-01-15] MEDS: HYDROmorphone 1 mg/mL INJ 1 mL 0.4 MG IVP (20:36)
[2024-01-15] MEDS: vancomycin 1,250 MG/250 ML PIGGYBACK 166.67 MG IV (20:38)
[2024-01-15] MEDS: gabapentin 300 mg Capsule PO (20:43)
[2024-01-15] MEDS: enoxaparin 40 mg/0.4 mL Syringe SUBCUT (20:44)
[2024-01-15] MEDS: sodium chloride 0.9% 1,000 ML 75 ML IV (22:55)
[2024-01-16] VITALS (7 sets, daily range): BP systolic 162–202; BP diastolic 67–94; PULSE 71–83; RESP 15–20; TEMP 36.4–36.9; O2SAT 92–97
[2024-01-16] MEDS: meropenem 1,000 mg SDV 1000 MG IVP ×2 (03:13→15:35)
[2024-01-16 03:17] LABS: Basophils # 0.1 10^3/uL (0.0-0.1); Basophils % 0.8 %; Eosinophils # 0.5 10^3/uL (0.0-0.8); Eosinophils % 3.8 %; Hematocrit 47.5 % (36-47); Lymphocytes % 8.4 %; Mean Corpuscular HGB Conc 29.9 g/dL (30-55); Mean Corpuscular Hemoglobin 24.1 pg (27-33); Mean Corpuscular Volume 80.8 fl (85-98); Mean Platelet Volume 9.7 fL (7.4-10.4); Monocytes # 0.8 10^3/uL (0.2-0.9); Monocytes % 6.5 %; Neutrophils # 9.64 10^3/uL (1.8-7.7); Neutrophils % 78.8 %; Nucleated Red Blood Cells % 0 %; Platelet Count 418 10^3/cmm (157-399); Red Blood Count 5.88 10^6/uL (3.85-5.65); Red Cell Distribution Width 32.1 % (12.1-15.1); White Blood Count 12.24 10^3/uL (3.29-11.43)
[2024-01-16 03:35] LABS: Anion Gap 13.8 (5-19); Blood Urea Nitrogen 26 mg/dL (8-23); Calcium 8.8 mg/dL (8.5-10.5); Carbon Dioxide 24 mmol/L (22-29); Chloride 103 mmol/L (98-107); Glucose 112 mg/dL (65-115); Osmolality Calculated 290 mOsm/kg (285-295); Potassium 3.8 mmol/L (3.5-5.1); Sodium 137 mmol/L (136-145)
[2024-01-16 03:40] LABS: Creatinine Clr Calc Pharmacy 44.9042
[2024-01-16] MEDS: HYDROmorphone 1 mg/mL INJ 1 mL 0.4 MG IVP (05:17)
[2024-01-16] MEDS: hyDRALAzine 25 mg Tablet 75 MG PO ×3 (05:17→21:42)
[2024-01-16 06:22] LABS: Glucose Point of Care 104 mg/dL (70-110)
--- NOTE | 2024-01-16 06:33 | P.PN_ITS ---
Subjective 2 Subjective: Patient seen bedside this morning, 1 day status post incision and debridement right foot. Denies any acute events overnight. Complains of cramping of her right leg and thigh. Patient denies any subjective nausea, vomiting, fever, chills, shortness of breath or chest pain. Vitals/I&O/Wt Last Vital Signs Temp 97.8 F 01/16/24 04:00 Pulse 83 01/16/24 04:00 Resp 16 01/16/24 05:17 BP 186/94 01/16/24 05:49 Pulse Ox 92 01/16/24 05:17 O2 Del Method Room Air 01/15/24 13:10 O2 Flow Rate 6 01/15/24 11:50 01/15/24 01/15/24 01/16/24 14:59 22:59 06:59 Intake Total 1243.75 / 1243.75 551.25 / 1795.00 360 / 2155.00 Output Total 605 / 605 650 / 1255 Balance 638.75 / 638.75 551.25 / 1190.00 -290 / 900.00 Weight last 48 hrs Weight 197 lb 14.4 oz Weight 191 lb 11.2 oz Weight 191 lb Weight 189 lb Physical Exam 2 Narrative: Patient is alert and oriented ?3 and in no acute distress.? The following is a focused bilateral lower extremity exam. VASCULAR: Dorsalis pedis +1 bilaterally posterior tibial arteries +1.? Capillary refill time less than 3 seconds to the distal hallux bilaterally. Calf is supple and nontender proximally and distally.? Decreased pedal hair growth.? No pedal edema.? Varicosities to the lower extremities present.? Dependent rubor to the feet. NEUROLOGICAL: Protective sensation intact 0/10 sites, tested with [place] monofilament to bilateral feet. DERMATOLOGICAL: Improved wound appearance, no periwound erythema, no purulence right plantar midfoot. MUSCULOSKELETAL: No tenderness at the right foot and ankle secondary to neuropathy. Rocker-bottom foot deformity secondary to Charcot to the right lower extremity. No crepitus with soft tissue palpation at the right lower leg, ankle and foot. Data 01/17/24 04:22 01/17/24 04:22 Micro: Microbiology 01/14/24 17:38 Blood Culture - Preliminary Blood NEGATIVE TO DATE 01/14/24 17:36 Blood Culture - Preliminary Blood NEGATIVE TO DATE 01/15/24 11:34 Gram Stain - Final Foot - #1 A&P Assessment and plan (1) Osteomyelitis of right foot: Qualifiers: Osteomyelitis type: unspecified type Qualified Code(s): M86.9 - Osteomyelitis, unspecified (2) Non-pressure chronic ulcer of other part of right foot with necrosis of muscle: (3) Diabetic peripheral neuropathy associated with type 2 diabetes mellitus: Plan 1 day status post incision and debridement right foot doing well. Continue nonweightbearing right lower extremity Surgical dressing is clean and dry, no strikethrough, plans for changing tomorrow. Continue empiric IV antibiotics, may narrow once cultures yield further information Podiatry will follow Attestations 2 Medical Necessity Statement*: Patient requires continued wound care and IV antibiotics, awaiting wound cultures Coding Level of Care Code Acute Code for [facility] Diagnoses Osteomyelitis of right foot, unspecified type M86.9 Osteomyelitis type: unspecified type Non-pressure chronic ulcer of other part of right foot with necrosis of muscle L97.513 Diabetic peripheral neuropathy associated with type 2 diabetes mellitus E11.42
[2024-01-16] MEDS: sucralfate 1 gm Tablet PO ×4 (07:00→21:43)
[2024-01-16] MEDS: tizanidine 4 mg Tablet 2 MG PO ×2 (08:12→17:52)
[2024-01-16] MEDS: aspirin 81 mg EC Tablet PO (08:13)
[2024-01-16] MEDS: amlodipine 10 mg Tablet PO (08:13)
[2024-01-16] MEDS: lisinopril 5 mg Tablet 10 MG PO ×2 (08:13→21:42)
[2024-01-16] MEDS: atorvastatin 40 mg Tablet PO (08:13)
[2024-01-16] MEDS: carvedilol 12.5 mg Tablet 25 MG PO ×2 (08:14→17:52)
[2024-01-16] MEDS: pantoprazole 40 mg SDV IVP ×2 (08:14→21:42)
[2024-01-16] MEDS: acetaminophen 325 mg Tablet 650 MG PO ×2 (08:14→17:52)
[2024-01-16] MEDS: sertraline 100 mg Tablet PO (08:14)
[2024-01-16 11:43] LABS: Glucose Point of Care 169 mg/dL (70-110)
[2024-01-16] MEDS: insulin lispro 100 unit/1 mL SUBCUT ×2 (11:56→17:52)
[2024-01-16] MEDS: sodium chloride 0.9% 1,000 ML 75 ML IV (11:56)
--- NOTE | 2024-01-16 14:40 | P.PN_ITS ---
Vitals/I&O/Wt Last Vital Signs Temp 97.6 F 01/16/24 11:47 Pulse 71 01/16/24 11:47 Resp 16 01/16/24 11:47 BP 169/67 01/16/24 11:47 Pulse Ox 94 01/16/24 11:47 O2 Del Method Room Air 01/16/24 11:47 O2 Flow Rate 6 01/15/24 11:50 01/15/24 01/16/24 01/16/24 22:59 06:59 14:59 Intake Total 551.25 / 1795.00 360 / 2155.00 2468.25 / 2468.25 Output Total 650 / 1255 Balance 551.25 / 1190.00 -290 / 900.00 2468.25 / 2468.25 Weight last 48 hrs Weight 89.766 kg Weight 86.954 kg Weight 86.636 kg Physical Exam 2 Const: COMMON NORMALS: no acute distress HENMT: COMMON NORMALS: normocephalic HEAD & SCALP: normocephalic Eye: COMMON NORMALS: Equal, round and reactive pupils present and EOMs intact bilaterally PUPIL: Yes Equal, round and reactive pupils present Resp: COMMON NORMALS: normal respiratory effort, No retractions, No use of accessory muscles and clear to auscultation bilaterally AUSCULTATION: clear to auscultation bilaterally Cardio: COMMON NORMALS: regular rate, regular rhythm, S1 normal heart sound present and S2 normal heart sound present RATE: regular rate RHYTHM: r egular rhythm HEART SOUNDS: S1 normal heart sound present and S2 normal heart sound present GI: COMMON NORMALS: Normal to inspection, nondistended, normoactive bowel sounds present, Soft to palpation and non-tender PALPATION: Yes Soft to palpation Extremity: COMMON NORMALS: no pedal edema NARRATIVE EXTREMITY EXAM: Right foot covered with Band-Aid Psych: COMMON NORMALS: mental status grossly normal Data 01/16/24 02:33 01/16/24 02:33 Micro: Microbiology 01/15/24 11:34 Gram Stain - Final Foot - #1 Tissue Culture - Preliminary 01/14/24 02:00 Urine Culture - Preliminary Urine,Clean Catch 01/14/24 17:38 Blood Culture - Preliminary Blood NEGATIVE TO DATE 01/14/24 17:36 Blood Culture - Preliminary Blood NEGATIVE TO DATE A&P Assessment and plan (1) Diabetic foot infection: (2) Coronary artery disease: (3) Dizziness: Plan Right foot diabetic foot infection ? With failure of outpatient therapy ? Concerns for deep tissue infection ? WBC 13.3, ESR 31, CRP 8.7 ? Foot CT ? CT/CT foot RT wo con* [id number] IMPRESSION: 1. Soft tissue ulceration of the plantar aspect of the midfoot/forefoot without discrete fluid collection or evidence of underlying acute osseous abnormality. ? Plan ? IV fluids ? Continue vancomycin ? Broaden antibiotic coverage to meropenem ? Does have diminished DP PT pulses bilaterally, will order arterial ultrasound bilateral extremity ? N.p.o. midnight -Dr. Nieto on consult, surgery in the morning -Full code -Lovenox for DVT prophylaxis History of right lower extremity DVT -Now with swelling, relative immobility, right foot diabetic ulcer and infection -Venous ultrasound Complaints of dizziness -Serial EKGs, serial troponins, telemetry monitoring -Obtain UA Hypertension -Resume home blood pressure medications -Monitor blood pressure closely 01/15 Patient underwent debridement with surgery 01/14. continue meropenem await culture Dressing changes and postsurgical management as per podiatry. Attestations 2 Medical Necessity Statement*: Requires IV antibiotics for diabetic foot infection. Awaiting cultures. Diagnoses Diabetic foot infection E11.628; L08.9 Coronary artery disease I25.10 Dizziness R42
[2024-01-16 17:12] LABS: Glucose Point of Care 195 mg/dL (70-110)
[2024-01-16 20:20] LABS: Glucose Point of Care 236 mg/dL (70-110)
[2024-01-16] MEDS: gabapentin 300 mg Capsule PO (21:42)
[2024-01-16] MEDS: enoxaparin 40 mg/0.4 mL Syringe SUBCUT (21:43)
[2024-01-16] MEDS: vancomycin 1,250 MG/250 ML PIGGYBACK 166 MG IV (21:45)
[2024-01-17] VITALS: BP 178/80; PULSE 71; RESP 17; TEMP 36.6; O2SAT 95
[2024-01-17] MEDS: sodium chloride 0.9% 1,000 ML 75 ML IV (01:27)
[2024-01-17] MEDS: acetaminophen 325 mg Tablet 650 MG PO ×2 (01:31→08:03)
[2024-01-17] MEDS: tizanidine 4 mg Tablet 2 MG PO (01:32)
[2024-01-17] MEDS: meropenem 1,000 mg SDV 1000 MG IVP (02:22)
[2024-01-17 04:00] VITALS: BP 192/84; PULSE 76; RESP 18; TEMP 36.6; O2SAT 96
[2024-01-17 04:02] VITALS: BP 201/88
[2024-01-17] MEDS: cloNIDine 0.1 mg Tablet PO (04:02)
[2024-01-17 04:56] LABS: Basophils # 0.1 10^3/uL (0.0-0.1); Basophils % 0.6 %; Eosinophils # 0.5 10^3/uL (0.0-0.8); Eosinophils % 4.7 %; Hematocrit 41.7 % (36-47); Lymphocytes # 0.8 10^3/uL (0.8-4.8); Lymphocytes % 6.8 %; Mean Corpuscular HGB Conc 30.2 g/dL (30-55); Mean Corpuscular Hemoglobin 24.3 pg (27-33); Mean Corpuscular Volume 80.3 fl (85-98); Mean Platelet Volume 9.5 fL (7.4-10.4); Monocytes # 0.7 10^3/uL (0.2-0.9); Monocytes % 6.5 %; Neutrophils # 8.99 10^3/uL (1.8-7.7); Neutrophils % 79.8 %; Nucleated Red Blood Cells % 0 %; Platelet Count 343 10^3/cmm (157-399); Red Blood Count 5.19 10^6/uL (3.85-5.65); Red Cell Distribution Width 31.8 % (12.1-15.1); White Blood Count 11.27 10^3/uL (3.29-11.43)
[2024-01-17 05:17] LABS: Anion Gap 11.6 (5-19); Blood Urea Nitrogen 26 mg/dL (8-23); Calcium 8.7 mg/dL (8.5-10.5); Carbon Dioxide 23 mmol/L (22-29); Chloride 105 mmol/L (98-107); Glucose 163 mg/dL (65-115); Osmolality Calculated 290 mOsm/kg (285-295); Potassium 3.6 mmol/L (3.5-5.1); Sodium 136 mmol/L (136-145)
[2024-01-17 05:21] LABS: Creatinine Clr Calc Pharmacy 45.4038
[2024-01-17] MEDS: sucralfate 1 gm Tablet PO ×2 (06:24→11:56)
[2024-01-17 06:29] LABS: Glucose Point of Care 151 mg/dL (70-110)
[2024-01-17 08:00] VITALS: BP 206/85; PULSE 66; RESP 16; TEMP 36.4; O2SAT 95
[2024-01-17] MEDS: pantoprazole 40 mg SDV IVP (08:02)
[2024-01-17] MEDS: atorvastatin 40 mg Tablet PO (08:03)
[2024-01-17] MEDS: hyDRALAzine 25 mg Tablet 75 MG PO (08:03)
[2024-01-17] MEDS: insulin lispro 100 unit/1 mL SUBCUT ×2 (08:03→11:56)
[2024-01-17] MEDS: lisinopril 5 mg Tablet 10 MG PO (08:03)
[2024-01-17] MEDS: sertraline 100 mg Tablet PO (08:03)
[2024-01-17] MEDS: aspirin 81 mg EC Tablet PO (08:03)
--- NOTE | 2024-01-17 08:03 | P.PN_ITS ---
Subjective 2 Subjective: Patient seen bedside this morning, denies any acute events overnight. Patient denies any subjective nausea, vomiting, fever, chills, shortness of breath or chest pain. Vitals/I&O/Wt Last Vital Signs Temp 97.6 F 01/17/24 08:00 Pulse 66 01/17/24 08:00 Resp 16 01/17/24 08:00 BP 206/85 01/17/24 08:00 Pulse Ox 95 01/17/24 08:00 O2 Del Method Room Air 01/17/24 08:00 O2 Flow Rate 6 01/15/24 11:50 01/16/24 01/17/24 01/17/24 22:59 06:59 14:59 Intake Total 1250 / 3718.25 Balance 1250 / 3718.25 Weight last 48 hrs Weight 196 lb 7 oz Weight 197 lb 14.4 oz Physical Exam 2 Narrative: Patient is alert and oriented ?3 and in no acute distress.? The following is a focused bilateral lower extremity exam. VASCULAR: Dorsalis pedis +1 bilaterally posterior tibial arteries +1.? Capillary refill time less than 3 seconds to the distal hallux bilaterally. Calf is supple and nontender proximally and distally.? Decreased pedal hair growth.? No pedal edema.? Varicosities to the lower extremities present.? Dependent rubor to the feet. NEUROLOGICAL: Protective sensation intact 0/10 sites, tested with [place] Scot monofilament to bilateral feet. DERMATOLOGICAL: Right plantar midfoot wound measures 1.5 cm x 1.5 cm x 0.5 cm has healthy margin, no periwound erythema, warmth or drainage. MUSCULOSKELETAL: No tenderness at the right foot and ankle secondary to neuropathy. Rocker-bottom foot deformity secondary to Charcot to the right lower extremity. No crepitus with soft tissue palpation at the right lower leg, ankle and foot. Data 01/17/24 04:22 01/17/24 04:22 Micro: Microbiology 01/15/24 11:34 Gram Stain - Final Foot - #1 Tissue Culture - Preliminary 01/14/24 02:00 Urine Culture - Preliminary Urine,Clean Catch A&P Assessment and plan (1) Osteomyelitis of right foot: Qualifiers: Osteomyelitis type: unspecified type Qualified Code(s): M86.9 - Osteomyelitis, unspecified (2) Non-pressure chronic ulcer of other part of right foot with necrosis of muscle: (3) Diabetic peripheral neuropathy associated with type 2 diabetes mellitus: Demi Katy Noble is a 78 year old diabetic female who initially presented to clinic with an ulceration that had formed at the plantar aspect of her right midfoot 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 this was initially at 02 December, she presented to my clinic outpatient about 2 weeks after the wound had formed at that time x-rays were performed and they were negative for bony destruction, foreign body or gas, wound culture was also performed she had not been on antibiotics up to that point and wound culture was performed after debridement of the wound, culture grew Pseudomonas and Enterococcus faecalis over the course of the past month she has underwent wound care consisting of offloading with cam boot, decreased activity, she ambulates with a walker only for transfers, have been performing Hydrofera Blue she has also been prescribed levofloxacin outpatient. Labs including CBC, CMP, ESR and CRP were drawn outpatient 12/29/2023 demonstrated elevated white blood cell count, elevated ESR and CRP. Over the course of the past month the wound has deepened on 01/13/2024 the wound probes directly to bone, a new culture was taken in clinic and given the deepening of the wound worrisome for osteomyelitis she was directed to the emergency department for admission to the hospital service to receive IV antibiotics and surgical debridement. Interim update: 2 days status post incision and debridement date of operation 01/15/2024 Erythema resolved, no purulence, clinical improvement appreciated right plantar midfoot wound. No leukocytosis, patient is afebrile, wound cultures pending. Very low suspicion for osteomyelitis intraoperatively 01/15/2024. X-ray and CT scan right foot 01/14/2024 negative for osteomyelitis. Dressing change at today's visit with reapplication of posterior splint, she may weight-bear for transfers on the right lower extremity. Will discuss with hospitalist antibiotic regimen moving forward, oral antibiotics are an option from my standpoint Recommend wound care clinic follow-up outpatient Attestations 2 Medical Necessity Statement*: Requiring IV antibiotics and wound care Coding Level of Care Code Acute Code for [facility] Diagnoses Osteomyelitis of right foot, unspecified type M86.9 Osteomyelitis type: unspecified type Non-pressure chronic ulcer of other part of right foot with necrosis of muscle L97.513 Diabetic peripheral neuropathy associated with type 2 diabetes mellitus E11.42
[2024-01-17] MEDS: amlodipine 10 mg Tablet PO (08:04)
[2024-01-17] MEDS: carvedilol 12.5 mg Tablet 25 MG PO (08:04)
[2024-01-17 11:57] LABS: Glucose Point of Care 197 mg/dL (70-110)
[2024-01-17 12:00] VITALS: BP 187/79; PULSE 64; RESP 16; O2SAT 96
--- NOTE | 2024-01-17 13:02 | PM.DCS ---
Discharge Providers Date of Admission: 01/14/24 18:41 Date of Discharge: January 17, 2024 Attending Provider at Admission: La Tunrer MD Attending Provider at Discharge: La Turner MD Primary Care Provider: Daniel Mae Diagnoses at Discharge Discharge Diagnosis (1) Osteomyelitis of right foot: Status: Acute Qualifiers: Osteomyelitis type: unspecified type Qualified Code(s): M86.9 - Osteomyelitis, unspecified (2) Non-pressure chronic ulcer of other part of right foot with necrosis of muscle: Status: Acute (3) Diabetic peripheral neuropathy associated with type 2 diabetes mellitus: Status: Acute Reason for Visit Reason for Visit: nausea, foot pain, dizziness Hospital Course Hospital Course Patient was admitted for diabetic ulcer of right foot plantar aspect and was taken to the OR for debridement. Margins were clean. Please see podiatry note. Low suspicious for osteomyelitis. Recommended by podiatry to discharge patient home on 2 weeks of antibiotics orally. She is allergic to penicillin. We are going to go based off of her previous cultures that were obtained in December which were positive for Pseudomonas and Enterococcus. Antibiotic choices are pretty limited at this time. Will be discharging patient on Levaquin and linezolid. Weekly CBC has been ordered to monitor for thrombocytopenia. Linezolid should cover Enterococcus adequately. Levaquin to cover for Pseudomonas. Patient to follow-up with wound care as an outpatient. Will be discharged home in stable condition at this time. To follow-up with podiatry after discharge. Physical Exam Const: COMMON NORMALS: no acute distress HENMT: COMMON NORMALS: normocephalic HEAD & SCALP: normocephalic Eye: COMMON NORMALS: Equal, round and reactive pupils present and EOMs intact bilaterally PUPIL: Yes Equal, round and reactive pupils present Resp: COMMON NORMALS: normal respiratory effort, No retractions, No use of accessory muscles and clear to auscultation bilaterally AUSCULTATION: clear to auscultation bilaterally Cardio: COMMON NORMALS: regular rate, regular rhythm, S1 normal heart sound present and S2 normal heart sound present RATE: regular rate RHYTHM: regular rhythm HEART SOUNDS: S1 normal heart sound present and S2 normal heart sound present GI: COMMON NORMALS: Normal to inspection, nondistended, normoactive bowel sounds present, Soft to palpation and non-tender PALPATION: Yes Soft to palpation Extremity: COMMON NORMALS: no pedal edema NARRATIVE EXTREMITY EXAM: Right foot covered with Band-Aid Psych: COMMON NORMALS: mental status grossly normal Discharge Data Studies Completed and Pending Completed Studies During Hospitalization Category Date Time Status CT foot RT wo con* [id number] Stat Cat Scan 01/14/24 18:[address] head wo con* [id number] Stat Cat Scan 01/14/24 17:39 Completed XR foot RT min 3V* [id number] Stat Exams 01/14/24 17:23 [place] [id number] Routine Ultrasound 01/14/24 20:59 Completed US arterial duplex lower extremity bilat [CV arterial Ultrasound 01/14/24 20:59 [place] [id number]] Routine Pending at discharge Category Date Time Status Blood Culture Stat Lab 01/14/24 17:38 Results Tissue Culture and Gram Stain Routine Lab 01/15/24 11:34 Results Urine Culture Routine Lab 01/14/24 02:00 Results Radiology Impressions Foot X-Ray 01/14/24 17:23 IMPRESSION: 1. No evidence of acute osseous erosion, fracture or subluxation. 2. Soft tissue edema/ulceration of the lateral forefoot. There is soft tissue air in the region, likely related to ulceration. Gas-forming infection would be difficult to exclude. If there is ongoing clinical concern for infection, consider correlation with MRI. Head CT 01/14/24 17:39 IMPRESSION: 1. No acute intracranial abnormality. Foot CT 01/14/24 18:10 IMPRESSION: 1. Soft tissue ulceration of the plantar aspect of the midfoot/forefoot without discrete fluid collection or evidence of underlying acute osseous abnormality. Duplex Scan Lower Extremity Artery 01/14/24 20:59 IMPRESSION: 1. No evidence of thrombosis or high-grade stenosis in either lower extremity. Venous Duplex 01/14/24 20:59 IMPRESSION: 1. No sonographic evidence of deep venous thrombosis in either lower extremity. Laboratory Results WBC 11.27 10^3/uL (3.29-11.43) 01/17/24 04:22 RBC 5.19 10^6/uL (3.85-5.65) 01/17/24 04:22 Hgb 12.60 g/dL (11.27-16.99) 01/17/24 04:22 Hct 41.7 % (36-47) 01/17/24 04:22 MCV 80.3 fl (85-98) L 01/17/24 04:22 MCH 24.3 pg (27-33) L 01/17/24 04:22 MCHC 30.2 g/dL (30-55) 01/17/24 04:22 RDW 31.8 % (12.1-15.1) H 01/17/24 04:22 Plt Count 343 10^3/cmm (157-399) 01/17/24 04:22 MPV 9.5 fL (7.4-10.4) 01/17/24 04:22 Neut % (Auto) 79.8 % 01/17/24 04:22 Lymph % (Auto) 6.8 % 01/17/24 04:22 [place] % (Auto) 6.5 % 01/17/24 04:22 Eos % (Auto) 4.7 % 01/17/24 04:22 Baso % (Auto) 0.6 % 01/17/24 04:22 Neut # (Auto) 8.99 10^3/uL (1.8-7.7) H 01/17/24 04:22 Lymph # (Auto) 0.8 10^3/uL (0.8-4.8) 01/17/24 04:22 [place] # (Auto) 0.7 10^3/uL (0.2-0.9) 01/17/24 04:22 Eos # (Auto) 0.5 10^3/uL (0.0-0.8) 01/17/24 04:22 Baso # (Auto) 0.1 10^3/uL (0.0-0.1) 01/17/24 04:22 Nucleated RBC % (auto) 0 % 01/17/24 04:22 Nucleated RBCs # 0.0 /100WBC 01/17/24 04:22 ESR 31 mm/hr (0-15) H 01/14/24 15:12 D-Dimer 0.90 ug/mLFEU (0-0.59) H 01/14/24 21:06 Sodium 136 mmol/L (136-145) 01/17/24 04:22 Potassium 3.6 mmol/L (3.5-5.1) 01/17/24 04:22 Chloride 105 mmol/L (98-107) 01/17/24 04:22 Carbon Dioxide 23 mmol/L (22-29) 01/17/24 04:22 Anion Gap 11.6 (5-19) 01/17/24 04:22 BUN 26 mg/dL (8-23) H 01/17/24 04:22 Creatinine 1.3 mg/dL (0.5-0.9) H 01/17/24 04:22 GFR Calculation Not Reportable 01/17/24 04:22 Glucose 163 mg/dL (65-115) H 01/17/24 04:22 POC Glucose 197 mg/dL (70-110) H 01/17/24 11:50 Estimat Average Glucose 148 01/14/24 21:06 Hemoglobin A1c 6.8 % (4.0-6.0) H 01/14/24 21:06 Calculated Osmolality 290 mOsm/kg (285-295) 01/17/24 04:22 Lactic Acid 0.5 mmol/L (0.5-2.2) 01/14/24 21:06 Calcium 8.7 mg/dL (8.5-10.5) 01/17/24 04:22 Magnesium 2.0 mg/dL (1.7-2.3) 01/16/24 02:33 Iron 37 ug/dL (37-145) 01/14/24 21:06 Ferritin 165 ng/mL (15-150) H 01/14/24 21:06 Total Bilirubin 0.3 mg/dL (0.15-1.2) 01/14/24 15:12 AST 12 U/L (0-32) 01/14/24 15:12 ALT 6 U/L (0-33) 01/14/24 15:12 Alkaline Phosphatase 108 U/L (35-105) H 01/14/24 15:12 Creatine Kinase 26 U/L (26-192) 01/14/24 21:06 Troponin T Baseline 26 ng/L (0-10) H 01/14/24 21:06 Troponin T 120 Minute 25.73 ng/L (0-10) H 01/14/24 00:00 Delta Troponin T -0.27 ABS# (0-10) L 01/14/24 00:00 Troponin T Hi Sens 6Hr 28.21 ng/L (0-10) H 01/15/24 02:52 Troponin T Hi Sens 6Hr Delta 2.21 ng/L (0-12) 01/15/24 02:52 C-Reactive Protein 8.7 mg/L (0.0-4.9) H 01/14/24 15:12 NT-Pro-B Natriuret Pep 5483 pg/mL (0-450) H 01/14/24 21:06 Total Protein 6.4 g/dL (6.6-8.7) L 01/14/24 15:12 Albumin 3.3 g/dL (3.5-5.2) L 01/14/24 15:12 Globulin 3.1 g/dL (1.3-4.6) 01/14/24 15:12 Lipase 17 U/L (13-60) 01/14/24 15:12 Procalcitonin 0.21 ng/mL (0-0.5) 01/14/24 21:06 TSH 0.69 uIU/mL (0.27-4.20) 01/14/24 21:06 Urine Color Yellow (Yellow) 01/14/24 02:00 Urine Appearance Clear (CLEAR) 01/14/24 02:00 Urine pH 6.5 (5-7) 01/14/24 02:00 Ur Specific Eden 1.011 (1.005-1.030) 01/14/24 02:00 Urine Protein 3+ (Negative) A 01/14/24 02:00 Urine Glucose (UA) Negative (Normal) 01/14/24 02:00 Urine Ketones Negative (Negative) 01/14/24 02:00 Urine Blood Negative (Negative) 01/14/24 02:00 Urine Nitrate Negative (Negative) 01/14/24 02:00 Urine Bilirubin Negative (Negative) 01/14/24 02:00 Urine Urobilinogen 0.2 mg/dL (Negative) 01/14/24 02:00 Ur Leukocyte Esterase Trace (Negative) A 01/14/24 02:00 Urine RBC 0-2 /hpf (0-2) 01/14/24 02:00 Urine WBC >100 /hpf (0-5) H 01/14/24 02:00 Ur Squamous Epith Cells 0-5 /hpf (0-5) 01/14/24 02:00 Amorphous Sediment Not Reportable 01/14/24 02:00 Urine Bacteria None seen /hpf (NONE) 01/14/24 02:00 Hyaline Casts 1.65 /lpf 01/14/24 02:00 Vitals Last Vital Signs Temp 97.6 F 01/17/24 08:00 Pulse 64 01/17/24 12:00 Resp 16 01/17/24 12:00 BP 187/79 01/17/24 12:00 Pulse Ox 96 01/17/24 12:00 O2 Del Method Room Air 01/17/24 12:00 O2 Flow Rate 6 01/15/24 11:50 Discharge Plan Discharge Patient Disposition: Home Condition: Stable Prescriptions: New Zyvox 600 mg tablet 600 mg PO BID Qty: 28 0RF levofloxacin 750 mg tablet 750 mg PO DAILY 14 Days Qty: 14 0RF Continued (DME) SONIA anne See Rx Instructions .Route .MEDSUPPLY Qty: 1 0RF Rx Instructions: As directed insulin degludec [Tresiba FlexTouch U-200] 200 unit/mL (3 mL) insulin pen 40 unit SUBCUT QAM amlodipine 10 mg tablet 10 mg PO DAILY Qty: 30 0RF acetaminophen 500 mg Tablet 500 mg PO Q6H PRN (Reason: pain) famotidine [Pepcid] 20 mg Tablet 20 mg PO BID gabapentin 300 mg Capsule 600 mg PO BEDTIME hydroxyurea 500 mg capsule 500 mg PO EVERY OTHER DAY Rx Instructions: Thursday, Thursday, and Thursday atorvastatin 20 mg tablet 20 mg PO DAILY aspirin 81 mg tablet,delayed release (DR/EC) 81 mg PO DAILY Qty: 90 0RF calcitriol 0.25 mcg Capsule 0.25 mcg PO DAILY loperamide [Imodium A-D] 2 mg capsule 2 mg PO Q6H PRN (Reason: loose stool) Qty: 10 0RF sertraline 100 mg tablet 100 mg PO QPM nitroglycerin 0.4 mg tablet, sublingual See Rx Instructions .ROUTE .COMPLEX Rx Instructions: PLACE ONE TABLED UNDER TONGUE EVERY 5 MINUTES NEEDED FOR CHEST PAIN lisinopril 5 mg tablet 5 mg PO DAILY hydralazine 25 mg Tablet 75 mg PO TID Qty: 90 0RF carvedilol 25 mg tablet 25 mg PO BID tizanidine 2 mg tablet 2 mg PO TID PRN (Reason: muscle spasms) Discharge Orders: Discharge Order (Routine); Ordered 01/17/24 Ordered By: La Turner Other Ambulatory Orders: Complete Blood Count w/Auto (Q7D) Timeframe: 20240124 Location: Determined by Patient Ordered By: La Turner Complete Blood Count w/Auto (Q7D) Timeframe: 20240131 Location: Determined by Patient Ordered By: La Turner Referrals: Hank Nieto DPM [Physician] - (We have notified your physician's clinic of the need for a follow-up appointment to be scheduled. If you have not heard from them within the next 2 business days, please call them directly. ) Daniel Mae [Primary Care Provider] - (We have notified your physician's clinic of the need for a follow-up appointment to be scheduled. If you have not heard from them within the next 2 business days, please call them directly. ) [facility]ARE [facility]IN[facility], [Staff Physician] - (Right foot wound to [facility] follow-up.. We have notified your physician's clinic of the need for a follow-up appointment to be scheduled. If you have not heard from them within the next 2 business days, please call them directly. ) Patient Instructions: Levofloxacin (By mouth), Linezolid (By mouth), Acute Wound Care (DC), Incision and Drainage (DC), Opioid Safety, Post Anesthesia Care Discharge Attestations Time Spent in Discharge Care*: less than 30 min Status at Discharge: Cognitive status at discharge: cognitively intact, Behavioral status at discharge: cooperative, Quality Metrics Clinical Quality Measures [ No reported AMI, CVA or VTE this stay] Coding Level of Care Code Acute Code for [facility] Diagnoses Osteomyelitis of right foot, unspecified type M86.9 Osteomyelitis type: unspecified type Non-pressure chronic ulcer of other part of right foot with necrosis of muscle L97.513 Diabetic peripheral neuropathy associated with type 2 diabetes mellitus E11.42
== END 2024-01-17 15:56 | disposition home or self-care (01) | DRG 623 ==
LOC: ER 18:52 → MEDSURG 18:56
PROVIDERS: Family Medicine; Podiatrist Foot & Ankle Surgery; Admitting Provider Internal Medicine; Emergency Provider Emergency Medicine; PCP Family Medicine; Visit Provider Internal Medicine
PROC: 0JBQ0ZZ Excision of Right Foot Subcutaneous Tissue and Fascia, Open Approach (ICD-10-PCS; principal; 2024-01-15 10:45)
DX: E11.621 Type 2 diabetes mellitus with foot ulcer (principal); M86.8X7 Other osteomyelitis, ankle and foot; E11.42 Type 2 diabetes mellitus with diabetic polyneuropathy; I25.10 Atherosclerotic heart disease of native coronary artery without angina pectoris; L97.513 Non-pressure chronic ulcer of other part of right foot with necrosis of muscle; K21.9 Gastro-esophageal reflux disease without esophagitis; E11.22 Type 2 diabetes mellitus with diabetic chronic kidney disease; I12.9 Hypertensive chronic kidney disease with stage 1 through stage 4 chronic kidney disease, or unspecified chronic kidney disease; N18.9 Chronic kidney disease, unspecified; M14.671 Charcot's joint, right ankle and foot; Z79.82 Long term (current) use of aspirin; Z86.718 Personal history of other venous thrombosis and embolism; Z79.4 Long term (current) use of insulin; Z79.899 Other long term (current) drug therapy; Z88.1 Allergy status to other antibiotic agents; Z88.0 Allergy status to penicillin; Z88.8 Allergy status to other drugs, medicaments and biological substances; Z86.73 Personal history of transient ischemic attack (TIA), and cerebral infarction without residual deficits
CPT/HCPCS: 36415; 36416; 70450; 73630; 73700; 80048; 80053; 81001; 82550; 82728; 82962; 83036; 83540; 83605; 83690; 83735; 83880; 84145; 84443; 84484; 85025; 85378; 85651; 86140; 87040; 87070; 87075; 87086; 87176; 87205; 93005; 93925; 93970; 94664; 96365; 96367; 96372; 96375; 99213; 99285; J1170; J1650; J1815; J2185; J2405; J2470; J2704; J3370; J3490; J7030; J7050; J7799; J8597

== ENCOUNTER → 2024-01-21 08:58 | Outpatient (BNVA) | payer MEDICARE, SELFPAY | PROVIDERS: PCP Family Medicine; Visit Provider Thoracic Surgery (Cardiothoracic Vascular Surgery) | DX: E11.52 Type 2 diabetes mellitus with diabetic peripheral angiopathy with gangrene (principal); E11.621 Type 2 diabetes mellitus with foot ulcer; L97.522 Non-pressure chronic ulcer of other part of left foot with fat layer exposed | CPT/HCPCS: 11042; 99213 ==

== ENCOUNTER → 2024-01-28 08:45 | Outpatient (BNVA) | payer MEDICARE, SELFPAY | PROVIDERS: PCP Family Medicine; Visit Provider Thoracic Surgery (Cardiothoracic Vascular Surgery) | DX: E11.52 Type 2 diabetes mellitus with diabetic peripheral angiopathy with gangrene (principal); E11.621 Type 2 diabetes mellitus with foot ulcer; L97.511 Non-pressure chronic ulcer of other part of right foot limited to breakdown of skin | CPT/HCPCS: 97597 ==

== ENCOUNTER → 2024-02-04 07:54 | Outpatient (BNVA) | payer MEDICARE, SELFPAY | PROVIDERS: PCP Family Medicine; Visit Provider Thoracic Surgery (Cardiothoracic Vascular Surgery) | DX: E11.52 Type 2 diabetes mellitus with diabetic peripheral angiopathy with gangrene (principal); E11.621 Type 2 diabetes mellitus with foot ulcer; L97.512 Non-pressure chronic ulcer of other part of right foot with fat layer exposed | CPT/HCPCS: 97597 ==

== ENCOUNTER → 2024-02-10 09:47 | Outpatient (BNVA) | payer MEDICARE, SELFPAY | PROVIDERS: PCP Family Medicine; Visit Provider Podiatrist Foot & Ankle Surgery | DX: E11.42 Type 2 diabetes mellitus with diabetic polyneuropathy (principal); M14.671 Charcot's joint, right ankle and foot; L97.414 Non-pressure chronic ulcer of right heel and midfoot with necrosis of bone; L97.512 Non-pressure chronic ulcer of other part of right foot with fat layer exposed; E11.621 Type 2 diabetes mellitus with foot ulcer; Z79.4 Long term (current) use of insulin | CPT/HCPCS: 99213 ==

== ENCOUNTER → 2024-02-17 14:02 | Outpatient (BNVA) | payer MEDICARE, SELFPAY | PROVIDERS: PCP Family Medicine; Visit Provider Thoracic Surgery (Cardiothoracic Vascular Surgery) | DX: E11.621 Type 2 diabetes mellitus with foot ulcer (principal); E11.52 Type 2 diabetes mellitus with diabetic peripheral angiopathy with gangrene; L97.411 Non-pressure chronic ulcer of right heel and midfoot limited to breakdown of skin | CPT/HCPCS: 87070; 87176; 87205; 97597; A6197 ==

== ENCOUNTER → 2024-02-24 10:48 | Outpatient (BNVA) | payer MEDICARE, SELFPAY | PROVIDERS: PCP Family Medicine; Visit Provider Thoracic Surgery (Cardiothoracic Vascular Surgery) | DX: E11.52 Type 2 diabetes mellitus with diabetic peripheral angiopathy with gangrene (principal); E11.621 Type 2 diabetes mellitus with foot ulcer; L97.411 Non-pressure chronic ulcer of right heel and midfoot limited to breakdown of skin | CPT/HCPCS: 97597 ==

== ENCOUNTER → 2024-03-02 10:40 | Outpatient (BNVA) | payer MEDICARE, SELFPAY | PROVIDERS: PCP Family Medicine; Visit Provider Thoracic Surgery (Cardiothoracic Vascular Surgery) | DX: E11.52 Type 2 diabetes mellitus with diabetic peripheral angiopathy with gangrene (principal); E11.621 Type 2 diabetes mellitus with foot ulcer; L97.411 Non-pressure chronic ulcer of right heel and midfoot limited to breakdown of skin | CPT/HCPCS: 97597; A6197; A6251 ==

== ENCOUNTER → 2024-03-09 10:44 | Outpatient (BNVA) | payer MEDICARE, SELFPAY | PROVIDERS: PCP Family Medicine; Visit Provider Thoracic Surgery (Cardiothoracic Vascular Surgery) | DX: E11.52 Type 2 diabetes mellitus with diabetic peripheral angiopathy with gangrene (principal); E11.621 Type 2 diabetes mellitus with foot ulcer; L97.411 Non-pressure chronic ulcer of right heel and midfoot limited to breakdown of skin | CPT/HCPCS: 97597 ==

== ENCOUNTER → 2024-03-16 10:15 | Outpatient (BNVA) | payer MEDICARE, SELFPAY | PROVIDERS: PCP Family Medicine; Visit Provider Thoracic Surgery (Cardiothoracic Vascular Surgery) | DX: E11.52 Type 2 diabetes mellitus with diabetic peripheral angiopathy with gangrene (principal); E11.621 Type 2 diabetes mellitus with foot ulcer; L97.412 Non-pressure chronic ulcer of right heel and midfoot with fat layer exposed | CPT/HCPCS: 97597; A6197 ==

== ENCOUNTER → 2024-03-23 10:56 | Outpatient (BNVA) | payer MEDICARE, SELFPAY | PROVIDERS: PCP Family Medicine; Visit Provider Thoracic Surgery (Cardiothoracic Vascular Surgery) | DX: E11.52 Type 2 diabetes mellitus with diabetic peripheral angiopathy with gangrene (principal); E11.621 Type 2 diabetes mellitus with foot ulcer; L97.411 Non-pressure chronic ulcer of right heel and midfoot limited to breakdown of skin | CPT/HCPCS: 97597; A6197 ==

== ENCOUNTER → 2024-03-28 12:54 | Outpatient (BNVA) | payer MEDICARE, SELFPAY | PROVIDERS: PCP Family Medicine; Visit Provider Thoracic Surgery (Cardiothoracic Vascular Surgery) | DX: E11.52 Type 2 diabetes mellitus with diabetic peripheral angiopathy with gangrene (principal); E11.621 Type 2 diabetes mellitus with foot ulcer; L97.411 Non-pressure chronic ulcer of right heel and midfoot limited to breakdown of skin | CPT/HCPCS: 97597; A6197; A6251 ==

== ENCOUNTER → 2024-04-14 10:59 | Outpatient (BNVA) | payer MEDICARE, SELFPAY | PROVIDERS: PCP Family Medicine; Visit Provider Thoracic Surgery (Cardiothoracic Vascular Surgery) | DX: E11.52 Type 2 diabetes mellitus with diabetic peripheral angiopathy with gangrene (principal); E11.621 Type 2 diabetes mellitus with foot ulcer; L97.415 Non-pressure chronic ulcer of right heel and midfoot with muscle involvement without evidence of necrosis | CPT/HCPCS: 11042 ==

== ENCOUNTER 2024-04-20 14:57 | Outpatient (CLI) | payer MEDICARE, SELFPAY ==
--- NOTE | 2024-04-20 15:15 | MRR_ITS ---
PROCEDURE INFORMATION: Exam: MR Right Lower Extremity Other Than Joint Without and With Contrast; Foot Exam date and time: 04/20/2024 3:23 PM Age: 78 years old Clinical indication: Condition or disease; Other: Non-healing ulcer right plantar; Additional info: Non-healing ulcer right plantar ft; HX of osteomyelitis TECHNIQUE: Imaging protocol: Magnetic resonance imaging of the right lower extremity without and with contrast. Exam focused on the foot. 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 There is soft tissue ulceration of the plantar aspect of the midfoot/forefoot without discrete fluid collection to suggest abscess. No evidence of underlying acute osteomyelitis or septic joint. No evidence of acute fracture. MR/MR foot RT wo/w con [id number] IMPRESSION: 1. No evidence of acute osteomyelitis or fluid collection to suggest abscess.
[2024-04-20] MEDS: gadobenate dimeglumine 20 mL vial 19 ML IV (15:50)
== END 2024-04-20 14:58 | disposition home or self-care (01) ==
LOC: RAD 14:58
PROVIDERS: PCP Family Medicine
DX: E11.621 Type 2 diabetes mellitus with foot ulcer (principal); L97.519 Non-pressure chronic ulcer of other part of right foot with unspecified severity; E11.610 Type 2 diabetes mellitus with diabetic neuropathic arthropathy
CPT/HCPCS: 73720

== ENCOUNTER → 2024-04-21 10:57 | Outpatient (BNVA) | payer MEDICARE, SELFPAY | PROVIDERS: PCP Family Medicine; Visit Provider Thoracic Surgery (Cardiothoracic Vascular Surgery) | DX: E11.52 Type 2 diabetes mellitus with diabetic peripheral angiopathy with gangrene (principal); E11.621 Type 2 diabetes mellitus with foot ulcer; L97.412 Non-pressure chronic ulcer of right heel and midfoot with fat layer exposed | CPT/HCPCS: 11042; A6197 ==

== ENCOUNTER → 2024-04-28 10:44 | Outpatient (BNVA) | payer MEDICARE, SELFPAY | PROVIDERS: PCP Family Medicine | DX: E11.621 Type 2 diabetes mellitus with foot ulcer (principal); E11.52 Type 2 diabetes mellitus with diabetic peripheral angiopathy with gangrene; L97.412 Non-pressure chronic ulcer of right heel and midfoot with fat layer exposed | CPT/HCPCS: 11042; 87070; 87176; 87205; A6197; A6210; A6252 ==

== ENCOUNTER → 2024-05-03 10:52 | Outpatient (BNVA) | payer MEDICARE, SELFPAY | PROVIDERS: PCP Family Medicine; Visit Provider Thoracic Surgery (Cardiothoracic Vascular Surgery) | DX: E11.52 Type 2 diabetes mellitus with diabetic peripheral angiopathy with gangrene (principal); E11.621 Type 2 diabetes mellitus with foot ulcer; L97.411 Non-pressure chronic ulcer of right heel and midfoot limited to breakdown of skin | CPT/HCPCS: 97597; 97605; A6237; A6250 ==

== ENCOUNTER → 2024-05-10 10:39 | Outpatient (BNVA) | payer MEDICARE, SELFPAY | PROVIDERS: PCP Family Medicine; Visit Provider Thoracic Surgery (Cardiothoracic Vascular Surgery) | DX: E11.52 Type 2 diabetes mellitus with diabetic peripheral angiopathy with gangrene (principal); E11.621 Type 2 diabetes mellitus with foot ulcer; L97.411 Non-pressure chronic ulcer of right heel and midfoot limited to breakdown of skin | CPT/HCPCS: 97597; 97605; A6237; A6250 ==

== ENCOUNTER → 2024-05-17 10:21 | Outpatient (BNVA) | payer MEDICARE, SELFPAY | PROVIDERS: PCP Family Medicine; Visit Provider Thoracic Surgery (Cardiothoracic Vascular Surgery) | DX: E11.52 Type 2 diabetes mellitus with diabetic peripheral angiopathy with gangrene (principal); E11.621 Type 2 diabetes mellitus with foot ulcer; L97.411 Non-pressure chronic ulcer of right heel and midfoot limited to breakdown of skin | CPT/HCPCS: 97597; A6237; A6250 ==

== ENCOUNTER → 2024-05-24 10:45 | Outpatient (BNVA) | payer MEDICARE, SELFPAY | PROVIDERS: PCP Family Medicine; Visit Provider Thoracic Surgery (Cardiothoracic Vascular Surgery) | DX: E11.52 Type 2 diabetes mellitus with diabetic peripheral angiopathy with gangrene (principal); E11.621 Type 2 diabetes mellitus with foot ulcer; L97.411 Non-pressure chronic ulcer of right heel and midfoot limited to breakdown of skin | CPT/HCPCS: 97597; 97605; A6237; A6250 ==

== ENCOUNTER → 2024-05-31 09:01 | Outpatient (BNVA) | payer MEDICARE, SELFPAY | PROVIDERS: PCP Family Medicine; Visit Provider Podiatrist Foot & Ankle Surgery | DX: E11.621 Type 2 diabetes mellitus with foot ulcer (principal); L97.512 Non-pressure chronic ulcer of other part of right foot with fat layer exposed; L97.411 Non-pressure chronic ulcer of right heel and midfoot limited to breakdown of skin; E11.8 Type 2 diabetes mellitus with unspecified complications; E11.42 Type 2 diabetes mellitus with diabetic polyneuropathy; M14.671 Charcot's joint, right ankle and foot; E11.52 Type 2 diabetes mellitus with diabetic peripheral angiopathy with gangrene; Z79.4 Long term (current) use of insulin | CPT/HCPCS: 97597; 97605; 99213; A6237; A6250 ==

== ENCOUNTER → 2024-06-07 10:07 | Outpatient (BNVA) | payer MEDICARE, SELFPAY | PROVIDERS: PCP Family Medicine; Visit Provider Thoracic Surgery (Cardiothoracic Vascular Surgery) | DX: E11.52 Type 2 diabetes mellitus with diabetic peripheral angiopathy with gangrene (principal); E11.621 Type 2 diabetes mellitus with foot ulcer; L97.412 Non-pressure chronic ulcer of right heel and midfoot with fat layer exposed | CPT/HCPCS: 11042; 97605; A6237; A6250 ==

== ENCOUNTER → 2024-06-14 10:49 | Outpatient (BNVA) | payer MEDICARE, SELFPAY | PROVIDERS: PCP Family Medicine; Visit Provider Thoracic Surgery (Cardiothoracic Vascular Surgery) | DX: E11.52 Type 2 diabetes mellitus with diabetic peripheral angiopathy with gangrene (principal); E11.621 Type 2 diabetes mellitus with foot ulcer; L97.412 Non-pressure chronic ulcer of right heel and midfoot with fat layer exposed | CPT/HCPCS: 11042; 97605; A6237; A6250 ==

== ENCOUNTER → 2024-06-21 09:43 | Outpatient (BNVA) | payer MEDICARE, SELFPAY | PROVIDERS: PCP Family Medicine; Visit Provider Thoracic Surgery (Cardiothoracic Vascular Surgery) | DX: E11.52 Type 2 diabetes mellitus with diabetic peripheral angiopathy with gangrene (principal); E11.621 Type 2 diabetes mellitus with foot ulcer; L97.412 Non-pressure chronic ulcer of right heel and midfoot with fat layer exposed | CPT/HCPCS: 11042; 97605; A6237; A6250 ==

== ENCOUNTER → 2024-06-28 13:04 | Outpatient (BNVA) | payer MEDICARE, SELFPAY | PROVIDERS: PCP Family Medicine; Visit Provider Thoracic Surgery (Cardiothoracic Vascular Surgery) | DX: E11.52 Type 2 diabetes mellitus with diabetic peripheral angiopathy with gangrene (principal); E11.621 Type 2 diabetes mellitus with foot ulcer; L97.412 Non-pressure chronic ulcer of right heel and midfoot with fat layer exposed | CPT/HCPCS: 11042; 97605; A6237; A6250 ==

== ENCOUNTER → 2024-07-05 10:18 | Outpatient (BNVA) | payer MEDICARE, SELFPAY | PROVIDERS: PCP Family Medicine; Visit Provider Thoracic Surgery (Cardiothoracic Vascular Surgery) | DX: E11.52 Type 2 diabetes mellitus with diabetic peripheral angiopathy with gangrene (principal); E11.621 Type 2 diabetes mellitus with foot ulcer; L97.412 Non-pressure chronic ulcer of right heel and midfoot with fat layer exposed | CPT/HCPCS: 11042; 97605; A6237; A6250 ==

== ENCOUNTER → 2024-07-12 09:14 | Outpatient (BNVA) | payer MEDICARE, SELFPAY | PROVIDERS: PCP Family Medicine; Visit Provider Thoracic Surgery (Cardiothoracic Vascular Surgery) | DX: E11.52 Type 2 diabetes mellitus with diabetic peripheral angiopathy with gangrene (principal); E11.621 Type 2 diabetes mellitus with foot ulcer; L97.411 Non-pressure chronic ulcer of right heel and midfoot limited to breakdown of skin | CPT/HCPCS: 97597; A6237; A6250 ==

== ENCOUNTER → 2024-07-19 13:58 | Outpatient (BNVA) | payer MEDICARE, SELFPAY | PROVIDERS: PCP Family Medicine; Visit Provider Thoracic Surgery (Cardiothoracic Vascular Surgery) | DX: E11.52 Type 2 diabetes mellitus with diabetic peripheral angiopathy with gangrene (principal); E11.621 Type 2 diabetes mellitus with foot ulcer; L97.412 Non-pressure chronic ulcer of right heel and midfoot with fat layer exposed | CPT/HCPCS: 11042 ==

== ENCOUNTER → 2024-07-26 08:55 | Outpatient (BNVA) | payer MEDICARE, SELFPAY | PROVIDERS: PCP Family Medicine; Visit Provider Thoracic Surgery (Cardiothoracic Vascular Surgery) | DX: E11.52 Type 2 diabetes mellitus with diabetic peripheral angiopathy with gangrene (principal); E11.621 Type 2 diabetes mellitus with foot ulcer; L97.412 Non-pressure chronic ulcer of right heel and midfoot with fat layer exposed | CPT/HCPCS: 11042 ==

== ENCOUNTER → 2024-08-02 10:33 | Outpatient (BNVA) | payer MEDICARE, SELFPAY | PROVIDERS: PCP Family Medicine; Visit Provider Thoracic Surgery (Cardiothoracic Vascular Surgery) | DX: E11.52 Type 2 diabetes mellitus with diabetic peripheral angiopathy with gangrene (principal); E11.621 Type 2 diabetes mellitus with foot ulcer; L97.412 Non-pressure chronic ulcer of right heel and midfoot with fat layer exposed | CPT/HCPCS: 11042; A6197 ==

== ENCOUNTER → 2024-08-09 10:23 | Outpatient (BNVA) | payer MEDICARE, SELFPAY | PROVIDERS: PCP Family Medicine; Visit Provider Thoracic Surgery (Cardiothoracic Vascular Surgery) | DX: E11.52 Type 2 diabetes mellitus with diabetic peripheral angiopathy with gangrene (principal); E11.621 Type 2 diabetes mellitus with foot ulcer; L97.412 Non-pressure chronic ulcer of right heel and midfoot with fat layer exposed | CPT/HCPCS: 11042; A6197; A6251 ==

== ENCOUNTER → 2024-08-11 10:45 | Outpatient (BNVA) | payer MEDICARE, SELFPAY | PROVIDERS: PCP Family Medicine; Visit Provider Thoracic Surgery (Cardiothoracic Vascular Surgery) | DX: E11.52 Type 2 diabetes mellitus with diabetic peripheral angiopathy with gangrene (principal); E11.621 Type 2 diabetes mellitus with foot ulcer; L97.411 Non-pressure chronic ulcer of right heel and midfoot limited to breakdown of skin | CPT/HCPCS: 29445; A6210; A6251 ==

== ENCOUNTER → 2024-08-16 10:31 | Outpatient (BNVA) | payer MEDICARE, SELFPAY | PROVIDERS: PCP Family Medicine | DX: E11.52 Type 2 diabetes mellitus with diabetic peripheral angiopathy with gangrene (principal); E11.621 Type 2 diabetes mellitus with foot ulcer; L97.412 Non-pressure chronic ulcer of right heel and midfoot with fat layer exposed | CPT/HCPCS: 11042; A6197; A6251 ==

== ENCOUNTER → 2024-08-18 10:08 | Outpatient (BNVA) | payer MEDICARE, SELFPAY | PROVIDERS: PCP Family Medicine | DX: E11.52 Type 2 diabetes mellitus with diabetic peripheral angiopathy with gangrene (principal); E11.621 Type 2 diabetes mellitus with foot ulcer; L97.411 Non-pressure chronic ulcer of right heel and midfoot limited to breakdown of skin | CPT/HCPCS: 29445; A6197; A6210; A6251 ==

== ENCOUNTER → 2024-08-23 10:20 | Outpatient (BNVA) | payer MEDICARE, SELFPAY | PROVIDERS: PCP Family Medicine; Visit Provider Thoracic Surgery (Cardiothoracic Vascular Surgery) | DX: E11.52 Type 2 diabetes mellitus with diabetic peripheral angiopathy with gangrene (principal); E11.621 Type 2 diabetes mellitus with foot ulcer; L97.411 Non-pressure chronic ulcer of right heel and midfoot limited to breakdown of skin | CPT/HCPCS: 97597; A6021 ==

== ENCOUNTER → 2024-08-30 09:53 | Outpatient (BNVA) | payer MEDICARE, SELFPAY | PROVIDERS: PCP Family Medicine; Visit Provider Thoracic Surgery (Cardiothoracic Vascular Surgery) | DX: E11.52 Type 2 diabetes mellitus with diabetic peripheral angiopathy with gangrene (principal); E11.621 Type 2 diabetes mellitus with foot ulcer; L97.411 Non-pressure chronic ulcer of right heel and midfoot limited to breakdown of skin | CPT/HCPCS: 97597; A6251 ==

== ENCOUNTER → 2024-09-06 10:52 | Outpatient (BNVA) | payer MEDICARE, SELFPAY | PROVIDERS: PCP Family Medicine; Visit Provider Thoracic Surgery (Cardiothoracic Vascular Surgery) | DX: E11.52 Type 2 diabetes mellitus with diabetic peripheral angiopathy with gangrene (principal); E11.621 Type 2 diabetes mellitus with foot ulcer; L97.411 Non-pressure chronic ulcer of right heel and midfoot limited to breakdown of skin | CPT/HCPCS: 87070; 87075; 87077; 87186; 87205; 97597; A6210; A6213; A6252 ==

== ENCOUNTER → 2024-09-13 10:35 | Outpatient (BNVA) | payer MEDICARE, SELFPAY | PROVIDERS: PCP Family Medicine; Visit Provider Thoracic Surgery (Cardiothoracic Vascular Surgery) | DX: E11.52 Type 2 diabetes mellitus with diabetic peripheral angiopathy with gangrene (principal); E11.621 Type 2 diabetes mellitus with foot ulcer; L97.411 Non-pressure chronic ulcer of right heel and midfoot limited to breakdown of skin | CPT/HCPCS: 97597 ==

== ENCOUNTER → 2024-09-20 10:22 | Outpatient (BNVA) | payer MEDICARE, SELFPAY | PROVIDERS: PCP Family Medicine; Visit Provider Thoracic Surgery (Cardiothoracic Vascular Surgery) | DX: E11.52 Type 2 diabetes mellitus with diabetic peripheral angiopathy with gangrene (principal); E11.621 Type 2 diabetes mellitus with foot ulcer; L97.411 Non-pressure chronic ulcer of right heel and midfoot limited to breakdown of skin | CPT/HCPCS: 97597; A6251 ==

== ENCOUNTER → 2024-09-28 10:12 | Outpatient (BNVA) | payer MEDICARE, SELFPAY | PROVIDERS: PCP Family Medicine; Visit Provider Thoracic Surgery (Cardiothoracic Vascular Surgery) | DX: Z09 Encounter for follow-up examination after completed treatment for conditions other than malignant neoplasm (principal); Z87.2 Personal history of diseases of the skin and subcutaneous tissue | CPT/HCPCS: 29445 ==

== ENCOUNTER → 2024-10-04 10:50 | Outpatient (BNVA) | payer MEDICARE, SELFPAY | PROVIDERS: PCP Family Medicine; Visit Provider Thoracic Surgery (Cardiothoracic Vascular Surgery) | DX: Z09 Encounter for follow-up examination after completed treatment for conditions other than malignant neoplasm (principal); Z87.2 Personal history of diseases of the skin and subcutaneous tissue | CPT/HCPCS: 99212; A6210 ==

== ENCOUNTER → 2024-11-08 09:21 | Outpatient (BNVA) | payer MEDICARE, SELFPAY | PROVIDERS: PCP Family Medicine; Visit Provider Podiatrist Foot & Ankle Surgery | DX: E11.8 Type 2 diabetes mellitus with unspecified complications (principal); L60.3 Nail dystrophy; E11.42 Type 2 diabetes mellitus with diabetic polyneuropathy; M14.671 Charcot's joint, right ankle and foot; Q66.81 Congenital vertical talus deformity, right foot; Z79.4 Long term (current) use of insulin | CPT/HCPCS: 11721; 99214 ==

== ENCOUNTER → 2024-12-19 13:27 | Outpatient (BNVA) | payer MEDICARE, SELFPAY | PROVIDERS: PCP Family Medicine; Visit Provider Internal Medicine | DX: R06.09 Other forms of dyspnea (principal); E11.9 Type 2 diabetes mellitus without complications; Z79.4 Long term (current) use of insulin; I10 Essential (primary) hypertension; Z79.82 Long term (current) use of aspirin; Z86.73 Personal history of transient ischemic attack (TIA), and cerebral infarction without residual deficits; R07.9 Chest pain, unspecified | CPT/HCPCS: 93005; 99204 ==

== ENCOUNTER 2024-12-28 07:38 | Outpatient (CLI) | payer MEDICARE, SELFPAY ==
--- NOTE | 2024-12-28 | ECG_ITS ---
[facility] Test Date: 2024-12-28 Pat Name: Katy Noble Department: Room: Gender: Female Shot Packer: : 1945 Requested By: Shakir Vargas Order Number: [id number] Jackson MD: Ced Florez M.D. Interpretive Statements Procedure: A total of 0.4 mg of Lexiscan was infused over 20 seconds. The stress phase was continued for a total of 5 minutes. Sestamibi was injected 20 seconds after the Lexiscan infusion. Vital signs and ECG findings: The baseline blood pressure was 196/82 with a heart rate of 68. Resting EKG showed normal sinus rhythm with mild intraventricular conduction delay and possible old lateral and anterior infarctions. Stress EKG showed no ST-T wave changes. During stress the lowest blood pressure was 123/57 with heart rate 76. In recovery the blood pressure was 157/71 with a heart rate of 84. Conclusion: 1. Normal EKG response to Lexiscan infusion 2. No Lexiscan induced chest pain or cardiac arrhythmia. 3. Normal blood pressure and heart rate response. 4. Nuclear myocardial perfusion scan pending; see separate report. Electronically Signed On 12-29-2024 09:17:14 CDT by Ced Florez M.D. [email or web address]
[2024-12-28 07:58] VITALS: BMI 27.4
--- NOTE | 2024-12-28 07:59 | NMCV_ITS ---
NM tom perf SPECT r/s* [id number] Katy Noble Age: 79 Gender: F : 1945 Exam Date: 12/28/2024 08:56 Ordering Phys: Shakir Vargas M.D ([email or web address]) Technologist: JOSIE Louis Exam Location: [facility] Indications: cp STRESS TEST [facility] IMAGE PROTOCOL Rest/Stress 1 Lexiscan Day Radiopharmaceutical Dose (mCi) Administration Site Administered by Rest: Tc-99m 10.9 IV JOSIE Louis Sestamibi Stress:Tc-99m 32.4 IV JOSIE Parker Sestamibi Rest: 28-Dec-2024 60 Discovery 630 Stress: 28-Dec-2024 30 Discovery 630 0.4mg Lexiscan. Supine position only as patient was unable to lay prone. SPECT RESULTS Technical Quality: Good Raw Data Analysis: Normal Image Corrections: No attenuation or motion correction applied Summed Stress Score: 11 Summed Rest Score: 7 Summed Difference Score: 5 PERFUSION FINDINGS There is a medium sized area of mildly decreased tracer counts in the apical and mid anterolateral wall segments which is reversible on the resting images compared to the stress images. FUNCTIONAL RESULTS (calculated via Gated SPECT) Stress Image LV EF (%): 55 Stress EDV (mL):188 TID: 1.14 Stress ESV (mL):94 FUNCTIONAL FINDINGS: Visually normal left ventricular systolic function with a visually estimated ejection fraction of 55%. IMPRESSIONS 1. Medium sized area of mild ischemia in the apical and mid anterolateral wall segments. 2. Visually normal left ventricular systolic function, EF 55%. Ced Florez MD, FACC (Electronically Signed) Final Date: 28 December 2024 13:04 S
[2024-12-28] MEDS: aminophylline 25 mg/mL SDV 20 mL IVP (09:47)
[2024-12-28 09:51] VITALS: BP 157/61; PULSE 68
== END 2024-12-28 07:39 | disposition home or self-care (01) ==
PROVIDERS: PCP Family Medicine; Visit Provider Internal Medicine
DX: R07.9 Chest pain, unspecified (principal); I99.8 Other disorder of circulatory system
CPT/HCPCS: 36415; 78452; 93017; 96374; 96375; A9500; J0280; J2785

== ENCOUNTER 2025-01-12 22:38 | Emergency (ER) | payer MEDICARE, SELFPAY ==
--- OUTSIDE RECORDS SUMMARY | 2025-01-12 22:45 | XMS_ITS | Encounter Summary ---
Author Organization [employer] Address [address] [facility] [place] [address] [place] [address] Phone Care Team Providers Care Asphalt Layer Name Role Phone Daniel Mae MD Primary Care Provider [phone] Encounter Details Date Type Department Care Team (Late Contact Info) Description 05/21/2020 Orders Only [facility] [employer] [employer] [address] [facility] [place] [address] [place] [address] Erica Martin MA Chronic kidney disease, stage 3b Social History Tobacco Use Types Packs/Day Years Used Date Smoking Tobacco: Never Smokeless Tobacco: Never Alcohol Use Standard Drinks/Week Comments Not Currently 0 (1 standard drink = 0.6 oz pur e alcohol) Comments Unknown Sex and Gender Information Value Date Recorded Sex Assigned at Not on file Legal Sex Female 12:44 PM EST Gender Identity Not on file Sexual Orientation Not on file documented as of this encounter Plan of Treatment Upcoming Encounters Date Type Department Care Team (Late Contact Info) Description 02/20/2025 2:30 PM CDT Office Visit [facility] [employer] [address] [place] [address] Bernarda Talamantes NP [address] [facility] [place] [address] [place] [address] documented as of this encounter Visit Diagnoses Diagnosis Chronic kidney disease, stage 3b documented in this encounter Care Teams Asphalt Layer Relationship Specialty Start Date End Date Daniel Mae MD [address] [address] PCP - General Family Medicine 09/22/18 documented as of this encounter
--- OUTSIDE RECORDS SUMMARY | 2025-01-12 22:45 | XMS_ITS | Encounter Summary ---
Author Organization [email or web address] Address [address] [place] [address] Phone Care Team Providers Care Yoghurt Maker Name Role Phone Daniel Mae MD Primary Care Provider [phone] Encounter Details Date Type Department Care Team (Late st Contact Info) Description 04/19/2020 Orders Only [facility] [address] [place] [id number] Niurka Andre [address] [place] [place] [address] Chronic kidney disease, stage 3b Social History [...] on file documented as of this encounter Progress Notes * Bernarda Talamantes NP - 04/19/2020 11:59 PM CST Please call patient, ask about fluid status and BP readings. Any n/v? Thank you Bernarda Talamantes NP documented in this encounter Plan of Treatment Upcoming Encounters Date Type Department Care Team (Late st Contact Info) Description 02/20/2025 2:30 PM CDT Office Visit [facility] [address] [place] [address] Bernarda Talamantes, CARMITA [address] [place] [place] [address] documented as of this encounter Procedures Procedure Name Priority Date/Time Associated Diagnosis Comments BASIC METABOLIC PANEL Routine 04/18/2020 3:15 PM INTERNAL CONTROLS ANALYST Chronic kidney disease, stage 3b documented in this encounter Results * (ABNORMAL) Basic metabolic panel (04/18/2020 3:15 PM INTERNAL CONTROLS ANALYST) Sodium 138 136 - 145 mmol/L [facility] Potassium 4.1 3.5 - 5.1 mmol/L [facility] Chloride 101 98 - 107 mmol/L [facility] Carbon Dioxide (CO2) 28 22 - 29 mmol/L [facility] Calcium 9.6 8.8 - 10.2 mg/dL [facility] BUN 42(H) 8 - 23 mg/dL [facility] Creatinine 1.99(H) 0.51 - 0.95 mg/dL [facility] Comment:The GFR result is no t clinically significant on patients <18 or >70 years of age. Glucose 60(L) 74 - 99 mg/dL [facility] eGFR Non- 25 mL/min/1.7 3 sq meter [facility] Comment: eGFR has not been validated for use in the elderly (> 70 years of age), women, patients with serious co-morbid conditions, or persons with extremes of body size or muscle mass and should also be interpreted with caution in patients with acute kidney failure, dialysis dependent patients, patients reporting exceptional dietary intake (e.g. vegetarian diet, high protein diets, creatine supplementation), and patients with severe liver disease. Based on National Kidney Disease Education Program If patient is , please refer to the GFR result. eGFR 30 mL/min/1.7 3 sq meter [facility] Anion Gap 9(L) 12 - 20 mmol/L [facility] Comment: TEST COMMENT: Fasting?->No Performed at: [facility] [address] [facility] [address] [place] [address] Supervisor Cabinetmaker: Chelle Acosta M.D. SHERRIE # [id number] Blood specimen (specimen) Venous blood / Unknown 04/18/2020 3:15 PM INTERNAL CONTROLS ANALYST 04/18/2020 3:15 PM INTERNAL CONTROLS ANALYST us Bernarda Talamantes CONVERTIBLE POWER SHOVEL OPERATOR LAB BLOOD ORDERABLES Saskia l Result [facility] documented in this encounter Visit Diagnoses Diagnosis Chronic kidney disease, stage 3b documented in this encounter Care Teams Yoghurt Maker Relationship Specialty Start Date End Date Daniel Mae MD [address] [facility] [address] [place] [phone] PCP - General Family Medicine 09/22/18 documented as of this encounter
--- OUTSIDE RECORDS SUMMARY | 2025-01-12 22:45 | XMS_ITS | Encounter Summary ---
Author Organization [facility] Address [address] [place] [address] Care Team Providers Care Slat Grader Name Role Phone Daniel Mae MD Primary Care Provider [phone] Encounter Details Date Type Department Care Team (Late st Contact Info) Description 11/16/2013 Ancillary Orders [facility] [place] [address] [facility] [address] [place] [address] Anil Matos MD NO ADDRESS ON FILE Breast CA Screening (Primary Dx) Social History Tobacco Use Types Packs/Day Years Used Date Smoking Tobacco: Never Smokeless Tobacco: Never Alcohol Use Standard Drinks/Week Comments Yes 1.7 (1 standard drink = 0.6 oz p ure alcohol) yearly Comments No Sex and Gender Information Value Date Recorded Sex Assigned at Not on file Legal Sex Female 4:24 AM [employer] Gender Identity Not on file Sexual Orientation Not on file Occupation Industry Job Start Date Job End Date Not on file Not on file Not on file Not on file Not on file Not on file Not on file Not on file documented as of this encounter Plan of Treatment Not on file documented as of this encounter Results * MAMMO DIGITIZED STUDY (09/04/2009 1:00 PM CDT) Narrative Lisset Hobbs, RT - 11/16/2013 1:01 PM CDT Order information only. Exam was auto-finalized. Procedure Note Lisset Hobbs, RT - 11/16/2013 Order information only. Exam was auto-finalized. [facility] Momo Croft MD DIAGNOSTIC IMAG ING ORDERABLES Final Result documented in this encounter Visit Diagnoses Diagnosis Breast CA Screening- Primary Other screening mammogram Breast CA Screening Other screening mammogram documented in this encounter Additional Health Concerns Infection Onset Date Last Indicated Resolved Time R/O COVID-19 05/03/2020 05/03/2020 05/03/2020 5:06 AM [employer] documented as of this encounter Care Teams Slat Grader Relationship Specialty Start Date End Date Daniel Mae MD [address] [address] PCP - General Family Practice 12/17/15 documented as of this encounter
--- OUTSIDE RECORDS SUMMARY | 2025-01-12 22:45 | XMS_ITS | Encounter Summary ---
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 Exam was auto-finalized. Procedure Note Lisset Hobbs, RT - 11/16/2013 Order information only. Exam was auto-finalized. 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
--- OUTSIDE RECORDS SUMMARY | 2025-01-12 22:45 | XMS_ITS | Encounter Summary ---
Author Organization [facility] Address [address] [place] [address] Care Team Providers Care Waiter/Waitress Third Class Name Role Phone Daniel Mae MD Primary Care Provider [phone] Encounter Details Date Type Department Care Team (Late st Contact Info) Description 11/16/2013 Ancillary Orders [facility] Medicine [place] 104 [facility] [address] [place] [address] Anil Matos MD NO ADDRESS [...] on file Legal Sex Female 4:24 AM PATTERN ROOM ATTENDANT Gender Identity Not on file Sexual Orientation Not on file Occupation Industry Job Start Date Job End Date Not on file Not on file Not on file Not on file Not on file Not on file Not on file Not on file documented as of this encounter Plan of Treatment Not on file documented as of this encounter Results * MAMMO DIGITIZED STUDY (05/12/2003 12:04 PM PATTERN ROOM ATTENDANT) Narrative Lisset Hobbs RT - 11/16/2013 1:04 PM CDT Order information only. Exam was auto-finalized. Procedure Note Lisset Hobbs, RT - 11/16/2013 Order information only. Exam was auto-finalized. [facility] Momo Croft MD DIAGNOSTIC IMAG ING ORDERABLES Final Result documented in this encounter Visit Diagnoses Diagnosis Breast CA Screening- Primary Other screening mammogram Breast CA Screening Other screening mammogram documented in this encounter Additional Health Concerns Infection Onset Date Last Indicated Resolved Time R/O COVID-19 05/03/2020 05/03/2020 05/03/2020 5:06 AM PATTERN ROOM ATTENDANT documented as of this encounter Care Teams Waiter/Waitress Third Class Relationship Specialty Start Date End Date Daniel Mae MD [address] [address] PCP - General Family Practice 12/17/15 documented as of this encounter
--- OUTSIDE RECORDS SUMMARY | 2025-01-12 22:45 | XMS_ITS | Clinical Summary ---
Author Organization [facility] Address [address] [place] [address] Care Team Providers Care Skiver Sock Linings Name Role Phone Daniel Mae MD Primary Care Provider [phone] Allergies Active Allergy Reactions Criticality Noted Date Comments Codeine Other (see comments),Hives 11/26/2007 Diphenhydramine Other (see comments) 02/23/2008 Only when not diluted. Does ok if med is well diluted. Doxycycline Itching Medium 04/20/2024 Morphine Other (see comments),Swelling 11/26/2007 Tongue swelling Orphenadrine Other (see comments),Nausea And Vomiting 01/05/2009 Other Other (see comments) 12/21/2012 Goes into shock. Fresh frozen platelets Penicillins 09/21/2023 Other Reaction(s): Unknown Sulfa Antibiotics Swelling 11/26/2007 Eyes swelling Medications * This document contains information received from the source organization and may not represent a complete record from that organization. hydroxyurea (HYDREA) 500 MG capsule Take 1 capsule by mouth 1 (one) time each day 019 Active nitroglycerin (NITROSTAT) 0.[address] 1 tablet under the tongue every 5 (five) minutes if needed Active ondansetron ODT (ZOFRAN-ODT) [address] 4 mg under the tongue every 8 (eight) hours if needed 019 Active sertraline (ZOLOFT) 50 MG tablet Take 50 mg by mouth 1 (one) time each day 018 Active famotidine (PEPCID) 20 MG tablet Take 20 mg by mouth 2 (two) times a day if needed Active Tresiba FlexTouch 200 UNIT/ML injection 40 Units 1 (one) time each day 020 Active Insulin Regular Human (HUMULIN R U-500 KWIKPEN SC) Inject under the skin Sliding Scale Active carvedilol (COREG) 25 MG tablet Take 25 mg by mouth in the morning and 25 mg in the evening. Take with meals. 2 tablets bid. Active aspirin (ST DANIEL) 81 MG EC tablet Take 81 mg by mouth 1 (one) time each day Active tiZANidine (ZANAFLEX) 2 MG tablet Take 2 mg by mouth every 6 (six) hours if needed for muscle spasms 024 Active calcitriol (Rocaltrol) 0.25 MCG capsuleIndications:Sec ondary hyperparathyroidism of renal origin (HCC) Take 1 capsule (0.25 mcg total) by mouth 1 (one) time each day 30 capsule 2024 Active atorvastatin (LIPITOR) 20 MG tablet Take 20 mg by mouth 1 (one) time each day 024 Active furosemide (LASIX) 20 MG tablet Take 20 mg by mouth 1 (one) time each day 025 Active hydrALAZINE 25 MG tablet Take 100 mg by mouth in the morning and 100 mg in the evening and 100 mg before bedtime. Take an extra 25 mg if BP is above 200. Active acetaminophen (TYLENOL) 500 MG tablet Take 1,000 mg by mouth 2 (two) times a day if needed for mild pain or moderate pain Active gabapentin (NEURONTIN) 100 MG tabletIndications:Type 2 diabetes mellitus with diabetic neuropathy, not otherwise specified (HCC) Take 3 tablets (300 mg total) by mouth 1 (one) time each day 025 Active lisinopril 5 MG tabletIndications:Pers istent proteinuria Take 1 tablet (5 mg total) by mouth 1 (one) time each day 30 tablet 025 Active amLODIPine (NORVASC) 5 MG tabletIndications:Esse ntial hypertension Take 2 tablets (10 mg total) by mouth 1 (one) time each day 30 tablet 025 Active amLODIPine (NORVASC) 5 MG tabletIndications:Esse ntial hypertension Take 1 tablet by mouth once daily 30 tablet 021 2024 Discontinued lisinopril 5 MG tabletIndications:Pers istent proteinuria Take 1 tablet by mouth once daily 30 tablet 025 2024 Discontinued Active Problems Problem Noted Date Diagnosed Date Coronary arteriosclerosis 07/07/2023 Generalized anxiety disorder 07/03/2020 Microalbuminuric diabetic nephropathy 03/13/2020 Obesity 03/13/2020 Chronic kidney disease, Stage IV (severe) 2018 Overview (05/07/2020): Update for Diagnosis Load Essential hypertension 12/01/2018 Proteinuria 12/01/2018 Secondary hyperparathyroidism of renal origin Vitamin D below reference range 11/25/2018 History of osteomyelitis 01/07/2018 History of cerebrovascular accident 09/30/2016 History of carotid endarterectomy 09/17/2016 Chronic diastolic congestive heart failure 08/20 Type 2 diabetes mellitus 06/29/2015 Overview (12/01/2018): A1C: 6.1 (07/14); 7.5 (05/15); 8.4 (12/12); 9.6 (07/12); 7.7 (11/10); 7.7 (08/11); 9.3 (03/12); 7.8 (12/10); 7.0 (02/08) Microalbumin: 4 (positive); 3 (positive); 7/; 12/10 (Normal) Retinal exam: 04/13 (no retinopathy, Dr. Diehl) Insulin treated type 2 diabetes mellitus 016 Overview (07/07/2023): A1C: 6.1 (07/14); 7.5 (05/15); 8.4 (12/12); 9.6 (07/12); 7.7 (11/10); 7.7 (08/11); 9.3 (03/12); 7.8 (12/10); 7.0 (02/08) Microalbumin: 4/ (positive); 3/ (positive); 7/10; 8 (Normal) Retinal exam: 04/13 (no retinopathy, Dr. Diehl) A1C: 6.1 (07/14); 7.5 (05/15); 8.4 (12/12); 9.6 (07/12); 7.7 (11/10); 7.7 (08/11); 9.3 (03/12); 7.8 (12/10); 7.0 (02/08) Microalbumin: 08/13 (positive); 07/12 (positive); 11/10; 12/10 (Normal) Retinal exam: 04/13 (no retinopathy, Dr. Diehl) Mixed hyperlipidemia 05/04/2013 Iron deficiency anemia 10/06/2012 Overview (12/01/2018): updated due to IMO load import Diverticular disease 08/01/2012 Reflux esophagitis 08/02/2011 Overview (03/13/2020): EGD: 07/13 Gastroparesis due to diabetes mellitus 0 Chronic back pain 12/17/2008 Renal stone 02/24/2008 Peptic ulcer 02/24/2008 Overview (07/07/2023): EGD: 07/13 H Pylori: Neg (05/15) Degeneration of lumbosacral intervertebral disc 02/24/2008 Overview (07/07/2023): S/P L4 Laminectomy, L4-L5 Arthrodesis/Spinal Fusion (Dr. Tello) MRI (03/12): Multilevel deg disease. Probable L2 nerve root impingement. Bulging disc at L3-4 results in canal and foraminal stenosis. MRI (08/09): Multilevel disc bulge through lumbar region. Varying degrees of canal narrowing or stenosis. S/P L4 Laminectomy, L4-L5 Arthrodesis/Spinal Fusion (Dr. Tello) MRI (03/12): Multilevel deg disease. Probable L2 nerve root impingement. Bulging disc at L3-4 results in canal and foraminal stenosis. MRI (08/09): Multilevel disc bulge through lumbar region. Varying degrees of canal narrowing or stenosis. Encounters Date Type Department Care Team Description 01/02/2025 Orders Only [facility] [address] [place] [phone] Mabel Buitrago NP Chronic kidney disease, Stage IV (severe) (HCC) 12/31/2024 Orders Only [facility], [address] [phone] Bernarda Talamantes NP Chronic kidney disease stage 4 (HCC) 12/26/2024 11:30 AM CDT Office Visit [facility] [address] [place] [phone] Mabel Buitrago NP Type 2 diabetes mellitus with complication, not otherwise specified (HCC) (Primary Dx); Persistent proteinuria; Secondary hyperparathyroidism of renal origin (HCC); Microalbuminuric diabetic nephropathy (HCC); Insulin treated type 2 diabetes mellitus (HCC); Essential hypertension; Chronic kidney disease, Stage IV (severe) ([facility]); Chronic diastolic congestive heart failure (HCC) 12/13/2024 Refill [facility] [address] [place] [phone] Bernarda Talamantes NP Persistent proteinuria 12/13/2024 Telephone [facility] [address] [place] [phone] Anna Shetty MD 12/12/2024 Refill [facility] [address] [place] [phone] Bernarda Talamantes NP Persistent proteinuria 11/24/2024 Telephone [facility] [address] [place] [phone] Anna Shetty MD 10/31/2024 3:00 PM CDT Office Visit [facility] [address] [place] [address] Bernarda Talamantes NP Chronic kidney disease stage 4 (HCC) (Primary Dx); Type 2 diabetes mellitus with diabetic neuropathy, not otherwise specified (HCC) 10/28/2024 Telephone [facility], [facility] [address] [place] [address] Anna Shetty MD 10/26/2024 Telephone [facility], [facility] [address] [place] [address] Danyelle Sinha MA 10/26/2024 Orders Only [facility] [place] [address] Bernarda Talamantes NP Stage 3b chronic kidney disease (HCC) from Last 3 Months Immunizations Immunization Administration Dates Next Due Influenza (IM) Preservative Free 02/25/2013 Influenza Split High Dose Pr eservative Free IM 02/05/2017,02/02/2016 Influenza TIV (IM) 01/07/2018, 6,02/19/2012,02/01,02/15/2009,02/29/2008 Influenza, Unspecified 01/07/2018,02/28/2014 Pneumococcal Polysaccharide 04/06/2008 Td 02/16/2007 Family History Medical History Relation Comments Diabetes Brother Heart disease Brother Hypertension Brother Kidney disease Brother Diabetes Father Hypertension Father Stroke Father Dementia Mother Diabetes Mother Heart disease Mother Hypertension Mother Kidney disease Mother Stroke Mother Cancer Paternal Grandfather Diabetes Sibling Gout Sibling Heart disease Sibling Hypertension Sibling Kidney disease Sibling Cancer Sister Kidney disease Sister Relation Status Comments Brother Father Mother Paternal Grandfather Sibling Sister Social History Tobacco Use Types Packs/Day Years Used Date Smoking Tobacco: Never Smokeless Tobacco: Never Tobacco Cessation:Counseling Given: Not Answered Alcohol Use Standard Drinks/Week Comments Not Currently 0 (1 standard drink = 0.6 oz pur e alcohol) Comments Unknown Sex and Gender Information Value Date Recorded Sex Assigned at Not on file Legal Sex Female 12:44 PM EST Gender Identity Not on file Sexual Orientation Not on file Last Filed Vital Signs Vital Sign Reading Time Taken Comments Blood Pressure 160/90 12/26/2024 11:12 AM CDT Pulse 72 12/26/2024 11:12 AM CDT Temperature 36.2 C (97.1 F) 09/20/2020 1:35 PM CDT Respiratory Rate - - Oxygen Saturation 93% 12/26/2024 11:12 AM CDT Inhaled Oxygen Concentration - - Weight 87 kg (191 lb 12.8 oz) 12/26/2024 11:12 A M CDT Height 180.3 cm (5' 11 ) 12/26/2024 11:12 AM CDT Body Mass Index 26.75 12/26/2024 11:12 AM CDT Plan of Treatment Upcoming Encounters Date Type Department Care Team (Late st Contact Info) Description 02/20/2025 2:30 PM CDT Office Visit [facility], [facility] [address] [place] [address] Bernarda Talamantes NP [address] [facility] [address] [place] [address] Health Maintenance Due Date Last Done Comments Diabetes: Ophthalmology Exam 12/01/2018 Diabetes: Pedal Pulse Checked 12/01/2018 Diabetes: Sensory Foot Exam 12/01/2018 Diabetes: Visual Foot Exam 12/01/2018 Diabetes: Hemoglobin A1C 11/06/2020 021, 08/07/2020, 01/16/2020, Additional history exists Pneumococcal Vaccine: 50+ Years (3 of 3 - PCV) 01/15/2021 01/16/2020, 04/06/2008 Influenza Vaccine (#1) 2025 9, 01/07/2018, 01/07/2018, Additional history exists Pneumococcal Vaccine: Peds (0 to 5 Years) and At-Risk Patients (6 to 49 Years) Discontinued 01/16/2020, 04/06/2008 Hepatitis B Vaccine Aged Out No longe r eligible based on patient's age to complete this topic Procedures Procedure Name Priority Date/Time Associated Diagnosis Comments PTH, INTACT Routine 12/13/2024 10:10 AM CDT Chronic kidney disease stage 4 (HCC) URINE ALBUMIN / CREATININE RATIO Routine 12/13/2024 10:10 AM CDT Chronic kidney disease stage 4 (HCC) CBC Routine 12/13/2024 10:10 AM CDT Chronic kidney disease stage 4 (HCC) RENAL FUNCTION PANEL Routine 12/13/2024 10:10 AM CDT Chronic kidney disease stage 4 (HCC) PTH, INTACT Routine 10/29/2024 1:09 AM CDT Stage 3b chronic kidney disease (HCC) URINE ALBUMIN / CREATININE RATIO Routine 10/29/2024 1:09 AM CDT Stage 3b chronic kidney disease (HCC) CBC Routine 10/29/2024 1:09 AM CDT Stage 3b chronic kidney disease (HCC) RENAL FUNCTION PANEL Routine 10/29/2024 1:09 AM CDT Stage 3b chronic kidney disease (HCC) HEMOGLOBIN A1C (EXTERNAL RESULT ENTRY) Routine 08/07/2020 11:04 AM CDT from Last 3 Months or Most Recently Relevant to Health Maintenance Results * (ABNORMAL) Urine albumin / creatinine ratio (12/13/2024 10:10 AM CDT) Only the most recent of2 resultswithin the time period is included. Creatinine, Ur 43 20 - 275 mg/dL [facility] Urine Microalbumin 446.4 See Note: mg/dL [facility] Comment: Reference Range: Reference Range Not established Verified by repeat analysis. Microalb/Creat Ratio 10,381(H) <30 mg/g creat [facility] Comment: The ADA defines abnormalities in albumin excretion as follows: Albuminuria Category Result (mg/g creatinine) Normal to Mildly increased <30 Moderately increased 30-299 Severely increased > OR = 300 The ADA recommends that at least two of three specimens collected within a 3-6 month period be abnormal before considering a patient to be within a diagnostic category. Urine Urine specimen obtained by clean catch procedure / Unknown 12/13/2024 10:10 AM CDT 12/14/2024 5:02 AM CDT Narrative Resulting Agency Comment Performing Organization Information: Site ID: [id number] Name: [facility] Address: [address] [address] Director: Mariposa Kelley MD Bernarda Talamantes ATMOSPHERIC TECHNICIAN LAB URINE ORDERABLES Saskia meyers Result [facility] [address] [address] * (ABNORMAL) CBC without diff (12/13/2024 10:10 AM CDT) Only the most recent of2 resultswithin the time period is included. WBC 16.5(H) 3.8 - 10.8 Thousand/u L [facility] RBC 5.56(H) 3.80 - 5.10 Million/uL [facility] Hemoglobin 13.5 11.7 - 15.5 g/dL [facility] Hematocrit 46.5(H) 35.0 - 45.0 % [facility] MCV 83.6 80.0 - 100.0 fL [facility] MCH 24.3(L) 27.0 - 33.0 pg [facility] MCHC 29.0(L) 32.0 - 36.0 g/dL [facility] Comment: For adults, a slight decrease in the calculated MCHC value (in the range of 30 to 32 g/dL) is most likely not clinically significant; however, it should be interpreted with caution in correlation with other red cell parameters and the patient's clinical condition. RDW 21.4(H) 11.0 - 15.0 % [facility] Platelets 522(H) 140 - 400 Thousand/u L [facility] MPV 9.6 7.5 - 12.5 fL [facility] Blood Venous blood / Unknown 12/13/2024 10:10 AM CDT 12/14/2024 5:02 AM CDT Narrative Resulting Agency Comment Performing Organization Information: Site ID: [facility] Name: [facility] Address: [address] [place] [address] Director: Mariposa Kelley MD Bernarda Talamantes ATMOSPHERIC TECHNICIAN LAB BLOOD ORDERABLES Saskia l Result Performing Organization Address City/[facility] Co de Phone Number [facility] [address] [place] [phone] * (ABNORMAL) PTH, intact (12/13/2024 10:10 AM CDT) Only the most recent of2 resultswithin the time period is included. Parathyroid Hormone, Intact 120(H) 16 - 77 pg/mL [facility] Comment: Interpretive Guide Intact PTH Calcium ------- Normal Parathyroid Normal Normal Hypoparathyroidism Low or Low Normal Low Hyperparathyroidism Primary Normal or High High Secondary High Normal or Low Tertiary High High Non-Parathyroid Hypercalcemia Low or Low Normal High Blood Venous blood / Unknown 12/13/2024 10:10 AM CDT 12/14/2024 5:02 AM CDT Narrative Resulting Agency Comment Performing Organization Information: Site ID: [place] Name: [facility] Address: [address] [place], [place] [address]ner [facility] [place] [address] Director: Mariposa Kellye MD Bernarda Talamantes NP LAB BLOOD ORDERABLES Saskia l Result Performing Organization Address City/[facility] Co de Phone Number [facility] [employer] [address] [place] [address] * (ABNORMAL) Renal function panel (12/13/2024 10:10 AM CDT) Only the most recent of2 resultswithin the time period is included. Glucose 262(H) 65 - 99 mg/dL [facility] Comment: Fasting reference interval For someone without known diabetes, a glucose value >125 mg/dL indicates that they may have diabetes and this should be confirmed with a follow-up test. BUN 47(H) 7 - 25 mg/dL [facility] Creatinine 2.73(H) 0.60 - 1.00 mg/dL [facility] eGFR CKD-EPI CR 2020 17(L) > OR = 60 mL/min/1.7 3m2 [facility] BUN/Creatinine Ratio 17 6 - 22 (calc) [facility] Sodium 137 135 - 146 mmol/L [facility] Potassium 4.6 3.5 - 5.3 mmol/L [facility] Chloride 102 98 - 110 mmol/L [facility] Bicarbonate (CO2) 27 20 - 32 mmol/L [facility] Calcium 8.5(L) 8.6 - 10.4 mg/dL [facility] Phosphorus 5.2(H) 2.1 - 4.3 mg/dL [facility] Albumin 2.6(L) 3.6 - 5.1 g/dL [facility] Blood 12/13/2024 10:1 0 AM CDT 12/14/2024 5:02 AM CDT Narrative Resulting Agency Comment Performing Organization Information: Site ID: [place] Name: [facility] Address: [id number] [place] [address] Director: Mariposa Kelley MD Bernarda Talamantes NP LAB BLOOD ORDERABLES Saskia l Result [facility] [address] * Hemoglobin A1C (08/07/2020 11:04 AM CDT) Hemoglobin A1C 7.0 Blood specimen (specimen) Venous blood / Unknown 08/07/2020 11:04 AM CDT Erica Duran MA - 09/17/2020 9:35 AM CDT [facility] CLIA # [id number], [address] [address] Director: Chelle Acosta MD Daniel Mae MD LAB BLOOD ORDERABLES Final Resu lt from Last 3 Months or Most Recently Relevant to Health Maintenance Insurance Medicare [facility] Care Teams Skiver Sock Linings Relationship Specialty Start Date End Date Daniel Mae MD [address] [phone] PCP - General Family Medicine 09/22/18
--- OUTSIDE RECORDS SUMMARY | 2025-01-12 22:45 | XMS_ITS | Encounter Summary ---
Author Organization [facility] Address [address] [place] [address] Care Team Providers Care Phlebotomy Technician Name Role Phone Daniel Mae MD Primary Care Provider [phone] Encounter Details Date Type Department Care Team (Late st Contact Info) Description 11/16/2013 Ancillary Orders [facility] [place] 104 [facility] [address] [place] [address] Anil Matos MD NO ADDRESS [...] on file Legal Sex Female 4:24 AM SIDE LASTER STAPLE Gender Identity Not on file Sexual Orientation Not on file Occupation Industry Job Start Date Job End Date Not on file Not on file Not on file Not on file Not on file Not on file Not on file Not on file documented as of this encounter Plan of Treatment Not on file documented as of this encounter Results * MAMMO DIGITIZED STUDY (01/21/2007 1:02 PM CDT) Narrative Lisset Hobbs, RT - 11/16/2013 1:02 PM CDT Order information only. Exam was auto-finalized. Procedure Note Lisset Hobbs, RT - 11/16/2013 Order information only. Exam was auto-finalized. [facility] Momo Croft MD DIAGNOSTIC IMAG ING ORDERABLES Final Result documented in this encounter Visit Diagnoses Diagnosis Breast CA Screening- Primary Other screening mammogram Breast CA Screening Other screening mammogram documented in this encounter Additional Health Concerns Infection Onset Date Last Indicated Resolved Time R/O COVID-19 05/03/2020 05/03/2020 05/03/2020 5:06 AM SIDE LASTER STAPLE documented as of this encounter Care Teams Phlebotomy Technician Relationship Specialty Start Date End Date Daniel Mae MD [address] [address] PCP - General Family Practice 12/17/15 documented as of this encounter
--- OUTSIDE RECORDS SUMMARY | 2025-01-12 22:46 | XMS_ITS | Encounter Summary ---
Author Organization [facility] Address [address] [place] [address] Care Team Providers Care Poultice Machine Operator Name Role Phone Daniel Mae MD Primary Care Provider [phone] [phone] Encounter Details Date Type Department Care Team (Latest Contact Info) Description 04/25/2008 Outpatient [facility] [address] [facility] [address] [place] [address] Simon Deluna, [address] [facility] [address] [place] [address] Other Symptoms Referable to Back; Arthrodesis Status; Esophageal Reflux; DM w/o Complication Type II (CMS/HCC); Unspecified Essential Hypertension; Unspecified Constipation; Headache Social History Tobacco Use Types Packs/Day Years Used Date Smoking Tobacco: Never Assessed Comments No Sex and Gender Information Value Date Recorded Sex Assigned at Not on file Legal Sex Female 4:24 AM LABORATORY EQUIPMENT INSTALLER Gender Identity Not on file Sexual Orientation Not on file documented as of this encounter Plan of Treatment Not on file documented as of this encounter Visit Diagnoses Diagnosis Other symptoms referable to back Arthrodesis status Esophageal reflux Type II or unspecified type diabetes mellitus without mention of complication, not stated as uncontrolled Unspecified essential hypertension Unspecified constipation Headache(784.0) Headache documented in this encounter Additional Health Concerns Infection Onset Date Last Indicated Resolved Time R/O COVID-19 05/03/2020 05/03/2020 05/03/2020 5:06 AM LABORATORY EQUIPMENT INSTALLER documented as of this encounter Care Teams Poultice Machine Operator Relationship Specialty Start Date End Date Daniel Mae MD [address] [phone] PCP - General Family Practice 12/17/15 documented as of this encounter
--- OUTSIDE RECORDS SUMMARY | 2025-01-12 22:46 | XMS_ITS | Encounter Summary ---
Author Organization [facility] Address [address] [place] [address] Care Team Providers Care Custom Wood Stair Builder Name Role Phone Daniel Mae MD Primary Care Provider [phone] Encounter Details Date Type Department Care Team (Late st Contact Info) Description 03/15/2008 Outpatient Historical [facility] Pain [facility] [address] [place] [phone] José Warren Social History Tobacco Use Types Packs/Day Years Used Date Smoking Tobacco: Never Assessed Comments No Sex and Gender Information Value Date Recorded Sex Assigned at Not on file Legal Sex Female 4:24 AM COMMERCIAL ILLUSTRATOR Gender Identity Not on file Sexual Orientation Not on file documented as of this encounter Plan of Treatment Not on file documented as of this encounter Visit Diagnoses Not on filedocumented in this encounter Additional Health Concerns Infection Onset Date Last Indicated Resolved Time R/O COVID-19 05/03/2020 05/03/2020 05/03/2020 5:06 AM COMMERCIAL ILLUSTRATOR documented as of this encounter Care Teams Custom Wood Stair Builder Relationship Specialty Start Date End Date Daniel Mae MD [address] [facility] [address] [place] [address] PCP - General Family Practice 12/17/15 documented as of this encounter
--- OUTSIDE RECORDS SUMMARY | 2025-01-12 22:46 | XMS_ITS | Encounter Summary ---
Author Organization [facility] [employer] [facility] Address [address] [facility] [address] [place] [address] Phone Care Team Providers Care Rapid Transit Operator Name Role Phone Daniel Mae MD Primary Care Provider [phone] Encounter Details Date Type Department Care Team (Late Contact Info) Description 01/02/2025 Orders Only [facility] [address] [place] [address] Mabel Buitrago NP [address] [facility] [address] [place] [address] Chronic kidney disease, Stage IV (severe) (HCC) Social History Tobacco Use Types Packs/Day Years [...] Description 02/20/2025 2:30 PM CDT Office Visit [employer] [facility] [address] [place] [address] Bernarda Talamantes NP [address] [place] [address] [place] [address] documented as of this encounter Visit Diagnoses Diagnosis Chronic kidney disease, Stage IV (severe) (HCC) Chronic kidney disease, Stage IV (severe) documented in this encounter Care Teams Rapid Transit Operator Relationship Specialty Start Date End Date Daniel Mae MD [address] [phone] PCP - General Family Medicine 09/22/18 documented as of this encounter
--- OUTSIDE RECORDS SUMMARY | 2025-01-12 22:46 | XMS_ITS | Encounter Summary ---
Author Organization [facility] Address [address] [place] [address] Care Team Providers Care Safety Lamp Keeper Name Role Phone Daniel Mae MD Primary Care Provider [phone] Encounter Details Date Type Department Care Team (Latest Contact Info) Description 11/02/2007 Outpatient Historical [facility] [address] [place] [address] José Warren Disorders of Sacrum; Unspecified Essential Hypertension; DM w/o Complication Type II (CMS/HCC); Esophageal Reflux; Unspecified Constipation; Personal History of Allergy to Sulfonamides; Personal History of Allergy to Narcotic Agent; Personal History of Allergy to Analgesic Agent Social History Tobacco Use Types Packs/Day Years Used Date Smoking Tobacco: Never Assessed Comments Unknown Sex and Gender Information Value Date Recorded Sex Assigned at Not on file Legal Sex Female 4:24 AM ORACLE BUSINESS ANALYST Gender Identity Not on file Sexual Orientation Not on file documented as of this encounter Plan of Treatment Not on file documented as of this encounter Procedures Procedure Name Priority Date/Time Associated Diagnosis Comments XR FLUORO GREATER THAN 1 HOUR Routine 11/09/2007 7:50 AM CDT documented in this encounter Results * XR FLUORO > 1 HOUR (11/09/2007 7:50 AM CDT) Anatomical Region Laterality Modality Other 11/09/2007 7:50 AM CDT Narrative 11/09/2007 7:50 AM CDT Finalized by interface cleanup utility. No report expected. Procedure Note 05/14/2008 Finalized by interface cleanup utility. No report expected. José [facility] DI[facility]NOSTIC IMAGING ORDERABLES Fi nal Result documented in this encounter Visit Diagnoses Diagnosis Disorders of sacrum Unspecified essential hypertension Type II or unspecified type diabetes mellitus without mention of complication, not stated as uncontrolled Esophageal reflux Unspecified constipation Personal history of allergy to sulfonamides Personal history of allergy to narcotic agent Personal history of allergy to analgesic agent documented in this encounter Additional Health Concerns Infection Onset Date Last Indicated Resolved Time R/O COVID-19 05/03/2020 05/03/2020 05/03/2020 5:06 AM ORACLE BUSINESS ANALYST documented as of this encounter Care Teams Safety Lamp Keeper Relationship Specialty Start Date End Date Daniel Mae MD [address] [phone] PCP - General Family Practice 12/17/15 documented as of this encounter
--- OUTSIDE RECORDS SUMMARY | 2025-01-12 22:46 | XMS_ITS | Encounter Summary ---
Author Organization [facility] Address [address] [place] [address] Care Team Providers Care Piece Dye Worker Name Role Phone Daniel Mae MD Primary Care Provider [phone] Encounter Details Date Type Department Care Team (Late st Contact Info) Description 01/14/2008 Outpatient Historical [facility] José Warren Social History Tobacco Use Types Packs/Day Years Used Date Smoking Tobacco: Never Assessed Comments No Sex and Gender Information Value Date Recorded Sex Assigned at Not on file Legal Sex Female 4:24 AM PLANT TECHNICIAN Gender Identity Not on file Sexual Orientation Not on file documented as of this encounter Plan of Treatment Not on file documented as of this encounter Visit Diagnoses Not on filedocumented in this encounter Additional Health Concerns Infection Onset Date Last Indicated Resolved Time R/O COVID-19 05/03/2020 05/03/2020 05/03/2020 5:06 AM PLANT TECHNICIAN documented as of this encounter Care Teams Piece Dye Worker Relationship Specialty Start Date End Date Daniel Mae MD [address] [facility] [address] [place] [address] PCP - General Family Practice 12/17/15 documented as of this encounter
--- OUTSIDE RECORDS SUMMARY | 2025-01-12 22:46 | XMS_ITS | Encounter Summary ---
Author Organization [facility] [employer] Address [address] [place] [address] Phone Care Team Providers Care Job Training Supervisor Name Role Phone Daniel Mae MD Primary Care Provider [phone] Encounter Details Date Type Department Care Team (Late Contact Info) Description 04/02/2019 Orders Only [facility] [address] [place] [address] Jenniffer Velazquez NP H/O: gout; Chronic kidney disease stage 3 (HCC) Social History Tobacco Use Types Packs/Day [...] Description 02/20/2025 2:30 PM CDT Office Visit [employer] [address] [place] [address] Bernarda Talamantes NP [address] [place] [place] [address] documented as of this encounter Procedures Procedure Name Priority Date/Time Associated Diagnosis Comments URINE ALBUMIN / CREATININE RATIO Routine 03/14/2019 11:19 AM HAND DRILLER Chronic kidney disease stage 3 (HCC) VITAMIN D 25 HYDROXY Routine 03/14/2019 11:19 AM HAND DRILLER Chronic kidney disease stage 3 (HCC) CBC Routine 03/14/2019 11:19 AM HAND DRILLER Chronic kidney disease stage 3 (HCC) PTH, INTACT Routine 03/14/2019 11:19 AM HAND DRILLER Chronic kidney disease stage 3 (HCC) RENAL FUNCTION PANEL Routine 03/14/2019 11:19 AM HAND DRILLER Chronic kidney disease stage 3 (HCC) documented in this encounter Results * Vit D 25 hydroxy (03/14/2019 11:19 AM HAND DRILLER) Vitamin D, 25-OH, Total 29 ng/mL Blood specimen (specimen) Venous blood / Unknown 03/14/2019 11:19 AM HAND DRILLER Narrative Ibeth Nolan LPN - 03/15/2019 10:46 AM HAND DRILLER Post appt lab [facility], [place] # [id number] [address] [place], [place] [address] DIRECTOR: LIZ SAN MD [facility] [phone] Jenniffer Velazquez MEAT STRINGER LAB BLOOD ORDERABLES Final Result * PTH, intact (03/14/2019 11:19 AM HAND DRILLER) Parathyroid Hormone, Intact 111.0 pg/mL Blood specimen (specimen) Venous blood / Unknown 03/14/2019 11:19 AM HAND DRILLER Narrative Montse Lim LPN - 03/14/2019 10:43 PM HAND DRILLER door captain lab [facility], [place] # [id number] [address] [place] [address] DIRECTOR: LIZ SAN MD [facility] [phone] Jenniffer Velazquez MEAT STRINGER LAB BLOOD ORDERABLES Final Result * Urine albumin / creatinine ratio (03/14/2019 11:19 AM HAND DRILLER) Protein, Ur 9 Creatinine, Ur 49.9 mg/dL Urine Protein/Creatin ine Ratio 0.18 mg/g creat Urine specimen (specimen) Urine specimen obtained by clean catch procedure / Unknown 03/14/2019 11:19 AM HAND DRILLER Jenniffer Velazquez MEAT STRINGER LAB URINE ORDERABLES Final Result * CBC (03/14/2019 11:19 AM HAND DRILLER) WBC 7.4 K/uL Red Blood Cell Count 3.18 Hemoglobin 9.8 g/dL Hematocrit 31.9 % MCV 100.3 MCH 30.8 MCHC 30.7 RDW 20.1 Platelet Count 378 MPV 10.0 Absolute Neutrophils 5.18 Absolute Lymphocytes 1.30 Absolute Monocytes 0.59 Absolute Eosinophils 0.26 Absolute Basophils 0.03 Neutrophils 70 K/uL Lymphocytes 18 Monocytes 8 Eosinophils 4 Basophils 0 Blood specimen (specimen) Venous blood / Unknown 03/14/2019 11:19 AM HAND DRILLER Narrative Niurka Andre - 03/14/2019 1:33 PM HAND DRILLER [id number] [address] [place] [address] Director: Chelle Acosta MD Jenniffer Velazquez MEAT STRINGER LAB BLOOD ORDERABLES Final Result * (ABNORMAL) Renal function panel (03/14/2019 11:19 AM [facility]) Albumin 4.1 3.5 - 5.0 g/dL BUN 32(A) 4 - 21 mg/dL Calcium 9.8 8.7 - 10.7 mg/dL Chloride 94(A) 99 - 108 Bicarbonate (CO2) 28 22 - 30 mmol/L Creatinine 1.15(A) 0.50 - 1.10 mg/dL eGFR 56.0 mL/min/1.7 3m*2 eGFR Non- 47.0 mL/min/1.7 3m*2 Glucose 152 Phosphorus, Serum 3.0 Potassium 3.7 3.4 - 5.5 Sodium 134(A) 137 - 147 Blood specimen (specimen) Venous blood / Unknown 03/14/2019 11:19 AM HAND DRILLER Jenniffer Velazquez MEAT STRINGER LAB BLOOD ORDERABLES Final Result documented in this encounter Visit Diagnoses Diagnosis H/O: gout Chronic kidney disease stage 3 (HCC) documented in this encounter Care Teams Job Training Supervisor Relationship Specialty Start Date End Date Daniel Mae MD [address] [phone] PCP - General Family Medicine 09/22/18 documented as of this encounter
--- OUTSIDE RECORDS SUMMARY | 2025-01-12 22:46 | XMS_ITS | Encounter Summary ---
Author Organization [facility] Address [address] [place] [address] Care Team Providers Care Sole Molding Machine Operator Name Role Phone Daniel Mae MD Primary Care Provider [phone] Encounter Details Date Type Department Care Team (Late st Contact Info) Description 11/09/2007 Outpatient Historical [facility] [address] [place] [phone] José Warren Social History Tobacco Use Types Packs/Day Years Used Date Smoking Tobacco: Never Assessed Comments Unknown Sex and Gender Information Value Date Recorded Sex Assigned at Not on file Legal Sex Female 4:24 AM HULL OUTFIT SUPERVISOR Gender Identity Not on file Sexual Orientation Not on file documented as of this encounter Plan of Treatment Not on file documented as of this encounter Visit Diagnoses Not on filedocumented in this encounter Additional Health Concerns Infection Onset Date Last Indicated Resolved Time R/O COVID-19 05/03/2020 05/03/2020 05/03/2020 5:06 AM HULL OUTFIT SUPERVISOR documented as of this encounter Care Teams Sole Molding Machine Operator Relationship Specialty Start Date End Date Daniel Mae MD [address] [facility] [address] [place] [address] PCP - General Family Practice 12/17/15 documented as of this encounter
--- OUTSIDE RECORDS SUMMARY | 2025-01-12 22:46 | XMS_ITS | Encounter Summary ---
Author Organization [facility] Address [address] [place] [address] Care Team Providers Care Wood Borer Name Role Phone Daniel Mae MD Primary Care Provider [phone] Encounter Details Date Type Department Care Team (Late st Contact Info) Description 09/06/2009 Ancillary Orders [facility] Imaging External Read [address] [place] [address] Deshawn Alejandra MD NO ADDRESS ON FILE Screening Mammogram Social History Tobacco Use Types Packs/Day Years Used Date Smoking Tobacco: Never Alcohol Use Standard Drinks/Week Comments Yes 1.7 (1 standard drink = 0.6 oz p ure alcohol) yearly Comments No Sex and Gender Information Value Date Recorded Sex Assigned at Not on file Legal Sex Female 4:24 AM PROGRAMMING DEVELOPMENT PROJECT MANAGER Gender Identity Not on file Sexual Orientation Not on file documented as of this encounter Plan of Treatment Not on file documented as of this encounter Results * MAMMO SCREENING BILAT (09/06/2009 9:35 AM CDT) Anatomical Region Laterality Modality Breast Bilateral Mammography Narrative 09/11/2009 7:51 AM CDT BILATERAL SCREENING MAMMOGRAM - 09.04.10: Comparison is made to previous studies from [facility] in [place], [place], dated 01.21.07 and 05.12.03. Both breasts primarily fatty-replaced. A small amount of tissue present in a pattern similar to the prior studies. Two areas of asymmetric nodular tissue in the lateral central portion of the right breast on the CC view unchanged from the 2004 study. Occasional benign-type calcifications. No suspicious findings have developed. This mammogram was also analyzed by the Computer Aided Detection system (CAD), R2 ImageChecker, Version 3.1. SUMMARY: Negative for malignancy. I would recommend a bilateral screening in one year's time. Procedure Note Juan David Bobo MD - 09/11/2009 BILATERAL SCREENING MAMMOGRAM - 09.04.10: Comparison is made to previousstudies from [facility] in [place], [place], dated01.21.07 and 05.12.03. Both breasts primarily fatty-replaced. A small amount of tissue presentin a pattern similar to the prior studies. Two areas of asymmetricnodular tissue in the lateral central portion of the right breast on theCC view unchanged from the 2004 study. Occasional benign-typecalcifications. No suspicious findings have developed. This mammogram was also analyzed by the Computer Aided Detection system(CAD), R2 ImageChecker, Version 3.1. SUMMARY: Negative for malignancy. I would recommend a bilateral screeningin one year's time. Deshawn Alejandra MD MAMMO ORDERABLES Final Res ult documented in this encounter Visit Diagnoses Diagnosis Screening mammogram Other screening mammogram documented in this encounter Additional Health Concerns Infection Onset Date Last Indicated Resolved Time R/O COVID-19 05/03/2020 05/03/2020 05/03/2020 5:06 AM PROGRAMMING DEVELOPMENT PROJECT MANAGER documented as of this encounter Care Teams Wood Borer Relationship Specialty Start Date End Date Daniel Mae MD [address] [address] PCP - General Family Practice 12/17/15 documented as of this encounter
--- OUTSIDE RECORDS SUMMARY | 2025-01-12 22:46 | XMS_ITS | Encounter Summary ---
Author Organization [facility] Address [address] [place] [address] Care Team Providers Care Body Man Name Role Phone Daniel Mae MD Primary Care Provider [phone] Encounter Details Date Type Department Care Team (Late st Contact Info) Description 12/07/2007 Outpatient Historical [facility] Pain [facility] [address] [place] [phone] José Warren Social History Tobacco Use Types Packs/Day Years Used Date Smoking Tobacco: Never Assessed Comments No Sex and Gender Information Value Date Recorded Sex Assigned at Not on file Legal Sex Female 4:24 AM STRADDLE BUG Gender Identity Not on file Sexual Orientation Not on file documented as of this encounter Plan of Treatment Not on file documented as of this encounter Visit Diagnoses Not on filedocumented in this encounter Additional Health Concerns Infection Onset Date Last Indicated Resolved Time R/O COVID-19 05/03/2020 05/03/2020 05/03/2020 5:06 AM STRADDLE BUG documented as of this encounter Care Teams Body Man Relationship Specialty Start Date End Date Daniel Mae MD [address] [facility] [address] [place] [address] PCP - General Family Practice 12/17/15 documented as of this encounter
--- OUTSIDE RECORDS SUMMARY | 2025-01-12 22:46 | XMS_ITS | Encounter Summary ---
Author Organization [facility] Address [address] [place] [address] Care Team Providers Care Trash Man Name Role Phone Daniel Mae MD Primary Care Provider [phone] Encounter Details Date Type Department Care Team (Late st Contact Info) Description 08/27/2007 Outpatient Historical [facility] [address] [place] [phone] José Warren Social History Tobacco Use Types Packs/Day Years Used Date Smoking Tobacco: Never Assessed Comments Unknown Sex and Gender Information Value Date Recorded Sex Assigned at Not on file Legal Sex Female 4:24 AM SUPERVISOR CRACK OFF Gender Identity Not on file Sexual Orientation Not on file documented as of this encounter Plan of Treatment Not on file documented as of this encounter Visit Diagnoses Not on filedocumented in this encounter Additional Health Concerns Infection Onset Date Last Indicated Resolved Time R/O COVID-19 05/03/2020 05/03/2020 05/03/2020 5:06 AM SUPERVISOR CRACK OFF documented as of this encounter Care Teams Trash Man Relationship Specialty Start Date End Date Daniel Mae MD [address] [facility] [address] [place] [phone] PCP - General Family Practice 12/17/15 documented as of this encounter
--- OUTSIDE RECORDS SUMMARY | 2025-01-12 22:46 | XMS_ITS | Encounter Summary ---
Author Organization [facility] Address [address] [place] [address] Care Team Providers Care Panama Hat Hydraulic Press Operator Name Role Phone Daniel Mae MD Primary Care Provider [phone] Encounter Details Date Type Department Care Team (Late st Contact Info) Description 12/28/2007 Outpatient Historical [facility] [address] [place] [address] José Warren Social History Tobacco Use Types Packs/Day Years Used Date Smoking Tobacco: Never Assessed Comments No Sex and Gender Information Value Date Recorded Sex Assigned at Not on file Legal Sex Female 4:24 AM SUPERVISOR LAST MODEL DEPARTMENT Gender Identity Not on file Sexual Orientation Not on file documented as of this encounter Plan of Treatment Not on file documented as of this encounter Visit Diagnoses Not on filedocumented in this encounter Additional Health Concerns Infection Onset Date Last Indicated Resolved Time R/O COVID-19 05/03/2020 05/03/2020 05/03/2020 5:06 AM SUPERVISOR LAST MODEL DEPARTMENT documented as of this encounter Care Teams Panama Hat Hydraulic Press Operator Relationship Specialty Start Date End Date Daniel Mae MD [address] [facility] [address] [place] [phone] PCP - General Family Practice 12/17/15 documented as of this encounter
--- OUTSIDE RECORDS SUMMARY | 2025-01-12 22:46 | XMS_ITS | Encounter Summary ---
Author Organization [facility] Address [address] [place] [address] Care Team Providers Care Service Observer Chief Name Role Phone Daniel Mae MD Primary Care Provider [phone] Encounter Details Date Type Department Care Team (Late st Contact Info) Description 10/12/2007 Outpatient Historical [facility] Pain [facility] [address] [place] [phone] José Warren Social History Tobacco Use Types Packs/Day Years Used Date Smoking Tobacco: Never Assessed Comments Unknown Sex and Gender Information Value Date Recorded Sex Assigned at Not on file Legal Sex Female 4:24 AM FOURTH HAND Gender Identity Not on file Sexual Orientation Not on file documented as of this encounter Plan of Treatment Not on file documented as of this encounter Visit Diagnoses Not on filedocumented in this encounter Additional Health Concerns Infection Onset Date Last Indicated Resolved Time R/O COVID-19 05/03/2020 05/03/2020 05/03/2020 5:06 AM FOURTH HAND documented as of this encounter Care Teams Service Observer Chief Relationship Specialty Start Date End Date Daniel Mae MD [address] [facility] [address] [place] [address] PCP - General Family Practice 12/17/15 documented as of this encounter
--- OUTSIDE RECORDS SUMMARY | 2025-01-12 22:46 | XMS_ITS | Encounter Summary ---
Author Organization [facility] Address [address] [place] [address] Care Team Providers Care Chief Information Officer Name Role Phone Daniel Mae MD Primary Care Provider +1 [phone] Encounter Details Date Type Department Care Team (Late st Contact Info) Description 10/26/2007 Outpatient Historical [facility] [address] [place] [id number] José Warren Social History Tobacco Use Types Packs/Day Years Used Date Smoking Tobacco: Never Assessed Comments Unknown Sex and Gender Information Value Date Recorded Sex Assigned at Not on file Legal Sex Female 4:24 AM ALEMITE OPERATOR Gender Identity Not on file Sexual Orientation Not on file documented as of this encounter Plan of Treatment Not on file documented as of this encounter Visit Diagnoses Not on filedocumented in this encounter Additional Health Concerns Infection Onset Date Last Indicated Resolved Time R/O COVID-19 05/03/2020 05/03/2020 05/03/2020 5:06 AM ALEMITE OPERATOR documented as of this encounter Care Teams Chief Information Officer Relationship Specialty Start Date End Date Daniel Mae MD [address] [facility] [address] [place] [address] PCP - General Family Practice 12/17/15 documented as of this encounter
--- OUTSIDE RECORDS SUMMARY | 2025-01-12 22:46 | XMS_ITS | Encounter Summary ---
Author Organization [facility] Address [address] [place] [address] Care Team Providers Care Calender Let Off Operator Name Role Phone Daniel Mae MD Primary Care Provider +1 [phone] Encounter Details Date Type Department Care Team (Latest Contact Info) Description 09/04/2007 Outpatient Historical [facility] Pain Management Procedures [address] [place] [address] José Warren Unspecified Essential Hypertension; DM w/o Complication Type II (CMS/HCC); Encounter for Long-Term (Current) Use of Insulin ([facility]); Unspecified Constipation; Personal History of Allergy to Sulfonamides; Personal History of Allergy to Other Anti-Infective Agent; Personal History of Allergy to Narcotic Agent; Personal History of Allergy to Analgesic Agent Social History Tobacco Use Types Packs/Day Years Used Date Smoking Tobacco: Never Assessed Comments Unknown Sex and Gender Information Value Date Recorded Sex Assigned at Not on file Legal Sex Female 4:24 AM COMPENSATION CONSULTANT Gender Identity Not on file Sexual Orientation Not on file documented as of this encounter Plan of Treatment Not on file documented as of this encounter Procedures Procedure Name Priority Date/Time Associated Diagnosis Comments XR FLUORO GREATER THAN 1 HOUR Routine 09/08/2007 3:29 PM CDT documented in this encounter Results * XR FLUORO > 1 HOUR (09/08/2007 3:29 PM CDT) Anatomical Region Laterality Modality Other 09/08/2007 3:29 PM CDT Narrative 09/08/2007 3:29 PM CDT Finalized by interface cleanup utility. No report expected. Procedure Note 05/14/2008 Finalized by interface cleanup utility. No report expected. José Warren DIAGNOSTIC IMAGING ORDERABLES Fi nal Result documented in this encounter Visit Diagnoses Diagnosis Unspecified essential hypertension Type II or unspecified type diabetes mellitus without mention of complication, not stated as uncontrolled Encounter for long-term (current) use of insulin ([facility]) Encounter for long-term (current) use of insulin Unspecified constipation Personal history of allergy to sulfonamides Personal history of allergy to other anti-infective agent Personal history of allergy to narcotic agent Personal history of allergy to analgesic agent documented in this encounter Additional Health Concerns Infection Onset Date Last Indicated Resolved Time R/O COVID-19 05/03/2020 05/03/2020 05/03/2020 5:06 AM COMPENSATION CONSULTANT documented as of this encounter Care Teams Calender Let Off Operator Relationship Specialty Start Date End Date Daniel Mae MD [address] [address] PCP - General Family Practice 12/17/15 documented as of this encounter
--- OUTSIDE RECORDS SUMMARY | 2025-01-12 22:46 | XMS_ITS | Encounter Summary ---
Author Organization [facility] Address [address] [place] [address] Care Team Providers Care Automatic Seamer Name Role Phone Daniel Mae MD Primary Care Provider +1 [phone] Encounter Details Date Type Department Care Team (Late st Contact Info) Description 04/01/2008 Outpatient Historical [facility] Augie Tello MD [address] [address] Unspecified Essential Hypertension; DM w/o Complication Type II (CMS/HCC); Encounter for Long-Term (Current) Use of Insulin (CMS/HCC); Esophageal Reflux; Obesity, Unspecified Social History Tobacco Use Types Packs/Day Years Used Date Smoking Tobacco: Never Assessed Comments No Sex and Gender Information Value Date Recorded Sex Assigned at Not on file Legal Sex Female 4:24 AM MANAGER HOUSE Gender Identity Not on file Sexual Orientation Not on file documented as of this encounter Plan of Treatment Not on file documented as of this encounter Procedures Procedure Name Priority Date/Time Associated Diagnosis Comments POC GLUCOSE Routine 04/19/2008 11:24 AM MANAGER HOUSE POC GLUCOSE Routine 04/19/2008 6:41 AM MANAGER HOUSE POC GLUCOSE Routine 04/19/2008 12:33 AM MANAGER HOUSE POC GLUCOSE Routine 04/19/2008 12:33 AM MANAGER HOUSE POC GLUCOSE Routine 04/18/2008 10:05 PM MANAGER HOUSE POC GLUCOSE Routine 04/18/2008 6:04 PM MANAGER HOUSE POC GLUCOSE Routine 04/18/2008 11:15 AM MANAGER HOUSE POC GLUCOSE Routine 04/18/2008 7:32 AM MANAGER HOUSE CBC WITH DIFFERENTIAL Routine 04/18/2008 6:17 AM MANAGER HOUSE BASIC METABOLIC PANEL Routine 04/18/2008 6:17 AM MANAGER HOUSE POC GLUCOSE Routine 04/17/2008 9:00 PM MANAGER HOUSE POC GLUCOSE Routine 04/17/2008 5:30 PM MANAGER HOUSE POC GLUCOSE Routine 04/17/2008 2:59 PM MANAGER HOUSE POC GLUCOSE Routine 04/17/2008 10:13 AM MANAGER HOUSE XR FLUORO GREATER THAN 1 HOUR Routine 04/17/2008 10:05 AM MANAGER HOUSE CBC WITHOUT DIFFERENTIAL Stat 04/17/2008 7:59 AM MANAGER HOUSE POC GLUCOSE Routine 04/17/2008 5:54 AM MANAGER HOUSE documented in this encounter Results * (ABNORMAL) POC GLUCOSE (04/19/2008 11:24 AM MANAGER HOUSE) GLUCOSE POC 158(H) 60 - 100 mg/dL [facility] Venous blood specimen (specimen) 04/19/2008 11:24 AM MANAGER HOUSE 04/20/2008 3:11 AM MANAGER HOUSE us Augie Tello MD POINT OF CARE TESTING Final Re sult INTERFACE SYSTEM Refer to clinic/hospital department [facility] CLIA# [id number] [address] [place] [address] * (ABNORMAL) POC GLUCOSE (04/19/2008 6:41 AM MANAGER HOUSE) GLUCOSE POC 204(H) 60 - 100 mg/dL [facility] Venous blood specimen (specimen) 04/19/2008 6:41 AM MANAGER HOUSE 04/20/2008 3:18 AM MANAGER HOUSE us Augie Tello MD POINT OF CARE TESTING Final Re sult Performing Organization Address [facility] de Phone Number INTERFACE SYSTEM Refer to clinic/hospital department [facility] CLIA# [id number] [address] [place] [address] * (ABNORMAL) POC GLUCOSE (04/19/2008 12:33 AM MANAGER HOUSE) GLUCOSE POC 131(H) 60 - 100 mg/dL [facility] Venous blood specimen (specimen) 04/19/2008 12:33 AM MANAGER HOUSE 04/19/2008 7:15 AM MANAGER HOUSE us Augie Tello MD POINT OF CARE TESTING Final Re sult Performing Organization Address [facility] de Phone Number INTERFACE SYSTEM Refer to clinic/hospital department [facility] CLIA# [id number] [address] [place] [address] * (ABNORMAL) POC GLUCOSE (04/19/2008 12:33 AM MANAGER HOUSE) GLUCOSE POC 131(H) 60 - 100 mg/dL [facility] Venous blood specimen (specimen) 04/19/2008 12:33 AM MANAGER HOUSE 04/19/2008 2:02 AM MANAGER HOUSE us Augie Tello MD POINT OF CARE TESTING Final Re sult Performing Organization Address [facility] Co de Phone Number INTERFACE SYSTEM Refer to clinic/hospital department [facility] CLIA# [id number] [address] [place] [address] * POC GLUCOSE (04/18/2008 10:05 PM MANAGER HOUSE) GLUCOSE POC 81 60 - 100 mg/dL [facility] Venous blood specimen (specimen) 04/18/2008 10:05 PM MANAGER HOUSE 04/19/2008 2:02 AM MANAGER HOUSE us Augie Tello MD POINT OF CARE TESTING Final Re sult Performing Organization Address [facility] de Phone Number INTERFACE SYSTEM Refer to clinic/hospital department [facility] CLIA# [id number] [address] [place] [address] * (ABNORMAL) POC GLUCOSE (04/18/2008 6:04 PM MANAGER HOUSE) GLUCOSE POC 195(H) 60 - 100 mg/dL [facility] Venous blood specimen (specimen) 04/18/2008 6:04 PM MANAGER HOUSE 04/19/2008 6:13 PM MANAGER HOUSE us Augie Tello MD POINT OF CARE TESTING Final Re sult Performing Organization Address [facility] de Phone Number INTERFACE SYSTEM Refer to clinic/hospital department [facility] CLIA# [id number] [address] [place] [address] * POC GLUCOSE (04/18/2008 11:15 AM MANAGER HOUSE) GLUCOSE POC 94 60 - 100 mg/dL [facility] Venous blood specimen (specimen) 04/18/2008 11:15 AM MANAGER HOUSE 04/19/2008 2:02 AM MANAGER HOUSE us Augie Tello MD POINT OF CARE TESTING Final Re sult Performing Organization Address [facility] de Phone Number INTERFACE SYSTEM Refer to clinic/hospital department [facility] CLIA# [id number] [address] [place] [address] * (ABNORMAL) POC GLUCOSE (04/18/2008 7:32 AM MANAGER HOUSE) [facility] GLUCOSE POC 225(H) 60 - 100 mg/dL [facility] Venous blood specimen (specimen) 04/18/2008 7:32 AM MANAGER HOUSE 04/19/2008 2:02 AM MANAGER HOUSE Augie Tello MD POINT OF CARE TESTING Final Re sult Performing Organization Address [facility] de Phone Number INTERFACE SYSTEM Refer to clinic/hospital department [facility] CLIA# [id number] [address] [place] [address] * (ABNORMAL) BASIC METABOLIC PANEL (04/18/2008 6:17 AM MANAGER HOUSE) [facility] POTASSIUM 3.5 3.5 - 5.0 mEq/L [facility] OSMOLALITY, CALCULATED 277 275 - 295 mOsm/Kg [facility] CREATININE 0.7 0.7 - 1.2 mg/dL [facility] CALCIUM 9.2 8.4 - 10.5 mg/dL [facility] GLUCOSE 208(H) 70 - 110 mg/dL [facility] CHLORIDE 93(L) 95 - 110 mEq/L [facility] ANION GAP 12 9 - 20 mEq/L [facility] SODIUM 132(L) 136 - 145 mEq/L [facility] BUN 9 7 - 17 mg/dL [facility] CO2 31 22 - 32 mmol/l [facility] Blood specimen (specimen) 04/18/2008 6:17 AM MANAGER HOUSE 04/18/2008 6:47 AM MANAGER HOUSE us Augie Tello MD CHEMISTRY ORDERABLES Final Res ult Performing Organization Address [facility] de Phone Number INTERFACE SYSTEM Refer to clinic/hospital department [facility] CLIA# [id number] [facility] [place] [address] * (ABNORMAL) CBC WITH DIFFERENTIAL (04/18/2008 6:17 AM MANAGER HOUSE) MONOCYTES 7.3 2.0 - 10.0 % [facility] BASOPHILS ABSOLUTE 0.0 0.0 - 0.2 K/ul [facility] MCH 25.8(L) 27.0 - 34.0 pg [facility] EOSINOPHILS 0.9 0.0 - 7.0 % [facility] NEUTROPHILS 81.5(H) 42.2 - 75.2 % [facility] MONOCYTE ABSOLUTE 0.7(H) 0.1 - 0.6 K/ul [facility] BASOPHILS 0.2 0.0 - 1.0 % [facility] MCV 80.6(L) 84.0 - 103.0 Fl [facility] PLATELETS 341 140 - 440 K/ul [facility] NEUTROPHIL ABSOLUTE 7.5 2.0 - 8.0 K/ul [facility] HEMOGLOBIN 9.7(L) 12.0 - 16.0 g/dL [facility] LYMPHOCYTES 10.1(L) 24.0 - 44.0 % [facility] MCHC 32.0 30.0 - 35.0 g/dL [facility] EOSINOPHIL ABSOLUTE 0.1 0.0 - 0.7 K/ul [facility] RBC 3.76(L) 4.20 - 5.40 Mil/ul [facility] MPV 10.3 8.9 - 12.8 Fl [facility] LYMPHOCYTE ABSOLUTE 0.9(L) 1.2 - 4.0 K/ul [facility] WBC 9.2 4.8 - 10.8 K/ul [facility] HEMATOCRIT 30.3(L) 36.0 - 46.0 % [facility] RDW 16.6(H) 11.0 - 14.5 % [facility] Blood specimen (specimen) 04/18/2008 6:17 AM MANAGER HOUSE 04/18/2008 6:47 AM MANAGER HOUSE us Augie Tello MD HEMATOLOGY ORDERABLES Final Re sult Performing Organization Address [facility] de Phone Number INTERFACE SYSTEM Refer to clinic/hospital department [facility] CLIA# [id number] [address] [place] [address] * (ABNORMAL) POC GLUCOSE (04/17/2008 9:00 PM MANAGER HOUSE) GLUCOSE POC 169(H) 60 - 100 mg/dL [facility] Venous blood specimen (specimen) 04/17/2008 9:00 PM MANAGER HOUSE 04/18/2008 2:42 AM MANAGER HOUSE us Augie Tello MD POINT OF CARE TESTING Final Re charant Performing Organization Address [facility] Phone Number INTERFACE SYSTEM Refer to clinic/hospital department [facility] CLIA# [id number] [address] [place] [address] * (ABNORMAL) POC GLUCOSE (04/17/2008 5:30 PM MANAGER HOUSE) GLUCOSE POC 162(H) 60 - 100 mg/dL [facility] Venous blood specimen (specimen) 04/17/2008 5:30 PM MANAGER HOUSE 04/18/2008 2:42 AM MANAGER HOUSE us Augie Tello MD POINT OF CARE TESTING Final Re charant Performing Organization Address [facility] de Phone Number INTERFACE SYSTEM Refer to clinic/hospital [facility] CLIA# [id number] [address] [place] [address] * (ABNORMAL) POC GLUCOSE (04/17/2008 2:59 PM MANAGER HOUSE) GLUCOSE POC 200(H) 60 - 100 mg/dL [facility] Venous blood specimen (specimen) 04/17/2008 2:59 PM MANAGER HOUSE 04/18/2008 7:08 AM MANAGER HOUSE us Augie Tello MD POINT OF CARE TESTING Final Re sult Performing Organization Address [facility] de Phone Number INTERFACE SYSTEM Refer to clinic/hospital department [facility] CLIA# [id number] [address] [place] [address] * (ABNORMAL) POC GLUCOSE (04/17/2008 10:13 AM MANAGER HOUSE) GLUCOSE POC 237(H) 60 - 100 mg/dL [facility] Venous blood specimen (specimen) 04/17/2008 10:13 AM MANAGER HOUSE 04/18/2008 6:54 AM MANAGER HOUSE us Augie Tello MD POINT OF CARE TESTING Final Re sult Performing Organization Address [facility] Phone Number INTERFACE SYSTEM Refer to clinic/hospital department [facility] CLIA# [id number] [address] [place] [address] * XR FLUORO > 1 HOUR (04/17/2008 10:05 AM MANAGER HOUSE) Anatomical Region Laterality Modality Other 04/17/2008 10:0 5 AM MANAGER HOUSE Narrative 11/03/2012 8:34 AM CDT This exam has been autofinalized. Procedure Note [facility] Rad, Radiologist, MD - 11/03/2012 This exam has been autofinalized. us Augie Tello MD DIAGNOSTIC IMAGING ORDERABLES Final Result * (ABNORMAL) CBC WITHOUT DIFFERENTIAL (04/17/2008 7:59 AM MANAGER HOUSE) HEMOGLOBIN 10.8(L) 12.0 - 16.0 g/dL [facility] WBC 8.5 4.8 - 10.8 K/ul [facility] HEMATOCRIT 33.3(L) 36.0 - 46.0 % [facility] PLATELETS 385 140 - 440 K/ul [facility] RBC 4.14(L) 4.20 - 5.40 Mil/ul [facility] Blood specimen (specimen) 04/17/2008 7:59 AM MANAGER HOUSE 04/17/2008 7:59 AM MANAGER HOUSE us Augie Tello MD HEMATOLOGY ORDERABLES Final Re sult Performing Organization Address [facility] de Phone Number INTERFACE SYSTEM Refer to clinic/hospital department [facility] CLIA# [id number] [facility] [place] [address] * (ABNORMAL) POC GLUCOSE (04/17/2008 5:54 AM MANAGER HOUSE) GLUCOSE POC 165(H) 60 - 100 mg/dL [facility] Venous blood specimen (specimen) 04/17/2008 5:54 AM MANAGER HOUSE 04/17/2008 6:04 AM MANAGER HOUSE us Augie Tello MD POINT OF CARE TESTING Final Re sult Performing Organization Address [facility] Phone Number INTERFACE SYSTEM Refer to clinic/hospital department [facility] CLIA# [id number] [address] [place] [address] documented in this encounter Visit Diagnoses Diagnosis Unspecified essential hypertension Type II or unspecified type diabetes mellitus without mention of complication, not stated as uncontrolled Encounter for long-term (current) use of insulin ([facility] Encounter for long-term (current) use of insulin Esophageal reflux Obesity, unspecified documented in this encounter Additional Health Concerns Infection Onset Date Last Indicated Resolved Time R/O COVID-19 05/03/2020 05/03/2020 05/03/2020 5:06 AM MANAGER HOUSE documented as of this encounter Care Teams Automatic Seamer Relationship Specialty Start Date End Date Daniel Mae MD [address] [facility] [address] [place] [address] PCP - General Family Practice 12/17/15 documented as of this encounter
--- OUTSIDE RECORDS SUMMARY | 2025-01-12 22:46 | XMS_ITS | Encounter Summary ---
Author Organization [facility] Address [address] [place] [address] Care Team Providers Care Rat Exterminator Name Role Phone Daniel Mae MD Primary Care Provider +1 [phone] Encounter Details Date Type Department Care Team (Late st Contact Info) Description 10/21/2007 Outpatient Historical [facility] Pain Management Procedures [address] [place] [address] José Warren Social History Tobacco Use Types Packs/Day Years Used Date Smoking Tobacco: Never Assessed Comments Unknown Sex and Gender Information Value Date Recorded Sex Assigned at Not on file Legal Sex Female 4:24 AM CITY DIRECTOR Gender Identity Not on file Sexual Orientation Not on file documented as of this encounter Plan of Treatment Not on file documented as of this encounter Procedures Procedure Name Priority Date/Time Associated Diagnosis Comments XR FLUORO GREATER THAN 1 HOUR Routine 10/26/2007 8:07 AM CDT documented in this encounter Results * XR FLUORO > 1 HOUR (10/26/2007 8:07 AM CDT) Anatomical Region Laterality Modality Other 10/26/2007 8:07 AM CDT Narrative 10/26/2007 8:07 AM CDT Finalized by interface cleanup utility. No report expected. Procedure Note 05/14/2008 Finalized by interface cleanup utility. No report expected. José Warren DIAGNOSTIC IMAGING ORDERABLES Fi nal Result documented in this encounter Visit Diagnoses Not on filedocumented in this encounter Additional Health Concerns Infection Onset Date Last Indicated Resolved Time R/O COVID-19 05/03/2020 05/03/2020 05/03/2020 5:06 AM CITY DIRECTOR documented as of this encounter Care Teams Rat Exterminator Relationship Specialty Start Date End Date Daniel Mae MD [address] [address] PCP - General Family Practice 12/17/15 documented as of this encounter
--- OUTSIDE RECORDS SUMMARY | 2025-01-12 22:46 | XMS_ITS | Encounter Summary ---
Author Organization [facility] Address [address] [place] [address] Care Team Providers Care Clinical Technician Name Role Phone Daniel Mae MD Primary Care Provider [phone] [phone] Encounter Details Date Type Department Care Team (Late st Contact Info) Description 09/08/2007 Outpatient Historical [facility] Pain [facility] [address] [place] [id number] José Warren Social History Tobacco Use Types Packs/Day Years Used Date Smoking Tobacco: Never Assessed Comments Unknown Sex and Gender Information Value Date Recorded Sex Assigned at Not on file Legal Sex Female 4:24 AM OFFBEARER Gender Identity Not on file Sexual Orientation Not on file documented as of this encounter Plan of Treatment Not on file documented as of this encounter Visit Diagnoses Not on filedocumented in this encounter Additional Health Concerns Infection Onset Date Last Indicated Resolved Time R/O COVID-19 05/03/2020 05/03/2020 05/03/2020 5:06 AM OFFBEARER documented as of this encounter Care Teams Clinical Technician Relationship Specialty Start Date End Date Daniel Mae MD [address] [facility] [address] [place] [id number] PCP - General Family Practice 12/17/15 documented as of this encounter
--- OUTSIDE RECORDS SUMMARY | 2025-01-12 22:46 | XMS_ITS | Encounter Summary ---
Author Organization [facility] Address [address] [place] [address] Care Team Providers Care Housemaid Name Role Phone Daniel Mae MD Primary Care Provider [phone] [phone] Encounter Details Date Type Department Care Team (Late st Contact Info) Description 05/03/2008 Outpatient Historical [facility] DEFAULT DEPARTMENT Augie Tello MD [address] [address] Social History Tobacco Use Types Packs/Day Years Used Date Smoking Tobacco: Never Assessed Comments No Sex and Gender Information Value Date Recorded Sex Assigned at Not on file Legal Sex Female 4:24 AM GRAIN SAMPLER Gender Identity Not on file Sexual Orientation Not on file documented as of this encounter Plan of Treatment Not on file documented as of this encounter Visit Diagnoses Not on filedocumented in this encounter Additional Health Concerns Infection Onset Date Last Indicated Resolved Time R/O COVID-19 05/03/2020 05/03/2020 05/03/2020 5:06 AM GRAIN SAMPLER documented as of this encounter Care Teams Housemaid Relationship Specialty Start Date End Date Daniel Mae MD [address] [facility] [address] [place] [address] PCP - General Family Practice 12/17/15 documented as of this encounter
--- OUTSIDE RECORDS SUMMARY | 2025-01-12 22:46 | XMS_ITS | Encounter Summary ---
Author Organization [facility] Address [address] [place] [address] Care Team Providers Care Buckle Frame Shaper Name Role Phone Daniel Mae MD Primary Care Provider +1 [phone] Encounter Details Date Type Department Care Team (Late st Contact Info) Description 09/01/2007 Outpatient Historical [facility] Pain [facility] [address] [place] [phone] José Warren Social History Tobacco Use Types Packs/Day Years Used Date Smoking Tobacco: Never Assessed Comments Unknown Sex and Gender Information Value Date Recorded Sex Assigned at Not on file Legal Sex Female 4:24 AM LOAN ASSOCIATE Gender Identity Not on file Sexual Orientation Not on file documented as of this encounter Plan of Treatment Not on file documented as of this encounter Visit Diagnoses Not on filedocumented in this encounter Additional Health Concerns Infection Onset Date Last Indicated Resolved Time R/O COVID-19 05/03/2020 05/03/2020 05/03/2020 5:06 AM LOAN ASSOCIATE documented as of this encounter Care Teams Buckle Frame Shaper Relationship Specialty Start Date End Date Daniel Mae MD [address] [facility] [address] [place] [phone] PCP - General Family Practice 12/17/15 documented as of this encounter
--- OUTSIDE RECORDS SUMMARY | 2025-01-12 22:46 | XMS_ITS | Encounter Summary ---
Author Organization [facility] Address [address] [place] [address] Care Team Providers Care Business Support Manager Name Role Phone Daniel Mae MD Primary Care Provider +1 [phone] Encounter Details Date Type Department Care Team (Latest Contact Info) Description 03/13/2008 Outpatient [facility] [address] [place] [address] [place] [facility] [address] [place] [address] José Warren Alan M, MD [address] [place] [facility] [address] [place] [address] Degeneration of Lumbar or Lumbosacral Intervertebral Disc; Displacement of Lumbar Intervertebral Disc without Myelopathy; Unspecified Essential Hypertension; Unspecified Constipation; DM w/o Complication Type II (CMS/HCC); Esophageal Reflux Social History Tobacco Use Types Packs/Day Years Used Date Smoking Tobacco: Never Assessed Comments No Sex and Gender Information Value Date Recorded Sex Assigned at Not on file Legal Sex Female 4:24 AM OR MANAGER Gender Identity Not on file Sexual Orientation Not on file documented as of this encounter Plan of Treatment Not on file documented as of this encounter Visit Diagnoses Diagnosis Degeneration of lumbar or lumbosacral intervertebral disc Displacement of lumbar intervertebral disc without myelopathy Unspecified essential hypertension Unspecified constipation Type II or unspecified type diabetes mellitus without mention of complication, not stated as uncontrolled Esophageal reflux documented in this encounter Additional Health Concerns Infection Onset Date Last Indicated Resolved Time R/O COVID-19 05/03/2020 05/03/2020 05/03/2020 5:06 AM OR MANAGER documented as of this encounter Care Teams Business Support Manager Relationship Specialty Start Date End Date Daniel Mae MD [address] [address] PCP - General Family Practice 12/17/15 documented as of this encounter
--- OUTSIDE RECORDS SUMMARY | 2025-01-12 22:46 | XMS_ITS | Encounter Summary ---
Author Organization [facility] Address [address] [place] [address] Care Team Providers Care Lifestyle Coordinator Name Role Phone Daniel Mae MD Primary Care Provider [phone] Encounter Details Date Type Department Care Team (Late st Contact Info) Description 12/20/2007 Outpatient Historical [facility] Pain Management Procedures [address] [place] [address] José Warren Social History Tobacco Use Types Packs/Day Years Used Date Smoking Tobacco: Never Assessed Comments No Sex and Gender Information Value Date Recorded Sex Assigned at Not on file Legal Sex Female 4:24 AM TYPEWRITER OPERATOR AUTOMATIC Gender Identity Not on file Sexual Orientation Not on file documented as of this encounter Plan of Treatment Not on file documented as of this encounter Procedures Procedure Name Priority Date/Time Associated Diagnosis Comments CT LUMBAR SPINE W CONTRAST Routine 12/28/2007 9:59 AM CDT XR DISKOGRAM LUMBAR SPINE Routine 12/28/2007 8:33 AM CDT documented in this encounter Results * CT LUMBAR SPINE W CONTRAST (12/28/2007 9:59 AM CDT) Anatomical Region Laterality Modality Spine Other 12/28/2007 9:59 AM CDT Narrative 12/28/2007 2:41 PM CDT Axial images were obtained through the lumbar spine. History is status post discogram. The sagittal reformations show contrast present within the discs from L2-L3 to L5-S1. Alignment is normal without significant subluxation. T12-L1: Vacuum disc phenomenon and tiny disc bulge. L1-L2: Vacuum disc phenomenon and left foraminal and extraforaminal disc- osteophyte complex. This does result in some left foraminal narrowing which could affect the exiting nerve root. L2-L3: Contrast is present within the disc as well as along the left-sided margins. Small vacuum disc phenomenon is noted. There is minimal narrowing of the thecal sac and an appearance that suggests a tiny left subarticular disc protrusion. L3-L4: Contrast is present within the disc as well as around its margins. There appears to be a small left foraminal disc protrusion which comes in close proximity to the exiting nerve root. There is mild hypertrophy of the ligamentum flavum and mild narrowing of the thecal sac. Mild left facet arthrosis. L4-L5: Contrast is present within the disc as well as along the right lateral margin. A vacuum disc phenomenon is present. There is a disc bulge and hypertrophy of the ligamentum flavum which appears to result in moderate spinal stenosis. There also appears to be right foraminal narrowing. L5-S1: No significant abnormality. Impression: There are multilevel degenerative changes as described above. MRI would be useful to better evaluate the probable spinal stenosis at the L4-L5 level. - Dictated By: Travis Newberry M.D. Electronically Signed By: Travis Newberry M.D. Date Signed: 12/28/07 JAW Procedure Note Travis Newberry W - 12/28/2007 Axial images were obtained through the lumbar spine. History is statuspost discogram. The sagittal reformations show contrast present within the discs fromL2-L3 to L5-S1. Alignment is normal without significant subluxation. T12-L1: Vacuum disc phenomenon and tiny disc bulge. L1-L2: Vacuum disc phenomenon and left foraminal and extraforaminaldisc- osteophyte complex. This does result in some left foraminal narrowing which could affect the exitingnerve root. L2-L3: Contrast is present within the disc as well as along the left- sidedmargins. Small vacuum disc phenomenon is noted. There is minimal narrowing of the thecal sac and anappearance that suggests a tiny left subarticular disc protrusion. L3-L4: Contrast is present within the disc as well as around its margins.There appears to be a small left foraminal disc protrusion which comes in close proximity to theexiting nerve root. There is mild hypertrophy of the ligamentum flavum and mild narrowing of the thecal sac.Mild left facet arthrosis. L4-L5: Contrast is present within the disc as well as along the rightlateral margin. A vacuum disc phenomenon is present. There is a disc bulge and hypertrophy of theligamentum flavum which appears to result in moderate spinal stenosis. There also appears to be rightforaminal narrowing. L5-S1: No significant abnormality. Impression: There are multilevel degenerative changes as described above. MRI would beuseful to better evaluate the probable spinal stenosis at the L4-L5 level. - Dictated By: Travis Newberry M.D. Electronically Signed By: Travis Newberry M.D. Date Signed: 12/28/[address] ORDERABLES Final Result * XR DISKOGRAM LUMBAR SPINE (12/28/2007 8:33 AM CDT) Anatomical Region Laterality Modality Spine Other 12/28/2007 8:33 AM CDT Narrative 12/28/2007 8:33 AM CDT Finalized by interface [employer] utility. No report expected. Procedure Note 06/05/2008 Finalized by interface [employer] utility. No report expected. José Warren DIAGNOSTIC IMAGING ORDERABLES Fi nal Result documented in this encounter Visit Diagnoses Not on filedocumented in this encounter Additional Health Concerns Infection Onset Date Last Indicated Resolved Time R/O COVID-19 05/03/2020 05/03/2020 05/03/2020 5:06 AM TYPEWRITER OPERATOR AUTOMATIC documented as of this encounter Care Teams Lifestyle Coordinator Relationship Specialty Start Date End Date Daniel Mae MD [address] [address] PCP - General Family Practice 12/17/15 documented as of this encounter
--- OUTSIDE RECORDS SUMMARY | 2025-01-12 22:46 | XMS_ITS | Encounter Summary ---
Author Organization [facility] Address [address] [place] [address] Care Team Providers Care Line Assembler Name Role Phone Daniel Mae MD Primary Care Provider [phone] Encounter Details Date Type Department Care Team (Late st Contact Info) Description 03/15/2008 Outpatient Historical [facility] DEFAULT [facility]PART[facility] Augie Tello MD [address] [address] Social History Tobacco Use Types Packs/Day Years Used Date Smoking Tobacco: Never Assessed Comments No Sex and Gender Information Value Date Recorded Sex Assigned at Not on file Legal Sex Female 4:24 AM CINDER PIT CRANE OPERATOR Gender Identity Not on file Sexual Orientation Not on file documented as of this encounter Plan of Treatment Not on file documented as of this encounter Visit Diagnoses Not on filedocumented in this encounter Additional Health Concerns Infection Onset Date Last Indicated Resolved Time R/O COVID-19 05/03/2020 05/03/2020 05/03/2020 5:06 AM CINDER PIT CRANE OPERATOR documented as of this encounter Care Teams Line Assembler Relationship Specialty Start Date End Date Daniel Mae MD [address] [facility] [address] [place] [address] PCP - General Family Practice 12/17/15 documented as of this encounter
--- OUTSIDE RECORDS SUMMARY | 2025-01-12 22:46 | XMS_ITS | Encounter Summary ---
Author Organization [facility] Address [address] [place] [address] Care Team Providers Care Harness Mender Name Role Phone Daniel Mae MD Primary Care Provider [phone] Encounter Details Date Type Department Care Team (Latest Contact Info) Description 11/29/2007 Outpatient [facility] [address] [place] [address] [address] José Warren Degeneration of Lumbar or Lumbosacral Intervertebral Disc; Unspecified Essential Hypertension; Unspecified Constipation; DM w/o Complication Type II (CMS/HCC); Esophageal Reflux; Personal History of Allergy to Sulfonamides; Personal History of Allergy to Analgesic Agent Social History Tobacco Use Types Packs/Day Years Used Date Smoking Tobacco: Never Assessed Comments No Sex and Gender Information Value Date Recorded Sex Assigned at Not on file Legal Sex Female 4:24 AM HEAD OF ETHICS AND COMPLIANCE Gender Identity Not on file Sexual Orientation Not on file documented as of this encounter Plan of Treatment Not on file documented as of this encounter Visit Diagnoses Diagnosis Degeneration of lumbar or lumbosacral intervertebral disc Unspecified essential hypertension Unspecified constipation Type II or unspecified type diabetes mellitus without mention of complication, not stated as uncontrolled Esophageal reflux Personal history of allergy to sulfonamides Personal history of allergy to analgesic agent documented in this encounter Additional Health Concerns Infection Onset Date Last Indicated Resolved Time R/O COVID-19 05/03/2020 05/03/2020 05/03/2020 5:06 AM HEAD OF ETHICS AND COMPLIANCE documented as of this encounter Care Teams Harness Mender Relationship Specialty Start Date End Date Daniel Mae MD [address] [address] PCP - General Family Practice 12/17/15 documented as of this encounter
--- OUTSIDE RECORDS SUMMARY | 2025-01-12 22:46 | XMS_ITS | Encounter Summary ---
Author Organization [facility] Address [address] [place] [address] Care Team Providers Care Mining Consultant Name Role Phone Daniel Mae MD Primary Care Provider [phone] [phone] Encounter Details Date Type Department Care Team (Latest Contact Info) Description 10/08/2007 Outpatient [facility] [address] [place] [address] [place] [address] José Warren Thoracic or Lumbosacral Neuritis or Radiculitis, Unspecified; Disorders of Sacrum; DM w/o Complication Type II (CMS/HCC); Unspecified Essential Hypertension Social History Tobacco Use Types Packs/Day Years Used Date Smoking Tobacco: Never Assessed Comments Unknown Sex and Gender Information Value Date Recorded Sex Assigned at Not on file Legal Sex Female 4:24 AM ANALYZER SALES Gender Identity Not on file Sexual Orientation Not on file documented as of this encounter Plan of Treatment Not on file documented as of this encounter Visit Diagnoses Diagnosis Thoracic or lumbosacral neuritis or radiculitis, unspecified Disorders of sacrum Type II or unspecified type diabetes mellitus without mention of complication, not stated as uncontrolled Unspecified essential hypertension documented in this encounter Additional Health Concerns Infection Onset Date Last Indicated Resolved Time R/O COVID-19 05/03/2020 05/03/2020 05/03/2020 5:06 AM ANALYZER SALES documented as of this encounter Care Teams Mining Consultant Relationship Specialty Start Date End Date Daniel Mae MD [address] [address] PCP - General Family Practice 12/17/15 documented as of this encounter
--- OUTSIDE RECORDS SUMMARY | 2025-01-12 22:47 | XMS_ITS | Encounter Summary ---
Author Organization [facility] Address [address] [place] [address] Care Team Providers Care Patient Support Associate Name Role Phone Daniel Mae MD Primary Care Provider [phone] Encounter Details Date Type Department Care Team (Late st Contact Info) Description 08/25/2007 Outpatient Historical [facility] [address] [place] [phone] José Warren Social History Tobacco Use Types Packs/Day Years Used Date Smoking Tobacco: Never Assessed Comments Unknown Sex and Gender Information Value Date Recorded Sex Assigned at Not on file Legal Sex Female 4:24 AM PATENT PROSECUTION PARALEGAL Gender Identity Not on file Sexual Orientation Not on file documented as of this encounter Plan of Treatment Not on file documented as of this encounter Visit Diagnoses Not on filedocumented in this encounter Additional Health Concerns Infection Onset Date Last Indicated Resolved Time R/O COVID-19 05/03/2020 05/03/2020 05/03/2020 5:06 AM PATENT PROSECUTION PARALEGAL documented as of this encounter Care Teams Patient Support Associate Relationship Specialty Start Date End Date Daniel Mae MD [address] [facility] [address] [place] [address] PCP - General Family Practice 12/17/15 documented as of this encounter
--- OUTSIDE RECORDS SUMMARY | 2025-01-12 22:47 | XMS_ITS | Encounter Summary ---
Author Organization [facility] Address [address] [place] [address] Care Team Providers Care Commercial Driver Name Role Phone Daniel Mae MD Primary Care Provider [phone] Encounter Details Date Type Department Care Team (Latest Contact Info) Description 08/30/2007 Outpatient Historical [facility] Pain Management Procedures [address] [place] [address] José Warren Esophageal Reflux; DM w/o Complication Type II (CMS/HCC); Headache; Unspecified Constipation Social History Tobacco Use Types Packs/Day Years Used Date Smoking Tobacco: Never Assessed Comments Unknown Sex and Gender Information Value Date Recorded Sex Assigned at Not on file Legal Sex Female 4:24 AM SORTER UPHOLSTERY PARTS Gender Identity Not on file Sexual Orientation Not on file documented as of this encounter Plan of Treatment Not on file documented as of this encounter Procedures Procedure Name Priority Date/Time Associated Diagnosis Comments XR FLUORO GREATER THAN 1 HOUR Routine 09/01/2007 4:49 PM CDT documented in this encounter Results * XR FLUORO > 1 HOUR (09/01/2007 4:49 PM CDT) Anatomical Region Laterality Modality Other 09/01/2007 4:49 PM CDT Narrative 09/01/2007 4:49 PM CDT Finalized by [employer] utility. No report expected. Procedure Note 05/14/2008 Finalized by interface [employer] utility. No report expected. José Warren DIAGNOSTIC IMAGING ORDERABLES Fi nal Result documented in this encounter Visit Diagnoses Diagnosis Esophageal reflux Type II or unspecified type diabetes mellitus without mention of complication, not stated as uncontrolled Headache(784.0) Headache Unspecified constipation documented in this encounter Additional Health Concerns Infection Onset Date Last Indicated Resolved Time R/O COVID-19 05/03/2020 05/03/2020 05/03/2020 5:06 AM SORTER UPHOLSTERY PARTS documented as of this encounter Care Teams Commercial Driver Relationship Specialty Start Date End Date Daniel aMe MD [address] [phone] PCP - General Family Practice 12/17/15 documented as of this encounter
--- OUTSIDE RECORDS SUMMARY | 2025-01-12 22:48 | XMS_ITS | Encounter Summary ---
Author Organization [facility] Address [address] [place] [address] Care Team Providers Care Coal Cutting Machine Operator Name Role Phone Daniel Mae MD Primary Care Provider [phone] [phone] Encounter Details Date Type Department Care Team (Late st Contact Info) Description 05/09/2014 Ancillary Orders [facility] [place] [address] [place] [address] Social History Tobacco Use Types Packs/Day Years Used Date Smoking Tobacco: Never Smokeless Tobacco: Never Alcohol Use Standard Drinks/Week Comments Yes 1.7 (1 standard drink = 0.6 oz p ure alcohol) yearly Comments No Sex and Gender Information Value Date Recorded Sex Assigned at Not on file Legal Sex Female 4:24 AM ANTHROPOLOGY PROFESSOR Gender Identity Not on file Sexual Orientation [...] Procedure Name Priority Date/Time Associated Diagnosis Comments HEMOGLOBIN A1C Routine 05/09/2014 9:08 AM ANTHROPOLOGY PROFESSOR CHOLESTEROL TOTAL Routine 05/09/2014 9:0 8 AM ANTHROPOLOGY PROFESSOR documented in this encounter Results * CHOLESTEROL TOTAL (05/09/2014 9:08 AM ANTHROPOLOGY PROFESSOR) CHOLESTEROL 137 130 - 200 mg/dL 05/09/2014 9:33 AM [facility] [employer] [facility] Blood Venipuncture - L ab Collect / Unknown 05/09/2014 9:08 AM ANTHROPOLOGY PROFESSOR 05/09/2014 9:09 AM ANTHROPOLOGY PROFESSOR Narrative [facility] - 05/09/2014 9:33 AM ANTHROPOLOGY PROFESSOR TOTAL CHOLESTEROL mg/dL Desirable < 200 Borderline High 200 - 239 High >= 240 Based on AHA/NCEP Guidelines. External Provider [employer] CHEMISTRY ORDERABLES Saskia l Result Performing Organization Address City/[facility]/ZIP Co de Phone Number [facility] [employer] CLIA # [id number] [address] [place] [address] * (ABNORMAL) HEMOGLOBIN A1C (05/09/2014 9:08 AM ANTHROPOLOGY PROFESSOR) HEMOGLOBIN A1C 7.0(H) 4.5 - 6.2 % 05/09/2014 10:20 AM [facility] [employer] [facility] EST. AVG GLUCOSE, A1C 154 mg/dL 05/09/2014 10:20 AM [facility] Blood Venipuncture - L ab Collect / Unknown 05/09/2014 9:08 AM ANTHROPOLOGY PROFESSOR 05/09/2014 9:09 AM ANTHROPOLOGY PROFESSOR External Provider Mtn CHEMISTRY ORDERABLES Saskia l Result Performing Organization Address City/[facility]/ZIP Co de Phone Number [facility] CLIA # [id number] [address] [place] [address] documented in this encounter Visit Diagnoses Not on filedocumented in this encounter Additional Health Concerns Infection Onset Date Last Indicated Resolved Time R/O COVID-19 05/03/2020 05/03/2020 05/03/2020 5:06 AM ANTHROPOLOGY PROFESSOR Assessment Noted Time PHQ-9 Depression Total Score: 2 02/29/20 14 10:00 AM CDT documented as of this encounter Care Teams Coal Cutting Machine Operator Relationship Specialty Start Date End Date Daniel Mae MD [address] [phone] PCP - General Family Practice 12/17/15 documented as of this encounter
--- OUTSIDE RECORDS SUMMARY | 2025-01-12 22:48 | XMS_ITS | Encounter Summary ---
Author Organization [facility] Address [address] [address] Phone Care Team Providers Care Manager Sharepoint Name Role Phone Daniel Mae MD Primary Care Provider [phone] Reason for Visit * Reason Comments Med Refill Encounter Details Date Type Department Care Team (Late Contact Info) Description 07/05/2022 Refill [facility] [address] [address] Bernarda Talamantes NP [address] [address] Secondary hyperparathyroidism of renal origin (HCC) Social History Tobacco Use Types Packs/Day [...] Description 02/20/2025 2:30 PM CDT Office Visit [facility] [address] [place] [address] Bernarda Talamantes NP [address] [facility] [address] [place] [address] documented as of this encounter Visit Diagnoses Diagnosis Secondary hyperparathyroidism of renal origin (HCC) Secondary hyperparathyroidism of renal origin documented in this encounter Care Teams Manager Sharepoint Relationship Specialty Start Date End Date Daniel Mae MD [address] [address] PCP - General Family Medicine 09/22/18 documented as of this encounter
--- OUTSIDE RECORDS SUMMARY | 2025-01-12 22:48 | XMS_ITS | Encounter Summary ---
Author Organization [facility] Address [address] [facility] [address] [place] [address] Phone Care Team Providers Care Space Control Agent Name Role Phone Daniel Mae MD Primary Care Provider [phone] Reason for Visit * Reason Comments Med Refill Encounter Details Date Type Department Care Team (Late st Contact Info) Description 03/23/2024 Refill [facility] [address] [place] [phone] Bernarda Talamantes, HUMAN RESOURCES COORDINATOR [address] [facility] [address] [place] [address] Persistent proteinuria Social History Tobacco Use Types Packs/Day Years [...] on file documented as of this encounter Miscellaneous Notes * Telephone Encounter - Niurka Andre - 03/23/2024 8:26 AM CST Receipt confirmed by pharmacy 03/14/24 at 8:49am documented in this encounter Plan of Treatment Upcoming Encounters Date Type Department Care Team (Late Contact Info) Description 02/20/2025 2:30 PM CDT Office Visit [facility] [address] [place] [phone] Bernarda Talamantes NP [address] [facility] [address] [place] [address] documented as of this encounter Visit Diagnoses Diagnosis Persistent proteinuria documented in this encounter Care Teams Space Control Agent Relationship Specialty Start Date End Date Daniel Mae MD [address] [phone] PCP - General Family Medicine 09/22/18 documented as of this encounter
--- OUTSIDE RECORDS SUMMARY | 2025-01-12 22:48 | XMS_ITS | Encounter Summary ---
Author Organization [facility] Address [address] [place] [address] Care Team Providers Care Heel Nailing Machine Operator Name Role Phone Daniel Mae MD Primary Care Provider [phone] [phone] Reason for Referral * Outpatient Services (Routine) - Closed Specialty Diagnoses / Procedures Referred By Contdalila t Referred To Contact Radiology Diagnoses Chronic kidney disease, stage II (mild) Diabetic nephropathy (CMS/HCC) Diabetes mellitus without complication ([facility]/HCC) Procedures RENAL Jenniffer Burnham DO [address] [facility] [address] [place] [address] Phone: tel: fax: [facility] [place] [address] [facility] [address] [place] [address] Phone: tel: fax: Referral ID Status Reason Start Date Expiration Date V isits Requested Visits Authorized [id number] Closed [facility] View CTS to Schedule (SGF) 03/18/2016 04/18/2017 1 1 OGRAPHER STILL Encounter Details Date Type Department Care Team (Late st Contact Info) Description 03/18/2016 Ancillary Orders [facility] Centralized Scheduling [address] [place] [address] Jenniffer Burnham DO [address] [facility] [address] [place] [address] Chronic kidney disease, stage II (mild) (Primary Dx); Diabetic nephropathy (CMS/HCC); Diabetes mellitus without complication (CMS/HCC) Social History Tobacco Use Types Packs/Day Years Used Date Smoking Tobacco: Never Smokeless Tobacco: Never Alcohol Use Standard Drinks/Week Comments Yes 1.7 (1 standard drink = 0.6 oz p ure alcohol) yearly Comments No Sex and Gender Information Value Date Recorded Sex Assigned at Not on file Legal Sex Female 4:24 AM PHOTOGRAPHER STILL Gender Identity Not on file Sexual Orientation Not on file Occupation Industry Job Start Date Job End Date Not on file Not on file Not on file Not on file Not on file Not on file Not on file Not on file documented as of this encounter Plan of Treatment Not on file documented as of this encounter Results * US RENAL (03/25/2016 10:04 AM PHOTOGRAPHER STILL) Anatomical Region Laterality Modality Abdomen Ultrasound 03/25/2016 10:0 4 AM PHOTOGRAPHER STILL Impressions 03/25/2016 11:41 AM PHOTOGRAPHER STILL IMPRESSION: Please see below. Exam: US RENAL Date/Time of Exam: 03/25/2016 10:04 AM Reason For Exam: Chronic kidney disease, stage II (mild),Diabetic nephropathy, Diabetes mellitus without complication. Findings: Right kidney is 11.6 cm in length and the left kidney is 12.2 cm. No stones or hydronephrosis is identified. There is no perinephric fluid. The kidneys are mildly echogenic compatible with medical renal disease. Resistive indices of the kidneys are within normal limits. The right resistive index is nearing the upper limits of normal at 0.73. The left is 0.66. Incidental note is made of a cyst in the midpole left kidney measuring 3.2 x 2.7 cm in size. There is no perinephric fluid. The flow velocities are within normal limits. IMPRESSION: 1. Echogenic kidneys compatible with medical renal disease. Resistive indices are within normal limits although the resistive index on the right is nearing the upper limits of normal. 2. Left renal cyst. [id number] Narrative Procedure Note Sue Dasilva MD - 03/25/2016 IMPRESSION IMPRESSION: Please see below. Exam: US RENAL Date/Time of Exam: 03/25/2016 10:04 AM Reason For Exam: Chronic kidney disease, stage II (mild),Diabetic nephropathy, Diabetes mellitus without complication. Findings: Right kidney is 11.6 cm in length and the left kidney is 12.2 cm. No stones or hydronephrosis is identified. There is no perinephric fluid. The kidneys are mildly echogenic compatible with medical renal disease. Resistive indices of the kidneys are within normal limits. The right resistive index is nearing the upper limits of normal at 0.73. The left is 0.66. Incidental note is made of a cyst in the midpole left kidney measuring 3.2 x 2.7 cm in size. There is no perinephric fluid. The flow velocities are within normal limits. IMPRESSION: 1. Echogenic kidneys compatible with medical renal disease. Resistive indices are within normal limits although the resistive index on the right is nearing the upper limits of normal. 2. Left renal cyst. [id number] Jenniffer Burnham DO US ORDERABLES Final Result documented in this encounter Visit Diagnoses Diagnosis Chronic kidney disease, stage II (mild)- Primary Chronic kidney disease, Stage II (mild) Diabetic nephropathy (CMS/HCC) Type II or unspecified type diabetes mellitus with renal manifestations, not stated as uncontrolled Diabetes mellitus without complication (CMS/HCC) Type II or unspecified type diabetes mellitus without mention of complication, not stated as uncontrolled Chronic kidney disease, stage II (mild) Chronic kidney disease, Stage II (mild) Diabetic nephropathy (CMS/HCC) Type II or unspecified type diabetes mellitus with renal manifestations, not stated as uncontrolled Diabetes mellitus without complication (CMS/HCC) Type II or unspecified type diabetes mellitus without mention of complication, not stated as uncontrolled documented in this encounter Additional Health Concerns Infection Onset Date Last Indicated Resolved Time R/O COVID-19 05/03/2020 05/03/2020 05/03/2020 5:06 AM PHOTOGRAPHER STILL Assessment Noted Time PHQ-9 Depression Total Score: 2 02/29/20 14 10:00 AM CDT documented as of this encounter Care Teams Heel Nailing Machine Operator Relationship Specialty Start Date End Date Daniel Mae MD [address] [phone] PCP - General Family Practice 12/17/15 documented as of this encounter
--- OUTSIDE RECORDS SUMMARY | 2025-01-12 22:49 | XMS_ITS | Encounter Summary ---
Author Organization [facility] Address [address] [place] [address] Care Team Providers Care Route Relief Driver Name Role Phone Daniel Mae MD Primary Care Provider [phone] Encounter Details Date Type Department Care Team (Latest Contact Info) Description 08/02/2002 Outpatient Historical [facility] [address] [address] Dylon Miguel PA NO ADDRESS ON FILE PAIN IN LIMB (Primary Dx) Social History Tobacco Use Types Packs/Day Years Used Date Smoking Tobacco: Never Assessed Comments Unknown Sex and Gender Information Value Date Recorded Sex Assigned at Not on file Legal Sex Female 4:24 AM DIRECTOR INTEGRATED Gender Identity Not on file Sexual Orientation Not on file documented as of this encounter Plan of Treatment Not on file documented as of this encounter Visit Diagnoses Diagnosis Pain in limb- Primary documented in this encounter Additional Health Concerns Infection Onset Date Last Indicated Resolved Time R/O COVID-19 05/03/2020 05/03/2020 05/03/2020 5:06 AM DIRECTOR INTEGRATED documented as of this encounter Care Teams Route Relief Driver Relationship Specialty Start Date End Date Daniel Mae MD [address] [place] [phone] PCP - General Family Practice 8/15/16 documented as of this encounter
--- OUTSIDE RECORDS SUMMARY | 2025-01-12 22:49 | XMS_ITS | Encounter Summary ---
Author Organization [facility] Address [address] [place] [address] Care Team Providers Care Ad Compositor Name Role Phone Daniel Mae MD Primary Care Provider [phone] Encounter Details Date Type Department Care Team (Late st Contact Info) Description 07/06/2007 Outpatient Historical [facility] Medicine [place] [address] [address] Loly Cano FNP [address] [place] [phone] Social History Tobacco Use Types Packs/Day Years Used Date Smoking Tobacco: Never Assessed Comments Unknown Sex and Gender Information Value Date Recorded Sex Assigned at Not on file Legal Sex Female 4:24 AM CLIENT DEVELOPMENT DIRECTOR Gender Identity Not on file Sexual Orientation Not on file documented as of this encounter Progress Notes * Loly Cano FNP - 07/06/2007 12:00 AM CST Patient Name: Katy Noble DOS: 07/06/2007 : 1945 VITALS: Weight: 0.0 pounds. Deferred. Pulse: 0. Not dictated. BP: 116/92. Temperature of 99.1. CHIEF COMPLAINT: Needs new prescriptions. Thinks she also may have cellulitis in the left leg as she has had some itching and burning and she has been scratching to the left lower leg. She is having some trouble sleeping and is requesting a refill on her Xanax on her Darvocet. She is also having some back pain and is requesting she is ready now to be referred to the pain clinic. OBJECTIVE: GENERAL: A 61-year-old white male female; alert and oriented x3. No acute distress. SHEENT: Skin warm, dry, color pink. HEENT within normal limits. NECK: Supple. LUNGS: Clear. HEART: S1-S2 clear. Regular rate and rhythm. No murmur noted. ABDOMEN: Soft and round. Bowel sounds present x4 quadrants. No tenderness and no organomegaly is noted. BACK: A note is made of positive tenderness over the lumbar spine area. EXTREMITIES: A note is made of the left lower leg. There is some erythema noted to the area, slightedema with scratch lazaro present. ASSESSMENT: 1. Back pain. 2. Cellulitis the left leg. 3. Jus-wcmgduq-pegghypjb diabetes mellitus PLAN: The patient was provided teaching on the cellulitis. Keep the area clean and dry. Placed on Keflex 500 one q.i.d. p.o. for 10 days. She has refills on her medications of Zestoretic 20/25 one b.i.d. #60 with six refills, Glucophage 1000 one b.i.d. #60 with 6 refills, glipizide 5 mg one b.i.d. #60 with 6 refills, Tegretol 20 mg #60 with 6 refills, Lasix 20 mg p.r.n. #30 with a refill, potassium 10 mEq p.r.n. #30 with a refill, Zantac 150 [address] b.i.d[address] #[address] Avilez was contacted regarding her refills on her Xanax and her Darvocet. He provided her with a written prescriptionfor these. The patient will be referred to the pain clinic. She will return to our care after seeing the pain clinic. HOWARD Leggett D.O. [place] [facility] Electronically Signed by HOWARD Leggett 07/09/2007 15:49 , P, mazin Document #: [id number] cc: NT DEVELOPMENT DIRECTOR documented in this encounter Plan of Treatment Not on file documented as of this encounter Visit Diagnoses Not on filedocumented in this encounter Additional Health Concerns Infection Onset Date Last Indicated Resolved Time R/O COVID-19 05/03/2020 05/03/2020 05/03/2020 5:06 AM CLIENT DEVELOPMENT DIRECTOR documented as of this encounter Care Teams Ad Compositor Relationship Specialty Start Date End Date Daniel Mae MD [address] [facility] [address] [place] [phone] PCP - General Family Practice 12/17/15 documented as of this encounter
--- OUTSIDE RECORDS SUMMARY | 2025-01-12 22:49 | XMS_ITS | Encounter Summary ---
Author Organization [facility] Address [address] [place] [address] Care Team Providers Care Engineer Systems Name Role Phone Daniel Mae MD Primary Care Provider [phone] Encounter Details Date Type Department Care Team (Latest Contact Info) Description 04/10/2006 Outpatient [facility] Medicine [address] [address] Ar Beck MD NO ADDRESS ON FILE DM w/o Complication Type II, Uncontrolled (Primary Dx); Flatulence, Eructation, and Gas Pain Social History Tobacco Use Types Packs/Day Years Used Date Smoking Tobacco: Never Assessed Comments Unknown Sex and Gender Information Value Date Recorded Sex Assigned at Not on file Legal Sex Female 4:24 AM CLAIMS ACCOUNT MANAGER Gender Identity Not on file Sexual Orientation Not on file documented as of this encounter Plan of Treatment Not on file documented as of this encounter Visit Diagnoses Diagnosis Type II or unspecified type diabetes mellitus without mention of complication, uncontrolled- Primary Flatulence, eructation, and gas pain documented in this encounter Additional Health Concerns Infection Onset Date Last Indicated Resolved Time R/O COVID-19 05/03/2020 05/03/2020 05/03/2020 5:06 AM CLAIMS ACCOUNT MANAGER documented as of this encounter Care Teams Engineer Systems Relationship Specialty Start Date End Date Daniel Mae MD [address] [phone] PCP - General Family Practice 12/17/15 documented as of this encounter
--- OUTSIDE RECORDS SUMMARY | 2025-01-12 22:49 | XMS_ITS | Encounter Summary ---
Author Organization [facility] Address [address] [place] [address] Care Team Providers Care Manager Client Support Name Role Phone Daniel Mae MD Primary Care Provider [phone] [phone] Encounter Details Date Type Department Care Team (Latest Contact Info) Description 11/17/2005 Outpatient Historical [facility] [address] [place] [address] Itz Peña, [facility] [address] [address] Spinal Stenosis of Lumbar Region (Primary Dx); Degeneration of Lumbar or Lumbosacral Intervertebral Disc; Unspecified Backache Social History Tobacco Use Types Packs/Day Years Used Date Smoking Tobacco: Never Assessed Comments Unknown Sex and Gender Information Value Date Recorded Sex Assigned at Not on file Legal Sex Female 4:24 AM COLOR CONTROL SUPERVISOR Gender Identity Not on file Sexual Orientation Not on file documented as of this encounter Plan of Treatment Not on file documented as of this encounter Visit Diagnoses Diagnosis Spinal stenosis, lumbar region, without neurogenic claudication- Primary Degeneration of lumbar or lumbosacral intervertebral disc Backache, unspecified documented in this encounter Additional Health Concerns Infection Onset Date Last Indicated Resolved Time R/O COVID-19 05/03/2020 05/03/2020 05/03/2020 5:06 AM COLOR CONTROL SUPERVISOR documented as of this encounter Care Teams Manager Client Support Relationship Specialty Start Date End Date Daniel Mae MD [address] [address] PCP - General Family Practice 12/17/15 documented as of this encounter
--- OUTSIDE RECORDS SUMMARY | 2025-01-12 22:49 | XMS_ITS | Encounter Summary ---
Author Organization [facility] Address [address] [place] [address] Care Team Providers Care Car Designer Name Role Phone Daniel Mae MD Primary Care Provider [phone] Encounter Details Date Type Department Care Team (Latest Contact Info) Description 07/26/2002 Outpatient Historical [facility] Medicine- [address] [place] [address] Syd Avilez DO NO ADDRESS ON FILE PSYCHOSEXUAL DYSFUNC NOS (Primary Dx); ACUTE STRESS REACT NOS; CHEST PAIN NOS; Skin sensation disturb Social History Tobacco Use Types Packs/Day Years Used Date Smoking Tobacco: Never Assessed Comments Unknown Sex and Gender Information Value Date Recorded Sex Assigned at Not on file Legal Sex Female 4:24 AM FILM WAXER Gender Identity Not on file Sexual Orientation Not on file documented as of this encounter Plan of Treatment Not on file documented as of this encounter Visit Diagnoses Diagnosis Psychosexual dysfunction, unspecified- Primary Unspecified acute reaction to stress Chest pain, unspecified Skin sensation disturb Disturbance of skin sensation documented in this encounter Additional Health Concerns Infection Onset Date Last Indicated Resolved Time R/O COVID-19 05/03/2020 05/03/2020 05/03/2020 5:06 AM FILM WAXER documented as of this encounter Care Teams Car Designer Relationship Specialty Start Date End Date Daniel Mae MD [address] [phone] PCP - General Family Practice 12/17/15 documented as of this encounter
--- OUTSIDE RECORDS SUMMARY | 2025-01-12 22:49 | XMS_ITS | Encounter Summary ---
Author Organization [facility] Address [address] [place] [address] Care Team Providers Care Supervisor Sheet Manufacturing Name Role Phone Daniel Mae MD Primary Care Provider [phone] [phone] Encounter Details Date Type Department Care Team (Latest Contact Info) Description 08/25/2007 Outpatient Historical [facility] Pain Management Procedures [address] [place] [address] José Warren Esophageal Reflux; DM w/o Complication Type II (CMS/HCC); Headache; Unspecified Essential Hypertension; Unspecified Constipation; Personal History of Allergy to Analgesic Agent; Personal History of Allergy to Other Specified Medicinal Agents Social History Tobacco Use Types Packs/Day Years Used Date Smoking Tobacco: Never Assessed Comments Unknown Sex and Gender Information Value Date Recorded Sex Assigned at Not on file Legal Sex Female 4:24 AM CUFFER Gender Identity Not on file Sexual Orientation Not on file documented as of this encounter Plan of Treatment Not on file documented as of this encounter Procedures Procedure Name Priority Date/Time Associated Diagnosis Comments XR FLUORO GREATER THAN 1 HOUR Routine 08/27/2007 8:10 AM CDT documented in this encounter Results * XR FLUORO > 1 HOUR (08/27/2007 8:10 AM CDT) Anatomical Region Laterality Modality Other 08/27/2007 8:10 AM CDT Narrative 08/27/2007 8:10 AM CDT Finalized by interface cleanup utility. No report expected. Procedure Note 05/14/2008 Finalized by interface EnStorageup utility. No report expected. José Noe Warren DIAGNOSTIC IMAGING ORDERABLES Fi nal Result documented in this encounter Visit Diagnoses Diagnosis Esophageal reflux Type II or unspecified type diabetes mellitus without mention of complication, not stated as uncontrolled Headache(784.0) Headache Unspecified essential hypertension Unspecified constipation Personal history of allergy to analgesic agent Personal history of allergy to other specified medicinal agents documented in this encounter Additional Health Concerns Infection Onset Date Last Indicated Resolved Time R/O COVID-19 05/03/2020 05/03/2020 05/03/2020 5:06 AM CUFFER documented as of this encounter Care Teams Supervisor Sheet Manufacturing Relationship Specialty Start Date End Date Daniel Mae MD [address] [facility] [address] [place] [address] PCP - General Family Practice 12/17/15 documented as of this encounter
--- OUTSIDE RECORDS SUMMARY | 2025-01-12 22:49 | XMS_ITS | Encounter Summary ---
Author Organization [facility] Address [address] [place] [address] Care Team Providers Care Estimating Manager Name Role Phone Daniel Mae MD Primary Care Provider [phone] [phone] Encounter Details Date Type Department Care Team (Late st Contact Info) Description 06/11/2007 Outpatient Historical [facility] Endocrinology-[facility] [place] [address] [address] Farrukh Napier MD NO ADDRESS ON FILE Social History Tobacco Use Types Packs/Day Years Used Date Smoking Tobacco: Never Assessed Comments Unknown Sex and Gender Information Value Date Recorded Sex Assigned at Not on file Legal Sex Female 4:24 AM CHIEF ENGINEER'S HELPER Gender Identity Not on file Sexual Orientation Not on file documented as of this encounter Progress Notes * Farrukh Napier MD - 06/11/2007 12:00 AM CST Patient Name: Katy Noble DOS: 06/11/2007 : 1945 ALLERGIES: Sulfa Morphine Codeine Tramadol CURRENT MEDICATIONS: Medication list is fairly extensive and includes: Glucophage, Glipizide, Lantus. She also is on carbamazepine, potassium chloride, Reglan, Zantac. She also is taking b.i.d. NovoLog Mix 70/30, 70 units in the morning and 60 units in the evening. PROBLEM LIST Type 2 diabetes mellitus Hypertension SUBJECTIVE: The patient returns for followup of type 2 diabetes. Blood sugars are much better control. Hemoglobin A1c at this time is 7.0 percent on her current medications. PHYSICAL EXAM: VITAL SIGNS: Weight is 242 pounds. Blood pressure is 118/68, heart rate is 80. HEENT: Unremarkable. NECK: Supple without thyromegaly. CHEST AND LUNGS: Clear to auscultation. HEART: Regular rate and rhythm. ABDOMEN: Benign. EXTREMITIES: No edema. NEUROLOGICAL: Nonfocal. IMPRESSION: Type 2 diabetes mellitus, much better control. Will plan to continue to see the patienton a regular basis. Will plan to have her followup in approximately six months time. Farrukh Napier M.D., Ph.D. Endocrinology Electronically Signed by Farrukh Napier M.D. 06/18/2007 08:14 , P, 555 Document #: [id number] cc: HOWARD Leggett F ENGINEER'S HELPER documented in this encounter Plan of Treatment Scheduled Orders Name Type Priority Associated Diagnoses Orde r Schedule URINALYSIS WITH MICROSCOPIC Lab Routine Ordered: 06/11/2007 documented as of this encounter Procedures Procedure Name Priority Date/Time Associated Diagnosis Comments URINE CULTURE Routine 06/11/2007 2:52 PM CHIEF ENGINEER'S HELPER documented in this encounter Results * URINE CULTURE (06/11/2007 2:52 PM CHIEF ENGINEER'S HELPER) URINE CULTURE ORDER SPECIMEN DESCRIPTION: URINE SPECIAL REQUESTS: NONE CULTURE: 30,000 COL/ML ESCHERICHIA COLI REPORT STATUS: FINAL [id number] [facility]JARRED MANCIA SUSCEPTIBILITY PERFORMED ON ESCHERICHIA COLI [facility] MANCIA 06/11/2007 2:52 PM CHIEF ENGINEER'S HELPER 06/11/2007 4:20 PM CHIEF ENGINEER'S HELPER Narrative Organism Antibiotic Method Susceptibility Escherichia coli AMPICILLIN BREAKPOINT URINE <=8: Susceptible Escherichia coli CEFTAZIDIME BREAKPOINT URINE <=8: Susceptible Escherichia coli CEFOTAXIME BREAKPOINT URINE <=8: Susceptible Escherichia coli CEFAZOLIN BREAKPOINT URINE <=8: Susceptible Escherichia coli CIPROFLOXACIN BREAKPOINT URINE <=1: Susceptible Escherichia coli CEFEPIME BREAKPOINT URINE <=8: Susceptible Escherichia coli NITROFURANTOIN BREAKPOINT URINE <=32: Susceptible Escherichia coli GENTAMICIN BREAKPOINT URINE <=4: Susceptible Escherichia coli LEVOFLOXACIN BREAKPOINT URINE <=2: Susceptible Escherichia coli PIPERACILLIN BREAKPOINT URINE <=16: Susceptible Escherichia coli TRIMETHOPRIM/ SULFAMETHOXAZOLE BREAKPOINT URINE <=2/38: Susceptible Escherichia coli TOBRAMYCIN BREAKPOINT URINE <=4: Susceptible us Farrukh Napier MD MICROBIOLOGY - GENERAL ORD ERABLES Final Result [facility]YANETH MANCIA [facility]# [id number] [facility] [place] [address] documented in this encounter Visit Diagnoses Not on filedocumented in this encounter Additional Health Concerns Infection Onset Date Last Indicated Resolved Time R/O COVID-19 05/03/2020 05/03/2020 05/03/2020 5:06 AM CHIEF ENGINEER'S HELPER documented as of this encounter Care Teams Estimating Manager Relationship Specialty Start Date End Date Daniel Mae MD [address] [phone] PCP - General Family Practice 12/17/15 documented as of this encounter
--- OUTSIDE RECORDS SUMMARY | 2025-01-12 22:49 | XMS_ITS | Encounter Summary ---
Author Organization [facility] Address [address] [place] [address] Care Team Providers Care Horticultural Specialty Grower Inside Name Role Phone Daniel Mae MD Primary Care Provider [phone] Encounter Details Date Type Department Care Team (Latest Contact Info) Description 06/23/[address] [address] Syd Avilez DO NO ADDRESS ON FILE LUMBAGO (Primary Dx); SCIATICA; Sprain lumbosacral Social History Tobacco Use Types Packs/Day Years Used Date Smoking Tobacco: Never Assessed Comments Unknown Sex and Gender Information Value Date Recorded Sex Assigned at Not on file Legal Sex Female 4:24 AM SOLE LEATHER CUTTING MACHINE OPERATOR Gender Identity Not on file Sexual Orientation Not on file documented as of this encounter Plan of Treatment Not on file documented as of this encounter Visit Diagnoses Diagnosis Lumbago- Primary Sciatica Sprain lumbosacral Sprain of lumbosacral (joint) (ligament) documented in this encounter Additional Health Concerns Infection Onset Date Last Indicated Resolved Time R/O COVID-19 05/03/2020 05/03/2020 05/03/2020 5:06 AM SOLE LEATHER CUTTING MACHINE OPERATOR documented as of this encounter Care Teams Horticultural Specialty Grower Inside Relationship Specialty Start Date End Date Daniel Mae MD [address] [address] PCP - General Family Practice 12/17/15 documented as of this encounter
--- OUTSIDE RECORDS SUMMARY | 2025-01-12 22:49 | XMS_ITS | Encounter Summary ---
Author Organization [facility] Address [address] [place] [address] Care Team Providers Care Meat Selector Name Role Phone Daniel Mae MD Primary Care Provider +1 [phone] Encounter Details Date Type Department Care Team (Latest Contact Info) Description 02/07/2005 Outpatient Historical [facility] Medicine [place] [address] [facility] [address] [place] [address] Ar Lambert MD [address] [address] HYPERLIPIDEMIA NEC/NOS (Primary Dx); DIABETES MELLITUS TYPE II-UNCOMPL (CMS/HCC) Social History Tobacco Use Types Packs/Day Years Used Date Smoking Tobacco: Never Assessed Comments Unknown Sex and Gender Information Value Date Recorded Sex Assigned at Not on file Legal Sex Female 4:24 AM ETL DATA ARCHITECT Gender Identity Not on file Sexual Orientation Not on file documented as of this encounter Plan of Treatment Not on file documented as of this encounter Visit Diagnoses Diagnosis Other and unspecified hyperlipidemia- Primary Type II or unspecified type diabetes mellitus without mention of complication, not stated as uncontrolled documented in this encounter Additional Health Concerns Infection Onset Date Last Indicated Resolved Time R/O COVID-19 05/03/2020 05/03/2020 05/03/2020 5:06 AM ETL DATA ARCHITECT documented as of this encounter Care Teams Meat Selector Relationship Specialty Start Date End Date Daniel Mae MD [address] [address] PCP - General Family Practice 12/17/15 documented as of this encounter
--- OUTSIDE RECORDS SUMMARY | 2025-01-12 22:49 | XMS_ITS | Encounter Summary ---
Author Organization [facility] Address [address] [place] [address] Care Team Providers Care Insurance Associate Name Role Phone Daniel Mae MD Primary Care Provider [phone] [phone] Encounter Details Date Type Department Care Team (Late st Contact Info) Description 08/01/2014 Lab Requisition [facility] General Laboratory Services [place] [address] [place] [address] Anil Matos MD NO ADDRESS ON FILE Social History Tobacco Use Types Packs/Day Years Used Date Smoking Tobacco: Never Smokeless Tobacco: Never Alcohol Use Standard Drinks/Week Comments Yes 1.7 (1 standard drink = 0.6 oz p ure alcohol) yearly Comments No Sex and Gender Information Value Date Recorded Sex Assigned at Not on file Legal Sex Female 4:24 AM INSTITUTIONAL RESEARCH COORDINATOR Gender Identity Not on file Sexual Orientation [...] Date/Time Associated Diagnosis Comments HEMOGLOBIN A1C Routine 08/01/2014 11:31 AM CDT CHOLESTEROL TOTAL Routine 08/01/2014 11: 31 AM CDT documented in this encounter Results * CHOLESTEROL TOTAL (08/01/2014 11:31 AM CDT) CHOLESTEROL 130 130 - 200 mg/dL 08/01/2014 12:00 PM CDT [facility] Blood Venipuncture - L ab Collect / Unknown 08/01/2014 11:31 AM CDT 08/01/2014 11:31 AM CDT Narrative [facility] - 08/01/2014 12:00 PM CDT TOTAL CHOLESTEROL mg/dL Desirable < 200 Borderline High 200 - 239 High >= 240 Based on AHA/NCEP Guidelines. Anil Croft MD CHEMISTRY ORDER ROLO Final Result Performing Organization Address [facility] de Phone Number [facility] [employer] [facility] CLIA # [id number] [address] [place] [address] [phone] * (ABNORMAL) HEMOGLOBIN A1C (08/01/2014 11:31 AM CDT) HEMOGLOBIN A1C 7.3(H) 4.5 - 6.2 % 08/01/2014 12:00 PM CDT [facility] EST. AVG GLUCOSE, A1C 163 mg/dL 08/01/2014 12:00 PM CDT [facility] Blood Venipuncture - L ab Collect / Unknown 08/01/2014 11:31 AM CDT 08/01/2014 11:31 AM CDT Anil Croft MD CHEMISTRY ORDER ROLO Final Result Performing Organization Address [facility] Co de Phone Number [facility] CLIA # [id number] [address] [place] [address] [phone] documented in this encounter Visit Diagnoses Not on filedocumented in this encounter Additional Health Concerns Infection Onset Date Last Indicated Resolved Time R/O COVID-19 05/03/2020 05/03/2020 05/03/2020 5:06 AM INSTITUTIONAL RESEARCH COORDINATOR Assessment Noted Time PHQ-9 Depression Total Score: 2 02/29/20 14 10:00 AM CDT documented as of this encounter Care Teams Insurance Associate Relationship Specialty Start Date End Date Daniel Mae MD [address] [address] PCP - General Family Practice 12/17/15 documented as of this encounter
--- OUTSIDE RECORDS SUMMARY | 2025-01-12 22:49 | XMS_ITS | Encounter Summary ---
Author Organization [facility] Address [address] [place] [address] Care Team Providers Care Or Manager Name Role Phone Daniel Mae MD Primary Care Provider +1 [phone] Encounter Details Date Type Department Care Team (Latest Contact Info) Description 08/21/2007 Outpatient [facility] [address] [address] José Warren Thoracic or Lumbosacral Neuritis or Radiculitis, Unspecified; Lumbago; Unspecified Essential Hypertension; Unspecified Constipation; DM w/o Complication Type II (CMS/HCC); Esophageal Reflux Social History Tobacco Use Types Packs/Day Years Used Date Smoking Tobacco: Never Assessed Comments Unknown Sex and Gender Information Value Date Recorded Sex Assigned at Not on file Legal Sex Female 4:24 AM CORE JAVA SOFTWARE ENGINEER Gender Identity Not on file Sexual Orientation Not on file documented as of this encounter Plan of Treatment Not on file documented as of this encounter Visit Diagnoses Diagnosis Thoracic or lumbosacral neuritis or radiculitis, unspecified Lumbago Unspecified essential hypertension Unspecified constipation Type II or unspecified type diabetes mellitus without mention of complication, not stated as uncontrolled Esophageal reflux documented in this encounter Additional Health Concerns Infection Onset Date Last Indicated Resolved Time R/O COVID-19 05/03/2020 05/03/2020 05/03/2020 5:06 AM CORE JAVA SOFTWARE ENGINEER documented as of this encounter Care Teams Or Manager Relationship Specialty Start Date End Date Daniel Mae MD [address] [address] PCP - General Family Practice 12/17/15 documented as of this encounter
--- OUTSIDE RECORDS SUMMARY | 2025-01-12 22:49 | XMS_ITS | Encounter Summary ---
Author Organization [facility] Address [address] [place] [address] Care Team Providers Care Geomatics Professor Name Role Phone Daniel Mae MD Primary Care Provider [phone] [phone] Encounter Details Date Type Department Care Team (Latest Contact Info) Description 02/16/2007 Outpatient Historical [facility] Medicine [place] 104 [facility] 60 [place] [address] Loly Cano, OTTER TRAWLER [place] [address] [place] [address] Crushing Injury Finger (Primary Dx) Social History Tobacco Use Types Packs/Day Years Used Date Smoking Tobacco: Never Assessed Comments Unknown Sex and Gender Information Value Date Recorded Sex Assigned at Not on file Legal Sex Female 4:24 AM LIME MIXER TENDER Gender Identity Not on file Sexual Orientation Not on file documented as of this encounter Plan of Treatment Not on file documented as of this encounter Visit Diagnoses Diagnosis Crushing injury finger- Primary Crushing injury of finger(s) documented in this encounter Additional Health Concerns Infection Onset Date Last Indicated Resolved Time R/O COVID-19 05/03/2020 05/03/2020 05/03/2020 5:06 AM LIME MIXER TENDER documented as of this encounter Care Teams Geomatics Professor Relationship Specialty Start Date End Date Daniel Mae MD [address] [phone] PCP - General Family Practice 12/17/15 documented as of this encounter
--- OUTSIDE RECORDS SUMMARY | 2025-01-12 22:49 | XMS_ITS | Encounter Summary ---
Author Organization [facility] Address [address] [place] [address] Care Team Providers Care Convention Services Director Name Role Phone Daniel Mae MD Primary Care Provider [phone] [phone] Encounter Details Date Type Department Care Team (Late st Contact Info) Description 07/26/2002 Outpatient Historical [facility] [address] [place] [address] Dylon Miguel, GRUPO NO ADDRESS ON FILE Social History Tobacco Use Types Packs/Day Years Used Date Smoking Tobacco: Never Assessed Comments Unknown Sex and Gender Information Value Date Recorded Sex Assigned at Not on file Legal Sex Female 4:24 AM KEY HOLDER Gender Identity Not on file Sexual Orientation Not on file documented as of this encounter Plan of Treatment Not on file documented as of this encounter Visit Diagnoses Not on filedocumented in this encounter Additional Health Concerns Infection Onset Date Last Indicated Resolved Time R/O COVID-19 05/03/2020 05/03/2020 05/03/2020 5:06 AM KEY HOLDER documented as of this encounter Care Teams Convention Services Director Relationship Specialty Start Date End Date Daniel Mae MD [address] [place] [address] PCP - General Family Practice 12/17/15 documented as of this encounter
--- OUTSIDE RECORDS SUMMARY | 2025-01-12 22:49 | XMS_ITS | Encounter Summary ---
Author Organization [facility] Address [address] [place] [address] Care Team Providers Care Flow Nurse Name Role Phone Daniel Mae MD Primary Care Provider [phone] Encounter Details Date Type Department Care Team (Latest Contact Info) Description 06/19/2006 Outpatient [facility] Medicine [address] [address] Ar Beck MD NO ADDRESS ON FILE DM w/o Complication Type II, Uncontrolled (Primary Dx); Diffus Cystic Mastopathy Social History Tobacco Use Types Packs/Day Years Used Date Smoking Tobacco: Never Assessed Comments Unknown Sex and Gender Information Value Date Recorded Sex Assigned at Not on file Legal Sex Female 4:24 AM STENCIL SPRAYER Gender Identity Not on file Sexual Orientation Not on file documented as of this encounter Plan of Treatment Not on file documented as of this encounter Visit Diagnoses Diagnosis Type II or unspecified type diabetes mellitus without mention of complication, uncontrolled- Primary Diffus cystic mastopathy Diffuse cystic mastopathy documented in this encounter Additional Health Concerns Infection Onset Date Last Indicated Resolved Time R/O COVID-19 05/03/2020 05/03/2020 05/03/2020 5:06 AM STENCIL SPRAYER documented as of this encounter Care Teams Flow Nurse Relationship Specialty Start Date End Date Daniel Mae MD [address] [place] [address] PCP - General Family Practice 12/17/15 documented as of this encounter
--- OUTSIDE RECORDS SUMMARY | 2025-01-12 22:49 | XMS_ITS | Encounter Summary ---
Author Organization [facility] Address [address] [place] [address] Care Team Providers Care Platen Press Operator Apprentice Name Role Phone Daniel Mae MD Primary Care Provider [phone] [phone] Encounter Details Date Type Department Care Team (Latest Contact Info) Description 03/23/2007 Outpatient [facility] Medicine [address] [address] Deshawn Alejandra MD NO ADDRESS ON FILE Pain in Joint, Shoulder Region (Primary Dx) Social History Tobacco Use Types Packs/Day Years Used Date Smoking Tobacco: Never Assessed Comments Unknown Sex and Gender Information Value Date Recorded Sex Assigned at Not on file Legal Sex Female 4:24 AM INTERMODAL DISPATCHER Gender Identity Not on file Sexual Orientation Not on file documented as of this encounter Plan of Treatment Not on file documented as of this encounter Visit Diagnoses Diagnosis Pain in joint, shoulder region- Primary documented in this encounter Additional Health Concerns Infection Onset Date Last Indicated Resolved Time R/O COVID-19 05/03/2020 05/03/2020 05/03/2020 5:06 AM INTERMODAL DISPATCHER documented as of this encounter Care Teams Platen Press Operator Apprentice Relationship Specialty Start Date End Date Daniel Mae MD [address] [address] PCP - General Family Practice 12/17/15 documented as of this encounter
--- OUTSIDE RECORDS SUMMARY | 2025-01-12 22:49 | XMS_ITS | Encounter Summary ---
Author Organization [facility] Address [address] [place] [address] Care Team Providers Care Deputy Sheriff Civil Division Name Role Phone Daniel Mae MD Primary Care Provider [phone] [phone] Encounter Details Date Type Department Care Team (Late st Contact Info) Description 03/31/2007 Outpatient Historical [facility] Deshawn Alejandra MD NO ADDRESS ON FILE Social History Tobacco Use Types Packs/Day Years Used Date Smoking Tobacco: Never Assessed Comments Unknown Sex and Gender Information Value Date Recorded Sex Assigned at Not on file Legal Sex Female 4:24 AM WINDOWS SERVER ENGINEER Gender Identity Not on file Sexual Orientation Not on file documented as of this encounter Plan of Treatment Not on file documented as of this encounter Visit Diagnoses Not on filedocumented in this encounter Additional Health Concerns Infection Onset Date Last Indicated Resolved Time R/O COVID-19 05/03/2020 05/03/2020 05/03/2020 5:06 AM WINDOWS SERVER ENGINEER documented as of this encounter Care Teams Deputy Sheriff Civil Division Relationship Specialty Start Date End Date Daniel Mae MD [address] [place] [address] PCP - General Family Practice 12/17/15 documented as of this encounter
--- OUTSIDE RECORDS SUMMARY | 2025-01-12 22:49 | XMS_ITS | Encounter Summary ---
Author Organization [facility] Address [address] [facility] [address]: [place] [address] Care Team Providers Care Umbrella Cutter Name Role Phone Daniel Mae MD Primary Care Provider [phone] [phone] Encounter Details Date Type Department Care Team (Late st Contact Info) Description 10/08/2006 Outpatient Historical Loly Cano, HAT FORMING MACHINE OPERATOR [address] [place] [address] Social History Tobacco Use Types Packs/Day Years Used Date Smoking Tobacco: Never Assessed Comments Unknown Sex and Gender Information Value Date Recorded Sex Assigned at Not on file Legal Sex Female 4:24 AM CCNP Gender Identity Not on file Sexual Orientation Not on file documented as of this encounter Plan of Treatment Not on file documented as of this encounter Procedures Procedure Name Priority Date/Time Associated Diagnosis Comments ACUTE HEPATITIS PANEL Routine 10/08/2006 1:01 PM CDT documented in this encounter Results * ACUTE HEPATITIS PANEL (10/08/2006 1:01 PM CDT) HEPATITIS B SURFACE AG Negative Negative INTERFACE SYSTEM HEPATITIS B CORE IGM Negative Negative INTERFACE SYSTEM HEPATITIS A IGM Negative Negative INTE RFACE SYSTEM HEPATITIS C AB Negative Negative INTER FACE SYSTEM Comment: HCV antibody testing is performed by E.I.A. methodology. CDC recommends positive HCV antibody tests have confirmation testing. Low positive results should be confirmed with RIBA. This will determine if results are false positive. If a high positive result is obtained an HCV RNA may be run. The RNA test confirms infection and the level of the RNA, to some extent, helps guide treatment. The same specimen can be used for RIBA and will be held for 7 days. Please contact the Immunology lab if RIBA testing is desired. However, if HCV RNA testing is desired, a new specimen must be collected. Blood should be collected in SST (serum) or EDTA (plasma) separation tubes. Separate serum or plasma from whole blood within 6 hours of collection. Serum or plasma can be transported at refrigerated temperature or frozen and transported. 10/08/2006 1:01 PM CDT us Loly Cano HAT FORMING MACHINE OPERATOR CHEMISTRY ORDERABLES Edited INTERFACE SYSTEM Refer to clinic/hospital department documented in this encounter Visit Diagnoses Not on filedocumented in this encounter Additional Health Concerns Infection Onset Date Last Indicated Resolved Time R/O COVID-19 05/03/2020 05/03/2020 05/03/2020 5:06 AM CCNP documented as of this encounter Care Teams Umbrella Cutter Relationship Specialty Start Date End Date Daniel Mae MD [address] [facility] 60 [place] [address] PCP - General Family Practice 12/17/15 documented as of this encounter
--- OUTSIDE RECORDS SUMMARY | 2025-01-12 22:49 | XMS_ITS | Encounter Summary ---
Author Organization [facility] Address [address] [place] [address] Care Team Providers Care Textile Scrap Salvager Name Role Phone Daniel Mae MD Primary Care Provider [phone] Encounter Details Date Type Department Care Team (Latest Contact Info) Description 08/09/2001 Outpatient [facility] Medicine [place] [employer] 104 [facility] 60 [place] [address] Ar Lambert MD [address] [address] CARDIAC DYSRHYTHMIA NOS (Primary Dx); SHORTNESS OF BREATH; AFTERCARE CASE HARDENER USE MEDICATN; HYPERTENSION NOS Social History Tobacco Use Types Packs/Day Years Used Date Smoking Tobacco: Never Assessed Comments Unknown Sex and Gender Information Value Date Recorded Sex Assigned at Not on file Legal Sex Female 4:24 AM CURRICULUM DEVELOPER Gender Identity Not on file Sexual Orientation Not on file documented as of this encounter Plan of Treatment Not on file documented as of this encounter Visit Diagnoses Diagnosis Cardiac dysrhythmia, unspecified- Primary Shortness of breath Encounter for long-term (current) use of other medications Unspecified essential hypertension documented in this encounter Additional Health Concerns Infection Onset Date Last Indicated Resolved Time R/O COVID-19 05/03/2020 05/03/2020 05/03/2020 5:06 AM CURRICULUM DEVELOPER documented as of this encounter Care Teams Textile Scrap Salvager Relationship Specialty Start Date End Date Daniel Mae MD [address] [address] PCP - General Family Practice 12/17/15 documented as of this encounter
--- OUTSIDE RECORDS SUMMARY | 2025-01-12 22:49 | XMS_ITS | Encounter Summary ---
Author Organization [facility] Address [address] [place] [address] Care Team Providers Care Fine Artist Name Role Phone Daniel Mae MD Primary Care Provider [phone] [phone] Encounter Details Date Type Department Care Team (Latest Contact Info) Description 07/11/[address] [address] Dylon Miguel PA NO ADDRESS ON FILE Allergy, Unspecified not Elsewhere Classified (Primary Dx); Unspecified Conjunctivitis; Unspecified Backache Social History Tobacco Use Types Packs/Day Years Used Date Smoking Tobacco: Never Assessed Comments Unknown Sex and Gender Information Value Date Recorded Sex Assigned at Not on file Legal Sex Female 4:24 AM MACHINE HEEL SEAT FITTER Gender Identity Not on file Sexual Orientation Not on file documented as of this encounter Plan of Treatment Not on file documented as of this encounter Visit Diagnoses Diagnosis Allergy, unspecified not elsewhere classified- Primary Conjunctivitis unspecified Conjunctivitis, unspecified Backache, unspecified documented in this encounter Additional Health Concerns Infection Onset Date Last Indicated Resolved Time R/O COVID-19 05/03/2020 05/03/2020 05/03/2020 5:06 AM MACHINE HEEL SEAT FITTER documented as of this encounter Care Teams Fine Artist Relationship Specialty Start Date End Date Daniel Mae MD [address] [address] PCP - General Family Practice 12/17/15 documented as of this encounter
--- OUTSIDE RECORDS SUMMARY | 2025-01-12 22:49 | XMS_ITS | Encounter Summary ---
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) Social History Tobacco Use Types Packs/Day Years Used Date Smoking Tobacco: Never Assessed Comments Unknown Sex and Gender Information Value Date Recorded Sex Assigned at Not on file Legal Sex Female 4:24 AM CONCRETE SPREADER Gender Identity Not on file Sexual Orientation Not on file documented as of this encounter Plan of Treatment Not on file documented as of this encounter Visit Diagnoses Diagnosis Type II or unspecified type diabetes mellitus without mention of complication, not stated as uncontrolled- Primary documented in this encounter Additional Health Concerns Infection Onset Date Last Indicated Resolved Time R/O COVID-19 05/03/2020 05/03/2020 05/03/2020 5:06 AM CONCRETE SPREADER documented as of this encounter Care Teams Design Engineer Relationship Specialty Start Date End Date Daniel Mae MD [address] [facility] [place] [address] PCP - General Family Practice 12/17/15 documented as of this encounter
--- OUTSIDE RECORDS SUMMARY | 2025-01-12 22:49 | XMS_ITS | Encounter Summary ---
Author Organization [facility] Address [address] [place] [address] Care Team Providers Care Missile Facilities Repairer Name Role Phone Daniel Mae MD Primary Care Provider [phone] [phone] Encounter Details Date Type Department Care Team (Latest Contact Info) Description 04/03/2005 Outpatient [facility] Medicine [place] [address] [facility] 60 [place] [address] Loly Cano, ISOTOPE TECHNOLOGIST [address] [place] [address] DIARRHEA NOS (Primary Dx); ABDOMINAL PAIN UNSPEC SITE Social History Tobacco Use Types Packs/Day Years Used Date Smoking Tobacco: Never Assessed Comments Unknown Sex and Gender Information Value Date Recorded Sex Assigned at Not on file Legal Sex Female 4:24 AM CASE MANAGEMENT ASSOCIATE Gender Identity Not on file Sexual Orientation Not on file documented as of this encounter Plan of Treatment Not on file documented as of this encounter Visit Diagnoses Diagnosis Diarrhea- Primary Abdominal pain, unspecified site documented in this encounter Additional Health Concerns Infection Onset Date Last Indicated Resolved Time R/O COVID-19 05/03/2020 05/03/2020 05/03/2020 5:06 AM CASE MANAGEMENT ASSOCIATE documented as of this encounter Care Teams Missile Facilities Repairer Relationship Specialty Start Date End Date Daniel Mae MD [address] [phone] PCP - General Family Practice 12/17/15 documented as of this encounter
--- OUTSIDE RECORDS SUMMARY | 2025-01-12 22:49 | XMS_ITS | Encounter Summary ---
Author Organization [facility] Address [address] [place] [address] Care Team Providers Care Pants Busheler Name Role Phone Daniel Mae MD Primary Care Provider [phone] [phone] Encounter Details Date Type Department Care Team (Latest Contact Info) Description 11/23/2001 Outpatient [facility] Medicine [address] [address] Syd Avilez DO NO ADDRESS ON FILE ACUTE BRONCHITIS (Primary Dx) Social History Tobacco Use Types Packs/Day Years Used Date Smoking Tobacco: Never Assessed Comments Unknown Sex and Gender Information Value Date Recorded Sex Assigned at Not on file Legal Sex Female 4:24 AM SHOE LINING FITTER Gender Identity Not on file Sexual Orientation Not on file documented as of this encounter Plan of Treatment Not on file documented as of this encounter Visit Diagnoses Diagnosis Acute bronchitis- Primary documented in this encounter Additional Health Concerns Infection Onset Date Last Indicated Resolved Time R/O COVID-19 05/03/2020 05/03/2020 05/03/2020 5:06 AM SHOE LINING FITTER documented as of this encounter Care Teams Pants Busheler Relationship Specialty Start Date End Date Daniel Mae MD [address] [address] PCP - General Family Practice 12/17/15 documented as of this encounter
--- OUTSIDE RECORDS SUMMARY | 2025-01-12 22:49 | XMS_ITS | Encounter Summary ---
Author Organization [facility] Address [address] [place] [address] Care Team Providers Care Camera Technician Name Role Phone Daniel Mae MD Primary Care Provider [phone] Encounter Details Date Type Department Care Team (Late st Contact Info) Description 06/24/2005 Outpatient Historical [facility] Syd Avilez W, DO NO ADDRESS ON FILE Social History Tobacco Use Types Packs/Day Years Used Date Smoking Tobacco: Never Assessed Comments Unknown Sex and Gender Information Value Date Recorded Sex Assigned at Not on file Legal Sex Female 4:24 AM LOCAL TANKER TRUCK DRIVER Gender Identity Not on file Sexual Orientation Not on file documented as of this encounter Plan of Treatment Not on file documented as of this encounter Visit Diagnoses Not on filedocumented in this encounter Additional Health Concerns Infection Onset Date Last Indicated Resolved Time R/O COVID-19 05/03/2020 05/03/2020 05/03/2020 5:06 AM LOCAL TANKER TRUCK DRIVER documented as of this encounter Care Teams Camera Technician Relationship Specialty Start Date End Date Daniel Mae MD [address] [place] [phone] PCP - General Family Practice 12/17/15 documented as of this encounter
--- OUTSIDE RECORDS SUMMARY | 2025-01-12 22:49 | XMS_ITS | Encounter Summary ---
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) Social History Tobacco Use Types Packs/Day Years Used Date Smoking Tobacco: Never Assessed Comments Unknown Sex and Gender Information Value Date Recorded Sex Assigned at Not on file Legal Sex Female 4:24 AM ELECTRICAL TEST TECHNICIAN Gender Identity Not on file Sexual [...] R/O COVID-19 05/03/2020 05/03/2020 05/03/2020 5:06 AM ELECTRICAL TEST TECHNICIAN documented as of this encounter Care Teams Research Greenhouse Supervisor Relationship Specialty Start Date End Date Daniel Mae MD [address] [facility] [address] [place] [address] PCP - General Family Practice 12/17/15 documented as of this encounter
--- OUTSIDE RECORDS SUMMARY | 2025-01-12 22:49 | XMS_ITS | Encounter Summary ---
Author Organization [facility] Address [address] [place] [address] Care Team Providers Care Package Dye Stand Loader Name Role Phone Daniel Mae MD Primary Care Provider [phone] Encounter Details Date Type Department Care Team (Latest Contact Info) Description 02/27/[address] 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); Unspecified Inflammation of Eyelid; Unspecified Hereditary and Idiopathic Peripheral Neuropathy; Irritable Bowel Syndrome Social History Tobacco Use Types Packs/Day Years Used Date Smoking Tobacco: Never Assessed Comments Unknown Sex and Gender Information Value Date Recorded Sex Assigned at Not on file Legal Sex Female 4:24 AM CUSTOMER CARE AGENT Gender Identity Not on file Sexual Orientation Not on file documented as of this encounter Plan of Treatment Not on file documented as of this encounter Visit Diagnoses Diagnosis Type II or unspecified type diabetes mellitus without mention of complication, not stated as uncontrolled- Primary Unspecified inflammation of eyelid Unspecified hereditary and idiopathic peripheral neuropathy Irritable bowel syndrome documented in this encounter Additional Health Concerns Infection Onset Date Last Indicated Resolved Time R/O COVID-19 05/03/2020 05/03/2020 05/03/2020 5:06 AM CUSTOMER CARE AGENT documented as of this encounter Care Teams Package Dye Stand Loader Relationship Specialty Start Date End Date Daniel Mae MD [address] [address] PCP - General Family Practice 12/17/15 documented as of this encounter
--- OUTSIDE RECORDS SUMMARY | 2025-01-12 22:49 | XMS_ITS | Encounter Summary ---
Author Organization [facility] Address [address] [facility] [address] [facility]: [place] [address] Care Team Providers Care Account Management Assistant Name Role Phone Daniel Mae MD Primary Care Provider [phone] Encounter Details Date Type Department Care Team (Late st Contact Info) Description 04/08/2001 Outpatient Historical Ar Lambert MD [address] [address] Social History Tobacco Use Types Packs/Day Years Used Date Smoking Tobacco: Never Assessed Comments Unknown Sex and Gender Information Value Date Recorded Sex Assigned at Not on file Legal Sex Female 4:24 AM COLLEGE ADMINISTRATOR Gender Identity Not on file Sexual Orientation Not on file documented as of this encounter Plan of Treatment Not on file documented as of this encounter Visit Diagnoses Not on filedocumented in this encounter Additional Health Concerns Infection Onset Date Last Indicated Resolved Time R/O COVID-19 05/03/2020 05/03/2020 05/03/2020 5:06 AM COLLEGE ADMINISTRATOR documented as of this encounter Care Teams Account Management Assistant Relationship Specialty Start Date End Date Daniel Mae MD [address] [facility] [address] [place] [phone] PCP - General Family Practice 12/17/15 documented as of this encounter
--- OUTSIDE RECORDS SUMMARY | 2025-01-12 22:49 | XMS_ITS | Encounter Summary ---
Author Organization [facility] Address [address] [place] [address] Care Team Providers Care Computer Operations Supervisor Name Role Phone Daniel Mae MD Primary Care Provider [phone] Encounter Details Date Type Department Care Team (Late st Contact Info) Description 09/27/2002 Outpatient Historical [facility] [place] [address] [facility] [address] [place] [address] Social History Tobacco Use Types Packs/Day Years Used Date Smoking Tobacco: Never Assessed Comments Unknown Sex and Gender Information Value Date Recorded Sex Assigned at Not on file Legal Sex Female 4:24 AM DRIVER SUPERVISOR Gender Identity Not on file Sexual Orientation Not on file documented as of this encounter Plan of Treatment Not on file documented as of this encounter Visit Diagnoses Not on filedocumented in this encounter Additional Health Concerns Infection Onset Date Last Indicated Resolved Time R/O COVID-19 05/03/2020 05/03/2020 05/03/2020 5:06 AM DRIVER SUPERVISOR documented as of this encounter Care Teams Computer Operations Supervisor Relationship Specialty Start Date End Date Daniel Mae MD [address] [place] [phone] PCP - General Family Practice 12/17/15 documented as of this encounter
--- OUTSIDE RECORDS SUMMARY | 2025-01-12 22:49 | XMS_ITS | Encounter Summary ---
Author Organization [facility] Address [address] [place] [address] Care Team Providers Care Payroll Administrative Assistant Name Role Phone Daniel Mae MD Primary Care Provider [phone] Encounter Details Date Type Department Care Team (Latest Contact Info) Description 10/08/2006 Outpatient Historical [facility] [place] [address] [facility] [address] [place] [address] Loly Cano, PAVING INSPECTOR [address] [place] [address] DM w/o Complication Type II, Uncontrolled (Primary Dx); Fluid Overload Social History Tobacco Use Types Packs/Day Years Used Date Smoking Tobacco: Never Assessed Comments Unknown Sex and Gender Information Value Date Recorded Sex Assigned at Not on file Legal Sex Female 4:24 AM PRODUCE RUNNER Gender Identity Not on file Sexual Orientation Not on file documented as of this encounter Plan of Treatment Not on file documented as of this encounter Visit Diagnoses Diagnosis Type II or unspecified type diabetes mellitus without mention of complication, uncontrolled- Primary Fluid overload documented in this encounter Additional Health Concerns Infection Onset Date Last Indicated Resolved Time R/O COVID-19 05/03/2020 05/03/2020 05/03/2020 5:06 AM PRODUCE RUNNER documented as of this encounter Care Teams Payroll Administrative Assistant Relationship Specialty Start Date End Date Daniel Mae MD [address] [address] PCP - General Family Practice 12/17/15 documented as of this encounter
--- OUTSIDE RECORDS SUMMARY | 2025-01-12 22:49 | XMS_ITS | Encounter Summary ---
Author Organization [facility] Address [address] [place] [address] Care Team Providers Care Global Ceo Name Role Phone Daniel Mae MD Primary Care Provider [phone] Encounter Details Date Type Department Care Team (Latest Contact Info) Description 02/13/2012 Ancillary Orders [facility] Pre-Registration [place] CALL TO MAKE APPOINTMENT ONLY [address] [place] [address] Deshawn Alejandra MD NO ADDRESS ON FILE Other screening mammogram Social History Tobacco Use Types Packs/Day Years Used Date Smoking Tobacco: Never Smokeless Tobacco: Never Alcohol Use Standard Drinks/Week Comments Yes 1.7 (1 standard drink = 0.6 oz p ure alcohol) yearly Comments No Sex and Gender Information Value Date Recorded Sex Assigned at Not on file Legal Sex Female 4:24 AM ZONING TECHNICIAN Gender Identity Not on file Sexual Orientation Not on file documented as of this encounter Plan of Treatment Not on file documented as of this encounter Visit Diagnoses Diagnosis Other screening mammogram documented in this encounter Additional Health Concerns Infection Onset Date Last Indicated Resolved Time R/O COVID-19 05/03/2020 05/03/2020 05/03/2020 5:06 AM ZONING TECHNICIAN documented as of this encounter Care Teams Global Ceo Relationship Specialty Start Date End Date Daniel Mae MD [address] [facility] [address] [place] [address] PCP - General Family Practice 12/17/15 documented as of this encounter
--- OUTSIDE RECORDS SUMMARY | 2025-01-12 22:49 | XMS_ITS | Encounter Summary ---
Author Organization [facility] Address [address] [place] [address] Care Team Providers Care Staking Engineer Name Role Phone Daniel Mae MD Primary Care Provider [phone] Encounter Details Date Type Department Care Team (Latest Contact Info) Description 11/17/2005 Outpatient Historical [facility] [address] [place] [address] [facility] [address] [place] [address] Augie Tello MD [address] [facility] [address] [place] [address] Spinal Stenosis of Lumbar Region (Primary Dx) Social History Tobacco Use Types Packs/Day Years Used Date Smoking Tobacco: Never Assessed Comments Unknown Sex and Gender Information Value Date Recorded Sex Assigned at Not on file Legal Sex Female 4:24 AM AUTOMOBILE DAMAGE FIELD APPRAISER Gender Identity Not on file Sexual Orientation Not on file documented as of this encounter Plan of Treatment Not on file documented as of this encounter Visit Diagnoses Diagnosis Spinal stenosis, lumbar region, without neurogenic claudication- Primary documented in this encounter Additional Health Concerns Infection Onset Date Last Indicated Resolved Time R/O COVID-19 05/03/2020 05/03/2020 05/03/2020 5:06 AM AUTOMOBILE DAMAGE FIELD APPRAISER documented as of this encounter Care Teams Staking Engineer Relationship Specialty Start Date End Date Daniel Mae MD [address] [phone] PCP - General Family Practice 12/17/15 documented as of this encounter
--- OUTSIDE RECORDS SUMMARY | 2025-01-12 22:49 | XMS_ITS | Encounter Summary ---
Author Organization [facility] Address [address] [place] [address] Care Team Providers Care Search Engineer Name Role Phone Daniel Mae MD Primary Care Provider [phone] Encounter Details Date Type Department Care Team (Latest Contact Info) Description 10/08/[address] [address] Yuli Page NP NO ADDRESS ON FILE Lumbar Disc Displacement (Primary Dx) Social History Tobacco Use Types Packs/Day Years Used Date Smoking Tobacco: Never Assessed Comments Unknown Sex and Gender Information Value Date Recorded Sex Assigned at Not on file Legal Sex Female 4:24 AM CELL TESTER Gender Identity Not on file Sexual Orientation Not on file documented as of this encounter Plan of Treatment Not on file documented as of this encounter Visit Diagnoses Diagnosis Lumbar disc displacement- Primary Displacement of lumbar intervertebral disc without myelopathy documented in this encounter Additional Health Concerns Infection Onset Date Last Indicated Resolved Time R/O COVID-19 05/03/2020 05/03/2020 05/03/2020 5:06 AM CELL TESTER documented as of this encounter Care Teams Search Engineer Relationship Specialty Start Date End Date Daniel Mae MD [address] [address] PCP - General Family Practice 12/17/15 documented as of this encounter
--- OUTSIDE RECORDS SUMMARY | 2025-01-12 22:49 | XMS_ITS | Clinical Summary ---
Author Organization [facility] tone Address [address] [place] [address] Care Team Providers [employer] Safety Program Coordinator Name Role Phone Daniel Mae MD Primary Care Provider [phone] Allergies Active Allergy Reactions Criticality Noted Date Comments Codeine Hives High 11/26/2007 Diphenhydramine Hcl Headache Low 02/23/2008 Morphine Swelling Low 11/26/2007 Orphenadrine Citrate Nausea and Vomiting Low 2008 Sulfa (Sulfonamide Antibiotics) Swelling Low 11/26/2007 Unclassified Drug Other (See Comments) 12/21/2012 Goes into shock. Fresh frozen platelets Other reaction(s): Other (see comments) Goes into shock. Fresh frozen platelets Medications Insulin [place], Disposable, (BD INSULIN PEN NEEDLE UF SHORT) 31 X 5/16 Needle Injects tid per sliding scale dx 250.01 100 Each 5 03/09/20 13 Active blood sugar diagnostic Strip Use to check sugars three times daily 250.02 100 Each 11 09/20/19 14 Active Blood-Glucose Meter Please give Accu Check brand glucose meter. Use to check sugars three times daily for Dx 250.02 1 Each 0 09/20/19 14 Active lancets Please give Accu Check brand lancets. Use to check sugars three times daily for Dx 250.02 100 Each 11 09/20/19 14 Active ondansetron (ZOFRAN ODT) 4 mg Tablet, Rapid DissolveIndication s:Reflux esophagitis,Diabet ic gastroparesis ([facility]/HCC),Intracta ble vomiting with nausea, unspecified vomiting type Place 1 Tablet (4 mg) under tongue every 8 hours as needed for Nausea. 60 Tablet 6 09/15/19 19 Active famotidine (PEPCID AC ORAL) Take by mouth 2 times daily. Active baclofen (LIORESAL) 10 mg tabletIndications: Spastic hemiplegia affecting right dominant side ([facility]) Take 2 Tablets (20 mg) by mouth 3 times daily. 180 Tablet 11 02/09/20 20 Active Tresiba FlexTouch U-200 200 unit/mL (3 mL) pen syringeIndications :Diabetic polyneuropathy associated with type 2 diabetes mellitus ([facility]) INJECT 80 UNITS SUBCUTANEOUSLY ONCE DAILY WITH BREAKFAST 45 mL 3 04/24/20 20 Active sertraline (ZOLOFT) 50 mg tabletIndications: Mild single current episode of major depressive disorder Take 1 tablet by mouth once daily 90 Tablet 1 05/13/19 21 Active insulin regular (NovoLIN R Regular U-100 Insuln) 100 unit/mL vialIndications:Ty pe 2 diabetes mellitus with stage 3b chronic kidney disease, with long-term current use of insulin ([facility]) Sliding scale insulin <150: None 150-200: 3 units 201-250: 6 units 251-300: 8 units 301-350: 10 units 351-400: 12units >401: 15 units 10 mL 06/14/19 21 Active hydrALAZINE (APRESOLINE) 10 mg tabletIndications: HTN (hypertension), benign TAKE 1 TABLET BY MOUTH THREE TIMES DAILY 05/28/19 21 Active atorvastatin (LIPITOR) 20 mg tabletIndications: Bilateral carotid artery stenosis,Type 2 diabetes mellitus with stage 3b chronic kidney disease, with long-term current use of insulin ([facility]),Mixed hyperlipidemia Take 1 Tablet (20 mg) by mouth daily. Replaces simvastatin 30 Tablet 5 06/14/19 21 Active methocarbamoL (ROBAXIN) 500 mg tablet Take 500 mg by mouth 3 times daily as needed. Active docusate sodium (COLACE) 100 mg capsule Take 100 mg by mouth 2 times daily. Active acetaminophen (TYLENOL) 500 mg tablet Take 500 mg by mouth every 6 hours as needed. Active folic acid (FOLVITE) 0.8 mg Tablet Take 800 mcg by mouth daily. Active glucose 4 gram Tablet, Chewable Take 4 Grams by mouth one time only. Active nitroglycerin (NITROSTAT) 0.4 mg Tablet, SublingualIndicati ons:Chest pain, atypical Place 1 Tablet (0.4 mg) under tongue every 5 minutes as needed for Chest Pain. 25 Tablet 2 07/04/19 Active ergocalciferol (VITAMIN D2) 50,000 unit capsuleIndications :Low vitamin D level Take 1 Capsule (50,000 Units) by mouth every 30 days. 3 Capsule 4 07/04/19 Active diazePAM (VALIUM) 5 mg tabletIndications: ALLISON (generalized anxiety disorder) Take 1 Tablet (5 mg) by mouth 1 time daily as needed for Anxiety. 30 Tablet 2 07/04/19 Active naloxone (NARCAN) 4 mg/spray [place], Non-Aerosol EMERGENCY USE ONLY: Administer 1 spray (4 mg) in one nostril one time. May repeat in alternating nostrils every 2-3 min until responsive or EMS arrives. 2 Each 3 07/04/19 Active diabetic shoes with insertsIndications :Diabetic autonomic neuropathy associated with type 2 diabetes mellitus (CMS/HCC),Diabetic ulcer of toe of left foot associated with type 2 diabetes mellitus, with fat layer exposed (CMS/HCC),Charcot foot due to diabetes mellitus (CMS/HCC),Diabetic ulcer of right midfoot associated with type 2 diabetes mellitus, limited to breakdown of skin (CMS/HCC),Type 2 diabetes mellitus with stage 3b chronic kidney disease, with long-term current use of insulin (CMS/HCC) Length of Need: 99 months. Patient has diabetes mellitus and one of the following: history of previous foot ulceration and deformity. Patient has diabetes mellitus and peripheral neuropathy. I certify the patient is being treated under comprehensive plan for diabetes and the patient needs special shoes because of diabetes. Dispense 1/ year shoe and 3/year inserts. (A8500)(A5291). 1 Each 07/04/19 Active gabapentin (NEURONTIN) 300 mg capsuleIndications :Chronic bilateral low back pain with bilateral sciatica,Degenerat ion of lumbar or lumbosacral intervertebral disc Take 2 Capsules (600 mg) by mouth daily. 180 Capsule 1 07/23/19 Active clopidogreL (PLAVIX) 75 mg Tablet Take 1 tablet by mouth once daily 90 Tablet 1 07/30/19 21 Active diclofenac sodium (VOLTAREN) 1 % gelIndications:Sally tiago osteoarthritis of right knee Apply 4 Grams to affected area 2 times daily as needed for Pain. 100 Gram 5 08/08/19 21 Active metoprolol tartrate (LOPRESSOR) 50 mg tabletIndications: HTN (hypertension), benign Take 2 Tablets (100 mg) by mouth 2 times daily. 60 Tablet 09/11/19 21 Active metFORMIN (GLUCOPHAGE) 500 mg tablet TAKE 1 TABLET BY MOUTH TWICE DAILY WITH MEALS 180 Tablet 10/09/19 21 Active hydroxyurea (HYDREA) 500 mg capsuleIndications :Elevated platelet count Take 1 capsule by mouth once daily 90 Capsule 10/09/19 21 Active HYDROcodone-acetam inophen (NORCO) 5-325 mg tabletIndications: Chronic bilateral low back pain with bilateral sciatica,Degenerat ion of lumbar or lumbosacral intervertebral disc Take 1 Tablet by mouth 2 times daily as needed for Pain, Moderate. Last Visit 08/07/2020, Dx: M54.5 Max Daily Amount: 2 Tablets 60 Tablet 10/13/19 21 Active amLODIPine (NORVASC) 10 mg tablet Take 1 tablet by mouth once daily 90 Tablet 1 10/30/19 21 Active Active Problems Problem Noted Date Diagnosed Date Diabetic ulcer of toe of lef t foot associated with type 2 diabetes mellitus, with fat layer exposed 08/07/2020 Angina pectoris 08/07/2020 ALLISON (generalized anxiety disorder) 07/03/2020 Essential thrombocytosis 07/03/2020 Secondary hyperparathyroidism of renal origin Proteinuria 12/01/2018 Low vitamin D level 11/25/2018 History of foot ulcer 01/07/2018 History of osteomyelitis 01/07/2018 Seasonal allergic rhinitis 09/30/2016 Recurrent major depressive disorder, in full rem ission 09/30/2016 History of stroke 09/30/2016 S/P carotid endarterectomy 09/17/2016 Type 2 diabetes mellitus wit h stage 3b chronic kidney disease, with long-term current use of insulin 06/29/2015 Overview (06/29/2015): A1C: 6.1 (07/14); 7.5 (05/15); 8.4 (12/12); 9.6 (07/12); 7.7 (11/10); 7.7 (08/11); 9.3 (03/12); 7.8 (12/10); 7.0 (02/08) Microalbumin: 08/13 (positive); 07/12 (positive); 11/10; 12/10 (Normal) Retinal exam: 04/13 (no retinopathy, Dr. Diehl) Thyroid nodule 08/22/2014 Spastic hemiplegia of right dominant side as late effect of cerebral infarction 01/26/2014 Peripheral neuropathy 12/20/2013 Diabetic gastroparesis 05/04/2013 Mixed hyperlipidemia 05/04/2013 Charcot foot due to diabetes mellitus 02/07/2013 H/O VTE (venous thromboembolism) 12/28/2012 Carotid artery stenosis 11/14/2012 Iron deficiency anemia 10/06/2012 Overview (01/30/2017): updated due to IMO load import Diverticulosis 08/01/2012 Reflux esophagitis 08/02/2011 Overview (08/02/2011): EGD: 07/13 Peripheral autonomic neuropathy due to diabetes mellitus 07/04/2009 Chronic back pain 12/17/2008 PUD (peptic ulcer disease) 02/24/2008 Overview (08/02/2011): EGD: 07/13 H Pylori: Neg (05/15) Kidney Stones, Recurrent 02/24/2008 HTN (hypertension), benign 02/24/2008 Degeneration of lumbar or lumbosacral interverte bral disc 02/24/2008 Overview (04/04/2009): S/P L4 Laminectomy, L4-L5 Arthrodesis/Spinal Fusion (Dr. Tello) MRI (03/12): Multilevel deg disease. Probable L2 nerve root impingement. Bulging disc at L3-4 results in canal and foraminal stenosis. MRI (08/09): Multilevel disc bulge through lumbar region. Varying degrees of canal narrowing or stenosis. Resolved Problems Problem Noted Date Diagnosed Date Resolved Date Chronic renal insufficiency, stage III (moderate) 12/01/2018 02/04/2019 CKD (chronic kidney disease) stage 3, GFR 30-59 ml/min 02/15/2016 01/07/2018 Diabetic neuropathy associat ed with type 2 diabetes mellitus 01/15/2016 01/07/2018 Chronic diastolic congestive heart failure 08/21/2015 02/04/2019 Diabetic ulcer of right foot associated with type 2 diabetes mellitus 12/29/2012 01/07/2018 Subacute osteomyelitis of right foot 12/28/2012 01/07/2018 Warfarin-induced coagulopathy 12/28/2012 07/20/2013 Diabetes mellitus 12/28/2012 11/10/2013 GI bleed 11/29/2012 05/04/2013 Acute upper GI bleed 11/27/2012 014 CVA (cerebral infarction) 11/14/2012 Overview (11/14/2012): Left lacunar stroke Upper extremity weakness 11/11/2012 Chronic anticoagulation 09/23/201207/02 Overview (09/23/2012): On Coumadin for DVT Right leg DVT, 09/1309/14/2012 07/21/19 14 Tachycardia, unspecified 06/22/2012 Iron deficiency anemia, uncertain etiology 06/03/2011 09/30/2016 Overview (10/29/2012): Hgb: 10.8 (10/14); 9.8 (07/14); 6.6 (07/14); 10.7 (05/15, MCV 82); 10.2 (11/11, MCV 80); 11.0 (02/08) Ferritin: 151 (07/14); 3.5 (3); 11 (06/15) Iron: 34 (2/) Received pRBCs/IV Iron: 07/14 Negative GI workup: 07/14 B12: WNL (02/08) Colon cancer screening 12/06/201009/30 Overview (08/02/2011): Colonoscopy: 07/13 (no polyps, diverticulosis; Dr. Lau) Diverticulitis of colon (wit hout mention of hemorrhage)(562.11) 11/28/2010 09/30/2016 Dyslipidemia 11/24/2009 09/30/2016 Overview (07/08/2012): T (07/14); 336 (3); 448 (11/10) HDL: 58 (3/); 43 (3/); 47 (11/10) LDL: 73 (07/14); 117 (3); 123 (11/10) Breast CA Screening 02/24/2008 10/01/19 17 Overview (01/16/2011): Mammo: 01/12; 09/10; 02/07 Immunizations Immunization Administration Dates Next Due (PNEUMOVAX 23)(50 YRS UP) PN EUMOCOCCAL POLYSACCHARIDE (PPV23) 0.5 ML, IM 01/16/2020,04/06/2008 (SPIKEVAX) (12 YRS UP PRIMAR Y SERIES) COVID-19 VACCINE - MRNA-1273(PF) 100 MCG/0.5 ML IM SUSP 07/16/2020,06/18/2020 (TDVAX)(7 YRS UP) TETANUS AN D DIPHTHERIA TOXOIDS, ADSORBED (2 LF OF TETANUS TOXOID AND 2 LF OF DIPHTHERIA TOXOID), 0.5ML (PF), IM 02/16/2007 INFLUENZA VACCINE HIGH DOSE QUADRIVALENT 65 YR UP PF IM 02/24/2020 INFLUENZA VACCINE QUADRIVALE NT 3 YR UP PF IM 01/07/2018,02/28/2014 Influenza Seasonal Unspecifi ed Formulation IM 01/07/2018,02/02/2016,02/28/2014,02/18,02/01/2011,02/15/2009,02/29/2008 Influenza Vaccine High Dose 65+ Yrs IM 9,02/05/2017,02/02/2016 Influenza Vaccine Split 3+ Yrs PF IM 02/25/2013 Influenza Vaccine Tri Split 4+ Im 2017,02/02/2016,02/01/2011,02/15 Family History Medical History Relation Name Comments Diabetes Brother 1 Heart Disease Brother 1 Hypertension Brother 1 Kidney Disease Brother 1 kidney transp lant Stroke Father Unknown Father Depression Mother Diabetes Mother Hypertension Mother Kidney Disease Mother renal failure Stroke Mother Kidney Disease Other SELF Cancer Paternal Grandfather Breast Cancer Sister Kidney Disease Sister kidney donor Ovarian Cancer Neg Hx Relation Name Status Comments Brother 1 Alive Brother 2 Alive Father (Age 81) Maternal Grandfather Maternal Grandmother Mother (Age 79) Suicide Other SELF Alive Paternal Grandfather Paternal Grandmother Sister Alive Social History Tobacco Use Types Packs/Day Years Used Date Smoking Tobacco: Never Smokeless Tobacco: Never Alcohol Use Standard Drinks/Week Comments Yes 1.7 (1 standard drink = 0.6 oz p ure alcohol) yearly Comments No Sex and Gender Information Value Date Recorded Sex Assigned at Not on file Legal Sex Female 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 Gender Identity Not on file Sexual Orientation Not on file Occupation Industry Job Start Date Job End Date Not on file Not on file Not on file Not on file Not on file Not on file Not on file Not on file Last Filed Vital Signs Vital Sign Reading Time Taken Comments Blood Pressure 142/64 09/28/2020 1:37 PM CDT Pulse 62 09/28/2020 1:37 PM CDT Temperature 36.4 C (97.5 F) 08/24/2020 3:12 PM CDT Respiratory Rate 20 08/24/2020 3:12 PM CDT Oxygen Saturation 98% 08/24/2020 3:12 PM CDT Inhaled Oxygen Concentration - - Weight 91.6 kg (202 lb) 09/18/2020 9:08 AM CDT Height 180.3 cm (5' 11 ) 09/18/2020 9:08 AM CDT Body Mass Index 28.17 09/18/2020 9:08 AM CDT Plan of Treatment Health Maintenance Due Date Last Done Comments ZOSTER VACCINE (1 of 2) 12/14/1997 DTAP/TDAP/TD VACCINES (1 - Tdap) 02/17/2007 02/17/20 07 Traditional Medicare (ACO) A nnual Wellness Visit 01/08/2019 01/07/2018, 10/29/2016, 02/28/2014 LDL CHOLESTEROL ANNUAL 02/05/2020 9, 01/13/2018, 11/11/2016, Additional history exists PNEUMOCOCCAL VACCINE 50+ YEA RS (2 of 2 - PCV) 01/15/2021 01/16/2020, 04/06/2008 DIABETES MICROALBUMIN ANNUAL SCREEN 03/08/2021 03/08/2020, 01/18/2020, 02/04/2019, Additional history exists DIABETES ANNUAL FOOT EXAM 07/03/20212020, 05/31/2019, 07/22/2018, Additional history exists OSTEOPOROSIS SCREENING 11/06/2021 11/06/2016, 2016 DIABETES HBA1C Q 6 MONTHS 02/10/20222021, 08/07/2020, 01/16/2020, Additional history exists RSV VACCINE (60+ or ) (1 - 1-dose 75+ series) 12/14/2022 DIABETES ANNUAL RETINAL EXAM 07/02/202405/2023, 06/04/2022, 12/28/2020, Additional history exists INFLUENZA VACCINE (#1) 2024 , 02/04/2019, 01/07/2018, Additional history exists COVID-19 Vaccine ( - 2024-2 6 season) 2025 07/16/2020, 06/18/2020 FIT/FOBT Q 1 year Discontinued 03/15/1999 Flex Sig/CT Colonography Q 5 years Discontinued 01/16/2016 COLORECTAL SCREENING Discontinued 01/17/2016, 01/16/2016, 11/29/2012, Additional history exists Colorectal Cancer Screening Discontinued FIT-DNA Q 3 years Discontinued Medical Devices Implanted Type Area Brand Inspector Device Identifier Shelf Expiration Date Model / Serial / Lot Patch Vascu-Guard [id number] - [id number] Implanted:Qty: 1 on 03/24/2013 by Dakotah Lyn MD at [facility] Left: Arterial [employer] 09/28/2014 [id number] / [id number] / [id number] Description:Left Carotid Art more Procedures Procedure Name Priority Date/Time Associated Diagnosis Comments HEMOGLOBIN A1C Routine 08/07/2020 11:04 AM CDT Type 2 diabetes mellitus with stage 3b chronic kidney disease, with long-term current use of insulin ([facility]) MICROALBUMIN/CREATI NINE RATIO, RANDOM UR Routine 03/08/2020 3:25 PM RESEARCH ANIMAL ATTENDANT Chronic kidney disease, stage III (moderate) ([facility]) DIABETES EYE EXAM Routine 01/24/2020 LIPID PANEL Routine 02/04/2019 12:13 PM CDT Type 2 diabetes mellitus with stage 3 chronic kidney disease, with long-term current use of insulin ([facility]) Bilateral carotid artery stenosis Mixed hyperlipidemia XR DEXA BONE DENSITY AXIAL 1 OR MORE SITES Routine 11/05/2016 1:55 PM CDT Asymptomatic menopausal state Osteoporosis screening from Last 3 Months or Most Recently Relevant to Health Maintenance Results * (ABNORMAL) HEMOGLOBIN A1C (08/07/2020 11:04 AM CDT) HEMOGLOBIN A1C 7.0(H) <=5.6 % 08/08/2020 8:09 AM CDT [facility] EST. AVG GLUCOSE, A1C 154 mg/dL 08/08/2020 8:09 AM CDT [facility] Blood Venipuncture / Unknown 08/07/2020 11:04 AM CDT 08/07/2020 11:04 AM CDT Narrative [facility] - 08/08/2020 8:09 AM CDT HGB A1C INTERPRETATION NORMAL: <5.7% PRE-DIABETES: 5.7 - 6.4% DIABETES: 6.5% OR GREATER us Daniel Mae MD CHEMISTRY ORDERABLES Saskia meyers Result [facility] CLIA # [id number] [address] [place] [id number] * (ABNORMAL) MICROALBUMIN/CREATININE RATIO, RANDOM UR (03/08/2020 3:25 PM RESEARCH ANIMAL ATTENDANT) MICROALBUMIN, URINE 3.9 No Reference Range mg/dL 03/08/2020 4:18 PM RESEARCH ANIMAL ATTENDANT [facility] CREATININE, URINE 148.2 29.0 - 226.0 mg/dL 03/08/2020 4:18 PM RESEARCH ANIMAL ATTENDANT [facility] Comment:Reference Range vari es with fluid intake and diet. MICROALBUMIN/C REAT RATIO, UR 26.3(H) <25.0 mg/g 03/08/2020 4:18 PM RESEARCH ANIMAL ATTENDANT [facility] Urine URINE SPECIMEN OBTAINED BY CLEAN CATCH PROCEDURE / Unknown Collection / Unknown 03/08/2020 3:25 PM RESEARCH ANIMAL ATTENDANT 03/08/2020 3:25 PM RESEARCH ANIMAL ATTENDANT Narrative [facility] - 03/08/2020 4:18 PM RESEARCH ANIMAL ATTENDANT Condition Microalbumin/Creat ratio Normal Males <17 Normal Females <25 Microalbuminuria Males 17-299 Microalbuminuria Females 25-299 Overt proteinuria >=300 us Salvatore Roper MD URINE ORDERABLES Final Resul t [facility] CLIA # [id number] [address] [place] [id number] * DIABETES EYE EXAM (01/24/2020) us Abstract Spg Provider HEALTH MAINTENANCE Final R esult * (ABNORMAL) LIPID PANEL (02/04/2019 12:13 PM CDT) CHOLESTEROL 157 <200 mg/dL 02/04/2019 8:45 PM CDT [facility] TRIGLYCERIDE 245(H) <150 mg/dL 02/04/2019 8:45 PM CDT [facility] HDL 37(L) 40 - 59 mg/dL 02/04/2019 8:45 PM CDT [facility] LDL CALCULATED 71 <100 mg/dL 02/04/2019 8:45 PM CDT [facility] NON-HDL CHOLESTEROL 120 <130 mg/dL 02/04/2019 8:45 PM CDT [facility] Blood Venipuncture / Unknown 02/04/2019 12:13 PM CDT 02/04/2019 7:49 PM CDT Narrative [facility] - 02/04/2019 8:45 PM CDT TOTAL CHOLESTEROL mg/dL Desirable <200 Borderline high 200-239 High >=240 TRIGLYCERIDES mg/dL Normal <150 Borderline high 150-199 High 200-499 Very high >=500 HDL CHOLESTEROL mg/dL Low <40 Normal 40-59 Desirable >=60 NON HDL CHOLESTEROL mg/dL Optimal <130 Near Optimal 130-159 Borderline High 160-189 Very High >=190 Calculated LDL mg/dL Optimal <100 Near Optimal 100-129 Borderline High 130-159 High 160-189 Very High >=190 ATPIII Guidelines Reference Ranges for Lipid Panels (NCEP/AMA) us Daniel Mae MD CHEMISTRY ORDERABLES Saskia l Result [facility] CLIA# [id number] [address] [place] [address] * XR DEXA BONE DENSITY AXIAL 1 OR MORE SITES (11/05/2016 1:55 PM CDT) Anatomical Region Laterality Modality Digital Radiogra phy 11/05/2016 1:56 PM CDT Impressions 11/06/2016 1:21 AM CDT IMPRESSION: 1. Current findings consistent with mild osteopenia; there is currently moderate risk for fracture as predicted at the femoral neck. Age matched Z-score of greater than -2.0 does not indicate accelerated bone demineralization. Definitions: T-score > -0.99 = Normal T-score -1.00 to -1.49 = mild osteopenia T-score -1.50 to -1.99 = moderate osteopenia T-score -2.00 to -2.49 = severe osteopenia T-score < -2.50 = osteoporosis N.B. Changes in density of <=0.05 g/cm2 are not statistically significant. RECOMMENDATIONS: Normal: Low risk for fracture - f/u in 2 years Mild/Mod osteopenia: Moderate risk for fracture - f/u in 1 year Severe osteopenia: Moderate/high risk for fracture - f/u in 1 year Osteoporosis: High risk for fracture - f/u in 1 year NOF guidelines recommend consideration of FDA-approved medical therapies in patients with FRAX determined 10-year probabilities of hip/major osteoporosis-related fractures equal or greater than 3%/20% respectively. Consider assessing fracture risk using the FRAX analysis tool for guidance of clinical management available online at www.shef.ac.uk/FRAX/. Enter [employer] for Select DXA and the Femoral Neck BMD value. [id number] Narrative 11/06/2016 1:21 AM CDT DEXA Evaluation of the Lumbar Spine and Left Proximal Femur Reason for Consultation: Osteoporosis screening. Evaluation of bone mineral density. The following absorptiometry data were obtained. The quality of this examination is acceptable with regards to count density, processed images, data display and lack of important artifacts (including but not limited to motion and attenuation artifacts). Serial examination number 1. L1-L2 BMD (g/cm2): 1.169 Adult T-score: 1.7 Adult Z-score: 3.6 Left Femoral Neck BMD (g/cm2): 0.740 Adult T-score: -1.0 Adult Z-score: 0.7 Left Total Hip BMD (g/cm2): 1.011 Adult T-score: 0.6 Adult Z-score: 2.0 Procedure Note Chip Doll MD - 11/06/2016 DEXA Evaluation of the Lumbar Spine and Left Proximal Femur Reason for Consultation: Osteoporosis screening. Evaluation of bone mineral density. The following absorptiometry data were obtained. The quality of this examination is acceptable with regards to count density, processed images, data display and lack of important artifacts (including but not limited to motion and attenuation artifacts). Serial examination number 1. L1-L2 BMD (g/cm2): 1.169 Adult T-score: 1.7 Adult Z-score: 3.6 Left Femoral Neck BMD (g/cm2): 0.740 Adult T-score: -1.0 Adult Z-score: 0.7 Left Total Hip BMD (g/cm2): 1.011 Adult T-score: 0.6 Adult Z-score: 2.0 IMPRESSION IMPRESSION: 1. Current findings consistent with mild osteopenia; there is currently moderate risk for fracture as predicted at the femoral neck. Age matched Z-score of greater than -2.0 does not indicate accelerated bone demineralization. Definitions: T-score > -0.99 = Normal T-score -1.00 to -1.49 = mild osteopenia T-score -1.50 to -1.99 = moderate osteopenia T-score -2.00 to -2.49 = severe osteopenia T-score < -2.50 = osteoporosis N.B. Changes in density of <=0.05 g/cm2 are not statistically significant. RECOMMENDATIONS: Normal: Low risk for fracture - f/u in 2 years Mild/Mod osteopenia: Moderate risk for fracture - f/u in 1 year Severe osteopenia: Moderate/high risk for fracture - f/u in 1 year Osteoporosis: High risk for fracture - f/u in 1 year NOF guidelines recommend consideration of FDA-approved medical therapies in patients with FRAX determined 10-year probabilities of hip/major osteoporosis-related fractures equal or greater than 3%/20% respectively. Consider assessing fracture risk using the FRAX analysis tool for guidance of clinical management available online at www.shef.ac.uk/FRAX/. Enter [employer] for Select DXA and the Femoral Neck BMD value. 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 Advance Directive POA 09/13/2018 2:34 PM Advance Directive Living Will 09/13/2018 2:34 PM * Full Code (Latest Code Status on File) Date Activated Date Inactivated Comments 09/14/2013 1:47 PM 09/14/2013 8:18 PM * Full Code Date Activated Date Inactivated Comments 03/24/2013 11:01 AM 03/25/2013 2:15 PM * Full Code Date Activated Date Inactivated Comments 03/21/2013 1:46 PM 03/24/2013 11:01 AM * Full Code Date Activated Date Inactivated Comments 03/21/2013 12:26 PM 03/21/2013 1:46 PM * Full Code Date Activated Date Inactivated Comments 12/28/2012 9:42 PM 01/01/2013 4:18 PM Care Teams [employer] Safety Program Coordinator Relationship Specialty Start Date End Date Daniel Mae MD [address] [address] [address] PCP - General Family Practice 12/17/15
--- OUTSIDE RECORDS SUMMARY | 2025-01-12 22:49 | XMS_ITS | Encounter Summary ---
Author Organization [facility] Address [address] [place] [address] Care Team Providers Care Political Scientist Name Role Phone Daniel Mae MD Primary Care Provider [phone] [phone] Encounter Details Date Type Department Care Team (Latest Contact Info) Description 09/13/2002 Outpatient [facility] [address] [place] [address] Syd Avilez DO NO ADDRESS ON FILE SYNCOPE AND COLLAPSE (Primary Dx); ACUTE STRESS REACT NOS; CHEST PAIN NOS Social History Tobacco Use Types Packs/Day Years Used Date Smoking Tobacco: Never Assessed Comments Unknown Sex and Gender Information Value Date Recorded Sex Assigned at Not on file Legal Sex Female 4:24 AM BLACK TOP PAVER OPERATOR Gender Identity Not on file Sexual Orientation Not on file documented as of this encounter Plan of Treatment Not on file documented as of this encounter Visit Diagnoses Diagnosis Syncope and collapse- Primary Unspecified acute reaction to stress Chest pain, unspecified documented in this encounter Additional Health Concerns Infection Onset Date Last Indicated Resolved Time R/O COVID-19 05/03/2020 05/03/2020 05/03/2020 5:06 AM BLACK TOP PAVER OPERATOR documented as of this encounter Care Teams Political Scientist Relationship Specialty Start Date End Date Daniel Mae MD [address] [facility] [address] [place] [address] PCP - General Family Practice 12/17/15 documented as of this encounter
--- OUTSIDE RECORDS SUMMARY | 2025-01-12 22:49 | XMS_ITS | Encounter Summary ---
Author Organization [facility] Address [address] [address] Phone Care Team Providers Care Assembler Wet Wash Name Role Phone Daniel Mae MD Primary Care Provider [phone] Reason for Visit * Reason Comments Med Refill Encounter Details Date Type Department Care Team ([facility] Contact Info) Description 07/19/2024 Refill [facility] [address] [address] Bernarda Talamantes NP [address] [facility] [address] [place] [address] Persistent proteinuria Social History Tobacco [...] Upcoming Encounters Date Type Department Care Team ([facility] Contact Info) Description 02/20/2025 2:30 PM CDT Office Visit [facility] [address] [place] [address] Bernarda Talamantes NP [address] [facility] [address] [place] [address] documented as of this encounter Visit Diagnoses Diagnosis Persistent proteinuria documented in this encounter Care Teams Assembler Wet Wash Relationship Specialty Start Date End Date Daniel Mae MD [address] [address] PCP - General Family Medicine 09/22/18 documented as of this encounter
--- OUTSIDE RECORDS SUMMARY | 2025-01-12 22:49 | XMS_ITS | Encounter Summary ---
Author Organization [facility] Address [address] [place] [address] Care Team Providers Care Extrusion Utility Worker Name Role Phone Daniel Mae MD Primary Care Provider [phone] Encounter Details Date Type Department Care Team (Latest Contact Info) Description 01/28/[address] [address] Ines Snow MD NO ADDRESS ON FILE Urinary tract infection, site not specified (Primary Dx); Other specified types of cystitis(595.89) Social History Tobacco Use Types Packs/Day Years Used Date Smoking Tobacco: Never Assessed Comments Unknown Sex and Gender Information Value Date Recorded Sex Assigned at Not on file Legal Sex Female 4:24 AM ENTRY TECH Gender Identity Not on file Sexual Orientation Not on file documented as of this encounter Plan of Treatment Not on file documented as of this encounter Visit Diagnoses Diagnosis Urinary tract infection, site not specified- Primary Other specified types of cystitis(595.89) Other specified types of cystitis documented in this encounter Additional Health Concerns Infection Onset Date Last Indicated Resolved Time R/O COVID-19 05/03/2020 05/03/2020 05/03/2020 5:06 AM ENTRY TECH documented as of this encounter Care Teams Extrusion Utility Worker Relationship Specialty Start Date End Date Daniel Mae MD [address] [phone] PCP - General Family Practice 12/17/15 documented as of this encounter
--- OUTSIDE RECORDS SUMMARY | 2025-01-12 22:49 | XMS_ITS | Encounter Summary ---
Author Organization [facility] Address [address] [place] [address] Care Team Providers Care Chief Deputy Coroner Name Role Phone Daniel Mae MD Primary Care Provider [phone] Encounter Details Date Type Department Care Team (Latest Contact Info) Description 01/20/2007 Outpatient Historical [facility] [place] [address] [address] Loly Cano, OIL DISPATCHER [address] [place] [address] DM w/o Complication Type II (CMS/HCC) (Primary Dx); Breast Screening, Unspecified Social History Tobacco Use Types Packs/Day Years Used Date Smoking Tobacco: Never Assessed Comments Unknown Sex and Gender Information Value Date Recorded Sex Assigned at Not on file Legal Sex Female 4:24 AM PIER MASTER Gender Identity Not on file Sexual Orientation Not on file documented as of this encounter Plan of Treatment Not on file documented as of this encounter Visit Diagnoses Diagnosis Type II or unspecified type diabetes mellitus without mention of complication, not stated as uncontrolled- Primary Breast screening, unspecified documented in this encounter Additional Health Concerns Infection Onset Date Last Indicated Resolved Time R/O COVID-19 05/03/2020 05/03/2020 05/03/2020 5:06 AM PIER MASTER documented as of this encounter Care Teams Chief Deputy Coroner Relationship Specialty Start Date End Date Daniel Mae MD [address] [address] PCP - General Family Practice 12/17/15 documented as of this encounter
--- OUTSIDE RECORDS SUMMARY | 2025-01-12 22:49 | XMS_ITS | Encounter Summary ---
Author Organization [facility] Address [address] [place] [address] Care Team Providers Care Housekeeper Manager Name Role Phone Daniel Mae MD Primary Care Provider [phone] Encounter Details Date Type Department Care Team (Late st Contact Info) Description 07/12/2012 Ancillary Orders [facility] Cardiology- [place] [address] [place] [address] Ramón Reyez MD NO ADDRESS ON FILE Tachycardia (Primary Dx); Essential hypertension, benign; Diabetes mellitus (CMS/HCC) Social History Tobacco Use Types Packs/Day Years Used Date Smoking Tobacco: Never Smokeless Tobacco: Never Alcohol Use Standard Drinks/Week Comments Yes 1.7 (1 standard drink = 0.6 oz p ure alcohol) yearly Comments No Sex and Gender Information Value Date Recorded Sex Assigned at Not on file Legal Sex Female 4:24 AM ELECTRONICS RESEARCH ENGINEER Gender Identity Not on file Sexual Orientation Not on file documented as of this encounter Plan of Treatment Not on file documented as of this encounter Visit Diagnoses Diagnosis Tachycardia- Primary Tachycardia, unspecified Essential hypertension, benign Diabetes mellitus (CMS/HCC) Type II or unspecified type diabetes mellitus without mention of complication, not stated as uncontrolled documented in this encounter Additional Health Concerns Infection Onset Date Last Indicated Resolved Time R/O COVID-19 05/03/2020 05/03/2020 05/03/2020 5:06 AM ELECTRONICS RESEARCH ENGINEER documented as of this encounter Care Teams Housekeeper Manager Relationship Specialty Start Date End Date Daneil Mae MD [address] [address] PCP - General Family Practice 12/17/15 documented as of this encounter
--- OUTSIDE RECORDS SUMMARY | 2025-01-12 22:49 | XMS_ITS | Encounter Summary ---
Author Organization [facility] Address [address] [place] [address] Care Team Providers Care Aquarium Tank Attendant Name Role Phone Daniel Mae MD Primary Care Provider [phone] Encounter Details Date Type Department Care Team (Latest Contact Info) Description 04/05/2007 Outpatient [facility] Medicine [address] [address] Deshawn Alejandra MD NO ADDRESS ON FILE Unspecified Disorders of Bursae and Tendons in Shoulder Region (Primary Dx) Social History Tobacco Use Types Packs/Day Years Used Date Smoking Tobacco: Never Assessed Comments Unknown Sex and Gender Information Value Date Recorded Sex Assigned at Not on file Legal Sex Female 4:24 AM AUTOMATIC TYPEWRITER INSPECTOR Gender Identity Not on file Sexual Orientation Not on file documented as of this encounter Plan of Treatment Not on file documented as of this encounter Visit Diagnoses Diagnosis Disorders of bursae and tendons in shoulder region, unspecified- Primary documented in this encounter Additional Health Concerns Infection Onset Date Last Indicated Resolved Time R/O COVID-19 05/03/2020 05/03/2020 05/03/2020 5:06 AM AUTOMATIC TYPEWRITER INSPECTOR documented as of this encounter Care Teams Aquarium Tank Attendant Relationship Specialty Start Date End Date Daniel Mae MD [address] [address] PCP - General Family Practice 12/17/15 documented as of this encounter
--- OUTSIDE RECORDS SUMMARY | 2025-01-12 22:50 | XMS_ITS | Encounter Summary ---
Author Organization [facility] Address [address] [place] [address] Care Team Providers Care Oil Spraying Machine Operator Name Role Phone Daniel Mae MD Primary Care Provider [phone] Reason for Referral * Outpatient Services (Routine) - Closed Specialty Diagnoses / Procedures Referred By Jamaal gamino Referred To Contact Diagnoses Screening mammogram Procedures MAMMO SCREENING BILAT Deshawn Alejandra MD NO ADDRESS ON FILE Referral ID Status Reason Start Date Expiration Date Visits Re quested Visits Authorized [id number] Closed 01/13/2011 01/13/2012 1 1 Encounter Details Date Type Department Care Team (Late st Contact Info) Description 01/13/2011 Ancillary Orders [facility] [place] [facility] External Read [address] [place] [address] Deshawn Alejandra MD NO ADDRESS ON FILE Screening mammogram Social History Tobacco Use Types Packs/Day Years Used Date Smoking Tobacco: Never Smokeless Tobacco: Never Alcohol Use Standard Drinks/Week Comments Yes 1.7 (1 standard drink = 0.6 oz p ure alcohol) yearly Comments No Sex and Gender Information Value Date Recorded Sex Assigned at Not on file Legal Sex Female 4:24 AM A AND P MECHANIC Gender Identity Not on file Sexual Orientation Not on file documented as of this encounter Plan of Treatment Not on file documented as of this encounter Results * MAMMO SCREENING BILAT (01/13/2011 2:51 PM CDT) Anatomical Region Laterality Modality Breast Bilateral Mammography Narrative 01/15/2011 3:14 PM CDT Bilateral Mammogram Reason for Exam: Screening Comparison: Comparison is made with the prior exam(s) dated 01.21.07 Findings: Bilateral CC and MLO views were obtained. This examination was reviewed with the aid of a computer-aided detection system(CAD). The breast tissue density is average. Scattered benign type nodularity. No significant new findings since the prior mammogram(s). Procedure Note Juan David Bobo MD - 01/15/2011 Bilateral Mammogram Reason for Exam: Screening Comparison: Comparison is made with the prior exam(s) dated 01.21.07 Findings: Bilateral CC and MLO views were obtained. This examination was reviewed with the aid of a computer-aided detectionsystem(CAD). The breast tissue density is average. Scattered benign type nodularity. No significant new findings since the prior mammogram(s). Deshawn Alejandra MD MAMMO ORDERABLES Final Res ult documented in this encounter Visit Diagnoses Diagnosis Screening mammogram Other screening mammogram documented in this encounter Additional Health Concerns Infection Onset Date Last Indicated Resolved Time R/O COVID-19 05/03/2020 05/03/2020 05/03/2020 5:06 AM A AND P MECHANIC documented as of this encounter Care Teams Oil Spraying Machine Operator Relationship Specialty Start Date End Date Daniel Mae MD [address] [facility] [address] [place] [address] PCP - General Family Practice 12/17/15 documented as of this encounter
--- OUTSIDE RECORDS SUMMARY | 2025-01-12 22:50 | XMS_ITS | Encounter Summary ---
Author Organization [facility] Address [address] [place] [address] Care Team Providers Care Medicaid Eligibility Specialist Name Role Phone Daniel Mae MD Primary Care Provider + [phone] Encounter Details Date Type Department Care Team (Latest Contact Info) Description 06/13/1999 Outpatient Historical [facility] Medicine [place] 104 [facility] [address] [place] [address] Torsten Jackson, DO [address] [place] [address] Nonallopathic lesion of upper extremities, not elsewhere classified (Primary Dx); Pain in joint, shoulder region Social History Tobacco Use Types Packs/Day Years Used Date Smoking Tobacco: Never Assessed Comments Unknown Sex and Gender Information Value Date Recorded Sex Assigned at Not on file Legal Sex Female 4:24 AM AGRICULTURAL CONSULTANT Gender Identity Not on file Sexual Orientation Not on file documented as of this encounter Plan of Treatment Not on file documented as of this encounter Visit Diagnoses Diagnosis Nonallopathic lesion of upper extremities, not elsewhere classified- Primary Pain in joint, shoulder region documented in this encounter Additional Health Concerns Infection Onset Date Last Indicated Resolved Time R/O COVID-19 05/03/2020 05/03/2020 05/03/2020 5:06 AM AGRICULTURAL CONSULTANT documented as of this encounter Care Teams Medicaid Eligibility Specialist Relationship Specialty Start Date End Date Daniel Mae MD [address] [address] PCP - General Family Practice 12/17/15 documented as of this encounter
--- OUTSIDE RECORDS SUMMARY | 2025-01-12 22:50 | XMS_ITS | Encounter Summary ---
Author Organization [facility] Address [address] [place] [address] Care Team Providers Care Nurse Administrator Name Role Phone Daniel Mae MD Primary Care Provider [phone] Encounter Details Date Type Department Care Team (Latest Contact Info) Description 05/07/1999 Outpatient [facility] [address] [place] [address] Syd Avilez DO NO ADDRESS ON FILE Unspecified essential hypertension (Primary Dx) Social History Tobacco Use Types Packs/Day Years Used Date Smoking Tobacco: Never Assessed Comments Unknown Sex and Gender Information Value Date Recorded Sex Assigned at Not on file Legal Sex Female 4:24 AM PLANT SECURITY GUARD Gender Identity Not on file Sexual Orientation Not on file documented as of this encounter Plan of Treatment Not on file documented as of this encounter Visit Diagnoses Diagnosis Unspecified essential hypertension- Primary documented in this encounter Additional Health Concerns Infection Onset Date Last Indicated Resolved Time R/O COVID-19 05/03/2020 05/03/2020 05/03/2020 5:06 AM PLANT SECURITY GUARD documented as of this encounter Care Teams Nurse Administrator Relationship Specialty Start Date End Date Daniel Mae MD [address] [place] [address] PCP - General Family Practice 12/17/15 documented as of this encounter
--- OUTSIDE RECORDS SUMMARY | 2025-01-12 22:50 | XMS_ITS | Encounter Summary ---
Author Organization [facility] Address [address] [place] [address] Care Team Providers Care Manager Primary Name Role Phone Daniel Mae MD Primary Care Provider [phone] [phone] Encounter Details Date Type Department Care Team (Latest Contact Info) Description 06/14/[address] [address] Syd Avilez DO NO ADDRESS ON FILE ACUTE BRONCHITIS (Primary Dx); HYPOPOTASSEMIA Social History Tobacco Use Types Packs/Day Years Used Date Smoking Tobacco: Never Assessed Comments Unknown Sex and Gender Information Value Date Recorded Sex Assigned at Not on file Legal Sex Female 4:24 AM ASSISTANT DRAFTER Gender Identity Not on file Sexual Orientation Not on file documented as of this encounter Plan of Treatment Not on file documented as of this encounter Visit Diagnoses Diagnosis Acute bronchitis- Primary Hypopotassemia documented in this encounter Additional Health Concerns Infection Onset Date Last Indicated Resolved Time R/O COVID-19 05/03/2020 05/03/2020 05/03/2020 5:06 AM ASSISTANT DRAFTER documented as of this encounter Care Teams Manager Primary Relationship Specialty Start Date End Date Daniel Mae MD [address] [address] PCP - General Family Practice 12/17/15 documented as of this encounter
--- OUTSIDE RECORDS SUMMARY | 2025-01-12 22:50 | XMS_ITS | Encounter Summary ---
Author Organization [facility] Address [address] [place] [address] Care Team Providers Care Dipping Machine Operator Name Role Phone Daniel Mae MD Primary Care Provider [phone] Encounter Details Date Type Department Care Team (Latest Contact Info) Description 04/10/1999 Outpatient [facility] [address] [address] Franco Hooks MD NO ADDRESS ON FILE Nonspecific abnormal findings on radiological or other examinations of the breast (Primary Dx) Social History Tobacco Use Types Packs/Day Years Used Date Smoking Tobacco: Never Assessed Comments Unknown Sex and Gender Information Value Date Recorded Sex Assigned at Not on file Legal Sex Female 4:24 AM MARKETING TECHNOLOGIST Gender Identity Not on file Sexual Orientation Not on file documented as of this encounter Plan of Treatment Not on file documented as of this encounter Visit Diagnoses Diagnosis Nonspecific abnormal findings on radiological or other examinations of the breast- Primary documented in this encounter Additional Health Concerns Infection Onset Date Last Indicated Resolved Time R/O COVID-19 05/03/2020 05/03/2020 05/03/2020 5:06 AM MARKETING TECHNOLOGIST documented as of this encounter Care Teams Dipping Machine Operator Relationship Specialty Start Date End Date Daniel Mae MD [address] [place] [address] PCP - General Family Practice 12/17/15 documented as of this encounter
--- OUTSIDE RECORDS SUMMARY | 2025-01-12 22:50 | XMS_ITS | Encounter Summary ---
Author Organization [facility] Address [address] [place] [address] Care Team Providers Care Foam Charger Name Role Phone Daniel Mae MD Primary Care Provider [phone] [phone] Encounter Details Date Type Department Care Team (Latest Contact Info) Description 02/04/2005 Outpatient Historical [facility]- [address] [address] Ar Lambert MD [address] [address] LOCAL SKIN INFECTION NOS (Primary Dx); DIABETES MELLITUS TYPE II-UNCOMPL (CMS/HCC) Social History Tobacco Use Types Packs/Day Years Used Date Smoking Tobacco: Never Assessed Comments Unknown Sex and Gender Information Value Date Recorded Sex Assigned at Not on file Legal Sex Female 4:24 AM PLANETARIUM TECHNICIAN Gender Identity Not on file Sexual Orientation Not on file documented as of this encounter Plan of Treatment Not on file documented as of this encounter Visit Diagnoses Diagnosis Unspecified local infection of skin and subcutaneous tissue- Primary Type II or unspecified type diabetes mellitus without mention of complication, not stated as uncontrolled documented in this encounter Additional Health Concerns Infection Onset Date Last Indicated Resolved Time R/O COVID-19 05/03/2020 05/03/2020 05/03/2020 5:06 AM PLANETARIUM TECHNICIAN documented as of this encounter Care Teams Foam Charger Relationship Specialty Start Date End Date Daniel Mae MD [address] [address] PCP - General Family Practice 12/17/15 documented as of this encounter
--- OUTSIDE RECORDS SUMMARY | 2025-01-12 22:50 | XMS_ITS | Encounter Summary ---
Author Organization [facility] Address [address] [place] [address] Care Team Providers Care Planograph Operator Name Role Phone Daniel Mae MD Primary Care Provider [phone] [phone] Encounter Details Date Type Department Care Team (Late st Contact Info) Description 06/10/2004 Outpatient Historical [facility] Syd Avilez, DO NO ADDRESS ON FILE Social History Tobacco Use Types Packs/Day Years Used Date Smoking Tobacco: Never Assessed Comments Unknown Sex and Gender Information Value Date Recorded Sex Assigned at Not on file Legal Sex Female 4:24 AM AUTO SERVICE MECHANIC Gender Identity Not on file Sexual Orientation Not on file documented as of this encounter Plan of Treatment Not on file documented as of this encounter Visit Diagnoses Not on filedocumented in this encounter Additional Health Concerns Infection Onset Date Last Indicated Resolved Time R/O COVID-19 05/03/2020 05/03/2020 05/03/2020 5:06 AM AUTO SERVICE MECHANIC documented as of this encounter Care Teams Planograph Operator Relationship Specialty Start Date End Date Daniel Mae MD [address] [place] [address] PCP - General Family Practice 12/17/15 documented as of this encounter
--- OUTSIDE RECORDS SUMMARY | 2025-01-12 22:50 | XMS_ITS | Encounter Summary ---
Author Organization [facility] Address [address] [place] [address] Care Team Providers Care Veterans Service Officer Name Role Phone Daniel Mae MD Primary Care Provider + [phone] Encounter Details Date Type Department Care Team (Latest Contact Info) Description 01/09/2000 Outpatient Historical [facility] Medicine [address] [address] Vidih Recinos NO ADDRESS ON FILE Other specified menopausal and postmenopausal disorder (Primary Dx); Unspecified essential hypertension Social History Tobacco Use Types Packs/Day Years Used Date Smoking Tobacco: Never Assessed Comments Unknown Sex and Gender Information Value Date Recorded Sex Assigned at Not on file Legal Sex Female 4:24 AM HEALTH WORKERS Gender Identity Not on file Sexual Orientation Not on file documented as of this encounter Plan of Treatment Not on file documented as of this encounter Visit Diagnoses Diagnosis Other specified menopausal and postmenopausal disorder- Primary Unspecified essential hypertension documented in this encounter Additional Health Concerns Infection Onset Date Last Indicated Resolved Time R/O COVID-19 05/03/2020 05/03/2020 05/03/2020 5:06 AM HEALTH WORKERS documented as of this encounter Care Teams Veterans Service Officer Relationship Specialty Start Date End Date Daniel Mae MD [address] [address] PCP - General Family Practice 12/17/15 documented as of this encounter
--- OUTSIDE RECORDS SUMMARY | 2025-01-12 22:50 | XMS_ITS | Encounter Summary ---
Author Organization [facility] Address [address] [place] [address] Care Team Providers Care Cement Production Plant Operator Name Role Phone Daniel Mea MD Primary Care Provider +1 [phone] Encounter Details Date Type Department Care Team (Latest Contact Info) Description 11/23/2000 Outpatient [facility] Medicine [place] 104 [facility] [address] [place] [address] Ar Lambert MD [address] [address] Unspecified essential hypertension (Primary Dx); Hypopotassemia Social History Tobacco Use Types Packs/Day Years Used Date Smoking Tobacco: Never Assessed Comments Unknown Sex and Gender Information Value Date Recorded Sex Assigned at Not on file Legal Sex Female 4:24 AM SOLIDWORKS DESIGNER Gender Identity Not on file Sexual Orientation Not on file documented as of this encounter Plan of Treatment Not on file documented as of this encounter Visit Diagnoses Diagnosis Unspecified essential hypertension- Primary Hypopotassemia documented in this encounter Additional Health Concerns Infection Onset Date Last Indicated Resolved Time R/O COVID-19 05/03/2020 05/03/2020 05/03/2020 5:06 AM SOLIDWORKS DESIGNER documented as of this encounter Care Teams Cement Production Plant Operator Relationship Specialty Start Date End Date Daniel Mae MD [address] [address] PCP - General Family Practice 12/17/15 documented as of this encounter
--- OUTSIDE RECORDS SUMMARY | 2025-01-12 22:50 | XMS_ITS | Encounter Summary ---
Author Organization [facility] Address [address] [place] [address] Care Team Providers Care Chief Counsel Name Role Phone Daniel Mae MD Primary Care Provider +1 [phone] Encounter Details Date Type Department Care Team (Latest Contact Info) Description 10/06/2002 Outpatient Historical [facility] General Surgery [address] [address] [address] [place] [address] [place] [address] [facility] [address] [place] [address] SURGERY FOLLOWUP, UNSPEC (Primary Dx) Social History Tobacco Use Types Packs/Day Years Used Date Smoking Tobacco: Never Assessed Comments Unknown Sex and Gender Information Value Date Recorded Sex Assigned at Not on file Legal Sex Female 4:24 AM USER INTERFACE DESIGNER Gender Identity Not on file Sexual Orientation Not on file documented as of this encounter Plan of Treatment Not on file documented as of this encounter Visit Diagnoses Diagnosis Follow-up examination, following unspecified surgery- Primary documented in this encounter Additional Health Concerns Infection Onset Date Last Indicated Resolved Time R/O COVID-19 05/03/2020 05/03/2020 05/03/2020 5:06 AM USER INTERFACE DESIGNER documented as of this encounter Care Teams Chief Counsel Relationship Specialty Start Date End Date Daniel Mae MD [address] [phone] PCP - General Family Practice 12/17/15 documented as of this encounter
--- OUTSIDE RECORDS SUMMARY | 2025-01-12 22:50 | XMS_ITS | Encounter Summary ---
Author Organization [facility] Address [address] [place] [address] Care Team Providers Care Press Department Manager Name Role Phone Daniel Mae MD Primary Care Provider +1 [phone] Encounter Details Date Type Department Care Team (Latest Contact Info) Description 09/27/[address] [address] Dylon Miguel PA NO ADDRESS ON FILE DIABETES MELLITUS TYPE II-UNCOMPL (CMS/HCC) (Primary Dx); CHEST PAIN NOS; HYPERTENSION NOS Social History Tobacco Use Types Packs/Day Years Used Date Smoking Tobacco: Never Assessed Comments Unknown Sex and Gender Information Value Date Recorded Sex Assigned at Not on file Legal Sex Female 4:24 AM WET INSPECTOR OPTICAL GLASS Gender Identity Not on file Sexual Orientation Not on file documented as of this encounter Plan of Treatment Not on file documented as of this encounter Visit Diagnoses Diagnosis Type II or unspecified type diabetes mellitus without mention of complication, not stated as uncontrolled- Primary Chest pain, unspecified Unspecified essential hypertension documented in this encounter Additional Health Concerns Infection Onset Date Last Indicated Resolved Time R/O COVID-19 05/03/2020 05/03/2020 05/03/2020 5:06 AM WET INSPECTOR OPTICAL GLASS documented as of this encounter Care Teams Press Department Manager Relationship Specialty Start Date End Date Daniel Mae MD [address] [phone] PCP - General Family Practice 12/17/15 documented as of this encounter
--- OUTSIDE RECORDS SUMMARY | 2025-01-12 22:50 | XMS_ITS | Encounter Summary ---
Author Organization [facility] Address [address] [place] [address] Care Team Providers Care Brick Shader Name Role Phone Daniel Mae MD Primary Care Provider [phone] Encounter Details Date Type Department Care Team (Latest Contact Info) Description 10/24/1999 Outpatient Historical [facility] [address] [address] Franco Hooks MD NO ADDRESS ON FILE Other sign and symptom in breast (Primary Dx) Social History Tobacco Use Types Packs/Day Years Used Date Smoking Tobacco: Never Assessed Comments Unknown Sex and Gender Information Value Date Recorded Sex Assigned at Not on file Legal Sex Female 4:24 AM STORE RECEIVING CLERK Gender Identity Not on file Sexual Orientation Not on file documented as of this encounter Plan of Treatment Not on file documented as of this encounter Visit Diagnoses Diagnosis Other sign and symptom in breast- Primary documented in this encounter Additional Health Concerns Infection Onset Date Last Indicated Resolved Time R/O COVID-19 05/03/2020 05/03/2020 05/03/2020 5:06 AM STORE RECEIVING CLERK documented as of this encounter Care Teams Brick Shader Relationship Specialty Start Date End Date Daniel Mae MD [address] [place] [phone] PCP - General Family Practice 12/17/15 documented as of this encounter
--- OUTSIDE RECORDS SUMMARY | 2025-01-12 22:50 | XMS_ITS | Encounter Summary ---
Author Organization [facility] Address [address] [place] [address] Care Team Providers Care Currency Exchange Specialist Name Role Phone Daniel Mae MD Primary Care Provider [phone] Encounter Details Date Type Department Care Team (Latest Contact Info) Description 11/08/2003 Outpatient Historical [address] [address] Dylon Miguel PA NO ADDRESS ON FILE PERIPH VASCULAR DIS NOS (Primary Dx); SCIATICA; HYPOPOTASSEMIA Social History Tobacco Use Types Packs/Day Years Used Date Smoking Tobacco: Never Assessed Comments Unknown Sex and Gender Information Value Date Recorded Sex Assigned at Not on file Legal Sex Female 4:24 AM HANGING FLAGS DECORATOR Gender Identity Not on file Sexual Orientation Not on file documented as of this encounter Plan of Treatment Not on file documented as of this encounter Visit Diagnoses Diagnosis Peripheral vascular disease, unspecified- Primary Sciatica Hypopotassemia documented in this encounter Additional Health Concerns Infection Onset Date Last Indicated Resolved Time R/O COVID-19 05/03/2020 05/03/2020 05/03/2020 5:06 AM HANGING FLAGS DECORATOR documented as of this encounter Care Teams Currency Exchange Specialist Relationship Specialty Start Date End Date Daniel Mae MD [address] [address] PCP - General Family Practice 12/17/15 documented as of this encounter
--- OUTSIDE RECORDS SUMMARY | 2025-01-12 22:50 | XMS_ITS | Encounter Summary ---
Author Organization [facility] Address [address] [place] [address] Care Team Providers Care Stationary Engineer Refrigeration Name Role Phone Daniel Mae MD Primary Care Provider [phone] [phone] Encounter Details Date Type Department Care Team (Latest Contact Info) Description 09/16/2004 Outpatient [facility]- [address] [phone] Dylon Miguel PA NO ADDRESS ON FILE CHEST PAIN NOS (Primary Dx) Social History Tobacco Use Types Packs/Day Years Used Date Smoking Tobacco: Never Assessed Comments Unknown Sex and Gender Information Value Date Recorded Sex Assigned at Not on file Legal Sex Female 4:24 AM DRILLING FIELD OPERATOR Gender Identity Not on file Sexual Orientation Not on file documented as of this encounter Plan of Treatment Not on file documented as of this encounter Visit Diagnoses Diagnosis Chest pain, unspecified- Primary documented in this encounter Additional Health Concerns Infection Onset Date Last Indicated Resolved Time R/O COVID-19 05/03/2020 05/03/2020 05/03/2020 5:06 AM DRILLING FIELD OPERATOR documented as of this encounter Care Teams Stationary Engineer Refrigeration Relationship Specialty Start Date End Date Daniel Mae MD [address] [facility] [address] [place] [phone] PCP - General Family Practice 12/17/15 documented as of this encounter
--- OUTSIDE RECORDS SUMMARY | 2025-01-12 22:50 | XMS_ITS | Encounter Summary ---
Author Organization [facility] Address [address] [place] [address] Care Team Providers Care Neurology Professor Name Role Phone Daniel Mae MD Primary Care Provider [phone] Encounter Details Date Type Department Care Team (Late st Contact Info) Description 06/10/2004 Outpatient Historical [facility]- [address] [phone] Social History Tobacco Use Types Packs/Day Years Used Date Smoking Tobacco: Never Assessed Comments Unknown Sex and Gender Information Value Date Recorded Sex Assigned at Not on file Legal Sex Female 4:24 AM DRAFTER SEISMOGRAPH Gender Identity Not on file Sexual Orientation Not on file documented as of this encounter Plan of Treatment Not on file documented as of this encounter Visit Diagnoses Not on filedocumented in this encounter Additional Health Concerns Infection Onset Date Last Indicated Resolved Time R/O COVID-19 05/03/2020 05/03/2020 05/03/2020 5:06 AM DRAFTER SEISMOGRAPH documented as of this encounter Care Teams Neurology Professor Relationship Specialty Start Date End Date Daniel Mae MD [address] [facility] [address] [place] [phone] PCP - General Family Practice 12/17/15 documented as of this encounter
--- OUTSIDE RECORDS SUMMARY | 2025-01-12 22:50 | XMS_ITS | Encounter Summary ---
Author Organization [facility] Address [address] [place] [address] Care Team Providers Care Nut Packer Name Role Phone Daniel Mae MD Primary Care Provider [phone] [phone] Encounter Details Date Type Department Care Team (Latest Contact Info) Description 09/19/2004 Outpatient Historical [facility] Cardiac Mixed Crop And Livestock Farmer [address] [place] [address] Kyaw Coley MD NO ADDRESS ON FILE ANGINA PECTORIS NEC/NOS (Primary Dx) Social History Tobacco Use Types Packs/Day Years Used Date Smoking Tobacco: Never Assessed Comments Unknown Sex and Gender Information Value Date Recorded Sex Assigned at Not on file Legal Sex Female 4:24 AM ADULT LITERACY INSTRUCTOR Gender Identity Not on file Sexual Orientation Not on file documented as of this encounter Plan of Treatment Not on file documented as of this encounter Procedures Procedure Name Priority Date/Time Associated Diagnosis Comments POC GLUCOSE Routine 09/19/2004 12:38 PM CDT POC GLUCOSE Routine 09/19/2004 9:48 AM CDT PT AND APTT Routine 09/19/2004 8:22 AM CDT CBC WITHOUT DIFFERENTIAL Routine 09/19/2004 8:22 AM CDT HEPATIC FUNCTION PANEL Routine 09/19/2004 8:22 AM CDT LIPID PANEL Routine 09/19/2004 8:22 AM CDT BASIC METABOLIC PANEL Routine 09/19/2004 8:22 AM CDT documented in this encounter Results * (ABNORMAL) POC GLUCOSE (09/19/2004 12:38 PM CDT) GLUCOSE POC 170(H) 60 - 100 mg/dL INTERFACE SYSTEM 09/19/2004 12:3 8 PM CDT us Kyaw Coley MD POINT OF CARE TESTING Final Result Performing Organization Address City/[facility] Co de Phone Number INTERFACE SYSTEM Refer to clinic/hospital department * (ABNORMAL) POC GLUCOSE (09/19/2004 9:48 AM CDT) GLUCOSE POC 311(H) 60 - 100 mg/dL INTERFACE SYSTEM 09/19/2004 9:48 AM CDT us Kyaw Coley MD POINT OF CARE TESTING Final Result Performing Organization Address City/State/[facility] Co de Phone Number INTERFACE SYSTEM Refer to clinic/hospital department * (ABNORMAL) HEPATIC FUNCTION PANEL (09/19/2004 8:22 AM CDT) ALKALINE PHOSPHATASE 138(H) 38 - 126 IU/L INTERFACE SYSTEM TOTAL PROTEIN 8.8(H) 6.3 - 8.2 g/dL INTERFACE SYSTEM ALBUMIN 4.3 3.5 - 5.0 g/dL INTERFACE SYSTEM AST 57(H) 14 - 36 IU/L INTERFACE SYSTEM ALT 55(H) 9 - 52 IU/L INTERFACE SYSTEM BILIRUBIN TOTAL 0.5 0.2 - 1.4 mg/dL INTERFACE SYSTEM BILIRUBIN DIRECT 0.0 0.0 - 0.4 mg/dL INTERFACE SYSTEM 09/19/2004 8:22 AM CDT us Kyaw Coley MD CHEMISTRY ORDERABLES Final Result Performing Organization Address [facility] Phone Number INTERFACE SYSTEM Refer to clinic/hospital department * (ABNORMAL) LIPID PANEL (09/19/2004 8:22 AM CDT) CHOLESTEROL 165 75 - 200 mg/dL INTERFACE SYSTEM TRIGLYCERIDE 230(H) 0 - 200 mg/dL INTERFACE SYSTEM CALCULATED TOTAL CHOLESTEROL TO HDL RATIO 4.13 3.27 - 4.44 INTERFACE SYSTEM HDL 40 40 - 60 mg/dL INTERFACE SYSTEM LDL CALCULATED 79 0 - 130 mg/dL INTERFACE SYSTEM 09/19/2004 8:22 AM CDT us Kyaw Coley MD CHEMISTRY ORDERABLES Final Result Performing Organization Address [facility] Phone Number INTERFACE SYSTEM Refer to clinic/hospital department * PT AND APTT (09/19/2004 8:22 AM CDT) PROTIME 13.3 12.4 - 14.9 Secs INTERFACE SYSTEM Comment: As of 03 note change in normal range. INR 1.0 INTERFACE SYSTEM Comment: Expected Values for INR: DVT/PE Goal INR 2.5; range 2.0 - 3.0 Valve Replacement Tissue Goal INR 2.5; range 2.0 - 3.0 Mechanical Goal INR 3.0; range 2.5 - 3.5 POST-MS Goal INR 2.5; range 2.0 - 3.0 or Goal 3.0; range 2.5 - 3.5 Atrial Fibrillation Goal INR 2.5; range 2.0 - 3.0 Ischemic Stroke Goal INR 2.5; range 2.0 - 3.0 For additional information see Guidelines for Anticoagulation available from the pharmacy Yad[facility] Sabillon. PTT 27.3 24.3 - 37.5 Secs INTERFACE SYSTEM Comment:Therapeutic Range: 09/19/2004 8:22 AM CDT Result Yun Coley MD HEMATOLOGY ORDERABLES Final Result Performing Organization Address [facility] Phone Number INTERFACE SYSTEM Refer to clinic/hospital department * (ABNORMAL) CBC WITHOUT DIFFERENTIAL (09/19/2004 8:22 AM CDT) WBC 12.4(H) 4.8 - 10.8 K/ul INTERFACE SYSTEM RBC 4.82 4.20 - 5.40 Mil/ul INTERFACE SYSTEM HEMOGLOBIN 13.7 12.0 - 16.0 g/dL INTERFACE SYSTEM HEMATOCRIT 41.9 36.0 - 46.0 % INTERFACE SYSTEM MCV 86.9 84.0 - 103.0 Fl INTERFACE SYSTEM MCH 28.4 27.0 - 34.0 pg INTERFACE SYSTEM MCHC 32.7 30.0 - 35.0 g/dL INTERFACE SYSTEM RDW 14.3 11.0 - 14.5 % INTERFACE SYSTEM PLATELETS 301 140 - 440 K/ul INTERFACE SYSTEM MPV 12.1 8.9 - 12.8 Fl INTERFACE SYSTEM NEUTROPHILS 74.6 42.2 - 75.2 % INTERFACE SYSTEM LYMPHOCYTES 17.5(L) 24.0 - 44.0 % INTERFACE SYSTEM MONOCYTES 5.4 2.0 - 10.0 % INTERFACE SYSTEM EOSINOPHILS 2.2 0.0 - 7.0 % INTERFACE SYSTEM BASOPHILS 0.3 0.0 - 1.0 % INTERFACE SYSTEM NEUTROPHIL ABSOLUTE 9.2(H) 2.0 - 8.0 K/uL INTERFACE SYSTEM LYMPHOCYTE ABSOLUTE 2.2 1.2 - 4.0 K/ul INTERFACE SYSTEM MONOCYTE ABSOLUTE 0.7(H) 0.1 - 0.6 K/ul INTERFACE SYSTEM EOSINOPHIL ABSOLUTE 0.3 0.0 - 0.7 K/ul INTERFACE SYSTEM BASOPHILS ABSOLUTE 0.0 0.0 - 0.2 K/ul INTERFACE SYSTEM 09/19/2004 8:22 AM CDT us Kyaw Coley MD HEMATOLOGY ORDERABLES Final Result INTERFACE SYSTEM Refer to clinic/hospital department * (ABNORMAL) BASIC METABOLIC PANEL (09/19/2004 8:22 AM CDT) GLUCOSE 304(H) 70 - 110 mg/dL INTERFACE SYSTEM BUN 18(H) 7 - 17 mg/dL INTERFACE SYSTEM CREATININE 0.7 0.7 - 1.2 mg/dL INTERFACE SYSTEM SODIUM 141 136 - 145 mEq/L INTERFACE SYSTEM POTASSIUM 3.6 3.5 - 5.0 mEq/L INTERFACE SYSTEM CHLORIDE 99 95 - 110 mEq/L INTERFACE SYSTEM CO2 28 22 - 32 mmol/l INTERFACE SYSTEM ANION GAP 18 9 - 20 mEq/L INTERFACE SYSTEM OSMOLALITY, CALCULATED 302(H) 275 - 295 mOsm/Kg INTERFACE SYSTEM CALCIUM 9.7 8.4 - 10.5 mg/dL INTERFACE SYSTEM 09/19/2004 8:22 AM CDT Kyaw Coley MD CHEMISTRY ORDERABLES Final Result INTERFACE SYSTEM Refer to clinic/hospital department documented in this encounter Visit Diagnoses Diagnosis Other and unspecified angina pectoris- Primary documented in this encounter Additional Health Concerns Infection Onset Date Last Indicated Resolved Time R/O COVID-19 05/03/2020 05/03/2020 05/03/2020 5:06 AM ADULT LITERACY INSTRUCTOR documented as of this encounter Care Teams Nut Packer Relationship Specialty Start Date End Date Daniel Mae MD [address] [facility] [address] [place] [phone] PCP - General Family Practice 12/17/15 documented as of this encounter
--- OUTSIDE RECORDS SUMMARY | 2025-01-12 22:50 | XMS_ITS | Encounter Summary ---
Author Organization [facility] Address [address] [place] [address] Care Team Providers Care Associate Director Of Sales Name Role Phone Daniel Mae MD Primary Care Provider [phone] [phone] Encounter Details Date Type Department Care Team (Latest Contact Info) Description 05/12/2003 Outpatient [facility]- [address] [phone] Syd Avilez DO NO ADDRESS ON FILE ACUTE STRESS REACT NOS (Primary Dx); BACKACHE NOS Social History Tobacco Use Types Packs/Day Years Used Date Smoking Tobacco: Never Assessed Comments Unknown Sex and Gender Information Value Date Recorded Sex Assigned at Not on file Legal Sex Female 4:24 AM LEADED GLASS INSTALLER Gender Identity Not on file Sexual Orientation Not on file documented as of this encounter Plan of Treatment Not on file documented as of this encounter Visit Diagnoses Diagnosis Unspecified acute reaction to stress- Primary Backache, unspecified documented in this encounter Additional Health Concerns Infection Onset Date Last Indicated Resolved Time R/O COVID-19 05/03/2020 05/03/2020 05/03/2020 5:06 AM LEADED GLASS INSTALLER documented as of this encounter Care Teams Associate Director Of Sales Relationship Specialty Start Date End Date Daniel Mae MD [address] [facility] [address] [place] [phone] PCP - General Family Practice 12/17/15 documented as of this encounter
--- OUTSIDE RECORDS SUMMARY | 2025-01-12 22:50 | XMS_ITS | Encounter Summary ---
Author Organization [facility] Address [address] [place] [address] Care Team Providers Care Program Medical Director Name Role Phone Daniel Mae MD Primary Care Provider [phone] [phone] Encounter Details Date Type Department Care Team (Latest Contact Info) Description 06/12/1999 Outpatient Historical [facility] Family Medicine- [facility] [address] [place] [phone] Vidhi Recinos NO ADDRESS ON FILE Sprain and strain of other specified sites of shoulder and upper arm (Primary Dx) Social History Tobacco Use Types Packs/Day Years Used Date Smoking Tobacco: Never Assessed Comments Unknown Sex and Gender Information Value Date Recorded Sex Assigned at Not on file Legal Sex Female 4:24 AM STORY READER Gender Identity Not on file Sexual Orientation Not on file documented as of this encounter Plan of Treatment Not on file documented as of this encounter Visit Diagnoses Diagnosis Sprain and strain of other specified sites of shoulder and upper arm- Primary documented in this encounter Additional Health Concerns Infection Onset Date Last Indicated Resolved Time R/O COVID-19 05/03/2020 05/03/2020 05/03/2020 5:06 AM STORY READER documented as of this encounter Care Teams Program Medical Director Relationship Specialty Start Date End Date Daniel Mae MD [address] [place] [address] PCP - General Family Practice 12/17/15 documented as of this encounter
--- OUTSIDE RECORDS SUMMARY | 2025-01-12 22:50 | XMS_ITS | Encounter Summary ---
Author Organization [facility] Address [address] [place] [address] Care Team Providers Care Network Support Administrator Name Role Phone Daniel Mae MD Primary Care Provider [phone] Encounter Details Date Type Department Care Team (Latest Contact Info) Description 05/29/2000 Outpatient Historical [facility] Medicine [address] [address] Syd Avilez DO NO ADDRESS ON FILE Unspecified essential hypertension (Primary Dx); Unqualified visual loss, one eye Social History Tobacco Use Types Packs/Day Years Used Date Smoking Tobacco: Never Assessed Comments Unknown Sex and Gender Information Value Date Recorded Sex Assigned at Not on file Legal Sex Female 4:24 AM ROOFING SALES REPRESENTATIVE Gender Identity Not on file Sexual Orientation Not on file documented as of this encounter Plan of Treatment Not on file documented as of this encounter Visit Diagnoses Diagnosis Unspecified essential hypertension- Primary Unqualified visual loss, one eye documented in this encounter Additional Health Concerns Infection Onset Date Last Indicated Resolved Time R/O COVID-19 05/03/2020 05/03/2020 05/03/2020 5:06 AM ROOFING SALES REPRESENTATIVE documented as of this encounter Care Teams Network Support Administrator Relationship Specialty Start Date End Date Daniel Mae MD [address] [address] PCP - General Family Practice 12/17/15 documented as of this encounter
--- OUTSIDE RECORDS SUMMARY | 2025-01-12 22:50 | XMS_ITS | Encounter Summary ---
Author Organization [facility] Address [address] [place] [address] Care Team Providers Care Forest Law And Policy Professor Name Role Phone Daniel Mae MD Primary Care Provider [phone] [phone] Encounter Details Date Type Department Care Team (Latest Contact Info) Description 03/15/1999 Outpatient [facility] Medicine- [facility] [address] [place] [phone] Vidhi Recinos NO ADDRESS ON FILE Unspecified essential hypertension (Primary Dx); Unspecified menopausal and postmenopausal disorder; Screening for malignant neoplasm of the rectum Social History Tobacco Use Types Packs/Day Years Used Date Smoking Tobacco: Never Assessed Comments Unknown Sex and Gender Information Value Date Recorded Sex Assigned at Not on file Legal Sex Female 4:24 AM COAL INSPECTOR Gender Identity Not on file Sexual Orientation Not on file documented as of this encounter Plan of Treatment Not on file documented as of this encounter Visit Diagnoses Diagnosis Unspecified essential hypertension- Primary Unspecified menopausal and postmenopausal disorder Screening for malignant neoplasm of the rectum documented in this encounter Additional Health Concerns Infection Onset Date Last Indicated Resolved Time R/O COVID-19 05/03/2020 05/03/2020 05/03/2020 5:06 AM COAL INSPECTOR documented as of this encounter Care Teams Forest Law And Policy Professor Relationship Specialty Start Date End Date Daniel Mae MD [address] [phone] PCP - General Family Practice 12/17/15 documented as of this encounter
[2025-01-12 22:54] VITALS: BP 178/64; PULSE 90; RESP 20; TEMP 36.6; O2SAT 96; BMI 22.3
--- NOTE | 2025-01-12 22:54 | XRR_ITS ---
PROCEDURE INFORMATION: Exam: XR Chest Exam date and time: 01/12/2025 11:17 PM Age: 79 years old Clinical indication: Pain; Shortness of breath; Chest pressure; Additional info: Cp/sob TECHNIQUE: Imaging protocol: Radiologic exam of the chest. Views: 1 view. COMPARISON: CR XR chest 1V [id number] 07/08/2024 7:49 AM FINDINGS: Lungs: Moderate interstitial prominence, similar compared to prior study likely reflecting chronic lung change. Decreased lung volumes with increasing basilar opacities likely atelectasis. Developing consolidation is difficult to exclude in the setting. Pleural spaces: No pleural effusion or pneumothorax. Heart/Mediastinum: Stable cardiomegaly. Vasculature: Atherosclerotic calcifications of the aorta are noted. Bones/joints: No acute osseous abnormalities are seen. XR/XR chest 1V portable [id number] IMPRESSION: 1. Moderate interstitial prominence, similar compared to prior study likely reflecting chronic lung change. Persistent/recurrent pulmonary edema could also have this appearance. 2. Decreased lung volumes with increasing basilar opacities likely atelectasis. Developing consolidation is difficult to exclude in the setting.
--- NOTE | 2025-01-12 22:54 | ECG_ITS ---
[facility] Date: 2025-01-12 Pat Name: Katy Noble Department: Room: Gender: Female Regulatory Affairs Spec: : 1945 Requested By: Akshat Lanza Order Number: [id number] Reading MD: VARUN BAIRD Measurements Intervals [place] Rate: 94 P: 43 AK: 169 QRS: -54 QRSD: 146 T: 77 QT: 392 QTc: 493 Interpretive Statements SINUS RHYTHM POSSIBLE LEFT ATRIAL ENLARGEMENT [-0.1mV P-WAVE IN V1/V2] INTRAVENTRICULAR CONDUCTION DELAY [130+ ms QRS DURATION] LATERAL MYOCARDIAL INFARCTION , OF INDETERMINATE AGE [40+ ms Q WAVE AND/OR ST/T ABNORMALITY IN I/aVL/V5/V6] Compared to ECG 12/19/2024 13:42:02 Myocardial infarct finding now present Left-axis deviation no longer present Electronically Signed On 01-13-2025 20:12:26 CDT by VARUN BAIRD [email or web address]
[2025-01-12 23:07] LABS: ABG PCO2 37.8 mmHg (35-45); ABG PH Result 7.41 (7.35-7.45); Alveolar-Arterial Oxygen Gradi 9.9 mmHg (5-10); Arterial Blood Gas Hematocrit 41.4 % (37-47); Blood Gas Allen Test Pos; Blood Gas LPM 2.0 %; Blood Gas Operator Identificat gerca; Blood Gas Sample Site Radial, right; Blood Gas Sample Type Arterial; Carboxyhemoglobin 1.8 %THgb (0.4-20.1); Glucose Level-ABG 105.0 mg/dL (70-115); HCO3 ABG 23.9 mmol/L (22-26); Ionized Calcium Level - ABG 1.2 mmol/L (1.1-1.4); Methemoglobin 0.2 % (0.4-1.5); Oxygen Saturation ABG 95.8; PO2 ABG 76.5 mmHg (80.0-100.0); PO2 FiO2 Ratio Arterial Blood 273; Potassium Level - ABG 4.1 mmol/L (3.5-5.0); Sodium Level - ABG 138.0 mmol/L (131-143)
[2025-01-12 23:26] LABS: Hematocrit 45.5 % (36-47); Hemoglobin 13.40 g/dL (11.27-16.99); Mean Corpuscular HGB Conc 29.5 g/dL (30-55); Mean Corpuscular Hemoglobin 23.5 pg (27-33); Mean Corpuscular Volume 79.8 fl (85-98); Nucleated Red Blood Cells % 0.1 %; Platelet Count 596 10^3/cmm (157-399); Red Blood Count 5.70 10^6/uL (3.85-5.65); White Blood Count 17.37 10^3/uL (3.29-11.43)
[2025-01-12 23:26] LABS: Glucose Urine UA Trace (Normal); Nitrate Urine Negative (Negative); Specific Gravity, Urine 1.016 (1.005-1.030)
--- NOTE | 2025-01-12 23:26 | W.ED.NAVMDI ---
Documented by User: [email or web address] Watkins 01/13/25 00:58 HPI - Nausea/Vomiting/Diarrhea General: Chief complaint: Nausea/Vomiting/Diarrhea Stated complaint: N/V Abd pain Time Seen by Provider: 01/12/25 22:40 Source: patient and old records reviewed Mode of arrival: EMS Limitations: no limitations History of Present Illness: Patient is a 79-year-old female with extensive past medical history who is brought in by EMS with complaints of abdominal pain and nausea vomiting for the past few days. She states that she has also been having muscle cramps in her back, that is started to radiate around to her chest. Wears oxygen at night for comfort, is not endorsing any new shortness of breath at this time. States that the vomiting began today, no blood in her vomit. Denies any bowel changes. Past medical history of recurrent cystitis, diabetes, peptic ulcer disease, and GERD in regards to her abdominal history. No reports of abdominal surgeries. Her vitals are stable at this time, she is denying need for pain or nausea medications. States that she has been sweating and having chills. Denies any known sick contact exposure. She notes that the pain in her abdomen and chest has been constant since onset. MD elicited complaint: nausea, vomiting and abdominal pain Onset (ago): day(s) Associated nausea: Yes Associated abdominal pain: Yes Location of pain: Diffuse Pain consistency: constant Severity: moderate Quality: cramping Associated symtoms: Reports chest pain, diaphoresis and nausea; Denies dizziness, dysuria, headache(s) or palpitations Related Data Home Medications ?Medication ?Instructions ?Recorded ?Confirmed acetaminophen 500 mg tablet 500 mg PO Q6H PRN pain 05/31/20 12/19/24 famotidine 20 mg tablet (Pepcid) 20 mg PO BID 05/31/20 12/19/24 gabapentin 300 mg capsule 600 mg PO BEDTIME 05/31/20 12/19/24 insulin degludec 200 unit/mL (3 40 unit SUBCUT QAM 06/05/20 12/19/24 mL) subcutaneous pen (Tresiba FlexTouch U-200 insulin) hydroxyurea 500 mg capsule 500 mg PO EVERY OTHER DAY 12/12/20 12/19/24 atorvastatin 20 mg tablet 20 mg PO DAILY 04/07/21 12/19/24 calcitriol 0.25 mcg capsule 0.25 mcg PO DAILY 09/17/21 12/19/24 lisinopril 5 mg tablet 5 mg PO DAILY 09/21/23 12/19/24 nitroglycerin 0.4 mg sublingual See Rx Instructions .Route .COMPLEX 09/21/23 12/19/24 tablet sertraline 100 mg tablet 100 mg PO QPM 09/21/23 12/19/24 carvedilol 25 mg tablet 25 mg PO BID 01/15/24 12/19/24 tizanidine 2 mg tablet 2 mg PO TID PRN muscle spasms 01/15/24 12/19/24 Previous Rx's ?Medication ?Instructions ?Recorded aspirin 81 mg tablet,delayed 81 mg PO DAILY #90 tabs 04/13/21 release amlodipine 10 mg tablet 10 mg PO DAILY #30 tabs 04/29/21 loperamide 2 mg capsule (Imodium 2 mg PO Q6H PRN loose stool #10 09/22/21 A-D) caps hydralazine 25 mg tablet 75 mg (3 x 25 mg) PO TID #90 tabs 09/25/23 CAM walker #1 ea 12/17/23 Diabetic shoes #1 ea 11/08/24 Allergies Allergy/AdvReac Type Severity Reaction Status Date / Time doxycycline Allergy Mild ADR-Itching Verified 12/19/24 13:47 codeine Allergy ALGY-Hives Verified 12/19/24 13:47 morphine Allergy Unknown Verified 12/19/24 13:47 Penicillins Allergy Unknown Verified 12/19/24 13:47 Sulfa (Sulfonamide Allergy Unknown Verified 12/19/24 13:47 Antibiotics) Review of Systems General: Reports: 10 or more systems reviewed and unremarkable except in HPI and below Const: Reports: chills and diaphoresis; Denies: fever(s), change in appetite or change in weight ENMT: Denies: throat pain or hoarseness Card: Reports: chest pain; Denies: palpitations or lightheadedness Resp: Denies: dyspnea, productive cough or wheezing GI: Reports: abdominal pain, nausea and vomiting; Denies: diarrhea : Denies: flank pain, difficulty voiding, dysuria, urinary frequency or urinary urgency Musc: Reports: back pain; Denies: neck pain Skin/Breast: Denies: rash or new lesions Neuro: Denies: headache(s) or dizziness [facility] PFSH: Medical History 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's joint, right ankle and foot Leukocytosis Depression GERD (gastroesophageal reflux disease) Thrombocytosis Diabetic peripheral neuropathy associated with type 2 diabetes mellitus Carotid artery stenosis Carotid artery disease Acute CVA (cerebrovascular accident) UTI (urinary tract infection) Aphasia Acute kidney injury superimposed on chronic kidney disease Sepsis Aspiration pneumonitis Chronic kidney disease PUD (peptic ulcer disease) Hypertension Stroke Charcot foot due to diabetes mellitus Coronary artery disease Osteomyelitis Diabetes Diabetic foot ulcer History of hyperbaric oxygen therapy Acute cystitis Cerebrovascular accident Patient with ongoing aphasia Surgical History S/P PICC central line placement Patient had tunneled left subclavian central line for IV antibiotics for osteomyelitis which was removed by Dr. Zelaya 2017 S/P carotid endarterectomy Family History Other Family history non-contributory Social History Smoking and tobacco/nicotine status: never used tobacco/nicotine Alcohol intake: never Substance/Drug Use: never Household members: family Housing: House Physical Exam Const: COMMON NORMALS: patient oriented x3 and alert GENERAL APPEARANCE: cooperative NUTRITIONAL APPEARANCE: obese ORIENTATION/CONSCIOUSNESS: Yes awake OTHER: Appears uncomfortable secondary to pain, mild jaundice of skin, ill-appearing HENMT: COMMON NORMALS: normocephalic HEAD & SCALP: normocephalic OTHER: Dry oral mucosa Eye: COMMON NORMALS: Equal, round and reactive pupils present and EOMs intact bilaterally PUPIL: Yes Equal, round and reactive pupils present Neck/C-Spine: COMMON NORMALS: full ROM, supple, no meningeal signs and no JVD Resp: COMMON NORMALS: normal respiratory effort, No retractions, No use of accessory muscles and clear to auscultation bilaterally AUSCULTATION: clear to auscultation bilaterally, no crackles, no rales, no rhonchi and no wheezes Cardio: COMMON NORMALS: no JVD, regular rate, regular rhythm, No gallops present (Cardio), No clicks present (Cardio), No murmurs present (Cardio), No rub (Cardio) and Peripheral pulses 2+ throughout RATE: regular rate RHYTHM: regular rhythm PERIPHERAL PULSES: Peripheral pulses 2+ throughout GI: COMMON NORMALS: Normal to inspection, nondistended, normoactive bowel sounds present, Soft to palpation, non-tender, No hepatosplenomegaly present and no masses AUSCULTATION: Yes normoactive bowel sounds PALPATION: Yes Soft to palpation, No Guarding due to palpation present (GI), No Rigid due to palpation and Yes No hepatosplenomegaly present RECTAL EXAM: deferred OTHER: No significant reproducible abdominal tenderness to palpation : COMMON NORMALS: Yes no CVA tenderness BLADDER/KIDNEY EXAM: Yes no CVA tenderness Back/Pelvis: COMMON NORMALS: no CVA tenderness Extremity: COMMON NORMALS: normal to inspection and full ROM Neuro: COMMON NORMALS: patient oriented x3, moves all extremities, no focal motor deficits and no sensory deficits noted SENSORIUM/ORIENTATION: Yes alert MENINGEAL SIGNS: Yes no meningeal signs Psych: COMMON NORMALS: mental status grossly normal, cooperative and speech normal SPEECH: Yes normal speech Skin: COMMON NORMALS: no rashes or lesions noted GENERAL SKIN EXAM: no rashes or lesions noted Course Vital Signs: Vital signs: Vital Signs Temperature 97.8 F 01/12/25 22:54 Pulse Rate 83 01/13/25 05:00 Respiratory Rate 14 01/13/25 05:00 Blood Pressure 134/58 01/13/25 05:00 Pulse Oximetry 90 01/13/25 05:00 Oxygen Delivery Me thod Nasal Cannula 01/13/25 05:00 Oxygen Flow Rate 3 01/13/25 04:30 MDM - Nausea/Vomiting/Diarrhea Medical Decision Making Patient presented by ambulance for complaints of abdominal pain, nausea vomiting, and chest pain and shortness of breath. Extensive past medical history including recurrent urinary tract infection. Ill-appearing on exam, mild jaundice noted. Vitals have been stable however. Leukocytosis with left shift, acute on chronic kidney injury present and signs of significant urinary tract infection making it clinically relevant for likely urosepsis. Also evidence of troponin elevation likely demand ischemia. Lactic was within normal limits however. Blood cultures obtained. Multiple antibiotic allergies, so she is started on IV push of cefepime after blood cultures, and a sepsis bolus of fluids. Abdomen and pelvis CT without contrast ordered to rule out any obstructive uropathy, this is negative. I spoke to hospitalist, Dr. Douglas, who agrees to accept the patient into the hospital. Dr. Borrero informed of this patient's case and current findings and putting in admit orders. Lab Data 01/12/25 23:15 01/12/25 23:15 Radiology Impressions Chest X-Ray 01/12/25 22:54 IMPRESSION: 1. Moderate interstitial prominence, similar compared to prior study likely reflecting chronic lung change. Persistent/recurrent pulmonary edema could also have this appearance. 2. Decreased lung volumes with increasing basilar opacities likely atelectasis. Developing consolidation is difficult to exclude in the setting. Abdomen/Pelvis CT 01/12/25 23:29 IMPRESSION: 1. Choledocholithiasis with associated intra and extrahepatic ductal dilatation. 2. Cholelithiasis. Distended gallbladder. No definitive CT evidence of cholecystitis. 3. Other nonemergent findings above. COMMENTS: Consistent with the [employer]'s Incidental Findings Committee white paper (J Am Estrella Radiol 2018): Any incidental renal lesion less than 1 cm or classified as too small to characterize, or any incidental cystic renal lesion characterized as simple-appearing, is likely benign. No follow-up imaging is recommended for these lesions per consensus recommendations based on imaging criteria. Gallbladder Ultrasound 01/13/25 01:19 IMPRESSION: 1. Choledocholithiasis with associated extrahepatic bile duct dilatation, and likely early signs of acute cholecystitis. Recommend GI/surgical consultation and therapeutic ERCP. 2. Increased right renal echogenicity, consistent with a component of medical renal disease. No solid renal lesions or hydronephrosis. 3. Partially imaged right pleural effusion. ADDENDUM: 01/13/25 0257 THIS REPORT CONTAINS FINDINGS THAT MAY BE CRITICAL TO PATIENT CARE. The findings were verbally communicated via telephone conference with DELFINO BORRERO at 2:56 AM CDT on 01/13/2025. The findings were acknowledged and understood. Laboratory Results WBC 17.37 10^3/uL (3.29-11.43) H 01/12/25 23:15 RBC 5.70 10^6/uL (3.85-5.65) H 01/12/25 23:15 Hgb 13.40 g/dL (11.27-16.99) 01/12/25 23:15 Hct 45.5 % (36-47) 01/12/25 23:15 MCV 79.8 fl (85-98) L 01/12/25 23:15 MCH 23.5 pg (27-33) L 01/12/25 23:15 MCHC 29.5 g/dL (30-55) L 01/12/25 23:15 RDW 21.5 % (12.1-15.1) H 01/12/25 23:15 Plt Count 596 10^3/cmm (157-399) H 01/12/25 23:15 MPV 9.3 fL (7.4-10.4) 01/12/25 23:15 Neut % (Auto) 92.2 % 01/12/25 23:15 Lymph % (Auto) 2.0 % 01/12/25 23:15 [place] % (Auto) 3.2 % 01/12/25 23:15 Eos % (Auto) 1.0 % 01/12/25 23:15 Baso % (Auto) 0.3 % 01/12/25 23:15 Neut # (Auto) 16.02 10^3/uL (1.8-7.7) H 01/12/25 23:15 Lymph # (Auto) 0.4 10^3/uL (0.8-4.8) L 01/12/25 23:15 [place] # (Auto) 0.6 10^3/uL (0.2-0.9) 01/12/25 23:15 Eos # (Auto) 0.2 10^3/uL (0.0-0.8) 01/12/25 23:15 Baso # (Auto) 0.1 10^3/uL (0.0-0.1) 01/12/25 23:15 Nucleated RBC % (auto) 0.1 % 01/12/25 23:15 Nucleated RBCs # 0.0 /100WBC 01/12/25 23:15 Specimen Type Arterial 01/12/25 23:00 Sample Site Radial, right 01/12/25 23:00 ABG pH 7.41 (7.35-7.45) 01/12/25 23:00 ABG pCO2 37.8 mmHg (35-45) 01/12/25 23:00 ABG pO2 76.5 mmHg (80.0-100.0) L 01/12/25 23:00 ABG PO2/FiO2 Ratio 273 01/12/25 23:00 ABG HCO3 23.9 mmol/L (22-26) 01/12/25 23:00 ABG O2 Saturation 95.8 01/12/25 23:00 ABG Base Excess -0.5 mmol/L (-2.0-2.0) 01/12/25 23:00 Riki Test Pos 01/12/25 23:00 A-a O2 Gradient 9.9 mmHg (5-10) 01/12/25 23:00 Hematocrit 41.4 % (37-47) 01/12/25 23:00 Hgb O2 Saturation 93.8 % (95-100) L 01/12/25 23:00 Carboxyhemoglobin 1.8 %THgb (0.4-20.1) 01/12/25 23:00 Methemoglobin 0.2 % (0.4-1.5) L 01/12/25 23:00 Total Hemoglobin 13.5 g/dL (12-16) 01/12/25 23:00 Sodium 138.0 mmol/L (131-143) 01/12/25 23:00 Potassium 4.1 mmol/L (3.5-5.0) 01/12/25 23:00 Glucose 105.0 mg/dL (70-115) 01/12/25 23:00 Ionized Calcium 1.2 mmol/L (1.1-1.4) 01/12/25 23:00 O2 Delivery Device Nc 01/12/25 23:00 O2 Liters/Min 2.0 % 01/12/25 23:00 FiO2 28.0 % 01/12/25 23:00 Produce Team Lead ID [email or web address] 01/12/25 23:00 Sodium 138 mmol/L (136-145) 01/12/25 23:15 Potassium 4.5 mmol/L (3.5-5.1) 01/12/25 23:15 Chloride 101 mmol/L (98-107) 01/12/25 23:15 Carbon Dioxide 21 mmol/L (22-29) L 01/12/25 23:15 Anion Gap 20.5 (5-19) H 01/12/25 23:15 BUN 48 mg/dL (8-23) H 01/12/25 23:15 Creatinine 3.2 mg/dL (0.5-0.9) H 01/12/25 23:15 GFR Calculation Not Reportable 01/12/25 23:15 Glucose 106 mg/dL (65-115) 01/12/25 23:15 Calculated Osmolality 299 mOsm/kg (285-295) H 01/12/25 23:15 Lactic Acid 1.4 mmol/L (0.5-2.2) 01/12/25 23:17 Calcium 8.8 mg/dL (8.5-10.5) 01/12/25 23:15 Magnesium 2.1 mg/dL (1.7-2.3) 01/12/25 23:15 Total Bilirubin 2.5 mg/dL (0.15-1.2) H 01/12/25 23:15 AST 341 U/L (0-32) H 01/12/25 23:15 ALT 132 U/L (0-33) H 01/12/25 23:15 Alkaline Phosphatase 369 U/L (35-105) H 01/12/25 23:15 Troponin T Baseline 41 ng/L (0-10) H 01/12/25 23:15 Troponin T 120 Minute 38.43 ng/L (0-10) H 01/13/25 01:05 Delta Troponin T -2.57 ABS# (0-10) L 01/13/25 01:05 Total Protein 6.3 g/dL (6.6-8.7) L 01/12/25 23:15 Albumin 2.9 g/dL (3.5-5.2) L 01/12/25 23:15 Globulin 3.4 g/dL (1.3-4.6) 01/12/25 23:15 Lipase 32 U/L (13-60) 01/12/25 23:15 Urine Color Dark yellow (Yellow) A 01/12/25 23:19 Urine Appearance Cloudy (CLEAR) A 01/12/25 23:19 Urine pH 5.5 (5-7) 01/12/25 23:19 Ur Specific [place] 1.016 (1.005-1.030) 01/12/25 23:19 Urine Protein 4+ (Negative) A 01/12/25 23:19 Urine Glucose (UA) Trace (Normal) H 01/12/25 23:19 Urine Ketones Negative (Negative) 01/12/25 23:19 Urine Blood Negative (Negative) 01/12/25 23:19 Urine Nitrate Negative (Negative) 01/12/25 23:19 Urine Bilirubin Negative (Negative) 01/12/25 23:19 Urine Urobilinogen 1.0 mg/dL (Negative) 01/12/25 23:19 Ur Leukocyte Esterase 1+ (Negative) A 01/12/25 23:19 Urine RBC 0-2 /hpf (0-2) 01/12/25 23:19 Urine WBC >100 /hpf (0-5) H 01/12/25 23:19 Ur Squamous Epith Cells 0-5 /hpf (0-5) 01/12/25 23:19 Amorphous Sediment Not Reportable 01/12/25 23:19 Urine Bacteria 4+ /hpf (NONE) H 01/12/25 23:19 Hyaline Casts 10.32 /lpf 01/12/25 23:19 Influenza A (PCR) Negative (Negative) 01/12/25 23:04 Influenza Type B (PCR) Negative (Negative) 01/12/25 23:04 RSV (PCR) Negative (Negative) 01/12/25 23:04 SARS-CoV-2 (PCR) Negative (Negative) 01/12/25 23:04 All radiology interpretation(s) finalized by discharge Discharge Plan Discharge Patient Disposition: Admitted As Inpatient Clinical Impression: Choledocholithiasis Sepsis Qualifiers: Sepsis type: sepsis due to unspecified organism Sepsis acute organ dysfunction status: unspecified Qualified Code(s): A41.9 - Sepsis, unspecified organism Urinary tract infection Qualifiers: Urinary tract infection type: site unspecified Hematuria presence: without hematuria Qualified Code(s): N39.0 - Urinary tract infection, site not specified Condition: Stable Coding Level of Care Code ED Inspector Boiler for Chg Fwd Documented by User: Delfino Borrero MD 01/13/25 05:33 HPI - Nausea/Vomiting/Diarrhea General: Chief complaint: Nausea/Vomiting/Diarrhea Stated complaint: N/V Abd pain Time Seen by Provider: 01/12/25 22:40 Related Data Home Medications ?Medication ?Instructions ?Recorded ?Confirmed acetaminophen 500 mg tablet 500 mg PO Q6H PRN pain 05/31/20 12/19/24 famotidine 20 mg tablet (Pepcid) 20 mg PO BID 05/31/20 12/19/24 gabapentin 300 mg capsule 600 mg PO BEDTIME 05/31/20 12/19/24 insulin degludec 200 unit/mL (3 40 unit SUBCUT QAM 06/05/20 12/19/24 mL) subcutaneous pen (Tresiba FlexTouch U-200 insulin) hydroxyurea 500 mg capsule 500 mg PO EVERY OTHER DAY 12/12/20 12/19/24 atorvastatin 20 mg tablet 20 mg PO DAILY 04/07/21 12/19/24 calcitriol 0.25 mcg capsule 0.25 mcg PO DAILY 09/17/21 12/19/24 lisinopril 5 mg tablet 5 mg PO DAILY 09/21/23 12/19/24 nitroglycerin 0.4 mg sublingual See Rx Instructions .Route .COMPLEX 09/21/23 12/19/24 tablet sertraline 100 mg tablet 100 mg PO QPM 09/21/23 12/19/24 carvedilol 25 mg tablet 25 mg PO BID 01/15/24 12/19/24 tizanidine 2 mg tablet 2 mg PO TID PRN muscle spasms 01/15/24 12/19/24 Previous Rx's ?Medication ?Instructions ?Recorded aspirin 81 mg tablet,delayed 81 mg PO DAILY #90 tabs 04/13/21 release amlodipine 10 mg tablet 10 mg PO DAILY #30 tabs 04/29/21 loperamide 2 mg capsule (Imodium 2 mg PO Q6H PRN loose stool #10 09/22/21 A-D) caps hydralazine 25 mg tablet 75 mg (3 x 25 mg) PO TID #90 tabs 09/25/23 CAM walker #1 ea 12/17/23 Diabetic shoes #1 ea 11/08/24 Allergies Allergy/AdvReac Type Severity Reaction Status Date / Time doxycycline Allergy Mild ADR-Itching Verified 12/19/24 13:47 codeine Allergy ALGY-Hives Verified 12/19/24 13:47 morphine Allergy Unknown Verified 12/19/24 13:47 Penicillins Allergy Unknown Verified 12/19/24 13:47 Sulfa (Sulfonamide Allergy Unknown Verified 12/19/24 13:47 Antibiotics) PFSH ED PFSH: Medical History 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's joint, right ankle and foot Leukocytosis Depression GERD (gastroesophageal reflux disease) Thrombocytosis Diabetic peripheral neuropathy associated with type 2 diabetes mellitus Carotid artery stenosis Carotid artery disease Acute CVA (cerebrovascular accident) UTI (urinary tract infection) Aphasia Acute kidney injury superimposed on chronic kidney disease Sepsis Aspiration pneumonitis Chronic kidney disease PUD (peptic ulcer disease) Hypertension Stroke Charcot foot due to diabetes mellitus Coronary artery disease Osteomyelitis Diabetes Diabetic foot ulcer History of hyperbaric oxygen therapy Acute cystitis Cerebrovascular accident Patient with ongoing aphasia Surgical History S/P PICC central line placement Patient had tunneled left subclavian central line for IV antibiotics for osteomyelitis which was removed by Dr. Zelaya 2017 S/P carotid endarterectomy Family History Other Family history non-contributory Social History Smoking and tobacco/nicotine status: never used tobacco/nicotine Alcohol intake: never Substance/Drug Use: never Household members: family Housing: House Course Vital Signs: Vital signs: Vital Signs Temperature 97.8 F 01/12/25 22:54 Pulse Rate 83 01/13/25 05:00 Respiratory Rate 14 01/13/25 05:00 Blood Pressure 134/58 01/13/25 05:00 Pulse Oximetry 90 01/13/25 05:00 Oxygen Delivery Me thod Nasal Cannula 01/13/25 05:00 Oxygen Flow Rate 3 01/13/25 04:30 MDM - Nausea/Vomiting/Diarrhea Medical Decision Making Patient presented by ambulance for complaints of abdominal pain, nausea vomiting, and chest pain and shortness of breath. Extensive past medical history including recurrent urinary tract infection. Ill-appearing on exam, mild jaundice noted. Vitals have been stable however. Leukocytosis with left shift, acute on chronic kidney injury present and signs of significant urinary tract infection making it clinically relevant for likely urosepsis. Also evidence of troponin elevation likely demand ischemia. Lactic was within normal limits however. Blood cultures obtained. Multiple antibiotic allergies, so she is started on IV push of cefepime after blood cultures, and a sepsis bolus of fluids. Abdomen and pelvis CT without contrast ordered to rule out any obstructive uropathy, this is negative. I spoke to hospitalist, Dr. Douglas, who agrees to accept the patient into the hospital. Dr. Borrero informed of this patient's case and current findings and putting in admit orders. Saw patient above midlevel patient does have right upper quadrant pain and tenderness she has elevated bilirubin and liver enzymes CT shows choledocholithiasis with ductal dilatation will transfer to [place] for higher level of care for GI and ERCP Lab Data 01/12/25 23:15 01/12/25 23:15 Radiology Impressions Chest X-Ray 01/12/25 22:54 IMPRESSION: 1. Moderate interstitial prominence, similar compared to prior study likely reflecting chronic lung change. Persistent/recurrent pulmonary edema could also have this appearance. 2. Decreased lung volumes with increasing basilar opacities likely atelectasis. Developing consolidation is difficult to exclude in the setting. Abdomen/Pelvis CT 01/12/25 23:29 IMPRESSION: 1. Choledocholithiasis with associated intra and extrahepatic ductal dilatation. 2. Cholelithiasis. Distended gallbladder. No definitive CT evidence of cholecystitis. 3. Other nonemergent findings above. COMMENTS: Consistent with the [employer]'s Incidental Findings Committee white paper (J Am Estrella Radiol 2018): Any incidental renal lesion less than 1 cm or classified as too small to characterize, or any incidental cystic renal lesion characterized as simple-appearing, is likely benign. No follow-up imaging is recommended for these lesions per consensus recommendations based on imaging criteria. Gallbladder Ultrasound 01/13/25 01:19 IMPRESSION: 1. Choledocholithiasis with associated extrahepatic bile duct dilatation, and likely early signs of acute cholecystitis. Recommend GI/surgical consultation and therapeutic ERCP. 2. Increased right renal echogenicity, consistent with a component of medical renal disease. No solid renal lesions or hydronephrosis. 3. Partially imaged right pleural effusion. ADDENDUM: 01/13/25 0257 THIS REPORT CONTAINS FINDINGS THAT MAY BE CRITICAL TO PATIENT CARE. The findings were verbally communicated via telephone conference with DELFINO BORRERO at 2:56 AM CDT on 01/13/2025. The findings were acknowledged and understood. Laboratory Results WBC 17.37 10^3/uL (3.29-11.43) H 01/12/25 23:15 RBC 5.70 10^6/uL (3.85-5.65) H 01/12/25 23:15 Hgb 13.40 g/dL (11.27-16.99) 01/12/25 23:15 Hct 45.5 % (36-47) 01/12/25 23:15 MCV 79.8 fl (85-98) L 01/12/25 23:15 MCH 23.5 pg (27-33) L 01/12/25 23:15 MCHC 29.5 g/dL (30-55) L 01/12/25 23:15 RDW 21.5 % (12.1-15.1) H 01/12/25 23:15 Plt Count 596 10^3/cmm (157-399) H 01/12/25 23:15 MPV 9.3 fL (7.4-10.4) 01/12/25 23:15 Neut % (Auto) 92.2 % 01/12/25 23:15 Lymph % (Auto) 2.0 % 01/12/25 23:15 [place] % (Auto) 3.2 % 01/12/25 23:15 Eos % (Auto) 1.0 % 01/12/25 23:15 Baso % (Auto) 0.3 % 01/12/25 23:15 Neut # (Auto) 16.02 10^3/uL (1.8-7.7) H 01/12/25 23:15 Lymph # (Auto) 0.4 10^3/uL (0.8-4.8) L 01/12/25 23:15 [place] # (Auto) 0.6 10^3/uL (0.2-0.9) 01/12/25 23:15 Eos # (Auto) 0.2 10^3/uL (0.0-0.8) 01/12/25 23:15 Baso # (Auto) 0.1 10^3/uL (0.0-0.1) 01/12/25 23:15 Nucleated RBC % (auto) 0.1 % 01/12/25 23:15 Nucleated RBCs # 0.0 /100WBC 01/12/25 23:15 Specimen Type Arterial 01/12/25 23:00 Sample Site Radial, right 01/12/25 23:00 ABG pH 7.41 (7.35-7.45) 01/12/25 23:00 ABG pCO2 37.8 mmHg (35-45) 01/12/25 23:00 ABG pO2 76.5 mmHg (80.0-100.0) L 01/12/25 23:00 ABG PO2/FiO2 Ratio 273 01/12/25 23:00 ABG HCO3 23.9 mmol/L (22-26) 01/12/25 23:00 ABG O2 Saturation 95.8 01/12/25 23:00 ABG Base Excess -0.5 mmol/L (-2.0-2.0) 01/12/25 23:00 Riki Test Pos 01/12/25 23:00 A-a O2 Gradient 9.9 mmHg (5-10) 01/12/25 23:00 Hematocrit 41.4 % (37-47) 01/12/25 23:00 Hgb O2 Saturation 93.8 % (95-100) L 01/12/25 23:00 Carboxyhemoglobin 1.8 %THgb (0.4-20.1) 01/12/25 23:00 Methemoglobin 0.2 % (0.4-1.5) L 01/12/25 23:00 Total Hemoglobin 13.5 g/dL (12-16) 01/12/25 23:00 Sodium 138.0 mmol/L (131-143) 01/12/25 23:00 Potassium 4.1 mmol/L (3.5-5.0) 01/12/25 23:00 Glucose 105.0 mg/dL (70-115) 01/12/25 23:00 Ionized Calcium 1.2 mmol/L (1.1-1.4) 01/12/25 23:00 O2 Delivery Device Nc 01/12/25 23:00 O2 Liters/Min 2.0 % 01/12/25 23:00 FiO2 28.0 % 01/12/25 23:00 Produce Team Lead ID [email or web address] 01/12/25 23:00 Sodium 138 mmol/L (136-145) 01/12/25 23:15 Potassium 4.5 mmol/L (3.5-5.1) 01/12/25 23:15 Chloride 101 mmol/L (98-107) 01/12/25 23:15 Carbon Dioxide 21 mmol/L (22-29) L 01/12/25 23:15 Anion Gap 20.5 (5-19) H 01/12/25 23:15 BUN 48 mg/dL (8-23) H 01/12/25 23:15 Creatinine 3.2 mg/dL (0.5-0.9) H 01/12/25 23:15 GFR Calculation Not Reportable 01/12/25 23:15 Glucose 106 mg/dL (65-115) 01/12/25 23:15 Calculated Osmolality 299 mOsm/kg (285-295) H 01/12/25 23:15 Lactic Acid 1.4 mmol/L (0.5-2.2) 01/12/25 23:17 Calcium 8.8 mg/dL (8.5-10.5) 01/12/25 23:15 Magnesium 2.1 mg/dL (1.7-2.3) 01/12/25 23:15 Total Bilirubin 2.5 mg/dL (0.15-1.2) H 01/12/25 23:15 AST 341 U/L (0-32) H 01/12/25 23:15 ALT 132 U/L (0-33) H 01/12/25 23:15 Alkaline Phosphatase 369 U/L (35-105) H 01/12/25 23:15 Troponin T Baseline 41 ng/L (0-10) H 01/12/25 23:15 Troponin T 120 Minute 38.43 ng/L (0-10) H 01/13/25 01:05 Delta Troponin T -2.57 ABS# (0-10) L 01/13/25 01:05 Total Protein 6.3 g/dL (6.6-8.7) L 01/12/25 23:15 Albumin 2.9 g/dL (3.5-5.2) L 01/12/25 23:15 Globulin 3.4 g/dL (1.3-4.6) 01/12/25 23:15 Lipase 32 U/L (13-60) 01/12/25 23:15 Urine Color Dark yellow (Yellow) A 01/12/25 23:19 Urine Appearance Cloudy (CLEAR) A 01/12/25 23:19 Urine pH 5.5 (5-7) 01/12/25 23:19 Ur Specific [place] 1.016 (1.005-1.030) 01/12/25 23:19 Urine Protein 4+ (Negative) A 01/12/25 23:19 Urine Glucose (UA) Trace (Normal) H 01/12/25 23:19 Urine Ketones Negative (Negative) 01/12/25 23:19 Urine Blood Negative (Negative) 01/12/25 23:19 Urine Nitrate Negative (Negative) 01/12/25 23:19 Urine Bilirubin Negative (Negative) 01/12/25 23:19 Urine Urobilinogen 1.0 mg/dL (Negative) 01/12/25 23:19 Ur Leukocyte Esterase 1+ (Negative) A 01/12/25 23:19 Urine RBC 0-2 /hpf (0-2) 01/12/25 23:19 Urine WBC >100 /hpf (0-5) H 01/12/25 23:19 Ur Squamous Epith Cells 0-5 /hpf (0-5) 01/12/25 23:19 Amorphous Sediment Not Reportable 01/12/25 23:19 Urine Bacteria 4+ /hpf (NONE) H 01/12/25 23:19 Hyaline Casts 10.32 /lpf 01/12/25 23:19 Influenza A (PCR) Negative (Negative) 01/12/25 23:04 Influenza Type B (PCR) Negative (Negative) 01/12/25 23:04 RSV (PCR) Negative (Negative) 01/12/25 23:04 SARS-CoV-2 (PCR) Negative (Negative) 01/12/25 23:04 Discharge Plan Discharge Patient Disposition: Admitted As Inpatient Clinical Impression: Choledocholithiasis Sepsis Qualifiers: Sepsis type: sepsis due to unspecified organism Sepsis acute organ dysfunction status: unspecified Qualified Code(s): A41.9 - Sepsis, unspecified organism Urinary tract infection Qualifiers: Urinary tract infection type: site unspecified Hematuria presence: without hematuria Qualified Code(s): N39.0 - Urinary tract infection, site not specified Condition: Stable Coding Level of Care Code ED Inspector Boiler for [facility]
--- NOTE | 2025-01-12 23:29 | CTR_ITS ---
PROCEDURE INFORMATION: Exam: CT Abdomen And Pelvis Without Contrast Exam date and time: 01/13/2025 12:30 AM Age: 79 years old Clinical indication: Abdominal pain; Additional info: Cp, abd pain, leukocytosis, changed to without per provider due to kidney function TECHNIQUE: Imaging protocol: Computed tomography of the abdomen and pelvis without contrast. Radiation optimization: All CT scans at this facility use at least one of these dose optimization techniques: automated exposure control; mA and/or kV adjustment per patient size (includes targeted exams where dose is matched to clinical indication); or iterative reconstruction. COMPARISON: CT abdomen pelvis w con* [id number] 09/23/2023 8:05 PM RADIATION DOSE METRICS: Total DLP (mGy-cm): 963.6 FINDINGS: Pleural spaces: Small right and trace left pleural effusions with adjacent atelectasis. Heart: Mild cardiomegaly. No pericardial effusion or pericardial thickening. Liver: Suboptimal evaluation of the liver due to lack of intravenous contrast. Heterogeneity without definitive mass. Gallbladder and biliary ducts: Gallstones are identified distended gallbladder. No gallbladder pericholecystic. Multiple calcifications along the course of the common bile duct consistent with choledocholithiasis. There is mild intra and extrahepatic ductal dilatation, assessed on noncontrast imaging. Common bile duct measures a proximally 11 mm in diameter. Pancreas: The pancreas is atrophic without obvious abnormality. Spleen: Mild splenomegaly. The spleen measures 13.6 cm in length. Adrenal glands: The adrenal glands are normal. Kidneys and ureters: No hydronephrosis. Multiple bilateral renal calcifications are likely vascular in origin. There may be tiny nonobstructive renal calculi. Bilateral renal lesions are indeterminate on noncontrast imaging. Stomach and bowel: Moderate colonic diverticulosis without diverticulitis. There is no large or small bowel obstruction. There is no evidence of bowel wall thickening. Appendix: A normal appendix is not identified. There is no secondary evidence of acute appendicitis. Intraperitoneal space: No inflammatory changes are identified. There is no free fluid or fluid collection seen. There is no pneumoperitoneum. Vasculature: Atherosclerotic calcifications of the aorta are present. No aneurysm is identified. 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 Lymph nodes: No enlarged lymph nodes are identified. Urinary bladder: The bladder is unremarkable. Reproductive: The uterus is absent. Bones/joints: No acute osseous abnormalities are seen. Stable posterior fusion changes of the lumbar spine. Soft tissues: Mild diffuse subcutaneous edema. CT/CT kidney stone [id number] IMPRESSION: 1. Choledocholithiasis with associated intra and extrahepatic ductal dilatation. 2. Cholelithiasis. Distended gallbladder. No definitive CT evidence of cholecystitis. 3. Other nonemergent findings above. COMMENTS: Consistent with the [employer]'s Incidental Findings Committee white paper (J Am Estrella Radiol 2018): Any incidental renal lesion less than 1 cm or classified as too small to characterize, or any incidental cystic renal lesion characterized as simple-appearing, is likely benign. No follow-up imaging is recommended for these lesions per consensus recommendations based on imaging criteria.
[2025-01-12 23:31] LABS: Add Urine Microscopic? YES
[2025-01-12 23:44] LABS: Respiratory Syncytial Virus Ce NEGATIVE (Negative); SARS-CoV-2 PCR NEGATIVE (Negative)
[2025-01-12 23:47] LABS: Troponin(5th) Baseline 41 ng/L (0-10)
[2025-01-12 23:49] LABS: Alanine Aminotransferase 132 U/L (0-33); Albumin Level 2.9 g/dL (3.5-5.2); Alkaline Phosphatase 369 U/L (35-105); Anion Gap 20.5 (5-19); Aspartate Amino Transferase 341 U/L (0-32); Blood Urea Nitrogen 48 mg/dL (8-23); Calcium 8.8 mg/dL (8.5-10.5); Carbon Dioxide 21 mmol/L (22-29); Chloride 101 mmol/L (98-107); Creatinine Clr Calc Pharmacy 16.6205; Globulin 3.4 g/dL (1.3-4.6); Glucose 106 mg/dL (65-115); Lipase 32 U/L (13-60); Magnesium 2.1 mg/dL (1.7-2.3); Osmolality Calculated 299 mOsm/kg (285-295); Potassium 4.5 mmol/L (3.5-5.1); Sodium 138 mmol/L (136-145); Total Protein 6.3 g/dL (6.6-8.7)
[2025-01-12 23:50] LABS: Lactic Sepsis W/Reflex 1.4 mmol/L (0.5-2.2)
[2025-01-13] VITALS (16 sets, daily range): BP systolic 119–158; BP diastolic 52–67; PULSE 74–92; RESP 14–18; O2SAT 90–97
[2025-01-13] MEDS: cefepime 1,000 mg SDV 1000 MG IVP (00:18)
[2025-01-13] MEDS: HYDROmorphone 0.5 MG/0.5 ML INJ IVP ×2 (01:09→02:04)
--- NOTE | 2025-01-13 01:19 | USR_ITS ---
PROCEDURE INFORMATION: Exam: US Abdomen, Limited; Right Upper Quadrant Exam date and time: 01/13/2025 1:59 AM Age: 79 years old Clinical indication: Abdominal pain; Epigastric; Additional info: Ruq pain TECHNIQUE: Imaging protocol: Real time ultrasound of the abdomen with image documentation. Limited exam focused on the right upper quadrant. COMPARISON: CT abdomen and pelvis without contrast dated 01/13/2025 FINDINGS: Pleural spaces: Partially imaged right pleural effusion. Liver: Hepatic echogenicity is within normal limits. No surface nodularity is noted. No hepatic lesions are identified. Gallbladder: The gallbladder is distended measuring up to 13.1 cm. Shadowing stones and biliary sludge is noted. The gallbladder wall is thickened measuring up to 4 mm. No substantial pericholecystic fluid is present. A positive Eddy's sign was reported by the auto glass technician. Biliary ducts: Choledocholithiasis is noted. The common bile duct measures up to 1.4 cm. No intrahepatic bile duct dilatation is seen. Pancreas: Visualized pancreas is unremarkable. Right kidney: The right kidney measures 10.6 x 5.3 x 5.8 cm. Renal echogenicity is increased. Cortical thickness is within normal limits. No hydronephrosis. No nephrolithiasis. Multiple anechoic renal cysts are seen throughout (Bosniak 1). No solid renal lesions are present. Hyperattenuating superior pole lesion on CT likely corresponds to a proteinaceous/hemorrhagic cyst. Aorta: The imaged aorta is nonaneurysmal. Portal venous: The portal vein is patent with hepatopetal flow. US/US gall bladder [id number] IMPRESSION: 1. Choledocholithiasis with associated extrahepatic bile duct dilatation, and likely early signs of acute cholecystitis. Recommend GI/surgical consultation and therapeutic ERCP. 2. Increased right renal echogenicity, consistent with a component of medical renal disease. No solid renal lesions or hydronephrosis. 3. Partially imaged right pleural effusion.
[2025-01-13 01:27] LABS: Troponin 5 2HR 38.43 ng/L (0-10); Troponin 5 2HR Delta -2.57 ABS# (0-10)
[2025-01-13] MEDS: metroNIDAZOLE IV 500 MG/100 ML PREMIX 100 MG IV (02:24)
--- NOTE | 2025-01-13 04:54 | ECG_ITS ---
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[id number] Requested By: Akshat Lanza Order Number: [id number] Jackson MD: VARUN BAIRD Measurements Intervals Foley Rate: 85 P: 0 HI: 0 QRS: -45 QRSD: 129 T: 82 QT: 414 QTc: 493 Interpretive Statements Sinus Rythm LEFT AXIS DEVIATION [QRS AXIS < -30] POSSIBLE LEFT VENTRICULAR HYPERTROPHY [VOLTAGE CRITERIA PLUS LAE OR QRS WIDENING] POSSIBLE ANTERIOR MYOCARDIAL INFARCTION , OF INDETERMINATE AGE [30 ms Q WAVE IN V3/V4, OR R < 0.2 mV IN V4] Compared to ECG 01/12/2025 23:02:42 Left-axis deviation now present Intraventricular conduction delay no longer present Myocardial infarct finding still present Electronically Signed On 01-13-2025 20:16:15 CDT by VARUN BAIRD [email or web address]
[2025-01-13 05:44] LABS: Troponin 5 6HR 38.41 ng/L (0-10); Troponin 5 6HR Delta -2.59 ng/L (0-12)
--- NOTE | 2025-01-13 08:05 | PC.PHAR ---
Pt was unable to take pm medications on 01/12/25.
== END 2025-01-13 08:28 | disposition admitted as inpatient to this hospital (09) ==
PROVIDERS: Physician Assistant; Emergency Provider Emergency Medicine; PCP Family Medicine
DX: K80.50 Calculus of bile duct without cholangitis or cholecystitis without obstruction (principal); A41.9 Sepsis, unspecified organism; N39.0 Urinary tract infection, site not specified; E11.22 Type 2 diabetes mellitus with diabetic chronic kidney disease; I12.9 Hypertensive chronic kidney disease with stage 1 through stage 4 chronic kidney disease, or unspecified chronic kidney disease; N18.9 Chronic kidney disease, unspecified; Z86.73 Personal history of transient ischemic attack (TIA), and cerebral infarction without residual deficits
CPT/HCPCS: 36415; 36416; 36600; 71045; 74176; 76705; 80051; 80053; 81001; 82330; 82805; 82962; 83605; 83690; 83735; 84484; 85025; 87040; 87077; 87086; 87186; 87637; 93005; 96365; 96366; 96367; 96375; 96376; 99285; J0692; J1171; J3373; J3490; J7030; J7050